=== PATIENT | male | born 1940 | race Caucasian/White ===

== ENCOUNTER → 2018-03-27 14:35 | Outpatient (CLI) | payer MEDICARE, OTHER, SELFPAY ==
[2018-03-27 16:02] LABS: Phosphorus 2.9 mg/dL (2.5-4.9)
[2018-04-01 09:35] LABS: KEPPRA (LEVETIRACETAM) 26.1 ug/mL (10.0-40.0)
== END ==
PROVIDERS: Family Provider Family Medicine; PCP Family Medicine; Visit Provider Nurse Practitioner Acute Care
DX: R56.9 Unspecified convulsions (principal)
CPT/HCPCS: 36415; 80177; 83735; 84100

== ENCOUNTER 2018-06-24 16:21 | Emergency (ER) | payer MEDICARE, OTHER, SELFPAY ==
[2018-06-24 16:22] VITALS: BP 99/78; PULSE 62; RESP 18; TEMP 36.8; O2SAT 92; BMI 23.9
--- NOTE | 2018-06-24 16:53 | CT_ITS ---
STUDY: CT BRAIN WITHOUT CONTRAST REASON FOR EXAM: Male, 77 years old. Fall off lawnmower. RADIATION DOSAGE (If Supplied By Facility): CTDIvol = ( 44.99 ) mGy, DLP = ( 779.24 ) mGycm TECHNIQUE: Transaxial CT imaging of the brain was performed without administration of intravenous contrast material. Individualized dose optimization techniques were used for this CT. COMPARISON: October 28, 2017 FINDINGS: Normal soft tissue structures. Normal calvarium. There is mild cerebral atrophy with widening of the extra-axial spaces and ventricular dilatation. Normal white matter tracts of the cerebral hemispheres. There is a low-attenuation focus again seen within the left basal ganglia consistent with a old lacunar infarct. Normal brainstem. Normal cerebellum. There is no intracranial hemorrhage. There are no findings of an acute ischemic infarction. There are grossly stable rounded opacities within the left maxillary sinus that likely reflect mucous retention cysts or polyps. There is opacification of the left mastoid air cells again visualized consistent with a history of mastoiditis. There is trace opacification of the right mastoid air cells. CT/Brain/Head without Contrast IMPRESSION: Chronic involutional changes of the brain. Old left basal ganglia lacunar infarct. Opacification of the mastoid air cells, left greater than right consistent with a history of mastoiditis. No acute intracranial process. Electronically Signed: Yasmeen Valle MD at 17:56 EDT Tel , Service support ,
[2018-06-24] MEDS: fentaNYL 100 MCG/2 ML Ampul 50 MCG IV (17:18)
--- NOTE | 2018-06-24 17:30 | RAD_ITS ---
STUDY: X-RAY - RIGHT HUMERUS REASON FOR EXAM: Male, 77 years old. Fall off lawnmower. TECHNIQUE: For view(s) of the humerus. COMPARISON: None. FINDINGS: There is a comminuted and impacted proximal humeral fracture. The fracture extends into the humeral head. No dislocation is seen. There is a radial head fracture visualized as well. The bones are diffusely demineralized. There is no demonstrated fracture or osseous destructive process. There is no demonstrated soft tissue abnormality. RAD/Humerus min 2 Views IMPRESSION: Comminuted proximal humeral fracture. Radial head fracture. Electronically Signed: Yasmeen Valle MD at 18:29 EDT Tel , Service support ,
[2018-06-24 18:28] VITALS: BP 129/78; PULSE 72; RESP 14; O2SAT 97
[2018-06-24] MEDS: HYDROmorphone 1 MG/ML Syringe IV (18:28)
--- NOTE | 2018-06-24 18:39 | ED.DCSUM_ITS ---
- ER Visit Summary Date of Service: 06/24/18 Chief Complaint: [Injury right shoulder] History of Present Illness: The patient is a 77 M [presents the emergency department with complaint of injury to the right shoulder that occurred when he fell off of his lawnmower today. Patient was on a riding lawnmower when he rolled off of it into some bushes injuring his right shoulder. Patient did not have loss of consciousness. Patient was unable to get up afterwards. Patient denies the mower landing on top of them. He denies any neck pain or headache. Patient denies chest pain or abdominal pain. Patient denies any hip pain.] Physical Examination: [HEENT-PERRLA, EOMI. Cranial nerves II through XII grossly intact. TMs clear. Mucous membranes moist. No adenopathy. No C- spine tenderness on palpation and he has normal active range of motion is painless. Cardiovascular-regular rate and rhythm without murmur or ectopy Lungs-clear to auscultation, chest wall stable without crepitus or subcu emphysema Abdomen-normoactive bowel sounds, soft, nontender, no rebound or rigidity, no peritoneal signs. Extremities-intact ?4, normal range of motion, normal pulses. Patient has tenderness over the right proximal humerus. He has limited range of motion of the glenohumeral joint secondary to pain. He is neurovascular intact distally. No pain at the radial head or elbow. No pain with pronation or supination of the forearm.] Test Results: [CT scan of the brain without contrast showed an left basal ganglia lacunar infarct otherwise nothing acute or traumatic. Patient had x- rays of the right humerus that showed a proximal humerus fracture and radial head fracture.] Emergency Department Course and Treatment: [Patient initially was given fentanyl 50 mcg IV and he did not have much pain relief with that therefore he was given a milligram of Dilaudid IV. Patient was placed in a sling.] Treatment Plan: [Patient to follow-up with orthopedics on-call Dr. Alfonso Mai within next 3-5 days] Disposition: [Discharged home in stable condition] Impression: [Fall Right proximal humerus fracture Right radial head fracture] This note was generated with [employer] software. It may contain incorrect words, spelling, and punctuation that were not noted in review of the chart prior to signing ED Disposition - Plan for ED Patient: Chief Complaint: Fall Referrals: Kaiden Durham III, MD [Primary Care Provider] -
--- NOTE | 2018-06-24 18:39 | ED.DEP ---
ED Disposition - Plan for ED Patient: Chief Complaint: Fall Instructions: ED Mechanical Fall, ED Fx Upper Ext Prescriptions: Hydrocodone/Acetaminophen [[place] 5-325 Tablet] 1 ea PO 4X/DAY PRN PRN 5 Days #20 tab PRN Reason: Pain Referrals: Kaiden Durham III, MD [Primary Care Provider] - Alfonso Mai DO [STAFF PHYSICIAN] - 3-5 Days
--- NOTE | 2018-06-24 18:42 | DCINST.ED_ITS ---
ED Disposition - Plan for ED Patient: Chief Complaint: Fall Instructions: ED Mechanical Fall, ED Fx Upper Ext Prescriptions: Hydrocodone/Acetaminophen [[place] 5-325 Tablet] 1 ea PO 4X/DAY PRN PRN 5 Days # 20 tab PRN Reason: Pain Referrals: Kaiden Durham III, MD [Primary Care Provider] - Alfonso Mai DO [STAFF PHYSICIAN] - 3-5 Days
== END 2018-06-24 19:17 | disposition home or self-care (01) ==
PROVIDERS: Emergency Provider Emergency Medicine; Family Provider Family Medicine; PCP Family Medicine
DX: S42.201A Unspecified fracture of upper end of right humerus, initial encounter for closed fracture (principal); S52.121A Displaced fracture of head of right radius, initial encounter for closed fracture; W28.XXXA Contact with powered lawn mower, initial encounter; Y93.89 Activity, other specified; Y92.9 Unspecified place or not applicable; I10 Essential (primary) hypertension; G40.909 Epilepsy, unspecified, not intractable, without status epilepticus; Z79.82 Long term (current) use of aspirin; Z87.891 Personal history of nicotine dependence
CPT/HCPCS: 70450; 73060; 93005; 96374; 96375; 99283

== ENCOUNTER → 2018-10-16 10:13 | Outpatient (CLI) | payer MEDICARE, OTHER, SELFPAY ==
[2018-10-16 13:18] LABS: PSA,Total- Diagnostic 0.65 ng/mL (0.0-4.0)
--- OUTSIDE RECORDS SUMMARY | 2018-12-11 12:09 | XMS RPT_ITS ---
:1940 Author Organization [facility] Care Team Providers Name Role Phone SUE THOMPSON (BEHAVIORAL HEALTH ASSOCIATE) Attending Unavailable SUE THOMPSON (BEHAVIORAL HEALTH ASSOCIATE) Referring Unavailable CEBUL III, KAIDEN Christensen Referring Unavailable SUE THOMPSON (BEHAVIORAL HEALTH ASSOCIATE) Referring Unavailable SUE THOMPSON (BEHAVIORAL HEALTH ASSOCIATE) Attending Unavailable SUE THOMPSON (BEHAVIORAL HEALTH ASSOCIATE) Referring Unavailable HENRIQUE REYES Attending Unavailable CEBUL III, KAIDEN A Referring Unavailable SONIYA MOON (PA) Attending Unavailable CEBUL III, KAIDEN A Referring Unavailable SUE THOMPSON (BEHAVIORAL HEALTH ASSOCIATE) Referring Unavailable SUE THOMPSON (BEHAVIORAL HEALTH ASSOCIATE) Referring Unavailable CEBUL III, KAIDEN A Attending Unavailable SUE THOMPSON (BEHAVIORAL HEALTH ASSOCIATE) Referring Unavailable Saba Thomason BEHAVIORAL HEALTH ASSOCIATE-C Attending Unavailable Cebul III, Kaiden Primary Care Unavailable Saba Thomason BEHAVIORAL HEALTH ASSOCIATE-C Referring Unavailable Cebul III, Kaiden Primary Care Unavailable Jessi Felix Attending Unavailable Ruperto Masters Attending Unavailable Ruperto Masters Referring Unavailable Cebul III, Kaiden Primary Care Unavailable PROBLEMS PROBLEMS DATE TYPE CONDITION / CODE ATTENDING STATUS SOURCE 10/16/2018 Unknown Z12.5 - Encounter Ruperto Masters Active [facility] for screening for [facility] malignant neoplasm [facility] / Repository Z12.5(ICD-10) 10/16/2018 Unknown Z85.46 - Personal Ruperto Masters Active [facility] history of Community malignant neoplasm [facility] / Repository Z85.46(ICD-10) 06/24/2018 Unknown S42.309A - Jessi Felix Active [facility] Unspecified Community fracture of shaft [facility] of humerus, Repository unspecified arm, initial encounter for closed fracture / S42.309A(ICD-10) 06/20/2018 Active Encounter for NA Active [facility] screening for [place] malignant neoplasm Repository of colon / Z12.11(ICD-10) 05/30/2018 Active Unknown / ERIC, Active [facility] UNK(Unknown) HENRIQUE T [place] Repository 05/02/2018 Active Essential NA Active [facility] (primary) [place] hypertension / Repository I10(ICD-10) 05/02/2018 Active Other forms of NA Active [facility] dyspnea / [place] R06.09(ICD-10) Repository 09/19/2017 Active Vitamin D NA Active [facility] deficiency, [place] unspecified / Repository E55.9(ICD-10) 05/02/2018 Active Other osteoporosis NA Active [facility] without current [place] pathological Repository fracture / M81.8(ICD-10) PROCEDURES PROCEDURES No Procedure Records FoundRESULTS RESULTS PSA,TOTAL- DIAGNOSTIC Collected: 10/16/2018 Status: F Source: [place] 10:23 AM [facility] TYPE CODE TESTS RESULT OUT OF RANGE REFERENCE UNITS LAB L501.9940 0.0-4.0 ng/mL PSA, Normal DIAGNOSTIC 0.65 Result Comment: This test was performed using the TPSA assay method for the [employer] chemistry system. Values obtained with different assay methods cannot be used interchangably. When changing PSA assays in the course of monitoring a patient, additional sequential testing should be carried out to confirm baseline values. Performed By: #### L501.9940 #### [facility] [address] [place] [address] [place], [address] 12 LEAD ELECTROCARDIOGRAM Observed: 06/30/2018 Status: F Source: [place] 3:04 PM [facility] Cardiovascular Services [address] [place] [address] 12 Lead EKG 06/24/18 1746 MR#: [id number] Acct: [id number] Name: RAMSES GILLILAND Rep #: [id number] : 1940 77 From: Brady Ferrer MD Attending Dr: Status: DEP ER Ordering Dr: Jessi Felix DO Date: 06/24/18 Location: ED Sex: M C Admitted: Test Reason : Blood Pressure : / mmHG Vent. Rate : 096 BPM Atrial Rate : 089 BPM P-R Int : 000 ms QRS Dur : 098 ms QT Int : 386 ms P-R-T Axes : 000 067 -05 degrees QTc Int : 487 ms Atrial fibrillation with occasional ventricular-paced complexes and with premature ventricular or aberrantly conducted complexes ST AND T wave abnormality, consider anterior ischemia Prolonged QT Abnormal ECG Confirmed by BRADY FERRER MD ([id number]), manager editorial KENDALL ISIDRO ([id number]) on 06/30/2018 3:04:29 PM Referred By: Confirmed By:BRADY FERRER MD 06/30/18 1504 Date Brady Ferrer MD CC: Kaiden Durham III, MD; Jessi Felix DO Signed PROGRESS Observed: 06/27/2018 Status: COMPLETED Source: [place] 3:56 PM [facility] REPOSITORY O ID: [id number] Author: Kaiden Durham III Service: (none) Author Type: Physician Type: Progress Notes Filed: 06/27/2018 6:21 PM Note Text: SUBJECTIVE: This is a 77 year old male that is here today for ER Follow Up. 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 Seen by Dr Alfonso Mai, ortho--tx with sling. No surgery. Reports and copy of the x-ray reviewed. 2. BP-- 3. seizure disorder. Recent visit with Dr Deleon. No recent seizure. 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) 01/31/2015 - Seizures (HCC) 2006 - Tobacco abuse 09/30/2014 - Vascular dementia 09/30/2014 - Vertebral compression fracture 11/04/2017 - Vitamin D deficiency 09/19/2017 Current Outpatient Prescriptions on File Prior to Visit: multivit-min/FA/lycopen/lutein (CENTRUM SILVER MEN ORAL) Take by mouth once daily. lactobacillus combination no.8 (ADULT PROBIOTIC ORAL) Take by mouth as directed. ASCORBIC ACID, VITAMIN C, ORAL Take by mouth as directed. Cholecalciferol, Vitamin D3, 2,000 unit cap Take 1 capsule by mouth once daily. amLODIPine (NORVASC) 5 mg tablet Take 1 tablet by mouth once daily. HYDROcodone-acetaminophen (NORCO) 5-325 mg per tablet Take 1 tablet by mouth every 6 hours as needed (severe pain). levETIRAcetam (KEPPRA) 750 mg tablet Take 750 mg by mouth twice daily. aspirin, enteric coated (ASPIRIN, ENTERIC COATED) 81 mg EC tablet Take 81 mg by mouth once daily. No current facility-administered medications on file prior to visit. FAMILY HISTORY Problem Relation Age of Onset - COPD Mother - COPD Father - Breast Cancer Sister - Cancer Brother Social History Substance Use Topics - Smoking status: Former Smoker Packs/day: 1.00 Years: 30.00 Types: Cigarettes - Smokeless tobacco: Never Used - Alcohol use No BP 125/85 Pulse 87 Resp 18 Ht 188 cm (6' 2) Wt 82.6 kg (182 lb) BMI 23.37 kg/m? . OBJECTIVE: APPEARANCE Well appearing, alert, in no acute distress, well-hydrated, well nourished. NECK Supple, no adenopathy; thyroid symmetric, normal size, no bruits HEART RRR with normal S1 and S2, no murmurs, no gallops, no JVD appreciated LUNG clear to auscultation EXTREMITIES right arm is in a sling with elbow held at 90?. There is mild tenderness in palpating the right lateral deltoid area. No significant swelling of the forearm or right hand Lab Results for LARGE RAMSES S ( ) as of 06/27/2018 16:05 Ref. Range 05/02/2018 15:13 Sodium Latest Ref Range: 136 - 144 mmol/L 145 (H) Potassium Latest Ref Range: 3.7 - 5.1 mmol/L 4.3 Chloride Latest Ref Range: 97 - 105 mmol/L 106 (H) CO2 Latest Ref Range: 22 - 30 mmol/L 27 BUN Latest Ref Range: 9 - 24 mg/dL 13 Creatinine Latest Ref Range: 0.73 - 1.22 mg/dL 0.78 Glucose Latest Ref Range: 74 - 99 mg/dL 90 Calcium Latest Ref Range: 8.5 - 10.2 mg/dL 9.4 Anion Gap Latest Ref Range: 9 - 18 mmol/L 12 eGFR- Unknown >60 eGFR-All Other Races Latest Units: . >60 Vitamin D 25 Hydroxy Latest Ref Range: 31.0 - 80.0 ng/mL 70.7 Hematocrit Latest Ref Range: 39.0 - 51.0 % 44.3 WBC Latest Ref Range: 3.70 - 11.00 k/uL 5.68 RBC Latest Ref Range: 4.20 - 6.00 m/uL 4.57 Hemoglobin Latest Ref Range: 13.0 - 17.0 g/dL 14.3 Platelet Count Latest Ref Range: 150 - 400 k/uL 223 MCV Latest Ref Range: 80.0 - 100.0 fL 96.9 MCH Latest Ref Range: 26.0 - 34.0 pG 31.3 MCHC Latest Ref Range: 30.5 - 36.0 g/dL 32.3 MPV Latest Ref Range: 9.0 - 12.7 fL 12.4 RDW-CV Latest Ref Range: 11.5 - 15.0 % 13.2 Neut% Latest Units: % 56.8 Abs Neut (ANC) Latest Ref Range: 1.45 - 7.50 k/uL 3.20 Lymph% Latest Units: % 26.2 Abs Lymph Latest Ref Range: 1.00 - 4.00 k/uL 1.49 Lander% Latest Units: % 13.9 Abs Lander Latest Ref Range: <0.87 k/uL 0.79 Eosin% Latest Units: % 2.6 Abs Eosin Latest Ref Range: <0.46 k/uL 0.15 Baso% Latest Units: % 0.5 Abs Baso Latest Ref Range: <0.11 k/uL 0.03 Nucleated Reds Latest Ref Range: 0 /100 WBC 0.0 Absolute nRBC Latest Ref Range: <0.01 k/uL <0.01 Diff Type Unknown Auto Diff ASSESSMENT: non displaced impacted subcapital fx R humerus, acute hypertension--at goal 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--stable former smoker PLAN: healthy diet and careful activity follow up with orthopedist and neurologist as appointed same medications return to office 1 yr and as needed SADIA Vaca MD, III MD CNOV Observed: 06/27/2018 Status: COMPLETED Source: [place] 3:00 PM [facility] REPOSITORY Office Visit (FAMPWS) RAMSES GILLILAND ([id number]) 1940 M Date Time Provider Department 06/27/18 3:00 PM KAIDEN DURHAM III During your visit today, we recorded the following information about you: Pulse Respiration Blood pressure Weight 87/minute 18/minute 125/85 82.6 kg Height 1.88 m Kaiden Durham III MD 06/27/2018 6:21 PM Signed SUBJECTIVE: This is a 77 year old male that is here today for ER Follow Up. 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 Seen by Dr Alfonso Mai, ortho--tx with sling. No surgery. Reports and copy of the x-ray reviewed. 2. BP-- 3. seizure disorder. Recent visit with Dr Deleon. No recent seizure. PAST MEDICAL HISTORY Diagnosis Date - Age-related osteoporosis with current pathological fracture 11/04/2017 Dx 09/2017 and started on fosamax - Cataracts, bilateral - Diarrhea following gastrointestinal surgery 09/30/2014 - Heart murmur - History of CVA (cerebrovascular accident) 09/30/2014 - Other osteoporosis without current pathological fracture 10/02/2017 Dx 09/2017 and started on fosamax - Prostate cancer (HCC) 2007 45 radiation treatments - Seizure disorder as sequela of cerebrovascular accident ([facility]) 01/31/2015 - Seizures ([facility]) 2007 - Tobacco abuse 09/30/2014 - Vascular dementia 09/30/2014 - Vertebral compression fracture 11/04/2017 - Vitamin D deficiency 09/19/2017 Current Outpatient Prescriptions on File Prior to Visit: multivit-min/FA/lycopen/lutein (CENTRUM SILVER MEN ORAL) Take by mouth once daily. lactobacillus combination no.8 (ADULT PROBIOTIC ORAL) Take by mouth as directed. ASCORBIC ACID, VITAMIN C, ORAL Take by mouth as directed. Cholecalciferol, Vitamin D3, 2,000 unit cap Take 1 capsule by mouth once daily. amLODIPine (NORVASC) 5 mg tablet Take 1 tablet by mouth once daily. HYDROcodone-acetaminophen (NORCO) 5-325 mg per tablet Take 1 tablet by mouth every 6 hours as needed (severe pain). levETIRAcetam (KEPPRA) 750 mg tablet Take 750 mg by mouth twice daily. aspirin, enteric coated (ASPIRIN, ENTERIC COATED) 81 mg EC tablet Take 81 mg by mouth once daily. No current facility-administered medications on file prior to visit. FAMILY HISTORY Problem Relation Age of Onset - COPD Mother - COPD Father - Breast Cancer Sister - Cancer Brother Social History Substance Use Topics - Smoking status: Former Smoker Packs/day: 1.00 Years: 30.00 Types: Cigarettes - Smokeless tobacco: Never Used - Alcohol use No BP 125/85 Pulse 87 Resp 18 Ht 188 cm (6' 2) Wt 82.6 kg (182 lb) BMI 23.37 kg/m? . OBJECTIVE: APPEARANCE Well appearing, alert, in no acute distress, well- hydrated, well nourished. NECK Supple, no adenopathy; thyroid symmetric, normal size, no bruits HEART RRR with normal S1 and S2, no murmurs, no gallops, no JVD appreciated LUNG clear to auscultation EXTREMITIES right arm is in a sling with elbow held at 90?. There is mild tenderness in palpating the right lateral deltoid area. No significant swelling of the forearm or right hand Lab Results for RAMSES GILLILAND ( ) as of 06/27/2018 16:05 Ref. Range 05/02/2018 15:13 Sodium Latest Ref Range: 136 - 144 mmol/L 145 (H) Potassium Latest Ref Range: 3.7 - 5.1 mmol/L 4.3 Chloride Latest Ref Range: 97 - 105 mmol/L 106 (H) CO2 Latest Ref Range: 22 - 30 mmol/L 27 BUN Latest Ref Range: 9 - 24 mg/dL 13 Creatinine Latest Ref Range: 0.73 - 1.22 mg/dL 0.78 Glucose Latest Ref Range: 74 - 99 mg/dL 90 Calcium Latest Ref Range: 8.5 - 10.2 mg/dL 9.4 Anion Gap Latest Ref Range: 9 - 18 mmol/L 12 eGFR- Unknown >60 eGFR-All Other Races Latest Units: . >60 Vitamin D 25 Hydroxy Latest Ref Range: 31.0 - 80.0 ng/mL 70.7 Hematocrit Latest Ref Range: 39.0 - 51.0 % 44.3 WBC Latest Ref Range: 3.70 - 11.00 k/uL 5.68 RBC Latest Ref Range: 4.20 - 6.00 m/uL 4.57 Hemoglobin Latest Ref Range: 13.0 - 17.0 g/dL 14.3 Platelet Count Latest Ref Range: 150 - 400 k/uL 223 MCV Latest Ref Range: 80.0 - 100.0 fL 96.9 MCH Latest Ref Range: 26.0 - 34.0 pG 31.3 MCHC Latest Ref Range: 30.5 - 36.0 g/dL 32.3 MPV Latest Ref Range: 9.0 - 12.7 fL 12.4 RDW-CV Latest Ref Range: 11.5 - 15.0 % 13.2 Neut% Latest Units: % 56.8 Abs Neut (ANC) Latest Ref Range: 1.45 - 7.50 k/uL 3.20 Lymph% Latest Units: % 26.2 Abs Lymph Latest Ref Range: 1.00 - 4.00 k/uL 1.49 Lander% Latest Units: % 13.9 Abs Lander Latest Ref Range: <0.87 k/uL 0.79 Eosin% Latest Units: % 2.6 Abs Eosin Latest Ref Range: <0.46 k/uL 0.15 Baso% Latest Units: % 0.5 Abs Baso Latest Ref Range: <0.11 k/uL 0.03 Nucleated Reds Latest Ref Range: 0 /100 WBC 0.0 Absolute nRBC Latest Ref Range: <0.01 k/uL <0.01 Diff Type Unknown Auto Diff ASSESSMENT: non displaced impacted subcapital fx R humerus, acute hypertension--at goal 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--stable former smoker PLAN: healthy diet and careful activity follow up with orthopedist and neurologist as appointed same medications return to office 1 yr and as needed SADIA Vaca MD, III MD Frank A Cebul, III MD 06/27/2018 4:06 PM Signed PLAN: healthy diet and careful activity follow up with orthopedist and neurologist as appointed same medications return to office 1 yr and as needed Kaiden Durham III MD Referring Provider: SUE THOMPSON (BEHAVIORAL HEALTH ASSOCIATE) [[id number]] Allergies As of Date: 06/27/2018 (No Known Allergies) Date Reviewed: 06/27/2018 Reviewed by: Beth ([facility]) KAREN Antonio - Fully Assessed Primary Visit Diagnosis: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) [I69.398, G40.909] Other Visit Diagnoses:Hypertension, essential [I10] Other closed fracture of shaft of right humerus, sequela [S42.391S] Order(s):amLODIPine (NORVASC) 5 mg tabletTake 1 tablet by mouth once daily.Disp: 90 tabletRfl: 3 Prescriptions as of 06/27/2018 Sig: AMLODIPINE 5 MG TABLET Take 1 tablet by mouth once d* CENTRUM SILVER MEN ORAL Take by mouth once daily. ADULT PROBIOTIC ORAL Take by mouth as directed. ASCORBIC ACID (VITAMIN C) ORAL Take by mouth as directed. CHOLECALCIFEROL (VITAMIN D3) * Take 1 capsule by mouth once * HYDROCODONE 5 MG-ACETAMINOPHE* Take 1 tablet by mouth every * LEVETIRACETAM 750 MG TABLET Take 750 mg by mouth twice da* ASPIRIN 81 MG TABLET,DELAYED * Take 81 mg by mouth once rohit* Problem List As Of Date 06/27/2018 Noted Resolved Rectal mass [K62.9] INVALID FOR*09/30/2014 History of duodenal ulcer [Z87.19] INVALID FOR* Prostate cancer (HCC) [C61] INVALID FOR* Tobacco abuse [Z72.0] INVALID FOR*09/18/2017 History of CVA (cerebrovascular accident) [Z86.*INVALID FOR* Memory loss [R41.3] INVALID FOR* Vascular dementia [F01.50] INVALID FOR* Diarrhea following gastrointestinal surgery [R1*INVALID FOR*11/04/2017 Seizure disorder as sequela of cerebrovascular *INVALID FOR* Vitamin D deficiency [E55.9] INVALID FOR* More... Vertebral compression fracture (HCC) [OUG9313] INVALID FOR* Age-related osteoporosis with current pathologi*INVALID FOR* More... Hypertension, essential [I10] INVALID FOR* Personal history of malignant neoplasm of prost*INVALID FOR* Closed fracture of shaft of humerus [S42.309A] INVALID FOR* Encounter for screening for malignant neoplasm *INVALID FOR* Other instructions from your clinician: PLAN: healthy diet and careful activity follow up with orthopedist and neurologist as appointed same medications return to office 1 yr and as needed Kaiden Durham III MD Prescriptions ordered this encounter Disp Refills Start End AMLODIPINE 5 MG TABLET 90 t* 3 06/27/2018 Route: ORAL Sig: Take 1 tablet by mouth once daily. Medications Discontinued During This Encounter amLODIPine (NORVASC) 5 mg tablet 30 t* 1 05/02/2018 06/27/2018 Route: ORAL Sig: Take 1 tablet by mouth once daily. Disc: Reason for discontinue is not on file. Encounter Status:Closed by KAIDEN DURHAM III, MD on 06/27/18 DISCHARGE INSTRUCTION Observed: 06/24/2018 Status: F Source: [place] 6:42 PM [facility] Medical Records Department [address] [place] [address] Discharge Instruction 06/24/18 1839 MR#: [id number] Acct: [id number] Name: RAMSES GILLILAND Rep #: [id number] : 1940 77 From: Jessi Felix DO PCP: Kaiden Durham III, MD Status: REG ER ED Disposition - Plan for ED Patient: Chief Complaint: Fall Instructions: ED Mechanical Fall, ED Fx Upper Ext Prescriptions: Hydrocodone/Acetaminophen [[place] 5-325 Tablet] 1 ea PO 4X/DAY PRN PRN 5 Days #20 tab PRN Reason: Pain Referrals: Kaiden Durham III, MD [Primary Care Provider] - Alfonso Mai DO [STAFF PHYSICIAN] - 3-5 Days What to do if you have Problems For any increased pain, shortness of breath, bleeding, nausea or vomiting, chest pain, or any unexpected problems, contact your Primary Care Provider. Call [facility] ([phone]) or report to the closest Emergency Room. Call 911 if necessary. 06/24/18 184 <Electronically signed by Jessi Felix DO> Date Jessi Felix DO Cosigner Signature (If Indicated): Date CC: Kaiden Durahm III, MD EMERGENCY DEPARTMENT Observed: 06/24/2018 Status: F Source: [place] SUMMARY 6:39 PM [facility] Medical Records Department [address] [place] [address] Emergency Department Summary 06/24/18 1837 MR#: [id number] Acct: [id number] Name: RAMSES GILLILAND Rep #: [id number] : 1940 77 From: Jessi Felix DO PCP: Kaiden Durham III, MD Status: REG ER - ER Visit Summary Date of Service: 06/24/18 Chief Complaint: [Injury right shoulder] History of Present Illness: The patient is a 77 M [presents the emergency department with complaint of injury to the right shoulder that occurred when he fell off of his lawnmower today. Patient was on a riding lawnmower when he rolled off of it into some bushes injuring his right shoulder. Patient did not have loss of consciousness. Patient was unable to get up afterwards. Patient denies the mower landing on top of them. He denies any neck pain or headache. Patient denies chest pain or abdominal pain. Patient denies any hip pain.] Physical Examination: [HEENT-PERRLA, EOMI. Cranial nerves II through XII grossly intact. TMs clear. Mucous membranes moist. No adenopathy. No C-spine tenderness on palpation and he has normal active range of motion is painless. Cardiovascular-regular rate and rhythm without murmur or ectopy Lungs-clear to auscultation, chest wall stable without crepitus or subcu emphysema Abdomen-normoactive bowel sounds, soft, nontender, no rebound or rigidity, no peritoneal signs. Extremities-intact 4, normal range of motion, normal pulses. Patient has tenderness over the right proximal humerus. He has limited range of motion of the glenohumeral joint secondary to pain. He is neurovascular intact distally. No pain at the radial head or elbow. No pain with pronation or supination of the forearm.] Test Results: [CT scan of the brain without contrast showed an left basal ganglia lacunar infarct otherwise nothing acute or traumatic. Patient had x-rays of the right humerus that showed a proximal humerus fracture and radial head fracture.] Emergency Department Course and Treatment: [Patient initially was given fentanyl 50 mcg IV and he did not have much pain relief with that therefore he was given a milligram of Dilaudid IV. Patient was placed in a sling.] Treatment Plan: [Patient to follow-up with orthopedics on- call Dr. Alfonso Mai within next 3-5 days] Disposition: [Discharged home in stable condition] Impression: [Fall Right proximal humerus fracture Right radial head fracture] This note was generated with GoGoPin dictation software. It may contain incorrect words, spelling, and punctuation that were not noted in review of the chart prior to signing ED Disposition - Plan for ED Patient: Chief Complaint: Fall Referrals: Kaiden Durham III, MD [Primary Care Provider] - What to do if you have Problems For any increased pain, shortness of breath, bleeding, nausea or vomiting, chest pain, or any unexpected problems, contact your Primary Care Provider. Call [facility] ([phone]) or report to the closest Emergency Room. Call 911 if necessary. 06/24/18 6377 <Electronically signed by Jessi Felix DO> Date Jessi Felix DO Cosigner Signature (If Indicated): Date CC: Kaiden Durham III, MD BRAIN/HEAD WITHOUT Observed: 06/24/2018 Status: F Source: [place] CONTRAST 4:54 PM [facility] Imaging Services [address] [place] [address] Brain/Head without Contrast MR#: [id number] Acct: [id number] Name: RAMSES GILLILAND Rep #: [id number] : 1940 M 77 From: Yasmeen Valle MD PCP: Kaiden Durham III, MD Status: REG ER Study: Brain/Head without Contrast Date of Exam: 06/24/18 Exam# [id number] Ordering Dr: Jessi Felix DO STUDY: CT BRAIN WITHOUT CONTRAST REASON FOR EXAM: Male, 77 years old. Fall off lawnmower. RADIATION DOSAGE (If Supplied By Facility): CTDIvol = ( 44.99 ) mGy, DLP = ( 779.24 ) mGycm TECHNIQUE: Transaxial CT imaging of the brain was performed without administration of intravenous contrast material. Individualized dose optimization techniques were used for this CT. COMPARISON: October 28, 2017 FINDINGS: Normal soft tissue structures. Normal calvarium. There is mild cerebral atrophy with widening of the extra- axial spaces and ventricular dilatation. Normal white matter tracts of the cerebral hemispheres. There is a low-attenuation focus again seen within the left basal ganglia consistent with a old lacunar infarct. Normal brainstem. Normal cerebellum. There is no intracranial hemorrhage. There are no findings of an acute ischemic infarction. There are grossly stable rounded opacities within the left maxillary sinus that likely reflect mucous retention cysts or polyps. There is opacification of the left mastoid air cells again visualized consistent with a history of mastoiditis. There is trace opacification of the right mastoid air cells. CT/Brain/Head without Contrast IMPRESSION: Chronic involutional changes of the brain. Old left basal ganglia lacunar infarct. Opacification of the mastoid air cells, left greater than right consistent with a history of mastoiditis. No acute intracranial process. Electronically Signed: Yasmeen Valle MD at 17:56 EDT Tel , Service support , CC: Kaiden Durham III, MD; Jessi Felix DO Immunologist: Signed HUMERUS MIN 2 VIEWS Observed: 06/24/2018 Status: F Source: [place] 4:54 PM [facility] Imaging Services [address] [place] [address] Humerus min 2 Views MR#: [id number] Acct: [id number] Name: RAMSES GILLILAND Rep #: [id number] : 1940 M 77 From: Yasmeen Valle MD PCP: Kaiden Durham III, MD Status: REG ER Study: Humerus min 2 Views Date of Exam: 06/24/18 Exam# [id number] Ordering Dr: Jessi Felix DO STUDY: X-RAY - RIGHT HUMERUS REASON FOR EXAM: Male, 77 years old. Fall off lawnmower. TECHNIQUE: For view(s) of the humerus. COMPARISON: None. FINDINGS: There is a comminuted and impacted proximal humeral fracture. The fracture extends into the humeral head. No dislocation is seen. There is a radial head fracture visualized as well. The bones are diffusely demineralized. There is no demonstrated fracture or osseous destructive process. There is no demonstrated soft tissue abnormality. RAD/Humerus min 2 Views IMPRESSION: Comminuted proximal humeral fracture. Radial head fracture. Electronically Signed: Yasmeen Valle MD at 18:29 EDT Tel , Service support , CC: Kaiden Durham III, MD; Jessi Felix DO Immunologist: Signed FECAL OCCULT BLD Collected: 06/20/2018 Status: F Source: [facility] 12:10 PM [facility] REPOSITORY TYPE CODE TESTS RESULT OUT OF REFERENCE UNITS RANGE LAB IFO Negative Immuno Negative FOB Result Comment: This test was developed and its performance characteristics determined by [facility] [place] ([facility] It has not been cleared or approved by the FDA. [facility] is regulated under CLIA as qualified to perform high-complexity testing. This test is used for clinical purposes. It should not be regarded as investigational or for research. Performed By: #### IFOBT #### [facility] [address] [place], [place] [address] PROGRESS Observed: 06/20/2018 Status: COMPLETED Source: [facility] 11:03 AM [facility] REPOSITORY HNO ID: [id number] Author: Mami Hines LPN Service: (none) Author Type: (none) Type: Progress Notes Filed: 06/20/2018 11:10 AM Note Text: Manual Readin/82 Pulse: 78 Reason for blood pressure check - Other elevated BP at home Patient is: Taking medication as prescribed Yes Took medication today Yes If no, date medication last taken N/A Experiencing side effects No BP was elevated at times in office and at home per Sue Thompson. Taking all medications as prescribed. Denies any chest pain, shortness of breath, dizziness, or headaches. No caffeine use. Past personal history of tobacco use; no current exposure. Alert and oriented. Pt has been identified by name and birthdate: Yes Allergies reviewed: Yes Latex allergy: no. Medication - prescribed and OTC reviewed and updated: Yes Do you need any prescription refills prior to your next visit: No Health Maintenance: Reviewed and not up to date and provider notified Patient advised to continue with current medications and would be contacted with any further instructions after review by Sue Thompson NP. Mami Hines LPN CNNURSE Observed: 06/20/2018 Status: COMPLETED Source: [facility] 11:00 AM [facility] REPOSITORY Nurse Visit (FAMPWS) RAMSES GILLILAND ([id number]) 1940 M Date Time Provider Department 06/20/18 11:00 AM [place] NURSE JANINA During your visit today, we recorded the following information about you: Pulse Blood pressure 78/minute 118/82 Mami Hines LPN 06/20/2018 11:10 AM Signed Manual Readin/82 Pulse: 78 Reason for blood pressure check - Other elevated BP at home Patient is: Taking medication as prescribed Yes Took medication today Yes If no, date medication last taken N/A Experiencing side effects No BP was elevated at times in office and at home per Sue Thompson. Taking all medications as prescribed. Denies any chest pain, shortness of breath, dizziness, or headaches. No caffeine use. Past personal history of tobacco use; no current exposure. Alert and oriented. Pt has been identified by name and birthdate: Yes Allergies reviewed: Yes Latex allergy: no. Medication - prescribed and OTC reviewed and updated: Yes Do you need any prescription refills prior to your next visit: No Health Maintenance: Reviewed and not up to date and provider notified Patient advised to continue with current medications and would be contacted with any further instructions after review by Sue Thompson NP. Mami Hines LPN Referring Provider: SUE THOMPSON (BEHAVIORAL HEALTH ASSOCIATE) [[id number]] Allergies As of Date: 06/20/2018 (No Known Allergies) Date Reviewed: 06/12/2018 Reviewed by: Soniya Leonard) Sarai - Fully Assessed Reason for Visit: Blood Pressure Check [195] Primary Visit Diagnosis:Hypertension, essential [I10] Prescriptions as of 06/20/2018 Sig: CENTRUM SILVER MEN ORAL Take by mouth once daily. ADULT PROBIOTIC ORAL Take by mouth as directed. ASCORBIC ACID (VITAMIN C) ORAL Take by mouth as directed. CHOLECALCIFEROL (VITAMIN D3) * Take 1 capsule by mouth once * AMLODIPINE 5 MG TABLET Take 1 tablet by mouth once d* HYDROCODONE 5 MG-ACETAMINOPHE* Take 1 tablet by mouth every * LEVETIRACETAM 750 MG TABLET Take 750 mg by mouth twice da* ASPIRIN 81 MG TABLET,DELAYED * Take 81 mg by mouth once rohit* Problem List As Of Date 06/20/2018 Noted Resolved Rectal mass [K62.9] INVALID FOR*09/30/2014 History of duodenal ulcer [Z87.19] INVALID FOR* Prostate cancer (HCC) [C61] INVALID FOR* Tobacco abuse [Z72.0] INVALID FOR*09/18/2017 History of CVA (cerebrovascular accident) [Z86.*INVALID FOR* Memory loss [R41.3] INVALID FOR* Vascular dementia [F01.50] INVALID FOR* Diarrhea following gastrointestinal surgery [R1*INVALID FOR*11/04/2017 Seizure disorder as sequela of cerebrovascular *INVALID FOR* Vitamin D deficiency [E55.9] INVALID FOR* More... Vertebral compression fracture (HCC) [MCH3566] INVALID FOR* Age-related osteoporosis with current pathologi*INVALID FOR* More... Hypertension, essential [I10] INVALID FOR* Encounter Status:Closed by MAMI HINES LPN on 06/20/18 PROGRESS Observed: 06/12/2018 Status: COMPLETED Source: [facility] 11:06 AM [facility] REPOSITORY O ID: [id number] Author: Soniya Moon (Pa) Service: (none) Author Type: Physician Blade Groover Type: Progress Notes Filed: 06/12/2018 11:08 AM Note Text: FOLLOW UP VISIT - SKIN LESION NAME: Ramses Oquendo [facility] NO.: [id number] DATE OF SERVICE: 06/12/2018 : 1940 REFERRING PHYSICIAN: Kaiden Durham III MD Ramses is a patient I am following for a skin lesion on his right arm. Dr. Reyes performed an excision of this skin lesion on 05/30/18. The patient notes no complaints since the procedure. The patient returns today for wound check and suture removal. The pathology returned as: FINAL DIAGNOSIS A. Skin, right upper arm, excision - Invasive well-differentiated squamous cell carcinoma, keratoacanthoma-type. - Margins negative for tumor. VITALS: There were no vitals taken for this visit. On examination, the skin incision is healing well with no signs of infection or inflammation. The sutures were removed and Steri- Strips were applied. Assessment IMPRESSION: Status post excision of invasive squamous cell carcinoma right arm, completely excised PLAN: If the patient notes any problems or signs of wound infections, the patient should contact me immediately. Diagnoses: (C44.622) Squamous cell carcinoma, arm, right (primary encounter diagnosis) Return to Clinic: The patient is instructed to follow- up with me as needed. DOREEN Santos Observed: 06/12/2018 Status: COMPLETED Source: [facility] 10:00 AM [facility] REPOSIT[facility] Office Visit (GENSWS) RAMSES GILLILAND ([id number]) 1940 M Date Time Provider Department 06/12/18 10:00 AM SONIYA MOON (PA) During your visit today, we recorded the following information about you: Soniya Moon PA-C 06/12/2018 11:08 AM Signed FOLLOW UP VISIT - SKIN LESION NAME: Ramses Gilliland [facility] NO.: [id number] DATE OF SERVICE: 06/12/2018 : 1940 REFERRING PHYSICIAN: Kaiden Durham III MD Ramses is a patient I am following for a skin lesion on his right arm. Dr. Reyes performed an excision of this skin lesion on 05/30/18. The patient notes no complaints since the procedure. The patient returns today for wound check and suture removal. The pathology returned as: FINAL DIAGNOSIS A. Skin, right upper arm, excision - Invasive well-differentiated squamous cell carcinoma, keratoacanthoma-type. - Margins negative for tumor. VITALS: There were no vitals taken for this visit. On examination, the skin incision is healing well with no signs of infection or inflammation. The sutures were removed and Steri-Strips were applied. Assessment IMPRESSION: Status post excision of invasive squamous cell carcinoma right arm, completely excised PLAN: If the patient notes any problems or signs of wound infections, the patient should contact me immediately. Diagnoses: (C44.622) Squamous cell carcinoma, arm, right (primary encounter diagnosis) Return to Clinic: The patient is instructed to follow- up with me as needed. Soniya Moon PA-C Referring Provider: KAIDEN DURHAM III [[id number]] Allergies As of Date: 06/12/2018 (No Known Allergies) Date Reviewed: 06/12/2018 Reviewed by: Soniya Moon (Pa) - Fully Assessed Reason for Visit: Post Op [174] Cmt: post op Rt arm skin excision Primary Visit Diagnosis:Squamous cell carcinoma, arm, right [C44.622] Prescriptions as of 06/12/2018 Sig: CENTRUM SILVER MEN ORAL Take by mouth once daily. ADULT PROBIOTIC ORAL Take by mouth as directed. ASCORBIC ACID (VITAMIN C) ORAL Take by mouth as directed. CHOLECALCIFEROL (VITAMIN D3) * Take 1 capsule by mouth once * AMLODIPINE 5 MG TABLET Take 1 tablet by mouth once d* HYDROCODONE 5 MG-ACETAMINOPHE* Take 1 tablet by mouth every * LEVETIRACETAM 750 MG TABLET Take 750 mg by mouth twice da* ASPIRIN 81 MG TABLET,DELAYED * Take 81 mg by mouth once rohit* Problem List As Of Date 06/12/2018 Noted Resolved Rectal mass [K62.9] INVALID FOR*09/30/2014 History of duodenal ulcer [Z87.19] INVALID FOR* Prostate cancer (HCC) [C61] INVALID FOR* Tobacco abuse [Z72.0] INVALID FOR*09/18/2017 History of CVA (cerebrovascular accident) [Z86.*INVALID FOR* Memory loss [R41.3] INVALID FOR* Vascular dementia [F01.50] INVALID FOR* Diarrhea following gastrointestinal surgery [R1*INVALID FOR*11/04/2017 Seizure disorder as sequela of cerebrovascular *INVALID FOR* Vitamin D deficiency [E55.9] INVALID FOR* More... Vertebral compression fracture (HCC) [BKU9023] INVALID FOR* Age-related osteoporosis with current pathologi*INVALID FOR* More... Hypertension, essential [I10] INVALID FOR* Follow-up and Disposition History Recorded Encounter Status:Closed by SONIYA MOON PA-C on 06/12/18 PROGRESS Observed: 05/31/2018 Status: COMPLETED Source: [facility] 8:36 AM [facility] REPOSITORY O ID: [id number] Author: Henrique Reyes Service: (none) Author Type: Physician Type: Progress Notes Filed: 06/03/2018 11:06 AM Note Text: HISTORY AND PHYSICAL Ramses Azra Gilliland 1940 REFERRING PHYSICIAN: Kaiden Durham III, MD CHIEF COMPLAINT: skin lesion HPI: The patient is a 77 year old male. He has a single skin lesion on his right upper lateral arm. He notes it has been there for 2 months. It is suspicious for a basal cell carcinoma. 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) 01/31/2015 - Seizures (HCC) 2006 - Tobacco abuse 09/30/2014 - Vascular dementia 09/30/2014 - Vertebral compression fracture 11/04/2017 - Vitamin D deficiency 09/19/2017 OPERATIONS: PAST SURGICAL HISTORY Procedure Laterality Date - APPENDECTOMY remote - CATARACT SURGERY, COMPLEX 2011, 2012 IOLs - CHOLECYSTECTOMY 2004 laparoscopic - CYSTOSCOPY 2008 - PAST SURGICAL HISTORY OF 2007 prostate cancer external radiation rx - PAST SURGICAL HISTORY OF surgery for PUD complications Billroth II CURRENT MEDICATIONS: Current Outpatient Prescriptions: multivit-min/FA/lycopen/lutein (CENTRUM SILVER MEN ORAL) Take by mouth once daily. Disp: Rfl: lactobacillus combination no.8 (ADULT PROBIOTIC ORAL) Take by mouth as directed. Disp: Rfl: ASCORBIC ACID, VITAMIN C, ORAL Take by mouth as directed. Disp: Rfl: Cholecalciferol, Vitamin D3, 2,000 unit cap Take 1 capsule by mouth once daily. Disp: Rfl: amLODIPine (NORVASC) 5 mg tablet Take 1 tablet by mouth once daily. Disp: 30 tablet Rfl: 1 HYDROcodone-acetaminophen (NORCO) 5-325 mg per tablet Take 1 tablet by mouth every 6 hours as needed (severe pain). Disp: 20 tablet Rfl: 0 levETIRAcetam (KEPPRA) 750 mg tablet Take 750 mg by mouth twice daily. Disp: Rfl: aspirin, enteric coated (ASPIRIN, ENTERIC COATED) 81 mg EC tablet Take 81 mg by mouth once daily. Disp: Rfl: No current facility-administered medications for this visit. ALLERGIES: Patient has no known allergies. PERSONAL HISTORY: Social History Marital status: Spouse name: Years of education: Number of children: Social History Main Topics Smoking status: Former Smoker Packs/day: 1.00 Years: 30.00 Types: Cigarettes Smokeless tobacco: Never Used Alcohol use: No Drug use: No FAMILY HISTORY: FAMILY HISTORY Problem Relation Age of Onset - COPD Mother - COPD Father - Breast Cancer Sister - Cancer Brother REVIEW OF SYMPTOMS: The review of systems data was entered by the nurse and reviewed by me There are no exam notes on file for this visit. PHYSICAL EXAMINATION: General: The patient is 77 year old male, well nourished, well hydrated in no acute distress. The patient is oriented to time, place, and person. VITALS: Blood pressure 122/70, pulse 80, weight 81.6 kg (180 lb). Body mass index is 23.1 kg/m?. Other: Location: right upper lateral arm - 1.8cm lesion raised with central ulceration, suspicious for a basal cell carcinoma LABORATORY VALUES: As Noted RADIOLOGIC STUDIES: As Noted PROCEDURE: EXCISION OF SKIN LESION The risks, benefits and anticipated outcomes of the procedure, the risks and benefits of the alternatives to the procedure, and the roles and tasks of the personnel to be involved, were discussed with the patient, and the patient consents to the procedure and agrees to proceed. I verify that I personally obtained the patient's consent. The patient`s skin was prepped and draped in the usual fashion. A combination of Lidocaine and Marcaine was injected into the skin. An elliptical incision was made around the lesion and was removed in its entirety. The specimen measured 4 by 2 cm. This was sent to pathology. The skin was then closed with interrupted 4-0 nylon sutures. The patient tolerated the procedure well. Assessment IMPRESSION: SKIN LESION - RIGHT ARM PLAN: Ramses is instructed to remove the dressing in two days. If the dressing becomes soaked or had significant drainage, the dressing should be changed. If there is minor bleeding from this skin edge, the patient should hold pressure on the incision. If there is continued bleeding, the patient should contact our office immediately. The patient may may wash the wound with gentle soap and water after two days. The wound should not be immersed in a pool, bathtub, or even hot tub. Diagnoses: (L98.9) Skin lesion (primary encounter diagnosis) Return to Clinic: The patient is instructed to follow-up with me in 13 days. Henrique Reyes MD PROGRESS Observed: 05/30/2018 Status: COMPLETED Source: [facility] 3:25 PM [facility] REPOSIT[facility] HNO ID: [id number] Author: Glenda Watts RN Service: (none) Author Type: (none) Type: Progress Notes Filed: 06/03/2018 11:06 AM Note Text: UNIVERSAL PROTOCOL / SAFETY CHECKLIST Procedure to be performed: excision of right upper arm lesion Sign in Communication: Completed Time Out: Team Confirms the Correct Patient, Correct Procedure, Correct Site and Site Marking, Correct Position (if applicable), Prep and Dry Time (if applicable). Time: 1524 Affirmation of Time Out: YES Sign Out Discussion: Completed Glenda Watts RN CNOV Observed: 05/30/2018 Status: COMPLETED Source: [facility] 3:10 PM [facility] REPOSITORY Office Visit (GENSWS) DARSHANARAMSES Oquendo ([id number]) 1940 M Date Time Provider Department 05/30/18 3:10 PM HENRIQUE REYES GENSWS During your visit today, we recorded the following information about you: Pulse Blood pressure Weight 80/minute 122/70 81.6 kg Glenda Watts RN 06/03/2018 11:06 AM Signed UNIVERSAL PROTOCOL / SAFETY CHECKLIST Procedure to be performed: excision of right upper arm lesion Sign in Communication: Completed Time Out: Team Confirms the Correct Patient, Correct Procedure, Correct Site and Site Marking, Correct Position (if applicable), Prep and Dry Time (if applicable). Time: 1524 Affirmation of Time Out: YES Sign Out Discussion: Completed Glenda Watts RN 05/30/2018 3:36 PM Signed The following instructions are important for you related to your office visit today with the [facility]. Instructions After SKIN EXCISION-SUTURES You can remove the dressing in two days. If the dressing becomes soaked or had significant drainage, the dressing should be changed. If there is minor bleeding from this skin edge, you should hold pressure on the incision until the bleeding stops. If there is continued bleeding, you should contact our office immediately. You do not need to leave a dressing on the wound after two days. If the wound shows signs of redness, inflammation, or purulent drainage, you should contact our office immediately. You should keep the wound dry for the first two days. After that time, you may wash the wound with gentle soap and water. The wound should not be immersed in a pool, bathtub, or even hot tub. We prefer to check the incision and remove the stitches in our office when ready. Please make an appointment to return to our office in 2 weeks. Please do not remove the stitches yourself without approval from our office. If you note any additional difficulties, questions, or concerns, you should contact our office immediately @ [phone] and ask to be transferred to the General Surgery department. Henrique Reyes MD 06/03/2018 11:06 AM Signed HISTORY AND PHYSICAL Ramses S Large 1940 REFERRING PHYSICIAN: Kaiden Durham III, MD CHIEF COMPLAINT: skin lesion HPI: The patient is a 77 year old male. He has a single skin lesion on his right upper lateral arm. He notes it has been there for 2 months. It is suspicious for a basal cell carcinoma. 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) 01/31/2015 - Seizures (HCC) 2006 - Tobacco abuse 09/30/2014 - Vascular dementia 09/30/2014 - Vertebral compression fracture 11/04/2017 - Vitamin D deficiency 09/19/2017 OPERATIONS: PAST SURGICAL HISTORY Procedure Laterality Date - APPENDECTOMY remote - CATARACT SURGERY, COMPLEX 2011, 2012 IOLs - CHOLECYSTECTOMY 2005 laparoscopic - CYSTOSCOPY 2008 - PAST SURGICAL HISTORY OF 2007 prostate cancer external radiation rx - PAST SURGICAL HISTORY OF surgery for PUD complications Billroth II CURRENT MEDICATIONS: Current Outpatient Prescriptions: multivit-min/FA/lycopen/lutein (CENTRUM SILVER MEN ORAL) Take by mouth once daily. Disp: Rfl: lactobacillus combination no.8 (ADULT PROBIOTIC ORAL) Take by mouth as directed. Disp: Rfl: ASCORBIC ACID, VITAMIN C, ORAL Take by mouth as directed. Disp: Rfl: Cholecalciferol, Vitamin D3, 2,000 unit cap Take 1 capsule by mouth once daily. Disp: Rfl: amLODIPine (NORVASC) 5 mg tablet Take 1 tablet by mouth once daily. Disp: 30 tablet Rfl: 1 HYDROcodone-acetaminophen (NORCO) 5-325 mg per tablet Take 1 tablet by mouth every 6 hours as needed (severe pain). Disp: 20 tablet Rfl: 0 levETIRAcetam (KEPPRA) 750 mg tablet Take 750 mg by mouth twice daily. Disp: Rfl: aspirin, enteric coated (ASPIRIN, ENTERIC COATED) 81 mg EC tablet Take 81 mg by mouth once daily. Disp: Rfl: No current facility-administered medications for this visit. ALLERGIES: Patient has no known allergies. PERSONAL HISTORY: Social History Marital status: Spouse name: Years of education: Number of children: Social History Main Topics Smoking status: Former Smoker Packs/day: 1.00 Years: 30.00 Types: Cigarettes Smokeless tobacco: Never Used Alcohol use: No Drug use: No FAMILY HISTORY: FAMILY HISTORY Problem Relation Age of Onset - COPD Mother - COPD Father - Breast Cancer Sister - Cancer Brother REVIEW OF SYMPTOMS: The review of systems data was entered by the nurse and reviewed by me There are no exam notes on file for this visit. PHYSICAL EXAMINATION: General: The patient is 77 year old male, well nourished, well hydrated in no acute distress. The patient is oriented to time, place, and person. VITALS: Blood pressure 122/70, pulse 80, weight 81.6 kg (180 lb). Body mass index is 23.1 kg/m?. Other: Location: right upper lateral arm - 1.8cm lesion raised with central ulceration, suspicious for a basal cell carcinoma LABORATORY VALUES: As Noted RADIOLOGIC STUDIES: As Noted PROCEDURE: EXCISION OF SKIN LESION The risks, benefits and anticipated outcomes of the procedure, the risks and benefits of the alternatives to the procedure, and the roles and tasks of the personnel to be involved, were discussed with the patient, and the patient consents to the procedure and agrees to proceed. I verify that I personally obtained the patient's consent. The patient`s skin was prepped and draped in the usual fashion. A combination of Lidocaine and Marcaine was injected into the skin. An elliptical incision was made around the lesion and was removed in its entirety. The specimen measured 4 by 2 cm. This was sent to pathology. The skin was then closed with interrupted 4-0 nylon sutures. The patient tolerated the procedure well. Assessment IMPRESSION: SKIN LESION - RIGHT ARM PLAN: Ramses is instructed to remove the dressing in two days. If the dressing becomes soaked or had significant drainage, the dressing should be changed. If there is minor bleeding from this skin edge, the patient should hold pressure on the incision. If there is continued bleeding, the patient should contact our office immediately. The patient may may wash the wound with gentle soap and water after two days. The wound should not be immersed in a pool, bathtub, or even hot tub. Diagnoses: (L98.9) Skin lesion (primary encounter diagnosis) Return to Clinic: The patient is instructed to follow-up with me in 13 days. Henrique Reyes MD Referring Provider: KAIDEN DURHAM III [[id number]] Allergies As of Date: 05/30/2018 (No Known Allergies) Date Reviewed: 05/30/2018 Reviewed by: Henrique Reyes - Fully Assessed Reason for Visit: Removal Of Minor Skin Lesion - 1 [300] Primary Visit Diagnosis:Skin lesion [L98.9] Order(s):SURGICAL PATHOLOGY [[id number]] Order #: [id number] Prescriptions as of 05/30/2018 Sig: CENTRUM SILVER MEN ORAL Take by mouth once daily. ADULT PROBIOTIC ORAL Take by mouth as directed. ASCORBIC ACID (VITAMIN C) ORAL Take by mouth as directed. CHOLECALCIFEROL (VITAMIN D3) * Take 1 capsule by mouth once * AMLODIPINE 5 MG TABLET Take 1 tablet by mouth once d* HYDROCODONE 5 MG-ACETAMINOPHE* Take 1 tablet by mouth every * LEVETIRACETAM 750 MG TABLET Take 750 mg by mouth twice da* ASPIRIN 81 MG TABLET,DELAYED * Take 81 mg by mouth once rohit* Problem List As Of Date 05/30/2018 Noted Resolved Rectal mass [K62.9] INVALID FOR*09/30/2014 History of duodenal ulcer [Z87.19] INVALID FOR* Prostate cancer (HCC) [C61] INVALID FOR* Tobacco abuse [Z72.0] INVALID FOR*09/18/2017 History of CVA (cerebrovascular accident) [Z86.*INVALID FOR* Memory loss [R41.3] INVALID FOR* Vascular dementia [F01.50] INVALID FOR* Diarrhea following gastrointestinal surgery [R1*INVALID FOR*11/04/2017 Seizure disorder as sequela of cerebrovascular *INVALID FOR* Vitamin D deficiency [E55.9] INVALID FOR* More... Vertebral compression fracture (HCC) [OGK5965] INVALID FOR* Age-related osteoporosis with current pathologi*INVALID FOR* More... Hypertension, essential [I10] INVALID FOR* Other instructions from your clinician: The following instructions are important for you related to your office visit today with the [facility]. Instructions After SKIN EXCISION-SUTURES You can remove the dressing in two days. If the dressing becomes soaked or had significant drainage, the dressing should be changed. If there is minor bleeding from this skin edge, you should hold pressure on the incision until the bleeding stops. If there is continued bleeding, you should contact our office immediately. You do not need to leave a dressing on the wound after two days. If the wound shows signs of redness, inflammation, or purulent drainage, you should contact our office immediately. You should keep the wound dry for the first two days. After that time, you may wash the wound with gentle soap and water. The wound should not be immersed in a pool, bathtub, or even hot tub. We prefer to check the incision and remove the stitches in our office when ready. Please make an appointment to return to our office in 2 weeks. Please do not remove the stitches yourself without approval from our office. If you note any additional difficulties, questions, or concerns, you should contact our office immediately @ [phone] and ask to be transferred to the General Surgery department. Encounter Status:Closed by HENRIQUE REYES MD on 06/03/18 SURGICAL PATHOLOGY Observed: 05/30/2018 Status: F Source: STOW 12:00 AM [facility] REPOSITORY Specimen originated from [facility] Specimen #: [id number] Submitting Physician: HENRIQUE REYES ([id number]) FINAL DIAGNOSIS A. Skin, right upper arm, excision - Invasive well-differentiated squamous cell carcinoma, keratoacanthoma-type. - Margins negative for tumor. SDB/MONIKA/robin 06/02/2018 Maynor Rousseau M.D. (Electronic Signature) SPECIMEN SUBMITTED A: SKIN, RIGHT UPPER ARM LESION, EXCISION CLINICAL DATA SKIN LESION RIGHT UPPER ARM SUTURE LAM THE SUPERIOR MARGIN GROSS DESCRIPTION A. Received in formalin is an elliptical segment of skin measuring 2.0 x 1.4 x 1.2 cm. A suture lam the superior margin, and is redesignated to the 12:00 margin. The skin surface demonstrates an irregular brown-pink slightly elevated area measuring 1.0 x 1.1 cm, and extends to the 12:00 margin. The 6:00 margin is inked orange, the 12:00 margin is inked blue, and the deep margin is inked black. The specimen is sectioned and totally submitted as follows: A1 3:00 tip, A2 9:00 tip, A3 body. Gross examination performed at [facility], [address] [place], [place] [id number] 05/31/2018 12:45:55 AM Date of Report: 06/02/2018 Date of Procedure: 05/30/2018 Date of Receipt: 05/30/2018 Submitted by: HENRIQUE REYES ([id number]) Location: [facility]OO Diagnostic interpretation performed at [facility], [address] [place] [address]. PROGRESS Observed: 05/23/2018 Status: COMPLETED Source: STOW 11:21 AM [facility] REPOSITORY HNO ID: [id number] Author: Sue Oquendo (James) Jay Service: (none) Author Type: Nurse Practitioner Type: Progress Notes Filed: 05/23/2018 1:16 PM Note Text: Patient presents with: Recheck: blood pressure Ramses Gilliland is a 77 year old male who presents in follow up of HTN and was last seen 2 weeks ago. Started on Amlodipine at that time. H/o Dementia, brought in by to recheck BP. HTN: Mr. Gilliland indicates that he is feeling well and denies any symptoms referable to elevated blood pressure. Specifically denies headache, chest pain, palpitations, dyspnea and peripheral edema. Patient denies any side effects of his medication(s) and is compliant with their regimen. He does check BP's away from this office with average BP's in the 140-160 SBP range. Ramses denies regular aerobic exercise. He watches his diet for sodium, low fat and low cholesterol some of the time. Last 3 Encounter BP Readings: Date: BP: 05/23/2018 152/98 05/02/2018 152/84 11/04/2017 209/126 Past Medical, Surgical, Family and Social Histories reviewed and updated today in the History tab of [facility]. Current Medications and allergies reviewed. 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) 01/31/2015 - Seizures (HCC) 2006 - Tobacco abuse 09/30/2014 - Vascular dementia 09/30/2014 - Vertebral compression fracture 11/04/2017 - Vitamin D deficiency 09/19/2017 PAST SURGICAL HISTORY Procedure Laterality Date - APPENDECTOMY remote - CATARACT SURGERY, COMPLEX 2011, 2012 IOLs - CHOLECYSTECTOMY 2005 laparoscopic - CYSTOSCOPY 2009 - PAST SURGICAL HISTORY OF 2007 prostate cancer external radiation rx - PAST SURGICAL HISTORY OF surgery for PUD complications Billroth II ACTIVE PROBLEM LIST History of Duodenal Ulcer Prostate cancer (HCC) History of Cva (Cerebrovascular Accident) Memory Loss Vascular Dementia Seizure Disorder As Sequela of Cerebrovascular Accident (Hcc) Vitamin D Deficiency Vertebral Compression Fracture Age-Related Osteoporosis With Current Pathological Fracture Hypertension, Essential PHYSICAL EXAM: BP 126/78 (BP Site: Left Arm, BP Position: Sitting, BP Cuff Size: Large Adult) Pulse 80 Temp 36.3 ?C (97.3 ?F) (Tympanic) Resp 18 Wt 82.6 kg (182 lb) SpO2 94% BMI 23.36 kg/m? BP w/Orthostatic Vitals Date and Time Orthostatic BP Orthostatic Pulse BP Pulse BP Position BP Site BP Cuff Size 05/23/18 1314 -- -- 126/78 -- Sitting Left Arm Large Adult 05/23/18 1313 -- -- 130/80 -- Sitting Right Arm Large Adult 05/23/18 1101 -- -- 152/98 80 Sitting Right Arm Regular Adult Peak Flow Date and Time PF Resp 05/23/18 1101 -- 18 General appearance: Alert, cooperative, pleasant, in no acute distress Head: Normocephalic, atraumatic Eyes: conjunctiva/corneas normal Oropharynx: moist without lesions Neck: supple, no adenopathy and thyroid normal size, non-tender, without nodularity Heart: regular rate and rhythm, without murmur Lungs: clear to auscultation, without rales or wheeze, good air exchange Ext: no edema in LE bilaterally SKin: right upper arm-8 mm nodular raised lesion with central ulceration concerning for BCC ASSESSMENT/PLAN: 1. Hypertension, essential - ICD9: 401.9, ICD10: I10 (primary diagnosis) - good control - improved - Continue current medication(s) - Encouraged dietary sodium restriction/DASH diet - Recommend home blood pressure monitoring, to bring results in on next visit - Follow up in 1 month for BP recheck. - Goal of BP <130/80 2. Encounter for screening fecal occult blood testing - ICD9: V76.51, ICD10: Z12.11 - FECAL OCCULT BLOOD TEST 3. Skin lesion - ICD9: 709.9, ICD10: L98.9 - Lesion concerning for BCC - CONSULT TO GENERAL SURGERY Sue Thompson, MSN RESERVATIONS CLERK.JOSE ANGEL CNOV Observed: 05/23/2018 Status: COMPLETED Source: STOW 11:00 AM [facility] REPOSITORY Office Visit (FAMPWS) RAMSES GILLILAND ([id number]) 1940 M Date Time Provider Department 05/23/18 11:00 AM SUE THOMPSON (BEHAVIORAL HEALTH ASSOCIATE) FAMPWS During your visit today, we recorded the following information about you: Temperature Pulse Respiration Blood pressure 97.3 degrees 80/minute 18/minute 126/78 Weight 82.6 kg CATRACHO Orta RESERVATIONS CLERK.JOSE ANGEL 05/23/2018 1:16 PM Signed Patient presents with: Recheck: blood pressure Ramses Gilliland is a 77 year old male who presents in follow up of HTN and was last seen 2 weeks ago. Started on Amlodipine at that time. H/o Dementia, brought in by to recheck BP. HTN: Mr. Gilliland indicates that he is feeling well and denies any symptoms referable to elevated blood pressure. Specifically denies headache, chest pain, palpitations, dyspnea and peripheral edema. Patient denies any side effects of his medication(s) and is compliant with their regimen. He does check BP's away from this office with average BP's in the 140-160 SBP range. Ramses denies regular aerobic exercise. He watches his diet for sodium, low fat and low cholesterol some of the time. Last 3 Encounter BP Readings: Date: BP: 05/23/2018 152/98 05/02/2018 152/84 11/04/2017 209/126 Past Medical, Surgical, Family and Social Histories reviewed and updated today in the History tab of [facility]. Current Medications and allergies reviewed. 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) 01/31/2015 - Seizures (HCC) 2006 - Tobacco abuse 09/30/2014 - Vascular dementia 09/30/2014 - Vertebral compression fracture 11/04/2017 - Vitamin D deficiency 09/19/2017 PAST SURGICAL HISTORY Procedure Laterality Date - APPENDECTOMY remote - CATARACT SURGERY, COMPLEX 2011, 2012 IOLs - CHOLECYSTECTOMY 2004 laparoscopic - CYSTOSCOPY 2008 - PAST SURGICAL HISTORY OF 2007 prostate cancer external radiation rx - PAST SURGICAL HISTORY OF surgery for PUD complications Billroth II ACTIVE PROBLEM LIST History of Duodenal Ulcer Prostate cancer (HCC) History of Cva (Cerebrovascular Accident) Memory Loss Vascular Dementia Seizure Disorder As Sequela of Cerebrovascular Accident (Hcc) Vitamin D Deficiency Vertebral Compression Fracture Age-Related Osteoporosis With Current Pathological Fracture Hypertension, Essential PHYSICAL EXAM: BP 126/78 (BP Site: Left Arm, BP Position: Sitting, BP Cuff Size: Large Adult) Pulse 80 Temp 36.3 ?C (97.3 ?F) (Tympanic) Resp 18 Wt 82.6 kg (182 lb) SpO2 94% BMI 23.36 kg/m? BP w/Orthostatic Vitals Date and Time Orthostatic BP Orthostatic Pulse BP Pulse BP Position BP Site BP Cuff Size 05/23/18 1314 -- -- 126/78 -- Sitting Left Arm Large Adult 05/23/18 1313 -- -- 130/80 -- Sitting Right Arm Large Adult 05/23/18 1101 -- -- 152/98 80 Sitting Right Arm Regular Adult Peak Flow Date and Time PF Resp 05/23/18 1101 -- 18 General appearance: Alert, cooperative, pleasant, in no acute distress Head: Normocephalic, atraumatic Eyes: conjunctiva/corneas normal Oropharynx: moist without lesions Neck: supple, no adenopathy and thyroid normal size, non-tender, without nodularity Heart: regular rate and rhythm, without murmur Lungs: clear to auscultation, without rales or wheeze, good air exchange Ext: no edema in LE bilaterally SKin: right upper arm-8 mm nodular raised lesion with central ulceration concerning for BCC ASSESSMENT/PLAN: 1. Hypertension, essential - ICD9: 401.9, ICD10: I10 (primary diagnosis) - good control - improved - Continue current medication(s) - Encouraged dietary sodium restriction/DASH diet - Recommend home blood pressure monitoring, to bring results in on next visit - Follow up in 1 month for BP recheck. - Goal of BP <130/80 2. Encounter for screening fecal occult blood testing - ICD9: V76.51, ICD10: Z12.11 - FECAL OCCULT BLOOD TEST 3. Skin lesion - ICD9: 709.9, ICD10: L98.9 - Lesion concerning for BCC - CONSULT TO GENERAL SURGERY Sue Thompson, MSN RESERVATIONS CLERK.ASTROBIOLOGIST Referring Provider: SUE THOMPSON (BEHAVIORAL HEALTH ASSOCIATE) [[id number]] Allergies As of Date: 05/23/2018 (No Known Allergies) Date Reviewed: 05/23/2018 Reviewed by: Fatmata Guerin LPN - Fully Assessed Reason for Visit: Recheck [92] Cmt: blood pressure Primary Visit Diagnosis:Hypertension, essential [I10] Other Visit Diagnoses:Encounter for screening fecal occult blood testing [Z12.11] Skin lesion [L98.9] Order(s):FECAL OCCULT BLOOD TEST [SQIFOBT] Order #: [id number] FUTURE CONSULT TO GENERAL SURGERY [9011] Order #: [id number]: 1 Prescriptions as of 05/23/2018 Sig: CENTRUM SILVER MEN ORAL Take by mouth once daily. ADULT PROBIOTIC ORAL Take by mouth as directed. ASCORBIC ACID (VITAMIN C) ORAL Take by mouth as directed. CHOLECALCIFEROL (VITAMIN D3) * Take 1 capsule by mouth once * AMLODIPINE 5 MG TABLET Take 1 tablet by mouth once d* HYDROCODONE 5 MG-ACETAMINOPHE* Take 1 tablet by mouth every * LEVETIRACETAM 750 MG TABLET Take 750 mg by mouth twice da* ASPIRIN 81 MG TABLET,DELAYED * Take 81 mg by mouth once rohit* Problem List As Of Date 05/23/2018 Noted Resolved Rectal mass [K62.9] INVALID FOR*09/30/2014 History of duodenal ulcer [Z87.19] INVALID FOR* Prostate cancer (HCC) [C61] INVALID FOR* Tobacco abuse [Z72.0] INVALID FOR*09/18/2017 History of CVA (cerebrovascular accident) [Z86.*INVALID FOR* Memory loss [R41.3] INVALID FOR* Vascular dementia [F01.50] INVALID FOR* Diarrhea following gastrointestinal surgery [R1*INVALID FOR*11/04/2017 Seizure disorder as sequela of cerebrovascular *INVALID FOR* Vitamin D deficiency [E55.9] INVALID FOR* More... Vertebral compression fracture (HCC) [OQM3506] INVALID FOR* Age-related osteoporosis with current pathologi*INVALID FOR* More... Hypertension, essential [I10] INVALID FOR* Follow-up and Disposition History Recorded Encounter Status:Closed by SUE THOMPSON ASTROBIOLOGIST on 05/23/18 CBC AND DIFFERENTIAL Collected: 05/02/2018 Status: F Source: STOW 3:13 PM [facility] REPOSITORY TYPE CODE TESTS RESULT OUT OF REFERENCE UNITS RANGE LAB WBC 3.70-11.00 k/uL WBC 5.68 LAB RBC 4.20-6.00 m/uL RBC 4.57 LAB HGB 13.0-17.0 g/dL Hemoglobin 14.3 LAB HCT 39.0-51.0 % Hematocrit 44.3 LAB MCV 80.0-100.0 fL MCV 96.9 LAB MCH 26.0-34.0 pG MCH 31.3 LAB MCHC 30.5-36.0 g/dL MCHC 32.3 LAB RDWCV 11.5-15.0 % RDW-CV 13.2 LAB PLTCT 150-400 k/uL Platelet Count 223 LAB MPV 9.0-12.7 fL MPV 12.4 LAB ANEUT % Neut% 56.8 LAB AANEUT 1.45-7.50 k/uL Abs Neut 3.20 LAB ALYMP % Lymph% 26.2 LAB AALYMP 1.00-4.00 k/uL Abs Lymph 1.49 LAB AMONO % Lander% 13.9 LAB AAMONO <0.87 k/uL Abs Lander 0.79 LAB AEOS % Eosin% 2.6 LAB AAEOS <0.46 k/uL Abs Eosin 0.15 LAB ABASO % Baso% 0.5 LAB AABASO <0.11 k/uL Abs Baso 0.03 LAB AUNRBC 0 /100 WBC NRBCs 0.0 LAB ABNRBC <0.01 k/uL Absolute nRBC <0.01 LAB DTYP DTYPE Auto Diff Performed By: #### CBCDIF, BMP, VITD #### [facility] [address] [place] [id number] BASIC METABOLIC PANL Collected: 05/02/2018 Status: F Source: STOW 3:13 PM [facility] REPOSITORY TYPE CODE TESTS RESULT OUT OF REFERENCE UNITS RANGE LAB GLU 74-99 mg/dL Glucose 90 Result Comment: The [place] Diabetes [employer] (ADA) provides guidance for cutoff values for fasting glucose and random glucose. The ADA defines fasting as no caloric intake for at least 8 hours. Fas ting plasma glucose results between 100 to 125 mg/dL indicate increased risk for diabetes (prediabetes). Fasting plasma glucose results greater than or equal to 126 mg/dL meet the criteria for diagnosis of diabetes. In the absence of unequivocal hyperglycemia, results should be confirmed by repeat testing. In a patient with classic symptoms of hyperglycemia or hyperglycemic crisis, random plasma glucose results greater than or equal to 200 mg/dL meet the criteria for diagnosis of diabetes. Reference: Standards of Medical Care in Diabetes 2016, [place] [employer] Association. Diabetes Care. 2016.39(Suppl 1). LAB BUN 9-24 mg/dL BUN 13 LAB CRET 0.73-1.22 mg/dL Creatinine 0.78 LAB NA 136-144 mmol/L Sodium High 145 LAB K 3.7-5.1 mmol/L Potassium 4.3 LAB CL 97-105 mmol/L Chloride High 106 LAB CO2 22-30 mmol/L CO2 27 LAB AGAP 9-18 mmol/L Anion Gap 12 LAB CA 8.5-10.2 mg/dL Calcium, Total 9.4 LAB GFRAA eGFR- Amer. >60 LAB GFRNAA . eGFR-All Other Races >60 Result Comment: eGFR (Estimated GFR) Units of measure: mL/min/1.73 meters squared eGFR is derived from the reexpressed MDRD Study equation using the following parameters: serum creatinine, age, gender and race. The creatinine assay has been calibrated to be traceable to IDMS. An eGFR <60 mL/min/1.73m2 for >3 months is consistent with chronic kidney disease. Refer to KDOQI guidelines for clinical interpretation. In patients with unstable renal function, e.g. those with acute kidney injury, the eGFR may not accurately reflect actual GFR. Performed By: #### CBCDIF, BMP, VITD #### [facility] [address] [place], [place] [address] VITAMIN D 25 HYDROXY Collected: 05/02/2018 Status: F Source: STOW 3:13 PM [facility] REPOSITORY TYPE CODE TESTS RESULT OUT OF REFERENCE UNITS RANGE LAB VITD 31.0-80.0 ng/mL Vitamin D 25 70.7 Hydroxy Result Comment: Classification of 25 [place] Vitamin D status: Insufficiency/Moderate Deficiency: < or = 30 ng/mL Sufficiency/Optimal Levels: 31 to 80 ng/mL Toxicity: > 100 ng/mL Test performed by chemiluminescent immunoassay. Performed By: #### CBCDIF, BMP, VITD #### [facility] [address] [place], [place] [address] ECG COMPLETE W Observed: 05/02/2018 Status: F Source: STOW INTERPRETATION 2:45 PM [facility] REPOSITORY NAME : RAMSES GILLILAND PID : [id number] : 1940 Gender : Male Race : ORD : [id number] Procedure Date : May 02 2018 14:45:04 Edit Date : May 07 2018 12:45:48 Diagnosis:SINUS RHYTHM WITH OCCASIONAL PREMATURE VENTRICULAR COMPLEXES OTHERWISE NORMAL ECG Confirmed by RUPERTO CHEATHAM D.O. ([id number]) on 05/07/2018 12:45:41 PM Ventricular Rate : 67 BPM Atrial Rate : 67 BPM P-R Interval : 180 ms QRS Duration : 98 ms Q-T Interval : 418 ms QTC Calculation(Bezet) : 441 ms P Corry : 78 degrees R Corry : 54 degrees T Corry : 72 degrees Test Reason : Location : 185 : [facility] Overread By : RUPERTO CHEATHAM D.O. Edited By : RUPERTO CHEATHAM D.O. Referred By : SUE THOMPSON Acquired by : GEETA GUERIN, PROGRESS Observed: 05/02/2018 Status: COMPLETED Source: STOW 2:08 PM [facility] REPOSITORY HNO ID: [id number] Author: Sue Oquendo (Entry Level Civil Engineer) Jay Service: (none) Author Type: Nurse Practitioner Type: Progress Notes Filed: 05/02/2018 5:33 PM Note Text: Patient presents with: Recheck: blood pressure Ramses Gilliland is a 77 year old male who presents in follow up of HTN and was last seen 6 months ago. BP was elevated at last OV. Previously on antihypertensive medication-thinks amlodipine. present at visit, does most of talking for patient due to Dementia. Never took high dose of Vit D, never started Fosamax for documented Osteoporosis. Taking 2000 IU Vit D instead. HTN: Mr. Gilliland indicates that he is feeling well and denies any symptoms referable to elevated blood pressure. Specifically denies headache, chest pain, palpitations, and peripheral edema. He does check BP's away from this office with average BP's in the 140's range. Ramses gets minimal exercise, still mows own lawn. He watches his diet for sodium, low fat and low cholesterol generally not very much. Last 3 Encounter BP Readings: Date: BP: 05/02/2018 140/82 11/04/2017 209/126 09/18/2017 130/80 * He does note JACKSON, shaving wears him out, showering wears him out, must rest in between activities. states he still mows the lawn with riding mower, when questioned further reports noted SOB when up walking around the house. Known COPD. Denies cough. * Seizure Disorder, on Keppra and follows with Neurology * Vascular Dementia-stable, Past Medical, Surgical, Family and Social Histories reviewed and updated today in the History tab of [email or web address]. Current Medications and allergies reviewed. 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) 01/31/2015 - Seizures (HCC) 2006 - Tobacco abuse 09/30/2014 - Vascular dementia 09/30/2014 - Vertebral compression fracture (HCC) 11/04/2017 - Vitamin D deficiency 09/19/2017 PAST SURGICAL HISTORY Procedure Laterality Date - APPENDECTOMY remote - CATARACT SURGERY, COMPLEX 2011, 2012 IOLs - CHOLECYSTECTOMY 2005 laparoscopic - CYSTOSCOPY 2008 - PAST SURGICAL HISTORY OF 2007 prostate cancer external radiation rx - PAST SURGICAL HISTORY OF surgery for PUD complications Billroth II ACTIVE PROBLEM LIST History of Duodenal Ulcer Prostate cancer (HCC) History of Cva (Cerebrovascular Accident) Memory Loss Vascular Dementia 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 Walking Pulse Ox=92-94%, Heart rate 71 at rest and 90's with ambulation General appearance: Alert, cooperative, pleasant, in no acute distress, unshaven Head: Normocephalic, atraumatic Eyes: conjunctiva/corneas normal, PERRL, EOMI Neck: supple, no adenopathy, thyroid normal size, non-tender, without nodularity and no JVD Heart: regular with occasional ectopy, no murmurs, rubs, clicks, or gallops Lungs: clear to auscultation, without rales or wheeze, diminished breath sounds bilateral basis, pulse ox 95% Abdomen:soft, nondistended, nontender, no hepatosplenomegaly or masses Ext: no edema in LE bilaterally, good distal pulses ASSESSMENT/PLAN: 1. Hypertension, essential - ICD9: 401.9, ICD10: I10 (primary diagnosis) - suboptimal control - Begin amlodipine (Norvasc) - Check BMP - Encouraged dietary sodium restriction/DASH diet - Recommend home blood pressure monitoring, to bring results in on next visit - Recheck in 3 weeks, sooner should new symptoms or problems arise. - Goal of BP <130/80 - AMLODIPINE 5 MG TABLET - ECG COMPLETE W INTERPRETATION - BASIC METABOLIC PNL 2. Vitamin D deficiency - ICD9: 268.9, ICD10: E55.9 - CHOLECALCIFEROL (VITAMIN D3) 2,000 UNIT CAPSULE 3. JACKSON (dyspnea on exertion) - ICD9: 786.09, ICD10: R06.09 - Reviewed with Dr. Durham, ordering echo, EKG, occasional PVC, otherwise NSR - ECG COMPLETE W INTERPRETATION - ECHO - BASIC METABOLIC PNL - CBC + DIFF 4. Vascular dementia without behavioral disturbance - ICD9: 290.40, ICD10: F01.50 - Stable 5. 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) - ICD9: 438.89, 345.90, ICD10: I69.398, G40.909 - Stable and follows with Neurology Sue Thompson, MSN RESERVATIONS CLERK.JOSE ANGEL ENRIQUEZ Observed: 05/02/2018 Status: COMPLETED Source: STOW 1:40 PM [facility] REPOSITORY Office Visit (FAMPWS) RAMSES GILLILAND ([id number]) 1940 M Date Time Provider Department 05/02/18 1:40 PM SUE THOMPSON (BEHAVIORAL HEALTH ASSOCIATE) FAMPWS During your visit today, we recorded the following information about you: Temperature Pulse Respiration Blood pressure 97.4 degrees 72/minute 16/minute 152/84 Weight 83 kg CATRACHO Orta RESERVATIONS CLERK.JOSE ANGEL 05/02/2018 5:33 PM Signed Patient presents with: Recheck: blood pressure Ramses Gilliland is a 77 year old male who presents in follow up of HTN and was last seen 6 months ago. BP was elevated at last OV. Previously on antihypertensive medication-thinks amlodipine. present at visit, does most of talking for patient due to Dementia. Never took high dose of Vit D, never started Fosamax for documented Osteoporosis. Taking 2000 IU Vit D instead. HTN: Mr. Gilliland indicates that he is feeling well and denies any symptoms referable to elevated blood pressure. Specifically denies headache, chest pain, palpitations, and peripheral edema. He does check BP's away from this office with average BP's in the 140's range. Ramses gets minimal exercise, still mows own lawn. He watches his diet for sodium, low fat and low cholesterol generally not very much. Last 3 Encounter BP Readings: Date: BP: 05/02/2018 140/82 11/04/2017 209/126 09/18/2017 130/80 * He does note JACKSON, shaving wears him out, showering wears him out, must rest in between activities. states he still mows the lawn with riding mower, when questioned further reports noted SOB when up walking around the house. Known COPD. Denies cough. * Seizure Disorder, on Keppra and follows with Neurology * Vascular Dementia-stable, Past Medical, Surgical, Family and Social Histories reviewed and updated today in the History tab of [facility]. Current Medications and allergies reviewed. PAST MEDICAL HISTORY Diagnosis Date - Age-related osteoporosis with current pathological fracture 11/04/2017 Dx 09/2017 and started on fosamax - Cataracts, bilateral - Diarrhea following gastrointestinal surgery 09/30/2014 - Heart murmur - History of CVA (cerebrovascular accident) 09/30/2014 - Other osteoporosis without current pathological fracture 10/02/2017 Dx 09/2017 and started on fosamax - Prostate cancer (HCC) 2008 44 radiation treatments - 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) 01/31/2015 - Seizures (HCC) 2006 - Tobacco abuse 09/30/2014 - Vascular dementia 09/30/2014 - Vertebral compression fracture (HCC) 11/04/2017 - Vitamin D deficiency 09/19/2017 PAST SURGICAL HISTORY Procedure Laterality Date - APPENDECTOMY remote - CATARACT SURGERY, COMPLEX 2011, 2012 IOLs - CHOLECYSTECTOMY 2004 laparoscopic - CYSTOSCOPY 2008 - PAST SURGICAL HISTORY OF 2007 prostate cancer external radiation rx - PAST SURGICAL HISTORY OF surgery for PUD complications Billroth II ACTIVE PROBLEM LIST History of Duodenal Ulcer Prostate cancer (HCC) History of Cva (Cerebrovascular Accident) Memory Loss Vascular Dementia 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 Walking Pulse Ox=92-94%, Heart rate 71 at rest and 90's with ambulation General appearance: Alert, cooperative, pleasant, in no acute distress, unshaven Head: Normocephalic, atraumatic Eyes: conjunctiva/corneas normal, PERRL, EOMI Neck: supple, no adenopathy, thyroid normal size, non-tender, without nodularity and no JVD Heart: regular with occasional ectopy, no murmurs, rubs, clicks, or gallops Lungs: clear to auscultation, without rales or wheeze, diminished breath sounds bilateral basis, pulse ox 95% Abdomen:soft, nondistended, nontender, no hepatosplenomegaly or masses Ext: no edema in LE bilaterally, good distal pulses ASSESSMENT/PLAN: 1. Hypertension, essential - ICD9: 401.9, ICD10: I10 (primary diagnosis) - suboptimal control - Begin amlodipine (Norvasc) - Check BMP - Encouraged dietary sodium restriction/DASH diet - Recommend home blood pressure monitoring, to bring results in on next visit - Recheck in 3 weeks, sooner should new symptoms or problems arise. - Goal of BP <130/80 - AMLODIPINE 5 MG TABLET - ECG COMPLETE W INTERPRETATION - BASIC METABOLIC PNL 2. Vitamin D deficiency - ICD9: 268.9, ICD10: E55.9 - CHOLECALCIFEROL (VITAMIN D3) 2,000 UNIT CAPSULE 3. JACKSON (dyspnea on exertion) - ICD9: 786.09, ICD10: R06.09 - Reviewed with Dr. Durham, ordering echo, EKG, occasional PVC, otherwise NSR - ECG COMPLETE W INTERPRETATION - ECHO - BASIC METABOLIC PNL - CBC + DIFF 4. Vascular dementia without behavioral disturbance - ICD9: 290.40, ICD10: F01.50 - Stable 5. 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) - ICD9: 438.89, 345.90, ICD10: I69.398, G40.909 - Stable and follows with Neurology Sue Thompson, MSN RESERVATIONS CLERK.ASTROBIOLOGIST Referring Provider: SELF [200] Allergies As of Date: 05/02/2018 (No Known Allergies) Date Reviewed: 05/02/2018 Reviewed by: Fatmata Guerin LPN - Fully Assessed Reason for Visit: Recheck [92] Cmt: blood pressure Primary Visit Diagnosis:Hypertension, essential [I10] Other Visit Diagnoses:Vitamin D deficiency [E55.9] JACKSON (dyspnea on exertion) [R06.09] Vascular dementia without behavioral disturbance [F01.50] 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 ADULT PROBIOTIC ORAL Take by mouth as directed. ASCORBIC ACID (VITAMIN C) ORAL Take by mouth as directed. LEVETIRACETAM 750 MG TABLET Take 750 mg by mouth twice da* ASPIRIN 81 MG TABLET,DELAYED * Take 81 mg by mouth once rohit* CHOLECALCIFEROL (VITAMIN D3) * Take 1 capsule by mouth once * AMLODIPINE 5 MG TABLET Take 1 tablet by mouth once d* HYDROCODONE 5 MG-ACETAMINOPHE* Take 1 tablet by mouth every * Medication notes this encounter ALENDRONATE 70 MG TABLET >> Fatmata Guerin LPN 05/02/2018 1:53 PM >> FATMATA GUERIN LPN SatMay 02, 2018 1:53 PM Not taking. Fatmata Guerin LPN >> CATRACHO Orta RESERVATIONS CLERK.ASTROBIOLOGIST 05/02/2018 2:06 PM Never started DOCUSATE SODIUM 100 MG CAPSULE >> Fatmata Guerin LPN 05/02/2018 1:52 PM >> FATMATA GUERIN LPN SatMay 02, 2018 1:52 PM Not taking. Fatmata Guerin LPN CHOLECALCIFEROL (VITAMIN D3) 50,000 UNIT CAPSULE >> Sue Thompson MSN RESERVATIONS CLERK.ASTROBIOLOGIST 05/02/2018 2:07 PM Never started taking, taking 2000 IU MECLIZINE 12.5 MG TABLET >> Fatmata Guerin LPN 05/02/2018 1:52 PM >> FATMATA GUERIN LPN SatMay 02, 2018 1:52 PM Not taking. Fatmata Guerin LPN Problem List As Of Date 05/02/2018 Noted Resolved Rectal mass [K62.9] INVALID FOR*09/30/2014 History of duodenal ulcer [Z87.19] INVALID FOR* Prostate cancer (HCC) [C61] INVALID FOR* Tobacco abuse [Z72.0] INVALID FOR*09/18/2017 History of CVA (cerebrovascular accident) [Z86.*INVALID FOR* Memory loss [R41.3] INVALID FOR* Vascular dementia [F01.50] INVALID FOR* Diarrhea following gastrointestinal surgery [R1*INVALID FOR*11/04/2017 Seizure disorder as sequela of cerebrovascular *INVALID FOR* Vitamin D deficiency [E55.9] INVALID FOR* More... Vertebral compression fracture (HCC) [M48.50XA] INVALID FOR* Age-related osteoporosis with current pathologi*INVALID FOR* More... Hypertension, essential [I10] INVALID FOR* Prescriptions ordered this encounter Disp Refills Start End CHOLECALCIFEROL (VITAMIN D3) 2,000 U* 05/02/2018 Class: Med Update Route: ORAL Sig: Take 1 capsule by mouth once daily. AMLODIPINE 5 MG TABLET 30 t* 1 05/02/2018 Route: ORAL Sig: Take 1 tablet by mouth once daily. Medications Discontinued During This Encounter meclizine (ANTIVERT) 12.5 mg tab 30 t* 2 07/09/2016 05/02/2018 Route: ORAL Sig: Take 1 tablet by mouth three times daily as needed (dizziness). Disc: Course of therapy completed docusate sodium (COLACE) 100 mg caps* 0 10/28/2017 05/02/2018 Class: Historical Med Route: ORAL Sig: Take 100 mg by mouth once daily. Disc: Course of therapy completed alendronate (FOSAMAX) 70 mg tablet 12 t* 3 12/31/2017 05/02/2018 Route: ORAL Sig: Take 1 tablet by mouth once each week. Take with a full glass of water, on an empty stomach; do NOT lie down for 30minutes. Disc: Discontinued by Patient cholecalciferol, Vitamin D3, (VITAMI* 4 ca* 5 10/02/2017 05/02/2018 Route: ORAL Sig: Take 1 capsule by mouth once each week. Disc: Discontinued by Patient Disposition: Return in about 3 weeks (around 05/23/2018). Follow-up and Disposition History Recorded Encounter Status:Closed by SUE THOMPSON ASTROBIOLOGIST on 05/02/18 PROGRESS Observed: 04/29/2018 Status: COMPLETED Source: [place] 3:41 PM [facility] REPOSITORY HNO ID: [id number] Author: Radha Werner) Rodriguez Service: (none) Author Type: Curing Press Operator Type: Progress Notes Filed: 04/29/2018 3:42 PM Note Text: The patient has been identified by name and date of : YES I have scheduled the patient for an appointment on 05/02/2018. The patient will report to the lab prior to the visit. I have pended the following lab orders: None PHMA Documentation 04/29/2018 Opts out of [facility] No Appointments Scheduled Scheduled CP Appt BP > 139/89 Other Appt Appt Date 05/02/2018 Radha Frias MA PROGRESS Observed: 04/29/2018 Status: COMPLETED Source: [place] 3:17 PM [facility] REPOSITORY HNO ID: [id number] Author: Radha Frias Service: (none) Author Type: Curing Press Operator Type: Progress Notes Filed: 04/29/2018 3:42 PM Note Text: I have attempted to contact this patient by phone to return their call, schedule an appointment, discuss lab results, etc. Left message to call back. PROGRESS Observed: 04/15/2018 Status: COMPLETED Source: [place] 1:08 PM [facility] REPOSITORY HNO ID: [id number] Author: Radha Frias Service: (none) Author Type: Curing Press Operator Type: Progress Notes Filed: 04/29/2018 3:42 PM Note Text: PHMA TEAMLET DOCUMENTATION Provider Action/FYI: Patient needs appointment, PSR Action/FYI: please schedule patient's appointment Teamlet has identified patient by name and date of . Team: *Dr. Erika Durham III, MD, SILVIA Price, Radha Frias MA, Neena Yates LPN, Lorraine Antonio CMA, Radhika Carroll PSR, ? Last Office Visit:11/04/2017 ? Next Office Visit: Visit date not found ? Last BP/Labs: Blood Pressure: Last 3 Encounter BP Readings: Date: BP: 11/04/2017 209/126 09/18/2017 130/80 03/21/2016 138/82 Lipids: Cholesterol, Total (mg/dL) Date Value 01/31/2015 210 09/30/2014 207 HDL Cholesterol (mg/dL) Date Value 01/31/2015 36 09/30/2014 42 LDL Cholesterol (mg/dL) Date Value 01/31/2015 135 09/30/2014 124 Triglyceride (mg/dL) Date Value 01/31/2015 193 09/30/2014 205 HGB A1C: No results found for: HBA1C TSH: No results found for: TSH) Care Gap: HTN - Last BP NOT under 140/90 Plan: ? Confirm PCP / Status ? Type of appointment needed: Follow-up ? Consultation Appointments: No patient outreach needed at this time ? Radha Frias MA CNPTOUTREACH Observed: 04/15/2018 Status: COMPLETED Source: [place] 12:00 AM [facility] REPOSITORY Patient Outreach (FAMPWS) RAMSES GILL[place]AND ([id number]) 1940 M Date Time Provider Department 04/15/18 RADHA FRIAS (KAREN) FAMPWS During your visit today, we recorded the following information about you: Radha Frias MA 04/29/2018 3:42 PM Signed PHMA TEAMLET DOCUMENTATION Provider Action/FYI: Patient needs appointment, PSR Action/FYI: please schedule patient's appointment Teamlet has identified patient by name and date of . Team: *Dr. Erika Durham III, MD, SILVIA Price, Radha Frias MA, Neena Yates LPN, Lorraine Antonio CMA, Radhika Carroll PSR, ? Last Office Visit:11/04/2017 ? Next Office Visit: Visit date not found ? Last BP/Labs: Blood Pressure: Last 3 Encounter BP Readings: Date: BP: 11/04/2017 209/126 09/18/2017 130/80 03/21/2016 138/82 Lipids: Cholesterol, Total (mg/dL) Date Value 01/31/2015 210 09/30/2014 207 HDL Cholesterol (mg/dL) Date Value 01/31/2015 36 09/30/2014 42 LDL Cholesterol (mg/dL) Date Value 01/31/2015 135 09/30/2014 124 Triglyceride (mg/dL) Date Value 01/31/2015 193 09/30/2014 205 HGB A1C: No results found for: HBA1C TSH: No results found for: TSH) Care Gap: HTN - Last BP NOT under 140/90 Plan: ? Confirm PCP / Status ? Type of appointment needed: Follow-up ? Consultation Appointments: No patient outreach needed at this time ? KAREN Bone MA 04/29/2018 3:42 PM Signed I have attempted to contact this patient by phone to return their call, schedule an appointment, discuss lab results, etc. Left message to call back. Radha Frias MA 04/29/2018 3:42 PM Signed The patient has been identified by name and date of : YES I have scheduled the patient for an appointment on 05/02/2018. The patient will report to the lab prior to the visit. I have pended the following lab orders: None PHMA Documentation 04/29/2018 Opts out of [facility] No Appointments Scheduled Scheduled CP Appt BP > 139/89 Other Appt Appt Date 05/02/2018 Radha Frias MA Allergies As of Date: 04/15/2018 (No Known Allergies) Date Reviewed: 11/04/2017 Reviewed by: Beth ([facility]) KAREN Antonio - Fully Assessed Reason for Visit: PHMA/Care Gap Outreach [[id number]] Prescriptions as of 04/15/2018 Sig: ALENDRONATE 70 MG TABLET Take 1 tablet by mouth once e* DOCUSATE SODIUM 100 MG CAPSULE Take 100 mg by mouth once luisa* HYDROCODONE 5 MG-ACETAMINOPHE* Take 1 tablet by mouth every * CHOLECALCIFEROL (VITAMIN D3) * Take 1 capsule by mouth once * MECLIZINE 12.5 MG TABLET Take 1 tablet by mouth three * LEVETIRACETAM 750 MG TABLET Take 750 mg by mouth twice da* ASPIRIN 81 MG TABLET,DELAYED * Take 81 mg by mouth once rohit* Problem List As Of Date 04/15/2018 Noted Resolved Rectal mass [K62.9] INVALID FOR*09/30/2014 History of duodenal ulcer [Z87.19] INVALID FOR* Prostate cancer (HCC) [C61] INVALID FOR* Tobacco abuse [Z72.0] INVALID FOR*09/18/2017 History of CVA (cerebrovascular accident) [Z86.*INVALID FOR* Memory loss [R41.3] INVALID FOR* Vascular dementia [F01.50] INVALID FOR* Diarrhea following gastrointestinal surgery [R1*INVALID FOR*11/04/2017 Seizure disorder as sequela of cerebrovascular *INVALID FOR* Vitamin D deficiency [E55.9] INVALID FOR* More... Vertebral compression fracture (HCC) [M48.50XA] INVALID FOR* Age-related osteoporosis with current pathologi*INVALID FOR* More... Encounter Status:Closed by RADHA FRIAS on 04/29/18 PHOSPHORUS Collected: 03/27/2018 Status: F Source: [place] 2:47 PM [facility] TYPE CODE TESTS RESULT OUT OF RANGE REFERENCE UNITS LAB L501.2300 2.5-4.9 mg/dL Normal PHOS 2.9 Performed By: #### L501.2300, L501.5200 #### [facility] [address] [place], [place], [id number] MAGNESIUM Collected: 03/27/2018 Status: F Source: [place] 2:47 PM [facility] TYPE CODE TESTS RESULT OUT OF RANGE REFERENCE UNITS LAB L501.5200 1.6-2.6 mg/dL Normal MG 2.0 Performed By: #### L501.2300, L501.5200 #### [facility] [address] [place], [place], [address] KEPPRA (LEVETIRACETAM) Collected: 03/27/2018 Status: F Source: [place] 2:47 PM [facility] TYPE CODE TESTS RESULT OUT OF RANGE REFERENCE UNITS LAB L3310.0000 10.0-40.0 ug/mL Normal KEPPRA 26.1 Result Comment: Performed at: [address] [id number] Graphics Edit Technician: Vu Davis MD, Phone: [phone] Performed By: #### L3310.0000 #### [facility] (refer to report for specific site) refer to report for address and phone number ALLERGIES ALLERGIES DATE TYPE / CODE NAME / CODE REACTION SEVERITY SOURCE 10/28/2017 Drug No Known Unknown [facility] Allergy/416 Allergies/Y48545 Hospital 217054(SNOM 0388(RXNORM) Repository ED CT) Drug NO KNOWN [facility] Class/75709 ALLERGIES Main [place] 1003(SNOMED Repository CT) ENCOUNTERS ENCOUNTERS ADMIT/DISCHARGE ACCOUNT ADMITTING ENCOUNTER LOCATION SOURCE NUMBER CLASS 10/16/2018 [id number] [facility] ing:LAB Repository 06/27/2018/06/30/20 [id number] Ambulatory [address] Repository 06/24/2018/06/24/20 [id number] Emergency [address] ing:ED Repository 06/20/2018/06/20/20 [id number] Ambulatory [address] [place] Repository 06/20/2018/06/20/20 [id number] Ambulatory [address] [place] Repository 06/12/2018/06/13/20 [id number] Ambulatory [address] [place] Repository 05/30/2018/06/03/20 [id number] Ambulatory [address] [place] Repository 05/23/2018/05/26/20 [id number] Ambulatory [address] [place] Repository 05/12/2018/05/12/20 [id number] Ambulatory [address] [place] Repository 05/02/2018/05/02/20 [id number] Ambulatory [address] [place] Repository 05/02/2018 [id number] Ambulatory [facility] [place] Repository 05/02/2018/05/05/20 [id number] Ambulatory [address] [place] Repository 03/27/2018 [id number] [facility] ing:LAB.FUTUR Repository E PAYERS PAYERS ENCOUNTER GUARANTOR PAYER SUBSCRIBER SOURCE 10/16/2018 RAMSES Oquendo Primary RAMSES S Matty [id number] Insurance:MEDICARE [id number] [id number]: Number: Repository [id number] (HP) Date:2018-10-16 10/16/2018 Secondary RAMSES S [place] Insurance:AULTCAREPol LARGEDOB: Community icy Number: [id number] Hospital [id number] Repository Date:[id number] [address] [address]RH: 10/16/2018 Tertiary NOT GIVENUNK Matty Insurance:SELF PAY [facility] Number: Effective Repository Date:2018-10-16 06/24/2018 Ramses S Primary Ramses S [place] [id number] Insurance:MEDICARE LargeDOB: [facility], PART A [facility] [id number] [facility]ajo Medical Center [address]Wgg: Number: Repository [id number] (HP) Date:2018-06-24 06/24/2018 Secondary Ramses S Mat[place] Insurance:AULTCAREPol LargeDOB: Community icy Number: [id number] Hospital [id number] Repository Date:[id number] [facility] [address] [place] [address]CE: 06/24/2018 Tertiary NOT GIVENUNK [place] Insurance:SELF PAY [facility] Number: Effective Repository Date:2018-06-24 03/27/2018 Ramses S Primary Ramses S [place] [id number] Insurance:MEDICARE LargeDOB: [facility], PART A [facility] [id number] [address]Pkt: Number: Repository [id number] (HP) Date:2018-03-24 03/27/2018 Secondary Ramses S [place] Insurance:AULTCAREPol LargeDOB: Community icy Number: [id number] Hospital [id number] Repository Date:1454-55-75HY [address] [address]FO: 03/27/2018 Tertiary NOT GIVENUNK Mat[place] Insurance:SELF PAY [facility] Number: Effective Repository Date:2018-03-24
== END ==
PROVIDERS: Family Provider Family Medicine; PCP Family Medicine; Referring Provider Radiology Radiation Oncology; Visit Provider Radiology Radiation Oncology
DX: Z12.5 Encounter for screening for malignant neoplasm of prostate (principal); Z85.46 Personal history of malignant neoplasm of prostate
CPT/HCPCS: 36415; 84153

== ENCOUNTER → 2019-05-08 11:20 | Outpatient (CLI) | payer MEDICARE, OTHER, SELFPAY ==
[2019-05-08 12:12] LABS: Hematocrit 45.8 % (40-54); Hemoglobin 15.6 g/dl (13.0-16.5); Mean Corp Hgb Conc 34.1 g/gl (32-36); Mean Corpuscular Hgb 31.3 pg (27.0-32.0); Mean Platelet Vol. 11.6 fl (6.2-12.0); Platelet Count 190 K/mm3 (150-450); RBC Distribution Width CV 12.8 % (11.6-14.6); RBC Distribution Width SD 42.6 fl (35.1-43.9); Red Blood Count 4.98 M/mm3 (4.6-6.2); Scan Indicated on CBC? Y/N NO; White Blood Count 5.4 K/mm3 (4.4-11.0)
[2019-05-08 12:49] LABS: Vitamin B12 467 pg/mL (211-911)
[2019-05-08 12:58] LABS: Anion Gap 5 (5-15); BUN 14 mg/dL (7-18); BUN/Creat Ratio 16.5 RATIO (10-20); Calcium,Total 9.1 mg/dL (8.5-10.1); Chloride 107 mmol/L (98-107); Creatinine, Serum 0.85 mg/dL (0.70-1.30); EST Glomerular Filtration Rate 93 mL/min (>60); Est Glom Filt Rate - Afr Amer 113 mL/min (>60); Glucose 99 mg/dL (74-106); Potassium 4.3 mmol/L (3.5-5.1); Sodium Level 142 mmol/L (136-145); Thyroid Stim Hormone (TSH) 4.99 uIU/mL (0.358-3.74)
[2019-05-11 14:09] LABS: ANTINUCLEAR ANTIBODIES DIRECT Positive (Negative); Anti-Centromere B Ab <0.2 AI (0.0-0.9); Anti-Chromatin 0.2 AI (0.0-0.9); Anti-Jo <0.2 AI (0.0-0.9); Anti-Scleroderma-70 AB <0.2 AI (0.0-0.9); RNP Ab <0.2 AI (0.0-0.9); SJOGREN'S Anti-SS-A test < 0.2 AI (0.0-0.9); SJOGREN'S Anti-SS-B test < 0.2 AI (0.0-0.9); Smith Ab <0.2 AI (0.0-0.9)
[2019-05-11 17:15] LABS: Anti-dsDNA Ab 12 IU/mL (0-9)
[2019-05-12 14:06] LABS: Cytoplasmic Ab (C-ANCA) <1:20 titer (Neg:<1:20); PROEL- Albumin 3.6 g/dL (2.9-4.4); PROEL- Alpha-1 Globulin 0.3 g/dL (0.0-0.4); PROEL- Alpha-2 Globulin 0.9 g/dL (0.4-1.0); PROEL- Beta Globulin 1.3 g/dL (0.7-1.3); PROEL- Globulin, Total 3.5 g/dL (2.2-3.9); PROEL- TOTAL PROTEIN 7.1 g/dL (6.0-8.5)
[2019-05-13 09:47] LABS: Arsenic 7245 5 ug/L (2-23); Perinuclear Ab (P-ANCA) <1:20 titer (Neg:<1:20)
== END ==
PROVIDERS: Family Provider Family Medicine; PCP Family Medicine; Referring Provider Clinical Nurse Specialist Acute Care; Visit Provider Clinical Nurse Specialist Acute Care
DX: G62.9 Polyneuropathy, unspecified (principal)
CPT/HCPCS: 36415; 80048; 82175; 82607; 82746; 83655; 83825; 84165; 84443; 85027; 86038; 86225; 86235; 86256

== ENCOUNTER → 2019-05-15 14:19 | Outpatient (CLI) | payer MEDICARE, OTHER, SELFPAY ==
[2019-05-15 15:28] LABS: Free T3 2.8 pg/mL (2.18-3.98); Rheumatoid Factor < 10.0 IU/mL (<15); T4 Free Direct 1.12 ng/dL (0.76-1.46); T4 Total, Thyroxin 9.8 ug/dL (4.5-12.1)
[2019-05-18 18:45] LABS: Dilute Prothrombin Time (dPT) 39.8 sec (0.0-55.0); PTT-LA 42.4 sec (0.0-51.9); Thrombin Time 17.2 sec (0.0-23.0); dPT Confirm Ratio 0.99 Ratio (0.00-1.40)
[2019-05-19 16:44] LABS: Anti-Cardiolipin Ab, IgG, Qn < 9 GPL U/mL (0-14); Anti-Cardiolipin Ab, IgM, Qn < 9 MPL U/mL (0-12); Complement C3 121 mg/dL (82-167); Interpretation Comment: (.)
== END ==
PROVIDERS: Family Provider Family Medicine; PCP Family Medicine; Referring Provider Clinical Nurse Specialist Acute Care; Visit Provider Clinical Nurse Specialist Acute Care
DX: G62.9 Polyneuropathy, unspecified (principal); R76.0 Raised antibody titer; R94.6 Abnormal results of thyroid function studies
CPT/HCPCS: 36415; 84436; 84439; 84481; 86147; 86160; 86431

== ENCOUNTER → 2019-10-14 11:00 | Outpatient (CLI) | payer MEDICARE, SELFPAY ==
[2019-10-14 12:39] LABS: PSA,Total- Diagnostic 0.83 ng/mL (0.0-4.0)
== END ==
PROVIDERS: Family Provider Family Medicine; PCP Family Medicine; Referring Provider Radiology Radiation Oncology; Visit Provider Radiology Radiation Oncology
DX: Z85.46 Personal history of malignant neoplasm of prostate (principal)
CPT/HCPCS: 36415; 84153

== ENCOUNTER → 2020-10-04 09:56 | Outpatient (CLI) | payer MEDICARE, SELFPAY ==
[2020-10-04 12:01] LABS: PSA,Total- Diagnostic 0.74 ng/mL (0.0-4.0)
== END ==
PROVIDERS: PCP Family Medicine; Referring Provider Radiology Radiation Oncology; Visit Provider Radiology Radiation Oncology
DX: Z85.46 Personal history of malignant neoplasm of prostate (principal)
CPT/HCPCS: 36415; 84153

== ENCOUNTER 2020-12-15 08:55 | Inpatient (IN) | payer MEDICARE, SELFPAY ==
[2020-12-15] VITALS (27 sets, daily range): BP systolic 94–142; BP diastolic 61–99; PULSE 72–142; RESP 13–25; TEMP 36.5–36.9; O2SAT 90–98; BMI 26.6; BMI 25.2
--- NOTE | 2020-12-15 09:13 | EKG12_ITS ---
Test Reason : Blood Pressure : / mmHG Vent. Rate : 134 BPM Atrial Rate : 156 BPM P-R Int : 000 ms QRS Dur : 086 ms QT Int : 322 ms P-R-T Axes : 000 059 -28 degrees QTc Int : 480 ms Atrial fibrillation with rapid ventricular response Abnormal QRS-T angle, consider primary T wave abnormality Abnormal ECG Confirmed by YOLI BAUER, LELA ([id number]), newspaper or periodical editor SONIYA BRARETT ([id number]) on 12/19/2020 10:45:19 AM Referred By: ELODIA Confirmed By:KIMMY KENT MD
--- NOTE | 2020-12-15 09:16 | ED.DCSUM_ITS ---
History of Present Illness Chief Complaint: Shortness of Breath Informant: Patient Narrative: 80-year-old male presenting with shortness of breath which has been going on for 2 weeks. He states is been progressively worse. He denies fever, chills, myalgias but does admit to a cough. He has no known exposures to Covid?19. He says he has distant history of ID but has no history of CHF. He is not having chest pain. He denies any lower extremity edema. He states he sleeps twice a day. He states he used to smoke quit about 40 years ago. Past Medical History - Allergies and Home Meds Allergies/Adverse Reactions: Allergies No Known Allergies Allergy (Verified 12/15/20 08:58) Prior records reviewed: Yes Past Medical History: - - ID, seizure disorder Surgical History: noncontributory Lives: Spouse/ Significant Other Smoking Status: Former smoker Alcohol: None Drugs: None Review of Systems General: Reports: Malaise. Denies: Chills, Fever Eyes: Denies: Visual changes - bilaterally, Diplopia ENT: Denies: Rhinorrhea, Sore throat Cardiovascular: Reports: Heart racing. Denies: Chest pain Respiratory: Reports: Dyspnea, Cough, Dyspnea on exertion. Denies: Sputum Gastrointestinal: Denies: Abdominal pain, Nausea, Vomiting Musculoskeletal: Denies: Myalgias, Arthralgias Skin: Denies: Rash, Abscess Neurological: Denies: Headache, Weakness, Parasthesia, Numbness Psych: Denies: Depression, Anxiety Physical Exam Vital Signs/Narrative: Vital Signs Temp Pulse Resp BP Pulse Ox 12/15/20 08:56 97.7 F L 142 H 20 H 132/92 H 94 Inital Vital Signs reviewed: Yes General: Well nourished, No Acute Distress Head: Normocephalic, Atraumatic Eyes: Perrl, EOMI. Negative for: Pale conjunctiva ENT: Moist mucous membranes, No rhinorrhea Cardiovascular: Irregular, Tachycardia Respiratory: CTA bilaterally, Chest nontender, - - Tachypneic with pulse ox of 89% on arrival. Negative for: Wheezing, Retractions Back: Nontender, Normal Inspection Extremities: Nontender, No edema Skin: Normal color, No rash. Negative for: Cyanosis, Diaphoresis Neurological: Alert, Oriented x3, Cranial nerves II-XII grossly intact Psychological: Normal affect, Normal Mood Diagnostic/Tx/Re-eval Clinical Impression(s) from Imaging Studies Chest X-Ray 12/15/20 10:00 IMPRESSION: 1. Suspicious right lower lobe pneumonia. 2. Interval development of old fracture deformity of the right humeral head and neck. Electronically Signed: Jack Whittington MD at 10:59 EST , Service support , Chest CTA 12/15/20 10:01 IMPRESSION: 1. No CTA evidence of pulmonary thromboemboli, thoracic aortic aneurysm or dissection. 2. Mild compressive atelectases of the posterior lung bases and minimal groundglass opacity in the right posterior lower lobe. 3. Moderately large right posterior pleural fluid and moderate left posterior pleural fluid. 4. 12 mm thick anterior pericardial fluid. 5. Multiple varying degrees of old compression fractures involving T1, T2, T3, T5, T6, T7, T10 and T11 vertebral bodies. Electronically Signed: Jack Whittington MD at 10:54 EST , Service support , Laboratory Data 12/15/20 12/15/20 12/15/20 09:04 09:04 09:04 WBC 6.6 RBC 4.61 Hgb 14.2 Hct 43.9 MCV 95.2 H MCH 30.8 MCHC 32.3 RDW Std Deviation 47.1 H RDW Coeff of Francis 13.5 Plt Count 271 MPV 11.8 Immature Gran % (Auto) 0.200 Neut % (Auto) 60.8 Lymph % (Auto) 23.4 [place] % (Auto) 11.6 H Eos % (Auto) 3.5 Baso % (Auto) 0.5 Absolute Neuts (auto) 4.0 Absolute Lymphs (auto) 1.54 Nucleated RBC % 0 PT 13.9 INR 1.1 APTT 34.5 Sodium 140 Potassium 3.4 L Chloride 107 Carbon Dioxide 26.0 Anion Gap 7 BUN 9 Creatinine 0.78 Estim Creat Clear Calc 65.74 Est GFR (MDRD) Af Amer 122 Est GFR (MDRD) Non-Af 101 BUN/Creatinine Ratio 11.5 Glucose 111 H Lactic Acid Calcium 8.5 Magnesium Total Bilirubin 0.60 AST 20 ALT 36 Alkaline Phosphatase 128 H Troponin I 0.025 B-Natriuretic Peptide Total Protein 7.2 Albumin 3.4 Globulin 3.8 Albumin/Globulin Ratio 0.9 TSH Urine Color Urine Clarity Urine pH Ur Specific [place] Urine Protein Urine Glucose (UA) Urine Ketones Urine Occult Blood Urine Nitrite Urine Bilirubin Urine Urobilinogen Ur Leukocyte Esterase Urine RBC Urine WBC Ur Squamous Epith Cells Urine Bacteria Urine Mucus COVID-19 (GERMAN) 12/15/20 12/15/20 12/15/20 09:04 09:04 09:04 WBC RBC Hgb Hct MCV MCH MCHC RDW Std Deviation RDW Coeff of Francis Plt Count MPV Immature Gran % (Auto) Neut % (Auto) Lymph % (Auto) [place] % (Auto) Eos % (Auto) Baso % (Auto) Absolute Neuts (auto) Absolute Lymphs (auto) Nucleated RBC % PT INR APTT Sodium Potassium Chloride Carbon Dioxide Anion Gap BUN Creatinine Estim Creat Clear Calc Est GFR (MDRD) Af Amer Est GFR (MDRD) Non-Af BUN/Creatinine Ratio Glucose Lactic Acid 2.3 H* Calcium Magnesium 1.9 Total Bilirubin AST ALT Alkaline Phosphatase Troponin I B-Natriuretic Peptide 131.2 H Total Protein Albumin Globulin Albumin/Globulin Ratio TSH Urine Color Urine Clarity Urine pH Ur Specific [place] Urine Protein Urine Glucose (UA) Urine Ketones Urine Occult Blood Urine Nitrite Urine Bilirubin Urine Urobilinogen Ur Leukocyte Esterase Urine RBC Urine WBC Ur Squamous Epith Cells Urine Bacteria Urine Mucus COVID-19 (GERMAN) 12/15/20 12/15/20 12/15/20 09:04 09:15 10:15 WBC RBC Hgb Hct MCV MCH MCHC RDW Std Deviation RDW Coeff of Francis Plt Count MPV Immature Gran % (Auto) Neut % (Auto) Lymph % (Auto) [place] % (Auto) Eos % (Auto) Baso % (Auto) Absolute Neuts (auto) Absolute Lymphs (auto) Nucleated RBC % PT INR APTT Sodium Potassium Chloride Carbon Dioxide Anion Gap BUN Creatinine Estim Creat Clear Calc Est GFR (MDRD) Af Amer Est GFR (MDRD) Non-Af BUN/Creatinine Ratio Glucose Lactic Acid Calcium Magnesium Total Bilirubin AST ALT Alkaline Phosphatase Troponin I B-Natriuretic Peptide Total Protein Albumin Globulin Albumin/Globulin Ratio TSH 4.55 H Urine Color Yellow Urine Clarity Clear Urine pH 5.0 Ur Specific [place] 1.025 Urine Protein 30 H Urine Glucose (UA) Normal Urine Ketones 50 H Urine Occult Blood Negative Urine Nitrite Negative Urine Bilirubin Negative Urine Urobilinogen 1 H Ur Leukocyte Esterase 25 H Urine RBC 0 SEEN Urine WBC 5-10 SEEN Ur Squamous Epith Cells 0-5 SEEN Urine Bacteria 0 SEEN Urine Mucus 2+ COVID-19 (GERMAN) Negative - Rhythm Strip Rhythm Strip: A-fib Rate: 134 - EKG Initial EKG Interpretation: Atrial Fibrillation - RVR at 134 bpm. - Medical Decision Making 80-year-old male presenting with shortness of breath for the last 2 weeks. He has not had any other viral symptoms that he knows of. Patient is found to be in atrial fibrillation on his initial EKG with RVR as interpreted by myself. Chest x-ray is interpreted by myself was concerning for possible right lower lobe infiltrate. Blood work showed no leukocytosis, normal renal function, lactic acid of 2.3 BNP slightly elevated at 131. Covid PCR swab was negative. Patient was given Cardizem 20 mg initially which did drop his blood pressure slightly. His heart rate is between 101 30. He was given a second dose after his blood pressure improved and his blood pressure did drop again. His heart rate was persistently 100 to 130 bpm. CTA of the chest shows minimal groundglass opacity in the right lower lobe as well as bilateral pleural effusions and a 12 millimeter thick anterior pericardial fluid. Patient was discussed with hospitalist for admission and we did discuss the patient's heart rate. Hospitalist will start digoxin on the floor. Patient medically stable on transfer. Impression: 1. New onset CHF 2. Dyspnea 3. New onset A. fib 4. 12 millimeter thick anterior pericardial fluid ED Disposition - Plan for ED Patient:
[2020-12-15 09:28] LABS: Absolute Lymphocyte Count 1.54 X10^3/uL (0.83-4.51); Basophil# 0.03 X10^3/uL; Basophil% 0.5 % (0-1); Eosinophil# 0.23 X10^3/uL; Eosinophils% 3.5 % (0-5); Hematocrit 43.9 % (40-54); Hemoglobin 14.2 g/dL (13.0-16.5); Lymphocyte # 1.54 X10^3/ul (4.0); Lymphocyte % 23.4 % (19-41); Mean Corp Hgb Conc 32.3 g/dL (32-36); Mean Corpuscular Hgb 30.8 pg (27.0-32.0); Mean Corpuscular Volume 95.2 fL (80-94); Mean Platelet Vol. 11.8 fl (6.2-12.0); Monocyte# 0.76 X10^3/uL; Monocyte% 11.6 % (0-10); NRBC Flagged by Analyzer 0 % (0-5); Neutrophil % 60.8 % (47-70); Platelet Count 271 K/mm3 (150-450); RBC Distribution Width CV 13.5 % (11.6-14.6); RBC Distribution Width SD 47.1 fl (35.1-43.9); Red Blood Count 4.61 M/mm3 (4.6-6.2); White Blood Count 6.6 K/mm3 (4.4-11.0)
[2020-12-15 09:30] LABS: International Normalized Ratio 1.1; Prothrombin Time (Protime)PT. 13.9 SECONDS (11.7-14.9)
[2020-12-15 09:31] LABS: Partial Thromboplast Time 34.5 Seconds (24.1-36.2)
[2020-12-15] MEDS: dilTIAZem 25 MG/5 ML Vial 20 MG IV BOLUS (09:31)
[2020-12-15 09:37] LABS: ALB/GLOB Ratio 0.9 RATIO (0.9-2.4); AST(SGOT) 20 U/L (15-37); Alanine Aminotransfer ALT/SGPT 36 U/L (16-61); Albumin, Serum 3.4 g/dL (3.2-5.0); Alkaline Phosphatase 128 U/L (45-117); Anion Gap 7 (5-15); BUN 9 mg/dL (7-18); BUN/Creat Ratio 11.5 RATIO (10-20); Calcium,Total 8.5 mg/dL (8.5-10.1); Chloride 107 mmol/L (98-107); Creatinine, Serum 0.78 mg/dL (0.70-1.30); EST Glomerular Filtration Rate 101 mL/min (>60); Est Glom Filt Rate - Afr Amer 122 mL/min (>60); Estimated Creatinine Clearance 65.74 ml/min; Globulin 3.8 g/dL (2.2-4.2); Glucose 111 mg/dL (74-106); Potassium 3.4 mmol/L (3.5-5.1); Protein, Total 7.2 g/dL (6.4-8.2); Sodium Level 140 mmol/L (136-145)
[2020-12-15 09:46] LABS: Lactic Acid 2.3 mmol/L (0.4-1.9)
--- NOTE | 2020-12-15 10:00 | RAD_ITS ---
STUDY: X-RAY CHEST REASON FOR EXAM: Male, 80 years old. Shortness of breath x2 weeks. Audible wheezing with exertion. TECHNIQUE: AP upright portable view. COMPARISON: 07/06/2016. FINDINGS: Ill-defined hazy infiltrate in the right lung base. Bibasilar subsegmental atelectases. There is no demonstrated pleural abnormality. Normal size heart. Normal mediastinum and ramon. Normal visualized pulmonary arteries. Normal visualized aortic arch and descending thoracic aorta. Normal visualized thoracic spine. Old fracture deformity of the right humeral head and neck. Normal clavicles, left shoulder and rib cage. There is no demonstrated abnormality of the visualized soft tissue structures of the upper abdomen. RAD/Chest 1 View (Portable) IMPRESSION: 1. Suspicious right lower lobe pneumonia. 2. Interval development of old fracture deformity of the right humeral head and neck. Electronically Signed: Jack Whittington MD at 10:59 EST , Service support ,
--- NOTE | 2020-12-15 10:01 | CT_ITS ---
STUDY: CTA CHEST REASON FOR EXAM: Male, 80 years old. SOB X 2 WKS RADIATION DOSAGE (If Supplied By Facility): CTDIvol = ( 16.49 ) mGy, DLP = ( 488.85 ) mGycm TECHNIQUE: The examination was performed with the intravenous administration of IV 100mL Isovue-370. Post-processing of the angiographic images was performed, with multiplanar reformation and 3D reconstruction. Individualized dose optimization techniques were used for this CT. COMPARISON: None. FINDINGS: Normal enhancement of the main pulmonary artery and right and left pulmonary arteries. Normal enhancement of the bilateral peripheral pulmonary arteries. There is no demonstrated pulmonary embolism. Normal thoracic aorta and visualized great vessels. There is no demonstrated aortic dissection. Normal cardiac size. 12 mm thick anterior pericardial fluid. Normal mediastinum. Normal hilar regions. Normal visualized trachea and bronchi. The lungs are well expanded. Mild compressive atelectases of the posterior lung bases. Minimal groundglass opacity in the right posterior lower lobe. Moderately large right posterior pleural fluid and moderate left posterior pleural fluid. Normal chest wall structures. Multiple varying degrees of compression fractures involving T1, T2, T3, T5, T6, T7, T10 and T11 vertebral bodies. They all appear old. Normal visualized upper abdomen. CT/CTA Chest W/WO Contrast IMPRESSION: 1. No CTA evidence of pulmonary thromboemboli, thoracic aortic aneurysm or dissection. 2. Mild compressive atelectases of the posterior lung bases and minimal groundglass opacity in the right posterior lower lobe. 3. Moderately large right posterior pleural fluid and moderate left posterior pleural fluid. 4. 12 mm thick anterior pericardial fluid. 5. Multiple varying degrees of old compression fractures involving T1, T2, T3, T5, T6, T7, T10 and T11 vertebral bodies. Electronically Signed: Jack Whittington MD at 10:54 EST , Service support ,
[2020-12-15 10:18] LABS: Bacteria 0 SEEN /hpf (None Seen); Red Blood Cells-Urine 0 SEEN /hpf (0-5)
[2020-12-15 10:19] LABS: Color, Urine Yellow (Yellow); Glucose, Dipstick Normal (Normal); Ketone-Dipstick 50 mg/dl (Negative); Leukocyte Esterase-Dipstick 25 /ul (Negative); Nitrite-Dipstick Negative (Negative); Occult Blood-Urine Negative /ul (Negative); Protein-Dipstick 30 mg/dl (Negative); Specific Gravity, Urine 1.025 (1.002-1.030); Urine Bilirubin Dipstick Negative (Negative); Urine Clarity Clear (Clear); Urine Urobilinogen 1 mg/dl (Normal)
[2020-12-15 10:29] LABS: Mucous, Urine 2+ /hpf (<or=2+); Squamous Epithelial Cells - UA 0-5 SEEN /hpf (0-5); White Blood Cells 5-10 SEEN /hpf (0-5)
[2020-12-15 10:33] LABS: Magnesium 1.9 mg/dL (1.6-2.6)
--- NOTE | 2020-12-15 11:58 | ECHOD_ITS ---
Reason For Study: CHF Procedure This was a 2D Doppler, Color Flow transthoracic echocardiogram. The study was technically difficult. Exam performed portable in patient room. Left Ventricle Normal LV size. Mild concentric left ventricular hypertrophy. Left ventricular systolic function is normal. The estimated ejection fraction is 60 %. Unable to assess diastolic dysfunction due to arrhythmia. No regional wall motion abnormalities noted. Right Ventricle Mildly dilated right ventricle. Normal systolic function. Atria The left atrium is moderately enlarged. Normal right atrium. Mitral Valve Mitral valve doming/Hockey Sticking. Bileaflet diffuse mitral valve thickening. Mild (1+) mitral valve insufficiency. Tricuspid Valve Normal tricuspid valve. Mild (1+) tricuspid valve insufficiency. Pulmonary artery systolic pressure is 40 mmHg. Aortic Valve Normal aortic valve. Trisinus/trileaflet aortic valve. Pulmonic Valve Normal pulmonic valve. Pericardium/Pleural Small pericardial effusion. MMode/2D Measurements & Calculations LVIDd: 3.5 cm IVSd: 1.3 cm Ao root diam: 3.7 cm LVIDs: 2.7 cm LVPWd: 1.3 cm RVDd: 3.6 cm FS: 23.1 % LAV(MOD-bp): 75.7 ml LA A4 area: 27.7 cm2 LA dimension(2D): 4.7 cm LAV(MOD-bp) Indexed: 35.8 ml/m2 LAV(MOD-sp2): 64.7 ml LAV(MOD-sp4): 88.2 ml RA A4 area: 20.1 cm2 Doppler Measurements & Calculations Ao V2 max: 77.4 cm/sec LV V1 max: 65.1 cm/sec TR max tracee: 302.6 cm/sec Ao max P.4 mmHg LV V1 max P.7 mmHg TR max P.6 mmHg Interpretation Summary Normal LV size. Left ventricular systolic function is normal. The estimated ejection fraction is 60 %. The left atrium is moderately enlarged. Mild concentric left ventricular hypertrophy. Unable to assess diastolic dysfunction due to arrhythmia. Pulmonary artery systolic pressure is 40 mmHg. Small pericardial effusion. Ordering Physician: Martinez Ames Referring Physician: KARTIK GARCIA Performed By: Gabriella Jones, BETTYE, RVT
--- NOTE | 2020-12-15 12:01 | PCM.HP.STD ---
Problem List (1) Afib Status: Acute (2) CHF (congestive heart failure) Status: Acute (3) Bilateral pleural effusion Status: Acute (4) Seizure disorder Status: Chronic (5) Essential (primary) hypertension Status: Chronic History of Present Illness Date of Admission: 12/15/20 Chief Complaint: Shortness of breath The patient is a 80 year old M with past medical history single for essential hypertension as well as seizure disorder who presented with shortness of breath. Patient states symptoms have been ongoing for the past 2 weeks. Shortness of breath has gotten progressively worse worsening with minimal activity. Patient finally called the EMS squad. Patient was found to be significantly hypoxic with oxygen saturation in the mid 70s. Was placed on supplemental oxygen and brought to the ED. In the ED patient was found to be in A. fib with RVR started on Cardizem drip. Chest x-ray obtained demonstrated bilateral pleural effusion admitted to monitored bed for further management Past Medical History Past Medical History (Chronic Problems): Chronic Problems Seizure disorder (Chronic) Essential (primary) hypertension (Chronic) Allergies No Known Allergies Allergy (Verified 12/15/20 08:58) Home Medications: Ambulatory Orders Medication Instructions Recorded Aspirin [Aspirin, Baby] 81 mg PO QHS 11/27/13 levETIRAcetam tablet [Keppra] 750 mg PO BID 11/27/13 Amlodipine [Norvasc] 5 mg PO DAILY 12/15/20 Ascorbic Acid [Vitamin C with Marlin 1,000 mg PO DAILY 12/15/20 Hips] Multivit-Min/FA/Lycopen/Lutein 1 ea PO DAILY 12/15/20 [Centrum Silver Tablet] Ropinirole HCl [Requip] 0.5 mg PO TID 12/15/20 Surgical History: noncontributory Lives: Spouse/ Significant Other Smoking Status: Former smoker Alcohol: None Drugs: None - *Family History Paternal History Items: Hypertension Review of Systems Constitutional: Reports: Malaise, Fatigue HEENT: Denies: Head Aches, Sinus Congestion, Sinus Drainage Cardiovascular: Denies: Chest Pain, Orthopnea, Palpitations, Paroxysmal Noc. Dyspnea Respiratory: Reports: Shortness of Breath. Denies: Cough, Shortness of breath at rest Gastrointestinal: Denies: Abdominal Pain, Hematemesis, Hematochezia, Nausea, Melena, Vomiting Genitourinary: Denies: Dysuria, Frequency, Hematuria, Urgency Musculoskeletal: Denies: Joint Pain, Joint Tenderness Skin: Denies: Rash Neurological: Denies: Focal weakness, Numbness, Tingling Psychiatric: Denies: Homicidal Ideations, Suicidal Ideations Hematologic/ Lymphatic: Denies: Easy Bruising, Easy Bleeding VTE Information - Inpt Only VTE Present on Admission: No VTE Mechan Device Prophylaxis: None VTE Pharm Prophylaxis ordered?: Yes Patient Problems: Active and Suspected Problems Afib (Acute) CHF (congestive heart failure) (Acute) Bilateral pleural effusion (Acute) Objective: GENERAL: cooperative HEENT: Atraumatic; EYES; Anicteric, Normal Conjunctiva NECK; supple, normal thyroid, RESPIRATORY: Diminished to auscultation CARDIOVASCULAR: irregular tachycardic GI: soft, normoactive bowel sounds, : No Renal angle tenderness; EXTREMITIES: No edema, no clubbing, MUSCULOSKELETAL: no muscle waisting NEURO: Awake; no lateralizing signs. SKIN: No Rash PSYCH; Flat affect - Physical Exam Vitals/I&O's: Vital Signs Temp Pulse Resp BP Pulse Ox 98.0 F 115 H 18 108/83 H 94 12/15/20 10:13 12/15/20 10:13 12/15/20 10:13 12/15/20 10:13 12/15/20 10:13 Oxygen Flow Rate (L/min) 2 Oxygen Delivery Method Room Air Weight: 89.1 kg Body Mass Index (BMI) 26.6 Intake and Output for Last 24 Hours 12/13/20 12/14/20 12/15/20 23:59 23:59 23:59 Intake Total 500 / 500 Balance 500 / 500 Laboratory Results 12/15/20 09:04: WBC 6.6, RBC 4.61, Hgb 14.2, Hct 43.9, MCV 95.2 H, MCH 30.8, MCHC 32.3, RDW Std Deviation 47.1 H, RDW Coeff of Francis 13.5, Plt Count 271, MPV 11.8, Immature Gran % (Auto) 0.200, Neut % (Auto) 60.8, Lymph % (Auto) 23.4, [place] % (Auto) 11.6 H, Eos % (Auto) 3.5, Baso % (Auto) 0.5, Absolute Neuts (auto) 4.0, Absolute Lymphs (auto) 1.54, Nucleated RBC % 0 12/15/20 09:04: PT 13.9, INR 1.1, APTT 34.5 12/15/20 09:04: Sodium 140, Potassium 3.4 L, Chloride 107, Carbon Dioxide 26.0, Anion Gap 7, BUN 9, Creatinine 0.78, Estim Creat Clear Calc 65.74, Est GFR (MDRD) Af Amer 122, Est GFR (MDRD) Non-Af 101, BUN/Creatinine Ratio 11.5, Glucose 111 H, Calcium 8.5, Total Bilirubin 0.60, AST 20, ALT 36, Alkaline Phosphatase 128 H, Troponin I 0.025, Total Protein 7.2, Albumin 3.4, Globulin 3.8, Albumin/Globulin Ratio 0.9 12/15/20 09:04: Lactic Acid 2.3 H* 12/15/20 09:04: Magnesium 1.9 12/15/20 09:04: B-Natriuretic Peptide Pending 12/15/20 09:15: COVID-19 ([place]) Negative 12/15/20 10:15: Urine Color Yellow, Urine Clarity Clear, Urine pH 5.0, Ur Specific [place] 1.025, Urine Protein 30 H, Urine Glucose (UA) Normal, Urine Ketones 50 H, Urine Occult Blood Negative, Urine Nitrite Negative, Urine Bilirubin Negative, Urine Urobilinogen 1 H, Ur Leukocyte Esterase 25 H, Urine RBC 0 SEEN, Urine WBC 5-10 SEEN, Ur Squamous Epith Cells 0-5 SEEN, Urine Bacteria 0 SEEN, Urine Mucus 2+ Assessment/Plan All Active Problems Afib (Acute) CHF (congestive heart failure) (Acute) Bilateral pleural effusion (Acute) Patient is a 80-year-old gentleman who presented with progressive shortness of breath found to be in A. fib with RVR. Checks x-ray demonstrated bilateral pleural effusion admitted to a monitored bed for further management 1. New onset A. fib with RVR ?Duration of patient's A. fib unclear. Patient has had variable rate in the ED started on Cardizem drip admitted to a monitored bed. As part of patient's evaluation ordered 2D echo TSH serial cardiac enzymes and consultation placed to cardiology 2. Acute congestive heart failure ?Suspected heart failure with preserved ejection from patient's underlying A. fib. Started on Lasix echo ordered for EF assessment 2. Bilateral pleural effusion ?Do suspect etiology to be CHF. Patient started on Lasix if patient does not respond to Lasix we will proceed to obtain diagnostic and therapeutic thoracocentesis 4. Hypertension - Blood pressure controlled, home medications continued with dose adjustment as needed 5. Seizure disorder ?Patient is on Keppra did continue 6. Severe sepsis ?Secondary to acute cystitis. Patient was not resuscitated with IV fluid in view of his presentation. Patient was in acute congestive heart failure. Started on Rocephin urine culture sent 7. DVT prophylaxis ?Lovenox Advance planning; did discuss with the patient regarding advanced directives as well as CODE STATUS. Did explain the various scenarios involved ( FULL CODE, DNR CCA, DNR CCA with no intubation, and DNR CC and what each meant) patient elected to main full code with CPR and intubation if warranted. Order was placed. Time spent on discussion 18 minutes. Clinical Impression(s) from Imaging Studies Chest X-Ray 12/15/20 10:00 IMPRESSION: 1. Suspicious right lower lobe pneumonia. 2. Interval development of old fracture deformity of the right humeral head and neck. Electronically Signed: Jack Whittington MD at 10:59 EST , Service support , Chest CTA 12/15/20 10:01 IMPRESSION: 1. No CTA evidence of pulmonary thromboemboli, thoracic aortic aneurysm or dissection. 2. Mild compressive atelectases of the posterior lung bases and minimal groundglass opacity in the right posterior lower lobe. 3. Moderately large right posterior pleural fluid and moderate left posterior pleural fluid. 4. 12 mm thick anterior pericardial fluid. 5. Multiple varying degrees of old compression fractures involving T1, T2, T3, T5, T6, T7, T10 and T11 vertebral bodies. Electronically Signed: Jack Whittington MD at 10:54 EST , Service support , Inpatient E&M: 02224 Init Hosp L3 Procedures: 68806 Advncd Care Plan 30 Min
[2020-12-15] MEDS: dilTIAZem 25 MG/5 ML Vial 10 MG IV BOLUS (12:04)
[2020-12-15 12:16] LABS: BNP,B-Type NATRIURETIC PEPTIDE 131.2 pg/mL (0-100)
[2020-12-15 12:57] LABS: Thyroid Stim Hormone (TSH) 4.55 uIU/mL (0.358-3.74)
[2020-12-15 13:18] LABS: Reflex Lactate? Y
[2020-12-15 14:00] LABS: Lactic Acid 1.4 mmol/L (0.4-1.9)
[2020-12-15] MEDS: 0.9% Saline Lock 10 ML Syringe IV ×2 (15:06→21:09)
[2020-12-15] MEDS: Furosemide 40 MG/4 ML Vial IV ×2 (15:13→21:09)
[2020-12-15] MEDS: Pramipexole Di-HCl 0.25 MG Tablet PO ×2 (15:14→21:18)
--- NOTE | 2020-12-15 17:36 | PCM.CONS.C ---
Reason for Consult Date of Consultation: 12/15/20 Reason for Consultation: Atrial fibrillation, CHF History of Present Illness: The patient is a 80 year old M [Coming to [facility] because of shortness of breath. He was found to be in A. fib with RVR. He has been started on Cardizem drip and IV Lasix. His shortness of breath is improved significantly. He is still on a Cardizem drip and his heart rate is still on the high side.Patient denies any orthopnea. He does have a cough. Review of systems: All systems reviewed. All else is negative except that in the HPI.] Past Medical History Allergies/Adverse Reactions: Allergies No Known Allergies Allergy (Verified 12/15/20 08:58) Home Medications: Ambulatory Orders Medication Instructions Recorded Aspirin [Aspirin, Baby] 81 mg PO QHS 11/27/13 Amlodipine [Norvasc] 5 mg PO DAILY 12/15/20 Ascorbic Acid [Vitamin C with Marlin 1,000 mg PO DAILY 12/15/20 Hips] Cholecalciferol (VIT D3) [Vitamin 1,000 unit PO DAILY 12/15/20 D] Levetiracetam [Keppra] 750 mg PO BID 12/15/20 Multivit-Min/FA/Lycopen/Lutein 1 ea PO DAILY 12/15/20 [Centrum Silver Tablet] Ropinirole HCl [Requip] 0.5 mg PO TID 12/15/20 Past Medical History (Chronic Problems): Chronic Problems Seizure disorder (Chronic) Essential (primary) hypertension (Chronic) Surgical History: noncontributory - *Family History Paternal History Items: Hypertension Lives: Spouse/ Significant Other Smoking Status: Former smoker Tobacco Use: Cigarettes Alcohol: None Drugs: None Objective: Vital Signs Temp Pulse Resp BP Pulse Ox 97.7 F L 118 H 19 H 110/86 H 95 12/15/20 16:35 12/15/20 17:01 12/15/20 17:01 12/15/20 17:01 12/15/20 17:01 Oxygen Flow Rate (L/min) 2 Oxygen Delivery Method Nasal Cannula Weight: 185 lb 13.595 oz Body Mass Index (BMI) 25.2 Intake and Output for Last 24 Hours 12/13/20 12/14/20 12/15/20 23:59 23:59 23:59 Intake Total 572.50 / 572.50 Output Total 450 / 450 Balance 122.50 / 122.50 General: Awake, Alert, Oriented x 3 HEENT: Atraumatic Oral: Moist Mucosa Neck: Supple Lungs: Clear to auscultation Cardiovascular: Irregular Rhythm Abdomen: Soft Extremities: No edema 12/15/20 09:04: WBC 6.6, RBC 4.61, Hgb 14.2, Hct 43.9, MCV 95.2 H, MCH 30.8, MCHC 32.3, Plt Count 271, MPV 11.8, Immature Gran % (Auto) 0.200, Neut % (Auto) 60.8, Lymph % (Auto) 23.4, [place] % (Auto) 11.6 H, Eos % (Auto) 3.5, Baso % (Auto) 0.5, Absolute Neuts (auto) 4.0, Nucleated RBC % 0 12/15/20 09:04: PT 13.9, INR 1.1, APTT 34.5 12/15/20 09:04: Sodium 140, Potassium 3.4 L, Chloride 107, Carbon Dioxide 26.0, Anion Gap 7, BUN 9, Creatinine 0.78, Est GFR (MDRD) Af Amer 122, Est GFR (MDRD) Non-Af 101, BUN/Creatinine Ratio 11.5, Glucose 111 H, Calcium 8.5, Total Bilirubin 0.60, Troponin I 0.025 12/15/20 09:04: Lactic Acid 2.3 H* 12/15/20 09:04: Magnesium 1.9 12/15/20 09:04: B-Natriuretic Peptide 131.2 H 12/15/20 10:15: Urine Color Yellow, Urine Clarity Clear, Urine pH 5.0, Ur Specific [place] 1.025, Urine Protein 30 H, Urine Glucose (UA) Normal, Urine Ketones 50 H, Urine Occult Blood Negative, Urine Nitrite Negative, Urine Bilirubin Negative, Urine Urobilinogen 1 H, Ur Leukocyte Esterase 25 H, Urine RBC 0 SEEN, Urine WBC 5-10 SEEN 12/15/20 13:30: Lactic Acid 1.4 12/15/20 14:52: Troponin I 0.022 Rhythm: EKG: ECHO: Stress Test: Cardiac Cath: PCI: CT Surgery: Holter monitor: EPS: PPM: CXR: Chest CT Scan: Assessment/Plan 1. Atrial fibrillation: I will add metoprolol. We will also try loading him with digoxin to see if this helps get his heart rate under control. Continue IV Cardizem at this time. I discussed anticoagulation with the patient. We will start him on Eliquis. 2. CHF: Patient responded well to Lasix. Tomorrow we should be able to switch him to 40 mg daily of Lasix p.o. His EF is preserved.
[2020-12-15] MEDS: Digoxin 250 MCG Tablet PO (18:35)
[2020-12-15] MEDS: Aspirin 81 MG TAB.CHEW PO (21:09)
[2020-12-15] MEDS: APIXABAN 5 MG TABLET PO (21:09)
[2020-12-15] MEDS: levETIRAcetam 750 MG Tablet PO (21:09)
[2020-12-15] MEDS: Metoprolol Tartrate 25 MG Tablet PO (21:10)
[2020-12-16] VITALS (50 sets, daily range): BP systolic 70–117; BP diastolic 46–98; PULSE 68–108; RESP 16–21; TEMP 36.2–36.8; O2SAT 90–97
[2020-12-16] MEDS: Amiodarone 360 MG in Dextrose 5% Viaflo Bag 192.8 ML 33.3 MG CONT INF (04:40)
[2020-12-16] MEDS: 0.9% Saline Lock 10 ML Syringe IV ×2 (04:47→05:38)
[2020-12-16] MEDS: Furosemide 40 MG/4 ML Vial IV (05:38)
[2020-12-16] MEDS: Pramipexole Di-HCl 0.25 MG Tablet PO ×3 (05:38→22:15)
[2020-12-16 06:19] LABS: Absolute Lymphocyte Count 0.95 X10^3/uL (0.83-4.51); Absolute Neutrophil Count 3.5 X10^3/uL (2.0-7.7); Basophil# 0.04 X10^3/uL; Basophil% 0.7 % (0-1); Eosinophil# 0.29 X10^3/uL; Eosinophils% 5.1 % (0-5); Hematocrit 40.3 % (40-54); Lymphocyte # 0.95 X10^3/ul (4.0); Lymphocyte % 16.8 % (19-41); Mean Corp Hgb Conc 32.3 g/dL (32-36); Mean Platelet Vol. 11.8 fl (6.2-12.0); Monocyte# 0.84 X10^3/uL; Monocyte% 14.8 % (0-10); NRBC Flagged by Analyzer 0 % (0-5); Neutrophil # 3.52 X10^3/uL (2.7-7.7); Neutrophil % 62.2 % (47-70); Platelet Count 235 K/mm3 (150-450); RBC Distribution Width CV 13.7 % (11.6-14.6); RBC Distribution Width SD 48.2 fl (35.1-43.9); White Blood Count 5.7 K/mm3 (4.4-11.0)
[2020-12-16 06:45] LABS: Anion Gap 5 (5-15); BUN 12 mg/dL (7-18); BUN/Creat Ratio 16.9 RATIO (10-20); Calcium,Total 8.4 mg/dL (8.5-10.1); Chloride 111 mmol/L (98-107); Creatinine, Serum 0.71 mg/dL (0.70-1.30); EST Glomerular Filtration Rate 113 mL/min (>60); Est Glom Filt Rate - Afr Amer 137 mL/min (>60); Estimated Creatinine Clearance 65.74 ml/min; Glucose 102 mg/dL (74-106); Magnesium 1.9 mg/dL (1.6-2.6); Phosphorus 3.1 mg/dL (2.5-4.9); Potassium 3.7 mmol/L (3.5-5.1); Sodium Level 140 mmol/L (136-145)
--- NOTE | 2020-12-16 08:34 | PN_ITS ---
Patient Problems: Active and Suspected Problems Afib (Acute) CHF (congestive heart failure) (Acute) Bilateral pleural effusion (Acute) Reason for Visit: Paroxysmal A. fib with RVR Acute cystitis Subjective: Patient is a 80-year-old gentleman who presented with progressive shortness of breath found to be in A. fib with RVR. Checks x-ray demonstrated bilateral pleural effusion admitted to a monitored bed for further management 12/16/2020; patient was admitted to monitored bed started on Cardizem drip heart rate still remain uncontrolled had to be started on amiodarone. Objective: GENERAL: cooperative HEENT: Atraumatic; EYES; Anicteric, Normal Conjunctiva NECK; supple, normal thyroid, RESPIRATORY: Diminished to auscultation CARDIOVASCULAR: irregular tachycardic GI: soft, normoactive bowel sounds, : No Renal angle tenderness; EXTREMITIES: No edema, no clubbing, MUSCULOSKELETAL: no muscle waisting NEURO: Awake; no lateralizing signs. SKIN: No Rash PSYCH; Flat affect Vitals/I&O's: Vital Signs Temp Pulse Resp BP Pulse Ox 97.5 F L 105 H 16 117/98 H 93 12/16/20 08:00 12/16/20 08:00 12/16/20 08:00 12/16/20 08:00 12/16/20 08:00 Oxygen Flow Rate (L/min) 4 Oxygen Delivery Method Nasal Cannula Weight: 84.3 kg Body Mass Index (BMI) 25.2 Intake and Output for Last 24 Hours 12/14/20 12/15/20 12/16/20 23:59 23:59 23:59 Intake Total 787.00 / 797.25 246.08 / 246.08 Output Total 1425 / 1425 600 / 600 Balance -638.00 / -627.75 -353.92 / -353.92 Laboratory Results 12/15/20 09:04: WBC 6.6, RBC 4.61, Hgb 14.2, Hct 43.9, MCV 95.2 H, MCH 30.8, MCHC 32.3, RDW Std Deviation 47.1 H, RDW Coeff of Francis 13.5, Plt Count 271, MPV 11.8, Immature Gran % (Auto) 0.200, Neut % (Auto) 60.8, Lymph % (Auto) 23.4, [place] % (Auto) 11.6 H, Eos % (Auto) 3.5, Baso % (Auto) 0.5, Absolute Neuts (auto) 4.0, Absolute Lymphs (auto) 1.54, Nucleated RBC % 0 12/15/20 09:04: PT 13.9, INR 1.1, APTT 34.5 12/15/20 09:04: Sodium 140, Potassium 3.4 L, Chloride 107, Carbon Dioxide 26.0, Anion Gap 7, BUN 9, Creatinine 0.78, Estim Creat Clear Calc 65.74, Est GFR (MDRD) Af Amer 122, Est GFR (MDRD) Non-Af 101, BUN/Creatinine Ratio 11.5, Glucose 111 H, Calcium 8.5, Total Bilirubin 0.60, AST 20, ALT 36, Alkaline Phosphatase 128 H, Troponin I 0.025, Total Protein 7.2, Albumin 3.4, Globulin 3.8, Albumin/Globulin Ratio 0.9 12/15/20 09:04: Lactic Acid 2.3 H* 12/15/20 09:04: Magnesium 1.9 12/15/20 09:04: B-Natriuretic Peptide 131.2 H 12/15/20 09:04: TSH 4.55 H 12/15/20 09:15: COVID-19 (GERMAN) Negative 12/15/20 10:15: Urine Color Yellow, Urine Clarity Clear, Urine pH 5.0, Ur Specific [place] 1.025, Urine Protein 30 H, Urine Glucose (UA) Normal, Urine Ketones 50 H, Urine Occult Blood Negative, Urine Nitrite Negative, Urine Bilirubin Negative, Urine Urobilinogen 1 H, Ur Leukocyte Esterase 25 H, Urine RBC 0 SEEN, Urine WBC 5-10 SEEN, Ur Squamous Epith Cells 0-5 SEEN, Urine Bacteria 0 SEEN, Urine Mucus 2+ 12/15/20 13:30: Lactic Acid 1.4 12/15/20 14:52: Troponin I 0.022 12/15/20 15:12: Troponin I 0.017 12/16/20 05:58: WBC 5.7, RBC 4.20 L, Hgb 13.0, Hct 40.3, MCV 96.0 H, MCH 31.0, MCHC 32.3, RDW Std Deviation 48.2 H, RDW Coeff of Francis 13.7, Plt Count 235, MPV 11.8, Immature Gran % (Auto) 0.400, Neut % (Auto) 62.2, Lymph % (Auto) 16.8 L, [place] % (Auto) 14.8 H, Eos % (Auto) 5.1 H, Baso % (Auto) 0.7, Absolute Neuts (auto) 3.5, Absolute Lymphs (auto) 0.95, Nucleated RBC % 0 12/16/20 05:58: Sodium 140, Potassium 3.7, Chloride 111 H, Carbon Dioxide 24.0, Anion Gap 5, BUN 12, Creatinine 0.71, Estim Creat Clear Calc 65.74, Est GFR (MDRD) Af Amer 137, Est GFR (MDRD) Non-Af 113, BUN/Creatinine Ratio 16.9, Glucose 102, Calcium 8.4 L, Phosphorus 3.1, Magnesium 1.9 Current Medications Acetaminophen (Acetaminophen 325 Mg Tablet) 650 mg PO Q6H PRN PRN PRN Reason: Pain Score 1-10/Temp > 100.7 F Al Hydroxide/Mg Hydroxide (Mag Hydrox/Al Hydrox/Simeth 30 Ml Udc) 30 ml PO Q6H PRN PRN PRN Reason: Gastric Burning Albuterol Sulfate (Albuterol 2.5 Mg/3 Ml Vial.Neb.) 2.5 mg INHALATION Q2H PRN PRN PRN Reason: SOB/Wheezing Amlodipine Besylate (Amlodipine 5 Mg Tablet) 5 mg PO DAILY [facility] Apixaban (Apixaban 5 Mg Tablet) 5 mg PO BID [facility] Last Admin: 12/15/20 21:09 Dose: 5 mg Documented by: Ascorbic Acid (Ascorbic Acid 500 Mg Tablet) 1,000 mg PO DAILY [facility] Aspirin (Aspirin 81 Mg Tab.Chew) 81 mg PO QHS [facility] Last Admin: 12/15/20 21:09 Dose: 81 mg Documented by: Cholecalciferol (Cholecalciferol (Vit D3) 1,000 Unit (25mcg)) 1,000 unit PO DAILY [facility] Furosemide (Furosemide 40 Mg/4 Ml Vial) 40 mg IV Q8 [facility] Last Admin: 12/16/20 05:38 Dose: 40 mg Documented by: Guaifenesin (Guaifenesin 10 Ml Udc (200mg/10ml)) 20 ml PO Q4H PRN PRN PRN Reason: COUGH Amiodarone HCl 360 mg/ (Dextrose) 200 mls @ 33.333 mls/hr CONT INF .Q6H [facility] Stop: 12/16/20 10:29 Last Infusion: 12/16/20 08:00 Dose: 1 mg/min, 33.3 mls/hr Documented by: Amiodarone HCl 360 mg/ (Dextrose) 200 mls @ 16.667 mls/hr CONT INF .Q12H [facility] Stop: 12/17/20 04:29 Levetiracetam (Levetiracetam 750 Mg Tablet) 750 mg PO BID [facility] Last Admin: 12/15/20 21:09 Dose: 750 mg Documented by: Magnesium Hydroxide (Magnesium Hydroxide 30 Ml Udc) 30 ml PO DAILY PRN PRN PRN Reason: Constipation Melatonin (Melatonin 3 Mg Tablet) 3 mg PO QHS PRN PRN PRN Reason: INSOMNIA Metoprolol Tartrate (Metoprolol Tartrate 25 Mg Tablet) 25 mg PO BID [facility] Last Admin: 12/15/20 21:10 Dose: 25 mg Documented by: Multivitamins/Minerals (Multivitamin (Healthy Eyes) Capsule) [facility] Nitroglycerin (Nitroglycerin (Inpatient Use) 0.4 Mg Tab.Subl) 0.4 mg SUBLINGUAL Q5M PRN PRN Reason: CARDIAC/CHEST PAIN Ondansetron HCl (Ondansetron 4 Mg/2 Ml Vial) 4 mg IV Q8H PRN PRN PRN Reason: NAUSEA/VOMITING Oxycodone HCl (Oxycodone 5 Mg Tablet) 5 mg PO Q4H PRN PRN PRN Reason: Pain Score 4-5 Oxycodone HCl (Oxycodone 5 Mg Tablet) 10 mg PO Q4H PRN PRN PRN Reason: Pain Score 6-10 Potassium Chloride (Potassium Chloride 20 Meq Tablet) 20 [facility] Last Admin: 12/15/20 17:09 Dose: Not Given Documented by: Pramipexole Dihydrochloride (Pramipexole Di-Hcl 0.25 Mg Tablet) 0.25 mg PO TID [facility] Last Admin: 12/16/20 05:38 Dose: 0.25 mg Documented by: Promethazine HCl (Promethazine 25 Mg/Ml Syringe) 25 mg IM Q6H PRN PRN PRN Reason: Breakthrough Nausea/Vomiting Sodium Chloride (0.9% Saline Lock 10 Ml Syringe) 10 - 40 ml IV UD PRN PRN Reason: SALINE FLUSH Last Admin: 12/16/20 05:38 Dose: 10 ml Documented by: STROKE Vital Signs/Narrative: Vital Signs Temp Pulse Resp BP Pulse Ox 12/16/20 08:00 97.5 F L 105 H 16 117/98 H 93 12/16/20 07:06 94 12/16/20 07:00 100 18 114/90 H 94 12/16/20 06:00 97.1 F L 91 18 116/86 H 96 12/16/20 05:45 92 111/85 H 12/16/20 05:30 93 98/73 12/16/20 05:15 88 106/65 12/16/20 05:00 92 18 112/77 95 12/16/20 04:45 89 95/69 12/16/20 04:40 108 H 103/83 H Medical Necessity - Tobacco Use Smoking Status: Former smoker Tobacco Use: Cigarettes Assessment/Plan All Active Problems Afib (Acute) CHF (congestive heart failure) (Acute) Bilateral pleural effusion (Acute) Patient is a 80-year-old gentleman who presented with progressive shortness of breath found to be in A. fib with RVR. Checks x-ray demonstrated bilateral pleural effusion admitted to a monitored bed for further management 1. New onset A. fib with RVR ?Duration of patient's A. fib unclear. Patient has had variable rate in the ED started on Cardizem drip admitted to a monitored bed. As part of patient's [place] luation ordered 2D echo TSH serial cardiac enzymes and consultation placed to cardiology -12/16/2020; patient was seen in consultation by Dr. Conway with cardiology. Added digoxin to help with heart rate control. Patient was also started on systemic anticoagulation with Eliquis. Patient seen this morning heart rate still remains not well controlled. Subsequently started on amiodarone. 2. Acute congestive heart failure ?Suspected heart failure with preserved ejection from patient's underlying A. fib. Started on Lasix echo ordered for EF assessment Left ventricular systolic function is normal. The estimated ejection fraction is 60 %. The left atrium is moderately enlarged. Mild concentric left ventricular hypertrophy. Unable to assess diastolic dysfunction due to arrhythmia. Pulmonary artery systolic pressure is 40 mmHg. Small pericardial effusion. 12/16/2020; patient remains on diuretics echo results as above 2. Bilateral pleural effusion ?Do suspect etiology to be CHF. Patient started on Lasix if patient does not respond to Lasix we will proceed to obtain diagnostic and therapeutic thoracocentesis 4. Hypertension - Blood pressure controlled, home medications continued with dose adjustment as needed 5. Seizure disorder ?Patient is on Keppra did continue 6. Severe sepsis ?Secondary to acute cystitis. Patient was not resuscitated with IV fluid in view of his presentation. Patient was in acute congestive heart failure. Started on Rocephin urine culture sent -12/16/2020; cultures pending 7. DVT prophylaxis ?Lovenox Inpatient E&M: 79435 Subs Hosp L3
[2020-12-16] MEDS: Multivitamin (Healthy Eyes) Capsule 1 CAP PO (10:37)
[2020-12-16] MEDS: Metoprolol Tartrate 25 MG Tablet PO ×2 (10:37→22:16)
[2020-12-16] MEDS: APIXABAN 5 MG TABLET PO ×2 (10:37→22:15)
[2020-12-16] MEDS: Ascorbic Acid 500 MG Tablet 1000 MG PO (10:37)
[2020-12-16] MEDS: Amiodarone 360 MG in Dextrose 5% Viaflo Bag 192.8 ML 16.7 MG CONT INF ×2 (11:03→22:24)
[2020-12-16] MEDS: levETIRAcetam 750 MG Tablet PO ×2 (12:08→22:14)
--- NOTE | 2020-12-16 13:36 | CASEMGMT ---
Addendum entered by Wilfredo Rogers 12/16/20 13:45: 1230: Pt's present in room. Reviewed Eliquis card with and instructed on use. She denies having any questions. Discussed CCN with and she declines at this time, stating, I don't do the home thing. has [facility] card and aware she can contact them in the future if she decides later she is interested. She voices appreciation. RN CM assessment documented below completed @ 1125. Original Note: RN CM DRY PRESS OPERATOR HELPER CM to room to meet with patient for initial transition planning/care coordination assessment. RN ELLIOT introduced self and role at [facility]. Pt voices understanding and consents to assessment at this time. Pt resting in bed in no distress at this time. Pt is A/O at this time and answers all questions appropriately. Care providers, pharmacy, and demographics verified/updated at this time. PCP: Dr Araceli Durham Preferred Pharmacy: [facility] Insurance: [facility] Prescription Benefit: Yes. Pt to discharge home on Eliquis. Pt provided w/Eliquis free 30-day trial offer and instructed on use of card. Living Will/HPOA: Pt has both LW and Healthcare POA, who is his daughter, Doris Mace as primary POA. Son-in-law, Mamadou, is 1st alternative. Copy of updated AD on pt's chart. LNOK: , Doris. Living Arrangements: Lives w/his in one-story home w/no steps to enter. Pt is independent w/ADL's. does most home mgmt tasks. Transportation: DME: has a walker that he uses a little bit. Does not have Home O2. Pt is currently on 4 L/M O2. Recommend Home O2 testing be completed prior to discharge. Pt provided w/list of local DME companies. He does not have preference of DME co if he qualifies for home O2 and is agreeable to [employer]. HHC/SNF: No history of either. Pt wishes to return home and states has no concerns with going home at time of discharge. Pt declines HHC or OP therapy. Also discussed CCN for new onset A-fib and new onset CHF. Pt provided w/CCN rac card. Pt asks for VERONICA ZARATE to discuss this with his . CM to follow for home oxygen needs and any further discharge planning/needs. Pt voices no further concerns/needs at this time. Advised pt to ask for CM if any further questions/concerns/needs arise. Voices understanding. PLAN: Home w/spousal support. Recommend home O2 testing be completed prior to discharge. Green sheet placed on pt's chart w/home O2 set-up instructions if pt qualifies for O2 Aye ALVARESN RN CM
--- NOTE | 2020-12-16 17:26 | PN.CARD_ITS ---
Subjectve: Patient has noticed improvement today compared to yesterday. He is no longer short of breath. Since patient's blood pressure was low he was switched from Cardizem to amiodarone IV. His heart rate is better controlled with this. Objective: Vital Signs Temp Pulse Resp BP Pulse Ox 98.0 F 91 20 H 99/84 H 97 12/16/20 10:00 12/16/20 15:00 12/16/20 14:00 12/16/20 14:00 12/16/20 14:00 Oxygen Flow Rate (L/min) 2 Oxygen Delivery Method Nasal Cannula Weight: 185 lb 13.595 oz Body Mass Index (BMI) 25.2 Intake and Output for Last 24 Hours 12/14/20 12/15/20 12/16/20 23:59 23:59 23:59 Intake Total 787.00 / 797.25 575.06 / 575.06 Output Total 1425 / 1425 600 / 600 Balance -638.00 / -627.75 -24.94 / -24.94 General: Awake, Alert, Oriented x 3 HEENT: Atraumatic Oral: Moist Mucosa Neck: Supple Lungs: Clear to auscultation Cardiovascular: Irregular Rhythm Abdomen: Soft Extremities: No edema Skin: No Rashes Psych/Mental Status: Appropriate 12/15/20 15:12: Troponin I 0.017 12/16/20 05:58: WBC 5.7, RBC 4.20 L, Hgb 13.0, Hct 40.3, MCV 96.0 H, MCH 31.0, MCHC 32.3, Plt Count 235, MPV 11.8, Immature Gran % (Auto) 0.400, Neut % (Auto) 62.2, Lymph % (Auto) 16.8 L, [place] % (Auto) 14.8 H, Eos % (Auto) 5.1 H, Baso % (Auto) 0.7, Absolute Neuts (auto) 3.5, Nucleated RBC % 0 12/16/20 05:58: Sodium 140, Potassium 3.7, Chloride 111 H, Carbon Dioxide 24.0, Anion Gap 5, BUN 12, Creatinine 0.71, Est GFR (MDRD) Af Amer 137, Est GFR (MDRD) Non-Af 113, BUN/Creatinine Ratio 16.9, Glucose 102, Calcium 8.4 L, Phosphorus 3.1, Magnesium 1.9 Rhythm: EKG: ECHO: Stress Test: Cardiac Cath: PCI: CT Surgery: Holter monitor: EPS: PPM: CXR: Chest CT Scan: Medical Necessity - Tobacco Use Smoking Status: Former smoker Tobacco Use: Cigarettes Assessment/Plan 1. Atrial fibrillation: Heart rate is better controlled with IV amiodarone and metoprolol. Continue current regimen for now. From tomorrow we can switch to amiodarone 200 mg p.o. twice daily. To his blood pressure being on the low side we will discontinue Norvasc. 2. CHF: Patient responded well to Lasix. We will change his Lasix to p.o.
[2020-12-16] MEDS: Aspirin 81 MG TAB.CHEW PO (22:15)
[2020-12-17] VITALS (13 sets, daily range): BP systolic 95–112; BP diastolic 61–97; PULSE 83–95; RESP 15–20; TEMP 36.3–36.5; O2SAT 92–96
[2020-12-17] MEDS: 0.9% Saline Lock 10 ML Syringe IV (04:31)
[2020-12-17] MEDS: Pramipexole Di-HCl 0.25 MG Tablet PO (04:32)
[2020-12-17] MEDS: Amiodarone 200 MG Tablet PO (04:32)
[2020-12-17 08:04] LABS: Absolute Lymphocyte Count 1.17 X10^3/uL (0.83-4.51); Absolute Neutrophil Count 3.7 X10^3/uL (2.0-7.7); Basophil# 0.03 X10^3/uL; Basophil% 0.5 % (0-1); Eosinophil# 0.35 X10^3/uL; Eosinophils% 5.8 % (0-5); Hematocrit 39.6 % (40-54); Hemoglobin 12.7 g/dL (13.0-16.5); Lymphocyte # 1.17 X10^3/ul (4.0); Lymphocyte % 19.3 % (19-41); Mean Corp Hgb Conc 32.1 g/dL (32-36); Mean Corpuscular Hgb 30.9 pg (27.0-32.0); Mean Corpuscular Volume 96.4 fL (80-94); Mean Platelet Vol. 11.9 fl (6.2-12.0); Monocyte# 0.79 X10^3/uL; Monocyte% 13.1 % (0-10); NRBC Flagged by Analyzer 0 % (0-5); Neutrophil # 3.69 X10^3/uL (2.7-7.7); Platelet Count 226 K/mm3 (150-450); RBC Distribution Width CV 13.4 % (11.6-14.6); RBC Distribution Width SD 47.6 fl (35.1-43.9); Red Blood Count 4.11 M/mm3 (4.6-6.2); White Blood Count 6.1 K/mm3 (4.4-11.0)
--- NOTE | 2020-12-17 08:05 | PN_ITS ---
Patient Problems: Active and Suspected Problems Afib (Acute) CHF (congestive heart failure) (Acute) Bilateral pleural effusion (Acute) Reason for Visit: Paroxysmal A. fib with RVR Acute cystitis Subjective: Patient is a 80-year-old gentleman who presented with progressive shortness of breath found to be in A. fib with RVR. Checks x-ray demonstrated bilateral pleural effusion admitted to a monitored bed for further management 12/16/2020; patient was admitted to monitored bed started on Cardizem drip heart rate still remain uncontrolled had to be started on amiodarone. 12/17/2020; patient breathing significantly improved. Heart rate relatively controlled. Plan is for patient to be discharged home on amiodarone, Lasix, Eliquis and metoprolol Objective: GENERAL: cooperative HEENT: Atraumatic; EYES; Anicteric, Normal Conjunctiva NECK; supple, normal thyroid, RESPIRATORY: Diminished to auscultation CARDIOVASCULAR: irregular tachycardic GI: soft, normoactive bowel sounds, : No Renal angle tenderness; EXTREMITIES: No edema, no clubbing, MUSCULOSKELETAL: no muscle waisting NEURO: Awake; no lateralizing signs. SKIN: No Rash PSYCH; Flat affect Vitals/I&O's: Vital Signs Temp Pulse Resp BP Pulse Ox 97.7 F L 86 16 110/97 H 95 12/17/20 04:00 12/17/20 07:00 12/17/20 04:00 12/17/20 04:00 12/17/20 07:37 Oxygen Flow Rate (L/min) 3 Oxygen Delivery Method Nasal Cannula Weight: 84.3 kg Body Mass Index (BMI) 25.2 Intake and Output for Last 24 Hours 12/15/20 12/16/20 12/17/20 23:59 23:59 23:59 Intake Total 787.00 / 797.25 1014.63 / 1031.33 94.36 / 94.36 Output Total 1425 / 1425 600 / 600 375 / 375 Balance -638.00 / -627.75 414.63 / 431.33 -280.64 / -280.64 Microbiology Past 72 Hours 12/15/20 09:04 Blood Culture (Wb) - Anticubital Right Blood Culture - Preliminary No growth in 48 hours. 12/15/20 09:25 Blood Culture (Wb) - Anticubital Left Blood Culture - Preliminary No growth in 48 hours. 12/15/20 10:15 Urine, Clean Catch Urine Culture - Final Mixed Gram Pos & Gram Neg Org Laboratory Results 12/17/20 07:05: WBC 6.1, RBC 4.11 L, Hgb 12.7 L, Hct 39.6 L, MCV 96.4 H, MCH 30.9, MCHC 32.1, RDW Std Deviation 47.6 H, RDW Coeff of Francis 13.4, Plt Count 226, MPV 11.9, Immature Gran % (Auto) 0.300, Neut % (Auto) 61.0, Lymph % (Auto) 19.3, Christian % (Auto) 13.1 H, Eos % (Auto) 5.8 H, Baso % (Auto) 0.5, Absolute Neuts (auto) 3.7, Absolute Lymphs (auto) 1.17, Nucleated RBC % 0 12/17/20 07:05: Sodium Pending, Potassium Pending, Chloride Pending, Carbon Dioxide Pending, Anion Gap Pending, BUN Pending, Creatinine Pending, Est GFR (MDRD) Af Amer Pending, Est GFR (MDRD) Non-Af Pending, BUN/Creatinine Ratio Pending, Glucose Pending, Calcium Pending Current Medications Acetaminophen (Acetaminophen 325 Mg Tablet) 650 mg PO Q6H PRN PRN PRN Reason: Pain Score 1-10/Temp > 100.7 F Al Hydroxide/Mg Hydroxide (Mag Hydrox/Al Hydrox/Simeth 30 Ml Udc) 30 ml PO Q6H PRN PRN PRN Reason: Gastric Burning Albuterol Sulfate (Albuterol 2.5 Mg/3 Ml Vial.Neb.) 2.5 mg INHALATION Q2H PRN PRN PRN Reason: SOB/Wheezing Amiodarone HCl (Amiodarone 200 Mg Tablet) 200 mg PO BID [facility] Last Admin: 12/17/20 04:32 Dose: 200 mg Documented by: Apixaban (Apixaban 5 Mg Tablet) 5 mg PO BID [facility] Last Admin: 12/16/20 22:15 Dose: 5 mg Documented by: Ascorbic Acid (Ascorbic Acid 500 Mg Tablet) 1,000 mg PO DAILY [facility] Last Admin: 12/16/20 10:37 Dose: 1,000 mg Documented by: Aspirin (Aspirin 81 Mg Tab.Chew) 81 mg PO QHS [facility] Last Admin: 12/16/20 22:15 Dose: 81 mg Documented by: Cholecalciferol (Cholecalciferol (Vit D3) 1,000 Unit (25mcg)) 1,000 unit PO DAILY [facility] Last Admin: 12/16/20 10:37 Dose: 1,000 unit Documented by: Furosemide (Furosemide 40 Mg Tablet) 40 mg PO DAILY [facility] Guaifenesin (Guaifenesin 10 Ml Udc (200mg/10ml)) 20 ml PO Q4H PRN PRN PRN Reason: COUGH Levetiracetam (Levetiracetam 750 Mg Tablet) 750 mg PO BID [facility] Last Admin: 12/16/20 22:14 Dose: 750 mg Documented by: Magnesium Hydroxide (Magnesium Hydroxide 30 Ml Udc) 30 ml PO DAILY PRN PRN PRN Reason: Constipation Melatonin (Melatonin 3 Mg Tablet) 3 mg PO QHS PRN PRN PRN Reason: INSOMNIA Metoprolol Tartrate (Metoprolol Tartrate 25 Mg Tablet) 25 mg PO BID [facility] Last Admin: 12/16/20 22:16 Dose: 25 mg Documented by: Multivitamins/Minerals (Multivitamin (Healthy Eyes) Capsule) [facility] Last Admin: 12/16/20 10:37 Dose: 1 capsule Documented by: Nitroglycerin (Nitroglycerin (Inpatient Use) 0.4 Mg Tab.Subl) 0.4 mg SUBLINGUAL Q5M PRN PRN Reason: CARDIAC/CHEST PAIN Ondansetron HCl (Ondansetron 4 Mg/2 Ml Vial) 4 mg IV Q8H PRN PRN PRN Reason: NAUSEA/VOMITING Oxycodone HCl (Oxycodone 5 Mg Tablet) 5 mg PO Q4H PRN PRN PRN Reason: Pain Score 4-5 Oxycodone HCl (Oxycodone 5 Mg Tablet) 10 mg PO Q4H PRN PRN PRN Reason: Pain Score 6-10 Potassium Chloride (Potassium Chloride 20 Meq Tablet) [facility] Last Admin: 12/16/20 19:14 Dose: 20 meq Documented by: Pramipexole Dihydrochloride (Pramipexole Di-Hcl 0.25 Mg Tablet) 0.25 mg PO TID [facility] Last Admin: 12/17/20 04:32 Dose: 0.25 mg Documented by: Promethazine HCl (Promethazine 25 Mg/Ml Syringe) 25 mg IM Q6H PRN PRN PRN Reason: Breakthrough Nausea/Vomiting Sodium Chloride (0.9% Saline Lock 10 Ml Syringe) 10 - 40 ml IV UD PRN PRN Reason: SALINE FLUSH Last Admin: 12/17/20 04:31 Dose: 10 ml Documented by: STROKE Vital Signs/Narrative: Vital Signs Pulse Pulse Ox 12/17/20 07:37 95 12/17/20 07:00 86 Medical Necessity - Tobacco Use Smoking Status: Former smoker Tobacco Use: Cigarettes Assessment/Plan All Active Problems Afib (Acute) CHF (congestive heart failure) (Acute) Bilateral pleural effusion (Acute) Patient is a 80-year-old gentleman who presented with progressive shortness of breath found to be in A. fib with RVR. Checks x-ray demonstrated bilateral pleural effusion admitted to a monitored bed for further management 1. New onset A. fib with RVR ?Duration of patient's A. fib unclear. Patient has had variable rate in the ED started on Cardizem drip admitted to a monitored bed. As part of patient's evaluation ordered 2D echo TSH serial cardiac enzymes and consultation placed to cardiology -12/16/2020; patient was seen in consultation by Dr. Conway with cardiology. Added digoxin to help with heart rate control. Patient was also started on systemic anticoagulation with Eliquis. Patient seen this morning heart rate still remains not well controlled. Subsequently started on amiodarone. -12/17/2020; patient breathing significantly improved. Heart rate relatively controlled. Plan is for patient to be discharged home on amiodarone, Lasix, Eliquis and metoprolol 2. Acute congestive heart failure ?Suspected heart failure with preserved ejection from patient's underlying A. fib. Started on Lasix echo ordered for EF assessment Left ventricular systolic function is normal. The estimated ejection fraction is 60 %. The left atrium is moderately enlarged. Mild concentric left ventricular hypertrophy. Unable to assess diastolic dysfunction due to arrhythmia. Pulmonary artery systolic pressure is 40 mmHg. Small pericardial effusion. 12/16/2020; patient remains on diuretics echo results as above 2. Bilateral pleural effusion ?Do suspect etiology to be CHF. Patient started on Lasix if patient does not respond to Lasix we will proceed to obtain diagnostic and therapeutic thoracocentesis 4. Hypertension - Blood pressure controlled, home medications continued with dose adjustment as needed 5. Seizure disorder ?Patient is on Keppra did continue 6. Severe sepsis ?Secondary to acute cystitis. Patient was not resuscitated with IV fluid in view of his presentation. Patient was in acute congestive heart failure. Started on Rocephin urine culture sent -12/16/2020; cultures pending 7. DVT prophylaxis ?Lovenox Inpatient E&M: 67853 Subs Hosp L2
[2020-12-17 08:32] LABS: Anion Gap 6 (5-15); BUN 15 mg/dL (7-18); BUN/Creat Ratio 21.4 RATIO (10-20); Calcium,Total 8.8 mg/dL (8.5-10.1); Chloride 108 mmol/L (98-107); EST Glomerular Filtration Rate 115 mL/min (>60); Est Glom Filt Rate - Afr Amer 139 mL/min (>60); Estimated Creatinine Clearance 65.74 ml/min; Glucose 107 mg/dL (74-106); Potassium 3.6 mmol/L (3.5-5.1); Sodium Level 141 mmol/L (136-145)
[2020-12-17] MEDS: APIXABAN 5 MG TABLET PO (09:07)
[2020-12-17] MEDS: Multivitamin (Healthy Eyes) Capsule 1 CAP PO ×2 (09:07)
[2020-12-17] MEDS: levETIRAcetam 750 MG Tablet PO (09:08)
[2020-12-17] MEDS: Furosemide 40 MG Tablet PO (09:08)
[2020-12-17] MEDS: Metoprolol Tartrate 25 MG Tablet PO (09:08)
[2020-12-17] MEDS: Ascorbic Acid 500 MG Tablet 1000 MG PO (09:09)
--- NOTE | 2020-12-17 09:25 | RAD_ITS ---
STUDY: X-RAY CHEST REASON FOR EXAM: Male, 80 years old. DYSPNEA, AFIB, CHF TECHNIQUE: Single AP portable view of the chest. COMPARISON: 12/07/2020 FINDINGS: Similar-appearing right lower lobe airspace disease with mild prominent interstitial markings. There is no demonstrated pleural abnormality. Normal size heart. Normal mediastinum and ramon. Normal visualized pulmonary arteries. There is atherosclerotic tortuosity of the aortic arch and descending thoracic aorta. Normal visualized thoracic spine. Normal visualized ribs, clavicles, and shoulders. There is no demonstrated abnormality of the visualized soft tissue structures of the upper abdomen. RAD/Chest 1 View (Portable) IMPRESSION: Findings consistent with continued right lower lobe airspace disease concerning for acute infiltrate in the appropriate clinical setting. Underlying cardiogenic cause and alveolar edema is also a consideration. Electronically Signed: Ramses Ewing DO at 9:56 EST , Service support ,
--- NOTE | 2020-12-17 10:32 | DCINST_ITS ---
- Discharge Diagnoses Current Active Problems: Current Active and Chronic Problems Afib (Acute) CHF (congestive heart failure) (Acute) Bilateral pleural effusion (Acute) Seizure disorder (Chronic) Essential (primary) hypertension (Chronic) You will use the following diet at home:: Cardiac, Fluid restricted (specify 20 00 mls, 1500 mls) - 1500 Your food should be the consistency of: Regular Discharge Activity: Return to Normal Activity Allergies/Adverse Reactions: Allergies No Known Allergies Allergy (Verified 12/15/20 08:58) Medications to take at Discharge Aspirin [Aspirin, Baby] 81 mg PO QHS 11/27/13 Ascorbic Acid [Vitamin C with Marlin Hips] 1,000 mg PO DAILY 12/15/20 Cholecalciferol (VIT D3) [Vitamin D3] 1,000 unit PO DAILY 12/15/20 Levetiracetam [Keppra] 750 mg PO BID 12/15/20 Multivit-Min/FA/Lycopen/Lutein [Centrum Silver Tablet] 1 ea PO DAILY 12/15/20 Ropinirole HCl [Requip] 0.5 mg PO TID 12/15/20 Amiodarone HCl [Cordarone] 200 mg PO BID #120 tab 12/17/20 Apixaban [Eliquis] 5 mg PO BID #120 tab 12/17/20 Furosemide [Lasix] 40 mg PO DAILY #60 tab 12/17/20 Metoprolol Tartrate [Lopressor (beta loli)] 25 mg PO BID #120 tab 12/17/20 Potassium Chloride [K-Dur] 20 meq PO BIDCM #60 tab 12/17/20 The following prescriptions were given: Amiodarone HCl [Cordarone] 200 mg PO BID #120 tab Transmission Status: [facility] to [id number] Apixaban [Eliquis] 5 mg PO BID #120 tab Transmission Status: [facility]ending to [id number] Potassium Chloride [K-Dur] 20 meq PO BIDCM #60 tab Transmission Status: Pending [id number] Furosemide [Lasix] 40 mg PO DAILY #60 tab Transmission Status: [id number] Metoprolol Tartrate [Lopressor (beta loli)] 25 mg PO BID #120 tab Transmission Status: P[id number] Primary Care Physician: Kaiden Durham III, MD [Primary Care Provider] - Please follow up with your Primary Care Physician in: in 1-2 weeks Test Results: Test results from this visit will be discussed in further detail at your follow- up appointment, if applicable. Please Follow Up With: Roopa Conway MD When: in 2-4 weeks Proposed Discharge Date: 12/17/20
--- NOTE | 2020-12-17 10:36 | DS.PCM_ITS ---
Discharge Date and Diagnosis - Problem List Patient Problems: Active and Suspected Problems Afib (Acute) CHF (congestive heart failure) (Acute) Bilateral pleural effusion (Acute) Date of Admission: 12/15/20 Date of Discharge: 12/17/20 - Primary Discharge Diagnosis Acute Problems: Active Problems Afib (Acute) CHF (congestive heart failure) (Acute) Bilateral pleural effusion (Acute) - Secondary Discharge Diagnosis Chronic Problems: Chronic Problems Seizure disorder (Chronic) Essential (primary) hypertension (Chronic) Hospital Course and Treatment Imaging Results: Clinical Impression(s) from Imaging Studies Chest X-Ray 12/15/20 10:00 IMPRESSION: 1. Suspicious right lower lobe pneumonia. 2. Interval development of old fracture deformity of the right humeral head and neck. Electronically Signed: Jack Whittington MD at 10:59 EST , Service support , Chest CTA 12/15/20 10:01 IMPRESSION: 1. No CTA evidence of pulmonary thromboemboli, thoracic aortic aneurysm or dissection. 2. Mild compressive atelectases of the posterior lung bases and minimal groundglass opacity in the right posterior lower lobe. 3. Moderately large right posterior pleural fluid and moderate left posterior pleural fluid. 4. 12 mm thick anterior pericardial fluid. 5. Multiple varying degrees of old compression fractures involving T1, T2, T3, T5, T6, T7, T10 and T11 vertebral bodies. Electronically Signed: Jack Whittington MD at 10:54 EST , Service support , Chest X-Ray 12/17/20 09:25 IMPRESSION: Findings consistent with continued right lower lobe airspace disease concerning for acute infiltrate in the appropriate clinical setting. Underlying cardiogenic cause and alveolar edema is also a consideration. Electronically Signed: Ramses Ewing DO at 9:56 EST , Service support , Summary of Care Provided: Patient is a 80-year-old gentleman who presented with progressive shortness of breath found to be in A. fib with RVR. Checks x-ray demonstrated bilateral pleural effusion admitted to a monitored bed for further management 1. New onset A. fib with RVR ?Duration of patient's A. fib unclear. Patient has had variable rate in the ED started on Cardizem drip admitted to a monitored bed. As part of patient's evaluation ordered 2D echo TSH serial cardiac enzymes and consultation placed to cardiology -12/16/2020; patient was seen in consultation by Dr. Conway with cardiology. Added digoxin to help with heart rate control. Patient was also started on systemic anticoagulation with Eliquis. Patient seen this morning heart rate still remains not well controlled. Subsequently started on amiodarone. -12/17/2020; patient breathing significantly improved. Heart rate relatively controlled. Plan is for patient to be discharged home on amiodarone, Lasix, Eliquis and metoprolol 2. Acute congestive heart failure ?Suspected heart failure with preserved ejection from patient's underlying A. fib. Started on Lasix echo ordered for EF assessment Left ventricular systolic function is normal. The estimated ejection fraction is 60 %. The left atrium is moderately enlarged. Mild concentric left ventricular hypertrophy. Unable to assess diastolic dysfunction due to arrhythmia. Pulmonary artery systolic pressure is 40 mmHg. Small pericardial effusion. 12/16/2020; patient remains on diuretics echo results as above 2. Bilateral pleural effusion ?Do suspect etiology to be CHF. Patient started on Lasix if patient does not respond to Lasix we will proceed to obtain diagnostic and therapeutic thoracocentesis 4. Hypertension - Blood pressure controlled, home medications continued with dose adjustment as needed 5. Seizure disorder ?Patient is on Keppra did continue 6. Severe sepsis ?Secondary to acute cystitis. Patient was not resuscitated with IV fluid in view of his presentation. Patient was in acute congestive heart failure. Started on Rocephin urine culture sent -12/16/2020; cultures pending 7. DVT prophylaxis ?Lovenox Patient Problems: Active and Suspected Problems Afib (Acute) CHF (congestive heart failure) (Acute) Bilateral pleural effusion (Acute) Objective: GENERAL: cooperative HEENT: Atraumatic; EYES; Anicteric, Normal Conjunctiva NECK; supple, normal thyroid, RESPIRATORY: Diminished to auscultation CARDIOVASCULAR: irregular tachycardic GI: soft, normoactive bowel sounds, : No Renal angle tenderness; EXTREMITIES: No edema, no clubbing, MUSCULOSKELETAL: no muscle waisting NEURO: Awake; no lateralizing signs. SKIN: No Rash PSYCH; Flat affect - Physical Exam Vitals/I&O's: Vital Signs Temp Pulse Resp BP Pulse Ox 97.4 F L 83 17 109/84 H 95 12/17/20 09:00 12/17/20 09:08 12/17/20 09:00 12/17/20 09:08 12/17/20 09:00 Oxygen Flow Rate (L/min) 3 Oxygen Delivery Method Nasal Cannula Weight: 84.3 kg Body Mass Index (BMI) 25.2 Intake and Output for Last 24 Hours 12/15/20 12/16/20 12/17/20 23:59 23:59 23:59 Intake Total 787.00 / 797.25 1014.63 / 1031.33 94.36 / 94.36 Output Total 1425 / 1425 600 / 600 375 / 375 Balance -638.00 / -627.75 414.63 / 431.33 -280.64 / -280.64 Microbiology Past 72 Hours 12/15/20 09:04 Blood Culture (Wb) - Anticubital Right Blood Culture - Preliminary No growth in 48 hours. 12/15/20 09:25 Blood Culture (Wb) - Anticubital Left Blood Culture - Preliminary No growth in 48 hours. 12/15/20 10:15 Urine, Clean Catch Urine Culture - Final Mixed Gram Pos & Gram Neg Org Laboratory Results 12/17/20 07:05: WBC 6.1, RBC 4.11 L, Hgb 12.7 L, Hct 39.6 L, MCV 96.4 H, MCH 30.9, MCHC 32.1, RDW Std Deviation 47.6 H, RDW Coeff of Francis 13.4, Plt Count 226, MPV 11.9, Immature Gran % (Auto) 0.300, Neut % (Auto) 61.0, Lymph % (Auto) 19.3, Carlton % (Auto) 13.1 H, Eos % (Auto) 5.8 H, Baso % (Auto) 0.5, Absolute Neuts (auto) 3.7, Absolute Lymphs (auto) 1.17, Nucleated RBC % 0 12/17/20 07:05: Sodium 141, Potassium 3.6, Chloride 108 H, Carbon Dioxide 27.0, Anion Gap 6, BUN 15, Creatinine 0.70, Estim Creat Clear Calc 65.74, Est GFR (MDRD) Af Amer 139, Est GFR (MDRD) Non-Af 115, BUN/Creatinine Ratio 21.4 H, Glucose 107 H, Calcium 8.8 Current Medications Acetaminophen (Acetaminophen 325 Mg Tablet) 650 mg PO Q6H PRN PRN PRN Reason: Pain Score 1-10/Temp > 100.7 F Al Hydroxide/Mg Hydroxide (Mag Hydrox/Al Hydrox/Simeth 30 Ml Udc) 30 ml PO Q6H PRN PRN PRN Reason: Gastric Burning Albuterol Sulfate (Albuterol 2.5 Mg/3 Ml Vial.Neb.) 2.5 mg INHALATION Q2H PRN PRN PRN Reason: SOB/Wheezing Amiodarone HCl (Amiodarone 200 Mg Tablet) 200 mg PO BID [facility] Last Admin: 12/17/20 04:32 Dose: 200 mg Documented by: Apixaban (Apixaban 5 Mg Tablet) 5 mg PO BID [facility] Last Admin: 12/17/20 09:07 Dose: 5 mg Documented by: Ascorbic Acid (Ascorbic Acid 500 Mg Tablet) 1,000 mg PO DAILY [facility] Last Admin: 12/17/20 09:09 Dose: 1,000 mg Documented by: Aspirin (Aspirin 81 Mg Tab.Chew) 81 mg PO QHS [facility] Last Admin: 12/16/20 22:15 Dose: 81 mg Documented by: Cholecalciferol (Cholecalciferol (Vit D3) 1,000 Unit (25mcg)) 1,000 unit PO DAILY [facility] Last Admin: 12/17/20 09:09 Dose: 1,000 unit Documented by: Furosemide (Furosemide 40 Mg Tablet) 40 mg PO DAILY [facility] Last Admin: 12/17/20 09:08 Dose: 40 mg Documented by: Guaifenesin (Guaifenesin 10 Ml Udc (200mg/10ml)) 20 ml PO Q4H PRN PRN PRN Reason: COUGH Levetiracetam (Levetiracetam 750 Mg Tablet) 750 mg PO BID [facility] Last Admin: 12/17/20 09:08 Dose: 750 mg Documented by: Magnesium Hydroxide (Magnesium Hydroxide 30 Ml Udc) 30 ml PO DAILY PRN PRN PRN Reason: Constipation Melatonin (Melatonin 3 Mg Tablet) 3 mg PO QHS PRN PRN PRN Reason: INSOMNIA Metoprolol Tartrate (Metoprolol Tartrate 25 Mg Tablet) 25 mg PO BID [facility] Last Admin: 12/17/20 09:08 Dose: 25 mg Documented by: Multivitamins/Minerals (Multivitamin (Healthy Eyes) Capsule) [facility] Last Admin: 12/17/20 09:07 Dose: 1 capsule Documented by: Nitroglycerin (Nitroglycerin (Inpatient Use) 0.4 Mg Tab.Subl) 0.4 mg SUBLINGUAL Q5M PRN PRN Reason: CARDIAC/CHEST PAIN Ondansetron HCl (Ondansetron 4 Mg/2 Ml Vial) 4 mg IV Q8H PRN PRN PRN Reason: NAUSEA/VOMITING Oxycodone HCl (Oxycodone 5 Mg Tablet) 5 mg PO Q4H PRN PRN PRN Reason: Pain Score 4-5 Oxycodone HCl (Oxycodone 5 Mg Tablet) 10 mg PO Q4H PRN PRN PRN Reason: Pain Score 6-10 Potassium Chloride (Potassium Chloride 20 Meq Tablet) [facility] Last Admin: 12/17/20 09:07 Dose: 20 meq Documented by: Pramipexole Dihydrochloride (Pramipexole Di-Hcl 0.25 Mg Tablet) 0.25 mg PO TID [facility] Last Admin: 12/17/20 04:32 Dose: 0.25 mg Documented by: Promethazine HCl (Promethazine 25 Mg/Ml Syringe) 25 mg IM Q6H PRN PRN PRN Reason: Breakthrough Nausea/Vomiting Sodium Chloride (0.9% Saline Lock 10 Ml Syringe) 10 - 40 ml IV UD PRN PRN Reason: SALINE FLUSH Last Admin: 12/17/20 04:31 Dose: 10 ml Documented by: Discharge Diet: 8 Cup Fluid Restriciton Discharge Activity: Return to Normal Activity Home Medications: Medications to take at Discharge Aspirin [Aspirin, Baby] 81 mg PO QHS 11/27/13 Ascorbic Acid [Vitamin C with Marlin Hips] 1,000 mg PO DAILY 12/15/20 Cholecalciferol (VIT D3) [Vitamin D3] 1,000 unit PO DAILY 12/15/20 Levetiracetam [Keppra] 750 mg PO BID 12/15/20 Multivit-Min/FA/Lycopen/Lutein [Centrum Silver Tablet] 1 ea PO DAILY 12/15/20 Ropinirole HCl [Requip] 0.5 mg PO TID 12/15/20 Amiodarone HCl [Cordarone] 200 mg PO BID #120 tab 12/17/20 Apixaban [Eliquis] 5 mg PO BID #120 tab 12/17/20 Furosemide [Lasix] 40 mg PO DAILY #60 tab 12/17/20 Metoprolol Tartrate [Lopressor (beta loli)] 25 mg PO BID #120 tab 12/17/20 Potassium Chloride [K-Dur] 20 meq PO BIDCM #60 tab 12/17/20 Following Prescriptions Were Given to Patient: Amiodarone HCl [Cordarone] 200 mg PO BID #120 tab Transmission Status: [id number] Apixaban [Eliquis] 5 mg PO BID #120 tab Transmission Status: [id number] Potassium Chloride [K-Dur] 20 meq PO BIDCM #60 tab Transmission Status: [id number] Furosemide [Lasix] 40 mg PO DAILY #60 tab Transmission Status: [id number] Metoprolol Tartrate [Lopressor (beta loli)] 25 mg PO BID #120 tab Transmission Status: [id number] Primary Care Physician: Kaiden Durham III, MD [Primary Care Provider] - Please follow up with your Primary Care Physician in: in 1-2 weeks Please Follow Up With: Roopa Conway MD When: in 2-4 weeks Disposition: Home Minutes spent on discharge:: 35 Patient Condition:: Stable Medical Necessity - Tobacco Use Smoking Status: Former smoker Tobacco Use: Cigarettes Meaningful Use Info Meaningful Use Diagnoses (Choose all that apply): CHF - CHF GISELLA/ARB ordered at discharge?: No Reason GISELLA/ARB not ordered?: Hypotension Documented LVEF (%): 60 Inpatient E&M: 34870 Disch Hosp
--- NOTE | 2020-12-19 15:20 | CASEMGMT ---
Addendum entered by Debbie Tucker 12/20/20 16:14: This RN CM received message that pt's had called back in to speak with this RN CM. Call back to at this time and she states pt is 'doing good' since discharge. states no questions regarding discharge instructions/medications at this time. states that pt has f/u with PCP and cardiology and plans to keep. states no suggestions for [facility] and states 'Everything was great!' voices no further questions/concerns/needs at this time. Helen MARTIN CM Original Note: RN CM Discharge F/U Phone Call LACE: 10 Strata: 3 Discharge date: 12/17/20 Call date: 12/19/20 Call time: 1520 Attempted to reach pt without success at this time, message left for pt to call this RN CM back if/when able. Helen MARTIN CM Admission dx: Afib, CHF
== END 2020-12-17 12:45 | disposition home or self-care (01) | DRG 689 ==
LOC: ED 11:09 → PCU 13:27
PROVIDERS: Admitting Provider Internal Medicine; Emergency Provider Student in an Organized Health Care Education/Training Program; PCP Family Medicine; Visit Provider Internal Medicine
DX: N30.00 Acute cystitis without hematuria (principal); I50.31 Acute diastolic (congestive) heart failure; G40.909 Epilepsy, unspecified, not intractable, without status epilepticus; I48.0 Paroxysmal atrial fibrillation; I25.2 Old myocardial infarction; R09.02 Hypoxemia; I11.0 Hypertensive heart disease with heart failure; Z87.891 Personal history of nicotine dependence
CPT/HCPCS: 36415; 71045; 71275; 80048; 80053; 81001; 83605; 83735; 83880; 84100; 84443; 84484; 85025; 85610; 85730; 87040; 87086; 87088; 87635; 93005; 93306; 99251; 99285; J7030; Q9967; A4216; G0463; J1940; U0002

== ENCOUNTER 2021-01-09 10:34 | Day surgery (SDC) | payer MEDICARE, SELFPAY ==
[2020-12-30 10:19] VITALS: BMI 22.4
[2021-01-05 11:31] LABS: Anion Gap 3 (5-15); BUN 12 mg/dL (7-18); BUN/Creat Ratio 12.6 RATIO (10-20); Calcium,Total 9.1 mg/dL (8.5-10.1); Chloride 107 mmol/L (98-107); Creatinine, Serum 0.95 mg/dL (0.70-1.30); EST Glomerular Filtration Rate 81 mL/min (>60); Est Glom Filt Rate - Afr Amer 98 mL/min (>60); Glucose 102 mg/dL (74-106); Potassium 4.1 mmol/L (3.5-5.1); Sodium Level 139 mmol/L (136-145)
[2021-01-06 10:12] VITALS: BMI 22.4
--- NOTE | 2021-01-09 08:59 | HP_ITS ---
HPI HPI History of Present Illness Details: 80-year-old man with no previous cardiac history other than hypertension who presented to the hospital at the end of November with shortness of breath. He was noted to be in atrial fibrillation with a rapid ventricular response rate and in congestive heart failure. His ejection fraction was noted to be 60% suggesting heart failure with preserved ejection fraction. He was treated with intravenous diltiazem and intravenous Lasix. He was also put on anticoagulation and subsequently discharged on amiodarone, beta-loli and anticoagulation. His shortness of breath has improved and he does not have any dizziness. He does not feel his palpitations. He still however gets short of breath with activity. His physical exam here today demonstrates clear lung lerma irregular rate and rhythm and no pedal edema. Intake Vital Signs 12/30/20 Height 6 ft 3 in 12/30/20 Weight: 179 lb 12/30/20 BMI 22.4 12/30/20 BP 87/64 L 12/30/20 Respiration 16 12/30/20 Pulse 74 12/30/20 Pulse Oximetry (%) 98 Intake Visit Reasons: 2 WK S/P [facility] Allergies No Known Allergies Allergy (Verified 12/15/20 08:58) Medications Aspirin [Aspirin, Baby] 81 mg PO QHS 11/27/13 [History Confirmed 12/30/20] Ascorbic Acid [Vitamin C with Marlin Hips] 1,000 mg PO DAILY 12/15/20 [History Confirmed 12/30/20] Cholecalciferol (VIT D3) [Vitamin D3] 1,000 unit PO DAILY 12/15/20 [History Confirmed 12/30/20] Levetiracetam [Keppra] 750 mg PO BID 12/15/20 [History Confirmed 12/30/20] Multivit-Min/FA/Lycopen/Lutein [Centrum Silver Tablet] 1 ea PO DAILY 12/15/20 [History Confirmed 12/15/20] Ropinirole HCl [Requip] 0.5 mg PO TID 12/15/20 [History Confirmed 12/30/20] Amiodarone HCl [Cordarone] 200 mg PO BID #120 tab 12/17/20 [Rx Confirmed 12/30/20] Apixaban [Eliquis] 5 mg PO BID #120 tab 12/17/20 [Rx Confirmed 12/30/20] Potassium Chloride Oral Tablet [K-Dur] 20 meq PO BIDCM #60 tab 12/17/20 [Rx Confirmed 12/30/20] furosemide 40 mg tablet 40 mg PO DAILY #60 tab 12/30/20 [Rx Confirmed 12/30/20] metoprolol tartrate 25 mg tablet 25 mg PO BID #120 tab 12/30/20 [Rx Confirmed 12/30/20] Ejection fraction %: 60 to 64 PFSH Medical History Acute diastolic (congestive) heart failure (Chronic) Atrial fibrillation with rapid ventricular response (Chronic 12/15/20) Bilateral pleural effusion (Acute) Essential (primary) hypertension (Chronic) Parkinson disease (Chronic) Seizure disorder (Chronic) Family History Other Hypertension Social History (Updated 12/30/20 @ 10:[address] Brady Ferrer MD) Smoking Status: Former smoker ROS Const Const: Negative for fatigue, weakness, headache(s), frequent falls, difficulty sleeping or excessive sweating Eyes Eyes: Negative for loss of peripheral vision, transient loss of vision, blurry vision, double vision or tunnel vision ENT ENT: Negative for headache(s), dizziness, Nosebleed/epistaxis or balance problems Cardio Chest Pain: No Palpitations: No Edema: None Muscle aches with walking: None Resp Respiratory: Positive for SOB with activity and crackles (right base crackles and diminished in left base); negative for SOB at rest, SOB orthopnea\SOB lying down, Cough or paroxysmal nocturnal dyspnea GI GI: Negative nausea, vomiting, heartburn or black,tarry stools : Negative for hematuria Musc Musc: Negative for muscle aches/ myalgia, muscle weakness, joint pain or balance problems Skin Skin: Negative non-healing lesions, rash or unusual bruising Neuro Neuro: Positive for lack of coordination; negative for dizziness, lightheadedness, near syncope, syncope, orthostatic symptoms, frequent falls, headache(s), weakness, blurry vision or double vision Dann Hematologic/Lymphatic: Negative for easy bleeding or easy bruising Endo Endo: Negative for fatigue, excessive sweating or increased thirst/drinking Psych Psych: Negative for anxiety or depression Allergy Allergy/Immunology: Negative for hives, Negative for rash Cardiology Exam Const Appearance: cooperative, healthy appearing, no acute distress, well developed and well groomed Nutritional Appearance: average body habitus and well nourished Orientation: alert, awake and oriented x3 Head Head: normal to inspection, normocephalic and atraumatic Ears: hearing grossly normal bilaterally and external ears normal Nose: external nose normal, nares normal, nasal mucous membranes and turbinates normal, septum normal, no nasal discharge Face and Sinus: face symmetric Mouth: oral mucosae normal, tongue normal, oropharynx normal and moist mucous membranes Teeth and gingiva: dentition normal Throat: posterior oropharynx normal, tonsils normal and uvula midline Eyes General: appearance normal, both eyes and all related structures Eyelids: eyelids normal Conjunctivae: conjunctivae normal Pupils: PERRL, normal by confrontation and accommodation normal EOM: EOM intact bilaterally Neck Neck: normal visual inspection, trachea midline and no JVD JVD: +5 Carotids: normal carotid upstroke and bounding pulses Chest Chest inspection: normal inspection of the chest, symmetric chest movement and normal respiratory effort Auscultation: Bilateral: Clear to Auscultation Cardio Palpation: normal PMI Rate: regular rate Rhythm: irregular rhythm Heart sounds: S1 normal, S2 normal and normal, physiologic split S2; negative rub, gallop or murmur GI GI: normal to inspection, soft, no hepatosplenomegaly and bowel sounds present Neuro General: alert, awake, oriented x3, gait normal, moves all extremities and no focal sensory deficit Skin Skin: no rashes or lesions noted Extremities Pulses: Normal: Right Femoral Pulse, Left Femoral Pulse, Right Dorsalis Pedis Pulse, Left Dorsalis Pedis Pulse, Right Posterior Tibial Pulse, Left Posterior Tibial Pulse, Right Radial Pulse, Left Radial Pulse Lower Extremity Edema: None: Bilateral Musculoskel Musculoskeletal: No joint tenderness Psych Psychological: normal affect Assessment & Plan 1. Atrial fibrillation with rapid ventricular response I48.91 Plan He does have persistent atrial fibrillation now with a controlled ventricular response rate. He however has some heart failure symptoms. I would recommend that we continue the Eliquis and the amiodarone and schedule him for a DC cardioversion in about 10 days. Further recommendations will be made based on the results of that test. Orders Orders: Cardioversion 10 Days Basic Metabolic Profile (BMP) 7 Days 2. Acute diastolic (congestive) heart failure I50.31 Plan He does have evidence of diastolic heart failure with an estimated ejection fraction of 60% and pulmonary artery systolic pressure of 40 mmHg. He will continue with the current dose of diuretic. He would also remain on the beta- loli. Thank you for allowing me to participate in the care of your patient. Please don't hesitate to call if any issues arise. Plan Detail Other Medications Refilled: metoprolol tartrate 25 mg PO BID 120 tabs 4RF furosemide 40 mg PO DAILY 60 tabs 4RF Follow Up 6 Months (jhr) Coding Level of Care Code Off vis,est,level 4 Diagnoses Atrial fibrillation with rapid ventricular response I48.91 Acute diastolic (congestive) heart failure I50.31 Coding Level of Care Code Off vis,est,level 4 Diagnoses Atrial fibrillation with rapid ventricular response I48.91 Acute diastolic (congestive) heart failure I50.31 Supplemental Info Supplemental Information Diagnostics Electrocardiogram 12/15/20 Echocardiogram 12/15/20 Chest X-Ray 12/17/20
--- NOTE | 2021-01-09 12:17 | CARDIOVERS ---
Cardioversion Cardioversion: DC cardioversion. 80-year-old man with a history of atrial fibrillation flutter on anticoagulation. Patient here for elective DC cardioversion. The patient was seen by Dr. Deluca of the critical care division. Patient has been compliant with his medications. Informed consent was obtained. Anterior-posterior pads were applied. 200 J of synchronized DC cardioversion energy were applied after the patient was administered 40 mg of intravenous propofol. Patient promptly reverted back to sinus rhythm. Patient tolerated the procedure well. Conclusion: Successful DC cardioversion from atrial fibrillation flutter to sinus rhythm. Continue current medications Follow-up per office protocol.
--- NOTE | 2021-01-09 13:11 | PCM.OP.PRO ---
Procedure Report Date of Procedure: 01/09/21 CONSCIOUS SEDATION REPORT DATE OF SERVICE: January 09, 2021 BRIEF HISTORY OF PRESENT ILLNESS: The patient is a 80-year-old male who presented to [facility] for an elective outpatient cardioversion due to underlying atrial fibrillation. The patient has never previously undergone a prior cardioversion. He denies any prior anesthetic complications. His last surface echocardiogram revealed an ejection fraction of approximately 60%. He is systemically anticoagulated on Eliquis. The patient is a former smoker, having quit completely 5 years ago. He has never been formally diagnosed with COPD. 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 PHYSICAL EXAMINATION: VITAL SIGNS: Reviewed and were acceptable. GENERAL: The patient is a male, in no apparent distress, speaking in full sentences. HEENT: Normocephalic, atraumatic. Mucous membranes are moist and pink. Good mouth opening noted. Trachea is midline. CHEST: S1, S2 irregularly irregular. No murmurs, rubs or gallops were noted. LUNGS: Clear to auscultation bilaterally without appreciable wheezes, rales or rhonchi. ABDOMEN: Soft, nontender, nondistended. Positive bowel sounds. EXTREMITIES: There is no clubbing, cyanosis or edema. ASA Class: II DESCRIPTION OF PROCEDURE: After confirmation of informed consent, the patient's anesthesia plan was reviewed in detail. Propofol was chosen. Risks and benefits were reviewed and the patient agreed to proceed. At 1204, the patient was given 40 mg of propofol. The patient achieved an appropriate level of sedation and was given a 200 joule synchronized cardioversion by Dr. Ferrer at the bedside. This was successful in achieving normal sinus rhythm. The patient was monitored until 1215, at which time he reached his baseline mental status and function. The patient tolerated the procedure well. COMPLICATIONS: None ESTIMATED BLOOD LOSS: None RECOMMENDATIONS: Okay to recover in usual fashion. [id number]: Other Procedure See Report - [id number]
== END 2021-01-09 13:10 | disposition home or self-care (01) ==
LOC: CLSP 10:35
PROVIDERS: PCP Family Medicine; Referring Provider Internal Medicine Cardiovascular Disease; Visit Provider Internal Medicine Cardiovascular Disease
DX: I48.19 Other persistent atrial fibrillation (principal); I11.0 Hypertensive heart disease with heart failure; G20 Parkinson's disease; G40.909 Epilepsy, unspecified, not intractable, without status epilepticus; I50.32 Chronic diastolic (congestive) heart failure; Z87.891 Personal history of nicotine dependence; Z79.899 Other long term (current) drug therapy; Z79.01 Long term (current) use of anticoagulants; Z79.82 Long term (current) use of aspirin; G47.33 Obstructive sleep apnea (adult) (pediatric)
CPT/HCPCS: 36415; 80048; 92960; 93005; J7040

== ENCOUNTER → 2021-07-06 13:36 | Outpatient (CLI) | payer MEDICARE, SELFPAY ==
[2021-07-06 14:09] LABS: Absolute Lymphocyte Count 1.82 X10^3/uL (0.83-4.51); Absolute Neutrophil Count 5.2 X10^3/uL (2.0-7.7); Basophil# 0.04 X10^3/uL; Basophil% 0.5 % (0-1); Eosinophil# 0.18 X10^3/uL; Eosinophils% 2.2 % (0-5); Hemoglobin 15.6 g/dL (13.0-16.5); Lymphocyte # 1.82 X10^3/ul (0.83-4.51); Lymphocyte % 21.8 % (19-41); Mean Corp Hgb Conc 33.2 g/dL (32-36); Mean Corpuscular Volume 96.3 fL (80-94); Mean Platelet Vol. 11.7 fl (6.2-12.0); Monocyte# 1.05 X10^3/uL; Monocyte% 12.6 % (0-10); NRBC Flagged by Analyzer 0 % (0-5); Neutrophil # 5.21 X10^3/uL (2.7-7.7); Neutrophil % 62.3 % (47-70); Platelet Count 252 K/mm3 (150-450); RBC Distribution Width CV 12.5 % (11.6-14.6); RBC Distribution Width SD 44.4 fl (35.1-43.9); Red Blood Count 4.88 M/mm3 (4.6-6.2); White Blood Count 8.4 K/mm3 (4.4-11.0)
[2021-07-06 14:48] LABS: Anion Gap 5 (5-15); BUN 13 mg/dL (7-18); BUN/Creat Ratio 14.8 RATIO (10-20); Calcium,Total 9.2 mg/dL (8.5-10.1); Chloride 107 mmol/L (98-107); Creatinine, Serum 0.88 mg/dL (0.70-1.30); EST Glomerular Filtration Rate 89 mL/min (>60); Est Glom Filt Rate - Afr Amer 107 mL/min (>60); Glucose 102 mg/dL (74-106); Potassium 3.9 mmol/L (3.5-5.1); Sodium Level 138 mmol/L (136-145); T4 Free Direct 1.27 ng/dL (0.76-1.46)
== END ==
PROVIDERS: Referring Provider Nurse Practitioner Family; Visit Provider Nurse Practitioner Family
DX: I10 Essential (primary) hypertension (principal); I48.19 Other persistent atrial fibrillation; Z79.899 Other long term (current) drug therapy
CPT/HCPCS: 36415; 80048; 84439; 84443; 85025

== ENCOUNTER → 2021-09-19 11:29 | Outpatient (CLI) | payer MEDICARE, SELFPAY ==
[2021-09-19 12:11] LABS: PSA,Total- Diagnostic 0.86 ng/mL (0.0-4.0)
== END ==
PROVIDERS: Referring Provider Radiology Radiation Oncology; Visit Provider Radiology Radiation Oncology
DX: Z85.46 Personal history of malignant neoplasm of prostate (principal)
CPT/HCPCS: 36415; 84153

== ENCOUNTER 2022-04-22 23:48 | Observation (INO) | payer MEDICARE, SELFPAY ==
[2022-04-22 23:49] VITALS: BP 180/89; PULSE 60; RESP 18; TEMP 36.4; O2SAT 95; BMI 28.2
[2022-04-23] VITALS (15 sets, daily range): BP systolic 95–183; BP diastolic 70–88; PULSE 54–66; RESP 16–18; TEMP 36.6–36.8; O2SAT 93–99; BMI 27.2
--- NOTE | 2022-04-23 00:20 | EDS_ITS ---
HPI History of Present Illness Chief Complaint: Overdose Informant: patient and family Onset/Context/Timing Onset: Today Context: Sudden Onset Timing: Continuous Worsened by: Nothing Relieved by: Nothing Narrative Narrative: Patient presents after taking an overdose of levothyroxine this morning. Patient states he took a whole bottle of levothyroxine 25 mcg tablets at approximately 7:30 AM today. normally puts his daily medications in a pill bottle without a label on it and he normally takes those every morning. Patient grabbed the wrong bottle this morning and took the rest of the bottle of his levothyroxine except for 4 tablets. Patient had his medication filled with 90 tablets on 03/20/2022. Therefore, patient took approximately 52 tablets today. Patient denies any suicidal homicidal ideations. Patient denies any symptoms. Patient denies any fevers or chills. [facility] Medical History (Updated 04/23/22 @ 02:[address] Alejandro Loredo DO) Acute diastolic (congestive) heart failure Atrial fibrillation with rapid ventricular response (12/15/20) Bilateral pleural effusion COPD (chronic obstructive pulmonary disease) Essential (primary) hypertension History of CVA (cerebrovascular accident) Parkinson disease Paroxysmal atrial fibrillation Seizure disorder Home Medications cholecalciferol (vitamin D3) 1,000 unit PO DAILY 12/15/20 [History Last Taken 12/15/20] levetiracetam 750 mg PO BID 12/15/20 [History Last Taken 01/09/21] decxrekt-bfx-HI-lycopen-lutein 1 ea PO DAILY 12/15/20 [History Last Taken 12/15/20] metoprolol tartrate 25 mg tablet 25 mg PO BID #60 tab 01/29/22 [Rx Last Taken Unknown] amiodarone 200 mg tablet 200 mg PO DAILY #90 tablet 02/12/22 [Rx Last Taken Unknown] levothyroxine 25 mcg tablet 25 mcg PO DAILY tab 03/01/22 [History Last Taken Unknown] ropinirole 1 mg tablet 1 mg PO TID tab 03/01/22 [History Last Taken Unknown] Allergy/AdvReac Type Severity Reaction Status Date / Time No Known Allergies Allergy Verified 07/06/21 12:57 Family History Other Hypertension Surgical History History of cardioversion (01/09/21) Social History Smoking Status: Former smoker ROS ROS ED Constitutional Constitutional ED: Denies chills or fever(s) Eyes Eyes: Denies blurry vision or change in vision ENT ENT ED: Denies rhinorrhea or sore throat Cardiovascular Cardiovascular: Denies chest pain or palpitations Respiratory/Chest Respiratory/Chest: Denies cough or dyspnea Gastrointestinal Gastrointestinal: Denies nausea or vomiting Genitourinary Genitourinary ED: Denies dysuria or hematuria Musculoskeletal Musculoskeletal: Denies back pain or neck pain Integumentary Reports rash; Denies abscess Neurologic Neurologic: Denies headache(s) or weakness Allergic/Immunologic Allergic/Immunologic ED: Denies mouth swelling or urticaria EXAM Physical Exam Const Vital Signs: 04/22/22 23:49 04/22/22 23:59 04/23/22 01:23 Temperature 97.5 F L Temperature Source Oral Pulse Rate 60 56 L Respiratory Rate 18 16 Respiratory Effort Normal Respiratory Pattern Normal Blood Pressure 180/89 H 95/73 Blood Pressure Mean 119 80 Pulse Ox 95 95 Oxygen Delivery Method Room Air Room Air Positive well nourished and well developed General Appearance ED: well developed and NAD HEENT Reports moist mucous membranes Neck supple and no JVD Resp normal respiratory effort and clear to auscultation bilaterally Cardio regular rate, regular rhythm and no murmurs GI normal to inspection, nondistended, normoactive bowel sounds and non-tender Palpation: soft Extremity normal to inspection General Extremety ED: Negative for edema or tenderness General Extremity: Negative for edema Neuro oriented x3, CN's II-XII intact bilaterally and no sensory deficits noted Sensorium / Orientation: alert Motor Exam: strength 5/5 throughout Psych mental status grossly normal Skin no rashes or lesions noted MDM MDM MDM Narrative Medical decision making narrative: EKG was obtained. On my interpretation, it showed a normal sinus rhythm with a rate of 58. [place] interval, QRS interval, and QTc intervals were all normal. [place] was normal. There are no acute ST or T wave changes. Portable chest x-ray was obtained. There is 1 view. On my interpretation, there is left basilar atelectasis. There is no acute cardiopulmonary process. Bony thorax is normal. There is no cardiomegaly. Radiologist also interpreted the x-ray and agrees. CBC was within normal limits. Comprehensive metabolic profile was obtained and was essentially within normal limits. High-sensitivity troponin was elevated at 198. TSH was normal at 3.51. Case was discussed with poison control. He recommended having the pa tient and family watch for any fever, agitation, tachycardia, or other signs of thyroid storm. He did not feel it was a toxic dose. Because of the elevated troponin, patient was given aspirin here. 2-hour repeat troponin was ordered. Case was discussed with the hospitalist. She will admit the patient to her service. Patient and family understood and were agreeable with the plan. All questions were answered. Lab Data Attestation: I reviewed the patient's lab results. Labs: Laboratory Results - last 24 hr 04/23/22 04/23/22 00:38 00:38 WBC 5.6 RBC 4.67 Hgb 14.5 Hct 44.8 MCV 95.9 H MCH 31.0 MCHC 32.4 RDW Std Deviation 44.3 H RDW Coeff of Francis 12.7 Plt Count 167 MPV 11.0 Immature Gran % (Auto) 0.400 Neut % (Auto) 64.1 Lymph % (Auto) 16.3 L [place] % (Auto) 15.7 H Eos % (Auto) 3.0 Baso % (Auto) 0.5 Absolute Neuts (auto) 3.6 Absolute Lymphs (auto) 0.91 Nucleated RBC % 0 Sodium 140 Potassium 3.7 Chloride 108 H Carbon Dioxide 28.0 Anion Gap 4 L BUN 12 Creatinine 0.93 Estim Creat Clear Calc 69.53 Est GFR (MDRD) Af Amer 100 Est GFR (MDRD) Non-Af 83 BUN/Creatinine Ratio 12.9 Glucose 145 H Calcium 8.7 Total Bilirubin 0.20 AST 25 ALT 41 Alkaline Phosphatase 91 Troponin I High Sens 198 H* Total Protein 6.9 Albumin 3.3 Globulin 3.6 Albumin/Globulin Ratio 0.9 TSH 3.51 Radiography Chest X-Ray - ED: 1 View, Read by ED Physician, Read by Radiologist and No Acute Disease Diagnostic Testing: Clinical Impression(s) from Imaging Studies Chest X-Ray 04/23/22 00:45 IMPRESSION: Interval resolution of right lower lobe airspace disease since 12/17/2020. Limited degree of inspiration with left basilar atelectasis. No pneumonia or pulmonary edema. Electronically Signed: Jose Elias Fischer MD at 1:40 EDT , Discharge Plan Dx/Rx/DC Orders Clinical Impression: Elevated troponin, Accidental overdose of levothyroxine Disposition Disposition: Acute Care Hospital [facility]
--- NOTE | 2022-04-23 00:25 | EKG12_ITS ---
Test Reason : OD Blood Pressure : / mmHG Vent. Rate : 058 BPM Atrial Rate : 058 BPM P-R Int : 208 ms QRS Dur : 090 ms QT Int : 472 ms P-R-T Axes : 075 072 075 degrees QTc Int : 463 ms Sinus bradycardia Otherwise normal ECG Confirmed by JOSE E BAUER, REILLY ([id number]), web content editor SONIYA BARRETT ([id number]) on 04/24/2022 1:28:27 PM Referred By: Fadumo Perez Confirmed By:REILLY DORANTES MD
--- NOTE | 2022-04-23 00:45 | RAD_ITS ---
STUDY: X-RAY CHEST REASON FOR EXAM: Male, 81 years old. Overdose TECHNIQUE: Single AP portable view of the chest. 12:44 AM COMPARISON: Previous chest radiograph of 12/17/2020. FINDINGS: Lesser degree of inspiration with crowding of the basilar bronchovascular markings. Minimal discoid atelectasis in the left lower lung. The previously noted right lower lobe airspace disease has resolved. There is no demonstrated pleural abnormality. Normal size heart. Normal mediastinum and ramon. Normal visualized pulmonary arteries. Stable moderate elongation and calcification of the aortic arch. No acute osseous abnormality. There is no demonstrated abnormality of the visualized soft tissue structures of the upper abdomen. Surgical clips in the upper abdomen. RAD/Chest 1 View (Portable) IMPRESSION: Interval resolution of right lower lobe airspace disease since 12/17/2020. Limited degree of inspiration with left basilar atelectasis. No pneumonia or pulmonary edema. Electronically Signed: Jose Elias Fischer MD at 1:40 EDT ,
[2022-04-23 00:49] LABS: Absolute Lymphocyte Count 0.91 X10^3/uL (0.83-4.51); Absolute Neutrophil Count 3.6 X10^3/uL (2.0-7.7); Basophil# 0.03 X10^3/uL; Basophil% 0.5 % (0-1); Eosinophil# 0.17 X10^3/uL; Hematocrit 44.8 % (40-54); Hemoglobin 14.5 g/dL (13.0-16.5); Lymphocyte # 0.91 X10^3/ul (0.83-4.51); Lymphocyte % 16.3 % (19-41); Mean Corp Hgb Conc 32.4 g/dL (32-36); Mean Corpuscular Volume 95.9 fL (80-94); Monocyte# 0.88 X10^3/uL; Monocyte% 15.7 % (0-10); NRBC Flagged by Analyzer 0 % (0-5); Neutrophil # 3.59 X10^3/uL (2.7-7.7); Neutrophil % 64.1 % (47-70); Platelet Count 167 K/mm3 (150-450); RBC Distribution Width CV 12.7 % (11.6-14.6); RBC Distribution Width SD 44.3 fl (35.1-43.9); Red Blood Count 4.67 M/mm3 (4.6-6.2); White Blood Count 5.6 K/mm3 (4.4-11.0)
[2022-04-23 01:15] LABS: ALB/GLOB Ratio 0.9 RATIO (0.9-2.4); AST(SGOT) 25 U/L (15-37); Alanine Aminotransfer ALT/SGPT 41 U/L (16-61); Albumin, Serum 3.3 g/dL (3.2-5.0); Alkaline Phosphatase 91 U/L (45-117); Anion Gap 4 (5-15); BUN 12 mg/dL (7-18); BUN/Creat Ratio 12.9 RATIO (10-20); Calcium,Total 8.7 mg/dL (8.5-10.1); Chloride 108 mmol/L (98-107); Creatinine, Serum 0.93 mg/dL (0.70-1.30); EST Glomerular Filtration Rate 83 mL/min (>60); Est Glom Filt Rate - Afr Amer 100 mL/min (>60); Estimated Creatinine Clearance 69.53 ml/min; Globulin 3.6 g/dL (2.2-4.2); Glucose 145 mg/dL (74-106); Potassium 3.7 mmol/L (3.5-5.1); Protein, Total 6.9 g/dL (6.4-8.2); Sodium Level 140 mmol/L (136-145); Thyroid Stim Hormone (TSH) 3.51 uIU/mL (0.358-3.74); Troponin-I HS 198 pg/mL (3.0-78.0)
[2022-04-23] MEDS: Aspirin 81 MG TAB.CHEW 324 MG PO (01:26)
--- NOTE | 2022-04-23 02:33 | HP.PCM.HOS_ITS ---
HPI - General General Date of Admission: 04/23/22 Date of Service: 04/23/22 Chief Complaint: Levothyroxine accidental OD HPI Narrative The patient is an 81 y/o M w/ PMHx: Hx of notable ex lap for potentially partial gastrectomy for gastric ulcer, esophageal diversion but unclear, Hx CVA, Diastolic CHF, PAF, COPD, HTN, HLD, Seizure disorder, Parkinson's disease, Hypothyroidism, Former tobacco use who presents to the [facility] ED on 04/23/22 with history of suspected overdose of levothyroxine earlier in the day in the morning with purportedly a whole bottle of levothyroxine with 25 mcg tablets taken at approximately 7:30 AM noting that the normally places his medications in a pill bottle without a label on it and he normally takes those however he actually grabbed the wrong bottle and took the rest of his levothyroxine except for 4 tablets left in the bottle was last filled 03/20/2022 therefore patient ingested approximately 52 tablets prompting family to bring the patient in for evaluation. Patient remains completely asymptomatic and denies any complaints. He actually reports feeling well and having a lot more energey than his normal baseline. He has remained his baseline self per his spouse. Work-up in the ED included T97.5, heart rate 60, BP initially 180/89 with most recent repeat 95/73, respiratory rate 16, 95% on room air, CBC with WC 5.6, hemoglobin 14.5, platelet 167 without marked shift, CMP with chloride 108, glucose 145 otherwise hepatic profile unremarkable, TSH 3.51, troponin 198, chest x-ray interval resolution right lower lobe airspace disease 12/17/2020, limited degree inspiration with left basilar atelectasis otherwise no acute cardiopulmonary findings, EKG SR without acute evidence of ischemia. In the ED patient administered ASA 324 mg po x 1. Per Poison control they were less concerned about significant overdose adverse effects given only 1.3 mg, noted usually more concerned if > 4 mg. [facility] Medical History (Updated 04/23/22 @ 02:[address] Alejandro Loredo, ) Acute diastolic (congestive) heart failure Atrial fibrillation with rapid ventricular response (12/15/20) Bilateral pleural effusion COPD (chronic obstructive pulmonary disease) Essential (primary) hypertension History of CVA (cerebrovascular accident) Parkinson disease Paroxysmal atrial fibrillation Seizure disorder Home Medications cholecalciferol (vitamin D3) 1,000 unit PO DAILY 12/15/20 [History Last Taken 12/15/20] levetiracetam 750 mg PO BID 12/15/20 [History Last Taken 01/09/21] wjveyefx-zdg-NS-lycopen-lutein 1 ea PO DAILY 12/15/20 [History Last Taken 12/15/20] metoprolol tartrate 25 mg tablet 25 mg PO BID #60 tab 01/29/22 [Rx Last Taken Unknown] amiodarone 200 mg tablet 200 mg PO DAILY #90 tablet 02/12/22 [Rx Last Taken Unknown] levothyroxine 25 mcg tablet 25 mcg PO DAILY tab 03/01/22 [History Last Taken Unknown] ropinirole 1 mg tablet 1 mg PO TID tab 03/01/22 [History Last Taken Unknown] Allergy/AdvReac Type Severity Reaction Status Date / Time No Known Allergies Allergy Verified 07/06/21 12:57 Family History (Updated 04/23/22 @ 02:[address] Fadumo Perez MD) Father Hypertension Mother Parkinsons disease Surgical History (Updated 04/23/22 @ 02:[address] Fadumo Perez MD) History of cardioversion (01/09/21) S/P appendectomy S/P cholecystectomy S/P exploratory laparotomy Social History (Updated 04/23/22 @ 02:[address] Fadumo Perez MD) household members: spouse Smoking Status: Former smoker how long ago did patient quit smoking: Quite remotely, but did smoke again x 1 month in 2020 but has since quit. alcohol intake: never substance use type: does not use ROS ROS Narrative Admission Review of Systems: CONSTITUTIONAL: No weight loss, fever, chills, weakness or fatigue. + Increased energy, hyperactivity. HEENT: Eyes: No visual loss, blurred vision, double vision or yellow sclerae. Ears, Nose, Throat: No hearing loss, sneezing, congestion, runny nose or sore throat. SKIN: No rash or itching, lesions, wounds. CARDIOVASCULAR: No chest pain, chest pressure or chest discomfort, palpitations, edema, orthopnea, syncopal events. RESPIRATORY: No shortness of breath, cough or sputum, wheezing, hemoptysis. GASTROINTESTINAL: No anorexia, nausea, vomiting or diarrhea, abdominal pain, melena, BRBPR. GENITOURINARY: No dysuria, frequency, urgency or retention. NEUROLOGICAL: + Parkinson's disease, seizure disorder, No headache, dizziness, syncope, paralysis, ataxia, numbness or tingling in the extremities, change in bowel or bladder control. MUSCULOSKELETAL: + muscle, back pain, joint pain or stiffness. HEMATOLOGIC: No anemia, bleeding or bruising. LYMPHATICS: No enlarged nodes. No history of splenectomy. PSYCHIATRIC: No history of depression or anxiety. ENDOCRINOLOGIC: No reports of sweating, cold or heat intolerance. No polyuria or polydipsia. ALLERGIES: No history of asthma, hives, eczema or rhinitis. Vital Signs Vital Signs Vital Signs: 04/22/22 23:49 04/22/22 23:59 04/23/22 01:23 Temperature 97.5 F L Temperature Source Oral Pulse Rate 60 56 L Respiratory Rate 18 16 Respiratory Effort Normal Respiratory Pattern Normal Blood Pressure 180/89 H 95/73 Blood Pressure Mean 119 80 Pulse Ox 95 95 Oxygen Delivery Method Room Air Room Air Weight Weight: 208 lb 5.389 oz Body Mass Index (BMI) 28.2 Physical Exam Narrative Physical Examination: General: Awake, alert, oriented x 3 and cooperative, seated upright in the ED bed in no apparent distress, notes feeling well, more energy than normal. Skin: Normal color, normal turgor, no icterus, no cyanosis. HEENT: AT/NC, EOMI, PERRLA, MMM, no carotid bruits or JVD noted. Lungs: CTA bilaterally, moderate effort, mild decrease BL bases, no rales, ronchi or wheezing. Heart: Currently mildly bradycardic with regular rhythm; no gallop, rub audible. Abdomen: Soft, NTTP, chronic mild distention, notable abdominal ex lap scar, mildly hyperactive BS, no HSM. Extremities: No cyanosis, clubbing, or edema. Neurological: Patient awake, alert, oriented as noted, cognitive function appears intact with underlying Parkinson's disease; pupils equally reactive to light and accommodation, cranial nerves II-XII grossly normal, moving all 4 extremities, no focal deficits, strength mildly decreased baseline, despite this reports having more energy and moving with ease currently. Psychiatric: Affect appears normal, interactive, no acute evidence of depressive or anxiety feelings. Results Lab / Micro Data Result Diagrams: 04/23/22 00:38 04/23/22 00:38 Labs: Laboratory Results - last 24 hr 04/23/22 00:38: WBC 5.6, RBC 4.67, Hgb 14.5, Hct 44.8, MCV 95.9 H, MCH 31.0, MCHC 32.4, RDW Std Deviation 44.3 H, RDW Coeff of Francis 12.7, Plt Count 167, MPV 11.0, Immature Gran % (Auto) 0.400, Neut % (Auto) 64.1, Lymph % (Auto) 16.3 L, [place] % (Auto) 15.7 H, Eos % (Auto) 3.0, Baso % (Auto) 0.5, Absolute Neuts (auto) 3.6, Absolute Lymphs (auto) 0.91, Nucleated RBC % 0 04/23/22 00:38: Sodium 140, Potassium 3.7, Chloride 108 H, Carbon Dioxide 28.0, Anion Gap 4 L, BUN 12, Creatinine 0.93, Estim Creat Clear Calc 69.53, Est GFR (MDRD) Af Amer 100, Est GFR (MDRD) Non-Af 83, BUN/Creatinine Ratio 12.9, Glucose 145 H, Calcium 8.7, Total Bilirubin 0.20, AST 25, ALT 41, Alkaline Phosphatase 91, Troponin I High Sens 198 H*, Total Protein 6.9, Albumin 3.3, Globulin 3.6, Albumin/Globulin Ratio 0.9, TSH 3.51 Radiology Impression Chest X-Ray 04/23/22 00:45 IMPRESSION: Interval resolution of right lower lobe airspace disease since 12/17/2020. Limited degree of inspiration with left basilar atelectasis. No pneumonia or pulmonary edema. Electronically Signed: Jose Elias Fischer MD at 1:40 EDT , Assessment & Plan Assessment/Plan (1) Accidental overdose of levothyroxine: (2) Elevated troponin: PLAN: The patient is an 81 y/o M w/ PMHx: Hx CVA, Diastolic CHF, PAF, COPD, HTN, HLD, Seizure disorder, Parkinson's disease, Hypothyroidism, Former to bacco use who presents to the [facility] ED on 04/23/22 with history of suspected overdose of levothyroxine earlier in the day in the morning with purportedly a whole bottle of levothyroxine with 25 mcg tablets taken at approximately 7:30 AM noting that the normally places his medications in a pill bottle without a label on it and he normally takes those however he actually grabbed the wrong bottle and took the rest of his levothyroxine except for 4 tablets left in the bottle was last filled 03/20/2022 therefore patient ingested approximately 52 tablets prompting family to bring the patient in for evaluation with patient since intake remaining asymptomatic. #1. Hypothyroidism with levothyroxine overdose: Accidental levothyroxine overdose although not signficant per Poison control (would be concerned if 4 mg or more, currently he is at 1.3 mg), patient with prolonged history of usage amiodarone of note, TSH normal, will to the PCU, maintain on telemetry monitoring to assure no cardiac arrhythmias, monitor for any onset cardiac overload, continue to cycle cardiac enzymes, treat elevated blood pressures, treat any onset GI symptoms and monitor for liver function rise as well as potentially labile behavioral activity, maintain on fall and aspiration precautions. PT/OT/case management consulted. #2. Elevated cardiac enzyme, suspect related to #1, in this setting likely NSTEMI type II demand: EKG in ED w/ SR without acute evidence of ischemia, CXR w/ no acute cardiopulmonary findings, improved from last taken. Trop elevated, 198. Will as noted above maintain on a monitored bed, continue serial cardiac enzymes and EKGs. Obtain magnesium level upon admission. Start Heparin drip and de-escalate pending enzyme trending. Continue medical management w/ asa, metoprolol with hold parameters, not on statin therapy likely secondary to age, FLP in AM. Pending enzyme trending if rises upward and telemetry monitoring low threshold to involve cardiology. ECHO requested. ASA, NG, morphine. #3. Hyperglycemia: Admission glucose 145, suspect likely secondary to #1 as patients can commonly have worsened glycemic control in the setting of overdose however be cautious will obtain A1c. Even if HgbA1c is not marked if consistent elevated BS noted my need to add AC/HS with ISS temporarily but will continue to monitor in the interim until trend clear. #4. PAF: s/p DCCV 01/09/2021, we will continue patient on telemetry as noted especially given potential cardiac arrhythmia lowered threshold secondary to #1, continue metoprolol as well as amiodarone cautiously in the setting, maintain on heparin drip. #5. Chronic diastolic CHF: We will very closely monitor and judiciously hydrate given #1 with potential propensity to become overloaded, continue aspirin, metoprolol, not on statin therapy nor GISELLA inhibitor/ARB. Baseline BNP requested. #6. Hypertension: Continue home regimen including metoprolol, PRN hydralazine. #7. Hyperlipidemia: On statin therapy, FLP in a.m. #8. Chronic COPD: Not on any routine inhalers, will defer any ATC DuoNeb therapies given propensity for potential A. fib RVR given #1, will have as needed albuterol if absolutely necessary, encourage head of bed and I-S. #9. Parkinson's disease: Complicates presentation, maintain on fall precautions, continue Requip home regimen, therapies and case management consulted as noted. #10. Seizure disorder: We will continue patient home Keppra regimen with level requested. #11. Hx Prior CVA: From review of records, prior MRI imaging had noted CVA specifically an acute infarct in the left peritrigonal white matter without mass-effect and small chronic appearing lacunar infarcts in the right caudate nucleus, right hypothalamic and bilateral cerebellar hemispheres and most recent head imaging 06/24/[address] brain with evidence of old left basal ganglia lacunar infarct. We will continue aspirin, hypertensive regimen cautiously, not on statin therapy possibly secondary to advanced age. #12. GERD with history of gastric ulcer requiring emergent surgery: Patient with significant abdominal scar with per description likely ex lap secondary to suspected severe gastric ulcer requiring partial gastrectomy and diversion of the esophagus but requested that bring in what ever paperwork she have so this may be accurately updated. #13. DVT prophylaxis: SCDs, maintain on heparin drip as noted. #14. CODE status: Patient LEVI is his daughter who is present and living will is currently in place. Discussed CODE status at length including difference between FULL code, DNR-CCA and DNR-CC status. Following discussions about the differences in these status, requested DNR-CCA, no intubation status. Advanced Care Planning Face to Face Time: 16 minutes. Charges/Coding Visit Charges Inpatient E&M: 02041 Init Hosp L3 Procedures Hospitalists Procedures: 71822 Advncd Care Plan 30 Min
[2022-04-23 02:49] LABS: Magnesium 1.8 mg/dL (1.6-2.6)
[2022-04-23 02:52] LABS: Troponin-I HS 193 pg/mL (3.0-78.0)
[2022-04-23 02:54] LABS: International Normalized Ratio 1.1; Prothrombin Time (Protime)PT. 14.1 SECONDS (11.7-14.9)
[2022-04-23 02:56] LABS: Partial Thromboplast Time 32.8 Seconds (24.1-36.2)
[2022-04-23 03:02] LABS: BNP,B-Type NATRIURETIC PEPTIDE 101.2 pg/mL (0-100)
--- NOTE | 2022-04-23 03:10 | ECHOD_ITS ---
Reason For Study: NSTEMI Procedure This was a 2D Doppler, Color Flow transthoracic echocardiogram. Exam performed portable in patient room. Left Ventricle Normal LV size. Left ventricular systolic function is normal. The estimated ejection fraction is 60 %. Stage 2 diastolic dysfunction. No regional wall motion abnormalities noted. Right Ventricle Normal RV size. Normal systolic function. Atria The left atrium is mildly enlarged. Normal right atrium. Mitral Valve Normal mitral valve. Mild (1+) eccentric mitral valve insufficiency. Tricuspid Valve Normal tricuspid valve. Mild (1+) tricuspid valve insufficiency. Pulmonary artery systolic pressure is 55 mmHg. Aortic Valve Normal aortic valve. Trisinus/trileaflet aortic valve. Pulmonic Valve Normal pulmonic valve. Great Vessels Normal aortic root. The pulmonary artery is normal size. Normal inferior vena cava. Pericardium/Pleural No pericardial effusion. MMode/2D Measurements & Calculations LVIDd: 4.6 cm IVSd: 1.1 cm LA dimension: 4.6 cm LVIDs: 2.9 cm LVPWd: 1.2 cm RVDd: 4.1 cm FS: 36.8 % LAV(MOD-bp): 91.1 ml LA A4 area: 23.7 cm2 RA A4 area: 17.0 cm2 LAV(MOD-bp) Indexed: 48.0 ml/m2 LAV(MOD-sp2): 93.1 ml LAV(MOD-sp4): 79.1 ml Time Measurements MV dec time: 0.34 sec Doppler Measurements & Calculations MV E max jose: 122.9 cm/sec Lat Peak E' Jose: 8.0 cm/sec Med Peak E' Jose: 5.0 cm/sec MV A max jose: 126.7 cm/sec E/E' lat: 15.4 E/E' med: 24.7 MV E/A: 0.97 MV V2 max: 141.6 cm/sec MV P1/2t max jose: 137.1 cm/sec Ao V2 max: 115.5 cm/sec MV max P.0 mmHg MV P1/2t: 96.1 msec Ao max P.3 mmHg MV V2 mean: 82.7 cm/sec MV dec slope: 417.7 cm/sec2 MV mean P.2 mmHg MVA(P1/2t): 2.3 cm2 MV V2 VTI: 47.4 cm LV V1 max: 107.3 cm/sec PA V2 max: 69.5 cm/sec TR max jose: 357.8 cm/sec LV V1 max P.6 mmHg TR max P.2 mmHg ECHO/Echo Complete Interpretation Summary Normal LV size. Left ventricular systolic function is normal. The estimated ejection fraction is 60 %. Pulmonary artery systolic pressure is 55 mmHg. Stage 2 diastolic dysfunction. The left atrium is mildly enlarged. Ordering Physician: Fadumo Perez Referring Physician: Vu Blackman Performed By: Tenzin Mathews RCS
[2022-04-23] MEDS: HEPARIN/D5w 25,000 UNITS 25,000 UNITS/250 ML IV.SOLN. 14 UNITS CONT INF (03:53)
[2022-04-23] MEDS: Heparin Injection (Vial) 5,000 UNIT/ML VIAL 7500 UNIT IV (03:59)
[2022-04-23] MEDS: Pramipexole Di-HCl 0.5 MG Tablet PO ×3 (05:59→22:39)
[2022-04-23 07:27] LABS: Hemoglobin A1c 5.6 % (3.8-5.6)
[2022-04-23 07:37] LABS: Troponin-I HS 183 pg/mL (3.0-78.0)
[2022-04-23 07:40] LABS: Cholesterol 173 mg/dL (200); High Density Lipoprotein 34 mg/dL; Triglycerides 100 mg/dL; Very Low Density Lipoprotein 20 mg/dL (5-40)
[2022-04-23] MEDS: levETIRAcetam 750 MG Tablet PO ×2 (09:11→22:38)
[2022-04-23] MEDS: Cholecalciferol (VIT D3) 25 MCG TABLET (1,000 UNITS) PO (09:11)
[2022-04-23] MEDS: Metoprolol Tartrate 25 MG Tablet PO ×2 (09:11→22:38)
[2022-04-23] MEDS: Multivitamins,Ther W-Minerals Tablet 1 TABLET PO (09:11)
[2022-04-23] MEDS: Amiodarone 200 MG Tablet PO (09:11)
[2022-04-23] MEDS: Aspirin 81 MG TAB.CHEW PO (09:12)
--- NOTE | 2022-04-23 09:43 | PN.HOSP_ITS ---
Subjective Subjective Feels good. No events overnight. Objective Data Objective Data Vital Signs: Vital Signs Temp Pulse Resp BP Pulse Ox 36.8 C 66 18 183/79 H 93 04/23/22 09:05 04/23/22 09:11 04/23/22 09:05 04/23/22 09:11 04/23/22 09:05 Oxygen Delivery Method Room Air Weight: 91.1 kg Body Mass Index (BMI) 27.2 Intake & Output: Intake and Output for Last 24 Hours 04/21/22 04/22/22 04/23/22 23:59 23:59 23:59 Output Total 300 / 300 Balance -300 / -300 Lab / Micro Data Result Diagrams: 04/23/22 10:18 04/23/22 10:18 Labs: Laboratory Results - last 24 hr 04/23/22 00:38: WBC 5.6, RBC 4.67, Hgb 14.5, Hct 44.8, MCV 95.9 H, MCH 31.0, MCHC 32.4, RDW Std Deviation 44.3 H, RDW Coeff of Francis 12.7, Plt Count 167, MPV 11.0, Immature Gran % (Auto) 0.400, Neut % (Auto) 64.1, Lymph % (Auto) 16.3 L, [place] % (Auto) 15.7 H, Eos % (Auto) 3.0, Baso % (Auto) 0.5, Absolute Neuts (auto) 3.6, Absolute Lymphs (auto) 0.91, Nucleated RBC % 0 04/23/22 00:38: Sodium 140, Potassium 3.7, Chloride 108 H, Carbon Dioxide 28.0, Anion Gap 4 L, BUN 12, Creatinine 0.93, Estim Creat Clear Calc 69.53, Est GFR (MDRD) Af Amer 100, Est GFR (MDRD) Non-Af 83, BUN/Creatinine Ratio 12.9, Glucose 145 H, Calcium 8.7, Total Bilirubin 0.20, AST 25, ALT 41, Alkaline Phosphatase 91, Troponin I High Sens 198 H*, Total Protein 6.9, Albumin 3.3, Globulin 3.6, Albumin/Globulin Ratio 0.9, TSH 3.51 04/23/22 00:38: Magnesium 1.8 04/23/22 00:38: B-Natriuretic Peptide 101.2 H 04/23/22 02:25: Troponin I High Sens 193 H* 04/23/22 02:30: PT 14.1, INR 1.1, APTT 32.8 04/23/22 06:50: Triglycerides 100, Cholesterol 173, LDL Cholesterol 119, VLDL Cholesterol 20, HDL Cholesterol 34 L 04/23/22 06:50: Hemoglobin A1c 5.6 04/23/22 06:50: Troponin I High Sens 183 H* Radiography Diagnostic Testing: Radiology Impression Chest X-Ray 04/23/22 00:45 IMPRESSION: Interval resolution of right lower lobe airspace disease since 12/17/2020. Limited degree of inspiration with left basilar atelectasis. No pneumonia or pulmonary edema. Electronically Signed: Jose Elias Fischer MD at 1:40 EDT , Physical Exam Const alert and no apparent distress Cardio regular rate, regular rhythm, S1 normal heart sound and S2 normal heart sound GI normal to inspection, nondistended, normoactive bowel sounds, soft to palpation, non-tender and non-distended Extremity normal to inspection Neuro Neuro Narrative: no tremulousness. Assessment & Plan Assessment/Plan (1) Accidental overdose of levothyroxine: (2) Elevated troponin: PLAN: The patient is an 81 y/o M w/ PMHx: Hx CVA, Diastolic CHF, PAF, COPD, HTN, HLD, Seizure disorder, Parkinson's disease, Hypothyroidism, Former tobacco use who presents to the [facility] ED on 04/23/22 with history of suspected overdose of levothyroxine earlier in the day in the morning with purportedly a whole bottle of levothyroxine with 25 mcg tablets taken at approximately 7:30 AM noting that the normally places his medications in a pill bottle without a label on it and he normally takes those however he actually grabbed the wrong bottle and took the rest of his levothyroxine except for 4 tablets left in the bottle was last filled 03/20/2022 therefore patient ingested approximately 52 tablets prompting family to bring the patient in for evaluation with patient since intake remaining asymptomatic. #1. Hypothyroidism with levothyroxine overdose: Accidental levothyroxine overdose although not signficant per Poison control (would be concerned if 4 mg or more, currently he is at 1.3 mg), patient with prolonged history of usage amiodarone of note, TSH normal, will to the PCU, maintain on telemetry monitoring to assure no cardiac arrhythmias, monitor for any onset cardiac overload, continue to cycle cardiac enzymes, treat elevated blood pressures, treat any onset GI symptoms and monitor for liver function rise as well as potentially labile behavioral activity, maintain on fall and aspiration precautions. PT/OT/case management consulted. #2. Elevated cardiac enzyme, suspect related to #1, in this setting likely N STEMI type II demand: EKG in ED w/ SR without acute evidence of ischemia, CXR w/ no acute cardiopulmonary findings, improved from last taken. Trop elevated, 198. Will as noted above maintain on a monitored bed, continue serial cardiac enzymes and EKGs. Obtain magnesium level upon admission. Start Heparin drip and de- escalate pending enzyme trending. Continue medical management w/ asa, metoprolol with hold parameters, not on statin therapy likely secondary to age, FLP in AM. Pending enzyme trending if rises upward and telemetry monitoring low threshold to involve cardiology. ECHO requested. ASA, NG, morphine. #3. Hyperglycemia: Admission glucose 145, suspect likely secondary to #1 as patients can commonly have worsened glycemic control in the setting of overdose however be cautious will obtain A1c. Even if HgbA1c is not marked if consistent elevated BS noted my need to add AC/HS with ISS temporarily but will continue to monitor in the interim until trend clear. #4. PAF: s/p DCCV 01/09/2021, we will continue patient on telemetry as noted especially given potential cardiac arrhythmia lowered threshold secondary to #1, continue metoprolol as well as amiodarone cautiously in the setting, maintain on heparin drip. #5. Chronic diastolic CHF: We will very closely monitor and judiciously hydrate given #1 with potential propensity to become overloaded, continue aspirin, metoprolol, not on statin therapy nor GISELLA inhibitor/ARB. Baseline BNP requested. #6. Hypertension: Continue home regimen including metoprolol, PRN hydralazine. #7. Hyperlipidemia: On statin therapy, FLP in a.m. #8. Chronic COPD: Not on any routine inhalers, will defer any ATC DuoNeb therapies given propensity for potential A. fib RVR given #1, will have as needed albuterol if absolutely necessary, encourage head of bed and I-S. #9. Parkinson's disease: Complicates presentation, maintain on fall prec autions, continue Requip home regimen, therapies and case management consulted as noted. #10. Seizure disorder: We will continue patient home Keppra regimen with level requested. #11. Hx Prior CVA: From review of records, prior MRI imaging had noted CVA specifically an acute infarct in the left peritrigonal white matter without mass-effect and small chronic appearing lacunar infarcts in the right caudate nucleus, right hypothalamic and bilateral cerebellar hemispheres and most recent head imaging 06/24/[address] brain with evidence of old left basal ganglia lacunar infarct. We will continue aspirin, hypertensive regimen cautiously, not on statin therapy possibly secondary to advanced age. #12. GERD with history of gastric ulcer requiring emergent surgery: Patient with significant abdominal scar with per description likely ex lap secondary to suspected severe gastric ulcer requiring partial gastrectomy and diversion of the esophagus but requested that bring in what ever paperwork she have so this may be accurately updated. #13. DVT prophylaxis: SCDs, maintain on heparin drip as noted. #14. CODE status: Patient HCPOA is his daughter who is present and living will is currently in place. Discussed CODE status at length including difference between FULL code, DNR-CCA and DNR-CC status. Following discussions about the differences in these status, requested DNR-CCA, no intubation status. Advanced Care Planning Face to Face Time: 16 minutes. Monitor another day. DW patient's . Charges/Coding Visit Charges Inpatient E&M: 73200 Subs Hosp L2
--- NOTE | 2022-04-23 10:00 | EKG12_ITS ---
Test Reason : AM EKG Blood Pressure : / mmHG Vent. Rate : 064 BPM Atrial Rate : 064 BPM P-R Int : 210 ms QRS Dur : 096 ms QT Int : 476 ms P-R-T Axes : 078 066 060 degrees QTc Int : 491 ms Sinus rhythm with 1st degree A-V block Prolonged QT Abnormal ECG When compared with ECG of 23-APR-2022 00:43, MANUAL COMPARISON REQUIRED, DATA IS UNCONFIRMED Confirmed by SELENA BAUER, SAW ([id number]), website/blog editor SONIYA BARRETT ([id number]) on 04/24/2022 1:11:34 PM Referred By: Fadumo Perez Confirmed By:SAW WALTERS MD
[2022-04-23 10:33] LABS: Absolute Lymphocyte Count 0.65 X10^3/uL (0.83-4.51); Absolute Neutrophil Count 2.9 X10^3/uL (2.0-7.7); Basophil# 0.03 X10^3/uL; Basophil% 0.7 % (0-1); Eosinophil# 0.12 X10^3/uL; Eosinophils% 2.7 % (0-5); Hematocrit 42.5 % (40-54); Hemoglobin 14.2 g/dL (13.0-16.5); Lymphocyte # 0.65 X10^3/ul (0.83-4.51); Lymphocyte % 14.7 % (19-41); Mean Corp Hgb Conc 33.4 g/dL (32-36); Mean Corpuscular Hgb 31.8 pg (27.0-32.0); Mean Corpuscular Volume 95.1 fL (80-94); Mean Platelet Vol. 11.6 fl (6.2-12.0); Monocyte% 15.9 % (0-10); NRBC Flagged by Analyzer 0 % (0-5); Neutrophil # 2.89 X10^3/uL (2.7-7.7); Neutrophil % 65.5 % (47-70); Platelet Count 161 K/mm3 (150-450); RBC Distribution Width CV 12.6 % (11.6-14.6); RBC Distribution Width SD 43.8 fl (35.1-43.9); Red Blood Count 4.47 M/mm3 (4.6-6.2); White Blood Count 4.4 K/mm3 (4.4-11.0)
--- NOTE | 2022-04-23 10:35 | CASEMGMT ---
VERONICA ZARATE EMOTIONAL SUPPORT TEACHER ELLIOT to room to meet with patient and for initial transition planning/care coordination assessment. VERONICA ZARATE introduced self and role at [facility].? Pt voices understanding and consents to assessment at this time.? Pt resting in bed in no distress at this time.? @ bedside. Pt is A/O at this time. Most information obtained from ,? Care providers, pharmacy, and demographics verified/updated at this time. PCP: Dr Blackman Specialists: Karmen James, DOG AND CAT FOOD COOK, @ [facility] Neurology, Matty Preferred Pharmacy: [facility] Insurance: [employer] [facility] Prescription Benefit:? Yes. voices concern re: being able to get refill on Levothyroxine d/t they had filled a 90-day supply on 03/20/22 they estimated pt took approx 52 tablets accidentally. CONSTRUCTION ELECTRICIAN ELLIOT, Johnson, made aware. VERONICA ZARATE discussed w/ importance of using a different pill container/bottle when setting up pt's medications than original pill container that comes from pharmacy. voices understanding. Living Will/HPOA:? Have both LW and HPOA, who is pt's dtr, Maye Rodri LNOK: , Doris Moncada. Living Arrangements: Lives w/ in one-story home w/one step to enter. Pt independent w/bathing. assists w/some dressing/donning socks. does med mgmt and home mgmt tasks. Transportation: DME: Has the following DME:? walker, rollator, grab bars, shower chair, comfort height commode, pulse ox. interested in information on medical alert button. Given at this time. states no need for further DME at this time.? HHC/SNF: No hx of either. declines wanting HHC or CCN. Pt and wish for pt to return home and state no concerns with going home at time of discharge.? ? CM to follow for any discharge planning/needs.? Pt and voice no further concerns/needs at this time.? Advised them to ask for CM if any further questions/concerns/needs arise.? They voice understanding. PLAN: ?Home w/spousal support and discharge plans in place. Aye ESCAMILLA RN, CM
[2022-04-23 11:07] LABS: Partial Thromboplast Time 122.6 Seconds (24.1-36.2)
[2022-04-23 11:14] LABS: ALB/GLOB Ratio 0.9 RATIO (0.9-2.4); AST(SGOT) 27 U/L (15-37); Alanine Aminotransfer ALT/SGPT 40 U/L (16-61); Albumin, Serum 3.1 g/dL (3.2-5.0); Alkaline Phosphatase 88 U/L (45-117); Anion Gap 5 (5-15); BUN 10 mg/dL (7-18); BUN/Creat Ratio 13.6 RATIO (10-20); Calcium,Total 8.5 mg/dL (8.5-10.1); Chloride 109 mmol/L (98-107); Creatinine, Serum 0.74 mg/dL (0.70-1.30); EST Glomerular Filtration Rate 109 mL/min (>60); Est Glom Filt Rate - Afr Amer 131 mL/min (>60); Estimated Creatinine Clearance 64.67 ml/min; Globulin 3.6 g/dL (2.2-4.2); Glucose 121 mg/dL (74-106); Potassium 3.6 mmol/L (3.5-5.1); Protein, Total 6.7 g/dL (6.4-8.2); Sodium Level 140 mmol/L (136-145)
--- NOTE | 2022-04-23 14:20 | CHAPLAIN ---
Type of Pastoral Visit _x__ Initial Visit ___ Follow-up Visit ___ On-call Visit ___ General Patient Visit ___ Spiritual Assessment ___ Family Conference ___ Bereavement ___ Rapid Response ___ Code Blue ___ Other (describe below) Pastoral Care Referral From _x__ Patient ___ Family ___ Nurse ___ Physician ___ Moisture Meter Operator ___ Band Splicer ___ Other (describe below) Sacrament/Intervention _x__ Active listening ___ Anointing ___ Muslim ___ Bereavement ___ Communion ___ Georgette exploration ___ ___ Life review _x__ Prayer ___ Reconciliation ___ Sacrament of Sick ___ Supportive presence ___ Wedding ___ Other (describe below) Pastoral Comments patient says he got mixed up about meds and took very many; spouse is with him and she explains more; pt has no other needs evident and is eating and handling things very well; pt welcomes prayer and presence
[2022-04-23] MEDS: Heparin Injection (Vial) 5,000 UNIT/ML VIAL IV (20:00)
[2022-04-23 20:12] LABS: Partial Thromboplast Time 53.9 Seconds (24.1-36.2)
[2022-04-23] MEDS: 0.9% Saline Lock 10 ML Syringe IV (22:27)
[2022-04-24] VITALS (8 sets, daily range): BP systolic 109–160; BP diastolic 61–80; PULSE 57–69; RESP 18; TEMP 36.3–36.8; O2SAT 92–98
[2022-04-24] MEDS: HEPARIN/D5w 25,000 UNITS 25,000 UNITS/250 ML IV.SOLN. 12 UNITS CONT INF (01:56)
[2022-04-24 02:29] LABS: Absolute Lymphocyte Count 0.98 X10^3/uL (0.83-4.51); Basophil# 0.02 X10^3/uL; Basophil% 0.4 % (0-1); Eosinophil# 0.15 X10^3/uL; Eosinophils% 2.9 % (0-5); Hemoglobin 13.4 g/dL (13.0-16.5); Lymphocyte # 0.98 X10^3/ul (0.83-4.51); Lymphocyte % 19.2 % (19-41); Mean Corp Hgb Conc 32.7 g/dL (32-36); Mean Corpuscular Hgb 31.1 pg (27.0-32.0); Mean Corpuscular Volume 95.1 fL (80-94); Mean Platelet Vol. 11.3 fl (6.2-12.0); Monocyte# 0.95 X10^3/uL; Monocyte% 18.6 % (0-10); NRBC Flagged by Analyzer 0 % (0-5); Neutrophil # 2.99 X10^3/uL (2.7-7.7); Neutrophil % 58.5 % (47-70); Platelet Count 167 K/mm3 (150-450); RBC Distribution Width CV 12.8 % (11.6-14.6); RBC Distribution Width SD 43.9 fl (35.1-43.9); Red Blood Count 4.31 M/mm3 (4.6-6.2); White Blood Count 5.1 K/mm3 (4.4-11.0)
[2022-04-24 02:39] LABS: Partial Thromboplast Time 75.6 Seconds (24.1-36.2)
[2022-04-24 02:50] LABS: Anion Gap 7 (5-15); BUN 13 mg/dL (7-18); BUN/Creat Ratio 16.9 RATIO (10-20); Calcium,Total 8.6 mg/dL (8.5-10.1); Chloride 109 mmol/L (98-107); Creatinine, Serum 0.77 mg/dL (0.70-1.30); EST Glomerular Filtration Rate 103 mL/min (>60); Est Glom Filt Rate - Afr Amer 125 mL/min (>60); Estimated Creatinine Clearance 64.67 ml/min; Glucose 109 mg/dL (74-106); Potassium 3.7 mmol/L (3.5-5.1); Sodium Level 141 mmol/L (136-145)
[2022-04-24] MEDS: Pramipexole Di-HCl 0.5 MG Tablet PO ×2 (05:47→13:31)
--- NOTE | 2022-04-24 08:03 | PN.HOSP_ITS ---
Subjective Subjective Feels good no events overnight. noted rash around right ankle prior to admission. Objective Data Objective Data Vital Signs: Vital Signs Temp Pulse Resp BP Pulse Ox 36.3 C L 69 18 118/75 92 04/24/22 03:27 04/24/22 07:00 04/24/22 03:27 04/24/22 03:27 04/24/22 03:27 Oxygen Delivery Method Room Air Weight: 92.3 kg Body Mass Index (BMI) 27.2 Intake & Output: Intake and Output for Last 24 Hours 04/22/22 04/23/22 04/24/22 23:59 23:59 23:59 Intake Total 178.85 / 178.85 119.95 / 119.95 Output Total 1300 / 1300 Balance -1121.15 / -1121.15 119.95 / 119.95 Lab / Micro Data Result Diagrams: 04/24/22 02:22 04/24/22 02:22 Labs: Laboratory Results - last 24 hr 04/23/22 10:18: WBC 4.4, RBC 4.47 L, Hgb 14.2, Hct 42.5, MCV 95.1 H, MCH 31.8, MCHC 33.4, RDW Std Deviation 43.8, RDW Coeff of Francis 12.6, Plt Count 161, MPV 11.6, Immature Gran % (Auto) 0.500, Neut % (Auto) 65.5, Lymph % (Auto) 14.7 L, Harding % (Auto) 15.9 H, Eos % (Auto) 2.7, Baso % (Auto) 0.7, Absolute Neuts (auto) 2.9, Absolute Lymphs (auto) 0.65 L, Nucleated RBC % 0 04/23/22 10:18: Sodium 140, Potassium 3.6, Chloride 109 H, Carbon Dioxide 26.0, Anion Gap 5, BUN 10, Creatinine 0.74, Estim Creat Clear Calc 64.67, Est GFR (MDRD) Af Amer 131, Est GFR (MDRD) Non-Af 109, BUN/Creatinine Ratio 13.6, Glucose 121 H, Calcium 8.5, Total Bilirubin 0.40, AST 27, ALT 40, Alkaline Phosphatase 88, Total Protein 6.7, Albumin 3.1 L, Globulin 3.6, Albumin/Globulin Ratio 0.9 04/23/22 10:18: APTT 122.6 H* 04/23/22 19:40: APTT 53.9 H 04/24/22 02:22: WBC 5.1, RBC 4.31 L, Hgb 13.4, Hct 41.0, MCV 95.1 H, MCH 31.1, MCHC 32.7, RDW Std Deviation 43.9, RDW Coeff of Francis 12.8, Plt Count 167, MPV 11.3, Immature Gran % (Auto) 0.400, Neut % (Auto) 58.5, Lymph % (Auto) 19.2, Harding % (Auto) 18.6 H, Eos % (Auto) 2.9, Baso % (Auto) 0.4, Absolute Neuts (auto) 3.0, Absolute Lymphs (auto) 0.98, Nucleated RBC % 0 04/24/22 02:22: Sodium 141, Potassium 3.7, Chloride 109 H, Carbon Dioxide 25.0, Anion Gap 7, BUN 13, Creatinine 0.77, Estim Creat Clear Calc 64.67, Est GFR (MDRD) Af Amer 125, Est GFR (MDRD) Non-Af 103, BUN/Creatinine Ratio 16.9, Glucose 109 H, Calcium 8.6 04/24/22 02:22: APTT 75.6 H Radiography Diagnostic Testing: Radiology Impression Echocardiogram 04/23/22 03:10 Interpretation Summary Normal LV size. Left ventricular systolic function is normal. The estimated ejection fraction is 60 %. Pulmonary artery systolic pressure is 55 mmHg. Stage 2 diastolic dysfunction. The left atrium is mildly enlarged. Ordering Physician: Fadumo Perez Referring Physician: Vu Blackman Performed By: Tenzin Mathews RCS Physical Exam Const alert and no apparent distress Constitutional Narrative: [place] Resp normal respiratory effort, no retractions, no use of accessory muscles and clear to auscultation bilaterally Cardio regular rate, regular rhythm, S1 normal heart sound and S2 normal heart sound GI normal to inspection, nondistended, normoactive bowel sounds, soft to palpation, non-tender and non-distended Skin Skin Narrative: right medial ankle erythema that blanches with pressure. Neuro Sensorium / Orientation: awake Assessment & Plan Assessment/Plan (1) Accidental overdose of levothyroxine: (2) Elevated troponin: PLAN: The patient is an 81 y/o M w/ PMHx: Hx CVA, Diastolic CHF, PAF, DESIGN TECHNICIAN D, HTN, HLD, Seizure disorder, Parkinson's disease, Hypothyroidism, Former tobacco use who presents to the [facility] ED on 04/23/22 with history of suspected overdose of levothyroxine earlier in the day in the morning with purportedly a whole bottle of levothyroxine with 25 mcg tablets taken at approximately 7:30 AM noting that the normally places his medications in a pill bottle without a label on it and he normally takes those however he actually grabbed the wrong bottle and took the rest of his levothyroxine except for 4 tablets left in the bottle was last filled 03/20/2022 therefore patient ingested approximately 52 tablets prompting family to bring the patient in for evaluation with patient since intake remaining asymptomatic. #1. Hypothyroidism with levothyroxine overdose: * Accidental levothyroxine overdose although not significant per Poison control (would be concerned if 4 mg or more, currently he is at 1.3 mg), patient with prolonged history of usage amiodarone of note, * hold synthroid until outpt follow up . #2. Elevated cardiac enzyme, suspect related to #1, in this setting likely NSTEMI type II demand: * EKG in ED w/ SR without acute evidence of ischemia, * echo showed an EF 60% with PASP 55mmHg, stage 2 DD, LE mildly enlarged * given that the troponins are trending down #3. Hyperglycemia: Admission glucose 145, suspect likely secondary to #1 as patients can commonly have worsened glycemic control in the setting of overdose however be cautious will obtain A1c. Even if HgbA1c is not marked if consistent elevated BS noted my need to add AC/HS with ISS temporarily but will continue to monitor in the interim until trend clear. #4. PAF: s/p DCCV 01/09/2021, we will continue patient on telemetry as noted especially given potential cardiac arrhythmia lowered threshold secondary to #1, continue metoprolol as well as amiodarone cautiously in the setting, maintain on heparin drip. #5. Chronic diastolic CHF: We will very closely monitor and judiciously hydrate given #1 with potential propensity to become overloaded, continue aspirin, metoprolol, not on statin therapy nor GISELLA inhibitor/ARB. Baseline BNP requested. #6. Hypertension: Continue home regimen including metoprolol, PRN hydralazine. #7. Hyperlipidemia: On statin therapy, FLP in a.m. #8. Chronic COPD: Not on any routine inhalers, will defer any ATC DuoNeb therapies given propensity for potential A. fib RVR given #1, will have as needed albuterol if absolutely necessary, encourage head of bed and I-S. #9. Parkinson's disease: Complicates presentation, maintain on fall precautions, continue Requip home regimen, therapies and case management consulted as noted. #10. Seizure disorder: We will continue patient home Keppra regimen with level requested. #11. Hx Prior CVA: From review of records, prior MRI imaging had noted CVA specifically an acute infarct in the left peritrigonal white matter without mass-effect and small chronic appearing lacunar infarcts in the right caudate nucleus, right hypothalamic and bilateral cerebellar hemispheres and most recent head imaging 06/24/[address] brain with evidence of old left basal ganglia lacunar infarct. We will continue aspirin, hypertensive regimen cautiously, not on statin therapy possibly secondary to advanced age. #12. GERD with history of gastric ulcer requiring emergent surgery: Patient with significant abdominal scar with per description likely ex lap secondary to suspected severe gastric ulcer requiring partial gastrectomy and diversion of the esophagus but requested that bring in what ever paperwork she have so this may be accurately updated. #13. DVT prophylaxis: SCDs, maintain on heparin drip as noted. #14. CODE status: Patient LEVI is his daughter who is present and living will is currently in place. Discussed CODE status at length including difference between FULL code, DNR-CCA and DNR-CC status. Following discussions about the differences in these status, requested DNR-CCA, no intubation status. Advanced Care Planning Face to Face Time: 16 minutes. Charges/Coding Visit Charges Inpatient E&M: 48528 Subs Hosp L2
[2022-04-24] MEDS: Cholecalciferol (VIT D3) 25 MCG TABLET (1,000 UNITS) PO (08:18)
[2022-04-24] MEDS: Metoprolol Tartrate 25 MG Tablet PO (08:18)
[2022-04-24] MEDS: Amiodarone 200 MG Tablet PO (08:18)
[2022-04-24] MEDS: levETIRAcetam 750 MG Tablet PO (08:18)
[2022-04-24] MEDS: Aspirin 81 MG TAB.CHEW PO (08:18)
[2022-04-24] MEDS: Multivitamins,Ther W-Minerals Tablet 1 TABLET PO (08:18)
[2022-04-24 08:32] LABS: Partial Thromboplast Time 62.9 Seconds (24.1-36.2)
--- NOTE | 2022-04-24 11:09 | CASEMGMT ---
Addendum entered by Debbie Tucker 04/24/22 13:53: Per therapy, pt would benefit from OP therapy and pt/ are agreeable. Script obtained for [employer] and faxed at this time. Original to pt/. Pt/ voice no further questions/concerns/needs. Helen MARTIN CM Original Note: Per Dr. Boss, pt will not be sent home with a script for levothyroxine and will need to f/u with PCP regarding when to re-start med. Pt/ updated, voice understanding. Pt/ decline any further needs with going home at discharge. states pt just got up to bathroom and she felt he was back to normal. Helen MARTIN CM
[2022-04-24] MEDS: 0.9% Saline Lock 10 ML Syringe IV (13:32)
--- NOTE | 2022-04-24 13:44 | PCM.DC ---
Discharge Instructions Diet Discharge Diet: No restrictions Activity Discharge Activity: Return to Normal Activity Follow Up Care Test Results: Test results from this visit will be discussed in further detail at your follow-up appointment, if applicable. Discharge Plan Admission Admit Date/Time: 04/23/22 02:26 Primary Reason for Your Visit: unintentional levothyroxine (Synthroid) over ingestion. Attending Provider: Alejandro Boss Primary Care Provider: Vu Blackman Consulting Providers: Fadumo Perez Discharge Orders/Prescriptions Prescriptions: Continued ropinirole 1 mg tablet 1 mg PO TID RF: 0 aehqjafs-zpi-LE-lycopen-lutein 1 EACH tablet 1 ea PO DAILY RF: 0 levetiracetam 750 MG tablet 750 mg PO BID RF: 0 metoprolol tartrate 25 mg tablet 25 mg PO BID Qty: 60 RF: 11 amiodarone 200 mg tablet 200 mg PO DAILY Qty: 90 RF: 3 Discontinued levothyroxine 25 mcg tablet 25 mcg PO DAILY RF: 0 No Action cholecalciferol (vitamin D3) 1,000 UNIT tablet 1,000 unit PO DAILY RF: 0 Referrals / Follow Up: Vu Blackman MD [Primary Care Provider] - 04/26/22 Disposition Disposition (needs filled in before D/C Order can be placed): Home, Self Care
--- NOTE | 2022-04-24 13:46 | PCM.DC.SUM ---
Providers Date of Admission: 04/23/22 Primary Care Physician: Dr. Vu Blackman MD Reason For Visit: LEVOTHYROXINE OD, ELEVATED TROP Diagnosis Discharge Diagnosis (1) Accidental overdose of levothyroxine: Status: Acute Code(s): T38.1X1A - Poisoning by thyroid hormones and substitutes, accidental (unintentional), initial encounter (2) Elevated troponin: Status: Acute Code(s): R77.8 - Other specified abnormalities of plasma proteins Medications at Discharge Home Medications cholecalciferol (vitamin D3) 1,000 unit PO DAILY 12/15/20 levetiracetam 750 mg PO BID 12/15/20 dkwfsqfe-cbp-NS-lycopen-lutein 1 ea PO DAILY 12/15/20 metoprolol tartrate 25 mg tablet 25 mg PO BID #60 tab 01/29/22 amiodarone 200 mg tablet 200 mg PO DAILY #90 tablet 02/12/22 ropinirole 1 mg tablet 1 mg PO TID tab 03/01/22 Hospital Course Operations None Procedures 2-D Echocardiogram Summary of Care Provided Minutes Spent on Discharge: 35 Hospital Course: This is an 81-year-old male who took an unintentional overdose of levothyroxine 25 mcg. Patient took approximately 52 tablets. Patient was [facility] the hospital and was asymptomatic. His hospitalization was uncomplicated. It was noted, however, the patient did have elevated troponins. This is likely a type II demand event possibly related with the the large ingestion of levothyroxine. 2D echocardiogram was performed and showed an EF of 60% with pulmonary artery systolic pressure 55 mmHg. Patient's course was uncomplicated and will be discharged home. Patient advised to hold off on his levothyroxine and have that followed up as outpatient with his primary care provider. Given the long half-life of levothyroxine, would not consider reinitiating until at least another week. Weight / BMI Weight Weight: 92.3 kg Body Mass Index (BMI) 27.2 ABG / Lab / Microbiology Data Result Diagrams: 04/24/22 02:22 04/24/22 02:22 Laboratory: Laboratory Results - last 24 hr 04/23/22 19:40: APTT 53.9 H 04/24/22 02:22: WBC 5.1, RBC 4.31 L, Hgb 13.4, Hct 41.0, MCV 95.1 H, MCH 31.1, MCHC 32.7, RDW Std Deviation 43.9, RDW Coeff of Francis 12.8, Plt Count 167, MPV 11.3, Immature Gran % (Auto) 0.400, Neut % (Auto) 58.5, Lymph % (Auto) 19.2, [place] % (Auto) 18.6 H, Eos % (Auto) 2.9, Baso % (Auto) 0.4, Absolute Neuts (auto) 3.0, Absolute Lymphs (auto) 0.98, Nucleated RBC % 0 04/24/22 02:22: Sodium 141, Potassium 3.7, Chloride 109 H, Carbon Dioxide 25.0, Anion Gap 7, BUN 13, Creatinine 0.77, Estim Creat Clear Calc 64.67, Est GFR (MDRD) Af Amer 125, Est GFR (MDRD) Non-Af 103, BUN/Creatinine Ratio 16.9, Glucose 109 H, Calcium 8.6 04/24/22 02:22: APTT 75.6 H 04/24/22 08:01: APTT 62.9 H Radiography Diagnostic Testing: Radiology Impression Echocardiogram 04/23/22 03:10 Interpretation Summary Normal LV size. Left ventricular systolic function is normal. The estimated ejection fraction is 60 %. Pulmonary artery systolic pressure is 55 mmHg. Stage 2 diastolic dysfunction. The left atrium is mildly enlarged. Ordering Physician: Fadumo Perez Referring Physician: Vu Blackman Performed By: Tenzin Mathews RCS D/C Instructions Discharge Diet: No restrictions Meaningful Use Info Meaningful Use Diagnoses (Choose all that apply): None applicable Discharge Plan Admission Admit Date/Time: 04/23/22 02:26 Primary Reason for Your Visit: unintentional levothyroxine (Synthroid) over ingestion. Attending Provider: Alejandro Boss Primary Care Provider: Vu Blackman Consulting Providers: Fadumo Perez Discharge Orders/Prescriptions Prescriptions: Continued ropinirole 1 mg tablet 1 mg PO TID RF: 0 awgpuwkn-iun-YI-lycopen-lutein 1 EACH tablet 1 ea PO DAILY RF: 0 levetiracetam 750 MG tablet 750 mg PO BID RF: 0 metoprolol tartrate 25 mg tablet 25 mg PO BID Qty: 60 RF: 11 amiodarone 200 mg tablet 200 mg PO DAILY Qty: 90 RF: 3 Discontinued levothyroxine 25 mcg tablet 25 mcg PO DAILY RF: 0 No Action cholecalciferol (vitamin D3) 1,000 UNIT tablet 1,000 unit PO DAILY RF: 0 Referrals / Follow Up: Vu Blackman MD [Primary Care Provider] - 04/26/22 Disposition Disposition (needs filled in before D/C Order can be placed): Home, Self Care Charges/Coding Visit Charges Inpatient E&M: 08895 Disch Hosp
--- NOTE | 2022-04-24 14:48 | PHA.DC.MR ---
Pharmacy Service has performed discharge medication reconciliation for this patient. The patient's discharge medication list was reviewed for discrepancies and discrepancies were resolved. Home Medications cholecalciferol (vitamin D3) 1,000 unit PO DAILY 12/15/20 levetiracetam 750 mg PO BID 12/15/20 lhtdecfg-gpp-LA-lycopen-lutein 1 ea PO DAILY 12/15/20 metoprolol tartrate 25 mg tablet 25 mg PO BID #60 tab 01/29/22 amiodarone 200 mg tablet 200 mg PO DAILY #90 tablet 02/12/22 ropinirole 1 mg tablet 1 mg PO TID tab 03/01/22
[2022-04-30 18:06] LABS: KEPPRA (LEVETIRACETAM) 3.3 ug/mL (10.0-40.0)
== END 2022-04-24 15:14 | disposition home or self-care (01) | DRG 917 ==
LOC: ED 04-23 02:29 → PCU 04-23 07:12
PROVIDERS: Admitting Provider Family Medicine; Emergency Provider Emergency Medicine; PCP Family Medicine; Referring Provider Family Medicine
DX: T38.1X1A Poisoning by thyroid hormones and substitutes, accidental (unintentional), initial encounter (principal); G20 Parkinson's disease; J44.9 Chronic obstructive pulmonary disease, unspecified; I50.32 Chronic diastolic (congestive) heart failure; I11.0 Hypertensive heart disease with heart failure; I48.0 Paroxysmal atrial fibrillation; G40.909 Epilepsy, unspecified, not intractable, without status epilepticus; I21.A1 Myocardial infarction type 2; E78.5 Hyperlipidemia, unspecified; E03.9 Hypothyroidism, unspecified; K21.9 Gastro-esophageal reflux disease without esophagitis; R73.9 Hyperglycemia, unspecified; Z87.11 Personal history of peptic ulcer disease; Z87.891 Personal history of nicotine dependence; Z79.890 Hormone replacement therapy; Z79.899 Other long term (current) drug therapy
CPT/HCPCS: 36415; 71045; 80048; 80053; 80061; 80177; 83036; 83735; 83880; 84443; 84484; 85025; 85610; 85730; 93005; 93306; 96365; 96366; 96376; 97161; 97166; 99218; 99251; 99285; Q9957; A4216; G0378; G0463

== ENCOUNTER 2022-07-13 14:00 | Outpatient (RCR) | payer MEDICARE, SELFPAY ==
--- NOTE | 2022-05-08 13:34 | HP.PTEVAL_ITS ---
Patient's Visit Information JOSSELIN GILLILAND is a 81 year old M referred to Physical Therapy by Dr. Alejandro Boss DO with a diagnosis of Parkinson's Disease. Date of Evaluation: 05/08/22 Physical Therapist: ZEINAB Ayon - Visit Plan Frequency: Reassess in June Plan: Pt will be seen again in Jun for a reassessment as he will be out of town until then. Issued a HEP to see if helps improve strength and function. Thoughts at this time would be 2X/ week for 4 weeks based on current deficits to work on general strength, balance, gait and dual tasking. HEP Sit to stand, seated opp arm and leg, Kitchen sink abd and ext, and standing heel and toe raises. - Subjective Pt has been falling and they put him on a medicine for his falling. The medicine has not helped and he still falls. His legs just give out and he can just fall either way. He will be walking and he will start running and then he would fall. He does not hurt himself when he falls. He is not dizzy. He is able to pull self up from the floor onto a chair. He has not steps at home exce pt slight step into the door and then back door 2 steps and cement with a railing. He can get in and out of the house ok. Every now and then he will just freeze. reports that he shuffles with gait. He has an upright walker that is new for him but it does not fit him and he is trying to work with it. He has no trouble getting in and out of a car. He has seizures. He has not had one for over a year now. He struggles to get up out of chairs and has to push self out of the chair. He has a shower chair and there are bars in the shower. He has a raised toliet seat. Pt's goal of PT: He wants to be able to walk better. - Objective Gait: walks with upright rolling walker outside of the walker with bent trunk. The upright walker is not tall enough for the pt but it was a fathers day present and they can not take it back. He is unsteady when walking outside of the walker. LE MMT: B hip flex 3-/5 (R 9.7 lbs and L 9.3 lbs) weak core as he needs to put his arms down to help with resistance of hip flexion MMT), B knee ext 4-/5, B knee flex 4-/5. Pt strains a lot to roll to his side but he is able to do it. Bridge: able to raise 1/4 of normal ROM. Pt is able to do heel and toe raises with UE support. Tinetti 16 - Balance/Special Test Scores Tinetti Balance Score: 8 Tinetti Gait Score: 8 Tinetti Balance & Gait Score: 16 Lower Extremity Functional Score: 25 - Goals Goal 1:: I HEP Goal Time Frame: 1 Week - Rehabilitation Potential Rehabilitation Potential: Good - Anticipated Interventions Patient/Client Instruction: Educate patient on: Condition, Plan of Care For the Purpose of:: To increase ROM, To improve nutrient delivery to tissue, To improve muscle performance and motor function, To improve ability to perform ADL's, To increase tolerance to activity/condition/position, To improve performance and independence with ADL's, To decrease level of supervision to perform tasks, To improve ability of physical actions for home/community/work/leisure, To improve gait and locomotor functions, To improve health of tissue, To increase flexibility/ROM, To improve endurance, To improve balance Therapeutic Exercise to Include: Strength training, Endurance training, Balance training, Coordination, Body mechanics, Postural training, Flexibilty training, Gait and locomotor training, Neuromotor development, Passive ROM, Active ROM, Dynamic Lumbar Stabilization For the Purpose of:: To improve nutrient delivery to tissue, To improve muscle performance and motor function, To improve ability to perform ADL's, To increase tolerance to activity/condition/position, To improve performance and independence with ADL's, To decrease level of supervision to perform tasks, To improve ability of physical actions for home/community/work/leisure, To improve gait and locomotor functions, To improve health of tissue, To decrease soft tissue restriction, To increase flexibility/ROM, To improve endurance, To improve balance, To improve safety with gait Functional Training to Include: Gait training For the Purpose of:: To improve gait and locomotor functions, To improve safety with gait Thank you for the opportunity to evaluate your patient. For Medicare and Medicare HMO plans, please review the plan of care and approve it. It will need to be FAXED BACK to us at [phone] for Medicare purposes. For Medicare only, by signing this I certify the plan of care. Please let me know if there are questions or concerns regarding this plan of care. Physician Signature: Date:
--- NOTE | 2022-05-08 14:47 | HP.OTEVAL ---
Patient's Visit Information JOSSELIN GILLILAND is a 81 year old M, referred to Occupational Therapy by Dr. Alejandro Boss DO, with a diagnosis of PD. Date of Evaluation: 05/08/22 Occupational Therapist: Sissy Smith, RAMONA/Yosi, CHT - Subjective This 81 year old male was seen for OT eval with dx with PD-. pt states he retired from [employer] for 30.5 years. pt states for over about a year he feels he has became weaker and unable to do much-. pt states he will be heading back to [place] in May he would take care of his yard. would like pt to get stronger as she has concerns with his walking and arm weakness - ADLs Comments: pt has shower chair. raised rollator. ww walkers. rollator. states pt is MARGO with ADLs. pt states he does not exercise - ROM ROM Comments: pt demo with BUE WFL - Strength Shoulder: right 4-/5 left 4-/5 Elbow: right 4-/5 left 4-/5 Safety Deposit Supervisor: right 70# left 70# Lateral Pinch: right 14# left 10# Tripod Pinch: right 14# left 16# Strength Comments: pt demo with generalized weakness of UE increasing need of assist from seated to/from standing -. pt demo unsteady gait pattern and required MODA with ambulation - Attention Attention: Fair - Transfers Transfers: pt demo with Min- mod A with tsf and ambulation with high rollator - Quick DASH-Disab of Arm,Shoulder& Hand Quick DASH Score: 43.1800 - Goals Goal:: pt will demo a increase in BUE indicated by performing functional tsf at a SBA level 4/5 trials Goal:: pt will demo good dyn. standing balance for 10 min using appropriate safety strategies 80% of the time as precursor for ADLS - Rehabilitation General Assessment: pt demo with generalized weakness increasing need of assistance with functional mobility. Pt demo need for skilled OT services to ed, pt on HEP as they are leaving for [place] for the month of May. Pt to return for re-check in Jun. and as needed initiate PRE or pt to cont with HEP. Rehabilitation Potential: Fair - Anticipated Interventions Strengthening, Caregiver Training, Home Program - Visit Plan TEXT: Thank you for the opportunity to evaluate your patient. For Medicare and Medicare HMO plans, please review the plan of care and approve it. It will need to be FAXED BACK to us at [phone] for Medicare purposes. Please let me know if there are questions or concerns regarding this plan of care. Physician Signature: Date:
--- NOTE | 2022-07-02 15:51 | HP.PTREVAL ---
Dr. Vu Blackman MD, It has been my pleasure to treat JOSSELIN GILLILAND over the last 2 visits for Parkinson's Disease. Please see the progress note below for an update on the physical therapy plan of care! Subjective: Pt fell 3X in [place]. He blanks out and just falls. The Dr has not said anything about it. He is on a regular wheeled walker no. He has no pain. He has no steps in [place]. He reports that his legs feel weak but when he gets down he can not get back up. He has to have rails to get up out of a chair. He has not done any home exercises since last time. Objective/Function: Gait: walks with a front wheeled walker with CGA with decrease coordination of B LE's. He catches his L toe at least twice in walking 50 feet with CGA. He seems to have B hyper-extension of B knees. Pt likes to walk outside of the walker when turning corners or when going to sit down. Pt is able to heel and toe raise in standing at his walker about 1/2 normal ROM. Sit to stand: able on first attempt with use of the arms of the chair. Pt is able to stand for 30 sec with feet together with EO and EC. R hip flex 10.3 and L 9#, R knee ext 12.2 and L knee ext 12.9#, R knee flex 10.6 and L knee flex 11.4#. Tinetti 16 Plan Plan: 2X/ week for 4 weeks based on current deficits to work on general strength, balance, gait and dual tasking with HEP. Balance/Gait/Functional tests - Balance/Special Test Scores Tinetti Balance Score: 8 Tinetti Gait Score: 8 Tinetti Balance & Gait Score: 16 Lower Extremity Functional Score: 25 Goals Goal 1:: I HEP Goal Time Frame: 1 Week Goal 2:: Be able to walk 150 feet with rolling walker with upright posture without catching his L foot or losing his balance. Goal Time Frame: 4-6 Weeks Goal 3:: Be able to increase strength of LE's (at time of re-eval: R hip flex 10.3 and L 9#, R knee ext 12.2 and L knee ext 12.9#, R knee flex 10.6 and L knee flex 11.4#). Goal Time Frame: 4-6 Weeks Goal 4:: Learn walker safety with going to sit down in a chair or turning corners Goal Time Frame: 4-6 Weeks Goal 5:: Improve Tinetti balance from 16 Goal Time Frame: 4-6 Weeks Anticipated Interventions Patient/Client Instruction: Educate patient on: Condition, Plan of Care For the Purpose of:: To increase ROM, To improve nutrient delivery to tissue, To improve muscle performance and motor function, To improve ability to perform ADL's, To increase tolerance to activity/condition/position, To improve performance and independence with ADL's, To decrease level of supervision to perform tasks, To improve ability of physical actions for home/community/work/leisure, To improve gait and locomotor functions, To improve health of tissue, To increase flexibility/ROM, To improve endurance, To improve balance Therapeutic Exercise to Include: Strength training, Endurance training, Balance training, Coordination, Body mechanics, Postural training, Flexibilty training, Gait and locomotor training, Neuromotor development, Passive ROM, Active ROM, Dynamic Lumbar Stabilization For the Purpose of:: To improve nutrient delivery to tissue, To improve muscle performance and motor function, To improve ability to perform ADL's, To increase tolerance to activity/condition/position, To improve performance and independence with ADL's, To decrease level of supervision to perform tasks, To improve ability of physical actions for home/community/work/leisure, To improve gait and locomotor functions, To improve health of tissue, To decrease soft tissue restriction, To increase flexibility/ROM, To improve endurance, To improve balance, To improve safety with gait Functional Training to Include: Gait training For the Purpose of:: To improve gait and locomotor functions, To improve safety with gait Please do not hesitate to contact me at [phone] by phone or if you have questions or concerns regarding this new plan of care! Sincerely, Karuna Foster, MPT
--- NOTE | 2022-07-18 10:21 | HP.PT.NRP ---
JOSSELIN GILLILAND was seen in my office for initial evaluation on 05/08/22. The following Plan of Care was established for this patient: Initial Frequency: Reassess in June Patient/Client Instruction: Educate patient on: Condition, Plan of Care For the Purpose of:: To increase ROM, To improve nutrient delivery to tissue, To improve muscle performance and motor function, To improve ability to perform ADL's, To increase tolerance to activity/condition/position, To improve performance and independence with ADL's, To decrease level of supervision to perform tasks, To improve ability of physical actions for home/community/work/leisure, To improve gait and locomotor functions, To improve health of tissue, To increase flexibility/ROM, To improve endurance, To improve balance Therapeutic Exercise to Include: Strength training, Endurance training, Balance training, Coordination, Body mechanics, Postural training, Flexibilty training, Gait and locomotor training, Neuromotor development, Passive ROM, Active ROM, Dynamic Lumbar Stabilization For the Purpose of:: To improve nutrient delivery to tissue, To improve muscle performance and motor function, To improve ability to perform ADL's, To increase tolerance to activity/condition/position, To improve performance and independence with ADL's, To decrease level of supervision to perform tasks, To improve ability of physical actions for home/community/work/leisure, To improve gait and locomotor functions, To improve health of tissue, To decrease soft tissue restriction, To increase flexibility/ROM, To improve endurance, To improve balance, To improve safety with gait Functional Training to Include: Gait training For the Purpose of:: To improve gait and locomotor functions, To improve safety with gait This patient was last seen in our office 07/13/22. Pertinent comments regarding their Physical therapy will appear below: DC PT. came in to let us know that they will not be coming back to therapy because it was too painful. At this point I will be discontinuing this patient from physical therapy. I would be happy to see this patient again in the future if found appropriate by the physician. Thank you! Karuna Foster, ZEINAB Balance/Gait/Functional tests - Balance/Special Test Scores Tinetti Balance Score: 8 Tinetti Gait Score: 8 Tinetti Balance & Gait Score: 16 Lower Extremity Functional Score: 25
== END 2022-07-13 19:00 | disposition home or self-care (01) ==
LOC: PT 14:00
PROVIDERS: PCP Family Medicine; Visit Provider Family Medicine
DX: G20 Parkinson's disease (principal)
CPT/HCPCS: 97110; 97161; 97166; 97530

== ENCOUNTER 2022-09-23 15:53 | Emergency (ER) | payer MEDICARE, SELFPAY ==
[2022-09-23 15:54] VITALS: BP 161/90; PULSE 79; RESP 18; TEMP 36.4; O2SAT 93; BMI 27.1
--- NOTE | 2022-09-23 16:42 | EKG12_ITS ---
Test Reason : sob Blood Pressure : / mmHG Vent. Rate : 076 BPM Atrial Rate : 076 BPM P-R Int : 184 ms QRS Dur : 092 ms QT Int : 438 ms P-R-T Axes : 070 056 065 degrees QTc Int : 492 ms Normal sinus rhythm Prolonged QT Abnormal ECG Confirmed by SELENA BAUER, SAW ([id number]), scientific editor SONIYA BARRETT ([id number]) on 09/26/2022 11:34:04 AM Referred By: John Confirmed By:SAW WALTERS MD
--- NOTE | 2022-09-23 16:44 | EDS_ITS ---
HPI History of Present Illness Chief Complaint: Weakness Detail of Chief Complaint: Weeks ago with generalized weakness with falls at home and wheezing. Neuro Informant: patient and family Onset/Context/Timing Onset: Weeks Context: Gradual Onset Timing: Intermittent Current Severity: Mild Maximum Severity: Mild Narrative Narrative: 82-year-old male history of hypothyroidism and Parkinson's disease. He presents because of change in mental status patient brought in by his daughter. He had 2 falls yesterday at home once in the kitchen and once in the living room. Right other than skin tears on his right arm denies any other complaints. She states he has been having some wheezing. Yesterday had some nausea and dry heaves. No fever. No dysuria. No melena. No recent hospitalizations. Prior similar symptoms: Yes Recent Illness/Hospitalization: No [facility] Medical History Acute diastolic (congestive) heart failure Atrial fibrillation with rapid ventricular response (12/15/20) Bilateral pleural effusion COPD (chronic obstructive pulmonary disease) Essential (primary) hypertension History of CVA (cerebrovascular accident) longterm current use of amiodarone Parkinson disease Paroxysmal atrial fibrillation Seizure disorder Weight gain no medical history Home Medications levetiracetam 750 mg tablet 750 mg PO BID seizures 12/15/20 [History Last Taken 01/09/21] metoprolol tartrate 25 mg tablet 25 mg PO BID #60 tabs 01/29/22 [Rx Last Taken Unknown] aspirin 81 mg tablet,delayed release (Adult Aspirin Regimen) 81 mg PO DAILY 05/18/22 [History Last Taken Unknown] carbidopa 25 mg-levodopa 100 mg tablet 0.5 tab PO TID 08/17/22 [History Last Taken Unknown] cholecalciferol (vitamin D3) 25 mcg (1,000 unit) tablet 2,000 unit PO DAILY supplement 08/17/22 [History Last Taken Unknown] levothyroxine 25 mcg tablet 25 mcg PO DAILY 08/17/22 [History Last Taken Unknown] vitamin E (dl, acetate) 180 mg (400 unit) capsule 180 mg PO DAILY 08/17/22 [History Last Taken Unknown] albuterol sulfate 90 mcg/actuation aerosol inhaler (Proventil HFA) 2 puff inhal ation Q6H PRN shortness of breath or wheezing #6.7 grams 09/23/22 [Rx Last Taken Unknown] Allergy/AdvReac Type Severity Reaction Status Date / Time No Known Allergies Allergy Verified 09/23/22 15:56 Family History Father Hypertension Mother Parkinsons disease Surgical History History of cardioversion (01/09/21) S/P appendectomy S/P cholecystectomy S/P exploratory laparotomy Social History household members: spouse Smoking Status: Former smoker how long ago did patient quit smoking: Quite remotely, but did smoke again x 1 month in 2020 but has since quit. alcohol intake: never substance use type: does not use ROS ROS ED ROS Narrative Wheezing. Review of Systems ROS Unobtainable: Denies due to encephalopathy Constitutional Constitutional ED: Denies chills or fever(s) Eyes Eyes: Denies blurry vision Cardiovascular Cardiovascular: Denies chest pain Respiratory/Chest Respiratory/Chest: Denies cough or dyspnea Gastrointestinal Gastrointestinal: Denies abdominal pain Genitourinary Genitourinary ED: Denies dysuria or hematuria Musculoskeletal Musculoskeletal: Denies arthralgias Integumentary Denies abscess Neurologic Neurologic: Denies headache(s) Psychiatric Psychiatric: Denies anxiety Endocrine Endocrinology: Denies cold intolerance Hematologic/Lymphatic Hematologic/Lymphatic: Reports none Allergic/Immunologic Allergic/Immunologic ED: Denies mouth swelling or tongue swelling EXAM Physical Exam Narrative Exam Narrative: 82-year-old male no acute distress. Vital signs stable afebrile. Daughter at bedside. Pulse ox 93% on room air no hypoxia. H EENT exam unremarkable atraumatic. Neck nontender no JVD. Lungs few scattered expiratory wheezes. No rales or rhonchi. Heart rate about 80. No murmur. Chest wall nontender. Ribs nontender. Abdomen soft nontender. Pelvic girdle intact. Moving all 4 extremities. Nontender with no deformity. Minor skin tears right elbow. No laceration to repair. Neurologically is awake and alert. Answering questions and following commands. Const Vital Signs: 09/23/22 15:54 09/23/22 16:56 09/23/22 17:00 Temperature 97.6 F L Temperature Source Temporal Pulse Rate 79 76 Respiratory Rate 18 22 H Respiratory Effort Short of Breath Respiratory Pattern Blood Pressure 161/90 H Blood Pressure Mean 113 Pulse Ox 93 95 Oxygen Delivery Method Room Air Room Air 09/23/22 17:11 09/23/22 18:00 09/23/22 19:13 Temperature Temperature Source Pulse Rate 86 91 78 Respiratory Rate 18 18 18 Respiratory Effort Respiratory Pattern Normal Blood Pressure 149/95 H Blood Pressure Mean 113 Pulse Ox 75 94 Oxygen Delivery Method Room Air Room Air 09/23/22 22:18 Temperature Temperature Source Pulse Rate 80 Respiratory Rate 18 Respiratory Effort Respiratory Pattern Blood Pressure 158/92 H Blood Pressure Mean 114 Pulse Ox 93 Oxygen Delivery Method Room Air Positive well nourished and well developed; Negative for obese, cachectic, contractures or unkempt General Appearance ED: well developed and NAD; Negative for unkempt, cachectic, contractures, cyanotic or diaphoretic Nutritional Appearance: Negative for cachectic or obese HEENT Reports moist mucous membranes; Denies dry mucous membranes Negative for trauma or tenderness Mouth ED: No dry mucous membranes Mouth: No dry mucous membranes Eyes PERRL and EOMs intact bilaterally General Eye ED: Negative for pale conjunctiva or scleral icterus Neck no lymphadenopathy, supple and no JVD General: Negative for tenderness Chest Wall inspection of chest normal and palpation of chest normal Chest: Negative for other Resp normal respiratory effort and No clear to auscultation bilaterally Resp Narrative: Few scattered expiratory wheezes. No rales or rhonchi. Equal symmetrical. No distress. Auscultation: wheezes Cardio regular rate, regular rhythm, S1 normal heart sound, S2 normal heart sound and no murmurs GI normal to inspection, nondistended, normoactive bowel sounds, non-tender, non- distended and no masses Inspection: Negative for abdominal distention Auscultation: normoactive bowel sounds Palpation: soft; Negative for tender or guarding Back/Spine no CVA tenderness General Back: Negative for CVA tenderness Cervical Spine: Negative for cervical spine tenderness Thoracic Spine / Upper Back: Negative for thoracic spinal tenderness or paraspinal muscle tenderness Lumbar Spine / Lower Back: Negative for lumbar spinal tenderness Extremity normal to inspection Extremity Narrative: Skin tears right elbow. General Extremety ED: Negative for edema or tenderness General Extremity: Negative for edema Neuro oriented x3 Sensorium / Orientation: alert; Negative for orientation impaired, lethargic or stuporous Motor Exam: strength 5/5 throughout Psych mental status grossly normal Appearance: Negative for unkempt Attitude: No agitated Mood & Affect: Negative for depressed, anxious or tearful Skin no rashes or lesions noted and no wounds Rashes: No rashes noted Trauma: abrasion Wounds: Negative for wounds noted MDM MDM MDM Narrative Medical decision making narrative: 82-year-old history of Parkinson's and hypothyroidism. With generalized weakness and falls. Exam benign other than few scattered wheezes. An abrasion on his right arm. Screening labs will be obtained. Repeat exams unchanged. Patient is doing well at 10:15 PM. They have been in the emergency department lengthy period of time due to overall volume high acuity. Discussed all test results with patient and his family. Nurses were able to ambulate the patient. Said he got up and did well out of bed. He could use the walker. Family was happy with his strength and his ability to use the walker and are comfortable with him being discharged home. Lab Data Attestation: I reviewed the patient's lab results. Lab results narrative: CBC unremarkable white count 7.2. H&H 14 and 43. Platelets 210. Electrolytes unremarkable gap is 6 normal BUN and creatinine. Glucose 100. Troponin was elevated at 152. Consistent with prior labs. Prior elevated troponins. Labs: Laboratory Results - last 24 hr 09/23/22 09/23/22 16:53 16:53 WBC 7.2 RBC 4.50 L Hgb 14.0 Hct 43.6 MCV 96.9 H MCH 31.1 MCHC 32.1 RDW Std Deviation 46.5 H RDW Coeff of Francis 13.2 Plt Count 210 MPV 12.0 Immature Gran % (Auto) 0.400 Neut % (Auto) 60.2 Lymph % (Auto) 16.5 L Prowers % (Auto) 19.2 H Eos % (Auto) 3.4 Baso % (Auto) 0.3 Absolute Neuts (auto) 4.3 Absolute Lymphs (auto) 1.18 Nucleated RBC % 0 Sodium 139 Potassium 3.8 Chloride 104 Carbon Dioxide 29.0 Anion Gap 6 BUN 13 Creatinine 0.86 Estim Creat Clear Calc 73.94 Est GFR (MDRD) Af Amer 110 Est GFR (MDRD) Non-Af 91 BUN/Creatinine Ratio 15.1 Glucose 100 Calcium 8.9 Troponin I High Sens 152 H* Radiography Chest X-Ray - ED: 1 View, Read by ED Physician, Heart, Lungs, Mediastinum, Bony Structures, No Acute Disease and Chronic Changes Diagnostic Testing: Clinical Impression(s) from Imaging Studies Chest X-Ray 09/23/22 17:20 IMPRESSION: Prominent interstitial markings with basilar atelectasis with superimposed peribronchial inflammation and superimposed basilar airspace disease/pneumonia not excluded, clinically correlate. Electronically Signed: Ramses Ewing, at 18:02 EST Reading Location ID and State: [facility] / [place] , Service support , Chest x-ray, portable, single view interpreted myself and radiologist as right lower lobe atelectasis. This has been seen on prior x-rays. He has had prior CAT scans of the chest showing effusion and atelectasis. Clinically I do not think this is a pneumonia. He has no white count. No fever. He is not hypoxic. Rhythm Strip Rhythm Strip: Sinus Rhythm Rate: 76 Ectopy: None EKG Initial EKG: Attestation: I personally reviewed and interpreted this EKG as follows: Interpretation: Sinus Rhythm and No Acute Injury Pattern Comments: Normal sinus rhythm with a rate of 76 with no acute signs of [place] or ischemia. Discharge Plan Triage Chief Complaint: Weakness ED Provider: Raúl Petty Dx/Rx/DC Orders Clinical Impression: Generalized weakness, Parkinson disease Instructions: ED Weakness (Uncertain Cause) Prescriptions: New albuterol sulfate [Proventil HFA] 90 mcg/actuation HFA aerosol inhaler 2 puff inhalation Q6H PRN (Reason: shortness of breath or wheezing) Qty: 6.7 1RF No Action aspirin [Adult Aspirin Regimen] 81 mg tablet,delayed release (DR/EC) 81 mg PO DAILY vitamin E (dl, acetate) 180 mg (400 unit) capsule 180 mg PO DAILY levothyroxine 25 mcg tablet 25 mcg PO DAILY Label Comments: TAKE 1 TABLET BY MOUTH ONCE DAILY. TAKE ON EMPTY STOMACH. FOR THYROID. carbidopa-levodopa 25-100 mg tablet 0.5 tab PO TID Label Comments: TAKE 0.5 TABLETS BY MOUTH THREE TIMES DAILY. TAKE THREE TIMES DAILY WITH MEALS. levetiracetam 750 MG tablet 750 mg PO BID cholecalciferol (vitamin D3) 25 mcg (1,000 unit) tablet 2,000 unit PO DAILY metoprolol tartrate 25 mg tablet 25 mg PO BID Qty: 60 11RF Primary Care Provider: Vu Blackman Referrals: Vu Blackman MD [Primary Care Provider] - 3-5 Days Activity Restrictions/Additional Instructions: Plenty of fluids and rest. Follow-up with your doctor. Return if worse. Disposition Disposition: Home, Self Care
[2022-09-23 16:56] VITALS: PULSE 76; RESP 22; O2SAT 95
[2022-09-23 16:59] LABS: Absolute Lymphocyte Count 1.18 X10^3/uL (0.83-4.51); Absolute Neutrophil Count 4.3 X10^3/uL (2.0-7.7); Basophil# 0.02 X10^3/uL; Basophil% 0.3 % (0-1); Eosinophil# 0.24 X10^3/uL; Eosinophils% 3.4 % (0-5); Hematocrit 43.6 % (40-54); Lymphocyte # 1.18 X10^3/ul (0.83-4.51); Lymphocyte % 16.5 % (19-41); Mean Corp Hgb Conc 32.1 g/dL (32-36); Mean Corpuscular Hgb 31.1 pg (27.0-32.0); Mean Corpuscular Volume 96.9 fL (80-94); Monocyte# 1.37 X10^3/uL; Monocyte% 19.2 % (0-10); NRBC Flagged by Analyzer 0 % (0-5); Neutrophil # 4.31 X10^3/uL (2.7-7.7); Neutrophil % 60.2 % (47-70); Platelet Count 210 K/mm3 (150-450); RBC Distribution Width CV 13.2 % (11.6-14.6); RBC Distribution Width SD 46.5 fl (35.1-43.9); White Blood Count 7.2 K/mm3 (4.4-11.0)
[2022-09-23] MEDS: Ipratropium/Albuterol Sulfate 3 ML AMPUL.NEB INHALATION (17:06)
[2022-09-23 17:11] VITALS: PULSE 86; RESP 18
--- NOTE | 2022-09-23 17:20 | RAD_ITS ---
STUDY: X-RAY CHEST REASON FOR EXAM: Male, 82 years old. wheezing TECHNIQUE: Single AP portable view of the chest. COMPARISON: 04/23/2022 FINDINGS: Prominent interstitial markings are seen bilaterally with basilar atelectasis. There is no demonstrated pleural abnormality. Normal size heart. Normal mediastinum and ramon. Normal visualized pulmonary arteries. Normal visualized aortic arch and descending thoracic aorta. Normal visualized thoracic spine. Normal visualized ribs, clavicles, and shoulders. There is no demonstrated abnormality of the visualized soft tissue structures of the upper abdomen. RAD/Chest 1 View (Portable) IMPRESSION: Prominent interstitial markings with basilar atelectasis with superimposed peribronchial inflammation and superimposed basilar airspace disease/pneumonia not excluded, clinically correlate. Electronically Signed: Ramses Ewing DO at 18:02 EST ,
[2022-09-23 17:22] LABS: Anion Gap 6 (5-15); BUN 13 mg/dL (7-18); BUN/Creat Ratio 15.1 RATIO (10-20); Calcium,Total 8.9 mg/dL (8.5-10.1); Chloride 104 mmol/L (98-107); Creatinine, Serum 0.86 mg/dL (0.70-1.30); EST Glomerular Filtration Rate 91 mL/min (>60); Est Glom Filt Rate - Afr Amer 110 mL/min (>60); Estimated Creatinine Clearance 73.94 ml/min; Glucose 100 mg/dL (74-106); Potassium 3.8 mmol/L (3.5-5.1); Sodium Level 139 mmol/L (136-145); Troponin-I HS 152 pg/mL (3.0-78.0)
[2022-09-23] MEDS: predniSONE 20 MG Tablet 60 MG PO (17:26)
[2022-09-23 18:00] VITALS: BP 149/95; PULSE 91; RESP 18; O2SAT 75
[2022-09-23 19:13] VITALS: PULSE 78; RESP 18; O2SAT 94
[2022-09-23 22:18] VITALS: BP 158/92; PULSE 80; RESP 18; O2SAT 93
== END 2022-09-23 22:41 | disposition home or self-care (01) ==
PROVIDERS: Emergency Provider Emergency Medicine; PCP Family Medicine; Visit Provider Emergency Medicine
DX: R53.1 Weakness (principal); G20 Parkinson's disease; J44.9 Chronic obstructive pulmonary disease, unspecified; I50.31 Acute diastolic (congestive) heart failure; I11.0 Hypertensive heart disease with heart failure; I48.0 Paroxysmal atrial fibrillation; Z87.891 Personal history of nicotine dependence; Z86.73 Personal history of transient ischemic attack (TIA), and cerebral infarction without residual deficits; Z79.82 Long term (current) use of aspirin; Z79.899 Other long term (current) drug therapy
CPT/HCPCS: 71045; 80048; 84484; 85025; 93005; 94640; 99285; A4216

== ENCOUNTER 2023-08-24 14:27 | Emergency (ER) | payer MEDICARE, SELFPAY ==
[2023-08-24 14:28] VITALS: BP 114/72; PULSE 94; RESP 18; TEMP 36.1; O2SAT 92
--- NOTE | 2023-08-24 14:38 | EKG12_ITS ---
Test Reason : Blood Pressure : / mmHG Vent. Rate : 119 BPM Atrial Rate : 000 BPM P-R Int : 000 ms QRS Dur : 088 ms QT Int : 310 ms P-R-T Axes : 000 053 032 degrees QTc Int : 436 ms Atrial fibrillation with rapid ventricular response Minimal voltage criteria for LVH, may be normal variant ( Antony product ) Abnormal ECG Confirmed by SELENA BAUER, SAW ([id number]), editor city GABINO MCKEON ([id number]) on 08/27/2023 11:40:13 AM Referred By: Confirmed By:SAW WALTERS MD
--- NOTE | 2023-08-24 14:39 | EDS_ITS ---
<Statement entered by Lion Horowitz MD - 08/24/23 20:42> I have personally performed a face to face assessment of the patient and have reviewed the KESHA Note. HPI History of Present Illness Chief Complaint: Cough Narrative Narrative: 83-year-old male with past medical history of Parkinson's disease, CHF was [facility] by [facility] for [facility]. He has had 3 weeks of sinus congestion, productive cough and shortness of breath. He was seen at the clinic 3 days ago and prescribed Zithromax and Tessalon Perles but he is not improving. He is using his home inhalers and still feels short of breath. No chest pain. states he mostly sleeps sitting upright in his recliner at baseline. He does not wear home oxygen. He used to be a smoker. [facility] Medical History Acute bronchitis, unspecified Acute diastolic (congestive) heart failure Atrial fibrillation with rapid ventricular response (12/15/20) Bilateral pleural effusion COPD (chronic obstructive pulmonary disease) Essential (primary) hypertension History of CVA (cerebrovascular accident) senior living current use of amiodarone Parkinson disease Paroxysmal atrial fibrillation Seizure disorder Weight gain Home Medications levetiracetam 750 mg tablet 750 mg PO BID seizures 12/15/20 [History Last Taken 01/09/21] aspirin 81 mg tablet,delayed release (Adult Aspirin Regimen) 81 mg PO DAILY 05/18/22 [History Last Taken Unknown] carbidopa 25 mg-levodopa 100 mg tablet 0.5 tab PO TID 08/17/22 [History Last Saurabh en Unknown] cholecalciferol (vitamin D3) 25 mcg (1,000 unit) tablet 2,000 unit PO DAILY supplement 08/17/22 [History Last Taken Unknown] levothyroxine 25 mcg tablet 25 mcg PO DAILY 08/17/22 [History Last Taken Unknown] vitamin E (dl, acetate) 180 mg (400 unit) capsule 180 mg PO DAILY 08/17/22 [History Last Taken Unknown] albuterol sulfate 90 mcg/actuation aerosol inhaler (Proventil HFA) 2 puff inh alation Q6H PRN shortness of breath or wheezing #6.7 grams 09/23/22 [Rx Last Taken Unknown] metoprolol tartrate 25 mg tablet 25 mg PO BID #60 tabs 01/21/23 [Rx Last Taken Unknown] azithromycin 250 mg tablet 250 mg PO QDAY #6 tabs 08/21/23 [Rx Last Taken Unknown] benzonatate 200 mg capsule 200 mg PO QHS PRN cough #10 caps 08/21/23 [Rx Last Taken Unknown] carbidopa ER 50 mg-levodopa 200 mg tablet,extended release 1 tab PO QHS 08/22/23 [History Last Taken Unknown] doxycycline hyclate 100 mg capsule 100 mg PO BID 7 days #14 caps 08/24/23 [Rx Last Taken Unknown] Allergy/AdvReac Type Severity Reaction Status Date / Time No Known Allergies Allergy Verified 08/24/23 14:29 Family History Father Hypertension Mother Parkinsons disease Surgical History History of cardioversion (01/09/21) S/P appendectomy S/P cholecystectomy S/P exploratory laparotomy Social History household members: spouse Smoking Status: Former smoker how long ago did patient quit smoking: Quite remotely, but did smoke again x 1 month in 2020 but has since quit. alcohol intake: never substance use type: does not use ROS ROS ED ROS Narrative Constitutional: Negative for fever, chills, malaise. CVS: Negative for palpitations, chest pain, syncope. Respiratory: Positive for shortness of breath, cough. GI: Negative for abdominal pain, nausea, vomiting, diarrhea. EXAM Physical Exam Narrative Exam Narrative: CONST: Patient sitting in no acute distress. EYES: Normal inspection. ENT: Normal inspection, moist mucous membranes. NECK: Normal inspection. RESP: No respiratory distress, bibasilar crackles. CVS: Regular rate and rhythm, no murmur, no gallop. SKIN: Color normal, no rash, warm, dry, intact. EXTREMITIES: Normal appearance, no pedal edema. NEURO: Oriented x4. PSYCH: Normal affect. Const Vital Signs: 08/24/23 14:28 08/24/23 16:17 Temperature 97 F L Temperature Source Temporal Pulse Rate 94 Respiratory Rate 18 Respiratory Effort Short of Breath Blood Pressure 114/72 Blood Pressure Mean 86 Pulse Ox 92 Oxygen Delivery Method Room Air MDM MDM MDM Narrative Medical decision making narrative: History was gathered from the patient and his spouse. He has had 3 weeks of sinus congestion, productive cough and shortness of breath. He appears well and nontoxic. Vital signs within normal limits. He has bibasilar crackles on exam with no evidence of lower extremity edema. He is speaking in full sentences in no distress. EKG shows A-fib RVR at 119 with no acute ischemic changes. A-fib is chronic and during my exam he is rate controlled around 90. CBC and BMP are unremarkable. BNP is 181. CXR shows small right pleural effusion and radiology noted left lung atelectasis but on my review this looks like it could be a developing infiltrate and with 3 weeks of cough I prescribed doxycycline. He has 1 more day of a Z-Hipolito left he can finish as well. He is not hypoxic and I feel he is reasonable for outpatient management of pneumonia. He has inhalers and was given return precautions and discharged in stable condition. Differential: Viral URI, pneumonia, CHF Lab Data Attestation: I reviewed the patient's lab results. Labs: Laboratory Results - last 24 hr 08/24/23 15:15 WBC 8.4 RBC 4.77 Hgb 14.8 Hct 46.1 MCV 96.6 H MCH 31.0 MCHC 32.1 RDW Std Deviation 46.6 H RDW Coeff of Francis 13.1 Plt Count 265 MPV 11.2 Immature Gran % (Auto) 0.400 Neut % (Auto) 69.5 Lymph % (Auto) 13.4 L Will % (Auto) 14.9 H Eos % (Auto) 1.4 Baso % (Auto) 0.4 Absolute Neuts (auto) 5.9 Absolute Lymphs (auto) 1.13 Nucleated RBC % 0 Sodium 138 Potassium 3.5 Chloride 104 Carbon Dioxide 28.0 Anion Gap 6 BUN 14 Creatinine 0.74 Est GFR (MDRD) Af Amer 130 Est GFR (MDRD) Non-Af 108 BUN/Creatinine Ratio 18.9 Glucose 99 Calcium 8.9 B-Natriuretic Peptide 181.6 H Radiography Diagnostic Testing: Clinical Impression(s) from Imaging Studies Chest X-Ray 08/24/23 14:48 IMPRESSION: 1. Atelectatic changes in the lung bases. 2. Small right pleural effusion. Electronically Signed: Jerome Khoury MD at 15:14 EDT , ED attending interpretation of 2-view chest x-ray shows small right pleural effusion, possible early left lower infiltrate. EKG Initial EKG: Attestation: I personally reviewed and interpreted this EKG as follows: Interpretation: Atrial Fibrillation Comments: A-fib RVR 119 bpm, no STEMI criteria Similar to EKG on 12/15/2020 Prior: Unchanged Discharge Plan Triage Chief Complaint: Cough ED Midlevel Provider: Montserrat Berkowitz ED Provider: Lion Horowitz Dx/Rx/DC Orders Clinical Impression: Pneumonia Instructions: ED Pneumonia (Adult) Prescriptions: New doxycycline hyclate 100 mg capsule 100 mg PO BID 7 Days Qty: 14 0RF No Action aspirin [Adult Aspirin Regimen] 81 mg tablet,delayed release (DR/EC) 81 mg PO DAILY vitamin E (dl, acetate) 180 mg (400 unit) capsule 180 mg PO DAILY levothyroxine 25 mcg tablet 25 mcg PO DAILY Patient Comments: TAKE 1 TABLET BY MOUTH ONCE DAILY. TAKE ON EMPTY STOMACH. FOR THYROID. carbidopa-levodopa 25-100 mg tablet 0.5 tab PO TID Patient Comments: TAKE 0.5 TABLETS BY MOUTH THREE TIMES DAILY. TAKE THREE TIMES DAILY WITH MEALS. carbidopa-levodopa 50-200 mg tablet extended release 1 tab PO QHS Patient Comments: TAKE 1 TABLET AT 9PM (BEDTIME) azithromycin 250 mg tablet 250 mg PO QDAY Qty: 6 0RF Rx Instructions: 2 tablets today, then 1 tablet daily on days 2 through 5 benzonatate 200 mg capsule 200 mg PO QHS PRN (Reason: cough) Qty: 10 0RF levetiracetam 750 MG tablet 750 mg PO BID cholecalciferol (vitamin D3) 25 mcg (1,000 unit) tablet 2,000 unit PO DAILY albuterol sulfate [Proventil HFA] 90 mcg/actuation HFA aerosol inhaler 2 puff inhalation Q6H PRN (Reason: shortness of breath or wheezing) Qty: 6.7 1RF metoprolol tartrate 25 mg tablet 25 mg PO BID Qty: 60 11RF Primary Care Provider: Vu Blackman Referrals: Vu Blackman MD [Primary Care Provider] - Activity Restrictions/Additional Instructions: Please take the new antibiotic doxycycline twice a day, use your inhaler as needed. and follow up with your primary care doctor next week Disposition Disposition: Home, Self Care
--- NOTE | 2023-08-24 14:48 | RAD_ITS ---
INDICATION: cough EXAMINATION/TECHNIQUE: X-RAY - XR Chest 2 Views COMPARISON: Prior study dated: 09/23/2022. FINDINGS: LINES/DEVICES: None. LUNGS: Atelectatic changes in both lower lungs. Small right pleural effusion. MEDIASTINUM AND CARDIOVASCULAR STRUCTURES: Normal cardiac silhouette. Atherosclerotic excretions of the aortic arch. BONES AND SOFT TISSUES: Stable soft tissues and osseous structures. RAD/Chest PA and Lateral IMPRESSION: 1. Atelectatic changes in the lung bases. 2. Small right pleural effusion. Electronically Signed: Jerome Khoury MD at 15:14 EDT ,
[2023-08-24 15:53] LABS: Absolute Lymphocyte Count 1.13 X10^3/uL (0.83-4.51); Absolute Neutrophil Count 5.9 X10^3/uL (2.0-7.7); Basophil# 0.03 X10^3/uL; Basophil% 0.4 % (0-1); Eosinophil# 0.12 X10^3/uL; Eosinophils% 1.4 % (0-5); Hematocrit 46.1 % (40-54); Hemoglobin 14.8 g/dL (13.0-16.5); Lymphocyte # 1.13 X10^3/ul (0.83-4.51); Lymphocyte % 13.4 % (19-41); Mean Corp Hgb Conc 32.1 g/dL (32-36); Mean Corpuscular Volume 96.6 fL (80-94); Mean Platelet Vol. 11.2 fl (6.2-12.0); Monocyte# 1.26 X10^3/uL; Monocyte% 14.9 % (0-10); NRBC Flagged by Analyzer 0 % (0-5); Neutrophil # 5.87 X10^3/uL (2.7-7.7); Neutrophil % 69.5 % (47-70); Platelet Count 265 K/mm3 (150-450); RBC Distribution Width CV 13.1 % (11.6-14.6); RBC Distribution Width SD 46.6 fl (35.1-43.9); Red Blood Count 4.77 M/mm3 (4.6-6.2); White Blood Count 8.4 K/mm3 (4.4-11.0)
[2023-08-24 16:04] LABS: Anion Gap 6 (5-15); BUN 14 mg/dL (7-18); BUN/Creat Ratio 18.9 RATIO (10-20); Calcium,Total 8.9 mg/dL (8.5-10.1); Chloride 104 mmol/L (98-107); Creatinine, Serum 0.74 mg/dL (0.70-1.30); EST Glomerular Filtration Rate 108 mL/min (>60); Est Glom Filt Rate - Afr Amer 130 mL/min (>60); Glucose 99 mg/dL (74-106); Potassium 3.5 mmol/L (3.5-5.1); Sodium Level 138 mmol/L (136-145)
[2023-08-24 16:06] VITALS: BMI 25.9
[2023-08-24 16:13] LABS: BNP,B-Type NATRIURETIC PEPTIDE 181.6 pg/mL (0-100)
[2023-08-24 16:16] VITALS: O2SAT 92
[2023-08-24 16:17] VITALS: O2SAT 94
[2023-08-24] MEDS: Doxycycline 100 MG CAPSULE PO (16:20)
== END 2023-08-24 16:37 | disposition home or self-care (01) ==
PROVIDERS: Physician Assistant; Emergency Provider Emergency Medicine; PCP Family Medicine; Visit Provider Emergency Medicine
DX: J18.9 Pneumonia, unspecified organism (principal); I50.9 Heart failure, unspecified; Z87.891 Personal history of nicotine dependence; Z86.73 Personal history of transient ischemic attack (TIA), and cerebral infarction without residual deficits
CPT/HCPCS: 71046; 80048; 83880; 85025; 93005; 99283; A4216

== ENCOUNTER 2023-08-30 10:50 | Observation (INO) | payer MEDICARE, SELFPAY ==
[2023-08-30] VITALS (7 sets, daily range): BP systolic 117–153; BP diastolic 80–102; PULSE 74–113; RESP 14–23; TEMP 36–36.5; O2SAT 91–98; BMI 23.6; BMI 23.3
--- NOTE | 2023-08-30 11:45 | EKG12_ITS ---
Test Reason : sob Blood Pressure : / mmHG Vent. Rate : 104 BPM Atrial Rate : 326 BPM P-R Int : 000 ms QRS Dur : 080 ms QT Int : 372 ms P-R-T Axes : 000 054 047 degrees QTc Int : 489 ms Atrial flutter with variable A-V block with premature ventricular or aberrantly conducted complexes Abnormal ECG Confirmed by SELENA BAUER, SAW ([id number]), science editor GABINO MCKEON ([id number]) on 09/03/2023 8:02:55 AM Referred By: Confirmed By:SAW WALTERS MD
[2023-08-30 11:57] LABS: Absolute Lymphocyte Count 1.06 X10^3/uL (0.83-4.51); Absolute Neutrophil Count 5.8 X10^3/uL (2.0-7.7); Basophil# 0.04 X10^3/uL; Basophil% 0.5 % (0-1); Eosinophil# 0.06 X10^3/uL; Eosinophils% 0.7 % (0-5); Hematocrit 45.2 % (40-54); Hemoglobin 14.6 g/dL (13.0-16.5); Lymphocyte # 1.06 X10^3/ul (0.83-4.51); Lymphocyte % 12.8 % (19-41); Mean Corp Hgb Conc 32.3 g/dL (32-36); Mean Corpuscular Hgb 31.3 pg (27.0-32.0); Mean Platelet Vol. 11.5 fl (6.2-12.0); Monocyte# 1.27 X10^3/uL; Monocyte% 15.3 % (0-10); NRBC Flagged by Analyzer 0 % (0-5); Neutrophil # 5.81 X10^3/uL (2.7-7.7); Neutrophil % 70.1 % (47-70); POSITIVE MORPHOLOGY YES; Platelet Count 271 K/mm3 (150-450); RBC Distribution Width CV 13.3 % (11.6-14.6); RBC Distribution Width SD 47.5 fl (35.1-43.9); Red Blood Count 4.66 M/mm3 (4.6-6.2); White Blood Count 8.3 K/mm3 (4.4-11.0)
[2023-08-30 11:59] LABS: Differential Indicated SCAN CRITERIA MET
--- NOTE | 2023-08-30 12:05 | RAD_ITS ---
HISTORY: chest pain. TECHNIQUE: XR Chest 1 View. COMPARISON: 08/24/2023. FINDINGS: CARDIOMEDIASTINAL BORDERS: Cardiac silhouette upper limits of normal in size. Mediastinal contour unchanged with calcification of the aortic knob. Surgical clips in the epigastric region. LUNGS: Increased bibasilar opacities. PLEURA: Mild pleural effusions again seen. OSSEOUS STRUCTURES: Degenerative change. RAD/Chest 1 View (Portable) IMPRESSION: Mild pleural effusions with increased bibasilar atelectasis or pneumonia. Electronically Signed: Silva Soler MD at 12:19 EDT ,
[2023-08-30 12:13] LABS: Anion Gap 3 (5-15); BUN 10 mg/dL (7-18); BUN/Creat Ratio 14.6 RATIO (10-20); Chloride 104 mmol/L (98-107); Creatinine, Serum 0.68 mg/dL (0.70-1.30); EST Glomerular Filtration Rate 118 mL/min (>60); Est Glom Filt Rate - Afr Amer 143 mL/min (>60); Estimated Creatinine Clearance 64.36 ml/min; Glucose 114 mg/dL (74-106); Potassium 4.1 mmol/L (3.5-5.1); Sodium Level 137 mmol/L (136-145); Troponin-I HS 106 pg/mL (3.0-78.0)
[2023-08-30 12:44] LABS: BNP,B-Type NATRIURETIC PEPTIDE 185.5 pg/mL (0-100)
--- NOTE | 2023-08-30 12:47 | EDS_ITS ---
HPI History of Present Illness Chief Complaint: Shortness of Breath Narrative Narrative: 83-year-old male presenting with shortness of breath. He states that he was seen about 6 days ago for similar. He was placed on antibiotics and told he had pneumonia. He has not had any fevers or chills at home since he has been home. He does have a cough which is only having production of clear sputum. No fevers or chills. He does describe sweats. He has dyspnea on exertion and orthopnea. No lower extremity edema. He denies any chest pain. He states at this point it is difficult for him to take a shower put on his close because he becomes so fatigued. He states that he did vomit about 4 days ago 2 times but has not any problems since. He is able to eat and drink. No constipation or diarrhea. No urinary complaints. [facility] Medical History Acute bronchitis, unspecified Acute diastolic (congestive) heart failure Atrial fibrillation with rapid ventricular response (12/15/20) Bilateral pleural effusion COPD (chronic obstructive pulmonary disease) Essential (primary) hypertension History of CVA (cerebrovascular accident) rat exterminator current use of amiodarone Parkinson disease Paroxysmal atrial fibrillation Seizure disorder Weight gain Home Medications levetiracetam 750 mg tablet 750 mg PO BID seizures 12/15/20 [History Last Taken 01/09/21] aspirin 81 mg tablet,delayed release (Adult Aspirin Regimen) 81 mg PO DAILY 05/18/22 [History Last Taken Unknown] carbidopa 25 mg-levodopa 100 mg tablet 0.5 tab PO TID 08/17/22 [History Last Taken Unknown] cholecalciferol (vitamin D3) 25 mcg (1,000 unit) tablet 2,000 unit PO DAILY supplement 08/17/22 [History Last Taken Unknown] levothyroxine 25 mcg tablet 25 mcg PO DAILY 08/17/22 [History Last Taken Unknown] vitamin E (dl, acetate) 180 mg (400 unit) capsule 180 mg PO DAILY 08/17/22 [History Last Taken Unknown] albuterol sulfate 90 mcg/actuation aerosol inhaler (Proventil HFA) 2 puff inhalation Q6H PRN shortness of breath or wheezing #6.7 grams 09/23/22 [Rx Last Taken Unknown] metoprolol tartrate 25 mg tablet 25 mg PO BID #60 tabs 01/21/23 [Rx Last Taken Unknown] azithromycin 250 mg tablet 250 mg PO QDAY #6 tabs 08/21/23 [Rx Last Taken Unknown] benzonatate 200 mg capsule 200 mg PO QHS PRN cough #10 caps 08/21/23 [Rx Last Taken Unknown] carbidopa ER 50 mg-levodopa 200 mg tablet,extended release 1 tab PO QHS 08/22/23 [History Last Taken Unknown] doxycycline hyclate 100 mg capsule 100 mg PO BID 7 days #14 caps 08/24/23 [Rx Last Taken Unknown] doxycycline monohydrate 100 mg capsule 100 mg PO Q12H 08/30/23 [History Last Taken Unknown] Allergy/AdvReac Type Severity Reaction Status Date / Time No Known Allergies Allergy Verified 08/30/23 10:53 Family History Father Hypertension Mother Parkinsons disease Surgical History History of cardioversion (01/09/21) S/P appendectomy S/P cholecystectomy S/P exploratory laparotomy Social History household members: spouse Smoking Status: Former smoker how long ago did patient quit smoking: Quite remotely, but did smoke again x 1 month in 2020 but has since quit. alcohol intake: never substance use type: does not use ROS ROS ED Constitutional Constitutional ED: Denies chills, fever(s) or sweats Eyes Eyes: Denies blurry vision or change in vision ENT ENT ED: Denies ear pain or sore throat Cardiovascular Cardiovascular: Reports orthopnea; Denies chest pain, palpitations or racing heartbeat Respiratory/Chest Respiratory/Chest: Reports cough, dyspnea, dyspnea on exertion and orthopnea; Denies sputum Gastrointestinal Gastrointestinal: Denies abdominal pain, constipation, diarrhea, nausea or v omiting Genitourinary Genitourinary ED: Denies dysuria, hematuria or urinary frequency Musculoskeletal Musculoskeletal: Denies arthralgias, myalgias or neck pain Integumentary Denies abscess, Abrasions or rash Neurologic Neurologic: Denies headache(s), paresthesias or weakness Psychiatric Psychiatric: Denies anxiety, depression, suicidal ideation or suicidal thoughts Endocrine Endocrinology: Denies polydipsia or polyuria EXAM Physical Exam Const Vital Signs: 08/30/23 10:51 08/30/23 11:51 08/30/23 11:51 Temperature 97.7 F L Temperature Source Temporal Pulse Rate 79 Respiratory Rate 14 Respiratory Effort Normal Respiratory Depth Normal Respiratory Pattern Normal Blood Pressure 125/83 H Blood Pressure Mean 97 Pulse Ox 91 Oxygen Delivery Method Room Air Room Air Room Air 08/30/23 13:00 Temperature Temperature Source Pulse Rate 113 H Respiratory Rate 18 Respiratory Effort Respiratory Depth Respiratory Pattern Blood Pressure 153/100 H Blood Pressure Mean 117 Pulse Ox 98 Oxygen Delivery Method Room Air Positive well nourished General Appearance ED: NAD; Negative for pallor HEENT Reports moist mucous membranes atraumatic Eyes PERRL Resp normal respiratory effort Auscultation: rales diffuse Cardio regular rate and regular rhythm GI non-tender Extremity General Extremety ED: Negative for edema or tenderness General Extremity: Negative for edema Neuro oriented x3 and CN's II-XII intact bilaterally Sensorium / Orientation: alert Psych mental status grossly normal Skin no wounds and skin turgor normal General Skin Exam: Negative for jaundice or pallor MDM MDM MDM Narrative Medical decision making narrative: 83-year-old male presenting with dyspnea. He is describing orthopnea and dyspnea on exertion. He does have a cough reactive-appearing sputum and has been on antibiotics but has finished these. It does not like he is on doxycycline. Differential includes pneumonia, CHF, acute coronary syndrome, viral etiology, dehydration, electrolyte normalities. CBC was obtained to assess white blood cell count, hemoglobin, platelets. BMP to assess renal function and electrolytes. High-sensitivity troponin and EKG to assess for ischemia/dysrhythmia. BNP to assess for CHF. Chest x-ray to rule out pneumonia versus CHF. CBC shows a white count of 8.3. Hemoglobin stable 14.6. Platelets are normal at 271. Renal function within normal limits. High-sensitivity troponin is 106. BNP 185.5 and has not much changed. Chest x-ray my interpretation bilateral pleural effusions. The radiologist services and agrees states this could be a light atelectasis or pneumonia. The patient ambulated. He does not feel as if he can go home because he is so short of breath. Patient desaturated to 88% while ambulating. Patient was given 40 mg of Lasix. I discussed with the hospitalist I think this is most likely CHF. It looks like he did a round of azithromycin prior to doing doxycycline and he still having shortness of breath. Impression: 1. Dyspnea 2. CHF exacerbation 3. Elevated troponin Lab Data Attestation: I reviewed the patient's lab results. Labs: Laboratory Results - last 24 hr 08/30/23 11:49 WBC 8.3 RBC 4.66 Hgb 14.6 Hct 45.2 MCV 97.0 H MCH 31.3 MCHC 32.3 RDW Std Deviation 47.5 H RDW Coeff of Francis 13.3 Plt Count 271 MPV 11.5 Immature Gran % (Auto) 0.600 Neut % (Auto) 70.1 H Lymph % (Auto) 12.8 L [place] % (Auto) 15.3 H Eos % (Auto) 0.7 Baso % (Auto) 0.5 Absolute Neuts (auto) 5.8 Absolute Lymphs (auto) 1.06 Nucleated RBC % 0 Sodium 137 Potassium 4.1 Chloride 104 Carbon Dioxide 30.0 Anion Gap 3 L BUN 10 Creatinine 0.68 L Estim Creat Clear Calc 64.36 Est GFR (MDRD) Af Amer 143 Est GFR (MDRD) Non-Af 118 BUN/Creatinine Ratio 14.6 Glucose 114 H Calcium 9.0 Troponin I High Sens 106 H B-Natriuretic Peptide 185.5 H Radiography Diagnostic Testing: Clinical Impression(s) from Imaging Studies Chest X-Ray 08/30/23 12:05 IMPRESSION: Mild pleural effusions with increased bibasilar atelectasis or pneumonia. Electronically Signed: Silva Soler MD at 12:19 EDT , Discharge Plan Disposition Disposition: Acute Care Hospital [facility] Discharge Date/Time: 08/30/23 13:55
[2023-08-30] MEDS: Furosemide 40 MG/4 ML Vial IV (13:48)
--- NOTE | 2023-08-30 14:14 | PCM.HP.STD ---
HPI - General General Date of Admission: 08/30/23 HPI Narrative JOSSELIN GILLILAND, is a 83 M who presents to the hospital with continued and worsening shortness of breath. He states that he started feeling short of breath over 2 weeks ago and [facility] where he was diagnosed with pneumonia and started on azithromycin. 3 days later came to the ER because he had continued shortness of breath and was transition to twice daily doxycycline on 08/24/2023. Since that time he has had continued and worsening shortness of breath with increasing orthopnea. He does have a history of diastolic CHF and pulmonary hypertension. He is not requiring any oxygen while at rest and does not feel significantly short of breath at rest. In the ER chest x-ray was obtained which showed some mild bilateral pleural effusions and possible atelectasis. He is afebrile without a white count. 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 Parkinson disease Paroxysmal atrial fibrillation Seizure disorder Weight gain Home Medications levetiracetam 750 mg tablet 750 mg PO BID seizures 12/15/20 [History Last Taken 01/09/21] aspirin 81 mg tablet,delayed release (Adult Aspirin Regimen) 81 mg PO DAILY 05/18/22 [History Last Taken Unknown] carbidopa 25 mg-levodopa 100 mg tablet 0.5 tab PO TID 08/17/22 [History Last Taken Unknown] cholecalciferol (vitamin D3) 25 mcg (1,000 unit) tablet 2,000 unit PO DAILY supplement 08/17/22 [History Last Taken Unknown] levothyroxine 25 mcg tablet 25 mcg PO DAILY 08/17/22 [History Last Taken Unknown] vitamin E (dl, acetate) 180 mg (400 unit) capsule 180 mg PO DAILY 08/17/22 [History Last Taken Unknown] albuterol sulfate 90 mcg/actuation aerosol inhaler (Proventil HFA) 2 puff inhalation Q6H PRN shortness of breath or wheezing #6.7 grams 09/23/22 [Rx Last Taken Unknown] metoprolol tartrate 25 mg tablet 25 mg PO BID #60 tabs 01/21/23 [Rx Last Taken Unknown] azithromycin 250 mg tablet 250 mg PO QDAY #6 tabs 08/21/23 [Rx Last Taken Unknown] benzonatate 200 mg capsule 200 mg PO QHS PRN cough #10 caps 08/21/23 [Rx Last Taken Unknown] carbidopa ER 50 mg-levodopa 200 mg tablet,extended release 1 tab PO QHS 08/22/23 [History Last Taken Unknown] doxycycline hyclate 100 mg capsule 100 mg PO BID 7 days #14 caps 08/24/23 [Rx Last Taken Unknown] doxycycline monohydrate 100 mg capsule 100 mg PO Q12H 08/30/23 [History Last Taken Unknown] Allergy/AdvReac Type Severity Reaction Status Date / Time No Known Allergies Allergy Verified 08/30/23 10:53 Family History Father Hypertension Mother Parkinsons disease Surgical History History of cardioversion (01/09/21) S/P appendectomy S/P cholecystectomy S/P exploratory laparotomy Social History household members: spouse Smoking Status: Former smoker how long ago did patient quit smoking: Quite remotely, but did smoke again x 1 month in 2020 but has since quit. alcohol intake: never substance use type: does not use ROS Constitutional Constitutional: Denies chills, fatigue, fever(s) or malaise Eyes Eyes: Denies blurry vision ENT HEENT: Denies headache(s) or nasal discharge Cardiovascular Cardiovascular: Reports orthopnea; Denies chest pain, dyspnea on exertion or syncope Respiratory/Chest Respiratory/Chest: Reports shortness of breath at rest and shortness of breath with exertion; Denies cough Gastrointestinal Gastrointestinal: Denies constipation, diarrhea, nausea or vomiting Genitourinary Genitourinary: Denies dysuria Neurologic Neurologic: Denies focal weakness, numbness or tremor(s) Psychiatric Psychiatric: Denies anxiety or depression Vital Signs Vital Signs Vital Signs: 08/30/23 10:51 08/30/23 11:51 08/30/23 11:51 Temperature 97.7 F L Temperature Source Temporal Pulse Rate 79 Respiratory Rate 14 Respiratory Effort Normal Respiratory Depth Normal Respiratory Pattern Normal Blood Pressure 125/83 H Blood Pressure Mean 97 Pulse Ox 91 Oxygen Delivery Method Room Air Room Air Room Air 08/30/23 13:00 08/30/23 13:53 Temperature Temperature Source Pulse Rate 113 H 113 H Respiratory Rate 18 23 H Respiratory Effort Respiratory Depth Respiratory Pattern Blood Pressure 153/100 H 126/80 H Blood Pressure Mean 117 95 Pulse Ox 98 94 Oxygen Delivery Method Room Air Room Air Weight Weight: 178 lb 9.191 oz Body Mass Index (BMI) 23.6 Physical Exam Narrative General: Alert, Oriented x3, Cooperative, No apparent distress HEENT: Atraumatic, PERRLA, EOMI, Normocephalic Oral: Moist Mucosa Neck: Supple, No JVD Lungs: Diminished, Normal air movement, No rhonchi, No wheeze, No rales Cardiovascular: Irregular rate, irregular rhythm, Normal S1, Normal S2, No murmurs Abdomen: Soft, Non Tender, Non-Distended, No Hepato-splenomegaly Extremities: No edema, Capillary Refill Less than 3 Seconds Skin: No rashes, No breakdown Musculoskeletal: No Tenderness to Palpation of Joints or Extremities Neurological: Cranial nerves II-XII grossly intact, Motor Exam 5/5 strength throughout, Sensory exam intact to light touch and pain Psych/Mental Status: Normal Affect, Appropriate Results Lab / Micro Data 08/30/23 11:49 08/30/23 11:49 Labs: Laboratory Results - last 24 hr 08/30/23 11:49: WBC 8.3, RBC 4.66, Hgb 14.6, Hct 45.2, MCV 97.0 H, MCH 31.3, MCHC 32.3, RDW Std Deviation 47.5 H, RDW Coeff of Francis 13.3, Plt Count 271, MPV 11.5, Immature Gran % (Auto) 0.600, Neut % (Auto) 70.1 H, Lymph % (Auto) 12.8 L, [place] % (Auto) 15.3 H, Eos % (Auto) 0.7, Baso % (Auto) 0.5, Absolute Neuts (auto) 5.8, Absolute Lymphs (auto) 1.06, Nucleated RBC % 0, Sodium 137, Potassium 4.1, Chloride 104, Carbon Dioxide 30.0, Anion Gap 3 L, BUN 10, Creatinine 0.68 L, Estim Creat Clear Calc 64.36, Est GFR (MDRD) Af Amer 143, Est GFR (MDRD) Non-Af 118, BUN/Creatinine Ratio 14.6, Glucose 114 H, Calcium 9.0, Troponin I High Sens 106 H, B-Natriuretic Peptide 185.5 H Radiology Impression Chest X-Ray 08/30/23 12:05 IMPRESSION: Mild pleural effusions with increased bibasilar atelectasis or pneumonia. Electronically Signed: Silva Soler MD at 12:19 EDT , Assessment & Plan Assessment/Plan (1) Shortness of breath: PLAN: Plan 1. Shortness of breath secondary to diastolic CHF exacerbation in setting of pulmonary hypertension ? Last echo was on 04/23/2022 with an EF of 60% and PA systolic pressure 55 mmHg and stage II diastolic dysfunction ? Continue with Lasix ? Will likely need to be discharged on diuretic ? We will repeat echo ? Not currently requiring any oxygen at rest but will likely need an amatory pulse ox prior to discharge 2. A-fib/HTN ? His heart rate while here has been less than 120 so we will hold off on any IV rate medications ? Continue with his home metoprolol ? Hopefully with diuretics his heart rate will improve ? He is not on anticoagulation other than aspirin this likely secondary to being a fall risk from his Parkinson's disease 3. Parkinson's disease/seizure disorder ? Stable ? Continue with his Sinemet ? Continue with Keppra 4. Hypothyroidism ? We will obtain a TSH as his last was a year ago ? Continue with his Synthroid DVT: Ambulation 75 minutes was spent on direct patient care, including documentation as well as chart review and collaboration with colleagues Charges/Coding Visit Charges Inpatient E&M: 07081 Init Hosp L3
--- NOTE | 2023-08-30 14:20 | ECHOD_ITS ---
Reason For Study: CHF Procedure This was a 2D Doppler, Color Flow transthoracic echocardiogram. Exam performed portable in patient room. Left Ventricle Normal LV size. Mild concentric left ventricular hypertrophy. Left ventricular systolic function is normal. The estimated ejection fraction is 60 %. No regional wall motion abnormalities noted. Right Ventricle Normal RV size. Normal systolic function. Atria The left atrium is moderately enlarged. The right atrium is mildly enlarged. Mitral Valve Bileaflet diffuse mitral valve thickening. Equivocal mitral valve prolapse, bileaflet. Moderate (2+) eccentric mitral valve insufficiency. Tricuspid Valve Normal tricuspid valve. Moderate (2+) tricuspid valve insufficiency. Pulmonary artery systolic pressure is 57 mmHg. Moderate pulmonary hypertension. Aortic Valve Trisinus/trileaflet aortic valve. Pulmonic Valve Normal pulmonic valve. Great Vessels Normal aortic root. The pulmonary artery is normal size. Normal inferior vena cava. Pericardium/Pleural No pericardial effusion. MMode/2D Measurements & Calculations LVIDd: 3.9 cm IVSd: 1.3 cm Ao root diam: 3.1 cm LVIDs: 2.6 cm LVPWd: 1.3 cm RVDd: 3.7 cm FS: 34.2 % LAV(MOD-bp): 71.4 ml LVAd ap4: 17.4 cm2 SV(MOD-sp4): 19.7 ml LAV(MOD-bp) Indexed: 35.0 ml/m2 LVLd ap4: 7.0 cm LAV(MOD-sp2): 52.6 ml EDV(MOD-sp4): 35.6 ml LAV(MOD-sp4): 81.5 ml EDV(sp4-el): 36.7 ml LVAs ap4: 10.9 cm2 LVLs ap4: 6.5 cm ESV(MOD-sp4): 15.9 ml ESV(sp4-el): 15.3 ml EF(MOD-sp4): 55.3 % EF(sp4-el): 58.3 % SV(sp4-el): 21.4 ml LA A4 area: 25.9 cm2 LA dimension(2D): 4.5 cm RA A4 area: 21.7 cm2 Doppler Measurements & Calculations MV E max jose: 157.0 cm/sec Lat Peak E' Jose: 8.7 cm/sec Med Peak E' Jose: 6.0 cm/sec E/E' lat: 18.0 E/E' med: 26.3 MV V2 max: 179.9 cm/sec Ao V2 max: 113.5 cm/sec LV V1 max: 80.0 cm/sec MV max P.0 mmHg Ao max P.3 mmHg LV V1 max P.6 mmHg MV V2 mean: 91.7 cm/sec Ao V2 mean: 85.1 cm/sec LV V1 mean P.5 mmHg MV mean P.3 mmHg Ao mean P.1 mmHg LV V1 mean: 60.1 cm/sec MV V2 VTI: 38.4 cm Ao V2 VTI: 19.3 cm LV V1 VTI: 12.7 cm AV (velocity ratio): 0.66 PA V2 max: 49.9 cm/sec TR max jose: 357.6 cm/sec TR max P.2 mmHg ECHO/Echo Complete Interpretation Summary Normal LV size. Left ventricular systolic function is normal. The estimated ejection fraction is 60 %. Mild concentric left ventricular hypertrophy. The left atrium is moderately enlarged. Pulmonary artery systolic pressure is 57 mmHg. Moderate pulmonary hypertension. Ordering Physician: Yonatan Morrissey Referring Physician: Vu Blackman Performed By: Sandi Munson, RDCS, RVT
[2023-08-30 15:16] LABS: Thyroid Stim Hormone (TSH) 3.27 uIU/mL (0.358-3.74); Troponin-I HS 105 pg/mL (3.0-78.0)
[2023-08-30] MEDS: Carbidopa/Levodopa 25/100 Tablet PO (16:13)
[2023-08-30 18:34] LABS: Troponin-I HS 108 pg/mL (3.0-78.0)
[2023-08-30] MEDS: CARBIDOPA/LEVODOPA CR 50/200 Tablet PO (21:58)
[2023-08-30] MEDS: Metoprolol Tartrate 25 MG Tablet PO (21:59)
[2023-08-30] MEDS: levETIRAcetam 750 MG Tablet PO (21:59)
[2023-08-31] VITALS (16 sets, daily range): BP systolic 97–152; BP diastolic 77–120; PULSE 62–111; RESP 18–20; TEMP 36.4–36.7; O2SAT 90–99; BMI 22.8
[2023-08-31] MEDS: Levothyroxine 25 MCG TABLET PO (05:27)
[2023-08-31 07:58] LABS: Absolute Lymphocyte Count 1.03 X10^3/uL (0.83-4.51); Absolute Neutrophil Count 4.5 X10^3/uL (2.0-7.7); Basophil# 0.03 X10^3/uL; Basophil% 0.4 % (0-1); Eosinophils% 1.5 % (0-5); Hematocrit 45.8 % (40-54); Hemoglobin 14.5 g/dL (13.0-16.5); Lymphocyte # 1.03 X10^3/ul (0.83-4.51); Mean Corp Hgb Conc 31.7 g/dL (32-36); Mean Corpuscular Hgb 30.8 pg (27.0-32.0); Mean Corpuscular Volume 97.2 fL (80-94); Mean Platelet Vol. 11.8 fl (6.2-12.0); Monocyte# 1.18 X10^3/uL; Monocyte% 17.2 % (0-10); NRBC Flagged by Analyzer 0 % (0-5); Neutrophil # 4.49 X10^3/uL (2.7-7.7); Neutrophil % 65.6 % (47-70); Platelet Count 238 K/mm3 (150-450); RBC Distribution Width CV 13.4 % (11.6-14.6); RBC Distribution Width SD 47.7 fl (35.1-43.9); Red Blood Count 4.71 M/mm3 (4.6-6.2); White Blood Count 6.9 K/mm3 (4.4-11.0)
[2023-08-31 08:14] LABS: Anion Gap 5 (5-15); BUN 14 mg/dL (7-18); BUN/Creat Ratio 21.3 RATIO (10-20); Chloride 107 mmol/L (98-107); Creatinine, Serum 0.66 mg/dL (0.70-1.30); EST Glomerular Filtration Rate 123 mL/min (>60); Est Glom Filt Rate - Afr Amer 149 mL/min (>60); Estimated Creatinine Clearance 63.48 ml/min; Glucose 113 mg/dL (74-106); Potassium 3.6 mmol/L (3.5-5.1); Sodium Level 139 mmol/L (136-145)
[2023-08-31] MEDS: Furosemide 40 MG/4 ML Vial IV ×3 (08:21→18:10)
[2023-08-31] MEDS: Carbidopa/Levodopa 25/100 Tablet PO ×3 (08:21→15:55)
[2023-08-31] MEDS: Aspirin E.C. 81 MG Tablet PO (08:22)
[2023-08-31] MEDS: 0.9% Saline Lock 10 ML Syringe IV ×4 (08:24→18:10)
[2023-08-31] MEDS: levETIRAcetam 750 MG Tablet PO ×2 (08:32→21:15)
[2023-08-31] MEDS: Metoprolol Tartrate 25 MG Tablet PO ×2 (08:32→11:22)
--- NOTE | 2023-08-31 09:16 | CASEMGMT ---
Social Work SW performed chart review; LW on file as of 2013 and updated HCPOA on file as of 2020. Patient's HCPOA is patient's daughter, Doris Mace and alternate is patient's son in law Rashaad Mace. Lisbeth Mariscal PANELBOARD ASSEMBLER, DIANE
--- NOTE | 2023-08-31 09:57 | CT_ITS ---
STUDY: CTA CHEST REASON FOR EXAM: Male, 83 years old. SOB RADIATION DOSAGE (If Supplied By Facility): CTDIvol = ( 13.48 ) mGy, DLP = ( 468.28 ) mGycm TECHNIQUE: The examination was performed with the intravenous administration of IV 100mL Isovue-370. Post-processing of the angiographic images was performed, with multiplanar reformation and 3D reconstruction. Individualized dose optimization techniques were used for this CT. COMPARISON: CTA December 15, 2020. FINDINGS: Normal enhancement of the main pulmonary artery and right and left pulmonary arteries. Normal enhancement of the bilateral peripheral pulmonary arteries. There is no demonstrated pulmonary embolism. CAD raises question of pulmonary embolus but this appears to correspond to beam hardening artifact between the superior vena cava and the right main pulmonary artery. Normal thoracic aorta and visualized great vessels. There is no demonstrated aortic dissection. Moderate pericardial effusion versus pericardial thickening. Normal mediastinum. Normal hilar regions. Normal visualized trachea and bronchi. The lungs are well expanded. Large bilateral pleural effusions. Moderate bibasilar infiltrates and/or atelectasis. There is moderate centrilobular emphysema of the upper lobes. Normal chest wall structures. Normal osseous structures. Normal visualized upper abdomen. The pleural effusions are stable as compared to the prior study. CT/CTA Chest W/WO Contrast IMPRESSION: No demonstrated pulmonary embolism or arterial dissection. Large bilateral pleural effusions with moderate bibasilar atelectasis or infiltrate. Moderate pericardial effusion versus pericardial thickening. Electronically Signed: Humberto Hampton MD at 12:17 EDT ,
--- NOTE | 2023-08-31 12:04 | PN.HOSP_ITS ---
Reason for Visit Reason for Visit: Shortness of Breath Subjective Subjective Mr. Moncada is an 83-year-old male who presented to the emergency department at [facility] on 08/30/2023 with worsening shortness of breath. He has had progressively worsening shortness of breath over the 2 weeks and went to [facility] where he was diagnosed with pneumonia and started on azithromycin. He came to the emergency department 3 days later because he had continued shortness of breath and was transition to twice daily doxycycline on 08/24/2023. His symptoms have persisted and actually worsened. He has increasing shortness of breath with increasing orthopnea. He does have a history of diastolic heart failure and pulmonary hypertension on previous echocardiogram. He never required any oxygen and was on room air while at rest and did not complain of significant shortness of breath while at rest. His indicates he had increased coughing. He has had no fevers or chills, no leukocytosis and no elevated differential. My suspicion is extremely low for pneumonia. His does indicated he intermittently coughs after eating and has done so for a long time. He does have a potential diagnosis of Parkinson's and work-up is in progress. He does not appear to have any significant respiratory distress at the time of my evaluation and he is currently on room air. Objective Data Objective Data Vital Signs: Vital Signs Temp Pulse Resp BP Pulse Ox O2 Del Method 98.0 F 73 18 144/120 H 97 Room Air 08/31/23 08:30 08/31/23 11:22 08/31/23 08:30 08/31/23 11:22 08/31/23 08:30 08/31/23 08:30 Oxygen Delivery Method Room Air Weight: 78.8 kg Body Mass Index (BMI) 22.8 Intake & Output: Intake and Output for Last 24 Hours 08/29/23 08/30/23 08/31/23 23:59 23:59 23:59 Intake Total 240 / 340 340 / 340 Output Total 1200 / 1500 600 / 600 Balance -960 / -1160 -260 / -260 Lab / Micro Data 08/31/23 07:27 08/31/23 07:27 Labs: Laboratory Results - last 24 hr 08/30/23 11:49: Sodium 137, Potassium 4.1, Chloride 104, Carbon Dioxide 30.0, Anion Gap 3 L, BUN 10, Creatinine 0.68 L, Estim Creat Clear Calc 64.36, Est GFR (MDRD) Af Amer 143, Est GFR (MDRD) Non-Af 118, BUN/Creatinine Ratio 14.6, Glucose 114 H, Calcium 9.0, Troponin I High Sens 106 H, B-Natriuretic Peptide 185.5 H 08/30/23 14:45: Troponin I High Sens 105 H, TSH 3.27 08/30/23 17:19: Troponin I High Sens 108 H 08/31/23 07:27: WBC 6.9, RBC 4.71, Hgb 14.5, Hct 45.8, MCV 97.2 H, MCH 30.8, MCHC 31.7 L, RDW Std Deviation 47.7 H, RDW Coeff of Francis 13.4, Plt Count 238, MPV 11.8, Immature Gran % (Auto) 0.300, Neut % (Auto) 65.6, Lymph % (Auto) 15.0 L, [place] % (Auto) 17.2 H, Eos % (Auto) 1.5, Baso % (Auto) 0.4, Absolute Neuts (auto) 4.5, Absolute Lymphs (auto) 1.03, Nucleated RBC % 0, Sodium 139, Potassium 3.6, Chloride 107, Carbon Dioxide 27.0, Anion Gap 5, BUN 14, Creatinine 0.66 L, Estim Creat Clear Calc 63.48, Est GFR (MDRD) Af Amer 149, Est GFR (MDRD) Non-Af 123, BUN/Creatinine Ratio 21.3 H, Glucose 113 H, Calcium 9.0 Micro: Microbiology 08/31/23 11:00 Nasal Secretion SARS-CoV-2 Antigen (Rapid) - Final Radiography Diagnostic Testing: Radiology Impression Chest X-Ray 08/30/23 12:05 IMPRESSION: Mild pleural effusions with increased bibasilar atelectasis or pneumonia. Electronically Signed: Silva Soler MD at 12:19 EDT , Echocardiogram 08/30/23 14:20 Interpretation Summary Normal LV size. Left ventricular systolic function is normal. The estimated ejection fraction is 60 %. Mild concentric left ventricular hypertrophy. The left atrium is moderately enlarged. Pulmonary artery systolic pressure is 57 mmHg. Moderate pulmonary hypertension. Ordering Physician: Yonatan Morrissey Referring Physician: Vu Blackman Performed By: Sandi Munson, RDCS, RVT Physical Exam Const alert, oriented x3, no apparent distress, average body habitus and well nourished Constitutional Narrative: Elderly, white male, sitting up in bed, appears comfortable, currently on room air, at bedside HEENT head/scalp atraumatic and moist oral mucous membranes HEENT Narrative: Dentition is poor, Mallampati is 2, no thrush Head and Scalp: normocephalic Eyes PERRL, EOMs intact bilaterally and conjunctivae normal Eyes Narrative: No scleral icterus Neck no lymphadenopathy and supple Neck Narrative: Trachea midline, no thyroid enlargement Resp normal respiratory effort, no retractions and no use of accessory muscles Resp Narrative: Crackles at the right base, diffusely diminished otherwise but no other adventitious sounds identified Auscultation: crackles; Negative for rhonchi or wheezes Cardio S1 normal heart sound, S2 normal heart sound, no rub, no gallops and no clicks Cardio Narrative: Mild tachycardia with irregularly irregular rhythm, 1 out of 6 systolic murmur GI normal to inspection, nondistended, normoactive bowel sounds, soft to palpation and non-tender Extremity no clubbing, cyanosis or edema Extremity Narrative: Pedal pulses are 2+ Skin no rashes or lesions noted, no wounds, skin turgor normal, no jaundice, no petechiae and no mottling Neuro oriented x3, CN's II-XII intact bilaterally, moves all extremities and no focal motor deficits Speech: speech normal Psych affect normal Psych Narrative: Pleasant, interacts normally Assessment & Plan Assessment/Plan (1) Paroxysmal atrial fibrillation with rapid ventricular response: (2) Shortness of breath: (3) Pleural effusion: (4) Elevated troponin I level: PLAN: Plan Shortness of breath/cough--> suspect multifactorial -EKG was overall unremarkable other than for small right pleural effusion however CTA of the chest shows definitive bilateral effusions with the right side being greater as well as evidence of COPD in the lung parenchyma that is visible -Final report is pending -Effusions appear stable when compared to previous CTA from 2020 -We will make diuresis more aggressive at 40 mg IV twice daily -Patient also in A-fib with RVR will increase metoprolol to better control heart rate -Speech therapy to evaluate to rule out any aspiration his does report some coughing with eating -Check COVID and respiratory viral panel -We will check ambulatory oxygen as patient is currently on room air -Add scheduled DuoNebs and continue as needed albuterol -Will definitely need pulmonary follow-up as an outpatient Acute on chronic heart failure with preserved ejection fraction -Restrict sodium intake -Restrict fluid intake -Accurate I's and O's -Daily weights -We will schedule Lasix -Echocardiogram shows EF of 60% with normal wall motion however he has concentric LVH and diastolic dysfunction as well as pulmonary artery systolic pressure 57 mmHg indicating moderate pulmonary hypertension Bilateral pleural effusion -Right greater than left -We will make diuresis more aggressive -We will follow chest x-ray again in the morning -May require thoracentesis however would follow after aggressive diuresis as I do not anticipate this is going to be parapneumonic or empyema Pulmonary artery hypertension -Suspect related to pulmonary disease -Diuresis as noted above -Needs pulmonary medicine follow-up Paroxysmal atrial fibrillation with RVR -Patient with history of A-fib and has had previous DCCV -Increase metoprolol from 25 mg p.o. twice daily to 50 mg p.o. twice daily -Patient is not anticoagulated due to history of falls and fall risk with Parkinson's disease -Continue to monitor on telemetry Mild troponin elevation -Troponins are elevated and stable but much improved compared to previous -No chest pain -No EKG changes -Likely related to A-fib with RVR and heart failure -This was discussed with cardiology prior to admission and they felt likely related to his elevated heart rate and heart failure as well COPD -Patient needs spacer as reports he does not correctly use his inhaler at home -We will use nebulizers here -Add scheduled DuoNebs -Needs outpatient PFTs and pulmonary medicine follow-up Parkinson's disease -Continue carbidopa levodopa -Continue outpatient work-up -Family indicates MRI is pending History of seizures -Continue home Keppra Hypothyroidism -Continue home levothyroxine DVT prophylaxis -Subcu enoxaparin 40 daily CODE STATUS Full code Charges/Coding Visit Charges Inpatient E&M: 03622 Subs Hosp L3
--- NOTE | 2023-08-31 16:02 | CASEMGMT ---
VERONICA CM in to discuss ABRAHAM form with patient. RN CM explained ABRAHAM form, patient voiced understanding. Pt signed form and filed in chart. Pt provided with a copy of signed ABRAHAM form. Patient had no further questions or concerns at this time.
[2023-08-31] MEDS: Ipratropium/Albuterol Sulfate 3 ML AMPUL.NEB INHALATION (19:27)
[2023-08-31] MEDS: Metoprolol Tartrate 50 MG Tablet PO (21:15)
[2023-08-31] MEDS: CARBIDOPA/LEVODOPA CR 50/200 Tablet PO (21:15)
--- NOTE | 2023-08-31 21:22 | NURSING ---
pt placed on 2L of oxygen overnight d/t occasional 88-89% saturation on RA while sleeping. Pt now w/ 95% saturation on 2L of oxygen. no further concerns at this time.
[2023-09-01] VITALS (8 sets, daily range): BP systolic 97–131; BP diastolic 48–68; PULSE 79–104; RESP 18; TEMP 36.5–36.7; O2SAT 90–95; BMI 22.8
--- NOTE | 2023-09-01 05:45 | RAD_ITS ---
INDICATION: Effusion EXAMINATION/TECHNIQUE: X-RAY - XR Chest 1 View COMPARISON: August 30, 2023. FINDINGS: LINES/DEVICES: None. LUNGS: Left basilar patchy airspace opacification with scattered linear atelectasis. Improved aeration in the right lower lung with decreased atelectasis. Trace left effusion. No pneumothorax. No consolidation, edema or effusion. No pneumothorax. MEDIASTINUM AND CARDIOVASCULAR STRUCTURES: Cardiac silhouette not enlarged. Mild aortic atherosclerosis. BONES AND SOFT TISSUES: Unremarkable. RAD/Chest 1 View (Portable) IMPRESSION: Improved aeration in the lung bases with mild residual atelectasis or airspace disease in the lateral left lower lung. Electronically Signed: Tristan Smith MD at 6:49 EDT ,
[2023-09-01] MEDS: Levothyroxine 25 MCG TABLET PO (05:56)
[2023-09-01] MEDS: Carbidopa/Levodopa 25/100 Tablet PO ×2 (06:31→11:41)
[2023-09-01 07:13] LABS: ALB/GLOB Ratio 0.8 RATIO (0.9-2.4); AST(SGOT) 16 U/L (15-37); Alanine Aminotransfer ALT/SGPT 15 U/L (16-61); Albumin, Serum 2.9 g/dL (3.2-5.0); Alkaline Phosphatase 97 U/L (45-117); Anion Gap 8 (5-15); BUN 19 mg/dL (7-18); BUN/Creat Ratio 27.7 RATIO (10-20); Calcium,Total 8.8 mg/dL (8.5-10.1); Chloride 103 mmol/L (98-107); Creatinine, Serum 0.69 mg/dL (0.70-1.30); EST Glomerular Filtration Rate 117 mL/min (>60); Est Glom Filt Rate - Afr Amer 142 mL/min (>60); Estimated Creatinine Clearance 63.24 ml/min; Globulin 3.8 g/dL (2.2-4.2); Glucose 111 mg/dL (74-106); Phosphorus 3.7 mg/dL (2.5-4.9); Potassium 3.3 mmol/L (3.5-5.1); Protein, Total 6.7 g/dL (6.4-8.2); Sodium Level 139 mmol/L (136-145); Thyroid Stim Hormone (TSH) 3.78 uIU/mL (0.358-3.74)
[2023-09-01] MEDS: Ipratropium/Albuterol Sulfate 3 ML AMPUL.NEB INHALATION ×2 (07:24→13:35)
[2023-09-01 08:41] LABS: T4 Free Direct 1.46 ng/dL (0.76-1.46)
[2023-09-01] MEDS: Potassium Chloride Oral Tablet 20 MEQ 60 MEQ PO (09:07)
[2023-09-01] MEDS: levETIRAcetam 750 MG Tablet PO (09:08)
[2023-09-01] MEDS: Aspirin E.C. 81 MG Tablet PO (09:08)
[2023-09-01] MEDS: 0.9% Saline Lock 10 ML Syringe IV (09:08)
[2023-09-01] MEDS: Furosemide 40 MG/4 ML Vial IV (09:08)
[2023-09-01] MEDS: Metoprolol Tartrate 50 MG Tablet PO (10:08)
--- NOTE | 2023-09-01 10:54 | DS.PCM_ITS ---
Providers Date of Admission: 08/30/23 Date of Discharge: 09/01/23 Primary Care Physician: Dr. Vu Blackman MD Reason For Visit: CHF Diagnosis Discharge Diagnosis (1) Paroxysmal atrial fibrillation with rapid ventricular response: Status: Acute Code(s): I48.0 - Paroxysmal atrial fibrillation (2) Shortness of breath: Status: Acute Code(s): R06.02 - Shortness of breath (3) Pleural effusion: Status: Acute Code(s): J90 - Pleural effusion, not elsewhere classified (4) Elevated troponin I level: Status: Acute Code(s): R79.89 - Other specified abnormal findings of blood chemistry Plan Shortness of breath/cough--> suspect multifactorial -EKG was overall unremarkable other than for small right pleural effusion however CTA of the chest shows definitive bilateral effusions with the right side being greater as well as evidence of COPD in the lung parenchyma that is visible -Final report is pending -Effusions appear stable when compared to previous CTA from 2020 -We will make diuresis more aggressive at 40 mg IV twice daily -Patient also in A-fib with RVR will increase metoprolol to better control heart rate -Speech therapy to evaluate to rule out any aspiration his does report some coughing with eating -Check COVID and respiratory viral panel -We will check ambulatory oxygen as patient is currently on room air -Add scheduled DuoNebs and continue as needed albuterol -Will definitely need pulmonary follow-up as an outpatient Acute on chronic heart failure with preserved ejection fraction -Restrict sodium intake -Restrict fluid intake -Accurate I's and O's -Daily weights -We will schedule Lasix -Echocardiogram shows EF of 60% with normal wall motion however he has concentric LVH and diastolic dysfunction as well as pulmonary artery systolic pressure 57 mmHg indicating moderate pulmonary hypertension Bilateral pleural effusion -Right greater than left -We will make diuresis more aggressive -We will follow chest x-ray again in the morning -May require thoracentesis however would follow after aggressive diuresis as I do not anticipate this is going to be parapneumonic or empyema Pulmonary artery hypertension -Suspect related to pulmonary disease -Diuresis as noted above -Needs pulmonary medicine follow-up Paroxysmal atrial fibrillation with RVR -Patient with history of A-fib and has had previous DCCV -Increase metoprolol from 25 mg p.o. twice daily to 50 mg p.o. twice daily -Patient is not anticoagulated due to history of falls and fall risk with Parkinson's disease -Continue to monitor on telemetry Mild troponin elevation -Troponins are elevated and stable but much improved compared to previous -No chest pain -No EKG changes -Likely related to A-fib with RVR and heart failure -This was discussed with cardiology prior to admission and they felt likely related to his elevated heart rate and heart failure as well COPD -Patient needs spacer as reports he does not correctly use his inhaler at home -We will use nebulizers here -Add scheduled DuoNebs -Needs outpatient PFTs and pulmonary medicine follow-up Parkinson's disease -Continue carbidopa levodopa -Continue outpatient work-up -Family indicates MRI is pending History of seizures -Continue home Keppra Hypothyroidism -Continue home levothyroxine DVT prophylaxis -Subcu enoxaparin 40 daily CODE STATUS Full code Medications at Discharge Home Medications levetiracetam 750 mg tablet 750 mg PO BID seizures 12/15/20 aspirin 81 mg tablet,delayed release (Adult Aspirin Regimen) 81 mg PO DAILY heart health 05/18/22 carbidopa 25 mg-levodopa 100 mg tablet 0.5 tab PO TID parkinsons 08/17/22 cholecalciferol (vitamin D3) 25 mcg (1,000 unit) tablet 2,000 unit PO DAILY supplement 08/17/22 levothyroxine 25 mcg tablet 25 mcg PO DAILY thyroid 08/17/22 vitamin E (dl, acetate) 180 mg (400 unit) capsule 180 mg PO DAILY vitamin 08/17/22 albuterol sulfate 90 mcg/actuation aerosol inhaler (Proventil HFA) 2 puff inhalation Q6H PRN shortness of breath or wheezing #6.7 grams 09/23/22 benzonatate 200 mg capsule 200 mg PO QHS PRN cough #10 caps 08/21/23 carbidopa ER 50 mg-levodopa 200 mg tablet,extended release 1 tab PO QHS parkinsons 08/22/23 furosemide 40 mg tablet (Lasix) 40 mg PO DAILY #30 tabs 09/01/23 metoprolol tartrate 50 mg tablet 50 mg PO BID #60 tabs 09/01/23 potassium chloride 20 mEq tablet,extended release 20 meq PO DAILY #30 tabs 09/01/23 Hospital Course Operations None Procedures 2-D Echocardiogram, EKG and - (Chest x-ray/CTA of the chest) Summary of Care Provided Minutes Spent on Discharge: 38 Hospital Course: Mr. Moncada is an 83-year-old white male who presented to emergency department at [facility] on 08/30/2023 with worsening shortness of breath. Patient reported on presentation that he started having worsening shortness of breath about 2 weeks ago and also developed a cough. [facility] where he was diagnosed with a pneumonia and started on azithromycin. 3 days later on 08/24/2023 he came to the emergency department because his shortness of breath persisted and he was transitioned to doxycycline. Since that time he had ongoing shortness of breath that was worse with exertion and worsening orthopnea. He had a known history of diastolic heart failure and pulmonary hypertension as well as a history of atrial fibrillation that was paroxysmal in nature. He was on a beta-loli 25 mg a day and has required cardioversion previously but is not anticoagulated due to fall risk. Upon presentation he was not requiring any oxygen while at rest and did not feel significantly short of breath at rest however with exertion he had worsening dyspnea. In the emergency department he had a chest x-ray that showed bilateral effusions and possible atelectasis. He was afebrile without an elevated white count. Troponin was mildly elevated but stable throughout his hospital course and he has had much higher troponins previously for which work-up was unremarkable. He follows with Dr. Ferrer from cardiology at baseline. His indicated he had increased coughing even being on the antibiotics. He does have a history of tobacco abuse and has never been worked up for COPD and only takes an albuterol inhaler at home at baseline. BNP was also elevated on admission so he was admitted to the telemetry floor where his heart rates were noted to be elevated and he was in A- fib. Heart rates were noted to be no higher than 120 but fairly consistently between 100-120. For this, I increased his beta-loli from 25 to 50 mg p.o. daily which did help his heart rate dropped into the 80s. We also placed him on IV diuretics. Echocardiogram demonstrated a normal EF at 60% with no wall motion abnormalities however he did have LVH that was mild and concentric as well as a moderately enlarged left atrium and pulmonary systolic pressure of 57 mmHg. I obtained a CTA of his chest that demonstrated no pulmonary embolus or arterial dissection however he had large bilateral pleural effusions and moderate bibasilar atelectasis due to compression as well as a moderate pericardial effusion versus pericardial thickening. He also had significant emphysematous changes in bilateral lung lerma that were more significant at the apex. There was no pericardial effusion noted on his echo. I did compare this CT from a previous CT in 2020 and he was noted to have fairly sizable pleural effusions at that time as well. He has never had a thoracentesis and is not on diuretics at baseline. I made his diuretics more aggressive and repeated his chest x-ray in the a.m. of 09/01/2023. His bibasilar effusion looked improved and he was subjectively feeling better. He reported his cough had improved as well. We did an ambulatory pulse ox prior to discharge and he was stable on room air with oxygen saturations at 93% at rest on room air and 90% with exert ion. The patient was also able to exert himself most more extensively than the day prior. I have asked him to get a follow-up basic metabolic profile as we will continue Lasix 40 mg daily and I have placed him on potassium 20 mg daily. He is to call his primary care physician to have this ordered for the next 5 to 7 days. I have also asked him to follow-up with pulmonary medicine as he will need PFTs when she is clinically more stabilized and they will need to reevaluate him with a repeat chest x-ray versus CT scan to see if we actually need to do a thoracentesis or if he is improving with adequate diuresis. I have asked him to to follow-up with Dr. Ferrer from cardiology to reassess his heart rate with his atrial fibrillation. Patient was able to be discharged in stable condition on 09/01/2023. Prescriptions for the Lasix, increased beta-loli dose, and potassium were sent to his local pharmacy. Discharge diagnoses: Shortness of breath Cough Acute on chronic heart failure with preserved ejection fraction-improved Bilateral pleural effusions-improved Pulmonary artery hypertension PAF with RVR-heart rates better Mild troponin elevation-suspect stress-induced ischemia and type II NSTEMI COPD Parkinson's disease History of seizures Hypothyroidism Physical Exam Narrative Patient indicating he feels much better today. Shortness of breath is improved drastically and he was able to lie flat last night to sleep. Cough is improved. Const alert, oriented x3, no apparent distress, average body habitus and well nourished Constitutional Narrative: Elderly, white male, sitting up in bed, appears comfortable, currently on room air, at bedside General Appearance: cooperative, comfortable, well kempt and well developed Orientation / Consciousness: awake, oriented to person, oriented to place and oriented to time Exam Limitations: no limitations HEENT normocephalic, head/scalp atraumatic and moist oral mucous membranes HEENT Narrative: Dentition is fair, Mallampati is 2, patient has mild to moderate hearing loss Eyes PERRL, EOMs intact bilaterally and conjunctivae normal Eyes Narrative: No scleral icterus Neck no lymphadenopathy and supple Neck Narrative: Trachea midline, no thyroid enlargement Resp normal respiratory effort, no retractions and no use of accessory muscles Resp Narrative: Crackles at right base have resolved, diffusely diminished Auscultation: crackles; Negative for rhonchi or wheezes Cardio regular rate, S1 normal heart sound, S2 normal heart sound, no rub, no gallops and no clicks; Negative for regular rhythm or no murmurs Cardio Narrative: Irregular irregular rhythm with regular rate, systolic murmur 1 out of 6 GI normal to inspection, nondistended, normoactive bowel sounds, soft to palpation and non-tender Extremity no clubbing, cyanosis or edema Extremity Narrative: Pedal pulses are 2+ Skin no rashes or lesions noted, no wounds, skin turgor normal, no jaundice, no petechiae and no mottling Neuro oriented x3, CN's II-XII intact bilaterally, moves all extremities and no focal motor deficits Speech: speech normal Psych affect normal Psych Narrative: Pleasant, interacts normally Weight / BMI Weight Weight: 78.5 kg Body Mass Index (BMI) 22.8 ABG / Lab / Microbiology Data 08/31/23 07:27 09/01/23 05:10 Laboratory: Laboratory Results - last 24 hr 09/01/23 05:10: Sodium 139, Potassium 3.3 L, Chloride 103, Carbon Dioxide 28.0, Anion Gap 8, BUN 19 H, Creatinine 0.69 L, Estim Creat Clear Calc 63.24, Est GFR (MDRD) Af Amer 142, Est GFR (MDRD) Non-Af 117, BUN/Creatinine Ratio 27.7 H, Glucose 111 H, Calcium 8.8, Phosphorus 3.7, Magnesium 2.0, Total Bilirubin 0.40, AST 16, ALT 15 L, Alkaline Phosphatase 97, Total Protein 6.7, Albumin 2.9 L, Globulin 3.8, Albumin/Globulin Ratio 0.8 L, TSH 3.78 H, Free T4 1.46 Microbiology: Microbiology 08/31/23 11:13 Mucosa - Nasopharyngeal Respiratory Panel (PCR) - Final 08/31/23 11:00 Nasal Secretion SARS-CoV-2 Antigen (Rapid) - Final Radiography Diagnostic Testing: Radiology Impression Chest CTA 08/31/23 09:57 IMPRESSION: No demonstrated pulmonary embolism or arterial dissection. Large bilateral pleural effusions with moderate bibasilar atelectasis or infiltrate. Moderate pericardial effusion versus pericardial thickening. Electronically Signed: Humberto Hampton MD at 12:17 EDT , Chest X-Ray 09/01/23 05:45 IMPRESSION: Improved aeration in the lung bases with mild residual atelectasis or airspace disease in the lateral left lower lung. Electronically Signed: Tristan Smith MD at 6:49 EDT , D/C Instructions Discharge Diet: Low fat / Low cholesterol and 2000 mg Sodium Diet Discharge Activity: Return to Normal Activity Meaningful Use Info Meaningful Use Diagnoses (Choose all that apply): CHF CHF GISELLA/ARB ordered at discharge?: No Reason GISELLA/ARB not ordered?: Not indicated Documented LVEF (%): 60 Discharge Plan Admission Admit Date/Time: 08/30/23 14:11 Primary Reason for Your Visit: Shortness of breath Attending Provider: Lata Sagastume Primary Care Provider: Vu Blackman Consulting Providers: Yonatan Morrissey Instructions Additional Instructions / Restrictions: 1. Take Lasix at noon every day 2. Please call your primary care doctor and ask them to order a basic metabolic profile to be done within the next 5 to 7 days to recheck your kidney function and potassium levels since we started a water pill 3. Please call cardiology and pulmonology on Saturday as noted below to set up appointments to be seen for hospital follow-up Discharge Orders/Prescriptions Prescriptions: New metoprolol tartrate 50 mg Tablet 50 mg PO BID Qty: 60 1RF furosemide [Lasix] 40 mg tablet 40 mg PO DAILY Qty: 30 1RF potassium chloride 20 mEq tablet extended release 20 meq PO DAILY Qty: 30 1RF Continued aspirin [Adult Aspirin Regimen] 81 mg tablet,delayed release (DR/EC) 81 mg PO DAILY vitamin E (dl, acetate) 180 mg (400 unit) capsule 180 mg PO DAILY levothyroxine 25 mcg tablet 25 mcg PO DAILY Patient Comments: TAKE 1 TABLET BY MOUTH ONCE DAILY. TAKE ON EMPTY STOMACH. FOR THYROID. carbidopa-levodopa 25-100 mg tablet 0.5 tab PO TID Patient Comments: TAKE 0.5 TABLETS BY MOUTH THREE TIMES DAILY. TAKE THREE TIMES DAILY WITH MEALS. carbidopa-levodopa 50-200 mg tablet extended release 1 tab PO QHS Patient Comments: TAKE 1 TABLET AT 9PM (BEDTIME) benzonatate 200 mg capsule 200 mg PO QHS PRN (Reason: cough) Qty: 10 0RF levetiracetam 750 MG tablet 750 mg PO BID cholecalciferol (vitamin D3) 25 mcg (1,000 unit) tablet 2,000 unit PO DAILY albuterol sulfate [Proventil HFA] 90 mcg/actuation HFA aerosol inhaler 2 puff inhalation Q6H PRN (Reason: shortness of breath or wheezing) Qty: 6.7 1RF Discontinued azithromycin 250 mg tablet 250 mg PO QDAY Qty: 6 0RF Rx Instructions: 2 tablets today, then 1 tablet daily on days 2 through 5 doxycycline hyclate 100 mg capsule 100 mg PO BID 7 Days Qty: 14 0RF doxycycline monohydrate 100 mg capsule 100 mg PO Q12H Patient Comments: TAKE 1 CAPSULE BY MOUTH TWICE A DAY metoprolol tartrate 25 mg tablet 25 mg PO BID Qty: 60 11RF Referrals / Follow Up: Kulwinder Luis MD [Med Staff - Active Staff] - Within 2 Weeks Brady Ferrer MD [Med Staff - Active Staff] - Within 1 Month Vu Blackman MD [Primary Care Provider] - In 1 Week Disposition Disposition (needs filled in before D/C Order can be placed): Home, Self Care Charges/Coding Visit Charges Inpatient E&M: 56432 Disch Hosp >30min
== END 2023-09-01 13:46 | disposition home or self-care (01) ==
LOC: ED 13:24 → PCU 14:19
PROVIDERS: Admitting Provider Family Medicine; Emergency Provider Student in an Organized Health Care Education/Training Program; PCP Family Medicine; Visit Provider Internal Medicine
DX: I11.0 Hypertensive heart disease with heart failure (principal); J44.9 Chronic obstructive pulmonary disease, unspecified; I50.33 Acute on chronic diastolic (congestive) heart failure; I48.0 Paroxysmal atrial fibrillation; G40.909 Epilepsy, unspecified, not intractable, without status epilepticus; R77.8 Other specified abnormalities of plasma proteins; Z79.82 Long term (current) use of aspirin; G20.A1 Parkinson's disease without dyskinesia, without mention of fluctuations; E03.9 Hypothyroidism, unspecified; Z87.891 Personal history of nicotine dependence; Z79.899 Other long term (current) drug therapy; Z79.890 Hormone replacement therapy; J90 Pleural effusion, not elsewhere classified
CPT/HCPCS: 36415; 71045; 71275; 80048; 80053; 83735; 83880; 84100; 84439; 84443; 84484; 85025; 87633; 87811; 92610; 93005; 93306; 94640; 94664; 96374; 96376; 97110; 97116; 97162; 97165; 99221; 99285; Q9967; A4216; G0378; J1940

== ENCOUNTER 2025-08-19 11:19 | Inpatient (IN) | payer MEDICARE, SELFPAY ==
[2025-08-19] VITALS (26 sets, daily range): BP systolic 76–146; BP diastolic 56–115; PULSE 69–134; RESP 12–23; TEMP 36.3–36.7; O2SAT 84–97; BMI 19.1; BMI 18.2
--- NOTE | 2025-08-19 11:40 | RAD_ITS ---
PROCEDURE: CHEST PA AND LATERAL 08/19/2025 REASON FOR EXAM: COUGH TECHNIQUE: Procedure Code: RADCXR Modality: DX Procedure: CHEST PA AND LATERAL COMPARISON: August 31, 2023 FINDINGS: Hardware: EKG leads are seen. Postsurgical changes in the epigastric region. Heart: Enlarged. Mediastinum: Aortic atherosclerosis. Lungs: Emphysema is present. Mild scarring inferior lingula and both lower lobes. Small volume pleural fluid. Bones: Degenerative changes are identified within the thoracic spine. RAD/Chest PA and Lateral IMPRESSION: 1. Emphysema 2. Scant pleural fluid. Mild scarring. No consolidation. Reading Location: [id number]
--- NOTE | 2025-08-19 11:40 | EKG12_ITS ---
Test Reason : TACHY Blood Pressure : */* mmHG Vent. Rate : 122 BPM Atrial Rate : 388 BPM P-R Int : * ms QRS Dur : 82 ms QT Int : 292 ms P-R-T Axes : * 81 32 degrees QTcB Int : 416 ms Atrial flutter with variable A-V block Abnormal ECG Confirmed by YOLI BAUER, LELA ([id number]), editor map SONIYA BARRETT ([id number]) on 08/23/2025 6:00:53 AM Referred By: EFRAIN/JULIAN Confirmed By: LELA KENT MD
--- NOTE | 2025-08-19 11:46 | ED.VIS.DYS ---
HPI History of Present Illness Chief Complaint: Palpitations Informant: patient and spouse/S.O. Limited: dementia Narrative Narrative: Patient is 85-year-old male with history of Parkinson disease, proximal atrial fibrillation (been on metoprolol but not on anticoagulation due to increased risk of falls), hypothyroidism, hypertension and pleural effusion presenting with worsening cough and shortness of breath. He actually had an appointment to see his primary care doctor, Dr. Blackman today and there he was noted to be in A-fib with RVR and sent to the emergency room. Patient states he has been having a cough that seems to worsen the evening and is keeping him up at night for the past 1 to 2 weeks.'s been productive of white sputum. No fevers but is having sweats in the evening. He has been very fatigued. He denies any lightheadedness, chest pain, nausea or vomiting. Not reporting change in his bowel movements. Has had similar symptoms in the past and had fluid around his heart/lungs. Chart review shows that patient was admitted 08/30/2023 through 09/01/2023 for A-fib with RVR, pleural effusion and elevated troponin. He was diuresed with Lasix, his metoprolol was increased and also thought to have some underlying COPD. EF was 60% at that time with normal wall motion however he did have concentric LVH and diastolic dysfunction and elevated pulmonary artery systolic pressure indicating pulmonary hypertension. Cardiology note from 05/04/2025 with Riley dumont reviewed. He was seen for hospital follow-up and thought to had too much of his thyroid medication which was causing elevated troponins. Per this note he has longstanding persistent atrial fibrillation however anticoagulation declines and risk of falls outweigh benefits. [facility] Medical History Elevated troponin I level Paroxysmal atrial fibrillation with rapid ventricular response Acute bronchitis, unspecified History of CVA (cerebrovascular accident) Weight gain Paroxysmal atrial fibrillation intermediate current use of amiodarone Parkinson disease COPD (chronic obstructive pulmonary disease) Acute diastolic (congestive) heart failure Atrial fibrillation with rapid ventricular response (12/15/20) Essential (primary) hypertension Seizure disorder Bilateral pleural effusion Home Medications ?Medication ?Instructions ?Recorded ?Last Taken ?Type levetiracetam 750 mg tablet 750 mg PO BID seizures 12/15/20 01/09/21 History levothyroxine 25 mcg tablet 25 mcg PO DAILY thyroid 08/17/22 Unknown History vitamin E (dl, acetate) 180 mg 180 mg PO DAILY vitamin 08/17/22 Unknown History (400 unit) capsule albuterol sulfate 90 mcg/actuation 2 puff inhalation Q6H PRN 09/23/22 Unknown Rx aerosol inhaler (Proventil HFA) shortness of breath or wheezing #6.7 grams folic acid 1 mg tablet 1 mg PO QDAY 02/17/24 Unknown History cholecalciferol (vitamin D3) 10 10 mcg PO QDAY 05/04/25 Unknown History mcg (400 unit) chewable tablet xqknnxct-jkpchuly-fxuav acid 400 tab PO 05/04/25 08/19/25 History mcg-vit K 20 mcg-lycop 300 mcg tablet (One-A-Day Men's Multivitamin) potassium chloride 20 mEq 20 meq PO DAILY #90 tabs 05/04/25 Unknown Rx tablet,extended release Allergy/AdvReac Type Severity Reaction Status Date / Time No Known Allergies Allergy Verified 08/19/25 11:23 Family History Father Hypertension Mother Parkinsons disease Surgical History S/P exploratory laparotomy S/P cholecystectomy S/P appendectomy History of cardioversion (01/09/21) Social History household members: spouse Smoking Status: Former smoker how long ago did patient quit smoking: Quite remotely, but did smoke again x 1 month in 2020 but has since quit. alcohol intake: never substance use type: does not use ROS ROS ED Constitutional Constitutional ED: Reports sweats; Denies chills Cardiovascular Cardiovascular: Denies chest pain or palpitations Respiratory/Chest Respiratory/Chest: Reports cough, dyspnea and dyspnea on exertion Gastrointestinal Gastrointestinal: Denies abdominal pain, diarrhea, melena, nausea or vomiting Genitourinary Genitourinary ED: Denies dysuria Musculoskeletal Musculoskeletal: Denies arthralgias or myalgias Integumentary Denies rash Neurologic Neurologic: Reports weakness Hematologic/Lymphatic Hematologic/Lymphatic: Denies easy bleeding or easy bruising EXAM Physical Exam Const Vital Signs: 08/19/25 11:21 08/19/25 11:23 08/19/25 11:35 Temperature 97.8 F 97.4 F L Temperature Source Oral Oral Pulse Rate 118 H 134 H Respiratory Rate 20 H 20 H Respiratory Effort Normal Blood Pressure 146/101 H 137/100 H Blood Pressure Mean 116 112 Pulse Ox 97 96 Oxygen Delivery Method Room Air Room Air 08/19/25 11:40 08/19/25 12:23 08/19/25 13:00 Temperature 98.1 F 97.9 F Temperature Source Oral Oral Pulse Rate 132 H 87 Respiratory Rate 20 H 20 H Respiratory Effort Blood Pressure 124/92 H 124/84 H Blood Pressure Mean 102 97 Pulse Ox 97 96 96 Oxygen Delivery Method Room Air Room Air Room Air 08/19/25 14:00 08/19/25 14:37 Temperature 97.8 F Temperature Source Pulse Rate 112 H 100 Respiratory Rate 12 22 H Respiratory Effort Blood Pressure 142/101 H 133/101 H Blood Pressure Mean 114 111 Pulse Ox 95 95 Oxygen Delivery Method Room Air Positive well nourished and well developed General Appearance ED: well developed and NAD; Negative for pallor HEENT Reports dry mucous membranes HEENT Narrative: Normal oropharynx, uvula is midline. Cerumen bilateral ear canals but does not completely occluded tympanic membrane. Visualize tympanic membranes are normal. Mouth ED: Yes dry mucous membranes Mouth: dry mucous membranes Eyes PERRL Neck supple and no JVD Resp Resp Narrative: Mildly tachypneic. No conversational dyspnea present. Slightly diminished breath sounds at the right base with crackles present Cardio no murmurs Rate: tachycardic Rhythm: abnormal rhythm irregularly irregular GI non-tender and non-distended Extremity normal to inspection General Extremety ED: Negative for edema General Extremity: Negative for edema Neuro Sensorium / Orientation: alert and oriented to person Motor Exam: general weakness Psych mental status grossly normal Skin no wounds General Skin Exam: Negative for jaundice or pallor MDM MDM MDM Narrative Medical decision making narrative: Patient is evaluated for worsening cough and shortness of breath. He is in atrial fibrillation/flutter with RVR. Hemodynamically stable at this time. Differential includes is not limited to arrhythmia, acute heart failure, pleural effusion, pericardial effusion, electrolyte derangement, thyroid abnormality and pneumonia. Patient's give metoprolol for rate control. He currently appears euvolemic without JVD or pedal edema. Patient has some slight improvement of heart rate but no significant rate control with IV metoprolol (a total of 15 mg given 5 mg aliquots). Given bolus of diltiazem with further rate control and started on diltiazem drip. Workup however is largely normal the emergency room with normal CBC, BMP, lactate, high-sensitivity troponins, TSH and BNP. Patient is given dose of IV Lasix in the ER as I suspect he does have a component of fluid overload likely triggering his A-fib RVR today. Case discussed with hospitalist for admission, Dr. Patterson. is agreeable with this plan of care. Patient remains hemodynamically stable at this time. Lab Data Attestation: I reviewed the patient's lab results. Labs: Laboratory Results - last 24 hr 08/19/25 08/19/25 08/19/25 11:36 11:55 13:46 WBC 9.2 RBC 4.50 L Hgb 14.4 Hct 42.7 MCV 94.9 H MCH 32.0 MCHC 33.7 RDW Std Deviation 46.3 H RDW Coeff of Francis 13.2 Plt Count 294 MPV 10.4 Immature Gran % (Auto) 0.300 Neut % (Auto) 67.1 Lymph % (Auto) 12.3 L [place] % (Auto) 15.0 H Eos % (Auto) 5.0 Baso % (Auto) 0.3 Absolute Neuts (auto) 6.2 Absolute Lymphs (auto) 1.13 Nucleated RBC % 0 Sodium 137 Potassium 3.8 Chloride 103 Carbon Dioxide 22.6 Anion Gap 11 BUN 8 Creatinine 0.54 L Estim Creat Clear Calc 64.07 Est GFR (MDRD) Non-Af 98 BUN/Creatinine Ratio 14.7 Glucose 103 H Lactic Acid 1.4 Calcium 9.0 Troponin T High Sens 15 Troponin T Hi Sens 2 Hr 17 NT pro BNP II 1142 TSH 3.680 Radiography Chest X-Ray - ED: 2 View, Read by ED Physician, Read by Radiologist, Chronic Changes and Right Effusion Diagnostic Testing: Clinical Impression(s) from Imaging Studies Chest X-Ray 08/19/25 11:40 IMPRESSION: 1. Emphysema 2. Scant pleural fluid. Mild scarring. No consolidation. Reading Location: [id number] Rhythm Strip Rhythm Strip: A-fib Rate: 122 Ectopy: None EKG Initial EKG: Attestation: I personally reviewed and interpreted this EKG as follows: Interpretation: Atrial Flutter Comments: Atrial flutter with variable AV block at a rate of 122 bpm Normal axis Normal ST segment Compared to prior EKG 05/04/2025, he now is in RVR but no other significant changes Prior EKG tracings: available for review Prior: Changed Management Discussion w/another healthcare provider: Hospitalist Critical Care Time Critical Care Time: Yes Critical care time (excluding procedures): 30-74 minutes (31), Discussing w/Patient &/or Family/[employer], Arranging Admission or Transfer, Performing Direct Patient Care at Bedside and - (Multiple doses of IV medications for rate control for atrial fibrillation) Discharge Plan Dx/Rx/DC Orders Clinical Impression: Atrial fibrillation with RVR, Cough Disposition Disposition: Acute Care [facility]
[2025-08-19 11:57] LABS: Hematocrit 42.7 % (40-54); Hemoglobin 14.4 g/dL (13.0-16.5); Immature Granulocytes Count 0.030 X10^3/uL (0.0-0.0); Mean Corp Hgb Conc 33.7 g/dL (32-36); Mean Corpuscular Volume 94.9 fL (80-94); Mean Platelet Vol. 10.4 fl (6.2-12.0); NRBC Flagged by Analyzer 0 % (0-5); Platelet Count 294 K/mm3 (150-450); RBC Distribution Width CV 13.2 % (11.6-14.6); RBC Distribution Width SD 46.3 fl (35.1-43.9); Red Blood Count 4.50 M/mm3 (4.6-6.2); White Blood Count 9.2 K/mm3 (4.4-11.0)
[2025-08-19 12:41] LABS: Anion Gap 11 (5-15); BUN 8 mg/dL (4-19); BUN/Creat Ratio 14.7 RATIO (10-20); Calcium,Total 9.0 mg/dL (7.6-11.0); Carbon Dioxide 22.6 mmol/L (21.0-32.0); Chloride 103 mmol/L (98-108); Estimated Creatinine Clearance 64.07 ml/min (50-250); Glucose 103 mg/dL (70-99); Potassium 3.8 mmol/L (3.3-5.1)
[2025-08-19 12:56] LABS: Pro- Brain NATRIURETIC PEPTIDE 1142 pg/mL (<=1800); Troponin T High Sensitivity 15 ng/L (<=22)
[2025-08-19 14:10] LABS: Troponin T High Sens 2 HR 17 ng/L (<=22)
[2025-08-19] MEDS: Furosemide 20 MG/2 ML VIAL IV (14:36)
--- NOTE | 2025-08-19 14:47 | PCM.HP.STD ---
[facility] - General General Date of Admission: 08/19/25 Date of Service: 08/19/25 Chief Complaint: Worsening cough with shortness of breath and fatigue HPI Narrative JOSSELIN GILLILAND, is a 85 M who presented to [facility] ED on 08/19/2025 with worsening cough with shortness of breath and fatigue. Patient lives at home with his . Medical history significant for Parkinson's disease with mild cognitive impairment, paroxysmal A-fib not on anticoagulation due to increased risk of falls, chronic HFpEF, seizure disorder, hypothyroidism and COPD/emphysema. Patient reports worsening cough with clear sputum production, intermittent shortness of breath and fatigue over the past 1 to 2 weeks. Notes that the cough has been keeping him and his up at night. Notes that he had similar symptoms in the past and was hospitalized here for A-fib with RVR with volume overload. On chart review, patient is hospitalized here in August 2023 with a similar presentation. He was found to be in A-fib with RVR with HFpEF exacerbation and bilateral pleural effusions, and this improved with rate control and diuresis. On arrival to the ED today he was noted to be in A-fib with RVR with rate to the 130s. He otherwise was normotensive, afebrile and oxygen saturation was stable in the mid to high 90s on room air at rest. Chest x-ray showed scant pleural fluid but otherwise no vascular congestion or other concerning findings noted. BNP normal and troponins negative x 3. CBC and BMP were benign. He was given an IV Cardizem bolus with initial rate improvement to the 90s to 100s but rate then worsened again to the 120s to 130s. He was given doses of IV Lopressor without much improvement. He was then started on a Cardizem drip and hospitalist was contacted for admission. I saw the patient at bedside in the ED, no other family was present. Patient was mildly fatigued appearing but otherwise sitting back comfortably in bed and in no acute distress. He was answering questions appropriately for me. He denied any chest pain or palpitations. Noted good urine output after being given a dose of IV Lasix in the ED. Denied any other acute concerns currently. Will be admitted for further management. [facility] Medical History Elevated troponin I level Paroxysmal atrial fibrillation with rapid ventricular response Acute bronchitis, unspecified History of CVA (cerebrovascular accident) Weight gain Paroxysmal atrial fibrillation intermediate teacher current use of amiodarone Parkinson disease COPD (chronic obstructive pulmonary disease) Acute diastolic (congestive) heart failure Atrial fibrillation with rapid ventricular response (12/15/20) Essential (primary) hypertension Seizure disorder Bilateral pleural effusion Home Medications ?Medication ?Instructions ?Recorded ?Last Taken ?Type levetiracetam 750 mg tablet 750 mg PO BID seizures 12/15/20 01/09/21 History levothyroxine 25 mcg tablet 25 mcg PO DAILY thyroid 08/17/22 Unknown History vitamin E (dl, acetate) 180 mg 180 mg PO DAILY vitamin 08/17/22 Unknown History (400 unit) capsule albuterol sulfate 90 mcg/actuation 2 puff inhalation Q6H PRN 09/23/22 Unknown Rx aerosol inhaler (Proventil HFA) shortness of breath or wheezing #6.7 grams folic acid 1 mg tablet 1 mg PO QDAY 02/17/24 Unknown History cholecalciferol (vitamin D3) 10 10 mcg PO QDAY 05/04/25 Unknown History mcg (400 unit) chewable tablet dvqqpedh-ibpwctga-kvivj acid 400 4 tab PO DAILY Supplement 05/04/25 08/19/25 History mcg-vit K 20 mcg-lycop 300 mcg tablet (One-A-Day Men's Multivitamin) potassium chloride 20 mEq 20 meq PO DAILY #90 tabs 05/04/25 Unknown Rx tablet,extended release Allergy/AdvReac Type Severity Reaction Status Date / Time No Known Allergies Allergy Verified 08/19/25 16:36 Family History Father Hypertension Mother Parkinsons disease Surgical History S/P exploratory laparotomy S/P cholecystectomy S/P appendectomy History of cardioversion (01/09/21) Social History household members: spouse Smoking Status: Former smoker how long ago did patient quit smoking: Quite remotely, but did smoke again x 1 month in 2020 but has since quit. alcohol intake: never substance use type: does not use ROS Constitutional Constitutional: Reports fatigue; Denies chills, fever(s) or weakness Cardiovascular Cardiovascular: Denies chest pain, dyspnea on exertion, edema, lightheadedness, palpitations or rapid heart rate Respiratory/Chest Respiratory/Chest: Reports cough, productive cough and shortness of breath with exertion; Denies shortness of breath at rest or wheezing Gastrointestinal Gastrointestinal: Denies abdominal pain Musculoskeletal Musculoskeletal: Denies arthralgias or myalgias Neurologic Neurologic: Denies dizziness, focal weakness or headache(s) Vital Signs Vital Signs Vital Signs: 08/19/25 11:21 08/19/25 11:23 08/19/25 11:35 Temperature 97.8 F 97.4 F L Temperature Source Oral Oral Pulse Rate 118 H 134 H Respiratory Rate 20 H 20 H Respiratory Effort Normal Blood Pressure 146/101 H 137/100 H Blood Pressure Mean 116 112 Pulse Ox 97 96 Oxygen Delivery Method Room Air Room Air 08/19/25 11:40 08/19/25 12:23 08/19/25 13:00 Temperature 98.1 F 97.9 F Temperature Source Oral Oral Pulse Rate 132 H 87 Respiratory Rate 20 H 20 H Respiratory Effort Blood Pressure 124/92 H 124/84 H Blood Pressure Mean 102 97 Pulse Ox 97 96 96 Oxygen Delivery Method Room Air Room Air Room Air 08/19/25 14:00 08/19/25 14:37 Temperature 97.8 F Temperature Source Pulse Rate 112 H 100 Respiratory Rate 12 22 H Respiratory Effort Blood Pressure 142/101 H 133/101 H Blood Pressure Mean 114 111 Pulse Ox 95 95 Oxygen Delivery Method Room Air Weight Weight: 65.9 kg Body Mass Index (BMI) 19.1 Physical Exam Const alert, oriented x3 and no apparent distress Constitutional Narrative: Elderly male, thin and somewhat chronically ill-appearing, mildly fatigued appearing, otherwise sitting back comfortably in bed, alert and oriented x 3, answering questions appropriately, in no acute distress. General Appearance: cooperative and comfortable HEENT normocephalic, head/scalp atraumatic, hearing grossly normal bilaterally, nasal mucous membranes and turbinates normal and moist oral mucous membranes Eyes PERRL, EOMs intact bilaterally and conjunctivae normal Neck full ROM Chest inspection of chest normal Resp normal respiratory effort, normal air movement, no use of accessory muscles and clear to auscultation bilaterally Cardio no murmurs and peripheral pulses 2+ throughout Cardio Narrative: A-fib with RVR. GI normal to inspection, nondistended, normoactive bowel sounds, soft to palpation, non-tender and non-distended Back/Spine normal ROM Extremity normal to inspection, full ROM and no pedal edema Skin no rashes or lesions noted Psych mental status grossly normal Results Lab / Micro Data 08/19/25 11:36 08/19/25 11:36 Labs: Laboratory Results - last 24 hr 08/19/25 11:36: WBC 9.2, RBC 4.50 L, Hgb 14.4, Hct 42.7, MCV 94.9 H, MCH 32.0, MCHC 33.7, RDW Std Deviation 46.3 H, RDW Coeff of Francis 13.2, Plt Count 294, MPV 10.4, Immature Gran % (Auto) 0.300, Neut % (Auto) 67.1, Lymph % (Auto) 12.3 L, [place] % (Auto) 15.0 H, Eos % (Auto) 5.0, Baso % (Auto) 0.3, Absolute Neuts (auto) 6.2, Absolute Lymphs (auto) 1.13, Nucleated RBC % 0, Sodium 137, Potassium 3.8, Chloride 103, Carbon Dioxide 22.6, Anion Gap 11, BUN 8, Creatinine 0.54 L, Estim Creat Clear Calc 64.07, Est GFR (MDRD) Non-Af 98, BUN/Creatinine Ratio 14.7, Glucose 103 H, Calcium 9.0, Troponin T High Sens 15, NT pro BNP II 1142, TSH 3.680 08/19/25 11:55: Lactic Acid 1.4 08/19/25 13:46: Troponin T Hi Sens 2 Hr 17 Rhythm Strip Rhythm Strip: A-fib Rate: 122 Ectopy: None Imaging Radiology Impression Chest X-Ray 08/19/25 11:40 IMPRESSION: 1. Emphysema 2. Scant pleural fluid. Mild scarring. No consolidation. Reading Location: [id number] Assessment & Plan Assessment/Plan (1) Atrial fibrillation with RVR: PLAN: Plan Patient is an 85-year-old male who presented to [facility] ED on 08/19/2025 with worsening cough with shortness of breath and fatigue. 1. Paroxysmal A-fib with RVR, history of chronic HFpEF ? Admit under inpatient status to PCU. Known history of paroxysmal A-fib, follows with outpatient cardiology. Not on anticoagulation due to fall risk. Has been on Lopressor in the past for rate control but most recently has not required any rate control. Presented with A-fib RVR to the 130s. May be secondary to viral URI given symptoms as below. Given Cardizem bolus and doses of IV Lopressor in the ED with only mild improvement in rate so was started on Cardizem drip. Continue Cardizem drip with goal rate less than 110. Will initiate p.o. Lopressor 25 mg twice daily as well. Had similar presentation in August 2023 and had volume overload requiring diuresis. Echo at that time showed EF 60%, mild concentric LV hypertrophy, moderate enlarged LA, no other concerning findings. Patient with no volume overload noted on this admission, chest x-ray clear with no hypoxia, and BNP normal so low concern for heart failure exacerbation. 2. Productive cough with mild shortness of breath and fatigue ? May be secondary to viral URI versus very mild pulmonary vascular congestion secondary to A-fib with RVR as above. Respiratory PCR panel ordered. Chest x-ray unremarkable and patient stable on room air at rest. Symptomatic management. 3. Parkinson's disease with chronic debility and mild cognitive impairment ? Patient lives at home with . Alert and oriented x 3 in the ED and answering questions appropriately. Should be fine to return home on discharge, will hold off on case management and therapy consults at this time. 4. COPD/emphysema ? Not on home oxygen. Only on albuterol inhaler as needed at home. During prior hospitalization in September 09 recommendation was given to have outpatient PFTs and pulmonary medicine follow-up done but does not appear patient has done these things. Stable on room air on admit, not in acute exacerbation. Continue home albuterol inhaler as needed. 5. Seizure disorder ? Continue home levetiracetam. DVT prophylaxis: Lovenox CODE STATUS: DNR CCA, DNI Expected disposition: Home, TBD Total clinical time spent by myself addressing the patient's medical issues, reviewing all the data, and collaborating with patient's care team: 83 minutes. Charges/Coding Visit Charges Inpatient E&M: 80914 Init Hosp L3
[2025-08-19] MEDS: Diltiazem 125 MG in Dextrose 5%-Water (100mL Bag) 100 ML IV (14:48)
[2025-08-19 15:55] LABS: Magnesium 1.9 mg/dL (1.5-2.2)
[2025-08-19 16:17] LABS: Troponin T High Sens 4 HR 15 ng/L (<=22)
[2025-08-20] VITALS (24 sets, daily range): BP systolic 94–129; BP diastolic 54–100; PULSE 60–112; RESP 14–22; TEMP 36.5–36.6; O2SAT 91–100
--- OUTSIDE RECORDS SUMMARY | 2025-08-20 00:38 | XMS RPT_ITS | CCD ---
Author Organization [facility] Care Team Providers Care Bricklayer Helper Name Role Phone Vu Pulido MD Primary Care Provider Dr. Kaiden Durham III Referring Provider Dr. Brady Ferrer Attending Provider Care Physician, No Primary Primary Care Provider Unavailable Vu Pulido MD Primary Care Provider Vu Pulido MD Primary Care Provider STEFFEN DE LA GARZA MD Referring Unavailable STEFFEN DE LA GARZA MD Attending Unavailable PHYSICIAN, NONE Primary Care Unavailable LEIGH ESPINOZA Admitting Unavailable Dr. Vu Pulido Primary Care Provider Dr. Vu Pulido Referring Provider Roof TABLET REPAIR, TABLET REPAIRFlorenceC Riley Henriquez Attending Provider Vu Pulido MD Primary Care Provider Dr. Vu Pulido Primary Care Provider Dr. Vu Pulido Referring Provider RAYMOND Santamaria Attending Provider Dr. Brady Ferrer Attending Provider RAYMOND Raza Attending Provider Dr. Jozef Grant Emergency Provider Dr. Yonatan Morrissey Admit Provider Dr. Yonatan Morrissey Attending Provider Dr. Yonatan Morrissey Other Provider Dr. Lata Sagastume Attending Provider [phone] Lata Sagastume Other Provider Vu Pulido MD Primary Care Provider Muagen [employer]ER [employer].Olinda WALTER Unavailable Madelaine ELECTRONICS ASSEMBLER AND TESTER.JOSE ANGEL, Darcie Christensen Unavailable [phone] Dr. Vu Pulido MD Primary Care Provider Dr. Vu Pulido MD Referring Provider Arpit NEVAREZ-CRiley Attending Provider Vu Pulido Unavailable Ashok, Vu Primary Care Unavailable Riley Munson NP Attending Unavailable ASHOK, VU Grande Referring Unavailable ASHOK, VU Grande Primary Care Unavailable VU PULIDO Primary Care Unavailable SILVA REYES Attending Unavailable VU PULIDO Primary Care Unavailable VU PULIDO Referring Unavailable ASHOK, VU Grande Primary Care Unavailable DARCIE MCCANN Attending Unavailable ASHOK, VU Grande Primary Care Unavailable VU PULIDO Attending Unavailable ASHOK, VU Grande Primary Care Unavailable VU PULIDO Referring Unavailable VU PULIDO Primary Care Unavailable VU PULIDO Attending Unavailable Medications Current Medications Medication Drug Class(es) Dates Sig (Normalized) Sig (Original) [id number] 200 actuat albuterol 0.09 mg/actuat metered dose inhaler (20 sources) beta2-Adrenergic Agonist Start: 09-24-2022 End: 08-05-2023 take 2 puff(s) by inhalation every six hours as needed albuterol HFA (PROVENTIL HFA, VENTOLIN HFA) 90 mcg/actuation inhaler Indications: Chronic obstructive pulmonary disease, unspecified COPD type (HCC) Inhale 2 Puffs as instructed every 6 hours as needed. 1 Each 3 08/05/2023 Active Start: 09-23-2022 Albuterol Sulf ate (Proventil Hfa) 90 mcg/actuation HFA aerosol inhaler Active 2 NMA INHALATION EVERY 6 HOURS as needed for shortness of breath or wheezing 6.7 September 23, 2022 12:00am Start: 09-23-2022 take 1 puff(s) by in halation every six hours Albuterol Sulfate (Proventil Hfa) 90 mcg/actuation HFA aerosol inhaler Active 2 PUFF INHALATION EVERY 6 HOURS 6.7 September 23, 2022 12:00am Comment on above: Inhale 2 Puffs as in structed every 6 hours as needed. aspirin 81 mg delayed release oral tablet (20 sources) Platelet Aggregation Inhibitor, Nonsteroidal Anti-inflammatory Drug Start: 05-18-2022 take 1 tablet by mouth once daily Aspirin (Adult Aspirin Regimen) 81 mg tablet,delayed release (DR/EC) Active 81 mg PO DAILY May 18, 2022 12:00am Start: 11-27-2013 End: 03-01-2022 take 1 tablet by mouth at bedtime Aspirin 81 MG tablet,chewable Discontinued 81 mg PO AT BEDTIME November 27, 2013 1:00am March 01, 2022 4:14pm Comment on above: Take 81 mg by mouth once daily. cephalexin 500 mg oral capsule (2 sources) Cephalosporin Antibacterial Start: End: take 1 capsule by mouth three times daily cephALEXin (KEFLEX) 500 mg capsule Indications: Rash and other nonspecific skin eruption Take 1 capsule by mouth three times daily for 5 days. 15 capsule 0 04/26/2022 05/01/2022 Active Comment on above: Take 1 capsule by [facility] three times daily for 5 days. cholecalciferol 0.01 mg chewable tablet (20 sources) Vitamin D Start: take 1 tablet by mouth once daily Cholecalciferol (Vitamin D3) 10 mcg (400 unit) tablet,chewable Active 10 ug PO daily May 04, 2025 12:00am Start: 08-17-2022 End: 02-17-2024 take 1 tablet by mouth once daily Cholecalciferol (Vitamin D3) 25 mcg (1,000 unit) tablet Discontinued 2000 U PO DAILY August 17, 2022 2:53pm February 17, 2024 1:03pm Start: 12-15-2020 End: 08-17-2022 take 1 tablet by mouth once daily Cholecalciferol (Vitamin D3) 1,000 UNIT tablet Discontinued 1000 U PO DAILY December 15, 2020 1:00am August 17, 2022 2:55pm take 3 capsules by [facility] once daily cholecalciferol (VITAMIN D3) 1,000 unit tab tablet Take 3 capsules by mouth once daily. Active take 2 capsules by m outh once daily cholecalciferol (VITAMIN D3) 1,000 unit tab tablet Take 2 capsules by mouth once daily. 0 Active Cholecalciferol, Vitamin D3, 50 mcg (2,000 unit) cap Take by mouth. 0 Active Comment on above: Take by mouth. Take 2 capsules by m outh once daily. Take 3 capsules by m outh once daily. doxycycline hyclate 100 mg oral tablet (7 sources) Tetracycline-class Drug Start: 01-01-2025 End: 01-11-2025 take 1 tablet by mouth twice daily doxycycline (VIBRA-TABS) 100 mg tablet Indications: Simple chronic bronchitis (HCC) Take 1 tablet by mouth two times a day for 10 days. 20 tablet 01/01/2025 01/11/2025 Active Start: 08-30-2023 End: 09-01-2023 take 1 capsule by mouth every twelve hours Doxycycline Monohydrate 100 mg capsule Discontinued 100 mg PO Q12H August 30, 2023 12:00am September 01, 2023 10:55am Start: 08-24-2023 End: 09-01-2023 take 1 capsule by mouth twice daily Doxycycline Hyclate 100 mg capsule Discontinued 100 mg PO TWICE A DAY 14 August 24, 2023 12:00am September 01, 2023 10:55am Start: 11-05-2022 End: 02-20-2023 take 1 capsule by mouth twice daily Doxycycline Monohydrate 100 mg capsule Discontinued 100 mg PO TWICE A DAY November 05, 2022 1:00am February 20, 2023 2:15pm folic acid 1 mg oral tablet (20 sources) Start: 10-09-2023 End: 07-12-2025 take 1 tablet by mouth once daily folic acid 1 mg tablet Indications: Folate deficiency Take 1 tablet by mouth once daily. 90 tablet 3 07/12/2025 Active Comment on above: Take 1 tablet by neri th once daily. furosemide 40 mg oral tablet (20 sources) Loop Diuretic Start: 02-17-2024 take 1 tablet by mouth once daily Furosemide (Lasix) 40 mg tablet Active 40 mg PO DAILY 90 February 17, 2024 1:22pm Start: 09-03-2023 End: 01-01-2025 take 1 tablet by mouth twice daily Furosemide (Lasix) 40 mg tablet Discontinued 40 mg PO TWICE A DAY 180 September 30, 2023 3:19pm February 17, 2024 1:23pm Start: 09-01-2023 End: 09-30-2023 take 1 tablet by mouth once daily Furosemide (Lasix) 40 mg tablet Discontinued 40 mg PO DAILY 180 September 30, 2023 3:18pm September 30, 2023 3:19pm Start: 12-17-2020 End: 05-17-2022 take 1 tablet by mouth once daily Furosemide 40 mg tablet Discontinued 40 mg PO DAILY 60 January 16, 2021 11:21am January 22, 2022 10:09am Comment on above: Take 1 tablet by neri th once daily. Take 1 tablet by neri th two times a day. 40 mg once daily. 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 180 tablet 3 04/26/2025 Active Comment on above: Take 1 tablet by neri twice daily. Take 1 tablet by neri th two times a day. levothyroxine sodium 0.025 mg oral tablet (20 sources) l-Thyroxine Start: End: take 1 tablet by mouth once daily for thyroid dysfunction levothyroxine (SYNTHROID) 25 mcg tablet Indications: Hypothyroidism, acquired Take 1 tablet by mouth once daily. Take on empty stomach. For thyroid. 90 tablet 3 01/01/2025 Active Comment on above: Take 1 tablet by neri th once daily. Take on empty stomach. For thyroid. memantine hydrochloride 5 mg oral tablet (7 sources) M-pmrzrr-N-aspart ate Receptor Antagonist Start: End: take 1 tablet by mouth once daily memantine (NAMENDA) 5 mg tablet Take 1 tablet by mouth once daily. 30 tablet 2 04/26/2022 07/25/2022 Active Comment on above: Take 1 tablet by neri th once daily. Nifuqttl-Cep-Yl-Lycop en-Lutein (3 sources) Start: Dmvsgocx-Lha-Yy-Lycope n-Lutein Active 1 EACH PO DAILY December 15, 2020 11:21am Start: 12-15-2020 End: 08-17-2022 Cpcgpbpm-Hvp-Wi-Lycopen-Lute in Discontinued 1 EACH PO DAILY December 15, 2020 1:00am August 17, 2022 2:55pm Start: 12-15-2020 End: 08-17-2022 Rvpitgik-Age-Kd-Lycopen-Lute in Discontinued 1 EACH PO DAILY December 15, 2020 12:00am August 17, 2022 1:55pm Kceecgjp-Kxs-Fzwqu-Vit K-Lycop (One-A-Day Men's Multivitamin) 400-20-300 mcg tablet (1 source) Start: 05-04-2025 Ytoudynq-Hoe-Uzaix-Vit K-Lycop (One-A-Day Men's Multivitamin) 400-20-300 mcg tablet Active {tbl} PO May 04, 2025 12:00am MULTIVITAMIN ORAL (6 sources) MULTIVITAMIN ORA L Take by mouth. Active potassium chloride 20 meq extended release oral tablet (20 sources) Start: 02-17-2024 End: 05-04-2025 take 1 tablet by mouth once daily Potassium Chloride 20 mEq tablet extended release Discontinued 20 meq PO DAILY May 04, 2025 2:03pm May 04, 2025 2:49pm Has been out for a few days Start: 09-03-2023 End: 07-12-2025 take 1 tablet by mouth twice daily potassium chloride 20 mEq TbER Indications: Congestive heart failure, unspecified HF chronicity, unspecified heart failure type (HCC) Take 1 tablet by mouth two times a day. 180 tablet 3 07/12/2025 Active Start: 09-01-2023 End: 09-30-2023 take 1 tablet by mouth once daily Potassium Chloride 20 mEq tablet extended release Discontinued 20 meq PO DAILY September 01, 2023 12:00am September 30, 2023 3:19pm Start: 12-17-2020 End: 05-17-2022 take 1 tablet by mouth twice daily Potassium Chloride 20 mEq tablet,ER particles/crystals Discontinued 20 meq PO TWICE A DAY January 16, 2021 11:20am January 22, 2022 10:09am Comment on above: Take 1 tablet by neri twice daily with meals. Take 1 tablet by [facility] two times a day. 20 mEq once daily. triamcinolone acetonide 1 mg/ml topical cream (2 sources) Corticosteroid Start: 04-26-20 End: 05-03-20 triamcinolone acetonide (KENALOG) 0.1 % cream Indications: Rash and other nonspecific skin eruption Apply 1 application to affected area twice daily for 7 days. Apply to affected area. Location: leg rash 30 g 0 04/26/2022 05/03/2022 Active Comment on above: Apply 1 application to affected area twice daily for 7 days. Apply to affected area. Location: leg rash vitamin e 180 mg oral capsule (20 sources) Start: 08-17-20 take 1 capsule by mouth once daily Vitamin E (Dl, Acetate) 180 mg (400 unit) capsule Active 180 mg PO DAILY August 17, 2022 12:00am take 1 capsule by [facility] once daily Vitamin E, dl, acetate, (VITAMIN E) 400 unit capsule Take 400 Units by mouth once daily. Active End: 07-15-2023 Vitamin E, dl, acetate, 1,00 0 unit capsule Take 400 Units by mouth once daily. 0 07/15/2023 Discontinued take 1 capsule by [facility] once daily Vitamin E, dl, acetate, 1,000 unit capsule Take 1,000 Units by mouth once daily. 0 Active Comment on above: Take 1,000 Units by mouth once daily. Take 400 Units by [facility] once daily. Completed/Discontinued Medications Medication Drug Class(es) Dates Sig (Normalized) Sig (Original) amiodarone hydrochloride 200 mg oral tablet (20 sources) Antiarrhythmic Start: 12-17-2020 End: 08-17-2022 take 1 tablet by mouth once daily Amiodarone 200 mg tablet Discontinued 200 mg PO DAILY February 12, 2022 1:00pm August 17, 2022 2:55pm Start: 12-17-2020 End: 02-13-2021 take 1 tablet by mouth twice daily Amiodarone 200 MG tablet Discontinued 200 mg PO TWICE A DAY December 17, 2020 1:00am February 13, 2021 4:56pm Comment on above: 1 tablet twice daily . 1 tablet once daily. amLODIPine 5 mg oral tablet (4 sources) Dihydropyridine Calcium Channel Loli Start: 12-15-19 End: 12-17-19 take 1 tablet by mouth once daily Amlodipine 5 MG tablet Discontinued 5 mg PO DAILY December 15, 2020 1:00am December 17, 2020 11:28am apixaban 5 mg oral tablet (13 sources) Factor Xa Inhibitor Start: 12-17-19 End: 05-17-20 take 1 tablet by mouth twice daily Apixaban 5 mg tablet Discontinued 5 mg PO TWICE A DAY February 09, 2021 4:38pm February 27, 2022 12:59pm Comment on above: Take 1 tablet by neri th twice daily. azithromycin 250 mg oral tablet (2 sources) Macrolide Antimicrobial Start: 08-21-20 End: 09-01-20 Azithromycin 250 mg tablet Discontinued 250 mg PO daily August 21, 2023 12:00am September 01, 2023 10:55am 2 tablets today, then 1 tablet daily on days 2 through 5 benzonatate 200 mg oral capsule (2 sources) Non-narcotic Antitussive Start: 08-21-20 End: 09-30-20 take 1 capsule by mouth at bedtime as needed for cough Benzonatate 200 mg capsule Discontinued 200 mg PO AT BEDTIME as needed for cough August 21, 2023 12:00am September 30, 2023 2:41pm carbidopa 25 mg / levodopa 100 mg oral tablet (20 sources) Aromatic Amino Acid Decarboxylation Inhibitor, Aromatic Amino Acid Start: 08-22-20 End: 02-17-20 Carbidopa-Levodopa 50-200 mg tablet extended release Discontinued 1 {tbl} PO AT BEDTIME August 22, 2023 12:00am February 17, 2024 1:02pm Start: 08-22-2023 take 1 tablet by neri th at bedtime Carbidopa-Levodopa Active 1 TABLET PO AT BEDTIME August 22, 2023 12:00am Start: 07-15-2023 End: 01-27-2024 carbidopa-levodopa (SINEMET) 25-100 mg per tablet Indications: Parkinson's disease (HCC) Take 1 tablet at 8AM, 1 tablet at Noon, and 1 tablet at 4PM. 90 tablet 2 07/15/2023 10/08/2023 Discontinued Start: 07-15-2023 End: 01-27-2024 carbidopa-levodopa CR (MALCOLM ET CR) 50-200 mg per tablet Indications: Parkinson's disease (HCC) TAKE 1 TABLET AT 9PM (BEDTIME) 90 tablet 1 09/02/2023 01/27/2024 Discontinued Start: 08-17-2022 take 0.5 tablet by m out three times daily Carbidopa-Levodopa Active 0.5 TABLET PO THREE TIMES A DAY August 17, 2022 12:00am Start: 08-09-2022 End: 02-17-2024 Carbidopa-Levodopa 25-100 mg tablet Discontinued 1 {tbl} PO THREE TIMES A DAY October 01, 2023 4:40pm February 17, 2024 1:02pm Comment on above: Take 0.5 tablets by mouth three times daily. Take three times daily with meals. Take 1 tablet by neri three times daily. Take three times daily with meals. Take 1 tablet at 8AM , 1 tablet at Noon, and 1 tablet at 4PM. Take 1 tablet at 9PM (bedtime) Take 1.5 tablet at 8 AM, 1.5 tablet at Noon, and 1.5 tablet at 4PM. metoprolol tartrate 50 mg oral tablet (20 sources) beta-Adrenergic Loli Start: 09-01-2023 End: 07-12-2025 take 1 tablet by mouth twice daily Metoprolol Tartrate 50 mg tablet Discontinued 50 mg PO TWICE A DAY 180 January 20, 2024 11:31am May 04, 2025 2:02pm Start: 12-17-2020 End: 09-02-2023 take 1 tablet by mouth twice daily Metoprolol Tartrate 25 mg tablet Discontinued 25 mg PO TWICE A DAY 60 January 21, 2023 5:20pm September 01, 2023 10:55am Comment on above: Take 25 mg by mouth twice daily. Take 50 mg by mouth two times a day. Gtjpbair-Eky-Br-Lycope n-Lutein 1 EACH tablet (1 source) Start: 12-15-2020 End: 08-17-2022 Fqebtkjc-Lym-Ha-Lycopen-Drew tein 1 EACH tablet Discontinued 1 NMA PO DAILY December 15, 2020 1:00am August 17, 2022 2:55pm multivit-min/FA/lycope n/lutein (CENTRUM SILVER MEN ORAL) (20 sources) End: 01-27-2024 multivit-min/FA/lycopen/drew tein (CENTRUM SILVER MEN ORAL) Take by mouth once daily. 01/27/2024 Discontinued (Discontinued by Patient) End: 01-27-2024 multivit-min/FA/lycopen/lute in (CENTRUM SILVER MEN ORAL) Take by mouth once daily. 0 01/27/2024 Discontinued (Discontinued by Patient) multivit-min/FA/ lycopen/lutein (CENTRUM SILVER MEN ORAL) Take by mouth once daily. 0 Active Comment on above: Take by mouth once d aily. rOPINIRole 1 mg oral tablet (20 sources) Nonergot Dopamine Agonist Start: 01-25-2022 End: 07-15-2023 take 1 tablet by mouth three times daily rOPINIRole (REQUIP) 1 mg tablet Indications: Parkinson's disease (HCC) TAKE 1 TABLET BY MOUTH THREE TIMES A DAY 270 tablet 2 07/27/2022 07/15/2023 Discontinued Start: 12-15-2020 End: 03-01-2022 take 1 tablet by mouth three times daily Ropinirole Hcl (Requip) 0.5 MG tablet Discontinued 0.5 mg PO THREE TIMES A DAY December 15, 2020 1:00am March 01, 2022 4:11pm Comment on above: Take 1 tablet by neri th three times daily. TAKE 1 TABLET BY NERI TH THREE TIMES A DAY vitamin b6 100 mg oral tablet (1 source) Start: 09-30-2023 End: 02-17-2024 take 1 tablet by mouth once daily Pyridoxine (Vitamin B6) 100 mg tablet Discontinued 100 mg PO DAILY September 30, 2023 1:00am February 17, 2024 1:03pm Problems Active Problems Problem Classification Problem Date Documented Date Episodic/Chronic Acute cerebrovascular disease (3 sources) Cerebral infarction; Translations: [Cerebral infarction, unspecified] 07-15-2023 Chronic Cardiac dysrhythmias (20 sources) Persistent atrial fibrillation; Translations: [Other persistent atrial fibrillation] Onset: 01-05-2021 01-05-2021 Chronic Comment on above: DCCV on 01/09/2021; Chronic obstructive pulmonary disease and bronchiectasis (20 sources) Chronic obstructive lung disease; Translations: [Chronic obstructive pulmonary disease, unspecified] Onset: 10-05-2022 Chronic Congestive heart failure; nonhypertensive (20 sources) Acute diastolic heart failure; Translations: [Acute diastolic (congestive) heart failure] Onset: 08-05-2023 08-05-2023 Chronic Delirium, dementia, and amnestic and other cognitive disorders (20 sources) Vascular dementia ; Translations: [Vascular dementia without behavioral disturbance] Onset: 09-30-2014 09-30-2014 Chronic Diabetes mellitus without complication (1 source) Hyperglycemia; Translations: [Hyperglycemia, unspecified] 01-28-2024 Episodic Diseases of white blood cells (2 sources) Leukocytosis; Translations: [Elevated white blood cell count, unspecified] Onset: 08-13-2024 07-30-2024 Chronic Epilepsy; convulsions (2 sources) Epilepsy, unspecified, not intractable, without status epilepticus; 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)] Onset: 01-31-2015 Chronic Essential hypertension (20 sources) Essential hypertension; Translations: [Essential (primary) hypertension] Onset: 05-02-2018 05-02-2018 Chronic Late effects of cerebrovascular disease (20 sources) Seizure disorder as sequela of stroke; Translations: [Other sequelae of cerebral infarction] Onset: 01-31-2015 01-31-2015 Chronic Malaise and fatigue (3 sources) Asthenia; Translations: [Weakness] 10-01-2022 Episodic Nutritional deficiencies (20 sources) Vitamin D deficiency; Translations: [Vitamin D deficiency, unspecified] Onset: 09-19-2017 09-19-2017 Chronic Other aftercare (1 source) Drug therapy finding; Translations: [Other mcc (current) drug therapy] Episodic Other circulatory disease (2 sources) Low blood pressure; Translations: [Hypotension, unspecified] 01-27-2024 Episodic Other connective tissue disease (1 source) Swelling of lower limb; Translations: [Other specified soft tissue disorders] Episodic Other connective tissue disease (3 sources) Paraparesis; Translations: [Other symptoms and signs involving the musculoskeletal system] Episodic Other connective tissue disease (1 source) Recurrent falls ; Translations: [Repeated falls] 07-29-2024 Episodic Other connective tissue disease (1 source) Other symptoms and signs involving the musculoskeletal system; Translations: [Other musculoskeletal symptoms referable to limbs] 08-09-2022 Episodic Other ear and sense organ disorders (1 source) Impacted cerumen of bilateral ears; Translations: [Impacted cerumen, bilateral] Episodic Other fractures (4 sources) Compression fracture of lumbar spine; Translations: [Wedge compression fracture of unspecified lumbar vertebra, subsequent encounter for fracture with routine healing] Episodic Other hematologic conditions (1 source) Other specified abnormalities of plasma proteins; Translations: [Other abnormal blood chemistry] Episodic Other hereditary and degenerative nervous system conditions (2 sources) Impaired cognition; Translations: [Mild cognitive impairment, so stated] Chronic Other liver diseases (20 sources) Steatosis of liver; Translations: [Fatty (change of) liver, not elsewhere classified] Onset: 08-05-2023 08-05-2023 Chronic Other liver diseases (1 source) Fatty (change of) liver, not elsewhere classified; Translations: [Fatty liver] Onset: 08-05-2023 Chronic Other liver diseases (1 source) Alkaline phosphatase raised; Translations: [Abnormal levels of other serum enzymes] Episodic Other lower respiratory disease (5 sources) Dyspnea; Translations: [Shortness of breath] Episodic Other lower respiratory disease (2 sources) Shortness of breath; Translations: [Shortness of breath] 08-24-2023 Episodic Other nervous system disorders (1 source) Neuropathy; Translations: [Polyneuropathy, unspecified] 10-08-2023 Chronic Other nervous system disorders (4 sources) Impairment of balance; Translations: [Other abnormalities of gait and mobility] Episodic Other nutritional; endocrine; and metabolic disorders (1 source) Weight loss; Translations: [Abnormal weight loss] 07-29-2024 Episodic Other screening for suspected conditions (not mental disorders or infectious disease) (2 sources) Plain X-ray result abnormal; Translations: [Abnormal findings on diagnostic imaging of other specified body structures] Chronic Other screening for suspected conditions (not mental disorders or infectious disease) (20 sources) Patient encounter status; Translations: [Encounter for screening for malignant neoplasm of prostate] Onset: 10-17-2017 06-27-2018 Episodic Other skin disorders (2 sources) Eruption; Translations: [Rash and other nonspecific skin eruption] Episodic Other skin disorders (3 sources) Disorder of skin; Translations: [Disorder of the skin and subcutaneous tissue, unspecified] 08-17-2022 Episodic Other skin disorders (1 source) Disorder of the skin and subcutaneous tissue, unspecified; 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] Episodic Other upper respiratory infections (1 source) Acute upper respiratory infection; Translations: [Acute upper respiratory infection, unspecified] 07-29-2024 Episodic Parkinson`s disease (20 sources) Parkinson's disease; Translations: [Parkinson's disease] Onset: 10-27-2020 10-27-2020 Chronic Parkinson`s disease (1 source) Parkinson`s disease; Translations: [Parkinson's disease, unspecified whether dyskinesia present, unspecified whether manifestations fluctuate (HCC)] Onset: 10-27-2020 Pneumonia (except that caused by tuberculosis or sexually transmitted disease) (2 sources) Pneumonia; Translations: [Pneumonia, unspecified organism] 09-01-2023 Episodic Poisoning by other medications and drugs (6 sources) Accidental thyroxin overdose; Translations: [Poisoning by thyroid hormones and substitutes, accidental (unintentional), initial encounter] Episodic Skin and subcutaneous tissue infections (1 source) Cellulitis of skin; Translations: [Cellulitis, unspecified] Episodic Superficial injury; contusion (1 source) Contusion of left ankle; Translations: [Contusion of left ankle, initial encounter] Episodic Thyroid disorders (20 sources) Acquired hypothyroidism; Translations: [Hypothyroidism, unspecified] Onset: 12-01-2021 12-01-2021 Chronic Unclassified (1 source) Other persistent atrial fibrillation; Translations: [Persistent atrial fibrillation (HCC)] Onset: 01-05-2021 Past or Other Problems Problem Classification Problem Date Documented Da te Episodic/Chronic Acute bronchitis (16 sources) Acute bronchitis; Translations: [Acute bronchitis, unspecified] Onset: 2 Resolved: 3 11-05-2022 Episodic Anal and rectal conditions (16 sources) Rectal mass; Translations: [Other specified diseases of anus and rectum] Onset: 3 Resolved: 4 09-30-2014 Episodic Cancer of prostate (20 sources) Malignant tumor of prostate; Translations: [Malignant neoplasm of prostate] Onset: 4 Resolved: 2 09-30-2014 Chronic Cancer of prostate (20 sources) History of malignant neoplasm of prostate; Translations: [Personal history of malignant neoplasm of prostate] Onset: 7 06-27-2018 Episodic Fracture of upper limb (20 sources) Closed fracture of shaft of humerus; Translations: [Unspecified fracture of shaft of humerus, unspecified arm, initial encounter for closed fracture] Onset: 8 Resolved: 3 06-27-2018 Episodic Immunizations and screening for infectious disease (1 source) Encounter for immunization; Translations: [Encounter for immunization] Onset: 5 Episodic Nutritional deficiencies (6 sources) Folic acid deficiency; Translations: [Deficiency of other specified B group vitamins] Onset: 5 10-09-2023 Episodic Other aftercare (20 sources) Long-term current use of anticoagulant; 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] Onset: 1 Resolved: 3 01-05-2021 Episodic Other circulatory disease (20 sources) History of cerebrovascular accident; Translations: [Personal history of transient ischemic attack (TIA), and cerebral infarction without residual deficits] Onset: 4 09-30-2014 Episodic Other circulatory disease (20 sources) Syncope due to orthostatic hypotension; Translations: [Orthostatic hypotension] Onset: 3 08-05-2023 Episodic Other circulatory disease (1 source) Personal history of transient ischemic attack (TIA), and cerebral infarction without residual deficits; Translations: [History of CVA (cerebrovascular accident)] Onset: 4 Episodic Other circulatory disease (1 source) Hypotension, unspecified; Translations: [Hypotension, unspecified hypotension type] Onset: 4 Episodic Other connective tissue disease (1 source) Repeated falls; Translations: [Frequent falls] Onset: 4 Episodic Other fractures (20 sources) Compression fracture of vertebral column; Translations: [Collapsed vertebra, not elsewhere classified, site unspecified, initial encounter for fracture] Onset: 7 11-04-2017 Episodic Other fractures (1 source) Wedge compression fracture of unspecified lumbar vertebra, subsequent encounter for fracture with routine healing; Translations: [Compression fracture of lumbar vertebra with routine healing, unspecified lumbar vertebral level, subsequent encounter] Onset: 7 Episodic Other gastrointestinal disorders (20 sources) H/O: duodenal ulcer; Translations: [Personal history of other diseases of the digestive system] Onset: 3 02-04-2013 Episodic Other gastrointestinal disorders (16 sources) Diarrhea after gastrointestinal tract surgery; Translations: [Diarrhea, unspecified] Onset: 4 Resolved: 7 11-04-2017 Episodic Other hematologic conditions (20 sources) Raised cardiac enzyme or marker; Translations: [Other specified abnormalities of plasma proteins] Onset: 2 Episodic Other nutritional; endocrine; and metabolic disorders (20 sources) Weight gain; Translations: [Abnormal weight gain] Onset: 3 Resolved: 4 08-05-2023 Episodic Other nutritional; endocrine; and metabolic disorders (9 sources) Weight increased; Translations: [Abnormal weight gain] Onset: 3 Resolved: 4 07-29-2024 Episodic Other nutritional; endocrine; and metabolic disorders (1 source) Abnormal weight loss; Translations: [Weight loss] Onset: 4 Episodic Pathological fracture (20 sources) Pathological fracture due to osteoporosis; Translations: [Age-related osteoporosis with current pathological fracture, unspecified site, initial encounter for fracture] Onset: 7 11-04-2017 Episodic Pleurisy; pneumothorax; pulmonary collapse (19 sources) Pleural effusion; Translations: [Pleural effusion, not elsewhere classified] Onset: 3 Resolved: 3 08-31-2023 Episodic Residual codes; unclassified (20 sources) Amnesia; Translations: [Other amnesia] Onset: 4 Resolved: 2 09-30-2014 Episodic Residual codes; unclassified (16 sources) Tobacco user; Translations: [Tobacco use] Onset: 4 Resolved: 7 09-18-2017 Episodic Results Test Name Value Interpretation Reference Range Facility 25([facility]3 [facility] 25-hydroxyvitamin D3 [Mass/Vol] 31.3 ng/mL Normal 31.0-80.0 [facility] Comment on above: Order Comment: Speci men Type: BLOOD SPECIMENOrdering Facility: [facility] Address: [address], [place] [address] Result Comment: Clas sification of 25 OH Vitamin D status: Deficiency/Insufficiency: < or = 30 ng/ml. Sufficiency/Optimal Levels: 31-80 ng/mL Toxicity: > 100 ng/mL. Test performed by chemiluminescent immunoassay. Performed By: #### 1 989-3 ####[facility] [id number] [place] [address] [place] CBC W Auto Differential pane l (Bld)on 07-12-2025 Basophils (Bld) [#/Vol] 10*3/uL Normal <0.11 [facility] Comment on above: Order Comment: Speci men Type: BLOOD SPECIMENOrdering Facility: [facility] Address: [address] [place] [address] Performed By: #### 5 7021-8 ####[facility] [id number] [place] [address] [place] Basophils/100 WBC (Bld) 0.3 % Normal [facility] Comment on above: Order Comment: Speci men Type: BLOOD SPECIMENOrdering Facility: [facility] Address: [address] [place] [address] Performed By: #### 5 7021-8 ####[facility] [id number] [address] [place] Differential cell count method Nom (Bld) Auto Normal [facility] Comment on above: Order Comment: Speci men Type: BLOOD SPECIMENOrdering Facility: [facility] Address: [address] [place] [address] Performed By: #### 5 7021-8 ####[facility] [id number] [place] [address] [place] Eosinophils (Bld) [#/Vol] 0.10 10*3/uL Normal <0.46 [facility] Comment on above: Order Comment: Speci men Type: BLOOD SPECIMENOrdering Facility: [facility] Address: [address] [place], [place] [address] Performed By: #### 5 7021-8 ####[facility] [id number] [place] [address] [place] Eosinophils/100 WBC (Bld) 1.6 % Normal [facility] Comment on above: Order Comment: Speci men Type: BLOOD SPECIMENOrdering Facility: [facility] Address: [address] [place] [address] Performed By: #### 5 7021-8 ####[facility] [id number] [address], [place] [address] [place] Erythrocyte distribution width (RBC) [Ratio] 13.3 % Normal 11.5-15.0 [facility] Comment on above: Order Comment: Speci men Type: BLOOD SPECIMENOrdering Facility: [facility] Address: [address] [place] [address] Performed By: #### 5 7021-8 ####[facility] [id number] [place] [address] [place] Hematocrit (Bld) [Volume fraction] 45.8 % Normal 39.0-51.0 [facility] Comment on above: Order Comment: Speci men Type: BLOOD SPECIMENOrdering Facility: [facility] Address: [address] [place] [address] Performed By: #### 5 7021-8 ####[facility] [id number] [place] [id number] [place] Hemoglobin (Bld) [Mass/Vol] 15.2 g/dL Normal 13.0-17.0 [facility] Comment on above: Order Comment: Speci men Type: BLOOD SPECIMENOrdering Facility: [facility] Address: [address] [place] [address] Performed By: #### 5 7021-8 ####[facility] [id number] [address] [id number] [address] [place] Immature granulocytes (Bld) [#/Vol] 10*3/uL Normal <0.10 [facility] Comment on above: Order Comment: Speci men Type: BLOOD SPECIMENOrdering Facility: [facility] Address: [address] [place] [address] Performed By: #### 5 7021-8 ####[facility] [id number] [place] [address] [place] Immature granulocytes/100 WBC (Bld) 0.2 % Normal [facility] Comment on above: Order Comment: Speci men Type: BLOOD SPECIMENOrdering Facility: [facility] Address: [address] [place] [address] Performed By: #### 5 7021-8 ####[facility] [id number] [place] [address] [place] Lymphocytes (Bld) [#/Vol] 1.65 10*3/uL Normal 1.00-4.00 [facility] Comment on above: Order Comment: Speci men Type: BLOOD SPECIMENOrdering Facility: [facility] Address: [address] [place] [address] Performed By: #### 5 7021-8 ####[facility] [id number] [place] [address] [place] Lymphocytes/100 WBC (Bld) 25.9 % Normal [facility] Comment on above: Order Comment: Speci men Type: BLOOD SPECIMENOrdering Facility: [facility] Address: [address] [place] [address] Performed By: #### 5 7021-8 ####[facility] [id number] [place] [address] [place] MCH (RBC) [Entitic mass] 32.3 pg Normal 26.0-34.0 [facility] Comment on above: Order Comment: Speci men Type: BLOOD SPECIMENOrdering Facility: [facility] Address: [address] [place] [address] Performed By: #### 5 7021-8 ####[facility] [id number] [address], [place] [address] [place] MCHC (RBC) [Mass/Vol] 33.2 g/dL Normal 30.5-36.0 [facility] Comment on above: Order Comment: Speci men Type: BLOOD SPECIMENOrdering Facility: [facility] Address: [address] [place] [address] Performed By: #### 5 7021-8 ####[facility] [id number] [address], [place] [address] [place] MCV (RBC) [Entitic vol] 97.2 fL Normal 80.0-100.0 [facility] Comment on above: Order Comment: Speci men Type: BLOOD SPECIMENOrdering Facility: [facility] Address: [address] [place] [address] Performed By: #### 5 7021-8 ####[facility] [id number] [address], [place] [address] [place] Monocytes (Bld) [#/Vol] 1.08 10*3/uL High <0.87 [facility] Comment on above: Order Comment: Speci men Type: BLOOD SPECIMENOrdering Facility: [facility] Address: [address] [place] [address] Performed By: #### 5 7021-8 ####[facility] [id number] [address], [id number] [place] Monocytes/100 WBC (Bld) 17.0 % Normal [facility] Comment on above: Order Comment: Speci men Type: BLOOD SPECIMENOrdering Facility: [facility] Address: [address] [place] [address] Performed By: #### 5 7021-8 ####[facility] [id number] [address] [place] [address] [place] Neutrophils (Bld) [#/Vol] 3.50 10*3/uL Normal 1.45-7.50 [facility] Comment on above: Order Comment: Speci men Type: BLOOD SPECIMENOrdering Facility: [facility] Address: [address] [place] [address] Performed By: #### 5 7021-8 ####[facility] [id number] [place] [address] [place] Neutrophils/100 WBC (Bld) 55.0 % Normal [facility] Comment on above: Order Comment: Speci men Type: BLOOD SPECIMENOrdering Facility: [facility] Address: [address] [place] [address] Performed By: #### 5 7021-8 ####[facility] [id number] [place] [address] [place] Nucleated RBC (Bld) [#/Vol] 10*3/uL Normal <0.01 [facility] Comment on above: Order Comment: Speci men Type: BLOOD SPECIMENOrdering Facility: [facility] Address: [address] [place] [address] Performed By: #### 5 7021-8 ####[facility] [id number] [place] [address] [place] Nucleated RBC/100 WBC (Bld) [Ratio] 0.0 /100 WBC Normal [facility] Comment on above: Order Comment: Speci men Type: BLOOD SPECIMENOrdering Facility: [facility] Address: [address] [place] [address] Performed By: #### 5 7021-8 ####[facility] [id number] [place] [address] [place] Platelet mean volume (Bld) [Entitic vol] 11.6 fL Normal 9.0-12.7 [facility] Comment on above: Order Comment: Speci men Type: BLOOD SPECIMENOrdering Facility: [facility] Address: [address] [place] [address] Performed By: #### 5 7021-8 ####[facility] [id number] [place] [address] [place] Platelets (Bld) [#/Vol] 251 10*3/uL Normal 150-400 [facility] Comment on above: Order Comment: Speci men Type: BLOOD SPECIMENOrdering Facility: [facility] Address: [address] [place] [address] Performed By: #### 5 7021-8 ####[facility] [id number] [place] [address] [place] RBC (Bld) [#/Vol] 4.71 10*6/uL Normal 4.20-6.00 [facility] Comment on above: Order Comment: Speci men Type: BLOOD SPECIMENOrdering Facility: [facility] Address: [address] [place] [address] Performed By: #### 5 7021-8 ####[facility] [id number] [place] [address] [place] WBC (Bld) [#/Vol] 6.36 10*3/uL Normal 3.70-11.00 [facility] Comment on above: Order Comment: Speci men Type: BLOOD SPECIMENOrdering Facility: [facility] Address: [address] [place] [address] Performed By: #### 5 7021-8 ####[facility] [id number] [place] [id number] [facility] CNOVon 07-12-2025 CNOV Office Visit (FAMPWS ) -- RAMSES GILLILAND ([id number]) 1940 M Date Time Provider Department 07/12/25 1:40 PM VU PULIDO FAMPWS During your visit today, we recorded the following information about you: Pulse Blood pressure Weight 87/minute 102/62 65.8 kg Vu Pulido MD 07/12/2025 2:02 PM Addendum - Refills for potassium and folic acid have been sent to your pharmacy; all other current medications (including aspirin and Keppra) have been refilled. - Before you leave today, get blood drawn for: - Complete blood count (CBC) and comprehensive metabolic panel (CMP) - Lipid panel - Thyroid studies (TSH and T4) - Keppra level - Prostate-specific antigen (PSA) - Vitamin D and folic acid levels - Continue using your walker; if you experience any new falls, increased stiffness or tremor, contact the office. - Weigh yourself periodically at home; if you notice unexplained weight loss, please let us know. - Return for follow-up in about six months to review your lab results and ongoing care. Vu Pulido MD 07/12/2025 2:37 PM Signed Ramses Gilliland is an 84-year-old male with a history of atrial fibrillation, Parkinson's disease, and seizures, presenting for a follow-up visit. HPI Atrial Fibrillation: - Recent cardiology visit with Dr. Munson; no atrial fibrillation noted. - No chest pain, dyspnea, or dizziness. - Blood pressure reportedly well-controlled. - Continues to take aspirin daily. - Not on anticoagulants due to fall risk. Parkinson's Disease: - No worsening tremor or seizures. - No stiffness or rigidity. - Continues to use a walker; recently had a walker stolen in [place]. - No recent falls, though Ramses had difficulty getting into a chair in [place]. - No edema in lower extremities. - Appetite is good; no significant weight loss. - No issues with bowel or urinary function. - No cough or wheezing. - No changes in mood or memory. - No recent neurology visits; previously on Sinemet. - Denies wanting to see Dr. Garcia again. Seizures: - Continues to take Keppra. - No recent seizures reported. Lifestyle: - Recently returned from a month-long stay in [place]. - Sold [place] property; will not be returning. - Has a medical living will; Ramses's daughter is the designated decision-maker. MEDICATIONS: Current Outpatient Medications Medication Sig levETIRAcetam (KEPPRA) 750 mg tablet Take 1 tablet by mouth two times a day. MULTIVITAMIN ORAL Take by mouth. levothyroxine (SYNTHROID) 25 mcg tablet Take 1 tablet by mouth once daily. Take on empty stomach. For thyroid. Vitamin E, dl, acetate, (VITAMIN E) 400 unit capsule Take 400 Units by mouth once daily. aspirin, enteric coated (ASPIRIN, ENTERIC COATED) 81 mg EC tablet Take 81 mg by mouth once daily. cholecalciferol (VITAMIN D3) 1,000 unit tab tablet Take 3 capsules by mouth once daily. potassium chloride 20 mEq TbER Take 1 tablet by mouth two times a day. folic acid 1 mg tablet Take 1 tablet by mouth once daily. albuterol HFA (PROVENTIL HFA, VENTOLIN HFA) 90 mcg/actuation inhaler Inhale 2 Puffs as instructed every 6 hours as needed. No current facility-administered medications for this visit. 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) 01/31/2015 Seizures ([facility]) 2006 Tobacco abuse 09/30/2014 Vascular dementia (HCC) 09/30/2014 Vertebral compression fracture ([facility]) 11/04/2017 Vitamin D deficiency 09/19/2017 PAST SURGICAL HISTORY Procedure Laterality Date APPENDECTOMY remote CATARACT SURGERY, COMPLEX 2011, 2012 IOLs CHOLECYSTECTOMY 2005 laparoscopic CYSTOSCOPY 2008 PAST SURGICAL HISTORY OF 2007 prostate cancer external radiation rx PAST SURGICAL HISTORY OF surgery for PUD complications Billroth II FAMILY HISTORY Problem Relation Age of Onset COPD Mother COPD Father Breast Cancer Sister Cancer Brother SOCIAL HISTORY[1] Reviewed current medications, allergies, past medical history, surgical history, family history and social history today. REVIEW OF SYSTEMS Cardiovascular: (-) chest pain, (-) peripheral edema Respiratory: (-) dyspnea, (-) cough, (-) wheeze Gastrointestinal: (-) melena Genitourinary: (+) nocturia Musculoskeletal: (+) recent fall, (-) back pain Neurological: (+) tremor, (-) dizziness, (-) syncope, (-) seizures (more content not included)... Normal [facility] Comprehensive metabolic 2000 panelon 07-12-2025 Albumin [Mass/Vol] 4.1 g/dL Normal 3.9-4.9 [facility] Comment on above: Order Comment: Speci men Type: BLOOD SPECIMENOrdering Facility: [facility] Address: [address] [place] [address] Performed By: #### 2 432-8, 2284-06 ####[facility] [id number] [place] [address] [place] ALP [Catalytic activity/Vol] 109 U/L Normal 38-113 [facility] Comment on above: Order Comment: Speci men Type: BLOOD SPECIMENOrdering Facility: [facility] Address: [address] [place] [address] Performed By: #### 2 4323-8, 2284-06 ####[facility] [id number] [address] [place] ALT [Catalytic activity/Vol] 9 U/L Low 10-54 [facility] Comment on above: Order Comment: Speci men Type: BLOOD SPECIMENOrdering Facility: [facility] Address: [address] [place] [address] Performed By: #### 2 4323-8, 8 ####[facility] [id number] [place] [address] [place] Anion gap [Moles/Vol] 11 mmol/L Normal 8-15 [facility] Comment on above: Order Comment: Speci men Type: BLOOD SPECIMENOrdering Facility: [facility] Address: [address] [place] [address] Performed By: #### 2 432-8, 8 ####[facility] [id number] [place] [id number] [place] AST [Catalytic activity/Vol] 12 U/L Low 14-40 [facility] Comment on above: Order Comment: Speci men Type: BLOOD SPECIMENOrdering Facility: [facility] Address: [address] [place] [address] Performed By: #### 2 432-8, 2284-06 ####[facility] [id number] [place] [id number] [place] Bilirubin [Mass/Vol] 0.5 mg/dL Normal 0.2-1.3 [facility] Comment on above: Order Comment: Speci men Type: BLOOD SPECIMENOrdering Facility: [facility] Address: [address] [place] [address] Performed By: #### 2 8, 2284-06 ####[facility] [id number] [place] [address] [place] Calcium [Mass/Vol] 9.3 mg/dL Normal 8.5-10.2 [facility] Comment on above: Order Comment: Speci men Type: BLOOD SPECIMENOrdering Facility: [facility] Address: [address] [place] [address] Performed By: #### 2 4322-8, 2284-06 ####[facility] [id number] [place] [id number] [place] Chloride [Moles/Vol] 105 mmol/L Normal 98-107 [facility] Comment on above: Order Comment: Speci men Type: BLOOD SPECIMENOrdering Facility: [facility] Address: [address] [place] [address] Performed By: #### 2 432-8, 8 ####[facility] [id number] [place] [id number] [place] CO2 [Moles/Vol] 25 mmol/L Normal 22-30 [facility] Comment on above: Order Comment: Speci men Type: BLOOD SPECIMENOrdering Facility: [facility] Address: [address] [place] [address] Performed By: #### 2 4323-8, 8 ####[facility] [id number] [place] [id number] [place] Creatinine [Mass/Vol] 0.72 mg/dL Low 0.73-1.22 [facility] Comment on above: Order Comment: Speci men Type: BLOOD SPECIMENOrdering Facility: [facility] Address: [address] [place] [address] Performed By: #### 2 4323-8, 2284-06 ####[facility] [id number] [place] [address] [place] eGFRcr SerPlBld CKD-EPI 2020 91 mL/min/1.73m??? Normal >=60 [facility] Comment on above: Order Comment: Speci men Type: BLOOD SPECIMENOrdering Facility: [facility] Address: [address] [place] [address] Result Comment: Nia mated Glomerular Filtration Rate (eGFR) is calculated using the 2020 CKD-EPI creatinine equation. This equation utilizes serum creatinine, sex, and age as parameters. The creatinine assay has traceable calibration to isotope dilution-mass spectrometry. Refer to KDIGO guidelines for clinical interpretation. In patients with unstable renal function, e.g. those with acute kidney injury, the eGFR may not accurately reflect actual GFR. Performed By: #### 2 4323-8, 8 ####[facility] [id number] [place] [id number] [place] Glucose [Mass/Vol] 97 mg/dL Normal 74-99 [facility] Comment on above: Order Comment: Speci men Type: BLOOD SPECIMENOrdering Facility: [facility] Address: [address] [place], [place] [address] Result Comment: The [place] Diabetes [employer] (ADA) provides guidance for cutoff values for fasting glucose and random glucose. The ADA defines fasting as no caloric intake for at least 8 hours. Fasting plasma glucose results between 100 to 125 [...] Standards of Medical Care in Diabetes 2016, [place] [employer]. Diabetes Care. 2016.39(Suppl 1). Performed By: #### 2 432-8, 2284-06 ####[facility] [id number] [place] [address] [place] Potassium [Moles/Vol] 4.9 mmol/L Normal 3.7-5.1 [facility] Comment on above: Order Comment: Speci men Type: BLOOD SPECIMENOrdering Facility: [facility] Address: [address] [place] [address] Performed By: #### 2 4322-8, 2284-06 ####[facility] [id number] [place] [address] [place] Protein [Mass/Vol] 6.7 g/dL Normal 6.3-8.0 [facility] Comment on above: Order Comment: Speci men Type: BLOOD SPECIMENOrdering Facility: [facility] Address: [address] [place] [address] Performed By: #### 2 432-8, 2284-06 ####[facility] [id number] [place] [address] [place] Sodium [Moles/Vol] 141 mmol/L Normal 136-144 [facility] Comment on above: Order Comment: Speci men Type: BLOOD SPECIMENOrdering Facility: [facility] Address: [address] [place] [address] Performed By: #### 2 4323-8, 8 ####[facility] [id number] [place] [address] [place] Urea nitrogen [Mass/Vol] 9 mg/dL Normal 9-24 [facility] Comment on above: Order Comment: Speci men Type: BLOOD SPECIMENOrdering Facility: [facility] Address: [address] [place] [address] Performed By: #### 2 4323-8, 8 ####[facility] [id number] [place] [address] [place] Folate SerPl-mCncon 07-12-20 25 Folate [Mass/Vol] ng/mL Normal >4.7 [facility] Comment on above: Order Comment: Speci men Type: BLOOD SPECIMENOrdering Facility: [facility] Address: [address] [place] [address] Result Comment: A re sult of > 20 ng/mL is not necessarily indicative of a pathologic or treatable condition: it reflects a limitation of the test methodology. Assay reference range: 4.8 to 24.2 ng/mL. Suitable for detection of folate deficiency. Reference: Folate III (Folate III) [package insert V 1.0 [place]an]. [facility], [place], [place]: September 2015. Performed By: #### 2 4323-8, 8 ####[facility] [id number] [place] [address] [place] Lipid 1996 panelon 5 Cholesterol [Mass/Vol] 150 mg/dL Normal <200 [facility] Comment on above: Order Comment: Speci men Type: BLOOD SPECIMENOrdering Facility: [facility] Address: [address] [place] [address] Result Comment: <200 mg/dL, Desirable 200-239 mg/dL, Borderline high >239 mg/dL, High Performed By: #### T 4FTI, 42536-7, 3016-3 ####[facility] [id number] [address] [place] Cholesterol in HDL [Mass/Vol] 38 mg/dL Low >39 [facility] Comment on above: Order Comment: Jeimyi men Type: BLOOD SPECIMENOrdering Facility: [facility] Address: [address] [place] [address] Result Comment: 40-5 9 mg/dL, Acceptable >59 mg/dL, High: Negative risk factor for coronary heart disease <40 mg/dL, Low: Positive risk factor for coronary heart disease Performed By: #### T 4FTI, 78462-4, 3015-3 ####[facility] [id number] [address] Cholesterol in LDL [Mass/Vol] 95 mg/dL Normal <100 [facility] Comment on above: Order Comment: Jeimymandy covarrubias Type: BLOOD SPECIMENOrdering Facility: [facility] Address: [address] [place] [address] Result Comment: <100 mg/dL, Optimal 100-129 mg/dL, Near optimal/above optimal 130-159 mg/dL, Borderline high 160-189 mg/dL, High >189 mg/dL, Very high Secondary prevention optimal LDL Cholesterol levels are recommended to be <70 mg/dL LDL cholesterol is calculated using the Fine-NIH equation. Performed By: #### T 4FTI, 58507-4, 3015-3 ####[facility] [id number] [address] [facility] Cholesterol in LDL/Cholesterol in HDL [Mass ratio] 2.50 {ratio} Normal <2.54 [facility] Comment on above: Order Comment: Connor men Type: BLOOD SPECIMENOrdering Facility: [facility] Address: [address] [place] [address] Result Comment: Refalon adamsonce: 1. National Cholesterol Education Program ATP III Guideline At-A-Glance Quick Desk Reference: National Heart, Lung, and Blood [place]. National Institutes of Health. 2001: NIH Publication No. 01-3305. 2. An International Atherosclerosis Society position paper: global recommendations for the management of dyslipidemia: executive summary, Atherosclerosis. 2014: 232(2):410-413. Performed By: #### Sally CHAMBERLAIN, 47133-4, 3015-3 ####[facility] [id number] [facility] [id number] [address] [place] Cholesterol in VLDL [Mass/Vol] 15 mg/dL Normal <30 [facility] Comment on above: Order Comment: Speci men Type: BLOOD SPECIMENOrdering Facility: [facility] Address: [address] [place] [address] Performed By: #### Sally CHAMBERLAIN, 68949-1, 3016-01 ####[facility] [id number] [address] [place] [address] [place] Cholesterol non HDL [Mass/Vol] 112 mg/dL Normal <130 [facility] Comment on above: Order Comment: Speci men Type: BLOOD SPECIMENOrdering Facility: [facility] Address: [address] [place] [address] Result Comment: <130 mg/dL, Optimal 130-159 mg/dL, Near optimal/above optimal 160-189 mg/dL, Borderline high 190-219 mg/dL, High >219 mg/dL, Very high Secondary prevention optimal non HDL Cholesterol levels are recommended to be <100 mg/dL Performed By: #### Sally 4FCONCETTA, 42377-5, 3015- ####[facility] [id number] [facility] [address] [place] [address] [place] Cholesterol.total/Ch olesterol in HDL [Mass ratio] 3.95 {ratio} Normal <5.10 [facility] Comment on above: Order Comment: Connor men Type: BLOOD SPECIMENOrdering Facility: [facility] Address: [address] [place] [id number] Performed By: #### T 4FCONCETTA, 08455-3, 3015-3 ####[facility] [id number] [facility] [place] [id number] [place] FASTING TIME 15 hrs Normal [facility] Comment on above: Order Comment: Speci men Type: BLOOD SPECIMENOrdering Facility: [facility] Address: [address] [place] [address] Performed By: #### T 4FCONCETTA, 87988-9, 6-3 ####[facility] [id number] [place] [address] [place] Triglyceride [Mass/Vol] 91 mg/dL Normal <150 [facility] Comment on above: Order Comment: Speci men Type: BLOOD SPECIMENOrdering Facility: [facility] Address: [address] [place] [address] Result Comment: <150 mg/dL, Normal 150-199 mg/dL, Borderline high 200-499 mg/dL, High >499 mg/dL, Very high Performed By: #### T 4FCONCETTA, 52388-7, 3 ####[facility] [id number] [place] [address] [place] PSA/PROSTATE SPECIFIC ANTIGE N SCREENINGon 07-12-2025 Prostate specific Ag [Mass/Vol] 0.64 ng/mL Normal <2.60 [facility] Comment on above: Order Comment: Speci men Type: BLOOD SPECIMENOrdering Facility: [facility] Address: [address] [place] [address] Result Comment: Tota l PSA test methodology used is the Electrochemiluminescence Immunoassay by [facility]. Total PSA values by differing methodologies cannot be interchanged. Performed By: #### P SAS1 ####[facility] [id number] [place] [id number] [place] T4/FTI/T4Uon 07-12-2025 FTI 6.9 ug/dL Normal 5.3-10.8 [facility] Comment on above: Order Comment: Speci men Type: BLOOD SPECIMENOrdering Facility: [facility] Address: [address] [place] [address] Performed By: #### T 4FTI, 38793-6, 6-3 ####[facility] [id number] [place] [id number] [place] T4 [Mass/Vol] 6.6 ug/dL Normal 5.5-10.2 [facility] Comment on above: Order Comment: Speci men Type: BLOOD SPECIMENOrdering Facility: [facility] Address: [address] [place] [address] Performed By: #### Sally CHAMBERLAIN, 86800-1, 3016-3 ####[facility] [id number] [place] [id number] [place] T4 uptake [Mass/Vol] 0.96 Normal 0.91-1.19 [facility] Comment on above: Order Comment: Speci men Type: BLOOD SPECIMENOrdering Facility: [facility] Address: [address] [place] [address] Performed By: #### Sally CHAMBERLAIN, 59176-5, 6-3 ####[facility] [id number] [place] [id number] [place] TSH SerPl-aCncon 07-12-2025 TSH Qn 3.500 m[IU]/L Normal 0.270-4.200 [facility] Comment on above: Order Comment: Speci men Type: BLOOD SPECIMENOrdering Facility: [facility] Address: [address] [place] [address] Performed By: #### Sally CHAMBERLAIN, 83738-0, 63 ####[facility] [id number] [place] [id number] [place] levETIRAcetam SerPl-mCncon 0 07-12-2025 levETIRAcetam [Mass/Vol] 23.7 ug/mL Normal 12.0-46.0 [facility] Comment on above: Order Comment: Speci men Type: BLOOD SPECIMENOrdering Facility: [facility] Address: [address] [place] [address] Result Comment: This test is not suitable for patients receiving treatment with the drug brivaracetam (Briviact). The drug causes an interference that may lead to falsely elevated levetiracetam results. Reference ranges and high/low indicator flags are provided as general guidelines only. The treating physician must determine appropriate target levels/dosing based on the specific clinical situation. This test was developed, and its performance characteristics determined by the [facility] Department of Pathology and Laboratory Medicine. It has not been cleared or approved by the FDA. The [facility] Department of Pathology and Laboratory Medicine is regulated under CLIA as qualified to perform high-complexity testing. This test is used for clinical purposes. It should not be regarded as investigational or for research. Performed By: #### 3 0471-7 ####[facility] [id number] [address] [address] [place] Cardiology Visit Reporton Cardiology Visit Report [facility] [place] [address] [address] [facility]. [address] [place] [address] OFFICE VISIT Date of Service: 05/04/25 MR#: [id number] Acct: [id number] Name: RAMSES GILLILAND Rep #: [id number] : 1940 Provider: GLENN rice Age/Sex: 84/M Location[place] [facility] Status: Signed HPI HPI History of Present Illness Details: Ramses Gilliland is an 84-year-old gentleman who presents today for a follow-up. He was in the hospital for an elevated troponin it was felt to be related to his overdose of thyroid medication that he had taken. These trended 198/193/183. It was felt to be demand mismatch. He does have a history of hypertension, congestive heart failure, and atrial fibrillation with RVR. He was evaluated [facility] August 2023 for shortness of breath that was thought to be multifactorial. During this visit, he was noted to have atrial fibrillation. His metoprolol was increased to 50 mg twice a day. He was noted not to be on anticoagulation due to history of falls and fall risk given history of Parkinson's disease. He denies chest, arm, jaw, or neck discomfort. He denies palpitations. He denies bilateral lower extremity edema. He denies claudication. He denies shortness of breath with activity, shortness of breath at rest, orthopnea, or PND. He denies chronic cough. He denies significant, sudden weight gain. He denies lightheadedness, dizziness, near-syncope, or syncope. He denies blood in urine, blood in stool, or epistaxis. He denies fever with chills. He denies myalgia. He denies fatigue. He acknowledges frequent falls and general muscle weakness. He also acknowledges balance issues. His exercise level has remained stable, but he is minimally active. 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 Accompanied by: Is patient in pain?: No Allergies No Known Allergies Allergy (Verified 05/04/25 14:01) Medications ???Medication ???Instructions ???Recorded ???Confirmed ???Type levetiracetam 750 mg tablet 750 mg PO BID seizures 12/15/20 History aspirin 81 mg tablet,delayed 81 mg PO DAILY heart health 05/04/25 History release (Adult Aspirin Regimen) levothyroxine 25 mcg tablet 25 mcg PO DAILY thyroid 08/17/22 0 05/04/25 History vitamin E (dl, acetate) 180 mg 180 mg PO DAILY vitamin 08/17/22 0 05/04/25 History (400 unit) capsule albuterol sulfate 90 mcg/actuation 2 puff inhalation Q6H PRN 05/04/25 Rx aerosol inhaler (Proventil HFA) shortness of breath or wheezing #6.7 grams folic acid 1 mg tablet 1 mg PO QDAY 02/17/24 05/04/25 His tory furosemide 40 mg tablet (Lasix) 40 mg PO DAILY #90 tabs 02/17/24 0 05/04/25 Rx cholecalciferol (vitamin D3) 10 10 mcg PO QDAY 05/04/25 05/04/25 H istory mcg (400 unit) chewable tablet unxtiulc-ckuamcgy-cdkkj acid 400 tab PO 05/04/25 05/04/25 History mcg-vit K 20 mcg-lycop 300 mcg tablet (One-A-Day Men's Multivitamin) potassium chloride 20 mEq 20 meq PO DAILY #90 tabs 05/04/25 05/04/25 Rx tablet,extended release Ejection fraction %: 60 Have you fallen in the past year?: Yes (Knees give out) Nurse's Note: Ran out of metoprolol a couple months ago. Has been out of potassium for a few days. [facility] Medical History Elevated troponin I level Paroxysmal atrial fibrillation with rapid ventricular response Acute bronchitis, unspecified History of CVA (cerebrovascular accident) Weight gain Paroxysmal atrial fibrillation jail current use of amiodarone Parkinson disease COPD (chronic obstructive pulmonary disease) Acute diastolic (congestive) heart failure Atrial fibrillation with rapid ventricular response (12/15/20) Essential (primary) hypertension Seizure disorder Bilateral pleural effusion Surgical History S/P exploratory laparotomy S/P cholecystectomy S/P appendectomy History of cardioversion (01/09/21) Family History Father Hypertension Mother Parkinsons disease Social History household members: spouse Smoking Status: Former smoker how long ago did patient quit smoking: Quite remotely, but did smoke again x 1 month in 2020 but has since quit. alcohol intake: never substance use type: does not use ROS Const Const: Positive for other (Feeling good); Negative for fatigue or weakness Eyes Eyes: Negative for change in vision ENT ENT: Negative for dizzi (more content not included)... Normal [facility] LAR[facility],RAMSES S ([id number]) 1940 M Date Time Provider Department 01/01/25 4:20 PM DARCIE MCCANN During your visit today, we recorded the following information about you: Temperature Pulse Blood pressure Weight 97.8 degrees 76/minute 110/66 68.5 kg Darcie Mccann APRN.[employer] PRODUCTION MACHINE OPERATOR 01/01/2025 5:16 PM Signed This is a 84 year old male who presents today with: Patient presents with: Follow Up: 5 month exam HISTORY OF PRESENT ILLNESS: Ramses Gilliland is a 84 year old male. Patient presents with: Follow Up: 5 month exam Cough for about 3 weeks. Non-productive Has gone through 3 bottles of cough syrup No fever or chills No headache No PND No nasal congestion No sore throat PAST MEDICAL HISTORY: 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) 01/31/2015 Seizures (HCC) 2006 Tobacco abuse 09/30/2014 Vascular dementia (HCC) 09/30/2014 Vertebral compression fracture (HCC) 11/04/2017 Vitamin D deficiency 09/19/2017 PAST SURGICAL HISTORY Procedure Laterality Date APPENDECTOMY remote CATARACT SURGERY, COMPLEX 2011, 2012 IOLs CHOLECYSTECTOMY 2004 laparoscopic CYSTOSCOPY 2008 PAST SURGICAL HISTORY OF 2007 prostate cancer external radiation rx PAST SURGICAL HISTORY OF surgery for PUD complications Billroth II ALLERGIES Patient has no known allergies. MEDICATIONS Current Outpatient Medications Medication Sig MULTIVITAMIN ORAL Take by mouth. albuterol HFA (PROVENTIL HFA, VENTOLIN HFA) 90 mcg/actuation inhaler Inhale 2 Puffs as instructed every 6 hours as needed. aspirin, enteric coated (ASPIRIN, ENTERIC COATED) 81 mg EC tablet Take 81 mg by mouth once daily. folic acid 1 mg tablet Take 1 tablet by mouth once daily. levothyroxine (SYNTHROID) 25 mcg tablet Take 1 tablet by mouth once daily. Take on empty stomach. For thyroid. levETIRAcetam (KEPPRA) 750 mg tablet Take 1 tablet by mouth two times a day. Vitamin E, dl, acetate, (VITAMIN E) 400 unit capsule Take 400 Units by mouth once daily. furosemide (LASIX) 40 mg tablet Take 1 tablet by mouth two times a day. (Patient not taking: Reported on 01/01/2025) potassium chloride 20 mEq TbER Take 1 tablet by mouth two times a day. metoprolol tartrate, short acting, (LOPRESSOR) 50 mg tablet Take 50 mg by mouth two times a day. cholecalciferol (VITAMIN D3) 1,000 unit tab tablet Take 3 capsules by mouth once daily. No current facility-administered medications for this visit. FAMILY HISTORY Problem Relation Age of Onset COPD Mother COPD Father Breast Cancer Sister Cancer Brother Social History Tobacco Use Smoking status: Former Current packs/day: 1.00 Average packs/day: 1 pack/day for 30.0 years (30.0 ttl pk-yrs) Types: Cigarettes Smokeless tobacco: Never Substance Use Topics Alcohol use: No Drug use: No REVIEW OF SYSTEMS GENERAL: Some weight loss since having gall bladder out- gets diarrhea, no malaise, no fevers/chills HEENT: Negative for frequent or significant headaches, No changes in hearing or vision. NECK: Negative for lumps, goiter, pain and significant neck swelling RESPIRATORY: + non-productive cough, no hemoptysis, no wheezing, no dyspnea or shortness of breath CARDIOVASCULAR: Negative for chest pain, leg swelling, orthopnea, or palpitations GI: No nausea, vomiting, some diarrhea/ no constipation. No hematochezia/melena. No heartburn or reflux symptoms. : No history of dysuria, frequency or incontinence MUSCULOSKELETAL: Negative for joint pain or swelling. SKIN: Negative for lesions, rash, and itching ENDOCRINE: Negative for cold or heat intolerance, polyuria, polydipsia and goiter NEURO: No history of headaches, syncope, paralysis, seizures or tremors- no seizures since on keppra MOOD: Negative for depression, anxiety, or suicidal ideation. EXAM: BP 145/97 Pulse 76 Temp 36.6 ?C (97.8 ?F) (Right Tympanic) Wt 68.5 kg (151 lb) SpO2 97% BMI 19.39 kg/m? PHYSICAL EXAM: Physical Exam Vitals reviewed. Constitutional: Appearance: Normal appearance. HENT: Head: Normocephalic. Right Ear: Ear canal and external ear normal. There is no impacted cerumen. Left Ear: Ear canal and external ear normal. There is no impacted cerumen. Ears: Comments: Can't see TM except small sliver d/t cerumen- not impacted Nose: No congestion. Cardiovas (more content not included)... Normal [facility] 08-14-2024 [facility] Telephone ([facility]) -- RAMSES GILLILAND ([id number]) 1940 M Date Time Provider Department 08/14/24 VU PULIDO [facility] During your visit today, we recorded the following information about you: Vu Pulido MD 08/14/2024 8:36 AM Signed White count is better. Rachelle Herman MA 08/14/2024 9:17 AM Signed Message left for return call. KAREN Harrington Rilee, MA 08/17/2024 10:37 AM Signed Called and spoke with pt's , Doris (who's able to receive medication information). Notified her of results below, she verbalized understanding. Liliana Kaminski MA Allergies As of Date: 08/14/2024 (No Known Allergies) Date Reviewed: 07/29/2024 Reviewed by: Silva Reyes PA-C - Fully Assessed Reason for Visit: Results [95] Cmt: Cbc Prescriptions as of 08/17/2024 - levothyroxine (SYNTHROID) 25 mcg tablet Take 1 tablet by mouth once daily. Take on empty stomach. For thyroid. - levETIRAcetam (KEPPRA) 750 mg tablet Take 1 tablet by mouth two times a day. - Vitamin E, dl, acetate, (VITAMIN E) 400 unit capsule Take 400 Units by mouth once daily. - folic acid 1 mg tablet Take 1 tablet by mouth once daily. - furosemide (LASIX) 40 mg tablet Take 1 tablet by mouth two times a day. - potassium chloride 20 mEq TbER Take 1 tablet by mouth two times a day. - metoprolol tartrate, short acting, (LOPRESSOR) 50 mg tablet Take 50 mg by mouth two times a day. - albuterol HFA (PROVENTIL HFA, VENTOLIN HFA) 90 mcg/actuation inhaler Inhale 2 Puffs as instructed every 6 hours as needed. - aspirin, enteric coated (ASPIRIN, ENTERIC COATED) 81 mg EC tablet Take 81 mg by mouth once daily. - cholecalciferol (VITAMIN D3) 1,000 unit tab tablet Take 3 capsules by mouth once daily. Problem List As Of Date 08/14/2024 Noted Resolved Rectal mass [K62.89] 02/04/2013 09/30/2014 History of duodenal ulcer [Z87.19] 02/04/2013 Prostate cancer (HCC) [C61] 09/30/2014 05/15/2022 Tobacco abuse [Z72.0] 09/30/2014 09/18/2017 History of CVA (cerebrovascular accident) [Z86.*09/30/2014 Memory loss [R41.3] 09/30/2014 05/17/2022 Vascular dementia [F01.50] 09/30/2014 Diarrhea following gastrointestinal surgery [R1*09/30/2014 11/04/2017 Seizure disorder as sequela of cerebrovascular *01/31/2015 Vitamin D deficiency [E55.9] 09/19/2017 Vertebral compression fracture (HCC) [M48.50XA] 11/04/2017 Age-related osteoporosis with current pathologi*11/04/2017 Hypertension, essential [I10] 05/02/2018 Personal history of malignant neoplasm of prost*10/17/2017 Closed fracture of shaft of humerus [S42.309A] 06/24/2018 08/05/2023 Encounter for screening for malignant neoplasm *10/17/2017 Parkinson's disease (HCC) [G20.A1] 10/27/2020 Persistent atrial fibrillation (HCC) [I48.19] 01/05/2021 Chronic anticoagulation [Z79.01] 01/05/2021 02/06/2023 Hypothyroidism, acquired [E03.9] 12/01/2021 Chronic obstructive pulmonary disease (HCC) [J4*10/05/2022 Acute bronchitis [J20.9] 11/05/2022 08/05/2023 Diagnosed: 08/05/2023 Acute diastolic heart failure (HCC) [I50.31] 08/05/2023 Diagnosed: 08/05/2023 Bilateral pleural effusion [J90] 08/05/2023 08/05/2023 Diagnosed: 08/05/2023 Congestive heart failure (HCC) [I50.9] 08/05/2023 Diagnosed: 08/05/2023 High level of cardiac marker [R74.8] 04/24/2022 Diagnosed: 08/05/2023 Syncope due to orthostatic hypotension [I95.1] 08/05/2023 Diagnosed: 08/05/2023 Weight gain [R63.5] 08/05/2023 07/29/2024 Diagnosed: 08/05/2023 Fatty liver [K76.0] 08/05/2023 Encounter Status:Closed by LILIANA KAMINSKI on 08/17/24 Normal [facility] CBC W Auto Differential pane l (Bld)on 08-13-2024 Basophils (Bld) [#/Vol] 0.03 10*3/uL Normal <0.11 [facility] Comment on above: Order Comment: Speci men Type: BLOOD SPECIMENOrdering Facility: [facility] Address: [address] [place] [address] Performed By: #### 5 7021-8 ####[facility] [id number] [place] [address] [place] Basophils/100 WBC (Bld) 0.4 % Normal [facility] Comment on above: Order Comment: Speci men Type: BLOOD SPECIMENOrdering Facility: [facility] Address: [address] [place] [address] Performed By: #### 5 7021-8 ####[facility] [id number] [place] [address] [place] Differential cell count method Nom (Bld) Auto Normal [facility] Comment on above: Order Comment: Speci men Type: BLOOD SPECIMENOrdering Facility: [facility] Address: [address] [place] [address] Performed By: #### 5 7021-8 ####[facility] [id number] [place] [address] [place] Eosinophils (Bld) [#/Vol] 0.12 10*3/uL Normal <0.46 [facility] Comment on above: Order Comment: Speci men Type: BLOOD SPECIMENOrdering Facility: [facility] Address: [address] [place] [address] Performed By: #### 5 7021-8 ####[facility] [id number] [place] [address] [place] Eosinophils/100 WBC (Bld) 1.6 % Normal [facility] Comment on above: Order Comment: Speci men Type: BLOOD SPECIMENOrdering Facility: [facility] Address: [address] [place] [address] Performed By: #### 5 7021-8 ####[facility] LABCLIA [id number] [place] [address] [place] Erythrocyte distribution width (RBC) [Ratio] 13.1 % Normal 11.5-15.0 [facility] Comment on above: Order Comment: Speci men Type: BLOOD SPECIMENOrdering Facility: [facility] Address: [address] [place] [address] Performed By: #### 5 7021-8 ####[facility]CL[facility] [id number] [place] [address] [place] Hematocrit (Bld) [Volume fraction] 46.6 % Normal 39.0-51.0 [facility] Comment on above: Order Comment: Speci men Type: BLOOD SPECIMENOrdering Facility: [facility] Address: [address] [place] [address] Performed By: #### 5 7021-8 ####[facility]CL[facility] [id number] [place] [address] [place] Hemoglobin (Bld) [Mass/Vol] 15.2 g/dL Normal 13.0-17.0 [facility] Comment on above: Order Comment: Speci men Type: BLOOD SPECIMENOrdering Facility: [facility] Address: [address] [place] [address] Performed By: #### 5 7021-8 ####[facility] LABCL[facility] [id number] [place] [address] [place] Immature granulocytes (Bld) [#/Vol] 0.04 10*3/uL Normal <0.10 [facility] Comment on above: Order Comment: Speci men Type: BLOOD SPECIMENOrdering Facility: [facility] Address: [address] [place] [address] Performed By: #### 5 7021-8 ####[facility]CL[facility] [id number] [place] [address] [place] Immature granulocytes/100 WBC (Bld) 0.5 % Normal [facility] Comment on above: Order Comment: Speci men Type: BLOOD SPECIMENOrdering Facility: [facility] Address: [address] [place] [address] Performed By: #### 5 7021-8 ####[facility]CL[facility] [id number] [place] [address] [place] Lymphocytes (Bld) [#/Vol] 2.01 10*3/uL Normal 1.00-4.00 [facility] Comment on above: Order Comment: Speci men Type: BLOOD SPECIMENOrdering Facility: [facility] Address: [address] [place] [address] Performed By: #### 5 7021-8 ####[facility]CL[facility] [id number] [place] [address] [place] Lymphocytes/100 WBC (Bld) 26.1 % Normal [facility] Comment on above: Order Comment: Speci men Type: BLOOD SPECIMENOrdering Facility: [facility] Address: [address] [place] [address] Performed By: #### 5 7021-8 ####[facility] LABIA [id number] [place] [address] [place] MCH (RBC) [Entitic mass] 31.7 pg Normal 26.0-34.0 [facility] Comment on above: Order Comment: Speci men Type: BLOOD SPECIMENOrdering Facility: [facility] Address: [address] [place] [address] Performed By: #### 5 7021-8 ####[facility] LABIA [id number] [place] [address] [place] MCHC (RBC) [Mass/Vol] 32.6 g/dL Normal 30.5-36.0 [facility] Comment on above: Order Comment: Speci men Type: BLOOD SPECIMENOrdering Facility: [facility] Address: [address] [place] [address] Performed By: #### 5 7021-8 ####[facility] LABIA [id number] [place] [address] [place] MCV (RBC) [Entitic vol] 97.3 fL Normal 80.0-100.0 [facility] Comment on above: Order Comment: Speci men Type: BLOOD SPECIMENOrdering Facility: [facility] Address: [address] [place] [address] Performed By: #### 5 7021-8 ####[facility] LABIA [id number] [place] [address] [place] Monocytes (Bld) [#/Vol] 0.96 10*3/uL High <0.87 [facility] Comment on above: Order Comment: Speci men Type: BLOOD SPECIMENOrdering Facility: [facility] Address: [address] [place] [address] Performed By: #### 5 7021-8 ####[facility]CL[facility] [id number] [place] [address] [place] Monocytes/100 WBC (Bld) 12.5 % Normal [facility] Comment on above: Order Comment: Speci men Type: BLOOD SPECIMENOrdering Facility: [facility] Address: [address] [place] [address] Performed By: #### 5 7021-8 ####[facility]CL[facility] [id number] [place] [address] [place] Neutrophils (Bld) [#/Vol] 4.53 10*3/uL Normal 1.45-7.50 [facility] Comment on above: Order Comment: Speci men Type: BLOOD SPECIMENOrdering Facility: [facility] Address: [address] [place] [address] Performed By: #### 5 7021-8 ####[facility]CL[facility] [id number] [place] [address] [place] Neutrophils/100 WBC (Bld) 58.9 % Normal [facility] Comment on above: Order Comment: Speci men Type: BLOOD SPECIMENOrdering Facility: [facility] Address: [address] [place] [address] Performed By: #### 5 7021-8 ####[facility] LABCL[facility] [id number] [place] [address] [place] Nucleated RBC (Bld) [#/Vol] 10*3/uL Normal <0.01 [facility] Comment on above: Order Comment: Speci men Type: BLOOD SPECIMENOrdering Facility: [facility] Address: [address] [place] [address] Performed By: #### 5 7021-8 ####[facility] LABCLIA [id number] [place] [id number] [place] Nucleated RBC/100 WBC (Bld) [Ratio] 0.0 /100 WBC Normal [facility] Comment on above: Order Comment: Speci men Type: BLOOD SPECIMENOrdering Facility: [facility] Address: [address] [place] [address] Performed By: #### 5 7021-8 ####[facility] LABIA [id number] [place] [address] [place] Platelet mean volume (Bld) [Entitic vol] 11.9 fL Normal 9.0-12.7 [facility] Comment on above: Order Comment: Speci men Type: BLOOD SPECIMENOrdering Facility: [facility] Address: [address] [place] [address] Performed By: #### 5 7021-8 ####[facility] LABIA [id number] [place] [address] [place] Platelets (Bld) [#/Vol] 306 10*3/uL Normal 150-400 [facility] Comment on above: Order Comment: Speci men Type: BLOOD SPECIMENOrdering Facility: [facility] Address: [address] [place] [address] Performed By: #### 5 7021-8 ####[facility] LABIA [id number] [place] [address] [place] RBC (Bld) [#/Vol] 4.79 10*6/uL Normal 4.20-6.00 [facility] Comment on above: Order Comment: Speci men Type: BLOOD SPECIMENOrdering Facility: [facility] Address: [address] [place] [address] Performed By: #### 5 7021-8 ####[facility] LABIA [id number] [place] [address] [place] WBC (Bld) [#/Vol] 7.69 10*3/uL Normal 3.70-11.00 [facility] Comment on above: Order Comment: Speci men Type: BLOOD SPECIMENOrdering Facility: [facility] Address: [address] [place] [address] Performed By: #### 5 7021-8 ####[facility] VITALY [id number] [id number] [id number] [facility] Edmund 07-30-2024 CNPN Telephone (FAMWS) -- DARSHANARAMSES Oquendo ([id number]) 1940 M Date Time Provider Department 07/30/24 VU PULIDO [facility] During your visit today, we recorded the following information about you: Vu Pulido MD 07/30/2024 7:57 AM Signed Let them know his covid, flu and rsv swab was negative. Montserrat Connor MA 07/30/2024 8:40 AM Signed notified of results Allergies As of Date: 07/30/2024 (No Known Allergies) Date Reviewed: 07/29/2024 Reviewed by: Silva Reyes PA-C - Fully Assessed Reason for Visit: Results [95] Prescriptions as of 07/30/2024 - levothyroxine (SYNTHROID) 25 mcg tablet Take 1 tablet by mouth once daily. Take on empty stomach. For thyroid. - levETIRAcetam (KEPPRA) 750 mg tablet Take 1 tablet by mouth two times a day. - Vitamin E, dl, acetate, (VITAMIN E) 400 unit capsule Take 400 Units by mouth once daily. - folic acid 1 mg tablet Take 1 tablet by mouth once daily. - furosemide (LASIX) 40 mg tablet Take 1 tablet by mouth two times a day. - potassium chloride 20 mEq TbER Take 1 tablet by mouth two times a day. - metoprolol tartrate, short acting, (LOPRESSOR) 50 mg tablet Take 50 mg by mouth two times a day. - albuterol HFA (PROVENTIL HFA, VENTOLIN HFA) 90 mcg/actuation inhaler Inhale 2 Puffs as instructed every 6 hours as needed. - aspirin, enteric coated (ASPIRIN, ENTERIC COATED) 81 mg EC tablet Take 81 mg by mouth once daily. - cholecalciferol (VITAMIN D3) 1,000 unit tab tablet Take 3 capsules by mouth once daily. Problem List As Of Date 07/30/2024 Noted Resolved Rectal mass [K62.89] 02/04/2013 09/30/2014 History of duodenal ulcer [Z87.19] 02/04/2013 Prostate cancer (HCC) [C61] 09/30/2014 05/15/2022 Tobacco abuse [Z72.0] 09/30/2014 09/18/2017 History of CVA (cerebrovascular accident) [Z86.*09/30/2014 Memory loss [R41.3] 09/30/2014 05/17/2022 Vascular dementia [F01.50] 09/30/2014 Diarrhea following gastrointestinal surgery [R1*09/30/2014 11/04/2017 Seizure disorder as sequela of cerebrovascular *01/31/2015 Vitamin D deficiency [E55.9] 09/19/2017 Vertebral compression fracture (HCC) [M48.50XA] 11/04/2017 Age-related osteoporosis with current pathologi*11/04/2017 Hypertension, essential [I10] 05/02/2018 Personal history of malignant neoplasm of prost*10/17/2017 Closed fracture of shaft of humerus [S42.309A] 06/24/2018 08/05/2023 Encounter for screening for malignant neoplasm *10/17/2017 Parkinson's disease (HCC) [G20.A1] 10/27/2020 Persistent atrial fibrillation (HCC) [I48.19] 01/05/2021 Chronic anticoagulation [Z79.01] 01/05/2021 02/06/2023 Hypothyroidism, acquired [E03.9] 12/01/2021 Chronic obstructive pulmonary disease (HCC) [J4*10/05/2022 Acute bronchitis [J20.9] 11/05/2022 08/05/2023 Diagnosed: 08/05/2023 Acute diastolic heart failure (HCC) [I50.31] 08/05/2023 Diagnosed: 08/05/2023 Bilateral pleural effusion [J90] 08/05/2023 08/05/2023 Diagnosed: 08/05/2023 Congestive heart failure (HCC) [I50.9] 08/05/2023 Diagnosed: 08/05/2023 High level of cardiac marker [R74.8] 04/24/2022 Diagnosed: 08/05/2023 Syncope due to orthostatic hypotension [I95.1] 08/05/2023 Diagnosed: 08/05/2023 Weight gain [R63.5] 08/05/2023 07/29/2024 Diagnosed: 08/05/2023 Fatty liver [K76.0] 08/05/2023 Encounter Status:Closed by MONTSERRAT CONNOR on 07/30/24 Normal [facility] Telephone (FAMPWS) -- RAMSES GILLILAND ([id number]) 1940 M Date Time Provider Department 07/30[facility] During your visit today, we recorded the following information about you: Vu Pulido MD 07/30/2024 9:05 AM Signed His labs are stable, except for his white count is up. Could likely be related to his cold. Recheck cbc in two weeks. Liliana Kaminski MA 07/30/2024 9:48 AM Signed Call to pt, spoke with , Doris who is okay to receive medical information. Notified her of results and recommendations below from Provider. She verbalized understanding. Liliana Kaminski MA Allergies As of Date: 07/30/2024 (No Known Allergies) Date Reviewed: 07/29/2024 Reviewed by: Silva Reyes PA-C - Fully Assessed Reason for Visit: Results [95] Primary Visit Diagnosis:Leukocytosis, unspecified type [D72.829] Order(s):COMPLETE BLOOD COUNT AND DIFFERENTIAL [SQCBCDIF] Order #: [id number] FUTURE Prescriptions as of 07/30/2024 - levothyroxine (SYNTHROID) 25 mcg tablet Take 1 tablet by mouth once daily. Take on empty stomach. For thyroid. - levETIRAcetam (KEPPRA) 750 mg tablet Take 1 tablet by mouth two times a day. - Vitamin E, dl, acetate, (VITAMIN E) 400 unit capsule Take 400 Units by mouth once daily. - folic acid 1 mg tablet Take 1 tablet by mouth once daily. - furosemide (LASIX) 40 mg tablet Take 1 tablet by mouth two times a day. - potassium chloride 20 mEq TbER Take 1 tablet by mouth two times a day. - metoprolol tartrate, short acting, (LOPRESSOR) 50 mg tablet Take 50 mg by mouth two times a day. - albuterol HFA (PROVENTIL HFA, VENTOLIN HFA) 90 mcg/actuation inhaler Inhale 2 Puffs as instructed every 6 hours as needed. - aspirin, enteric coated (ASPIRIN, ENTERIC COATED) 81 mg EC tablet Take 81 mg by mouth once daily. - cholecalciferol (VITAMIN D3) 1,000 unit tab tablet Take 3 capsules by mouth once daily. Problem List As Of Date 07/30/2024 Noted Resolved Rectal mass [K62.89] 02/04/2013 09/30/2014 History of duodenal ulcer [Z87.19] 02/04/2013 Prostate cancer (HCC) [C61] 09/30/2014 05/15/2022 Tobacco abuse [Z72.0] 09/30/2014 09/18/2017 History of CVA (cerebrovascular accident) [Z86.*09/30/2014 Memory loss [R41.3] 09/30/2014 05/17/2022 Vascular dementia [F01.50] 09/30/2014 Diarrhea following gastrointestinal surgery [R1*09/30/2014 11/04/2017 Seizure disorder as sequela of cerebrovascular *01/31/2015 Vitamin D deficiency [E55.9] 09/19/2017 Vertebral compression fracture (HCC) [M48.50XA] 11/04/2017 Age-related osteoporosis with current pathologi*11/04/2017 Hypertension, essential [I10] 05/02/2018 Personal history of malignant neoplasm of prost*10/17/2017 Closed fracture of shaft of humerus [S42.309A] 06/24/2018 08/05/2023 Encounter for screening for malignant neoplasm *10/17/2017 Parkinson's disease (HCC) [G20.A1] 10/27/2020 Persistent atrial fibrillation (HCC) [I48.19] 01/05/2021 Chronic anticoagulation [Z79.01] 01/05/2021 02/06/2023 Hypothyroidism, acquired [E03.9] 12/01/2021 Chronic obstructive pulmonary disease (HCC) [J4*10/05/2022 Acute bronchitis [J20.9] 11/05/2022 08/05/2023 Diagnosed: 08/05/2023 Acute diastolic heart failure (HCC) [I50.31] 08/05/2023 Diagnosed: 08/05/2023 Bilateral pleural effusion [J90] 08/05/2023 08/05/2023 Diagnosed: 08/05/2023 Congestive heart failure (HCC) [I50.9] 08/05/2023 Diagnosed: 08/05/2023 High level of cardiac marker [R74.8] 04/24/2022 Diagnosed: 08/05/2023 Syncope due to orthostatic hypotension [I95.1] 08/05/2023 Diagnosed: 08/05/2023 Weight gain [R63.5] 08/05/2023 07/29/2024 Diagnosed: 08/05/2023 Fatty liver [K76.0] 08/05/2023 Encounter Status:Closed by LILIANA KAMINSKI on 07/30/[facility] RAMSES GILLILAND ([id number]) 1940 M Date Time Provider Department 07/30/24 USMAN SANCHEZ During your visit today, we recorded the following information about you: Usman Sanchez MSW 07/30/2024 2:12 PM Signed Rishi left message for patient/spouse to call Rishi back to discuss home care resource needs. Usman Sanchez MSW 08/05/2024 9:26 AM Signed Sw left 2nd message to have call returned to discuss home care resource needs. Allergies As of Date: 07/30/2024 (No Known Allergies) Date Reviewed: 07/29/2024 Reviewed by: Sliva Reyes PA-C - Fully Assessed Prescriptions as of 08/10/2024 - levothyroxine (SYNTHROID) 25 mcg tablet Take 1 tablet by mouth once daily. Take on empty stomach. For thyroid. - levETIRAcetam (KEPPRA) 750 mg tablet Take 1 tablet by mouth two times a day. - Vitamin E, dl, acetate, (VITAMIN E) 400 unit capsule Take 400 Units by mouth once daily. - folic acid 1 mg tablet Take 1 tablet by mouth once daily. - furosemide (LASIX) 40 mg tablet Take 1 tablet by mouth two times a day. - potassium chloride 20 mEq TbER Take 1 tablet by mouth two times a day. - metoprolol tartrate, short acting, (LOPRESSOR) 50 mg tablet Take 50 mg by mouth two times a day. - albuterol HFA (PROVENTIL HFA, VENTOLIN HFA) 90 mcg/actuation inhaler Inhale 2 Puffs as instructed every 6 hours as needed. - aspirin, enteric coated (ASPIRIN, ENTERIC COATED) 81 mg EC tablet Take 81 mg by mouth once daily. - cholecalciferol (VITAMIN D3) 1,000 unit tab tablet Take 3 capsules by mouth once daily. Problem List As Of Date 07/30/2024 Noted Resolved Rectal mass [K62.89] 02/04/2013 09/30/2014 History of duodenal ulcer [Z87.19] 02/04/2013 Prostate cancer (HCC) [C61] 09/30/2014 05/15/2022 Tobacco abuse [Z72.0] 09/30/2014 09/18/2017 History of CVA (cerebrovascular accident) [Z86.*09/30/2014 Memory loss [R41.3] 09/30/2014 05/17/2022 Vascular dementia [F01.50] 09/30/2014 Diarrhea following gastrointestinal surgery [R1*09/30/2014 11/04/2017 Seizure disorder as sequela of cerebrovascular *01/31/2015 Vitamin D deficiency [E55.9] 09/19/2017 Vertebral compression fracture (HCC) [M48.50XA] 11/04/2017 Age-related osteoporosis with current pathologi*11/04/2017 Hypertension, essential [I10] 05/02/2018 Personal history of malignant neoplasm of prost*10/17/2017 Closed fracture of shaft of humerus [S42.309A] 06/24/2018 08/05/2023 Encounter for screening for malignant neoplasm *10/17/2017 Parkinson's disease (HCC) [G20.A1] 10/27/2020 Persistent atrial fibrillation (HCC) [I48.19] 01/05/2021 Chronic anticoagulation [Z79.01] 01/05/2021 02/06/2023 Hypothyroidism, acquired [E03.9] 12/01/2021 Chronic obstructive pulmonary disease (HCC) [J4*10/05/2022 Acute bronchitis [J20.9] 11/05/2022 08/05/2023 Diagnosed: 08/05/2023 Acute diastolic heart failure (HCC) [I50.31] 08/05/2023 Diagnosed: 08/05/2023 Bilateral pleural effusion [J90] 08/05/2023 08/05/2023 Diagnosed: 08/05/2023 Congestive heart failure (HCC) [I50.9] 08/05/2023 Diagnosed: 08/05/2023 High level of cardiac marker [R74.8] 04/24/2022 Diagnosed: 08/05/2023 Syncope due to orthostatic hypotension [I95.1] 08/05/2023 Diagnosed: 08/05/2023 Weight gain [R63.5] 08/05/2023 07/29/2024 Diagnosed: 08/05/2023 Fatty liver [K76.0] 08/05/2023 Encounter Status:Closed by USMAN SANCHEZ on 08/10/24 Normal [facility] CBC W Auto Differential pane l (Bld)on 07-29-2024 Basophils (Bld) [#/Vol] 0.03 10*3/uL [facility] Basophils/100 WBC (Bld) 0.2 % [facility] Differential cell count method Nom (Bld) Auto [facility] Eosinophils (Bld) [#/Vol] 0.09 10*3/uL [facility] Eosinophils/100 WBC (Bld) 0.7 % [facility] Erythrocyte distribution width (RBC) [Ratio] 13.7 % 11.5 - 15.0 % [facility] Hematocrit (Bld) [Volume fraction] 47.9 % 39.0 - 51.0 % [facility] Hemoglobin (Bld) [Mass/Vol] 14.8 g/dL 13.0 - 17.0 g/dL [facility] Immature granulocytes (Bld) [#/Vol] 0.05 10*3/uL [facility] Immature granulocytes/100 WBC (Bld) 0.4 % [facility] Interpretation and review of laboratory results Abnormal [facility] Lymphocytes (Bld) [#/Vol] 1.39 10*3/uL [facility] Lymphocytes/100 WBC (Bld) 10.4 % [facility] MCH (RBC) [Entitic mass] 31.3 pg 26.0 - 34.0 pg [facility] MCHC (RBC) [Mass/Vol] 30.9 g/dL 30.5 - 36.0 g/dL [facility] MCV (RBC) [Entitic vol] 101.3 fL High 80.0 - 100.0 fL [facility] Monocytes (Bld) [#/Vol] 1.38 10*3/uL High [facility] Monocytes/100 WBC (Bld) 10.4 % [facility] Neutrophils (Bld) [#/Vol] 10.38 10*3/uL High [facility] Neutrophils/100 WBC (Bld) 77.9 % [facility] Nucleated RBC (Bld) [#/Vol] [facility] Nucleated RBC/100 WBC (Bld) [Ratio] 0.0 % /100 WBC [facility] Platelet mean volume (Bld) [Entitic vol] 11.4 fL 9.0 - 12.7 fL [facility] Platelets (Bld) [#/Vol] 306 10*3/uL [facility] RBC (Bld) [#/Vol] 4.73 10*6/uL 4.20 - 6.0 0 m/uL [facility] WBC (Bld) [#/Vol] 13.32 10*3/uL [facility] Basophils (Bld) [#/Vol] 0.03 10*3/uL Normal <0.11 [facility] Comment on above: Order Comment: Speci men Type: BLOOD SPECIMENOrdering Facility: [facility] Address: [address] [place] [address] Performed By: #### 5 7021-8 ####[facility] LABCLIA [id number] [place] [address] [place] Basophils/100 WBC (Bld) 0.2 % Normal [facility] Comment on above: Order Comment: Speci men Type: BLOOD SPECIMENOrdering Facility: [facility] Address: [address] [place] [address] Performed By: #### 5 7021-8 ####[facility] LABCLIA [id number] [place] [address] [place] Differential cell count method Nom (Bld) Auto Normal [facility] Comment on above: Order Comment: Speci men Type: BLOOD SPECIMENOrdering Facility: [facility] Address: [address] [place] [address] Performed By: #### 5 7021-8 ####[facility] LABCL[facility] [id number] [place] [address] [place] Eosinophils (Bld) [#/Vol] 0.09 10*3/uL Normal <0.46 [facility] Comment on above: Order Comment: Speci men Type: BLOOD SPECIMENOrdering Facility: [facility] Address: [address] [place] [address] Performed By: #### 5 7021-8 ####[facility]CL[facility] [id number] [place] [address] [place] Eosinophils/100 WBC (Bld) 0.7 % Normal [facility] Comment on above: Order Comment: Speci men Type: BLOOD SPECIMENOrdering Facility: [facility] Address: [address] [place] [address] Performed By: #### 5 7021-8 ####[facility] LABCLIA [id number] [place] [address] [place] Erythrocyte distribution width (RBC) [Ratio] 13.7 % Normal 11.5-15.0 [facility] Comment on above: Order Comment: Speci men Type: BLOOD SPECIMENOrdering Facility: [facility] Address: [address] [place] [address] Performed By: #### 5 7021-8 ####[facility] LABCL[facility] [id number] [place] [address] [place] Hematocrit (Bld) [Volume fraction] 47.9 % Normal 39.0-51.0 [facility] Comment on above: Order Comment: Speci men Type: BLOOD SPECIMENOrdering Facility: [facility] Address: [address] [place] [address] Performed By: #### 5 7021-8 ####[facility] LABIA [id number] [place] [address] [place] Hemoglobin (Bld) [Mass/Vol] 14.8 g/dL Normal 13.0-17.0 [facility] Comment on above: Order Comment: Speci men Type: BLOOD SPECIMENOrdering Facility: [facility] Address: [address] [place] [address] Performed By: #### 5 7021-8 ####[facility]IA [id number] [place] [address] [place] Immature granulocytes (Bld) [#/Vol] 0.05 10*3/uL Normal <0.10 [facility] Comment on above: Order Comment: Speci men Type: BLOOD SPECIMENOrdering Facility: [facility] Address: [address] [place] [address] Performed By: #### 5 7021-8 ####[facility]CL[facility] [id number] [place] [address] [place] Immature granulocytes/100 WBC (Bld) 0.4 % Normal [facility] Comment on above: Order Comment: Speci men Type: BLOOD SPECIMENOrdering Facility: [facility] Address: [address] [place] [address] Performed By: #### 5 7021-8 ####[facility] LABCL[facility] [id number] [place] [address] [place] Lymphocytes (Bld) [#/Vol] 1.39 10*3/uL Normal 1.00-4.00 [facility] Comment on above: Order Comment: Speci men Type: BLOOD SPECIMENOrdering Facility: [facility] Address: [address] [place] [address] Performed By: #### 5 7021-8 ####[facility]CL[facility] [id number] [place] [address] [place] Lymphocytes/100 WBC (Bld) 10.4 % Normal [facility] Comment on above: Order Comment: Speci men Type: BLOOD SPECIMENOrdering Facility: [facility] Address: [address] [place] [address] Performed By: #### 5 7021-8 ####[facility]CL[facility] [id number] [place] [address] [place] MCH (RBC) [Entitic mass] 31.3 pg Normal 26.0-34.0 [facility] Comment on above: Order Comment: Speci men Type: BLOOD SPECIMENOrdering Facility: [facility] Address: [address] [place] [address] Performed By: #### 5 7021-8 ####[facility] [id number] [place] [address] [place] MCHC (RBC) [Mass/Vol] 30.9 g/dL Normal 30.5-36.0 [facility] Comment on above: Order Comment: Speci men Type: BLOOD SPECIMENOrdering Facility: [facility] Address: [address] [place] [address] Performed By: #### 5 7021-8 ####[facility] [id number] [place] [address] [place] MCV (RBC) [Entitic vol] 101.3 fL High 80.0-100.0 [facility] Comment on above: Order Comment: Speci men Type: BLOOD SPECIMENOrdering Facility: [facility] Address: [address] [place] [address] Performed By: #### 5 7021-8 ####[facility] [id number] [place] [address] [place] Monocytes (Bld) [#/Vol] 1.38 10*3/uL High <0.87 [facility] Comment on above: Order Comment: Speci men Type: BLOOD SPECIMENOrdering Facility: [facility] Address: [address] [place] [address] Performed By: #### 5 7021-8 ####[facility] [id number] [place] [address] [place] Monocytes/100 WBC (Bld) 10.4 % Normal [facility] Comment on above: Order Comment: Speci men Type: BLOOD SPECIMENOrdering Facility: [facility] Address: [address] [place] [address] Performed By: #### 5 7021-8 ####[facility] [id number] [place] [address] [place] Neutrophils (Bld) [#/Vol] 10.38 10*3/uL High 1.45-7.50 [facility] Comment on above: Order Comment: Speci men Type: BLOOD SPECIMENOrdering Facility: [facility] Address: [address] [place] [address] Performed By: #### 5 7021-8 ####[facility] [id number] [place] [address] [place] Neutrophils/100 WBC (Bld) 77.9 % Normal [facility] Comment on above: Order Comment: Speci men Type: BLOOD SPECIMENOrdering Facility: [facility] Address: [address] [place] [address] Performed By: #### 5 7021-8 ####[facility] [id number] [place] [address] [place] Nucleated RBC (Bld) [#/Vol] 10*3/uL Normal <0.01 [facility] Comment on above: Order Comment: Speci men Type: BLOOD SPECIMENOrdering Facility: [facility] Address: [address] [place] [address] Performed By: #### 5 7021-8 ####[facility] [id number] [place] [address] [place] Nucleated RBC/100 WBC (Bld) [Ratio] 0.0 /100 WBC Normal [facility] Comment on above: Order Comment: Speci men Type: BLOOD SPECIMENOrdering Facility: [facility] Address: [address] [place] [address] Performed By: #### 5 7021-8 ####[facility] [id number] [place] [address] [place] Platelet mean volume (Bld) [Entitic vol] 11.4 fL Normal 9.0-12.7 [facility] Comment on above: Order Comment: Speci men Type: BLOOD SPECIMENOrdering Facility: [facility] Address: [address] [place] [address] Performed By: #### 5 7021-8 ####[facility] [id number] [place] [address] [place] Platelets (Bld) [#/Vol] 306 10*3/uL Normal 150-400 [facility] Comment on above: Order Comment: Speci men Type: BLOOD SPECIMENOrdering Facility: [facility] Address: [address] [place] [address] Performed By: #### 5 7021-8 ####[facility] [id number] [place] [address] [place] RBC (Bld) [#/Vol] 4.73 10*6/uL Normal 4.20-6.00 [facility] Comment on above: Order Comment: Speci men Type: BLOOD SPECIMENOrdering Facility: [facility] Address: [address] [place] [address] Performed By: #### 5 7021-8 ####[facility] [id number] [place] [address] [place] WBC (Bld) [#/Vol] 13.32 10*3/uL High 3.70-11.00 [facility] Comment on above: Order Comment: Speci men Type: BLOOD SPECIMENOrdering Facility: [facility] Address: [address] [place] [address] Performed By: #### 5 7021-8 ####[facility] [id number] [place] [address] [place] CNOVon 07-29-2024 CNOV Office Visit (NEMOWS ) -- RAMSES GILLILAND ([id number]) 1940 M Date Time Provider Department 07/29/24 12:30 PM SILVA REYES During your visit today, we recorded the following information about you: Pulse Respiration Blood pressure Weight 78/minute 18/minute 106/64 68 kg Silva Reyes PA-C 07/29/2024 1:21 PM Signed ESTABLISHED PATIENT VISIT Last visit: 01/27/[address] Garcia ASSESSMENT/PLAN: 1. Vascular dementia without behavioral disturbance, psychotic disturbance, mood disturbance, or anxiety, unspecified dementia severity (HCC) - ICD9: 290.40, ICD10: F01.50 (primary diagnosis) Patient with impaired cognition as above (consistent with prior MOCA). Not driving and per family independent at home. However, suspect minimize cognitive deficits based on exam and interview today. D/w them the possibility of starting medication such as Namenda but they decline any additional meds. 2. History of CVA (cerebrovascular accident) - ICD9: V12.54, ICD10: Z86.73 No new recs. Continue ASA daily. Chol monitoring through PCP and statin as needed. BP goal <140/90. Glucose goal <140. 3. Parkinson's disease, unspecified whether dyskinesia present, unspecified whether manifestations fluctuate (HCC) - ICD9: 332.0, ICD10: G20.A1 Patient still with symptoms concerning for PD. Unfortunately due to compliance issues with Sinemet, I have never had the opportunity to evaluate the patient on Sinemet to see if symptoms improved. They are not wanting to restart. Thus, at this point would also d/c Sinemet CR at bedtime. Encouraged exercise and discussed fall precautions. They are not interested in PT. 4. 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 Continue Keppra 750mg BID. 6. Hypotension, unspecified hypotension type - ICD9: 458.9, ICD10: I95.9 Low BP in office. Question if due to Output > Input with pt on diuretic (Lasix 80mg daily) and minimal fluid intake per history provided. Pt to see Dr. Pulido this afternoon. Encouraged pt to keep that appointment for possible adjustments in diuretic. Vu Garcia MD CHIEF COMPLAINT: follow up HISTORY OF PRESENT ILLNESS: Ramses Gilliland is a 84 year old male, There were no vitals taken for this visit. with a PMH significant for PD, HTN, A fib, CHF, COPD, fatty liver, CVA, syncope. Last seen by Dr. Garcia on 01/27/24 for vascular dementia, CVA and PD. [place] stable at 11/09. Not driving. Declining meds for memory, no new symptoms of CVA. Patient not compliant with sinemet, deferring restarting this. Not interested in PT. On keppra 750mg bid for seizure prevention that occurred after stroke. Did have low BP, encouraged hydration and discussing lasix with PCP. Patient presents with his for follow-up appointment. Patient is acutely ill today, has a URI and is currently having a pending COVID test. Was exposed to COVID with multiple family members. Patient and primary concern today is frequent falls. Notes last appointment he has had couple falls a month. Primarily located in the bathroom as he cannot take his walker into the bathroom. Notes that his knees buckle and he falls to the ground. No significant injuries with any of these falls. Patient does not exercise and is not active throughout the day, primarily watches TV on the couch. Does not drink much water, but denies any lightheadedness. Denies any bradykinesia. notes that memory has been stable, no worsening. Drinks about 16 ounces of fluid a day. Denies any seizure activity, compliant with Keppra. No hallucinations, no constipation, sleep is stable, sleeps through the night. Appetite has been stable, no new concerns today other than noted above. REVIEW OF SYSTEMS GENERAL:No weight loss, malaise or fevers. HEENT:Negative for frequent or significant headaches, No changes in hearing or vision, no nose bleeds or other nasal problems NECK:Negative for lumps, goiter, pain and significant neck swelling RESPIRATORY: Negative for cough, wheezing or shortness of breath. CARDIOVASCULAR: Negative for chest pain, leg swelling or palpitations. GASTROINTESTINAL: Negative for abdominal discomfort, blood in stools or black stools or change in bowel habits GENITOURINARY: No history of dysuria, frequency or incontinence MUSCULOSKELETAL: Negative for joint pain or swelling, back pain or muscle pain. NEUROLOGIC:Negative for focal numbness or weakness, headaches and dizziness or syncope, vision changes, speech/languag changes - EXCEPT that as per HPI above. SKIN:Negative for lesions, rash, and itching. PSYCHIATRIC: Negative for sleep disturbance, mood disorder and recent psychosocial stressors. HEMATOLOGIC/LYMPHATIC/IMMU NOLOGIC:Negative (more content not included)... [facility] RAMSES GILLILAND ([id number]) 1940 M Date Time Provider Department 07/29/24 11:00 AM VU PULIDO During your visit today, we recorded the following information about you: Temperature Pulse Blood pressure Weight 98 degrees 78/minute 106/64 68 kg Height 1.88 m Vu Pulido MD 07/29/2024 11:26 AM Signed Patient presents with: 6 Month Exam HPI: Patient presents today for office visit for follow up. Has had a cough and runny nose X 3 days. Cough is non-productive. No wheezing. Denies any new or worsening shortness of breath. Mentions a scratchy throat and some sneezing. No fever, body aches or BUSTAMANTE. Was around family whom tested positive for Covid. His sister in law was diagnosed in the last week. Mentions had constant hiccups for 2 days straight a few days ago. Denies chest pain. No new or worsening shortness of breath. Rarely has to use rescue inhaler. Follows with Neurology, Dr. Garcia. Hx of seizures, Stroke, Parkinson's and Dementia. Appointment with Neuro this afternoon. Memory is about the same. Has fallen several times. Does use his walker. States appetite is about the same. Refers to hardly ever feeling hungry but eating ok when food is front of him. Drinking ok. states he doesn't drink a lot of water. Drinks pop. Left eye oh a lot. Sees his eye doctor regularly. Still sees [facility]. Weight is down a little bit. Discussed monitoring weight at home. No bowel changes No new moles. No abd pain. No unusual headache. No chronic cough. Note was copied and pasted, without alteration from:last ov reports that she has noticed a cough in the evening. Denies any swelling says he never has any swelling. She also thinks that he has hiccups after he eats and at night. Did have a fall a few weeks ago. No injury. None since. Using a walker. Weight is is stable. No swelling. No shortness of breath. No chest pain. No worsening neuro issues. No seizures No worsening tremor. Appetite is good. Bmp and bnp has been stable. Tsh was good recently. No issues with urine or bowels. MEDICATIONS: Current Outpatient Medications Medication Sig Vitamin E, dl, acetate, (VITAMIN E) 400 unit capsule Take 400 Units by mouth once daily. levETIRAcetam (KEPPRA) 750 mg tablet Take 1 tablet by mouth two times a day. levothyroxine (SYNTHROID) 25 mcg tablet Take 1 tablet by mouth once daily. Take on empty stomach. For thyroid. folic acid 1 mg tablet Take 1 tablet by mouth once daily. furosemide (LASIX) 40 mg tablet Take 1 tablet by mouth two times a day. potassium chloride 20 mEq TbER Take 1 tablet by mouth two times a day. metoprolol tartrate, short acting, (LOPRESSOR) 50 mg tablet Take 50 mg by mouth two times a day. albuterol HFA (PROVENTIL HFA, VENTOLIN HFA) 90 mcg/actuation inhaler Inhale 2 Puffs as instructed every 6 hours as needed. aspirin, enteric coated (ASPIRIN, ENTERIC COATED) 81 mg EC tablet Take 81 mg by mouth once daily. cholecalciferol (VITAMIN D3) 1,000 unit tab tablet Take 3 capsules by mouth once daily. No current facility-administered medications for this visit. 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) 2007: Seizures (HCC) 09/30/2014: Tobacco abuse 09/30/2014: Vascular dementia (HCC) 11/04/2017: Vertebral compression fracture (HCC) 09/19/2017: Vitamin D deficiency PAST SURGICAL HISTORY remote : APPENDECTOMY 2011, 2012: CATARACT SURGERY, COMPLEX Comment: IOLs 2005: CHOLECYSTECTOMY Comment: laparoscopic 2009: CYSTOSCOPY 2008: PAST SURGICAL HISTORY OF Comment: prostate cancer external radiation rx 1980s : PAST SURGICAL HISTORY OF Comment: surgery for PUD complications Billroth II FAMILY HISTORY Problem Relation Age of Onset COPD Mother COPD Father Breast Cancer Sister Cancer Brother Social History Tobacco Use Smoking status: Former Current packs/day: 1.00 Average packs/day: 1 pack/day for 30.0 years (30.0 ttl pk-yrs) Types: Cigarettes Smokeless tobacco: Never Substance Use Topics Alcohol use: No Drug use: No Reviewed current medications, allergies, past medical history, surgical history, family history and social history today. REVIEW OF SYSTEMS All other reviewed and (more content not included)... Normal [facility] COVID AND INFLUENZA A/B AND RSV PCR, ROUTINEon 07-29-2024 SARS-CoV-2 (COVID-19) RNA GERMAN+probe Ql (Unsp spec) SARS-COV-2 (AGENT OF COVID-19) RNA: Not detected INFLUENZA A RNA: Not detected INFLUENZA B RNA: Not detected RESPIRATORY SYNCYTIAL VIRUS (RSV) RNA: Not detected Normal [facility] Comment on above: Performed By: #### C VFLRS ####[facility] [id number] [place] [address] [place] COVID & INFLUENZA A/B & RSV PCR, ROUTINEon 07-29-2024 FLUAV RNA GERMAN+probe Ql (Unsp spec) Not detected Not Detected [facility] FLUBV RNA GERMAN+probe Ql (Unsp spec) Not detected Not Detected [facility] Interpretation and review of laboratory results Normal [facility] RSV A RNA GERMAN+probe Ql (Unsp spec) Not detected Not Detected [facility] SARS-CoV-2 (COVID-19) RNA GERMAN+probe Ql (Unsp spec) Not detected See comment [facility] Reference Range (the expected result in uninfected individuals): Not detected [facility] Comprehensive metabolic 2000 panelon 07-29-2024 Albumin [Mass/Vol] 4.0 g/dL Normal 3.9-4.9 [facility] Comment on above: Order Comment: Speci men Type: BLOOD SPECIMENOrdering Facility: [facility] Address: [address] [place] [address] Performed By: #### 2 4331-1, 3016-3, 28082-7 ####[facility] [id number] [address] [address] [place] ALP [Catalytic activity/Vol] 108 U/L Normal 38-113 [facility] Comment on above: Order Comment: Speci men Type: BLOOD SPECIMENOrdering Facility: [facility] Address: [address] [place] [address] Performed By: #### 2 4331-1, 3015-3, 56297-5 ####[facility] [id number] [place] [address] [place] ALT [Catalytic activity/Vol] 13 U/L Normal 10-54 [facility] Comment on above: Order Comment: Speci men Type: BLOOD SPECIMENOrdering Facility: [facility] Address: [address] [place] [address] Performed By: #### 2 4331-1, 3015-3, ####[facility] [id number] [place] [address] [place] Anion gap [Moles/Vol] 12 mmol/L Normal 8-15 [facility] Comment on above: Order Comment: Speci men Type: BLOOD SPECIMENOrdering Facility: [facility] Address: [address] [place], [place] [address] Performed By: #### 2 4331-1, 3015-3, ####[facility] [id number] [address] [address] [place] AST [Catalytic activity/Vol] 17 U/L Normal 14-40 [facility] Comment on above: Order Comment: Speci men Type: BLOOD SPECIMENOrdering Facility: [facility] Address: [address] [place], [place] [address] Performed By: #### 2 4331-1, 3015-3, 39696-8 ####[facility] [id number] [address] [address] [place] Bilirubin [Mass/Vol] 0.5 mg/dL Normal 0.2-1.3 [facility] Comment on above: Order Comment: Speci men Type: BLOOD SPECIMENOrdering Facility: [facility] Address: [address] [place], [place] [address] Performed By: #### 2 4331-1, 3015-3, ####[facility] [id number] [address] [address] [place] Calcium [Mass/Vol] 9.7 mg/dL Normal 8.5-10.2 [facility] Comment on above: Order Comment: Speci men Type: BLOOD SPECIMENOrdering Facility: [facility] Address: [address] [place] [address] Performed By: #### 2 4331-1, 3, ####[facility] [id number] [place] [id number] [place] Chloride [Moles/Vol] 103 mmol/L Normal 98-107 [facility] Comment on above: Order Comment: Speci men Type: BLOOD SPECIMENOrdering Facility: [facility] Address: [address] [place], [place] [address] Performed By: #### 2 4331-1, 3, ####[facility] [id number] [address] [address] [place] CO2 [Moles/Vol] 26 mmol/L Normal 22-30 [facility] Comment on above: Order Comment: Speci men Type: BLOOD SPECIMENOrdering Facility: [facility] Address: [address] [place], [place] [address] Performed By: #### 2 4331-1, 3015-3, 89194-8 ####[facility] [id number] [place] [address] [place] Creatinine [Mass/Vol] 0.77 mg/dL Normal 0.73-1.22 [facility] Comment on above: Order Comment: Connor covarrubias Type: BLOOD SPECIMENOrdering Facility: [facility] Address: [address] [place] [address] Performed By: #### 2 4331-1, 3016-3, 96307-6 ####[facility] [id number] [address] [facility] Creatinine and Glomerular filtration rate.predicted panel (S/P/Bld) 89 mL/min/1.73m??? Normal >=60 [facility] Comment on above: Order Comment: Connor covarrubias Type: BLOOD SPECIMENOrdering Facility: [facility] Address: [address] [place] [address] Result Comment: Nia mated Glomerular Filtration Rate (eGFR) is calculated using the 2020 CKD-EPI creatinine equation. This equation utilizes serum creatinine, sex, and age as parameters. The creatinine assay has traceable calibration to isotope dilution-mass spectrometry. Refer to KDIGO guidelines for clinical interpretation. In patients with unstable renal function, e.g. those with acute kidney injury, the eGFR may not accurately reflect actual GFR. Performed By: #### 2 4331-1, 6-3, 49538-9 ####[facility] [id number] [place] [address] [place] Glucose [Mass/Vol] 104 mg/dL High 74-99 [facility] Comment on above: Order Comment: Connor covarrubias Type: BLOOD SPECIMENOrdering Facility: [facility] Address: [address] [place] [address] Result Comment: The [place] Diabetes Association (ADA) provides guidance for cutoff values for fasting glucose and random glucose. The ADA defines fasting as no caloric intake for at least 8 hours. Fasting plasma glucose results between 100 to 125 [...] Standards of Medical Care in Diabetes 2016, [place] [employer]. Diabetes Care. 2016.39(Suppl 1). Performed By: #### 2 4331-1, 3015-3, ####[facility] [id number] [place] [address] [place] Potassium [Moles/Vol] 4.7 mmol/L Normal 3.7-5.1 [facility] Comment on above: Order Comment: Speci men Type: BLOOD SPECIMENOrdering Facility: [facility] Address: [address] [place] [address] Performed By: #### 2 4331-1, 3, ####[facility] [id number] [place] [address] [place] Protein [Mass/Vol] 7.1 g/dL Normal 6.3-8.0 [facility] Comment on above: Order Comment: Speci men Type: BLOOD SPECIMENOrdering Facility: [facility] Address: [address] [place] [address] Performed By: #### 2 4331-1, 3, ####[facility] [id number] [place] [address] [place] Sodium [Moles/Vol] 141 mmol/L Normal 136-144 [facility] Comment on above: Order Comment: Speci men Type: BLOOD SPECIMENOrdering Facility: [facility] Address: [address] [place] [address] Performed By: #### 2 4331-1, 3, ####[facility] [id number] [address] [address] [place] Urea nitrogen [Mass/Vol] 12 mg/dL Normal 9-24 [facility] Comment on above: Order Comment: Speci men Type: BLOOD SPECIMENOrdering Facility: [facility] Address: [address] [place] [address] Performed By: #### 2 4331-1, 3015-3, ####[facility] [id number] [place] [address] [place] Lipid 1996 panelon 4 Cholesterol [Mass/Vol] 169 mg/dL Normal <200 [facility] Comment on above: Order Comment: Speci men Type: BLOOD SPECIMENOrdering Facility: [facility] Address: [address] [place] [address] Result Comment: <200 mg/dL, Desirable 200-239 mg/dL, Borderline high >239 mg/dL, High Performed By: #### 2 4331-1, 3, ####[facility] [id number] [place] [address] [place] Cholesterol in HDL [Mass/Vol] 39 mg/dL Low >39 [facility] Comment on above: Order Comment: Speci men Type: BLOOD SPECIMENOrdering Facility: [facility] Address: [address] [place] [address] Result Comment: 40-5 9 mg/dL, Acceptable >59 mg/dL, High: Negative risk factor for coronary heart disease <40 mg/dL, Low: Positive risk factor for coronary heart disease Performed By: #### 2 4331-1, 3015-3, ####[facility] [id number] [place] [address] [place] Cholesterol in LDL [Mass/Vol] 108 mg/dL High <100 [facility] Comment on above: Order Comment: Speci men Type: BLOOD SPECIMENOrdering Facility: [facility] Address: [address] [place] [address] Result Comment: <100 mg/dL, Optimal 100-129 mg/dL, Near optimal/above optimal 130-159 mg/dL, Borderline high 160-189 mg/dL, High >189 mg/dL, Very high Secondary prevention optimal LDL Cholesterol levels are recommended to be < 70 mg/dL Performed By: #### 2 4331-1, 3015-3, ####[facility] [id number] [address] [address] [place] Cholesterol in LDL/Cholesterol in HDL [Mass ratio] 2.77 {ratio} High <2.54 [facility] Comment on above: Order Comment: Speci men Type: BLOOD SPECIMENOrdering Facility: [facility] Address: [address] [place] [address] Result Comment: Earnest rivas: 1. National Cholesterol Education Program ATP III Guideline At-A-Glance Quick Desk Reference: National Heart, Lung, and Blood [place]. National Institutes of Health. 2001: NIH Publication No. 01-3305. 2. An International Atherosclerosis Society position paper: global recommendations for the management of dyslipidemia: executive summary, Atherosclerosis. 2014: 232(2):410-413. Performed By: #### 2 4331-1, 3015-3, ####[facility]CL[facility] [id number] [place] [id number] [place] Cholesterol in VLDL [Mass/Vol] 22 mg/dL Normal <30 [facility] Comment on above: Order Comment: Speci men Type: BLOOD SPECIMENOrdering Facility: [facility] Address: [address] [place] [address] Performed By: #### 2 4331-1, 3015-3, ####[facility] LABIA [id number] [address] [address] [place] Cholesterol non HDL [Mass/Vol] 130 mg/dL High <130 [facility] Comment on above: Order Comment: Speci men Type: BLOOD SPECIMENOrdering Facility: [facility] Address: [address] [place] [address] Result Comment: <130 mg/dL, Optimal 130-159 mg/dL, Near optimal/above optimal 160-189 mg/dL, Borderline high 190-219 mg/dL, High >219 mg/dL, Very high Secondary prevention optimal non HDL Cholesterol levels are recommended to be <100 mg/dL Performed By: #### 2 4331-1, 3016-01, ####[facility] [id number] [facility] [address] [address] [place] Cholesterol.total/Ch olesterol in HDL [Mass ratio] 4.33 {ratio} Normal <5.10 [facility] Comment on above: Order Comment: Speci men Type: BLOOD SPECIMENOrdering Facility: [facility] Address: [address] [place] [address] Performed By: #### 2 4331-1, 3016-01, ####[facility] [id number] [place] [address] [place] FASTING TIME 15 hrs Normal [facility] Comment on above: Order Comment: Speci men Type: BLOOD SPECIMENOrdering Facility: [facility] Address: [address] [place] [address] Performed By: #### 2 4331-1, 3016-01, ####[facility]CLIA [id number] [place] [address] [place] Triglyceride [Mass/Vol] 109 mg/dL Normal <150 [facility] Comment on above: Order Comment: Speci men Type: BLOOD SPECIMENOrdering Facility: [facility] Address: [address] [place] [address] Result Comment: <150 mg/dL, Normal 150-199 mg/dL, Borderline high 200-499 mg/dL, High >499 mg/dL, Very high Performed By: #### 2 4331-1, 3016-01, ####[facility] [id number] [address] [address] [place] TSH SerPl-aCncon 07-29-2024 TSH Qn 3.140 m[IU]/L Normal 0.270-4.200 [facility] Comment on above: Order Comment: Speci men Type: BLOOD SPECIMENOrdering Facility: [facility] Address: [address] [place] [address] Performed By: #### 2 4331-1, 3016-3, 97378-0 ####[facility] [id number] [address] [place] levETIRAcetam SerPl-mCncon 0 07-29-2024 levETIRAcetam [Mass/Vol] 35.6 ug/mL Normal 12.0-46.0 [facility] Comment on above: Order Comment: Speci men Type: BLOOD SPECIMENOrdering Facility: [facility] Address: [address] [place] [address] Result Comment: This test is not suitable for patients receiving treatment with the drug brivaracetam (Briviact). The drug causes an interference that may lead to falsely elevated levetiracetam results. Reference ranges and high/low indicator flags are provided as general guidelines only. The treating physician must determine appropriate target levels/dosing based on the specific clinical situation. This test was developed and its performance characteristics determined by [facility] [place] ([facility]). It has not been cleared or approved by the FDA. [facility] is regulated under CLIA as qualified to perform high-complexity testing. This test is used for clinical purposes. It should not be regarded as investigational or for research. Performed By: #### 3 0471-7 ####[facility] [id number] [place] [address] [place] Reagin and Treponema pallidu m IgG and IgM [Interp]on 10-08-2023 T. pallidum IgG+IgM IA Ql (S) Non-Reactive Nonreactive [facility] SYPHILIS TOTAL W/REFLEXon Reagin and Treponema pallidum IgG and IgM [Interp] Cannot exclude recent Treponemal infection if specimen collected within 7-10 days after appearance of suspect lesions or 2-3 weeks after an exposure. Clinical correlation is required. [facility] MRI BRAIN WO IVCONon 023 [facility] XR Chest PA and Lateralon IMPRESSION: No acute radiographic abnormality. Quarter Supervisor: WAYLON Transcribe Date/Time: Sep 10 2023 3:53P Dictated by : SHIRLEY MCCORMICK MD This examination was interpreted and the report reviewed and electronically signed by: SHIRELY MCCORMICK MD on Sep 10 2023 3:54PM [facility] DIVISION OF RADIOLOGY * * *Final Report* * * DATE OF EXAM: Sep 09 2023 2:53PM WOX 5291 - XR CHEST 2V FRONTAL/LAT / PROCEDURE REASON: multiple diagnoses * * * * Physician Interpretation * * * * EXAMINATION: CHEST RADIOGRAPH (2 VIEW FRONTAL & LATERAL) CLINICAL HISTORY: Pleural effusion Acute diastolic heart failure (HCC) MQ: XC2_6 EXAM DATE/TIME: 09/09/2023 2:53 PM COMPARISON: 05/17/2022 RESULT: Lines, tubes, and devices: None. Lungs and pleura: No consolidation. No lung mass. No pleural effusion. No pneumothorax. Minimal stable atelectasis or fibrosis at both lung bases Cardiomediastinal silhouette: Normal cardiomediastinal silhouette. Bones and soft tissues: Mild wedging of several mid thoracic vertebrae. Stable. Osteopenia. DIVISION OF RADIOLOGY Provider, [facility] - 09/10/2023 * * *Final Report* * * DATE OF EXAM: Sep 09 2023 2:53PM WOX 5291 - XR CHEST 2V FRONTAL/LAT / PROCEDURE REASON: multiple diagnoses * * * * Physician Interpretation * * * * EXAMINATION: CHEST RADIOGRAPH (2 VIEW FRONTAL & LATERAL) CLINICAL HISTORY: Pleural effusion Acute diastolic heart failure (HCC) MQ: XC2_6 EXAM DATE/TIME: 09/09/2023 2:53 PM COMPARISON: 05/17/2022 RESULT: Lines, tubes, and devices: None. Lungs and pleura: No consolidation. No lung mass. No pleural effusion. No pneumothorax. Minimal stable atelectasis or fibrosis at both lung bases Cardiomediastinal silhouette: Normal cardiomediastinal silhouette. Bones and soft tissues: Mild wedging of several mid thoracic vertebrae. Stable. Osteopenia. IMPRESSION IMPRESSION: No acute radiographic abnormality. Quarter Supervisor: PSCB Transcribe Date/Time: Sep 10 2023 3:53P Dictated by : SHIRLEY MCCORMICK MD This examination was interpreted and the report reviewed and electronically signed by: SHIRLEY MCCORMICK MD on Sep 10 2023 3:54PM EST [facility] XR Chest PA and LateralOrder ed By: [facility] Provider on 09-10-2023 [facility] XR Chest PA and Lateralon Radiology Study observation (narrative) [facility] Basophil percentageOrdered B y: Lata Mitesh on 09-01-2023 Basophil percentage 3.7 mg/dL 2.5-4.9 [facility] Bilirubin [Mass/Vol] 0.40 mg/dL 0.20-1.00 [facility] Comment on above: For patients on eltr ombopag therapy, use of Dimension Miller TBIL is not recommended. Chloride [Moles/Vol] 103 mmol/L 98-107 [facility] Glucose [Mass/Vol] 111 mg/dL 74-106 [facility] Comment on above: Fasting Glucose resu lt from 100 to 125 mg/dL suggests IMPAIRED HOMEOSTASIS per A.D.A. criteria. Potassium [Moles/Vol] 3.3 mmol/L 3.5-5.1 [facility] Protein [Mass/Vol] 6.7 g/dL 6.4-8.2 [facility] Sodium [Moles/Vol] 139 mmol/L 136-145 [facility] Laboratory - Chemistry and C hemistry - challengeOrdered By: Lata Sagastume on 09-01-2023 ALP [Catalytic activity/Vol] 97 U/L 45-117 [facility] ALT [Catalytic activity/Vol] 15 U/L 16-61 [facility] CO2 [Moles/Vol] 28.0 mmol/L 21.0-32.0 [facility] Free T4 [Mass/Vol] 1.46 ng/dL 0.76-1.46 [facility] Globulin (S) [Mass/Vol] 3.8 g/dL 2.2-4.2 [facility] Magnesium [Mass/Vol] 2.0 mg/dL 1.6-2.6 [facility] Urea nitrogen/Creatinine [Mass ratio] 27.7 mg/mg - [facility] No Panel InformationOrdered By: Lata Sagastume on 09-01-2023 Estimated Creatinine Clearance Calc 63.24 ml/min [facility] Estimated GFR (MDRD) Amer 142 mL/min >60 [facility] Comment on above: GFR Calc Estimated GFR (MDRD) Non-Af Amer 117 mL/min >60 [facility] Comment on above: Non- GFR Calc Thyroid Stimulating Hormone (TSH) 3.78 uIU/mL 0.358-3.74 [facility] Serum or plasma albumin ladan urement (mass/volume)Ordered By: Lata Sagastume on 09-01-2023 Albumin [Mass/Vol] 2.9 g/dL 3.2-5.0 [facility] Serum or plasma albumin/glob ulin mass ratioOrdered By: Lata Sagastume on 09-01-2023 Albumin/Globulin [Mass ratio] 0.8 {ratio} 0.9-2.4 [facility] Serum or plasma calcium ladan urement (mass/volume)Ordered By: Lata Sagastume on 09-01-2023 Calcium [Mass/Vol] 8.8 mg/dL 8.5-10.1 [facility] Serum or plasma creatinine m easurement (mass/volume)Ordered By: Lata Sagastume on 09-01-2023 Creatinine [Mass/Vol] 0.69 mg/dL 0.70-1.30 [facility] Comment on above: The validity of the calculated GFR & GFRAA in patients over 70 years has not been determined. Clinical correlation is essential. Serum or plasma urea nitroge n measurement (mass/volume)Ordered By: Lata Sagastume on 09-01-2023 Urea nitrogen [Mass/Vol] 19 mg/dL 7-18 [facility] Thin prep Papanicolaou smear with manual screeningOrdered By: Lata Sagastume on 09-01-2023 Thin prep Papanicolaou smear with manual screening 16 U/L 15-37 [facility] Thin prep Papanicolaou smear with manual screening 8 5-15 [facility] Absolute lymphocyte countOrd ered By: Yonatan Morrissey on 08-31-2023 Lymphocytes Auto (Unsp spec) [#/Vol] 1.03 10*3/uL 0.83-4.51 [facility] Basophil percentageOrdered B y: Yonatan Morrissey on 08-31-2023 Basophils/100 WBC (Bld) 0.4 % 0-1 [facility] Eosinophils/100 WBC (Bld) 1.5 % 0-5 [facility] Neutrophils (Bld) [#/Vol] 4.5 10*3/uL 2.0-7.7 [facility] Neutrophils/100 WBC (Bld) 65.6 % 47-70 [facility] WBC (Bld) [#/Vol] 6.9 10*3/uL 4.4-11.0 [facility] Blood erythrocytes count (nu mber/volume)Ordered By: Yonatan Morrissey on 08-31-2023 RBC (Bld) [#/Vol] 4.71 10*6/uL 4.6-6.2 [facility] Blood hemoglobin measurement (mass/volume)Ordered By: Yonatan Morrissey on 08-31-2023 Hemoglobin (Bld) [Mass/Vol] 14.5 g/dL 13.0-16.5 [facility] Blood lymphocytes/100 leukoc ytesOrdered By: Yonatan Morrissey on 08-31-2023 Lymphocytes/100 WBC (Bld) 15.0 % 19-41 [facility] Blood monocytes/100 leukocyt esOrdered By: Yonatan Morrissey on 08-31-2023 Monocytes/100 WBC (Bld) 17.2 % 0-10 [facility] Blood platelet mean volumeOr dered By: Yonatan Morrissey on 08-31-2023 Platelet mean volume (Bld) [Entitic vol] 11.8 fL 6.2-12.0 [facility] Determination of erythrocyte mean corpuscular volume (MCV)Ordered By: Yonatan Morrissey on 08-31-2023 MCV (RBC) [Entitic vol] 97.2 fL 80-94 [facility] Hematocrit Auto (Bld) [Volum e fraction]Ordered By: Yonatan Morrissey on 08-31-2023 Hematocrit (Bld) [Volume fraction] 45.8 % 40-54 [facility] Laboratory - Hematology and Cell countsOrdered By: Yonatan Morrissey on 08-31-2023 Erythrocyte distribution width (RBC) [Entitic vol] 47.7 fL 35.1-43.9 [facility] Erythrocyte distribution width (RBC) [Ratio] 13.4 % 11.6-14.6 [facility] Immature granulocytes/100 WBC (Bld) 0.300 % 0.0-0.9 [facility] Comment on above: IG% - Immature Granu locytes (promyelocytes, myelocytes and metamyelocytes) > 1% indicates that a LEFT SHIFT is Present. MCH (RBC) [Entitic mass] 30.8 pg 27.0-32.0 [facility] Nucleated RBC/100 WBC (Bld) [Ratio] 0 % 0-5 [facility] MCHC Auto (RBC) [Mass/Vol]Or dered By: Yonatan Morrissey on 08-31-2023 MCHC (RBC) [Mass/Vol] 31.7 g/dL 32-36 [facility] Platelets bldOrdered By: Mich Morrissey on 08-31-2023 Platelets (Bld) [#/Vol] 238 10*3/uL 150-450 [facility] Respiratory pathogens detect ion panel by molecular detection methodOrdered By: Lata Sagastume on 08-31-2023 Respiratory pathogens DNA and RNA panel GERMAN+probe (Resp) [facility] Laboratory - Chemistry and C hemistry - challengeOrdered By: Jozef Grant on 08-30-2023 Natriuretic peptide B (Bld) [Mass/Vol] 185.5 pg/mL 0-100 [facility] No Panel InformationOrdered By: Yonatan Morrissey on 08-30-2023 Troponin I High Sensitivity 108 pg/mL 3.0-78.0 [facility] Comment on above: Please Note: New Jodie t Units and Gender Specific Reference Ranges. For more information see Policy Stat Procedure Miller High Sensitivity Troponin (TNIH) and attachments. Absolute lymphocyte countOrd ered By: Montserrat Berkowitz on 08-24-2023 Lymphocytes Auto (Unsp spec) [#/Vol] 1.13 10*3/uL 0.83-4.51 [facility] Basophil percentageOrdered B y: Montserrat Berkowitz on 08-24-2023 Basophils/100 WBC (Bld) 0.4 % 0-1 [facility] Chloride [Moles/Vol] 104 mmol/L 98-107 [facility] Eosinophils/100 WBC (Bld) 1.4 % 0-5 [facility] Glucose [Mass/Vol] 99 mg/dL 74-106 [facility] Neutrophils (Bld) [#/Vol] 5.9 10*3/uL 2.0-7.7 [facility] Neutrophils/100 WBC (Bld) 69.5 % 47-70 [facility] Potassium [Moles/Vol] 3.5 mmol/L 3.5-5.1 [facility] Sodium [Moles/Vol] 138 mmol/L 136-145 [facility] WBC (Bld) [#/Vol] 8.4 10*3/uL 4.4-11.0 [facility] Blood erythrocytes count (nu mber/volume)Ordered By: Montserrat Berkowitz on 08-24-2023 RBC (Bld) [#/Vol] 4.77 10*6/uL 4.6-6.2 [facility] Blood hemoglobin measurement (mass/volume)Ordered By: Montserrat Berkowitz on 08-24-2023 Hemoglobin (Bld) [Mass/Vol] 14.8 g/dL 13.0-16.5 [facility] Blood lymphocytes/100 leukoc ytesOrdered By: Montserrat Berkowitz on 08-24-2023 Lymphocytes/100 WBC (Bld) 13.4 % 19-41 [facility] Blood monocytes/100 leukocyt esOrdered By: Montserrat Berkowitz on 08-24-2023 Monocytes/100 WBC (Bld) 14.9 % 0-10 [facility] Blood platelet mean volumeOr dered By: Montserrat Berkowitz on 08-24-2023 Platelet mean volume (Bld) [Entitic vol] 11.2 fL 6.2-12.0 [facility] Determination of erythrocyte mean corpuscular volume (MCV)Ordered By: Montserrat Berkowitz on 08-24-2023 MCV (RBC) [Entitic vol] 96.6 fL 80-94 [facility] Hematocrit Auto (Bld) [Volum e fraction]Ordered By: Montserrat Berkowitz on 08-24-2023 Hematocrit (Bld) [Volume fraction] 46.1 % 40-54 [facility] Laboratory - Chemistry and C hemistry - challengeOrdered By: Montserrat Berkowitz on 08-24-2023 CO2 [Moles/Vol] 28.0 mmol/L 21.0-32.0 [facility] Natriuretic peptide B (Bld) [Mass/Vol] 181.6 pg/mL 0-100 [facility] Urea nitrogen/Creatinine [Mass ratio] 18.9 mg/mg 10-20 [facility] Laboratory - Hematology and Cell countsOrdered By: Montserrat Berkowitz on 08-24-2023 Erythrocyte distribution width (RBC) [Entitic vol] 46.6 fL 35.1-43.9 [facility] Erythrocyte distribution width (RBC) [Ratio] 13.1 % 11.6-14.6 [facility] Immature granulocytes/100 WBC (Bld) 0.400 % 0.0-0.9 [facility] Comment on above: IG% - Immature Granu locytes (promyelocytes, myelocytes and metamyelocytes) > 1% indicates that a LEFT SHIFT is Present. MCH (RBC) [Entitic mass] 31.0 pg 27.0-32.0 [facility] Nucleated RBC/100 WBC (Bld) [Ratio] 0 % 0-5 [facility] MCHC Auto (RBC) [Mass/Vol]Or dered By: Montserrat Berkowitz on 08-24-2023 MCHC (RBC) [Mass/Vol] 32.1 g/dL 32-36 [facility] No Panel InformationOrdered By: Montserrat Berkowitz on 08-24-2023 Estimated GFR (MDRD) Amer 130 mL/min >60 [facility] Comment on above: GFR Calc Estimated GFR (MDRD) Non-Af Amer 108 mL/min >60 [facility] Comment on above: Non- GFR Calc Platelets bldOrdered By: Arlin Berkowitz on 08-24-2023 Platelets (Bld) [#/Vol] 265 10*3/uL 150-450 [facility] Serum or plasma calcium ladan urement (mass/volume)Ordered By: Montserrat Berkowitz on 08-24-2023 Calcium [Mass/Vol] 8.9 mg/dL 8.5-10.1 [facility] Serum or plasma creatinine m easurement (mass/volume)Ordered By: Montserrat Berkowitz on 08-24-2023 Creatinine [Mass/Vol] 0.74 mg/dL 0.70-1.30 [facility] Comment on above: The validity of the calculated GFR & GFRAA in patients over 70 years has not been determined. Clinical correlation is essential. Serum or plasma urea nitroge n measurement (mass/volume)Ordered By: Montserrat Berkowitz on 08-24-2023 Urea nitrogen [Mass/Vol] 14 mg/dL - [facility] Thin prep Papanicolaou smear with manual screeningOrdered By: Montserrat Berkowitz on 08-24-2023 Thin prep Papanicolaou smear with manual screening 6 04-01 [facility] CBC W Auto Differential pane l (Bld)on 08-06-2023 Basophils (Bld) [#/Vol] 0.03 10*3/uL <0.11 k/uL [facility] Basophils/100 WBC (Bld) 0.4 % [facility] Differential cell count method Nom (Bld) Auto [facility] Eosinophils (Bld) [#/Vol] 0.09 10*3/uL <0.46 k/uL [facility] Eosinophils/100 WBC (Bld) 1.2 % [facility] Erythrocyte distribution width (RBC) [Ratio] 13.1 % 11.5 - 15.0 % [facility] Hematocrit (Bld) [Volume fraction] 48.8 % 39.0 - 51.0 % [facility] Hemoglobin (Bld) [Mass/Vol] 15.8 g/dL 13.0 - 17.0 g/dL [facility] Immature granulocytes (Bld) [#/Vol] 0.03 10*3/uL <0.10 k/uL [facility] Immature granulocytes/100 WBC (Bld) 0.4 % [facility] Lymphocytes (Bld) [#/Vol] 1.32 10*3/uL 1.00 - 4.00 k/uL [facility] Lymphocytes/100 WBC (Bld) 17.5 % [facility] MCH (RBC) [Entitic mass] 31.8 pg 26.0 - 34.0 pg [facility] MCHC (RBC) [Mass/Vol] 32.4 g/dL 30.5 - 36.0 g/dL [facility] MCV (RBC) [Entitic vol] 98.2 fL 80.0 - 100.0 fL [facility] Monocytes (Bld) [#/Vol] 1.14 10*3/uL High <0.87 k/uL [facility] Monocytes/100 WBC (Bld) 15.1 % [facility] Neutrophils (Bld) [#/Vol] 4.92 10*3/uL 1.45 - 7.50 k/uL [facility] Neutrophils/100 WBC (Bld) 65.4 % [facility] Nucleated RBC (Bld) [#/Vol] <0.01 k/uL [facility] Nucleated RBC/100 WBC (Bld) [Ratio] 0.0 /100 WBC [facility] Platelet mean volume (Bld) [Entitic vol] 11.8 fL 9.0 - 12.7 fL [facility] Platelets (Bld) [#/Vol] 271 10*3/uL 150 - 400 k/uL [facility] RBC (Bld) [#/Vol] 4.97 10*6/uL 4.20 - 6.0 0 m/uL [facility] WBC (Bld) [#/Vol] 7.53 10*3/uL 3.70 - 11. 00 k/uL [facility] Absolute lymphocyte counton 09-23-2022 Lymphocytes Auto (Unsp spec) [#/Vol] 1.18 10*3/uL 0.83-4.51 [facility] Work Phone: Basophil percentageon 2021 Basophils/100 WBC (Bld) 0.3 % 0-1 [facility] Work Phone: Chloride [Moles/Vol] 104 mmol/L 98-107 [facility] Work Phone: Eosinophils/100 WBC (Bld) 3.4 % 0-5 [facility] Work Phone: Glucose [Mass/Vol] 100 mg/dL 74-106 [facility] Work Phone: Comment on above: Fasting Glucose resu lt from 100 to 125 mg/dL suggests IMPAIRED HOMEOSTASIS per A.D.A. criteria. Neutrophils (Bld) [#/Vol] 4.3 10*3/uL 2.0-7.7 [facility] Work Phone: Neutrophils/100 WBC (Bld) 60.2 % 47-70 [facility] Work Phone: Potassium [Moles/Vol] 3.8 mmol/L 3.5-5.1 [facility] Work Phone: Sodium [Moles/Vol] 139 mmol/L 136-145 [facility] Work Phone: WBC (Bld) [#/Vol] 7.2 10*3/uL 4.4-11.0 [facility] Work Phone: Blood erythrocytes count (nu mber/volume)on 09-23-2022 RBC (Bld) [#/Vol] 4.50 10*6/uL 4.6-6.2 [facility] Work Phone: Blood hemoglobin measurement (mass/volume)on 09-23-2022 Hemoglobin (Bld) [Mass/Vol] 14.0 g/dL 13.0-16.5 [facility] Work Phone: Blood lymphocytes/100 leukoc yteson 09-23-2022 Lymphocytes/100 WBC (Bld) 16.5 % 19-41 [facility] Work Phone: Blood monocytes/100 leukocyt eson 09-23-2022 Monocytes/100 WBC (Bld) 19.2 % 0-10 [facility] Work Phone: Blood platelet mean volumeon 09-23-2022 Platelet mean volume (Bld) [Entitic vol] 12.0 fL 6.2-12.0 [facility] Work Phone: Determination of erythrocyte mean corpuscular volume (MCV)on 09-23-2022 MCV (RBC) [Entitic vol] 96.9 fL 80-94 [facility] Work Phone: Hematocrit Auto (Bld) [Volum e fraction]on 09-23-2022 Hematocrit (Bld) [Volume fraction] 43.6 % 40-54 [facility] Work Phone: Laboratory - Chemistry and C hemistry - challengeon 09-23-2022 CO2 [Moles/Vol] 29.0 mmol/L 21.0-32.0 [facility] Work Phone: Urea nitrogen/Creatinine [Mass ratio] 15.1 mg/mg 10-20 [facility] Work Phone: Laboratory - Hematology and Cell countson 09-23-2022 Erythrocyte distribution width (RBC) [Entitic vol] 46.5 fL 35.1-43.9 [facility] Work Phone: Erythrocyte distribution width (RBC) [Ratio] 13.2 % 11.6-14.6 [facility] Work Phone: Immature granulocytes/100 WBC (Bld) 0.400 % 0.0-0.9 [facility] Work Phone: Comment on above: IG% - Immature Granu locytes (promyelocytes, myelocytes and metamyelocytes) > 1% indicates that a LEFT SHIFT is Present. MCH (RBC) [Entitic mass] 31.1 pg 27.0-32.0 [facility] Work Phone: Nucleated RBC/100 WBC (Bld) [Ratio] 0 % 0-5 [facility] Work Phone: MCHC Auto (RBC) [Mass/Vol]on 09-23-2022 MCHC (RBC) [Mass/Vol] 32.1 g/dL 32-36 [facility] Work Phone: No Panel Informationon 09-23 Estimated Creatinine Clearance Calc 73.94 ml/min [facility] Work Phone: Estimated GFR (MDRD) Amer 110 mL/min >60 [facility] Work Phone: Comment on above: GFR Calc Estimated GFR (MDRD) Non-Af Amer 91 mL/min >60 [facility] Work Phone: Comment on above: Non- GFR Calc Troponin I High Sensitivity 152 pg/mL 3.0-78.0 [facility] Work Phone: Comment on above: Critical Result(s) C alled at: 17:28:11 09/23/2022 by: N[facility]. Results read back by same. Please Note: New Test Units and Gender Specific Reference Ranges. For more information see Policy Stat Procedure Miller High Sensitivity Troponin (TNIH) and attachments. Platelets bldon 09-23-2022 Platelets (Bld) [#/Vol] 210 10*3/uL 150-450 [facility] Work Phone: Serum or plasma calcium ladan urement (mass/volume)on 09-23-2022 Calcium [Mass/Vol] 8.9 mg/dL 8.5-10.1 [facility] Work Phone: Serum or plasma creatinine m easurement (mass/volume)on 09-23-2022 Creatinine [Mass/Vol] 0.86 mg/dL 0.70-1.30 [facility] Work Phone: Comment on above: The validity of the calculated GFR & GFRAA in patients over 70 years has not been determined. Clinical correlation is essential. Serum or plasma urea nitroge n measurement (mass/volume)on 09-23-2022 Urea nitrogen [Mass/Vol] 13 mg/dL 7-18 [facility] Work Phone: Thin prep Papanicolaou smear with manual screeningon 09-23-2022 Thin prep Papanicolaou smear with manual screening 6 5-15 [facility] Work Phone: XR Lumbar spine 3 Viewson IMPRESSION: Findings as described above. Quarter Supervisor: WAYLON Transcribe Date/Time: Aug 10 2022 5:24P Dictated by : HE MCNULTY MD This examination was interpreted and the report reviewed and electronically signed by: HE MCNULTY MD on Aug 10 2022 5:25PM [facility] DIVISION OF RADIOLOGY * * *Final Report* * * DATE OF EXAM: Aug 09 2022 5:42PM WOX 5228 - XR LUMBAR 3V AP/LAT/L5-S1 / PROCEDURE REASON: multiple diagnoses * * * * Physician Interpretation * * * * EXAM TITLE: XR LUMBAR 3V AP/LAT/L5-S1 EXAM DATE/TIME: 08/09/2022 5:42 PM COMPARISON: None. CLINICAL INDICATION/HISTORY: Leg weakness. TECHNIQUE: AP, lateral and cone down lateral views of the lumbar spine are presented. FINDINGS: There are five uxx-nvw-ktrfsbr lumbar vertebrae. Mild left-sided stricture seen on AP view. L2 and L3 vertebral body compression deformities/age indeterminate fractures visualized, involving the superior endplates. No subluxation The disc spaces are well preserved. There is significant osteophyte formation. The bones are severely osteopenic. Kissing spine seen on lateral view. DIVISION OF RADIOLOGY Provider, Veronica Sous[facility] - 08/10/2022 * * *Final Report* * * DATE OF EXAM: Aug 09 2022 5:42PM WOX 5228 - XR LUMBAR 3V AP/LAT/L5-S1 / PROCEDURE REASON: multiple diagnoses * * * * Physician Interpretation * * * * EXAM TITLE: XR LUMBAR 3V AP/LAT/L5-S1 EXAM DATE/TIME: 08/09/2022 5:42 PM COMPARISON: None. CLINICAL INDICATION/HISTORY: Leg weakness. TECHNIQUE: AP, lateral and cone down lateral views of the lumbar spine are presented. FINDINGS: There are five dqk-iyy-wxxnmjr lumbar vertebrae. Mild left-sided stricture seen on AP view. L2 and L3 vertebral body compression deformities/age indeterminate fractures visualized, involving the superior endplates. No subluxation The disc spaces are well preserved. There is significant osteophyte formation. The bones are severely osteopenic. Kissing spine seen on lateral view. IMPRESSION IMPRESSION: Findings as described above. Quarter Supervisor: PSCB Transcribe Date/Time: Aug 10 2022 5:24P Dictated by : HE MCNULTY MD This examination was interpreted and the report reviewed and electronically signed by: HE MCNULTY MD on Aug 10 2022 5:25PM [facility] XR Lumbar spine 3 ViewsOrder ed By: Ccf Provider on 08-10-2022 [facility] XR Lumbar spine 3 Viewson Radiology Study observation (narrative) [facility] XR CHEST 2V FRONTAL/LATon [facility] XR Chest PA and Lateralon IMPRESSION: Minimal atelectasis or fibrosis at both lung bases Quarter Supervisor: WAYLON Transcribe Date/Time: May 17 2022 3:52P Dictated by : SHIRLEY MCCORMICK MD This examination was interpreted and the report reviewed and electronically signed by: SHIRLEY MCCORMICK MD on May 17 2022 3:53PM EST ZZZ_DO_NOT_ USE_DIVISIO N OF RADIOLOGY * * *Final Report* * * DATE OF EXAM: May 17 2022 3:18PM WOX 5291 - XR CHEST 2V FRONTAL/LAT / PROCEDURE REASON: Abnormal x-ray * * * * Physician Interpretation * * * * EXAMINATION: CHEST RADIOGRAPH (2 VIEW FRONTAL & LATERAL) CLINICAL HISTORY: Abnormal x-ray MQ: XC2_6 EXAM DATE/TIME: 05/17/2022 3:18 PM COMPARISON: No relevant prior studies available. RESULT: Lines, tubes, and devices: None. Lungs and pleura: No consolidation. No lung mass. No pleural effusion. No pneumothorax. Minimal atelectasis or fibrosis at both lung bases Cardiomediastinal silhouette: Normal cardiomediastinal silhouette. Bones and soft tissues: Unremarkable. ZZZ_DO_NOT_ USE_DIVISIO N OF RADIOLOGY Provider, [facility] - 05/17/2022 * * *Final Report* * * DATE OF EXAM: May 17 2022 3:18PM WOX 5291 - XR CHEST 2V FRONTAL/LAT / PROCEDURE REASON: Abnormal x-ray * * * * Physician Interpretation * * * * EXAMINATION: CHEST RADIOGRAPH (2 VIEW FRONTAL & LATERAL) CLINICAL HISTORY: Abnormal x-ray MQ: XC2_6 EXAM DATE/TIME: 05/17/2022 3:18 PM COMPARISON: No relevant prior studies available. RESULT: Lines, tubes, and devices: None. Lungs and pleura: No consolidation. No lung mass. No pleural effusion. No pneumothorax. Minimal atelectasis or fibrosis at both lung bases Cardiomediastinal silhouette: Normal cardiomediastinal silhouette. Bones and soft tissues: Unremarkable. IMPRESSION IMPRESSION: Minimal atelectasis or fibrosis at both lung bases Quarter Supervisor: WAYLON Transcribe Date/Time: May 17 2022 3:52P Dictated by : SHIRLEY MCCORMICK MD This examination was interpreted and the report reviewed and electronically signed by: SHIRLEY MCCORMICK MD on May 17 2022 3:53PM EST [facility] Radiology Study observation (narrative) [facility] XR Chest PA and LateralOrder ed By: Ccf Provider on 05-17-2022 [facility] MYCOon 05-06-2022 Mycoplasma IgG Positive Normal [facility] ([place]) Comment on above: Result Comment: INTE RPRETATION OF MYCOPLASMA BY EIA (Effective 11/23/04): Negative No detectable antibodies to M. pneumoniae. Indicates absence of current or previous infection. Positive Reactive for antibodies to M. pneumoniae. Indicates a past or recent infection. Equivocal Equivocal for antibodies to M. pneumoniae. Repeat testing by an alternate method suggested. Performed By: #### T SH, CK, ESR #### [address] [address] .Auto Diffon 04-30-2022 Basophil, Absolute 0.0 10 3/mcL Normal 0.0-0.2 [facility] ([place]) Basophils/100 WBC (Bld) 0.6 % Normal 0.0-2.5 [facility] ([place]) Eosinophil, Absolute 0.1 10 3/mcL Normal 0.0-0.4 [facility] ([place]) Eosinophils/100 WBC (Bld) 2.8 % Normal 0.0-7.0 [facility]) Lymphocyte, Absolute 0.9 10 3/mcL Normal 0.8-3.9 [facility] ([place]) Lymphocytes/100 WBC (Bld) 17.5 % Normal 10.0-50.0 [facility] ([place] Monocyte, Absolute 0.9 10 3/mcL Normal 0.2-1.0 [facility] [place] Monocytes/100 WBC (Bld) 16.9 % High 1.7-13.0 [facility] ([place] Neutrophils/100 WBC (Bld) 62.2 % Normal 37.0-80.0 [facility]) .GFRon 04-30-2022 GFR 79 ml/min/1.73sqm Normal [facility] ([place]) Comment on above: Result Comment: GFR Population mean for , Non- Americans Ages 20-29 = 116 mL/min/1.73 sq.m. Ages 30-39 = 107 mL/min/1.73 sq.m. Ages 40-49 = 99 mL/min/1.73 sq.m. Ages 50-59 = 93 mL/min/1.73 sq.m. Ages 60-69 = 85 mL/min/1.73 sq.m. Ages 70+ = 75 mL/min/1.73 sq.m. Chronic Kidney Disease: Less than 60 mL/min/1.73 square meters End Stage Renal Disease: Less than 15 mL/min/1.73 square meters Performed By: #### T SH, CK, ESR #### [address] [address] GFR Non- 65 ml/min/1.73sqm Normal [facility] ([place]) Comment on above: Result Comment: GFR Population mean for , Non- Americans Ages 20-29 = 116 mL/min/1.73 sq.m. Ages 30-39 = 107 mL/min/1.73 sq.m. Ages 40-49 = 99 mL/min/1.73 sq.m. Ages 50-59 = 93 mL/min/1.73 sq.m. Ages 60-69 = 85 mL/min/1.73 sq.m. Ages 70+ = 75 mL/min/1.73 sq.m. Chronic Kidney Disease: Less than 60 mL/min/1.73 square meters End Stage Renal Disease: Less than 15 mL/min/1.73 square meters Performed By: #### T SH, CK, ESR #### [address] [address] .MDWon 04-30-2022 Monocyte Distribution Width Not performed Normal 0.00-20.00 [facility] ([place]) Comment on above: Result Comment: MDW testing performed only on adult ER patients between the ages of 18-89 years. .NEUABSon 04-30-2022 Neutrophil, Absolute 3.3 10 3/mcL Normal 2.9-6.2 [facility]) CBCon 04-30-2022 Erythrocyte distribution width (RBC) [Ratio] 13.9 % Normal 11.5-14.5 [facility]) Hematocrit (Bld) [Volume fraction] 38.1 % Low 42.0-52.0 [facility]) Hgb 12.8 G/dL Low 14.0-18.0 [facility]) MCH (RBC) [Entitic mass] 31.2 pg Normal 27.0-31.2 [facility]) MCHC 33.7 G/dL Normal 31.8-35.4 [facility]) MCV (RBC) [Entitic vol] 92.6 fL Normal 80.0-94.0 [facility]) Platelet 199 10 3/mcL Normal 130-400 [facility]) Platelet mean volume (Bld) [Entitic vol] 9.3 fL Normal 7.4-10.4 [facility]) RBC 4.12 10 6/mcL Normal 4.04-6.13 [facility]) WBC 5.3 10 3/mcL Normal 4.6-10.8 [facility]) CMPon 04-30-2022 Albumin Level 2.7 G/dL Low 3.4-4.8 [facility]) Comment on above: Performed By: #### T AARON CK, ESR #### [address] [address] Albumin/Globulin [Mass ratio] 0.9 {ratio} Low 1.1-2.5 [facility]) Comment on above: Performed By: #### T AARON CK, ESR #### [address] [address] ALP [Catalytic activity/Vol] 77 U/L Normal 40-135 [facility]) Comment on above: Performed By: #### T AARON CK, ESR #### [address] [address] ALT [Catalytic activity/Vol] 29 U/L Normal 16-63 [facility] ([place]) Comment on above: Performed By: #### T HALLEY WALKER, ESR #### [address] [address] AST [Catalytic activity/Vol] 19 U/L Normal 10-40 [facility] ([place]) Comment on above: Performed By: #### T AARON CK, ESR #### [address] [address] Bili Total 0.3 mg/dL Normal 0.2-1.0 [facility] ([place]) Comment on above: Result Comment: Use of this assay is not recommended for patients undergoing treatment with eltrombopag due to the potential for falsely elevated results. Performed By: #### T HALLEY WALKER, ESR #### [address] [address] BUN/Creatinine Ratio 7 ratio Normal 7-27 [facility] ([place]) Comment on above: Performed By: #### T HALLEY WALKER, ESR #### [address] [address] Calcium [Mass/Vol] 8.7 mg/dL Normal 8.4-10.2 [facility] ([place]) Comment on above: Performed By: #### T HALLEY WALKER, ESR #### [address] [address] Chloride [Moles/Vol] 107 mmol/L Normal 98-107 [facility] ([place]) Comment on above: Performed By: #### T AARON CK, ESR #### [address] [address] CO2 [Moles/Vol] 30 mmol/L Normal 23-31 [facility] ([place]) Comment on above: Performed By: #### T AARON CK, ESR #### [address] [address] Creatinine [Mass/Vol] 1.09 mg/dL Normal 0.70-1.30 [facility] ([place]) Comment on above: Performed By: #### T AARON CK, ESR #### [address] [address] Electrolyte Balance 4.0 mEq/L Normal 4.0-15.0 [facility] ([place]) Comment on above: Performed By: #### T HALLEY WALKER, ESR #### [address] [address] Globulin 3.0 G/dL Normal [facility] ([place] Comment on above: Performed By: #### HALLEY PEREZ, ESR #### [address] [address] Glucose [Mass/Vol] 112 mg/dL High 83-110 [facility] ([place] Comment on above: Performed By: #### HALLEY PEREZ, ESR #### [address] [address] Potassium [Moles/Vol] 4.1 mmol/L Normal 3.5-5.1 [facility] ([place] Comment on above: Performed By: #### HALLEY PEREZ, ESR #### [address] [address] Sodium [Moles/Vol] 141 mmol/L Normal 136-145 [facility] ([place] Comment on above: Performed By: #### HALLEY PEREZ, ESR #### [address] [address] Total Protein 5.7 G/dL Low 6.4-8.2 [facility] ([place] Comment on above: Performed By: #### HALLEY PEREZ, ESR #### [address] [address] Urea nitrogen [Mass/Vol] 8 mg/dL Normal 7-18 [facility] ([place] Comment on above: Performed By: #### HALLEY PEREZ, ESR #### [place] [address] [address] MGon 04-30-2022 Magnesium [Mass/Vol] 2.2 mg/dL Normal 1.8-2.4 [facility] ([place]) Comment on above: Performed By: #### HALLEY PEREZ, ESR #### [address] [address] MYCOon 04-30-2022 Mycoplasma IgM Negative Normal [facility] ([place]) Comment on above: Result Comment: INTE RPRETATION OF MYCOPLASMA BY EIA (Effective 11/23/04): Negative No detectable antibodies to M. pneumoniae. Indicates absence of current or previous infection. Positive Reactive for antibodies to M. pneumoniae. Indicates a past or recent infection. Equivocal Equivocal for antibodies to M. pneumoniae. Repeat testing by an alternate method suggested. Performed By: #### HALLEY PEREZ, ESR #### [address] [address] TROPHSon 04-30-2022 Troponin I High Sensitivity 75.1 ng/L Normal 0.0-76.2 [facility] ([place]) Comment on above: Performed By: #### HALLEY PEREZ, ESR #### [address] [address] .Auto Diffon 04-29-2022 Basophil, Absolute 0.1 10 3/mcL Normal 0.0-0.2 [facility] ([place]) Comment on above: Performed By: #### HALLEY PEREZ, ESR #### [address] [address] Basophils/100 WBC (Bld) 1.2 % Normal 0.0-2.5 [facility] ([place] Comment on above: Performed By: #### HALLEY PEREZ, ESR #### [address] [address] Eosinophil, Absolute 0.1 10 3/mcL Normal 0.0-0.4 [facility] ([place]) Comment on above: Performed By: #### HALLEY PEREZ, ESR #### [address] [address] Eosinophils/100 WBC (Bld) 1.9 % Normal 0.0-7.0 [facility] ([place] Comment on above: Performed By: #### HALLEY PEREZ, ESR #### [address] [address] Lymphocyte, Absolute 0.5 10 3/mcL Low 0.8-3.9 [facility] ([place]) Comment on above: Performed By: #### T AARON CK, ESR #### [address] [address] Lymphocytes/100 WBC (Bld) 8.6 % Low 10.0-50.0 [facility] ([place]) Comment on above: Performed By: #### T AARON CK, ESR #### [address] [address] Monocyte, Absolute 0.9 10 3/mcL Normal 0.2-1.0 [facility] ([place]) Comment on above: Performed By: #### T AARON CK, ESR #### [address] [address] Monocytes/100 WBC (Bld) 13.5 % High 1.7-13.0 [facility] ([place]) Comment on above: Performed By: #### Sally WALKER CK, ESR #### [address] [address] Neutrophils/100 WBC (Bld) 74.8 % Normal 37.0-80.0 [facility] ([place] Comment on above: Performed By: #### HALLEY PEREZ, ESR #### [address] [address] .GFRon 04-29-2022 GFR 105 ml/min/1.73sqm Normal [facility] ([place] Comment on above: Result Comment: GFR Population mean for , Non- Americans Ages 20-29 = 116 mL/min/1.73 sq.m. Ages 30-39 = 107 mL/min/1.73 sq.m. Ages 40-49 = 99 mL/min/1.73 sq.m. Ages 50-59 = 93 mL/min/1.73 sq.m. Ages 60-69 = 85 mL/min/1.73 sq.m. Ages 70+ = 75 mL/min/1.73 sq.m. Chronic Kidney Disease: Less than 60 mL/min/1.73 square meters End Stage Renal Disease: Less than 15 mL/min/1.73 square meters Performed By: #### T AARON CK, ESR #### [address] [address] GFR Non- 87 ml/min/1.73sqm Normal [facility] ([place]) Comment on above: Result Comment: GFR Population mean for , Non- Americans Ages 20-29 = 116 mL/min/1.73 sq.m. Ages 30-39 = 107 mL/min/1.73 sq.m. Ages 40-49 = 99 mL/min/1.73 sq.m. Ages 50-59 = 93 mL/min/1.73 sq.m. Ages 60-69 = 85 mL/min/1.73 sq.m. Ages 70+ = 75 mL/min/1.73 sq.m. Chronic Kidney Disease: Less than 60 mL/min/1.73 square meters End Stage Renal Disease: Less than 15 mL/min/1.73 square meters Performed By: #### T AARON CK, ESR #### [address] [address] .MDWon 04-29-2022 Monocyte Distribution Width Not performed Normal 0.00-20.00 [facility] ([place]) Comment on above: Result Comment: MDW testing performed only on adult ER patients between the ages of 18-89 years. Performed By: #### T AARON CK, ESR #### [address] [address] .NEUABSon 04-29-2022 Neutrophil, Absolute 4.7 10 3/mcL Normal 2.9-6.2 [facility] ([place]) Comment on above: Performed By: #### T AARON, CK, ESR #### [address] [address] .Urinalysis Microscopic (AO) on 04-29-2022 UA Amorphus Trace Normal [facility] ([place]) Comment on above: Performed By: #### T AARON, CK, ESR #### [address] [address] UA Mucous 2+ /hpf Normal [facility] ([place] Comment on above: Performed By: #### T HALLEY WALKER, ESR #### [address] [address] UA RBC None Seen Normal None Seen [facility] ([place] Comment on above: Performed By: #### T HALLEY WALKER, ESR #### [address] [address] UA Squam Epithelial None Seen Normal None Seen [facility] ([place] Comment on above: Performed By: #### T HALLEY WALKER, ESR #### [place] [id number] UA WBC 0-5 Abnormal None Seen [facility] ([place] Comment on above: Performed By: #### T HALLEY WALKER, ESR #### [place] [id number] CBCon 04-29-2022 Erythrocyte distribution width (RBC) [Ratio] 14.0 % Normal 11.5-14.5 [facility] ([place] Comment on above: Performed By: #### T HALLEY WALKER, ESR #### [place] [id number] Hematocrit (Bld) [Volume fraction] 39.8 % Low 42.0-52.0 [facility] ([place] Comment on above: Performed By: #### T HALLEY WALKER, ESR #### [place] [phone] Hgb 13.2 G/dL Low 14.0-18.0 [facility] ([place] Comment on above: Performed By: #### T HALLEY WALKER, ESR #### [address] [address] MCH (RBC) [Entitic mass] 30.9 pg Normal 27.0-31.2 [facility] ([place] Comment on above: Performed By: #### T HALLEY WALKER, ESR #### [place] [phone] MCHC 33.3 G/dL Normal 31.8-35.4 [facility] ([place] Comment on above: Performed By: #### T SH, CK, ESR #### [address] [address] MCV (RBC) [Entitic vol] 92.7 fL Normal 80.0-94.0 [facility] ([place] Comment on above: Performed By: #### T AARON CK, ESR #### [address] [address] Platelet 178 10 3/mcL Normal 130-400 [facility] ([place] Comment on above: Performed By: #### T AARON, CK, ESR #### [address] [address] Platelet mean volume (Bld) [Entitic vol] 9.2 fL Normal 7.4-10.4 [facility] ([place] Comment on above: Performed By: #### T AARON CK, ESR #### [address] [address] RBC 4.29 10 6/mcL Normal 4.04-6.13 [facility] ([place] Comment on above: Performed By: #### T AARON CK, ESR #### [address] [address] WBC 6.3 10 3/mcL Normal 4.6-10.8 [facility] ([place] Comment on above: Performed By: #### T AARON CK, ESR #### [address] [address] CKon 04-29-2022 CK [Catalytic activity/Vol] 20 U/L Low 39-308 [facility] ([place]) Comment on above: Performed By: #### T AARON CK, ESR #### [address] [address] CMPon 04-29-2022 Albumin Level 2.9 G/dL Low 3.4-4.8 [facility] ([place] Comment on above: Performed By: #### T AARON, CK, ESR #### [address] [address] Albumin/Globulin [Mass ratio] 0.9 {ratio} Low 1.1-2.5 [facility] ([place] Comment on above: Performed By: #### T AARON CK, ESR #### [address] [address] ALP [Catalytic activity/Vol] 81 U/L Normal 40-135 [facility] ([place]) Comment on above: Performed By: #### T AARON CK, ESR #### [address] [address] ALT [Catalytic activity/Vol] 29 U/L Normal 16-63 [facility] ([place]) Comment on above: Performed By: #### T HALLEY WALKER, ESR #### [address] [address] AST [Catalytic activity/Vol] 18 U/L Normal 10-40 [facility] ([place]) Comment on above: Performed By: #### T HALLEY WALKER, ESR #### [address] [address] Bili Total 0.4 mg/dL Normal 0.2-1.0 [facility] ([place]) Comment on above: Result Comment: Use of this assay is not recommended for patients undergoing treatment with eltrombopag due to the potential for falsely elevated results. Performed By: #### T HALLEY WALKER, ESR #### [address] [address] BUN/Creatinine Ratio 14 ratio Normal 7-27 [facility] ([place]) Comment on above: Performed By: #### T AARON CK, ESR #### [address] [address] Calcium [Mass/Vol] 8.7 mg/dL Normal 8.4-10.2 [facility] ([place]) Comment on above: Performed By: #### T AARON CK, ESR #### [address] [address] Chloride [Moles/Vol] 105 mmol/L Normal 98-107 [facility] ([place]) Comment on above: Performed By: #### T AARON CK, ESR #### [address] [place] [address] CO2 [Moles/Vol] 27 mmol/L Normal 23-31 [facility] ([place]) Comment on above: Performed By: #### T HALLEY WALKER, ESR #### [address] [address] Creatinine [Mass/Vol] 0.85 mg/dL Normal 0.70-1.30 [facility] ([place]) Comment on above: Performed By: #### T HALLEY WALKER, ESR #### [address] [address] Electrolyte Balance 10.0 mEq/L Normal 4.0-15.0 [facility] ([place]) Comment on above: Performed By: #### HALLEY PEREZ, ESR #### [address] [address] Globulin 3.2 G/dL Normal [facility] ([place]) Comment on above: Performed By: #### T HALLEY WALKER, ESR #### [address] [address] Glucose [Mass/Vol] 111 mg/dL High 83-110 [facility] ([place] Comment on above: Performed By: #### T HALLEY WALKER, ESR #### [address] [address] Potassium [Moles/Vol] 3.6 mmol/L Normal 3.5-5.1 [facility] ([place]) Comment on above: Performed By: #### T HALLEY WALKER, ESR #### [address] [address] Sodium [Moles/Vol] 142 mmol/L Normal 136-145 [facility] ([place] Comment on above: Performed By: #### T HALLEY WALKER, ESR #### [address] [address] Total Protein 6.1 G/dL Low 6.4-8.2 [facility] ([place]) Comment on above: Performed By: #### HALLEY PEREZ, ESR #### [address] [address] Urea nitrogen [Mass/Vol] 12 mg/dL Normal 7-18 [facility] ([place] Comment on above: Performed By: #### T AARON CK, ESR #### [place] [address] [address] ESRon 04-29-2022 Erythrocyte Sed Rate 54 mm/hr High 0-20 [facility] ([place]) Comment on above: Performed By: #### T AARON CK, ESR #### [address] [address] FT3on 04-29-2022 Free T3 [Mass/Vol] 1.86 pg/mL Low 2.30-4.00 [facility] ([place]) Comment on above: Performed By: #### F T3 #### [address] [address] FT4on 04-29-2022 Free T4 [Mass/Vol] 1.67 ng/dL High 0.76-1.46 [facility] ([place]) Comment on above: Performed By: #### F T4 #### [address] [address] MGon 04-29-2022 Magnesium [Mass/Vol] 2.0 mg/dL Normal 1.8-2.4 [facility] ([place]) Comment on above: Performed By: #### T AARON CK, ESR #### [address] [address] TROPHSon 04-29-2022 Troponin I High Sensitivity 76.3 ng/L High 0.0-76.2 [facility] ([place]) Comment on above: Performed By: #### T AARON CK, ESR #### [address] [address] TSHon 04-29-2022 TSH Qn 1.20 m[IU]/L Normal 0.36-3.74 [facility] ([place]) Comment on above: Performed By: #### T AARON, CK, ESR #### [place] [address] [address] UAon 04-29-2022 Color (U) Cristina Normal [facility] ([place] Comment on above: Performed By: #### T HALLEY WALKER, ESR #### [place] [address] [address] Glucose (U) [Mass/Vol] Negative Normal Negative [facility] ([place] Comment on above: Performed By: #### T AARON CK, ESR #### [place] [address] [address] Ketones Ql (U) Negative Normal Negative [facility] ([place]) Comment on above: Performed By: #### T HALLEY WALKER, ESR #### [place] [address] [address] UA Appear Slightly Cloudy Abnormal Clear [facility] ([place] Comment on above: Performed By: #### T AARON CK, ESR #### [place] [address] [address] UA Blood Negative Normal Negative [facility] ([place] Comment on above: Performed By: #### T AARON CK, ESR #### [place] [address] [address] UA Leuk Est Negative Normal Negative [facility] ([place] Comment on above: Performed By: #### T HALLEY WALKER, ESR #### [place] [address] [address] UA Nitrite Negative Normal Negative [facility] ([place] Comment on above: Performed By: #### T AARON CK, ESR #### [place] [address] [address] UA pH 6.0 Normal 5.0 - 8.0 [facility] ([place] Comment on above: Performed By: #### T AARON CK, ESR #### [place] [address] [address] UA Protein Trace Normal Negative [facility] ([place] Comment on above: Performed By: #### T AARON CK, ESR #### [place] [address] [address] UA Spec Grav >=1.030 Abnormal 1.015-1.025 [facility] ([place] Comment on above: Performed By: #### T SH, CK, ESR #### [facility] [address] [place], [place] [address] UA Specimen Type Void Normal [facility] ([place] Comment on above: Performed By: #### T SH, CK, ESR #### [facility] [address] [place], [place] [address] UA Urobilinogen 0.2 E.U./dL Normal 0.2-1.0 [facility] ([place]) Comment on above: Performed By: #### T SH, CK, ESR #### [place] [address] [place], [place] [address] Urobilinogen (U) [Mass/Vol] Negative Normal Negative [facility] ([place] Comment on above: Performed By: #### T SH, CK, ESR #### [address] [address] XR CHEST 2 VIEWSon 2 XR CHEST 2 VIEWS ORIGINAL EXAMINATION: TWO XRAY VIEWS OF THE CHEST 04/29/2022 10:24 am COMPARISON: Chest radiograph 04/28/2022 HISTORY: ORDERING SYSTEM PROVIDED HISTORY: Reason for Exam: left sided opacities Left-sided opacity seen on recent chest x-ray from last night FINDINGS: Cardiomediastinal contours are stable. Calcified atherosclerosis of the thoracic aorta is noted. Left lower lobe hazy and streaky opacities are similar to the prior exam. No focal consolidation. No visible pneumothorax or pleural effusion. Age indeterminate compression deformities of midthoracic vertebral levels are noted. IMPRESSION: Left lower lobe hazy and streaky opacities similar to the prior exam. Atelectasis versus developing pneumonia are considerations. Chest radiograph follow-up in 6-8 weeks is recommended to ensure clearing. Age indeterminate midthoracic compression deformities. Interpreted by: Jessica Luu Preliminary Report By: Jessica Luu Electronically signed By Jessica Luu Dictated Date: 04/29/2022 10:45:21 AM Prelim Date: 04/29/2022 10:52:51 AM Sign Date: 04/29/2022 10:52:51 AM Ordering Provider: LEIGH Hutchins [facility] ([place]) .Auto Diffon 04-28-2022 Basophil, Absolute 0.0 10 3/mcL Normal 0.0-0.2 [facility] ([place]) Comment on above: Performed By: #### T AARON CK, ESR #### [address] [address] Basophils/100 WBC (Bld) 0.3 % Normal 0.0-2.5 [facility] ([place]) Comment on above: Performed By: #### T AARON CK, ESR #### [address] [address] Eosinophil, Absolute 0.1 10 3/mcL Normal 0.0-0.4 [facility] ([place]) Comment on above: Performed By: #### T HALLEY WALKER, ESR #### [address] [address] Eosinophils/100 WBC (Bld) 1.2 % Normal 0.0-7.0 [facility] ([place] Comment on above: Performed By: #### T AARON CK, ESR #### [address] [address] Lymphocyte, Absolute 0.8 10 3/mcL Normal 0.8-3.9 [facility] ([place]) Comment on above: Performed By: #### T AARON CK, ESR #### [address] [address] Lymphocytes/100 WBC (Bld) 10.4 % Normal 10.0-50.0 [facility] ([place] Comment on above: Performed By: #### T AARON CK, ESR #### [address] [address] Monocyte, Absolute 1.1 10 3/mcL High 0.2-1.0 [facility] ([place]) Comment on above: Performed By: #### T AARON CK, ESR #### [address] [address] Monocytes/100 WBC (Bld) 15.0 % High 1.7-13.0 [facility] ([place]) Comment on above: Performed By: #### T AARON, CK, ESR #### [address] [address] Neutrophils/100 WBC (Bld) 73.1 % Normal 37.0-80.0 [facility] ([place]) Comment on above: Performed By: #### T AARON, CK, ESR #### [address] [place], [place] [address] .GFRon 04-28-2022 GFR Non- 67 ml/min/1.73sqm Normal [facility] ([place]) Comment on above: Result Comment: GFR Population mean for , Non- Americans Ages 20-29 = 116 mL/min/1.73 sq.m. Ages 30-39 = 107 mL/min/1.73 sq.m. Ages 40-49 = 99 mL/min/1.73 sq.m. Ages 50-59 = 93 mL/min/1.73 sq.m. Ages 60-69 = 85 mL/min/1.73 sq.m. Ages 70+ = 75 mL/min/1.73 sq.m. Chronic Kidney Disease: Less than 60 mL/min/1.73 square meters End Stage Renal Disease: Less than 15 mL/min/1.73 square meters Performed By: #### T AARON, CK, ESR #### [address] [address] GFR 81 ml/min/1.73sqm Normal [facility] ([place]) Comment on above: Result Comment: GFR Population mean for , Non- Americans Ages 20-29 = 116 mL/min/1.73 sq.m. Ages 30-39 = 107 mL/min/1.73 sq.m. Ages 40-49 = 99 mL/min/1.73 sq.m. Ages 50-59 = 93 mL/min/1.73 sq.m. Ages 60-69 = 85 mL/min/1.73 sq.m. Ages 70+ = 75 mL/min/1.73 sq.m. Chronic Kidney Disease: Less than 60 mL/min/1.73 square meters End Stage Renal Disease: Less than 15 mL/min/1.73 square meters Performed By: #### T HALLEY WALKER, ESR #### [address] [address] .MDWon 04-28-2022 Monocyte Distribution Width 19.08 Normal 0.00-20.00 [facility] ([place]) Comment on above: Result Comment: For ED adult patients suspected of sepsis, MDW<=20.0 does not rule out sepsis or risk of sepsis Performed By: #### T HALLEY WALKER, ESR #### [address] [address] .NEUABSon 04-28-2022 Neutrophil, Absolute 5.5 10 3/mcL Normal 2.9-6.2 [facility] ([place]) Comment on above: Performed By: #### T HALLEY WALKER, ESR #### [address] [address] BMPon 04-28-2022 BUN/Creatinine Ratio 12 ratio Normal 7-27 [facility] ([place]) Comment on above: Performed By: #### T HALLEY WALKER, ESR #### [address] [address] Calcium [Mass/Vol] 8.5 mg/dL Normal 8.4-10.2 [facility] ([place]) Comment on above: Performed By: #### HALLEY PEREZ, ESR #### [address] [address] Chloride [Moles/Vol] 105 mmol/L Normal 98-107 [facility] ([place]) Comment on above: Performed By: #### T HALLEY WALKER, ESR #### [address] [address] CO2 [Moles/Vol] 27 mmol/L Normal 23-31 [facility] ([place]) Comment on above: Performed By: #### T HALLEY WALKER, ESR #### [address] [address] Creatinine [Mass/Vol] 1.06 mg/dL Normal 0.70-1.30 [facility] ([place]) Comment on above: Performed By: #### T HALLEY WALKER, ESR #### [address] [address] Electrolyte Balance 10.0 mEq/L Normal 4.0-15.0 [facility] ([place]) Comment on above: Performed By: #### T HALLEY WALKER, ESR #### [address] [address] Glucose [Mass/Vol] 95 mg/dL Normal 83-110 [facility] ([place]) Comment on above: Performed By: #### T HALLEY WALKER, ESR #### [address] [address] Potassium [Moles/Vol] 3.9 mmol/L Normal 3.5-5.1 [facility] ([place]) Comment on above: Performed By: #### T HALLEY WALKER, ESR #### [address] [address] Sodium [Moles/Vol] 142 mmol/L Normal 136-145 [facility] ([place]) Comment on above: Performed By: #### T HALLEY WALKER, ESR #### [address] [address] Urea nitrogen [Mass/Vol] 13 mg/dL Normal 7-18 [facility] ([place]) Comment on above: Performed By: #### T HALLEY WALKER, ESR #### [address] [address] CBCon 04-28-2022 Erythrocyte distribution width (RBC) [Ratio] 14.1 % Normal 11.5-14.5 [facility] ([place]) Comment on above: Performed By: #### T HALLEY WALKER, ESR #### [address] [address] Hematocrit (Bld) [Volume fraction] 42.6 % Normal 42.0-52.0 [facility] ([place] Comment on above: Performed By: #### T HALLEY WALKER, ESR #### [address] [address] Hgb 14.3 G/dL Normal 14.0-18.0 [facility] ([place] Comment on above: Performed By: #### T AARON CK, ESR #### [address] [address] MCH (RBC) [Entitic mass] 31.3 pg High 27.0-31.2 [facility] ([place]) Comment on above: Performed By: #### T AARON CK, ESR #### [address] [address] MCHC 33.6 G/dL Normal 31.8-35.4 [facility] ([place]) Comment on above: Performed By: #### T AARON CK, ESR #### [address] [address] MCV (RBC) [Entitic vol] 93.2 fL Normal 80.0-94.0 [facility] ([place]) Comment on above: Performed By: #### T AARON CK, ESR #### [address] [address] Platelet 218 10 3/mcL Normal 130-400 [facility] ([place]) Comment on above: Performed By: #### T HALLEY WALKER, ESR #### [address] [address] Platelet mean volume (Bld) [Entitic vol] 9.4 fL Normal 7.4-10.4 [facility] ([place]) Comment on above: Performed By: #### T AARON CK, ESR #### [address] [address] RBC 4.57 10 6/mcL Normal 4.04-6.13 [facility] ([place]) Comment on above: Performed By: #### T AARON CK, ESR #### [address] [address] WBC 7.5 10 3/mcL Normal 4.6-10.8 [facility] ([place]) Comment on above: Performed By: #### T AARON CK, ESR #### [address] [address] LACon 04-28-2022 Lactic Acid Lvl 1.3 mmol/L Normal 0.4-2.0 [facility] ([place]) Comment on above: Performed By: #### T SH, CK, ESR #### [address] [address] PBNPon 04-28-2022 Natriuretic peptide B (Bld) [Mass/Vol] 260 pg/mL Normal 0-450 [facility] ([place]) Comment on above: Result Comment: NT-p roBNP results of less than 300 pg/mL effectively rules out acute congestive heart failure with 99% negative predictive value. Performed By: #### T SH, CK, ESR #### [address] [address] TROPHSon 04-28-2022 Troponin I High Sensitivity 87.8 ng/L High 0.0-76.2 [facility] ([place]) Comment on above: Performed By: #### T SH, CK, ESR #### [address] [address] XR CHEST 1 VIEWon 04-28-2022 XR CHEST 1 VIEW ORIGINAL EXAMINATION: ONE XRAY VIEW OF THE CHEST04/28/2022 6:20 pm COMPARISON: None HISTORY: ORDERING SYSTEM PROVIDED HISTORY: Reason for Exam: chest pain FINDINGS: The cardiomediastinal silhouette is within normal limits. There is hazy and streaky appearance of the left lung base. No pneumothorax or significant pleural fluid.. No acute osseous abnormalities identified. The thoracic aorta is atherosclerotic. IMPRESSION: Hazy and streaky opacities of the left lung base may be on the basis of developing pneumonia versus atelectasis. Recommend chest radiograph follow-up in 6-8 weeks to ensure clearing. I have personally reviewed the images of this examination and agree with the resident's findings and interpretation. Interpreted by: Tor Luu Preliminary Report By: Rashaad Weiss Electronically signed By Tor Luu Dictated Date: 04/28/2022 7:32:22 PM Prelim Date: 04/28/2022 7:36:58 PM Sign Date: 04/28/2022 8:02:26 PM Ordering Provider: BINDU Hutchins [facility] ([place]) Absolute lymphocyte counton 04-23-2022 Lymphocytes Auto (Unsp spec) [#/Vol] 0.91 10*3/uL 0.83-4.51 [facility] Work Phone: Basophil percentageon 2021 Basophils/100 WBC (Bld) 0.5 % 0-1 [facility] Work Phone: [phone] Bilirubin [Mass/Vol] 0.20 mg/dL 0.20-1.00 [facility] Work Phone: [phone] Comment on above: For patients on eltr ombopag therapy, use of Dimension Miller TBIL is not recommended. Chloride [Moles/Vol] 108 mmol/L 98-107 [facility] Work Phone: Eosinophils/100 WBC (Bld) 3.0 % 0-5 [facility] Work Phone: Glucose [Mass/Vol] 145 mg/dL 74-106 [facility] Work Phone: Comment on above: Fasting Glucose resu lt greater than or equal to 126 mg/dL suggests DIABETES MELLITUS per A.D.A. criteria. Neutrophils (Bld) [#/Vol] 3.6 10*3/uL 2.0-7.7 [facility] Work Phone: Neutrophils/100 WBC (Bld) 64.1 % 47-70 [facility] Work Phone: Potassium [Moles/Vol] 3.7 mmol/L 3.5-5.1 [facility] Work Phone: Protein [Mass/Vol] 6.9 g/dL 6.4-8.2 [facility] Work Phone: Sodium [Moles/Vol] 140 mmol/L 136-145 [facility] Work Phone: WBC (Bld) [#/Vol] 5.6 10*3/uL 4.4-11.0 [facility] Work Phone: Blood erythrocytes count (nu mber/volume)on 04-23-2022 RBC (Bld) [#/Vol] 4.67 10*6/uL 4.6-6.2 [facility] Work Phone: Blood hemoglobin measurement (mass/volume)on 04-23-2022 Hemoglobin (Bld) [Mass/Vol] 14.5 g/dL 13.0-16.5 [facility] Work Phone: Blood lymphocytes/100 leukoc yteson 04-23-2022 Lymphocytes/100 WBC (Bld) 16.3 % 19-41 [facility] Work Phone: Blood monocytes/100 leukocyt eson 04-23-2022 Monocytes/100 WBC (Bld) 15.7 % 0-10 [facility] Work Phone: Blood platelet mean volumeon 04-23-2022 Platelet mean volume (Bld) [Entitic vol] 11.0 fL 6.2-12.0 [facility] Work Phone: Determination of erythrocyte mean corpuscular volume (MCV)on 04-23-2022 MCV (RBC) [Entitic vol] 95.9 fL 80-94 [facility] Work Phone: Hematocrit Auto (Bld) [Volum e fraction]on 04-23-2022 Hematocrit (Bld) [Volume fraction] 44.8 % 40-54 [facility] Work Phone: Laboratory - Chemistry and C hemistry - challengeon 04-23-2022 ALP [Catalytic activity/Vol] 91 U/L 45-117 [facility] Work Phone: ALT [Catalytic activity/Vol] 41 U/L 16-61 [facility] Work Phone: [phone] CO2 [Moles/Vol] 28.0 mmol/L 21.0-32.0 [facility] Work Phone: Globulin (S) [Mass/Vol] 3.6 g/dL 2.2-4.2 [facility] Work Phone: [phone] Magnesium [Mass/Vol] 1.8 mg/dL 1.6-2.6 [facility] Work Phone: Urea nitrogen/Creatinine [Mass ratio] 12.9 mg/mg 10-20 [facility] Work Phone: Laboratory - Hematology and Cell countson 04-23-2022 Erythrocyte distribution width (RBC) [Entitic vol] 44.3 fL 35.1-43.9 [facility] Work Phone: Erythrocyte distribution width (RBC) [Ratio] 12.7 % 11.6-14.6 [facility] Work Phone: Immature granulocytes/100 WBC (Bld) 0.400 % 0.0-0.9 [facility] Work Phone: Comment on above: IG% - Immature Granu locytes (promyelocytes, myelocytes and metamyelocytes) > 1% indicates that a LEFT SHIFT is Present. MCH (RBC) [Entitic mass] 31.0 pg 27.0-32.0 [facility] Work Phone: Nucleated RBC/100 WBC (Bld) [Ratio] 0 % 0-5 [facility] Work Phone: MCHC Auto (RBC) [Mass/Vol]on 04-23-2022 MCHC (RBC) [Mass/Vol] 32.4 g/dL 32-36 [facility] Work Phone: No Panel Informationon 04-23 Troponin I High Sensitivity 193 pg/mL 3.0-78.0 [facility] Work Phone: Comment on above: Critical Result(s) C alled at: 02:56:49 04/23/2022 by: Remington Cortes TO Tarsha YOUNG RN (ED) Results read back by same. Please Note: New Test Units and Gender Specific Reference Ranges. For more information see Policy Stat Procedure Miller High Sensitivity Troponin (TNIH) and attachments. Estimated Creatinine Clearance Calc 69.53 ml/min [facility] Work Phone: Estimated GFR (MDRD) Amer 100 mL/min >60 [facility] Work Phone: Comment on above: GFR Calc Estimated GFR (MDRD) Non-Af Amer 83 mL/min >60 [facility] Work Phone: Comment on above: Non- GFR Calc Thyroid Stimulating Hormone (TSH) 3.51 uIU/mL 0.358-3.74 [facility] Work Phone: Platelets bldon 04-23-2022 Platelets (Bld) [#/Vol] 167 10*3/uL 150-450 [facility] Work Phone: Serum or plasma albumin ladan urement (mass/volume)on 04-23-2022 Albumin [Mass/Vol] 3.3 g/dL 3.2-5.0 [facility] Work Phone: Serum or plasma albumin/glob ulin mass ratioon 04-23-2022 Albumin/Globulin [Mass ratio] 0.9 {ratio} 0.9-2.4 [facility] Work Phone: Serum or plasma calcium ladan urement (mass/volume)on 04-23-2022 Calcium [Mass/Vol] 8.7 mg/dL 8.5-10.1 [facility] Work Phone: Serum or plasma creatinine m easurement (mass/volume)on 04-23-2022 Creatinine [Mass/Vol] 0.93 mg/dL 0.70-1.30 [facility] Work Phone: Comment on above: The validity of the calculated GFR & GFRAA in patients over 70 years has not been determined. Clinical correlation is essential. Serum or plasma urea nitroge n measurement (mass/volume)on 04-23-2022 Urea nitrogen [Mass/Vol] 12 mg/dL 7-18 [facility] Work Phone: Thin prep Papanicolaou smear with manual screeningon 04-23-2022 Thin prep Papanicolaou smear with manual screening 25 U/L 15-37 [facility] Work Phone: Thin prep Papanicolaou smear with manual screening 4 5-15 [facility] Work Phone: Vital Signs Date Time Vital Sign Value Performing Clinician Facility 07-12-2025 13:17-0400 Body mass index (BMI) [Ratio] 18.62 kg/m2 Vu Pulido MD Work Phone: [facility] 07-12-2025 13:17-0400 Body weight 65.77 kg Vu Pulido MD Work Phone: [facility] 07-12-2025 13:17-0400 Diastolic blood pressure 62 mm[Hg] Vu Pulido MD Work Phone: [facility] 07-12-2025 13:17-0400 Heart rate 87 /min Vu Pulido MD Work Phone: [facility] 07-12-2025 13:17-0400 SaO2% (BldA) [Mass fraction] 99 % Vu Pulido MD Work Phone: [facility] 07-12-2025 13:17-0400 Systolic blood pressure 102 mm[Hg] Vu Pulido MD Work Phone: [facility] 05-04-2025 13:38-0400 Body height 185.[address] Vu Pulido MD Work Phone: [facility] 05-04-2025 13:38-0400 Body mass index (BMI) [Ratio] 19.5 kg/m2 Dr. Vu Pulido MD Work Phone: 4(794)366-682920 [place] [address] 05-04-2025 13:38-0400 Body weight 67.[address] Vu Pulido MD Work Phone: 0(606)803-591720 [place] [address] 05-04-2025 13:38-0400 Diastolic blood pressure 63 mm[Hg] Dr. Vu Puldio MD Work Phone: 5(946)979-843820 [place] [address] 05-04-2025 13:38-0400 Heart rate 97 /min Dr. Vu Pulido MD Work Phone: 1(359)870-137292 [place] [address] 05-04-2025 13:38-0400 Respiratory rate 16 /min Dr. Vu Pulido MD Work Phone: 1(113)073-184520 [place] [address] 05-04-2025 13:38-0400 Systolic blood pressure 106 mm[Hg] Dr. Vu Pulido MD Work Phone: 8(749)998-264108 [address] 01-01-2025 17:14-0500 Diastolic blood pressure 66 mm[Hg] Darcie Suppan 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 Phone: [facility] 01-01-2025 17:14-0500 Systolic blood pressure 110 mm[Hg] Darcie Suppan 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 Phone: [facility] 01-01-2025 16:41-0500 Body mass index (BMI) [Ratio] 19.39 kg/m2 Darcie Suppan 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 Phone: [facility] 01-01-2025 16:41-0500 Body temperature 97.81 [degF] Darcie Suppan 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 Phone: [facility] 01-01-2025 16:41-0500 Body weight 68.49 kg Darcie Suppan 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 Phone: [facility] 01-01-2025 16:41-0500 Heart rate 76 /min Darcie Suppan 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 Phone: [facility] 01-01-2025 16:41-0500 SaO2% (BldA) [Mass fraction] 97 % Darcie Suppan 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 Phone: [facility] 07-29-2024 11:58-0400 Body mass index (BMI) [Ratio] 19.26 kg/m2 Silva Palacioser PA-C Work Phone: [facility] 07-29-2024 11:58-0400 Body weight 68.04 kg Silva Palacioser PA-C Work Phone: [facility] 07-29-2024 11:58-0400 Diastolic blood pressure 64 mm[Hg] Silva Palacioser PA-C Work Phone: [facility] 07-29-2024 11:58-0400 Heart rate 78 /min Silva Palacioser PA-C Work Phone: [facility] 07-29-2024 11:58-0400 Respiratory rate 18 /min Silva Palacioser PA-C Work Phone: [facility] 07-29-2024 11:58-0400 SaO2% (BldA) [Mass fraction] 99 % Silva Palaciossarah PA-C Work Phone: [facility] 07-29-2024 11:58-0400 Systolic blood pressure 106 mm[Hg] Silva Reyes PA-C Work Phone: [facility] 07-29-2024 10:38-0400 Body height 188 cm Vu Pulido MD Work Phone: [facility] 07-29-2024 10:38-0400 Body mass index (BMI) [Ratio] 19.26 kg/m2 Vu Pulido MD Work Phone: [facility] 07-29-2024 10:38-0400 Body temperature 98.01 [degF] Vu Pulido MD Work Phone: [facility] 07-29-2024 10:38-0400 Body weight 68.04 kg Vu Pulido MD Work Phone: [facility] 07-29-2024 10:38-0400 Diastolic blood pressure 64 mm[Hg] Vu Pulido MD Work Phone: [facility] 07-29-2024 10:38-0400 Heart rate 78 /min Vu Pulido MD Work Phone: [facility] 07-29-2024 10:38-0400 SaO2% (BldA) [Mass fraction] 99 % Vu Pulido MD Work Phone: [facility] 07-29-2024 10:38-0400 Systolic blood pressure 106 mm[Hg] Vu Pulido MD Work Phone: [facility] 01-27-2024 13:21-0400 Diastolic blood pressure 64 mm[Hg] Vu Pulido MD Work Phone: [facility] 01-27-2024 13:21-0400 Systolic blood pressure 110 mm[Hg] Vu Pulido MD Work Phone: [facility] 01-27-2024 13:03-0400 Body weight 72.58 kg Vu Pulido MD Work Phone: [facility] 01-27-2024 13:03-0400 Heart rate 64 /min Vu Pulido MD Work Phone: [facility] 01-27-2024 10:51-0400 Body weight 72.67 kg Vu Garcia Jr., MD Work Phone: [facility] 01-27-2024 10:51-0400 Diastolic blood pressure 60 mm[Hg] Vu Garcia Jr., MD Work Phone: [facility] 01-27-2024 10:51-0400 Heart rate 96 /min Vu Garcia Jr., MD Work Phone: [facility] 01-27-2024 10:51-0400 Respiratory rate 16 /min Vu Garcia Jr., MD Work Phone: [facility] 01-27-2024 10:51-0400 SaO2% (BldA) [Mass fraction] 98 % Vu Garcia Jr., MD Work Phone: [facility] 01-27-2024 10:51-0400 Systolic blood pressure 98 mm[Hg] Vu Garcia Jr., MD Work Phone: [facility] 10-09-2023 13:43-0500 Body height 188 cm Vu Pulido MD Work Phone: [facility] 10-09-2023 13:43-0500 Body weight 75.57 kg Vu Pulido MD Work Phone: [facility] 10-09-2023 13:43-0500 Diastolic blood pressure 65 mm[Hg] Vu Pulido MD Work Phone: [facility] 10-09-2023 13:43-0500 Heart rate 64 /min Vu Pulido MD Work Phone: [facility] 10-09-2023 13:43-0500 Systolic blood pressure 102 mm[Hg] Vu Pulido MD Work Phone: [facility] 10-08-2023 12:45-0500 Body weight 75.21 kg Silva Palacioser PA-C Work Phone: [facility] 10-08-2023 12:45-0500 Diastolic blood pressure 71 mm[Hg] Silva Palacioser PA-C Work Phone: [facility] 10-08-2023 12:45-0500 Heart rate 61 /min Silva Palacioser PA-C Work Phone: [facility] 10-08-2023 12:45-0500 Respiratory rate 16 /min Silva Palacioser PA-C Work Phone: [facility] 10-08-2023 12:45-0500 SaO2% (BldA) [Mass fraction] 98 % Silva Palacioser PA-C Work Phone: [facility] 10-08-2023 12:45-0500 Systolic blood pressure 105 mm[Hg] Silva Palacioser PA-C Work Phone: [facility] 09-09-2023 13:56-0400 Body height 188 cm Vu Pulido MD Work Phone: [facility] 09-09-2023 13:56-0400 Body weight 76.02 kg Vu Pulido MD Work Phone: [facility] 09-09-2023 13:56-0400 Diastolic blood pressure 86 mm[Hg] Vu Pulido MD Work Phone: [facility] 09-09-2023 13:56-0400 Heart rate 65 /min Vu Pulido MD Work Phone: [facility] 09-09-2023 13:56-0400 SaO2% (BldA) [Mass fraction] 98 % Vu Pulido MD Work Phone: [facility] 09-09-2023 13:56-0400 Systolic blood pressure 118 mm[Hg] Vu Pulido MD Work Phone: [facility] 09-01-2023 13:35-0400 Heart rate 82 /min Dr. Vu Pulido Work Phone: [facility] 09-01-2023 13:35-0400 Respiratory rate 18 /min Dr. Vu Pulido Work Phone: 7(767)891-519020 [place] [address] 09-01-2023 11:02-0400 Body temperature 97.8 [degF] Dr. Vu Pulido Work Phone: 7(783)742-042320 [place] [address] 09-01-2023 11:02-0400 Diastolic blood pressure 62 mm[Hg] Dr. Vu Pulido Work Phone: 3(350)039-585220 [place] [address] 09-01-2023 11:02-0400 SaO2% (BldA) [Mass fraction] 95 % Dr. Vu Pulido Work Phone: 3(776)367-639320 [place] [address] 09-01-2023 11:02-0400 Systolic blood pressure 100 mm[Hg] Dr. Vu Pulido Work Phone: 1(355)273-038220 [place] [address] 09-01-2023 10:34-0400 Inhaled oxygen flow rate 0 L/min Dr. Vu Pulido Work Phone: 3(490)872-521120 [place] [address] 09-01-2023 05:21-0400 Body mass index (BMI) [Ratio] 22.8 kg/m2 Dr. Vu Pulido Work Phone: 6(928)856-204120 [place] [address] 09-01-2023 05:21-0400 Body weight 78.[address] Vu Pulido Work Phone: 7(548)603-447920 [place] [address] 08-30-2023 14:16-0400 Body height 185.[address] Vu Pulido Work Phone: 3(166)095-692920 [place] [address] 08-24-2023 16:06-0400 Body mass index (BMI) [Ratio] 25.9 kg/m2 Dr. Vu Pulido Work Phone: 7(875)819-587020 [place] [address] 08-24-2023 16:06-0400 Body weight [address] Vu Pulido Work Phone: 4(248)120-365720 [place] [address] 08-24-2023 14:28-0400 Body temperature 97 [degF] Dr. Vu Pulido Work Phone: 0(207)879-364220 [place] [address] 08-24-2023 14:28-0400 Diastolic blood pressure 72 mm[Hg] Dr. Vu Pulido Work Phone: 7(301)429-275920 [place] [address] 08-24-2023 14:28-0400 Heart rate 94 /min Dr. Vu Pulido Work Phone: 5(766)718-075520 [place] [address] 08-24-2023 14:28-0400 Respiratory rate 18 /min Dr. Vu Pulido Work Phone: 3(180)251-225120 [place] [address] 08-24-2023 14:28-0400 SaO2% (BldA) [Mass fraction] 92 % Dr. Vu Pulido Work Phone: 2(032)658-319420 [place] [address] 08-24-2023 14:28-0400 Systolic blood pressure 114 mm[Hg] Dr. Vu Pulido Work Phone: 4(812)949-896120 [place] [address] 08-24-2023 13:06-0400 Body mass index (BMI) [Ratio] 22.5 kg/m2 Dr. Vu Pulido Work Phone: 6(989)[phone] [place] [address] 08-24-2023 13:06-0400 Body temperature 98.4 [degF] Dr. Vu Pulido Work Phone: 1(399)421-104220 [place] [address] 08-24-2023 13:06-0400 Body weight 81.[address] Vu Pulido Work Phone: 7(603)359-545720 [place] [address] 08-24-2023 13:06-0400 Diastolic blood pressure 80 mm[Hg] Dr. Vu Pulido Work Phone: 1(253)273-209420 [place] [address] 08-24-2023 13:06-0400 Heart rate 71 /min Dr. Vu Pulido Work Phone: 7(664)399-909120 [place] [address] 08-24-2023 13:06-0400 Respiratory rate 10 /min Dr. Vu Pulido Work Phone: 2(092)943-420820 [place] [address] 08-24-2023 13:06-0400 SaO2% (BldA) [Mass fraction] 90 % Dr. Vu Pulido Work Phone: 9(599)918-716920 [place] [address] 08-24-2023 13:06-0400 Systolic blood pressure 136 mm[Hg] Dr. Vu Pulido Work Phone: 5(482)900-051620 [place] [address] 08-22-2023 13:39-0400 Body mass index (BMI) [Ratio] 22.4 kg/m2 Dr. Vu Pulido Work Phone: 5(902)940-731820 [place] [address] 08-22-2023 13:39-0400 Body weight 81.[address] uV Pulido Work Phone: 1(051)499-854920 [place] [address] 08-22-2023 13:39-0400 Diastolic blood pressure 94 mm[Hg] Dr. Vu Pulido Work Phone: 0(281)306-448020 [place] [address] 08-22-2023 13:39-0400 Heart rate 85 /min Dr. Vu Pulido Work Phone: 7(025)665-549720 [place] [address] 08-22-2023 13:39-0400 Respiratory rate 20 /min Dr. Vu Pulido Work Phone: 3(514)954-424420 [place] [address] 08-22-2023 13:39-0400 Systolic blood pressure 134 mm[Hg] Dr. Vu Pulido Work Phone: 1(175)838-722520 [place] [address] 08-21-2023 10:14-0400 Body mass index (BMI) [Ratio] 23 kg/m2 Dr. Vu Pulido Work Phone: 0(271)274-768820 [place] [address] 08-21-2023 10:14-0400 Body temperature 98.7 [degF] Dr. Vu Pulido Work Phone: 5(299)965-303020 [place] [address] 08-21-2023 10:14-0400 Body weight 83.[address] Vu Pulido Work Phone: 7(144)015-857820 [place] [address] 08-21-2023 10:14-0400 Diastolic blood pressure 101 mm[Hg] Dr. Vu Pulido Work Phone: 4(212)233-456720 [place] [address] 08-21-2023 10:14-0400 Heart rate 82 /min Dr. Vu Pulido Work Phone: 1(163)138-228220 [place] [address] 08-21-2023 10:14-0400 Respiratory rate 16 /min Dr. Vu Pulido Work Phone: 8(148)905-261520 [place] [address] 08-21-2023 10:14-0400 SaO2% (BldA) [Mass fraction] 83 % Dr. Vu Pulido Work Phone: [facility] 08-21-2023 10:14-0400 Systolic blood pressure 135 mm[Hg] Dr. Vu Pulido Work Phone: [facility] 08-05-2023 15:02-0400 Heart rate 72 /min Vu Pulido MD Work Phone: [facility] 08-05-2023 14:35-0400 Body height 188 cm Vu Pulido MD Work Phone: [facility] 08-05-2023 14:35-0400 Body weight 83.46 kg Vu Pulido MD Work Phone: [facility] 08-05-2023 14:35-0400 Diastolic blood pressure 82 mm[Hg] Vu Pulido MD Work Phone: [facility] 08-05-2023 14:35-0400 SaO2% (BldA) [Mass fraction] 96 % Vu Pulido MD Work Phone: [facility] 08-05-2023 14:35-0400 Systolic blood pressure 130 mm[Hg] Vu Pulido MD Work Phone: [facility] 07-15-2023 14:16-0400 Body weight 85.19 kg Vu Garcia Jr., MD Work Phone: [facility] 07-15-2023 14:16-0400 Diastolic blood pressure 78 mm[Hg] Vu Garcia Jr., MD Work Phone: [facility] 07-15-2023 14:16-0400 Heart rate 86 /min Vu Garcia Jr., MD Work Phone: [facility] 07-15-2023 14:16-0400 Respiratory rate 16 /min Vu Garcia Jr., MD Work Phone: [facility] 07-15-2023 14:16-0400 SaO2% (BldA) [Mass fraction] 98 % Vu Garcia Jr., MD Work Phone: [facility] 07-15-2023 14:16-0400 Systolic blood pressure 126 mm[Hg] Vu Garcia Jr., MD Work Phone: [facility] 05-16-2023 13:39-0400 Body temperature 98.8 [degF] Karmen Dahlhausen 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 Phone: [facility] 05-16-2023 13:39-0400 Body weight 85.64 kg Karmen Dahlhausen 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 Phone: [facility] 05-16-2023 13:39-0400 Diastolic blood pressure 88 mm[Hg] Karmen Dahlhausen 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 Phone: [facility] 05-16-2023 13:39-0400 Heart rate 70 /min Karmen Dahlhausen 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 Phone: [facility] 05-16-2023 13:39-0400 Respiratory rate 16 /min Karmen Dahlhausen 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 Phone: [facility] 05-16-2023 13:39-0400 SaO2% (BldA) [Mass fraction] 97 % Karmen Dahlhausen 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 Phone: [facility] 05-16-2023 13:39-0400 Systolic blood pressure 153 mm[Hg] Karmen Dahlhausen 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 Phone: [facility] 02-07-2023 10:48-0400 Body temperature 97.39 [degF] Karmen Dahlhausen 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 Phone: [facility] 02-07-2023 10:48-0400 Body weight 84.46 kg Karmen Dahlhausen 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 Phone: [facility] 02-07-2023 10:48-0400 Diastolic blood pressure 82 mm[Hg] Karmen Dahlhausen 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 Phone: [facility] 02-07-2023 10:48-0400 Heart rate 70 /min Karmen Dahlhausen 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 Phone: [facility] 02-07-2023 10:48-0400 Respiratory rate 16 /min Karmen Dahlhausen 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 Phone: [facility] 02-07-2023 10:48-0400 SaO2% (BldA) [Mass fraction] 95 % Karmen Dahlhausen 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 Phone: [facility] 02-07-2023 10:48-0400 Systolic blood pressure 140 mm[Hg] Karmen Dahlhausen 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 Phone: [facility] 10-05-2022 14:03-0500 Body weight 86.64 kg Vu Pulido MD Work Phone: [facility] 10-05-2022 14:03-0500 Diastolic blood pressure 70 mm[Hg] Vu Pulido MD Work Phone: [facility] 10-05-2022 14:03-0500 Heart rate 63 /min Vu Pulido MD Work Phone: [facility] 10-05-2022 14:03-0500 SaO2% (BldA) [Mass fraction] 99 % Vu Pulido MD Work Phone: [facility] 10-05-2022 14:03-0500 Systolic blood pressure 122 mm[Hg] Vu Pulido MD Work Phone: [facility] 09-23-2022 22:18-0500 Diastolic blood pressure 92 mm[Hg] Dr. Vu Pulido Work Phone: [facility] Work Phone: 09-23-2022 22:18-0500 Heart rate 80 /min Dr. Vu Pulido Work Phone: [facility] Work Phone: 09-23-2022 22:18-0500 Respiratory rate 18 /min Dr. Vu Pulido Work Phone: [facility] Work Phone: 09-23-2022 22:18-0500 SaO2% (BldA) [Mass fraction] 93 % Dr. Vu Pulido Work Phone: [facility] Work Phone: 09-23-2022 22:18-0500 Systolic blood pressure 158 mm[Hg] Dr. Vu Pulido Work Phone: [facility] Work Phone: 09-23-2022 15:54-0500 Body height 182.[address] Vu Pulido Work Phone: [facility] Work Phone: 09-23-2022 15:54-0500 Body mass index (BMI) [Ratio] 27.1 kg/m2 Dr. Vu Pulido Work Phone: [facility] Work Phone: 09-23-2022 15:54-0500 Body temperature 97.6 [degF] Dr. Vu Pulido Work Phone: [facility] Work Phone: 09-23-2022 15:54-0500 Body weight 90.[address] Vu Pulido Work Phone: [facility] Work Phone: 08-17-2022 14:44-0400 Body mass index (BMI) [Ratio] 26.4 kg/m2 Dr. Vu Pulido Work Phone: [facility] Work Phone: 08-17-2022 14:44-0400 Body weight 88.[address] Vu Pulido Work Phone: [facility] Work Phone: 08-17-2022 14:44-0400 Diastolic blood pressure 81 mm[Hg] Dr. Vu Pulido Work Phone: [facility] Work Phone: 08-17-2022 14:44-0400 Heart rate 59 /min Dr. Vu Pulido Work Phone: [facility] Work Phone: 08-17-2022 14:44-0400 Respiratory rate 16 /min Dr. Vu Pulido Work Phone: [facility] Work Phone: 08-17-2022 14:44-0400 Systolic blood pressure 150 mm[Hg] Dr. Vu Pulido Work Phone: [facility] Work Phone: 08-09-2022 16:10-0400 Body weight 87.54 kg Vu Pulido MD Work Phone: [facility] 08-09-2022 16:10-0400 Diastolic blood pressure 68 mm[Hg] Vu Pulido MD Work Phone: [facility] 08-09-2022 16:10-0400 Heart rate 76 /min Vu Pulido MD Work Phone: [facility] 08-09-2022 16:10-0400 Systolic blood pressure 128 mm[Hg] Vu Pulido MD Work Phone: [facility] 08-09-2022 14:12-0400 Body temperature 97.81 [degF] Karmen Dahlhausen 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 Phone: [facility] 08-09-2022 14:12-0400 Body weight 88 kg Karmen Dahlhausen 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 Phone: [facility] 08-09-2022 14:12-0400 Diastolic blood pressure 68 mm[Hg] Karmen Dahlhausen 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 Phone: [facility] 08-09-2022 14:12-0400 Heart rate 76 /min Karmen Dahlhausen 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 Phone: [facility] 08-09-2022 14:12-0400 Respiratory rate 18 /min Karmen Dahlhausen 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 Phone: [facility] 08-09-2022 14:12-0400 SaO2% (BldA) [Mass fraction] 98 % Karmen James 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 Phone: [facility] 08-09-2022 14:12-0400 Systolic blood pressure 128 mm[Hg] Karmen James 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 Phone: [facility] 05-17-2022 13:48-0400 Body weight 90.27 kg Vu Pulido MD Work Phone: [facility] 05-17-2022 13:48-0400 Diastolic blood pressure 62 mm[Hg] Vu Pulido MD Work Phone: [facility] 05-17-2022 13:48-0400 Heart rate 56 /min Vu Pulido MD Work Phone: [facility] 05-17-2022 13:48-0400 Systolic blood pressure 110 mm[Hg] Vu Pulido MD Work Phone: [facility] 04-26-2022 15:54-0400 Body temperature 97.81 [degF] Zhao Pandey MD Work Phone: [facility] 04-26-2022 15:54-0400 Body weight 93.08 kg Zhao Pandey MD Work Phone: [facility] 04-26-2022 15:54-0400 Diastolic blood pressure 78 mm[Hg] Zhao Pandey MD Work Phone: [facility] 04-26-2022 15:54-0400 Heart rate 62 /min Zhao Pandey MD Work Phone: [facility] 04-26-2022 15:54-0400 Respiratory rate 18 /min Zhao Pandey MD Work Phone: [facility] 04-26-2022 15:54-0400 SaO2% (BldA) [Mass fraction] 98 % Zhao Pandey MD Work Phone: [facility] 04-26-2022 15:54-0400 Systolic blood pressure 112 mm[Hg] Zhao Pandey MD Work Phone: [facility] 04-26-2022 14:32-0400 Body temperature 97.5 [degF] Karmen Dahlhausen 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 Phone: [facility] 04-26-2022 14:32-0400 Diastolic blood pressure 70 mm[Hg] Karmen Dahlhausen 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 Phone: [facility] 04-26-2022 14:32-0400 Heart rate 62 /min Karmen Dahlhausen 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 Phone: [facility] 04-26-2022 14:32-0400 Respiratory rate 18 /min Karmen Dahlhausen 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 Phone: [facility] 04-26-2022 14:32-0400 SaO2% (BldA) [Mass fraction] 95 % Karmen Dahlhausen 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 Phone: [facility] 04-26-2022 14:32-0400 Systolic blood pressure 102 mm[Hg] Karmen Dahlhausen 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 Phone: [facility] 04-23-2022 02:34-0400 Body temperature 97.9 [degF] Dr. Kaiden Durham III Work Phone: [facility] Work Phone: 04-23-2022 02:34-0400 Diastolic blood pressure 88 mm[Hg] Dr. Kaiden Durham III Work Phone: [facility] Work Phone: 04-23-2022 02:34-0400 Heart rate 56 /min Dr. Kaiden Durham III Work Phone: [facility] Work Phone: 04-23-2022 02:34-0400 Respiratory rate 16 /min Dr. Kaiden Durham III Work Phone: [facility] Work Phone: 04-23-2022 02:34-0400 SaO2% (BldA) [Mass fraction] 96 % Dr. Kaiden Durham III Work Phone: [facility] Work Phone: 04-23-2022 02:34-0400 Systolic blood pressure 159 mm[Hg] Dr. Kaiden Durham III Work Phone: [facility] Work Phone: 04-22-2022 23:49-0400 Body height 182.[address] Kaiden Durham III Work Phone: [facility] Work Phone: 04-22-2022 23:49-0400 Body mass index (BMI) [Ratio] 28.2 kg/m2 Dr. Kaiden Durham III Work Phone: [facility] Work Phone: 04-22-2022 23:49-0400 Body weight 94.[address] Kaiden Durham III Work Phone: [facility] Work Phone: 03-01-2022 16:17-0400 Diastolic blood pressure 78 mm[Hg] Dr. Kaiden Durham III Work Phone: [facility] Work Phone: 03-01-2022 16:17-0400 Heart rate 68 /min Dr. aKiden Durham III Work Phone: [facility] Work Phone: 03-01-2022 16:17-0400 Systolic blood pressure 124 mm[Hg] Dr. Kaiden Durham III Work Phone: [facility] Work Phone: 03-01-2022 16:06-0400 Body mass index (BMI) [Ratio] 25.4 kg/m2 Dr. Kaiden Durham III Work Phone: [facility] Work Phone: 03-01-2022 16:06-0400 Body weight 92.[address] Kaiden Durham III Work Phone: [facility] Work Phone: 03-01-2022 16:06-0400 Respiratory rate 16 /min Dr. Kaiden Durham III Work Phone: [facility] Work Phone: 03-01-2022 16:06-0400 SaO2% (BldA) [Mass fraction] 94 % Dr. Kaiden Durham III Work Phone: [facility] Work Phone: Encounters Encounter Date Encounter Type Care Provider Facility Start: 07-15-2025 End: 07-15-2025 ambulatory Jerrod Day MA [facility] [place] Start: 07-15-2025 End: 07-15-2025 Patient encounter procedure Jerrod Day MA [facility] Comment on above: Population Health Na vigation Outreach ([employer] sprint list) Start: 07-13-2025 End: 07-13-2025 Follow-up encounter Vu Pulido MD Work Phone: [facility] Start: 07-12-2025 End: 07-12-2025 ambulatory VU PULIDO Facility:[facility] Start: 07-12-2025 End: 07-12-2025 Patient encounter procedure Vu Pulido MD Work Phone: [facility] Comment on above: Congestive heart donna lure, unspecified HF chronicity, unspecified heart failure type (HCC) (Primary Dx); Folate deficiency; Parkinson's disease, unspecified whether dyskinesia present, unspecified whether manifestations fluctuate (HCC); 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); Persistent atrial fibrillation (HCC); Hypertension, essential; Acute diastolic heart failure (HCC); Chronic obstructive pulmonary disease, unspecified COPD type (HCC); Fatty liver; Hypothyroidism, acquired; Compression fracture of lumbar vertebra with routine healing, unspecified lumbar vertebral level, subsequent encounter; History of CVA (cerebrovascular accident); Vitamin D deficiency; Screening for prostate cancer; Vascular dementia without behavioral disturbance, psychotic disturbance, mood disturbance, or anxiety, unspecified dementia severity (HCC); Personal history of malignant neoplasm of prostate Start: 07-12-2025 End: 07-12-2025 ambulatory VU ASHOK Facility:[facility] Start: 05-12-2025 End: 05-12-2025 Refill Vu Pulido MD Work Phone: [facility] Comment on above: Erroneous encounter- disregard Start: 05-04-2025 End: 05-04-2025 Patient encounter procedure Riley Florence [facility] Work Phone: Start: 05-04-2025 End: 05-04-[address] 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) (Primary Dx); Hypothyroidism, acquired; Folate deficiency; Encounter for immunization; Persistent atrial fibrillation (HCC); Simple chronic bronchitis (HCC); Acute diastolic heart failure (HCC); Hypertension, essential Start: 01-01-2025 End: 01-01-2025 ambulatory [facility] Facility:[facility] Start: 09-23-2024 End: 09-23-2024 Refill Olinda Chester APRN.CHOCOLATE PRODUCTION MACHINE OPERATOR Work Phone: [facility] Comment on above: Refill Request Start: 08-14-2024 End: 08-17-2024 Telephone encounter Vu Pulido MD Work Phone: [facility] Comment on above: Results (Cbc/) Start: 08-13-2024 End: 08-13-2024 ambulatory VU Grande ASHOK Facility:[facility] Start: 07-30-2024 End: 08-10-2024 Telephone encounter Vu Pulido MD Work Phone: [facility] Comment on above: Results Start: 07-29-2024 End: 07-29-2024 ambulatory VU PULIDO Facility:[facility] Start: 07-29-2024 End: 07-29-2024 Patient encounter procedure Vu Pulido MD Work Phone: [facility] Comment on above: URI, acute (Primary Dx); Hypothyroidism, acquired; Parkinson's disease, unspecified whether dyskinesia present, unspecified whether manifestations fluctuate (HCC); 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); Persistent atrial fibrillation (HCC); Acute diastolic heart failure (HCC); Congestive heart failure, unspecified HF chronicity, unspecified heart failure type (HCC); Hypertension, essential; Fatty liver; Compression fracture of lumbar vertebra with routine healing, unspecified lumbar vertebral level, subsequent encounter; Vascular dementia without behavioral disturbance, psychotic disturbance, mood disturbance, or anxiety, unspecified dementia severity (HCC); History of CVA (cerebrovascular accident); Vitamin D deficiency; Weight loss Parkinson's disease, unspecified whether dyskinesia present, unspecified whether manifestations fluctuate (HCC) (Primary Dx); Vascular dementia without behavioral disturbance, psychotic disturbance, mood disturbance, or anxiety, unspecified dementia severity (HCC); History of CVA (cerebrovascular accident); 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); Hypotension, unspecified hypotension type; Frequent falls Start: 02-01-2024 Telephone encounter Vu Pulido MD Work Phone: [facility] Comment on above: Results Start: 01-28-2024 Telephone encounter Vu Pulido MD Work Phone: [facility] Comment on above: Results Start: 01-27-2024 End: 01-27-2024 Patient encounter procedure Vu Garcia MD Work Phone: Neurology Comment on above: Vascular dementia wi thout behavioral disturbance, psychotic disturbance, mood disturbance, or anxiety, unspecified dementia severity (HCC) (Primary Dx); History of CVA (cerebrovascular accident); Parkinson's disease, unspecified whether dyskinesia present, unspecified whether manifestations fluctuate (HCC); 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); 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); Hypotension, unspecified hypotension type 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) (Primary Dx); Parkinson's disease, unspecified whether dyskinesia present, unspecified whether manifestations fluctuate (HCC); Persistent atrial fibrillation (HCC); Hypertension, essential; Congestive heart failure, unspecified HF chronicity, unspecified heart failure type (HCC); Acute diastolic heart failure (HCC); Hypothyroidism, acquired; Vascular dementia without behavioral disturbance, psychotic disturbance, mood disturbance, or anxiety, unspecified dementia severity (HCC); Compression fracture of lumbar vertebra with routine healing, unspecified lumbar vertebral level, subsequent encounter; Folate deficiency Start: 01-14-2024 ambulatory Radha baldwin RN Work Phone: [employer] Program Coordinator Management Start: 10-09-2023 End: 10-09-2023 Patient encounter procedure Vu Pulido MD Work Phone: [facility] Comment on above: Acute diastolic hear t failure (HCC) (Primary Dx); Parkinson's disease, unspecified whether dyskinesia present, unspecified whether manifestations fluctuate; Congestive heart failure, unspecified HF chronicity, unspecified heart failure type (HCC); Hypertension, essential; Hypothyroidism, acquired; Vascular dementia without behavioral disturbance, psychotic disturbance, mood disturbance, or anxiety, unspecified dementia severity (HCC); Persistent atrial fibrillation (HCC); Folate deficiency Start: 10-08-2023 End: 10-08-2023 Patient encounter procedure Silva Reyes PA-C Work Phone: Neurology Comment on above: Parkinson's disease (Primary Dx); 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); History of stroke; Cerebral infarction, unspecified mechanism (HCC); Vascular dementia without behavioral disturbance, psychotic disturbance, mood disturbance, or anxiety, unspecified dementia severity (HCC); 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); Mild cognitive impairment; Vascular dementia without behavioral disturbance (HCC); Neuropathy; Parkinson's disease, unspecified whether dyskinesia present, unspecified whether manifestations fluctuate Start: 09-16-2023 End: 09-16-2023 Subsequent hospital visit by physician Mri [facility] (I-Stat/1.5t) Work Phone: Radiology Comment on above: Cerebral infarction, unspecified mechanism (HCC) [I63.9] Start: 09-13-2023 Refill Vu Pulido MD Work Phone: [facility] Comment on above: Refill Request Start: 09-10-2023 Telephone encounter Vu Pulido MD Work Phone: [facility] Comment on above: Results Start: 09-09-2023 End: 09-09-2023 Subsequent hospital visit by physician Xr [facility] Work Phone: Radiology Comment on above: Pleural effusion [J9 0] Start: 09-09-2023 End: 09-09-2023 Patient encounter procedure Vu Pulido MD Work Phone: [facility] Comment on above: Congestive heart donna lure, unspecified HF chronicity, unspecified heart failure type (HCC) (Primary Dx); Pleural effusion; Hypertension, essential; Acute diastolic heart failure (HCC); Hypothyroidism, acquired; Vascular dementia without behavioral disturbance, psychotic disturbance, mood disturbance, or anxiety, unspecified dementia severity (HCC) Start: 09-03-2023 Telephone encounter Vu Pulido MD Work Phone: [facility] Comment on above: Results Start: 09-01-2023 Refill Vu loo MD Work Phone: Neurology Comment on above: Med Change Request Start: 09-01-2023 Non-patient / Non-visit Dr. Katrin Pulido Work Phone: [facility] Work Phone: Start: 08-31-2023 Non-patient / Non-visit Dr. Katrin Pulido Work Phone: [facility] Work Phone: Start: 08-30-2023 Non-patient / Non-visit Dr. Katrin Pulido Work Phone: [facility] Start: 08-30-2023 Non-patient / Non-visit Dr. Katrin Pulido Work Phone: [facility] Work Phone: Start: 08-30-2023 End: 09-01-2023 Evaluation and management of inpatient Dr. Vu Pulido Work Phone: [facility] Work Phone: Start: 08-30-2023 End: 09-01-[address] Vu Pulido Work Phone: [facility] Work Phone: Start: 08-24-2023 End: 08-24-2023 Emergency department patient visit Dr. Vu Puildo Work Phone: [facility] Work Phone: Start: 08-24-2023 End: 08-24-[address] Vu Pulido Work Phone: [facility] Work Phone: Start: 08-22-2023 End: 08-22-[address] Vu Pulido Work Phone: [facility] Work Phone: Start: 08-21-2023 End: 08-21-[address] Vu Pulido Work Phone: [facility] Work Phone: Start: 08-06-2023 Refill Vu loo MD Work Phone: Neurology Comment on above: Refill Request Start: 08-06-2023 Telephone encounter Vu Pulido MD Work Phone: Family [facility] Comment on above: Results Start: 08-05-2023 End: 08-05-2023 Patient encounter procedure Vu Pulido MD Work Phone: [facility] Comment on above: Vascular dementia wi thout behavioral disturbance, psychotic disturbance, mood disturbance, or anxiety, unspecified dementia severity (HCC) (Primary Dx); 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); Vitamin D deficiency; Hypertension, essential; Persistent atrial fibrillation (HCC); Hypothyroidism, acquired; Chronic obstructive pulmonary disease, unspecified COPD type (HCC); Fatty liver Start: 07-15-2023 End: 07-15-2023 Patient encounter procedure Vu Garcia MD Work Phone: Neurology Comment on above: Parkinson's disease (HCC) (Primary Dx); 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); History of stroke; Cerebral infarction, unspecified mechanism (HCC); Vascular dementia without behavioral disturbance, psychotic disturbance, mood disturbance, or anxiety, unspecified dementia severity (HCC) Start: 05-16-2023 End: 05-16-2023 Patient encounter procedure Karmen James APRN.CHOCOLATE PRODUCTION MACHINE OPERATOR Work Phone: Neurology Comment on above: Parkinson's disease (HCC) (Primary Dx); Balance problem; Leg weakness, bilateral; Vascular dementia without behavioral disturbance, psychotic disturbance, mood disturbance, or anxiety, unspecified dementia severity (HCC); 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); History of stroke Start: 02-07-2023 Telephone encounter Vu Pulido MD Work Phone: [facility] Comment on above: Results Start: 02-07-2023 End: 02-07-2023 Patient encounter procedure Karmen James APRN.CHOCOLATE PRODUCTION MACHINE OPERATOR Work Phone: Neurology Comment on above: Parkinson's disease (HCC) (Primary Dx); Balance problem; Leg weakness, bilateral; Vascular dementia without behavioral disturbance, psychotic disturbance, mood disturbance, or anxiety, unspecified dementia severity (HCC); 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 Comment on above: Refill Request Start: 11-20-2022 Refill Vu Pulido MD Work Phone: [facility] Comment on above: Refill Request Handicap Placard Start: 11-18-2022 Refill Karmen tenorio 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 Phone: Neurology Comment on above: Refill Request Start: 10-05-2022 End: 10-05-2022 Patient encounter procedure Vu Pulido MD Work Phone: [facility] Comment on above: SOB (shortness of br eath) (Primary Dx); Chronic obstructive pulmonary disease, unspecified COPD type (HCC) Start: 09-23-2022 End: 09-23-2022 Emergency department patient visit Dr. Vu Pulido Work Phone: [facility] Start: 09-04-2022 Telephone encounter Karmen Griffin APRN.CHOCOLATE PRODUCTION MACHINE OPERATOR Work Phone: Neurology Comment on above: Results Start: 08-17-2022 End: 08-17-[address] Vu Pulido Work Phone: [facility] Start: 08-13-2022 Telephone encounter Vu Pulido MD Work Phone: [facility] Comment on above: Results Start: 08-09-2022 End: 08-09-2022 Subsequent hospital visit by physician Xr [facility] Work Phone: Radiology Comment on above: Balance problem [R26 .89] Start: 08-09-2022 End: 08-09-2022 Patient encounter procedure Vu Pulido MD Work Phone: [facility] Comment on above: Hypothyroidism, acqu ired (Primary Dx); Hypertension, essential; Persistent atrial fibrillation (HCC); History of duodenal ulcer; Vascular dementia without behavioral disturbance (HCC); Bilateral impacted cerumen Parkinson's disease (HCC) (Primary Dx); Balance problem; Leg weakness, bilateral; 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 Vu Pulido Work Phone: [facility] Start: 05-22-2022 Telephone encounter Vu Pulido MD Work Phone: [facility] Comment on above: Results Start: 05-18-2022 Telephone encounter Vu Pulido MD Work Phone: [facility] Comment on above: Fax Request Start: 05-17-2022 End: 05-17-2022 Subsequent hospital visit by physician Valente [facility] Work Phone: Radiology Comment on above: Abnormal x-ray [R93. 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); Parkinson's disease (HCC); Persistent atrial fibrillation (HCC); Hypertension, essential; Hypothyroidism, acquired; Compression fracture of lumbar vertebra with routine healing, unspecified lumbar vertebral level, subsequent encounter; History of CVA (cerebrovascular accident); Vitamin D deficiency; Elevated troponin; Abnormal x-ray; Cellulitis of skin Start: 04-28-2022 End: 04-30-2022 ambulatory STEFFEN DE LA GARZA MD Facility:[facility] Start: 04-28-2022 Refill Karmen tenorio APRN.CHOCOLATE PRODUCTION MACHINE OPERATOR Work Phone: Neurology Comment on above: Refill Request Start: 04-26-2022 End: 04-26-2022 Patient encounter procedure Zhao Pandey MD Work Phone: [facility] Comment on above: Rash and other nonsp ecific skin eruption (Primary Dx); Contusion of left ankle, initial encounter; Leg swelling Start: 04-26-2022 End: 04-26-2022 Patient encounter procedure Karmen James APRN.CHOCOLATE PRODUCTION MACHINE OPERATOR Work Phone: Neurology Comment on above: Parkinson's disease (HCC) (Primary Dx); 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 Kaiden Durham III [facility] Start: 03-01-2022 End: 03-01-[address] Kaiden Durham III Work Phone: [facility] Start: 02-20-2022 Refill Karmen tenorio 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 Phone: Neurology Comment on above: Refill Request Procedures Date Procedure Procedure Detail Performing Clinician Start: 07-29-2024 COVID & INFLUENZA A/ B & RSV PCR, ROUTINE Vu Pulido MD Work Phone: Start: 09-16-2023 Mri brain brain stem w/o contrast material Vu Garcia MD Work Phone: Start: 09-09-2023 Radiologic exam ches t 2 views Vu Pulido MD Work Phone: Start: 09-01-2023 Plain chest X-ray Dr. Barry Pulido Work Phone: Start: 08-31-[address] Vu Pulido Work Phone: Start: 08-31-2023 CT angiography of ch est with contrast Dr. Vu Pulido Work Phone: Start: 08-30-2023 Plain chest X-ray Dr. Barry Pulido Work Phone: Start: 08-24-2023 Plain chest X-ray Dr. Barry Pulido Work Phone: Start: 09-23-2022 Plain chest X-ray Dr. Barry Pulido Work Phone: Start: 08-09-2022 Radex spine lumbosac ral 2/3 views Karmen James 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 Phone: Start: 05-17-2022 Radiologic exam ches t 2 views Vu Pulido MD Work Phone: Start: 04-23-2022 Plain chest X-ray Dr. Araceli Durham III Work Phone: Plan of Treatment Date Care Activity Detail Author Start: 05-18-2032 Urine microalbumin profile [facility] Start: 07-12-2028 Diabetes Screening Diabetes Screenin g [facility] Start: 07-29-2027 Diabetes Screening Diabetes Screenin g [facility] Start: 01-30-2027 Diabetes Screening Diabetes Screenin g [facility] Start: 01-26-2027 Diabetes Screening Diabetes Screenin g [facility] Start: 09-09-2026 Diabetes Screening Diabetes Screenin g [facility] Start: 09-02-2026 Diabetes Screening Diabetes Screenin g [facility] Start: 02-06-2026 DIABETES SCREEN DIABETES SCREEN [facility] Start: 02-06-2026 Diabetes Screening Diabetes Screenin g [facility] Start: 01-12-2026 End: 01-12-2026 Patient encounter procedure 01/12/2026 1:00 PM EST Office Visit [facility] [address] [place] [id number] Vu Pulido MD [address] [place] [id number] [facility] Comment on above: Wellness Start: 01-01-2026 RSV Vaccine (1 - 1-d ose 75+ series) RSV Vaccine (1 - 1-dose 75+ series) [facility] Comment on above: Postponed from 07/23 (Declined at this time) Start: 01-01-2026 Shingrix Vaccine (1 of 2) Adrian grix Vaccine (1 of 2) [facility] Comment on above: Postponed from 07/23 (Declined at this time) Start: 07-29-2025 Covid-19 Vaccine () Covid-19 Vaccine () [facility] Comment on above: Postponed from 07/19 (Declined at this time) Start: 07-29-2025 Covid-19 Vaccine () Covid-19 Vaccine () [facility] Comment on above: Postponed from 07/19 (Declined at this time) Start: 07-19-2025 Influenza vaccination [facility] Start: 07-12-2025 End: 10-11-2025 25-hydroxyvitamin D3 [Mass/volume] in Serum or Plasma [facility] Comment on above: Expected: 07/12/2025 , Expires: 10/11/2025 Start: 07-12-2025 End: 10-11-2025 CBC W Auto Differential panel - Blood [facility] Work Phone: Comment on above: Expected: 07/12/2025 , Expires: 10/11/2025 Start: 07-12-2025 End: 10-11-2025 Comprehensive metabolic 2000 panel - Serum or Plasma [facility] Comment on above: Expected: 07/12/2025 , Expires: 10/11/2025 Start: 07-12-2025 End: 10-11-2025 Folate [Mass/volume] in Serum or Plasma [facility] Comment on above: Expected: 07/12/2025 , Expires: 10/11/2025 Start: 07-12-2025 End: 10-11-2025 levETIRAcetam [Mass/volume] in Serum or Plasma [facility] Comment on above: Expected: 07/12/2025 , Expires: 10/11/2025 Start: 07-12-2025 End: 10-11-2025 Lipid 1996 panel - Serum or Plasma [facility] Comment on above: Expected: 07/12/2025 , Expires: 10/11/2025 Start: 07-12-2025 End: 10-11-2025 PSA/PROSTATE SPECIFIC ANTIGEN SCREENING [facility] Comment on above: Expected: 07/12/2025 , Expires: 10/11/2025 Start: 07-12-2025 End: 10-11-2025 T4/FTI/T4U [facility] Comment on above: Expected: 07/12/2025 , Expires: 10/11/2025 Start: 07-12-2025 End: 10-11-2025 Thyrotropin [Units/volume] in Serum or Plasma [facility] Comment on above: Expected: 07/12/2025 , Expires: 10/11/2025 Start: 07-12-2025 End: 07-12-2025 Patient encounter procedure 07/12/2025 1:40 PM EDT Office Visit [place] [id number] Vu Pulido MD [address] [address] 6 month follow up Family [facility] [place] Comment on above: 6 month follow up Start: 05-17-2025 DIABETES SCREEN DIABETES SCREEN [facility] Start: 05-17-2025 Influenza vaccination Influenza Vacc ine (#1) [facility] Comment on above: Postponed from 07/19 (Declined at this time) Start: 05-04-2025 Evaluation of diagno stic study results [facility] Start: 01-31-2025 Urine microalbumin profile DTAP,TDAP,TD (2 - Td or Tdap) [facility] Start: 01-26-2025 End: 01-26-2025 Patient encounter procedure 01/26/2025 2:40 PM EDT Office Visit Family [facility] [place] [address] [place] [place], [place] [id number] Vu Pulido MD [address] [place], [place] [id number] 6 month follow up Family [facility] [place] Comment on above: 6 month follow up Start: 01-01-2025 End: 01-01-2025 Patient encounter procedure 01/01/2025 4:00 PM EST Office Visit Family [facility] [place] [address] [place] [address] Vu Pulido MD [address] [place], [place] [id number] 5 MONTH FOLLOW UP [facility] [place] Comment on above: 5 MONTH FOLLOW UP Start: 11-21-2024 DIABETES SCREEN DIABETES SCREEN [facility] Start: 11-18-2024 Advance Directive Discussion Advance Directive Discussion [facility] Start: 11-18-2024 Medicare Advantage A nnual Wellness Visit Medicare Advantage Annual Wellness Visit [facility] Start: 10-09-2024 RSV Vaccine (1 - 1-d ose 60+ series) RSV Vaccine (1 - 1-dose 60+ series) [facility] Comment on above: Postponed from 07/23 (Declined at this time) Start: 10-09-2024 RSV Vaccine (1 - 1-d ose 75+ series) RSV Vaccine (1 - 1-dose 75+ series) [facility] Comment on above: Postponed from 07/23 (Declined at this time) Start: 08-13-2024 End: 11-12-2024 CBC W Auto Differential panel - Blood COMPLETE BLOOD COUNT AND DIFFERENTIAL Lab Routine Leukocytosis, unspecified type Expected: 08/13/2024, Expires: 11/12/2024 [facility] Work Phone: Comment on above: Expected: 08/13/2024 , Expires: 11/12/2024 Start: 08-05-2024 Covid-19 Vaccine (#1) Covid-19 Vacci ne (#1) [facility] Comment on above: Postponed from 01/20 (Declined at this time) Start: 08-05-2024 Covid-19 Vaccine (2022- season) Covid-19 Vaccine ( season) [facility] Comment on above: Postponed from 07/19 (Declined at this time) Start: 08-05-2024 Shingrix Vaccine (1 of 2) Adrian grix Vaccine (1 of 2) [facility] Comment on above: Postponed from 07/23 (Declined at this time) Start: 08-05-2024 Spirometry Spirometry [facility] Comment on above: Postponed from 07/23 (Declined at this time) Start: 07-29-2024 End: 10-28-2024 Comprehensive metabolic 2000 panel - Serum or Plasma [facility] Comment on above: Expected: 07/29/2024 , Expires: 10/28/2024 Start: 07-29-2024 End: 10-28-2024 levETIRAcetam [Mass/volume] in Serum or Plasma [facility] Comment on above: Expected: 07/29/2024 , Expires: 10/28/2024 Start: 07-29-2024 End: 10-28-2024 Lipid 1996 panel - Serum or Plasma [facility] Comment on above: Expected: 07/29/2024 , Expires: 10/28/2024 Start: 07-29-2024 End: 10-28-2024 Thyrotropin [Units/volume] in Serum or Plasma [facility] Work Phone: Comment on above: Expected: 07/29/2024 , Expires: 10/28/2024 Start: 05-17-2024 Influenza vaccination Influenza Vacc ine (#1) [facility] Comment on above: Postponed from 07/19 (Declined at this time) Start: 01-28-2024 End: 04-28-2024 Hemoglobin A1c in Blood HGB A1C Lab Routine Hyperglycemia Expected: 01/28/2024, Expires: 04/28/2024 [facility] Work Phone: Comment on above: Expected: 01/28/2024 , Expires: 04/28/2024 Start: 01-27-2024 End: 04-27-2024 Basic metabolic 2000 panel - Serum or Plasma [facility] Work Phone: Comment on above: Expected: 01/27/2024 , Expires: 04/27/2024 Start: 01-27-2024 End: 04-27-2024 Folate [Mass/volume] in Serum or Plasma [facility] Work Phone: Comment on above: Expected: 01/27/2024 , Expires: 04/27/2024 Start: 01-27-2024 End: 04-27-2024 Magnesium [Mass/volume] in Serum or Plasma [facility] Work Phone: Comment on above: Expected: 01/27/2024 , Expires: 04/27/2024 Start: 11-18-2023 Advance Directive Discussion Advance Directive Discussion [facility] Start: 10-21-2023 End: 01-20-2024 Thyrotropin [Units/volume] in Serum or Plasma TSH BLD Lab Routine Hypothyroidism, acquired Expected: 10/21/2023, Expires: 01/20/2024 [facility] Work Phone: Comment on above: Expected: 10/21/2023 , Expires: 01/20/2024 Start: 10-09-2023 End: 01-08-2024 Folate [Mass/volume] in Serum or Plasma FOLATE SERUM Lab Routine Folate deficiency Expected: 10/09/2023, Expires: 01/08/2024 [facility] Work Phone: Comment on above: Expected: 10/09/2023 , Expires: 01/08/2024 Start: 10-08-2023 End: 01-07-2024 Cobalamin (Vitamin B12) [Mass/volume] in Serum or Plasma [facility] Work Phone: Comment on above: Expected: 10/08/2023 , Expires: 01/07/2024 Start: 10-08-2023 End: 01-07-2024 Folate [Mass/volume] in Serum or Plasma [facility] Work Phone: Comment on above: Expected: 10/08/2023 , Expires: 01/07/2024 Start: 10-08-2023 End: 01-07-2024 Methylmalonate [Moles/volume] in Serum or Plasma [facility] Work Phone: Comment on above: Expected: 10/08/2023 , Expires: 01/07/2024 Start: 09-09-2023 End: 12-09-2023 Basic metabolic 2000 panel - Serum or Plasma [facility] Work Phone: Comment on above: Expected: 09/09/2023 , Expires: 12/09/2023 Start: 09-09-2023 End: 12-09-2023 CBC W Auto Differential panel - Blood [facility] Work Phone: Comment on above: Expected: 09/09/2023 , Expires: 12/09/2023 Start: 09-09-2023 End: 12-09-2023 Natriuretic peptide.B prohormone N-Terminal [Mass/volume] in Serum or Plasma [facility] Work Phone: Comment on above: Expected: 09/09/2023 , Expires: 12/09/2023 Start: 09-01-2023 Patient discharge [facility] Start: 08-31-2023 Oxygen therapy [facility] Start: 08-31-2023 Speech therapy assessment [facility] Start: 08-31-2023 Inhalation therapy procedure [facility] Start: 08-30-2023 Referral to occupati onal therapist [facility] Start: 08-30-2023 Referral to service [facility] Start: 08-30-2023 Ambulation without limitation [facility] Start: 08-30-2023 Assessment of risk o f venous thromboembolism [facility] Start: 08-30-2023 Insertion of cathete r into peripheral vein [facility] Start: 08-30-2023 Measuring intake and output [facility] Start: 08-30-2023 Providing care accor ding to standard [facility] Start: 08-30-2023 [facility] Start: 08-30-2023 Following clinical pathway protocol [facility] Start: 08-30-2023 Admission procedure [facility] Start: 08-24-2023 [facility] Start: 08-05-2023 End: 10-05-2023 25-hydroxyvitamin D3 [Mass/volume] in Serum or Plasma [facility] Work Phone: Comment on above: Expected: 08/05/2023 , Expires: 10/05/2023 Start: 08-05-2023 End: 10-05-2023 Hepatic function 2000 panel - Serum or Plasma [facility] Work Phone: Comment on above: Expected: 08/05/2023 , Expires: 10/05/2023 Start: 08-05-2023 End: 10-05-2023 levETIRAcetam [Mass/volume] in Serum or Plasma [facility] Work Phone: Comment on above: Expected: 08/05/2023 , Expires: 10/05/2023 Start: 07-19-2023 Influenza vaccination [facility] Start: 05-17-2023 ANNUAL PCP TEAM TRAVELING AUDITOR MICH DISEASE VISIT ANNUAL PCP TEAM CHRONIC DISEASE VISIT [facility] Start: 05-17-2023 BP CONTROLLED (<130/80) BP CONTROLLE D (<130/80) [facility] Start: 05-17-2023 Influenza vaccination INFLUENZA (#1) [facility] Comment on above: Postponed from 07/19 (Declined at this time) Start: 04-26-2023 BP CONTROLLED (<130/80) BP CONTROLLE D (<130/80) [facility] Start: 02-07-2023 End: 04-09-2023 ALK PHOS ISOENZYM BL ALK PHOS ISOENZYM BL Lab Routine Elevated alkaline phosphatase level Expected: 02/07/2023, Expires: 04/09/2023 [facility] Work Phone: Comment on above: Expected: 02/07/2023 , Expires: 04/09/2023 Start: 01-25-2023 BP CONTROLLED (<130/80) BP CONTROLLE D (<130/80) [facility] Start: 11-18-2022 ADVANCE DIRECTIVE DISCUSSION ADVANCE DIRECTIVE DISCUSSION [facility] Start: 11-16-2022 ANNUAL PCP TEAM TRAVELING AUDITOR MICH DISEASE VISIT ANNUAL PCP TEAM CHRONIC DISEASE VISIT [facility] Start: 08-17-2022 Patient referral [facility] Work Phone: Start: 08-09-2022 End: 10-09-2022 levETIRAcetam [Mass/volume] in Serum or Plasma LEVETIRACETAM Lab Routine 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) Expected: 08/09/2022, Expires: 10/09/2022 [facility] Work Phone: Comment on above: Expected: 08/09/2022 , Expires: 10/09/2022 Start: 08-09-2022 End: 10-09-2022 Thyrotropin [Units/volume] in Serum or Plasma TSH BLD Lab Routine Hypothyroidism, acquired Expected: 08/09/2022, Expires: 10/09/2022 [facility] Work Phone: Comment on above: Expected: 08/09/2022 , Expires: 10/09/2022 Start: 07-19-2022 Influenza vaccination [facility] Start: 07-03-2022 End: 09-02-2022 Thyrotropin [Units/volume] in Serum or Plasma TSH BLD Lab Routine Hypothyroidism, acquired Expected: 07/03/2022, Expires: 09/02/2022 [facility] Work Phone: Comment on above: Expected: 07/03/2022 , Expires: 09/02/2022 Start: 06-28-2022 End: 08-28-2022 Thyrotropin [Units/volume] in Serum or Plasma TSH BLD Lab Routine Hypothyroidism, acquired Elevated troponin Expected: 06/28/2022, Expires: 08/28/2022 [facility] Work Phone: Comment on above: Expected: 06/28/2022 , Expires: 08/28/2022 Start: 05-17-2022 End: 07-17-2022 Basic metabolic 2000 panel - Serum or Plasma BASIC METABOLIC PNL Lab Routine Persistent atrial fibrillation (HCC) Expected: 05/17/2022, Expires: 07/17/2022 [facility] Work Phone: Comment on above: Expected: 05/17/2022 , Expires: 07/17/2022 Start: 05-17-2022 End: 07-17-2022 CBC W Auto Differential panel - Blood [facility] Work Phone: Comment on above: Expected: 05/17/2022 , Expires: 07/17/2022 Start: 05-17-2022 End: 07-17-2022 Comprehensive metabolic 2000 panel - Serum or Plasma [facility] Work Phone: Comment on above: Expected: 05/17/2022 , Expires: 07/17/2022 Start: 05-17-2022 End: 07-17-2022 T4/FTI/T4U [facility] Work Phone: Comment on above: Expected: 05/17/2022 , Expires: 07/17/2022 Start: 11-18-2021 ADVANCE DIRECTIVE DISCUSSION ADVANCE DIRECTIVE DISCUSSION [facility] Start: 2001 RSV Vaccine (1 - 1-d ose 60+ series) RSV Vaccine (1 - 1-dose 60+ series) [facility] Start: 1991 SHINGRIX VACCINE (1 of 2) ADRIAN GRIX VACCINE (1 of 2) [facility] Start: 1960 SHINGRIX VACCINE (1 of 2) ADRIAN GRIX VACCINE (1 of 2) [facility] Start: 1959 SPIROMETRY SPIROMETRY [facility] Start: 1946 COVID-19 VACCINE (#1) COVID-19 VACCI NE (#1) [facility] Start: 1946 COVID-19 VACCINE (1) COVID-19 VACCIN E (1) [facility] Start: 01-20-1942 COVID-19 VACCINE (#1) COVID-19 VACCI NE (#1) [facility] Bilirubin measuremen t, urine [facility] [facility] Work Phone: Hemoglobin [Presence ] in Urine [facility] Work Phone: levETIRAcetam [Mass/volume] in Serum or Plasma LEVETIRACETAM Lab Routine 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) 08/10/2022 12:46 PM EDT [facility] Work Phone: Measurement of keton es in urine using dipstick [facility] Work Phone: Microscopic urinalysis [facility] Work Phone: End: 08-13-2024 Mri brain brain stem w/o contrast material MRI BRAIN WO IVCON Radiology Routine Cerebral infarction, unspecified mechanism (HCC) 1 Occurrences starting 07/15/2023 until 08/13/2024 [facility] Work Phone: Comment on above: 1 Occurrences starti ng 07/15/2023 until 08/13/2024 Patient Education [facility] Work Phone: Patient referral [facility] Work Phone: pH of Urine [facility] Work Phone: End: 09-08-2023 Radex spine lumbosacral 2/3 views XR LUMBAR GENERAL 3V AP/LAT/L5-S1 Radiology Routine Balance problem Leg weakness, bilateral 1 Occurrences starting 08/09/2022 until 09/08/2023 [facility] Work Phone: Comment on above: 1 Occurrences starti ng 08/09/2022 until 09/08/2023 Radex spine lumbosac ral 2/3 views XR LUMBAR GENERAL 3V AP/LAT/L5-S1 Radiology Routine Balance problem Leg weakness, bilateral 08/09/2022 5:42 PM EDT [facility] Work Phone: End: 10-08-2024 Radiologic exam chest 2 views [facility] Work Phone: Comment on above: 1 Occurrences starti ng 09/09/2023 until 10/08/2024 Radiologic exam ches t 2 views XR CHEST 2V FRONTAL/LAT Radiology Routine Pleural effusion Acute diastolic heart failure (HCC) 09/09/2023 2:53 PM EDT [facility] Work Phone: Removal impacted cer umen instrumentation unilat REMOVAL OF IMPACTED CERUMEN - INSTRUMENTATION Procedures Routine Bilateral impacted cerumen Ordered: 08/09/2022 [facility] Work Phone: Comment on above: Ordered: 08/09/[address] [facility] Work Phone: Thyrotropin [Units/volume] in Serum or Plasma TSH BLD Lab Routine Hypothyroidism, acquired Elevated troponin 05/17/2022 2:39 PM EDT [facility] Work Phone: Urinalysis, blood, qualitative [facility] Work Phone: Urine dipstick for glucose [facility] Work Phone: Urine dipstick for leukocyte esterase [facility] Work Phone: Urine dipstick for nitrite [facility] Work Phone: Urine dipstick for protein [facility] Work Phone: Urine examination [facility] Work Phone: Urine microscopy: epithelial cells [facility] Work Phone: Urine Microscopy: wh ite cells [facility] Work Phone: Urobilinogen [Presen ce] in Urine [facility] Work Phone: [facility] Immunizations Immunization Date Immunization Notes Care Provider Bozena moe 05-18-2022 tetanus toxoid, redu coleen diphtheria toxoid, and acellular pertussis vaccine, adsorbed Vu Pulido MD Work Phone: [facility] Work Phone: 11-04-2017 pneumococcal polysaccharide vaccine, 23 valent Karmen Dahlhausen 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 Phone: [facility] 09-18-2017 influenza virus vacc ine, unspecified formulation Vu Pulido MD Work Phone: [facility] 01-31-2015 pneumococcal conjuga te vaccine, 13 valent Karmen Dahlhausen 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 Phone: [facility] 01-31-2015 tetanus toxoid, redu coleen diphtheria toxoid, and acellular pertussis vaccine, adsorbed Karmen Dahlhausen 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 Phone: [facility] Payers Date Payer Category Payer Self-pay [id number] 2021 Medicare AETNA MEDICARE A ETNA MEDICARE PPO [id number] 2021-Present [phone] [address] [place] [address] PPO [id number] 2021 Medicare AETNA MEDICARE A ETNA MEDICARE PPO [id number] 2021-Present [phone] [address] [place] [address] PPO [id number] 2021 Medicare (Managed Care) [place] [id number] 2021 Private Health Insurance 101 [id number] 2010 Unknown [id number] 2006 Medicare [id number] 1940 Unknown [id number] Unknown [id number] Social History Date Type Detail Facility Start: 09-18-2017 End: 07-29-2024 Tobacco smoking status VAIS Ex-smoker [facility] History of tobacco use Cigarette Smoker [facility] Start: 09-18-2017 End: 05-16-2023 Cigarettes smoked current (pack per day) - Reported 1 [facility] Start: 09-18-2017 End: 07-29-2024 Tobacco use and exposure Smokeless tobacco non-user [facility] Start: 01-25-2022 End: 07-12-2025 Alcohol intake Current non-drinker of alcohol (finding) [facility] Start: 1940 Sex Assigned At Not on file [facility] Start: 01-15-2022 End: 10-05-2022 Exposure to SARS-CoV-2 (event) Not sure [facility] Start: 04-22-2022 End: 08-30-2023 Tobacco smoking status VAIS Unknown if ever smoked [facility] Start: 12-15-2020 None [facility] Start: 12-15-2020 Spouse/ Signif icant Other [facility] Start: 12-15-2020 Cigarettes [facility] Start: 1940 Sex Assigned At Male [facility] History of tobacco use Current smoker [facility] Start: 05-16-2023 End: 07-15-2023 Tobacco use panel [facility] Start: 10-19-2012 Adult Depression Screening Assessment 0 [facility] Goals Date Patient Goal Desired Activity /State Functional Status Date Assessment Result Facility 09-01-2023 Functional status Ambulates [facility] Work Phone: 01-31-2015 Are you deaf, or do you have serious difficulty hearing No 01/31/2015 10:12 AM Darcie Mathur LPN No [facility] 01-31-2015 Are you blind, or do you have serious difficulty seeing, even when wearing glasses No 01/31/2015 10:12 AM Darcie Mathur LPN No [facility] 01-31-2015 Do you have serious difficulty walking or climbing stairs No 01/31/2015 10:12 AM Darcie Mathur LPN No [facility] 01-31-2015 Do you have difficul ty dressing or bathing No 01/31/2015 10:12 AM Darcie Mathur LPN No [facility] 01-31-2015 Because of a physica l, mental, or emotional condition, do you have difficulty doing errands alone such as visiting a physician's office or shopping No 01/31/2015 10:12 AM Darcie Mathur LPN No [facility] Mental Status Date Assessment Result Facility 09-01-2023 Cognitive function Voice/Name [facility] Work Phone: 09-23-2022 Cognitive function Level Of Cons ciousness Awake;Alert;Appropriate;Fol lows Commands [facility] Work Phone: 04-22-2022 Cognitive function Level Of Cons ciousness Awake;Alert;Appropriate;Fol lows Commands [facility] Work Phone: 01-31-2015 Because of a physica l, mental, or emotional condition, do you have serious difficulty concentrating, remembering, or making decisions No 01/31/2015 10:12 AM EDT Darcie Jules LPN No [facility] Clinical Notes 09-30-2014 to 07-15-2025 Jerrod Day MA - 07/15/2025 11:37 AM EDTTelephone Encounter - Luma Alvarenga LPN - 07/13/2025 4:26 PM EDTTelephone Encounter - Luma Alvarenga LPN - 07/13/2025 4:26 PM EDTPatient Instructions Note Date & Type Note Facility 07-15-2025 Note HNO ID: [id number] Author: JERROD DAY MA Service: ? Author Type: Floor Surfacer Type: Progress Notes Filed: 07/15/2025 11:39 Note Text: POPULATION HEALTH NAVIGATION OUTREACH Action/2025 quarterly follow ups Lvm/updated notes Reason for Outreach Care Gap/HCC or Scheduling Wellness Visits Care Gaps due: Follow-up Appointment Patient Contacted: Unable or unnecessary to reach patient: Left message HCC related Updated appointment notes Navigation Signature: Jerrdo Day MA July 15, 2025 11:37 AM [facility] 07-15-2025 History of Presen t illness Narrative POPULATION HEALTH NAVIGATION OUTREACH Action/2025 quarterly follow ups Lvm/updated notes Reason for Outreach Care Gap/HCC or Scheduling Wellness Visits Care Gaps due: Follow-up Appointment Patient Contacted: Unable or unnecessary to reach patient: Left message HCC related Updated appointment notes Navigation Signature: Jerrod Day MA July 15, 2025 11:37 AM documented in this encounter [facility] 07-15-2025 Note Patient Outreach (PHILIP TNAV) RAMSES [id number]) 1940 M Date Time Provider Department 07/15/25 JERROD DAY NETMARGARETV During your visit today, we recorded the following information about you: Jerrod Day MA 07/15/2025 11:39 AM Signed POPULATION HEALTH NAVIGATION OUTREACH Action/2025 quarterly follow ups Lvm/updated notes Reason for Outreach Care Gap/HCC or Scheduling Wellness Visits Care Gaps due: Follow-up Appointment Patient Contacted: Unable or unnecessary to reach patient: Left message HCC related Updated appointment notes Navigation Signature: Jerrod Day MA July 15, 2025 11:37 AM Allergies As of Date: 07/15/2025 (No Known Allergies) Date Reviewed: 01/01/2025 Reviewed by: Montserrat Connor MA - Fully Assessed Reason for Visit: Population Health Navigation Outreach [3910] Cmt: [employer] hcc sprint list Prescriptions as of 07/15/2025 - potassium chloride 20 mEq TbER Take 1 tablet by mouth two times a day. - folic acid 1 mg tablet Take 1 tablet by mouth once daily. - levETIRAcetam (KEPPRA) 750 mg tablet Take 1 tablet by mouth two times a day. - MULTIVITAMIN ORAL Take by mouth. - levothyroxine (SYNTHROID) 25 mcg tablet Take 1 tablet by mouth once daily. Take on empty stomach. For thyroid. - Vitamin E, dl, acetate, (VITAMIN E) 400 unit capsule Take 400 Units by mouth once daily. - albuterol HFA (PROVENTIL HFA, VENTOLIN HFA) 90 mcg/actuation inhaler Inhale 2 Puffs as instructed every 6 hours as needed. - aspirin, enteric coated (ASPIRIN, ENTERIC COATED) 81 mg EC tablet Take 81 mg by mouth once daily. - cholecalciferol (VITAMIN D3) 1,000 unit tab tablet Take 3 capsules by mouth once daily. Problem List As Of Date 07/15/2025 Noted Resolved Rectal mass [K62.89] 02/04/2013 09/30/2014 History of duodenal ulcer [Z87.19] 02/04/2013 Prostate cancer (HCC) [C61] 09/30/2014 05/15/2022 Tobacco abuse [Z72.0] 09/30/2014 09/18/2017 History of CVA (cerebrovascular accident) [Z86.*09/30/2014 Memory loss [R41.3] 09/30/2014 05/17/2022 Vascular dementia [F01.50] 09/30/2014 Diarrhea following gastrointestinal surgery [R1*09/30/2014 11/04/2017 Seizure disorder as sequela of cerebrovascular *01/31/2015 Vitamin D deficiency [E55.9] 09/19/2017 Vertebral compression fracture (HCC) [M48.50XA] 11/04/2017 Age-related osteoporosis with current pathologi*11/04/2017 Hypertension, essential [I10] 05/02/2018 Personal history of malignant neoplasm of prost*10/17/2017 Closed fracture of shaft of humerus [S42.309A] 06/24/2018 08/05/2023 Encounter for screening for malignant neoplasm *10/17/2017 Parkinson's disease (HCC) [G20.A1] 10/27/2020 Persistent atrial fibrillation (HCC) [I48.19] 01/05/2021 Chronic anticoagulation [Z79.01] 01/05/2021 02/06/2023 Hypothyroidism, acquired [E03.9] 12/01/2021 Chronic obstructive pulmonary disease (HCC) [J4*10/05/2022 Acute bronchitis [J20.9] 11/05/2022 08/05/2023 Diagnosed: 08/05/2023 Acute diastolic heart failure (HCC) [I50.31] 08/05/2023 Diagnosed: 08/05/2023 Bilateral pleural effusion [J90] 08/05/2023 08/05/2023 Diagnosed: 08/05/2023 Congestive heart failure (HCC) [I50.9] 08/05/2023 Diagnosed: 08/05/2023 High level of cardiac marker [R74.8] 04/24/2022 Diagnosed: 08/05/2023 Syncope due to orthostatic hypotension [I95.1] 08/05/2023 Diagnosed: 08/05/2023 Weight gain [R63.5] 08/05/2023 07/29/2024 Diagnosed: 08/05/2023 Fatty liver [K76.0] 08/05/2023 Encounter Status:Closed by JERROD DAY on 07/15/25 [facility] 07-13-2025 Telephone encounter Note Notified patient . Will mail a copy of labs to her as requested. [facility] 07-13-2025 Miscellaneous Notes Notified patient . Will mail a copy of labs to her as requested. documented in this encounter [facility] 07-12-2025 Note HNO ID: [id number] Author: VU PULIDO MD Service: ? Author Type: Physician Type: Progress Notes Filed: 07/12/2025 14:37 Note Text: Ramses Gilliland is an 84-year-old male with a history of atrial fibrillation, Parkinson's disease, and seizures, presenting for a follow-up visit. HPI Atrial Fibrillation: - Recent cardiology visit with Dr. Munson; no atrial fibrillation noted. - No chest pain, dyspnea, or dizziness. - Blood pressure reportedly well-controlled. - Continues to take aspirin daily. - Not on anticoagulants due to fall risk. Parkinson's Disease: - No worsening tremor or seizures. - No stiffness or rigidity. - Continues to use a walker; recently had a walker stolen in [place]. - No recent falls, though Ramses had difficulty getting into a chair in [place]. - No edema in lower extremities. - Appetite is good; no significant weight loss. - No issues with bowel or urinary function. - No cough or wheezing. - No changes in mood or memory. - No recent neurology visits; previously on Sinemet. - Denies wanting to see Dr. Garcia again. Seizures: - Continues to take Keppra. - No recent seizures reported. Lifestyle: - Recently returned from a month-long stay in [place]. - Sold [place] property; will not be returning. - Has a medical living will; Ramses's daughter is the designated decision-maker. MEDICATIONS: Current Outpatient Medications Medication Sig levETIRAcetam (KEPPRA) 750 mg tablet Take 1 tablet by mouth two times a day. MULTIVITAMIN ORAL Take by mouth. levothyroxine (SYNTHROID) 25 mcg tablet Take 1 tablet by mouth once daily. Take on empty stomach. For thyroid. Vitamin E, dl, acetate, (VITAMIN E) 400 unit capsule Take 400 Units by mouth once daily. aspirin, enteric coated (ASPIRIN, ENTERIC COATED) 81 mg EC tablet Take 81 mg by mouth once daily. cholecalciferol (VITAMIN D3) 1,000 unit tab tablet Take 3 capsules by mouth once daily. potassium chloride 20 mEq TbER Take 1 tablet by mouth two times a day. folic acid 1 mg tablet Take 1 tablet by mouth once daily. albuterol HFA (PROVENTIL HFA, VENTOLIN HFA) 90 mcg/actuation inhaler Inhale 2 Puffs as instructed every 6 hours as needed. No current facility-administered medications for this visit. 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) 01/31/2015 Seizures ([facility]) 2006 Tobacco abuse 09/30/2014 Vascular dementia (HCC) 09/30/2014 Vertebral compression fracture (HCC) 11/04/2017 Vitamin D deficiency 09/19/2017 PAST SURGICAL HISTORY Procedure Laterality Date APPENDECTOMY remote CATARACT SURGERY, COMPLEX 2011, 2012 IOLs CHOLECYSTECTOMY 2004 laparoscopic CYSTOSCOPY 2008 PAST SURGICAL HISTORY OF 2007 prostate cancer external radiation rx PAST SURGICAL HISTORY OF surgery for PUD complications Billroth II FAMILY HISTORY Problem Relation Age of Onset COPD Mother COPD Father Breast Cancer Sister Cancer Brother SOCIAL HISTORY[1] Reviewed current medications, allergies, past medical history, surgical history, family history and social history today. REVIEW OF SYSTEMS Cardiovascular: (-) chest pain, (-) peripheral edema Respiratory: (-) dyspnea, (-) cough, (-) wheeze Gastrointestinal: (-) melena Genitourinary: (+) nocturia Musculoskeletal: (+) recent fall, (-) back pain Neurological: (+) tremor, (-) dizziness, (-) syncope, (-) seizures HEALTH MAINTENANCE: Reviewed health maintenance issues today and recommended the following in detail. Advance Directive Discussion due on 11/18/2024 Medicare Advantage Annual Wellness Visit Never done LAB REVIEWED: VITALS: BP 102/62 Pulse 87 Wt 65.8 kg (145 lb) SpO2 99% BMI 18.62 kg/m? Last 4 Encounter Wt Readings: Date: Wt: 07/12/2025 65.8 kg (145 lb) 01/01/2025 68.5 kg (151 lb) 07/29/2024 68 kg (150 lb) 07/29/2024 68 kg (150 lb) PHYSICAL EXAMINATION: GENERAL: NAD, alert and oriented. SKIN: Unremarkable, no rash or skin lesions. NECK: Supple, no lymphadenopathy, normal thyroid, no carotid bruits. LUNGS: Clear to auscultation bilaterally, no wheezes/rhonchi/rales. HEART: Irregularly irregular rhythm, no murmurs. No ectopy. EXTREMITIES: Normal, no deformities, no skin discoloration, no edema. NEURO: Awake, alert and oriented x3, cranial nerves II-XII grossly intact, normal gait, no involuntary motions. Mild resting tremor noted, no cogwheel rigidity. ASSESSMEN (more content not included)... [facility] 07-12-2025 History of Presen t illness Narrative Ramses Gilliland is an 84-year-old male with a history of atrial fibrillation, Parkinson's disease, and seizures, presenting for a follow-up visit. HPI Atrial Fibrillation: - Recent cardiology visit with Dr. Munson; no atrial fibrillation noted. - No chest pain, dyspnea, or dizziness. - Blood pressure reportedly well-controlled. - Continues to take aspirin daily. - Not on anticoagulants due to fall risk. Parkinson's Disease: - No worsening tremor or seizures. - No stiffness or rigidity. - Continues to use a walker; recently had a walker stolen in [place]. - No recent falls, though Ramses had difficulty getting into a chair in [place]. - No edema in lower extremities. - Appetite is good; no significant weight loss. - No issues with bowel or urinary function. - No cough or wheezing. - No changes in mood or memory. - No recent neurology visits; previously on Sinemet. - Denies wanting to see Dr. Garcia again. Seizures: - Continues to take Keppra. - No recent seizures reported. Lifestyle: - Recently returned from a month-long stay in [place]. - Sold [place] property; will not be returning. - Has a medical living will; Ramses's daughter is the designated decision-maker. MEDICATIONS: Current Outpatient Medications Medication Sig levETIRAcetam (KEPPRA) 750 mg tablet Take 1 tablet by mouth two times a day. MULTIVITAMIN ORAL Take by mouth. levothyroxine (SYNTHROID) 25 mcg tablet Take 1 tablet by mouth once daily. Take on empty stomach. For thyroid. Vitamin E, dl, acetate, (VITAMIN E) 400 unit capsule Take 400 Units by mouth once daily. aspirin, enteric coated (ASPIRIN, ENTERIC COATED) 81 mg EC tablet Take 81 mg by mouth once daily. cholecalciferol (VITAMIN D3) 1,000 unit tab tablet Take 3 capsules by mouth once daily. potassium chloride 20 mEq TbER Take 1 tablet by mouth two times a day. folic acid 1 mg tablet Take 1 tablet by mouth once daily. albuterol HFA (PROVENTIL HFA, VENTOLIN HFA) 90 mcg/actuation inhaler Inhale 2 Puffs as instructed every 6 hours as needed. No current facility-administered medications for this visit. 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) 01/31/2015 Seizures (HCC) 2006 Tobacco abuse 09/30/2014 Vascular dementia (HCC) 09/30/2014 Vertebral compression fracture (HCC) 11/04/2017 Vitamin D deficiency 09/19/2017 PAST SURGICAL HISTORY Procedure Laterality Date APPENDECTOMY remote CATARACT SURGERY, COMPLEX 2011, 2012 IOLs CHOLECYSTECTOMY 2005 laparoscopic CYSTOSCOPY 2008 PAST SURGICAL HISTORY OF 2007 prostate cancer external radiation rx PAST SURGICAL HISTORY OF 1980s surgery for PUD complications Billroth II FAMILY HISTORY Problem Relation Age of Onset COPD Mother COPD Father Breast Cancer Sister Cancer Brother SOCIAL HISTORY[1] Reviewed current medications, allergies, past medical history, surgical history, family history and social history today. REVIEW OF SYSTEMS Cardiovascular: (-) chest pain, (-) peripheral edema Respiratory: (-) dyspnea, (-) cough, (-) wheeze Gastrointestinal: (-) melena Genitourinary: (+) nocturia Musculoskeletal: (+) recent fall, (-) back pain Neurological: (+) tremor, (-) dizziness, (-) syncope, (-) seizures HEALTH MAINTENANCE: Reviewed health maintenance issues today and recommended the following in detail. Advance Directive Discussion due on 11/18/2024 Medicare Advantage Annual Wellness Visit Never done LAB REVIEWED: VITALS: BP 102/62 Pulse 87 Wt 65.8 kg (145 lb) SpO2 99% BMI 18.62 kg/m Last 4 Encounter Wt Readings: Date: Wt: 07/12/2025 65.8 kg (145 lb) 01/01/2025 68.5 kg (151 lb) 07/29/2024 68 kg (150 lb) 07/29/2024 68 kg (150 lb) PHYSICAL EXAMINATION: GENERAL: NAD, alert and oriented. SKIN: Unremarkable, no rash or skin lesions. NECK: Supple, no lymphadenopathy, normal thyroid, no carotid bruits. LUNGS: Clear to auscultation bilaterally, no wheezes/rhonchi/rales. HEART: Irregularly irregular rhythm, no murmurs. No ectopy. EXTREMITIES: Normal, no deformities, no skin discoloration, no edema. NEURO: Awake, alert and oriented x3, cranial nerves II-XII grossly intact, normal gait, no involuntary motions. Mild resting tremor noted, no cogwheel rigidity. ASSESSMENT AND PLAN 1. Congestive heart failure, unspecified HF chronicity, unspecified heart failure type (HCC) (I50.9) 2. Acute diastolic heart failure (HCC) (I50.31) - No chest pain, dyspnea, or lower extremity edema reported; oxygen saturation 99% on exam. - Reviewed recent cardiology notes from Dr. Riley Munson; no evidence of atrial fibrillation at last visit. - Continue current management. 3. Folate deficiency (E53.8) - Refill folic acid prescription. - Order folic acid level. 4. Parkinson's disease, unspecified whether dyskinesia present, unspecified whether manifestations fluctuate ([facility]) (G20.A1) - No worsening tremor, seizures, dizziness, or rigidity on exam. - Continue current management; instructed patient to report any new stiffness or worsening tremor. 5. Seizure disorder as sequela of cerebrovascular accident ([facility]) (I69.398) - Continue Keppra as prescribed. - Order Keppra level. 6. Persistent atrial fibrillation (HCC) (I48.19) - Reviewed recent cardiology notes from Dr. Riley Munson; no evidence of atrial fibrillation at last visit. - Continue to hold anticoagulation due to fall risk associated with Parkinson's disease. 7. Hypertension, essential (I10) - Blood pressure well controlled. - Continue current management. 8. Chronic obstructive pulmonary disease, unspecified COPD type (HCC) (J44.9) - No cough or wheezing reported. - Continue current management. 9. Fatty liver (K76.0) 10. Hypothyroidism, acquired (E03.9) - Order TSH and T4. 11. Compression fracture of lumbar vertebra with routine healing, unspecified lumbar vertebral level, subsequent encounter (S32.000D) - No current back pain reported. 12. History of CVA (cerebrovascular accident) (Z86.73) 13. Vitamin D deficiency (E55.9) - Order vitamin D level. 14. Screening for prostate cancer (Z12.5) - Discussed limitations and risks of PSA screening in elderly males, including high false positive rate and limited impact on mortality. - Order PSA. 15. Vascular dementia without behavioral disturbance, psychotic disturbance, mood disturbance, or anxiety, unspecified dementia severity (HCC) (F01.50) - Memory unchanged; patient and family coping well at home. - Medical living will in place; daughter is medical decision maker. 16. Personal history of malignant neoplasm of prostate (Z85.46) (See patient after visit summary for additional instructions to patient) Vu Pulido MD Recording using [employer] software for draft documentation of the visit was discussed with the patient/authorized applications sales representative; all questions welcomed and answered. Patient/authorized applications sales representative agreed to proceed [1] Social History Tobacco Use Smoking status: Former Current packs/day: 1.00 Average packs/day: 1 pack/day for 30.0 years (30.0 ttl pk-yrs) Types: Cigarettes Smokeless tobacco: Never Substance Use Topics Alcohol use: No Drug use: No documented in this encounter [facility] 07-12-2025 Instructions Vu Pulido MD - 07/12/2025 2:02 PM EDT - Refills for potassium and folic acid have been sent to your pharmacy; all other current medications (including aspirin and Keppra) have been refilled. - Before you leave today, get blood drawn for: - Complete blood count (CBC) and comprehensive metabolic panel (CMP) - Lipid panel - Thyroid studies (TSH and T4) - Keppra level - Prostate-specific antigen (PSA) - Vitamin D and folic acid levels - Continue using your walker; if you experience any new falls, increased stiffness or tremor, contact the office. - Weigh yourself periodically at home; if you notice unexplained weight loss, please let us know. - Return for follow-up in about six months to review your lab results and ongoing care. documented in this encounter [facility] 04-26-2025 Telephone encounter Note Prescription Refill Information The patient has been identified by name and date of : Yes Caregiver verified no other encounters exist for this prescription request: Yes Caregiver confirmed with patient/requestor that no other refills are due, in the near future, with this provider at this time: Yes The last office visit in the department: 01/01/25 Does the patient have a future office visit with this provider/department: Yes Requested Prescriptions Pending Prescriptions Disp Refills levETIRAcetam (KEPPRA) 750 mg tablet 180 tablet 3 Sig: Take 1 tablet by mouth two times a day. Sonam Thornton April 26, 2025 3:16 PM [facility] 04-26-2025 Miscellaneous Notes Prescription Refill Information The patient has been identified by name and date of : Yes Caregiver verified no other encounters exist for this prescription request: Yes Caregiver confirmed with patient/requestor that no other refills are due, in the near future, with this provider at this time: Yes The last office visit in the department: 01/01/25 Does the patient have a future office visit with this provider/department: Yes Requested Prescriptions Pending Prescriptions Disp Refills levETIRAcetam (KEPPRA) 750 mg tablet 180 tablet 3 Sig: Take 1 tablet by mouth two times a day. Sonam Thornton April 26, 2025 3:16 PM documented in this encounter [facility] 01-01-2025 Instructions Darcie Mccann APRN.CNP - 01/01/2025 5:16 PM EST 1) Doxycycline 100 mg 2 x day for 10 days- let me know if cough isn't getting better in 10 days 2) Follow up in 6 months documented in this encounter [facility] 01-01-2025 Note HNO ID: [id number] Author: DARCIE MCCANN APRN.CNP Service: ? Author Type: Nurse Practitioner Type: Progress Notes Filed: 01/01/2025 17:16 Note Text: This is a 84 year old male who presents today with: Patient presents with: Follow Up: 5 month exam HISTORY OF PRESENT ILLNESS: Ramses Gilliland is a 84 year old male. Patient presents with: Follow Up: 5 month exam Cough for about 3 weeks. Non-productive Has gone through 3 bottles of cough syrup No fever or chills No headache No PND No nasal congestion No sore throat PAST MEDICAL HISTORY: 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 10/02/2017 Dx 09/2017 and started on fosamax Prostate cancer (HCC) 2007 44 radiation treatments-moderately differentiated adenocarcinoma 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 MEDICATIONS Current Outpatient Medications Medication Sig MULTIVITAMIN ORAL Take by mouth. albuterol HFA (PROVENTIL HFA, VENTOLIN HFA) 90 mcg/actuation inhaler Inhale 2 Puffs as instructed every 6 hours as needed. aspirin, enteric coated (ASPIRIN, ENTERIC COATED) 81 mg EC tablet Take 81 mg by mouth once daily. folic acid 1 mg tablet Take 1 tablet by mouth once daily. levothyroxine (SYNTHROID) 25 mcg tablet Take 1 tablet by mouth once daily. Take on empty stomach. For thyroid. levETIRAcetam (KEPPRA) 750 mg tablet Take 1 tablet by mouth two times a day. Vitamin E, dl, acetate, (VITAMIN E) 400 unit capsule Take 400 Units by mouth once daily. furosemide (LASIX) 40 mg tablet Take 1 tablet by mouth two times a day. (Patient not taking: Reported on 01/01/2025) potassium chloride 20 mEq TbER Take 1 tablet by mouth two times a day. metoprolol tartrate, short acting, (LOPRESSOR) 50 mg tablet Take 50 mg by mouth two times a day. cholecalciferol (VITAMIN D3) 1,000 unit tab tablet Take 3 capsules by mouth once daily. No current facility-administered medications for this visit. FAMILY HISTORY Problem Relation Age of Onset COPD Mother COPD Father Breast Cancer Sister Cancer Brother Social History Tobacco Use Smoking status: Former Current packs/day: 1.00 Average packs/day: 1 pack/day for 30.0 years (30.0 ttl pk-yrs) Types: Cigarettes Smokeless tobacco: Never Substance Use Topics Alcohol use: No Drug use: No REVIEW OF SYSTEMS GENERAL: Some weight loss since having gall bladder out- gets diarrhea, no malaise, no fevers/chills HEENT: Negative for frequent or significant headaches, No changes in hearing or vision. NECK: Negative for lumps, goiter, pain and significant neck swelling RESPIRATORY: + non-productive cough, no hemoptysis, no wheezing, no dyspnea or shortness of breath CARDIOVASCULAR: Negative for chest pain, leg swelling, orthopnea, or palpitations GI: No nausea, vomiting, some diarrhea/ no constipation. No hematochezia/melena. No heartburn or reflux symptoms. : No history of dysuria, frequency or incontinence MUSCULOSKELETAL: Negative for joint pain or swelling. SKIN: Negative for lesions, rash, and itching ENDOCRINE: Negative for cold or heat intolerance, polyuria, polydipsia and goiter NEURO: No history of headaches, syncope, paralysis, seizures or tremors- no seizures since on keppra MOOD: Negative for depression, anxiety, or suicidal ideation. EXAM: BP 145/97 Pulse 76 Temp 36.6 ?C (97.8 ?F) (Right Tympanic) Wt 68.5 kg (151 lb) SpO2 97% BMI 19.39 kg/m? PHYSICAL EXAM: Physical Exam Vitals reviewed. Constitutional: Appearance: Normal appearance. HENT: Head: Normocephalic. Right Ear: Ear canal and external ear normal. There is no impacted cerumen. Left Ear: Ear canal and external ear normal. There is no impacted cerumen. Ears: Comments: Can't see TM except small sliver d/t cerumen- not impacted Nose: No congestion. Cardiovascular: Rate and Rhythm: Normal rate. Rhythm irregular. Comments: Suspect Afib- note from [place] [facility] said no DOAC d/t fall risk Pulmonary: Effort: Pulmonary effort is normal. Breath sounds: Rhonchi present. Comments: Scattered rhonchi- mild, upper lef (more content not included)... [facility] 01-01-2025 History of Presen t illness Narrative This is a 84 year old male who presents today with: Patient presents with: Follow Up: 5 month exam HISTORY OF PRESENT ILLNESS: Ramses Gilliland is a 84 year old male. Patient presents with: Follow Up: 5 month exam Cough for about 3 weeks. Non-productive Has gone through 3 bottles of cough syrup No fever or chills No headache No PND No nasal congestion No sore throat PAST MEDICAL HISTORY: 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 10/02/2017 Dx 09/2017 and started on fosamax Prostate cancer (HCC) 2007 44 radiation treatments-moderately differentiated adenocarcinoma 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 MEDICATIONS Current Outpatient Medications Medication Sig MULTIVITAMIN ORAL Take by mouth. albuterol HFA (PROVENTIL HFA, VENTOLIN HFA) 90 mcg/actuation inhaler Inhale 2 Puffs as instructed every 6 hours as needed. aspirin, enteric coated (ASPIRIN, ENTERIC COATED) 81 mg EC tablet Take 81 mg by mouth once daily. folic acid 1 mg tablet Take 1 tablet by mouth once daily. levothyroxine (SYNTHROID) 25 mcg tablet Take 1 tablet by mouth once daily. Take on empty stomach. For thyroid. levETIRAcetam (KEPPRA) 750 mg tablet Take 1 tablet by mouth two times a day. Vitamin E, dl, acetate, (VITAMIN E) 400 unit capsule Take 400 Units by mouth once daily. furosemide (LASIX) 40 mg tablet Take 1 tablet by mouth two times a day. (Patient not taking: Reported on 01/01/2025) potassium chloride 20 mEq TbER Take 1 tablet by mouth two times a day. metoprolol tartrate, short acting, (LOPRESSOR) 50 mg tablet Take 50 mg by mouth two times a day. cholecalciferol (VITAMIN D3) 1,000 unit tab tablet Take 3 capsules by mouth once daily. No current facility-administered medications for this visit. FAMILY HISTORY Problem Relation Age of Onset COPD Mother COPD Father Breast Cancer Sister Cancer Brother Social History Tobacco Use Smoking status: Former Current packs/day: 1.00 Average packs/day: 1 pack/day for 30.0 years (30.0 ttl pk-yrs) Types: Cigarettes Smokeless tobacco: Never Substance Use Topics Alcohol use: No Drug use: No REVIEW OF SYSTEMS GENERAL: Some weight loss since having gall bladder out- gets diarrhea, no malaise, no fevers/chills HEENT: Negative for frequent or significant headaches, No changes in hearing or vision. NECK: Negative for lumps, goiter, pain and significant neck swelling RESPIRATORY: + non-productive cough, no hemoptysis, no wheezing, no dyspnea or shortness of breath CARDIOVASCULAR: Negative for chest pain, leg swelling, orthopnea, or palpitations GI: No nausea, vomiting, some diarrhea/ no constipation. No hematochezia/melena. No heartburn or reflux symptoms. : No history of dysuria, frequency or incontinence MUSCULOSKELETAL: Negative for joint pain or swelling. SKIN: Negative for lesions, rash, and itching ENDOCRINE: Negative for cold or heat intolerance, polyuria, polydipsia and goiter NEURO: No history of headaches, syncope, paralysis, seizures or tremors- no seizures since on keppra MOOD: Negative for depression, anxiety, or suicidal ideation. EXAM: BP 145/97 Pulse 76 Temp 36.6 C (97.8 F) (Right Tympanic) Wt 68.5 kg (151 lb) SpO2 97% BMI 19.39 kg/m PHYSICAL EXAM: Physical Exam Vitals reviewed. Constitutional: Appearance: Normal appearance. HENT: Head: Normocephalic. Right Ear: Ear canal and external ear normal. There is no impacted cerumen. Left Ear: Ear canal and external ear normal. There is no impacted cerumen. Ears: Comments: Can't see TM except small sliver d/t cerumen- not impacted Nose: No congestion. Cardiovascular: Rate and Rhythm: Normal rate. Rhythm irregular. Comments: Suspect Afib- note from [place] [facility]ology said no DOAC d/t fall risk Pulmonary: Effort: Pulmonary effort is normal. Breath sounds: Rhonchi present. Comments: Scattered rhonchi- mild, upper left lobe very diminished Abdominal: General: Bowel sounds are normal. Palpations: Abdomen is soft. Musculoskeletal: General: Normal range of motion. Right lower leg: No edema. Left lower leg: No edema. Comments: Walks w/ a walker Skin: General: Skin is warm and dry. Neurological: Mental Status: He is alert and oriented to person, place, and time. Psychiatric: Mood and Affect: Mood normal. Behavior: Behavior normal. LABS: ASSESSMENT/PLAN: 1. 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) - ICD9: 438.89, 345.90, ICD10: I69.398, G40.909 (primary diagnosis) Stable on Keppra 2. Hypothyroidism, acquired - ICD9: 244.9, ICD10: E03.9 - Instructed patient on importance of taking on an empty stomach either first thing in the morning or at bedtime. - LEVOTHYROXINE 25 MCG TABLET current dose 3. Folate deficiency - ICD9: 266.2, ICD10: E53.8 On replacement - FOLIC ACID 1 MG TABLET 4. Encounter for immunization - ICD9: V03.89, ICD10: Z23 declined 5. Persistent atrial fibrillation (HCC) - ICD9: 427.31, ICD10: I48.19 Irreg rhythm - No anticoagulation d/t fall risk 6. Simple chronic bronchitis (HCC) - ICD9: 491.0, ICD10: J41.0 Treat with doxycycline for 10 days - DOXYCYCLINE HYCLATE 100 MG TABLET 7. Acute diastolic heart failure (HCC) - ICD9: 428.31, ICD10: I50.31 - Euvolemic - Continue current medications 8. Hypertension, essential - ICD9: 401.9, ICD10: I10 - Controlled, recheck 110/66 - Recommend home blood pressure monitoring, to bring results to next visit - Encouraged sodium restriction, DASH or Mediterranean diet - Recommend regular aerobic exercise Discussed treatment plan and patient voices understanding. Patient's questions answered appropriately. Medications and potential side effects were discussed and patient voices understanding. Return to the office as scheduled or as needed for worsening/no improvement. Darcie Mccann APRN.CNP documented in this encounter [facility] 09-23-2024 Telephone encounter Note Prescription Refill Information The patient has been identified by name and date of : Yes Caregiver verified no other encounters exist for this prescription request: Yes Caregiver confirmed with patient/requestor that no other refills are due, in the near future, with this provider at this time: Yes The last office visit in the department: 07/29/24 Does the patient have a future office visit with this provider/department: Yes Requested Prescriptions Pending Prescriptions Disp Refills folic acid 1 mg tablet 90 tablet 1 Sig: Take 1 tablet by mouth once daily. Luma Alvarenga LPN September 23, 2024 3:15 PM [facility] 09-23-2024 Miscellaneous Notes Prescription Refill Information The patient has been identified by name and date of : Yes Caregiver verified no other encounters exist for this prescription request: Yes Caregiver confirmed with patient/requestor that no other refills are due, in the near future, with this provider at this time: Yes The last office visit in the department: 07/29/24 Does the patient have a future office visit with this provider/department: Yes Requested Prescriptions Pending Prescriptions Disp Refills folic acid 1 mg tablet 90 tablet 1 Sig: Take 1 tablet by mouth once daily. Luma Alvarenga LPN September 23, 2024 3:15 PM documented in this encounter [facility] 08-17-2024 Telephone encounter Note Called and spoke with pt's , Doris (who's able to receive medication information). Notified her of results below, she verbalized understanding. Liliana Kaminski MA [facility] 08-17-2024 Miscellaneous Notes Called and spoke with pt's , Doris (who's able to receive medication information). Notified her of results below, she verbalized understanding. Liliana Kaminski MA Message left for return call. Rachelle Herman MA White count is better. documented in this encounter [facility] 08-14-2024 Telephone encounter Note Message left for return call. Rachelle Herman MA [facility] 08-14-2024 Telephone encounter Note White count is better. [facility] 08-05-2024 Telephone encounter Note Sw left 2nd message to have call returned to discuss home care resource needs. [facility] 08-05-2024 Miscellaneous Notes Sw left 2nd message to have call returned to discuss home care resource needs. Sw left message for patient/spouse to call Sw back to discuss home care resource needs. documented in this encounter [facility] 07-30-2024 Telephone encounter Note Sw left message for patient/spouse to call Sw back to discuss home care resource needs. [facility] 07-30-2024 Telephone encounter Note Call to pt, spoke with , Doris who is okay to receive medical information. Notified her of results and recommendations below from Provider. She verbalized understanding. Liliana Kaminski MA [facility] 07-30-2024 Miscellaneous Notes Call to pt, spoke with , Doris who is okay to receive medical information. Notified her of results and recommendations below from Provider. She verbalized understanding. Liliana Kaminski MA His labs are stable, except for his white count is up. Could likely be related to his cold. Recheck cbc in two weeks. documented in this encounter [facility] 07-30-2024 Telephone encounter Note His labs are stable, except for his white count is up. Could likely be related to his cold. Recheck cbc in two weeks. [facility] 07-30-2024 Telephone encounter Note notified of results [facility] 07-30-2024 Miscellaneous Notes notified of results Let them know his covid, flu and rsv swab was negative. documented in this encounter [facility] 07-30-2024 Telephone encounter Note Let them know his covid, flu and rsv swab was negative. [facility] 07-29-2024 Silva Collins PA-C - 07/29/2024 12:58 PM EDT Social work consult Increase water intake to at least 60 ounces of water or Gatorade a day Increase physical movement and exercise as tolerated Follow up in 4-[address] Garcia documented in this encounter [facility] 07-29-2024 Note HNO ID: [id number] Author: SILVA REYES PA-C Service: ? Author Type: Physician Fisheries Biologist Type: Progress Notes Filed: 07/29/2024 13:21 Note Text: ESTABLISHED PATIENT VISIT Last visit: 01/27/[address] Garcia ASSESSMENT/PLAN: 1. Vascular dementia without behavioral disturbance, psychotic disturbance, mood disturbance, or anxiety, unspecified dementia severity (HCC) - ICD9: 290.40, ICD10: F01.50 (primary diagnosis) Patient with impaired cognition as above (consistent with prior MOCA). Not driving and per family independent at home. However, suspect minimize cognitive deficits based on exam and interview today. D/w them the possibility of starting medication such as Namenda but they decline any additional meds. 2. History of CVA (cerebrovascular accident) - ICD9: V12.54, ICD10: Z86.73 No new recs. Continue ASA daily. Chol monitoring through PCP and statin as needed. BP goal <140/90. Glucose goal <140. 3. Parkinson's disease, unspecified whether dyskinesia present, unspecified whether manifestations fluctuate (HCC) - ICD9: 332.0, ICD10: G20.A1 Patient still with symptoms concerning for PD. Unfortunately due to compliance issues with Sinemet, I have never had the opportunity to evaluate the patient on Sinemet to see if symptoms improved. They are not wanting to restart. Thus, at this point would also d/c Sinemet CR at bedtime. Encouraged exercise and discussed fall precautions. They are not interested in PT. 4. 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 Continue Keppra 750mg BID. 6. Hypotension, unspecified hypotension type - ICD9: 458.9, ICD10: I95.9 Low BP in office. Question if due to Output > Input with pt on diuretic (Lasix 80mg daily) and minimal fluid intake per history provided. Pt to see Dr. Pulido this afternoon. Encouraged pt to keep that appointment for possible adjustments in diuretic. Vu Garcia MD CHIEF COMPLAINT: follow up HISTORY OF PRESENT ILLNESS: Ramses Gilliland is a 84 year old male, There were no vitals taken for this visit. with a PMH significant for PD, HTN, A fib, CHF, COPD, fatty liver, CVA, syncope. Last seen by Dr. Garcia on 01/27/24 for vascular dementia, CVA and PD. [place] stable at 11/09. Not driving. Declining meds for memory, no new symptoms of CVA. Patient not compliant with sinemet, deferring restarting this. Not interested in PT. On keppra 750mg bid for seizure prevention that occurred after stroke. Did have low BP, encouraged hydration and discussing lasix with PCP. Patient presents with his for follow-up appointment. Patient is acutely ill today, has a URI and is currently having a pending COVID test. Was exposed to COVID with multiple family members. Patient and primary concern today is frequent falls. Notes last appointment he has had couple falls a month. Primarily located in the bathroom as he cannot take his walker into the bathroom. Notes that his knees buckle and he falls to the ground. No significant injuries with any of these falls. Patient does not exercise and is not active throughout the day, primarily watches TV on the couch. Does not drink much water, but denies any lightheadedness. Denies any bradykinesia. notes that memory has been stable, no worsening. Drinks about 16 ounces of fluid a day. Denies any seizure activity, compliant with Keppra. No hallucinations, no constipation, sleep is stable, sleeps through the night. Appetite has been stable, no new concerns today other than noted above. REVIEW OF SYSTEMS GENERAL:No weight loss, malaise or fevers. HEENT:Negative for frequent or significant headaches, No changes in hearing or vision, no nose bleeds or other nasal problems NECK:Negative for lumps, goiter, pain and significant neck swelling RESPIRATORY: Negative for cough, wheezing or shortness of breath. CARDIOVASCULAR: Negative for chest pain, leg swelling or palpitations. GASTROINTESTINAL: Negative for abdominal discomfort, blood in stools or black stools or change in bowel habits GENITOURINARY: No history of dysuria, frequency or incontinence MUSCULOSKELETAL: Negative for joint pain or swelling, back pain or muscle pain. NEUROLOGIC:Negative for focal numbness or weakness, headaches and dizziness or syncope, vision changes, speech/languag changes - EXCEPT that as per HPI above. SKIN:Negative for lesions, rash, and itching. PSYCHIATRIC: Negative for sleep disturbance, mood disorder and recent psychosocial stressors. HEMATOLOGIC/LYMPHATIC/IMMUNOLOGI C:Negative for prolonged bleeding, bruising easily or swollen nodes. ENDOCRINE: Negative for cold or heat intolerance, polyuria, polydipsia and goiter. The remainder of the ROS was reviewed and is negative. LAB/IMAGING: Those performed since patient's last visit h (more content not included)... [facility] 07-29-2024 History of Presen t illness Narrative ESTABLISHED PATIENT VISIT Last visit: 01/27/[address] Garcia ASSESSMENT/PLAN: 1. Vascular dementia without behavioral disturbance, psychotic disturbance, mood disturbance, or anxiety, unspecified dementia severity (HCC) - ICD9: 290.40, ICD10: F01.50 (primary diagnosis) Patient with impaired cognition as above (consistent with prior MOCA). Not driving and per family independent at home. However, suspect minimize cognitive deficits based on exam and interview today. D/w them the possibility of starting medication such as Namenda but they decline any additional meds. 2. History of CVA (cerebrovascular accident) - ICD9: V12.54, ICD10: Z86.73 No new recs. Continue ASA daily. Chol monitoring through PCP and statin as needed. BP goal <140/90. Glucose goal <140. 3. Parkinson's disease, unspecified whether dyskinesia present, unspecified whether manifestations fluctuate (HCC) - ICD9: 332.0, ICD10: G20.A1 Patient still with symptoms concerning for PD. Unfortunately due to compliance issues with Sinemet, I have never had the opportunity to evaluate the patient on Sinemet to see if symptoms improved. They are not wanting to restart. Thus, at this point would also d/c Sinemet CR at bedtime. Encouraged exercise and discussed fall precautions. They are not interested in PT. 4. 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 Continue Keppra 750mg BID. 6. Hypotension, unspecified hypotension type - ICD9: 458.9, ICD10: I95.9 Low BP in office. Question if due to Output > Input with pt on diuretic (Lasix 80mg daily) and minimal fluid intake per history provided. Pt to see Dr. Pulido this afternoon. Encouraged pt to keep that appointment for possible adjustments in diuretic. Vu Garcia MD CHIEF COMPLAINT: follow up HISTORY OF PRESENT ILLNESS: Ramses Gilliland is a 84 year old male, There were no vitals taken for this visit. with a PMH significant for PD, HTN, A fib, CHF, COPD, fatty liver, CVA, syncope. Last seen by Dr. Garcia on 01/27/24 for vascular dementia, CVA and PD. [place] stable at 11/09. Not driving. Declining meds for memory, no new symptoms of CVA. Patient not compliant with sinemet, deferring restarting this. Not interested in PT. On keppra 750mg bid for seizure prevention that occurred after stroke. Did have low BP, encouraged hydration and discussing lasix with PCP. Patient presents with his for follow-up appointment. Patient is acutely ill today, has a URI and is currently having a pending COVID test. Was exposed to COVID with multiple family members. Patient and primary concern today is frequent falls. Notes last appointment he has had couple falls a month. Primarily located in the bathroom as he cannot take his walker into the bathroom. Notes that his knees buckle and he falls to the ground. No significant injuries with any of these falls. Patient does not exercise and is not active throughout the day, primarily watches TV on the couch. Does not drink much water, but denies any lightheadedness. Denies any bradykinesia. notes that memory has been stable, no worsening. Drinks about 16 ounces of fluid a day. Denies any seizure activity, compliant with Keppra. No hallucinations, no constipation, sleep is stable, sleeps through the night. Appetite has been stable, no new concerns today other than noted above. REVIEW OF SYSTEMS GENERAL:No weight loss, malaise or fevers. HEENT:Negative for frequent or significant headaches, No changes in hearing or vision, no nose bleeds or other nasal problems NECK:Negative for lumps, goiter, pain and significant neck swelling RESPIRATORY: Negative for cough, wheezing or shortness of breath. CARDIOVASCULAR: Negative for chest pain, leg swelling or palpitations. GASTROINTESTINAL: Negative for abdominal discomfort, blood in stools or black stools or change in bowel habits GENITOURINARY: No history of dysuria, frequency or incontinence MUSCULOSKELETAL: Negative for joint pain or swelling, back pain or muscle pain. NEUROLOGIC:Negative for focal numbness or weakness, headaches and dizziness or syncope, vision changes, speech/languag changes - EXCEPT that as per HPI above. SKIN:Negative for lesions, rash, and itching. PSYCHIATRIC: Negative for sleep disturbance, mood disorder and recent psychosocial stressors. HEMATOLOGIC/LYMPHATIC/IMMUNOLOGI C:Negative for prolonged bleeding, bruising easily or swollen nodes. ENDOCRINE: Negative for cold or heat intolerance, polyuria, polydipsia and goiter. The remainder of the ROS was reviewed and is negative. LAB/IMAGING: Those performed since patient's last visit have been reviewed. None since previous MEDICATIONS: levothyroxine (SYNTHROID) 25 mcg tablet Take 1 tablet by mouth once daily. Take on empty stomach. For thyroid. levETIRAcetam (KEPPRA) 750 mg tablet Take 1 tablet by mouth two times a day. Vitamin E, dl, acetate, (VITAMIN E) 400 unit capsule Take 400 Units by mouth once daily. folic acid 1 mg tablet Take 1 tablet by mouth once daily. furosemide (LASIX) 40 mg tablet Take 1 tablet by mouth two times a day. potassium chloride 20 mEq TbER Take 1 tablet by mouth two times a day. metoprolol tartrate, short acting, (LOPRESSOR) 50 mg tablet Take 50 mg by mouth two times a day. albuterol HFA (PROVENTIL HFA, VENTOLIN HFA) 90 mcg/actuation inhaler Inhale 2 Puffs as instructed every 6 hours as needed. aspirin, enteric coated (ASPIRIN, ENTERIC COATED) 81 mg EC tablet Take 81 mg by mouth once daily. cholecalciferol (VITAMIN D3) 1,000 unit tab tablet Take 3 capsules by mouth once daily. HISTORIES PAST MEDICAL HISTORY 11/04/2017: Age-related osteoporosis with current pathological fracture Comment: Dx 09/2017 and started on fosamax No date: Cataracts, bilateral 09/30/2014: Diarrhea following gastrointestinal surgery No date: Heart murmur 09/30/2014: History of CVA (cerebrovascular accident) 10/02/2017: Other osteoporosis without current pathological fracture Comment: Dx 09/2017 and started on fosamax 2007: Prostate cancer (HCC) Comment: 44 radiation treatments-moderately differentiated adenocarcinoma 01/31/2015: Seizure disorder as sequela of cerebrovascular accident ([facility]) 2007: Seizures ([facility]) 09/30/2014: Tobacco abuse 09/30/2014: Vascular dementia ([facility]) 11/04/2017: Vertebral compression fracture ([facility]) 09/19/2017: Vitamin D deficiency FAMILY HISTORY Problem Relation Age of Onset COPD Mother COPD Father Breast Cancer Sister Cancer Brother SOCIAL HISTORY Social History Tobacco Use Smoking status: Former Current packs/day: 1.00 Average packs/day: 1 pack/day for 30.0 years (30.0 ttl pk-yrs) Types: Cigarettes Smokeless tobacco: Never Substance Use Topics Alcohol use: No Drug use: No PHYSICAL EXAMINATION BP 106/64 Pulse 78 Resp 18 Wt 68 kg (150 lb) SpO2 99% BMI 19.26 kg/m Modified MoCA: 08/08 Namin/3 Attention: 2/5 Language: 0/2 Delayed recall: 2/5 Orientation: 01/21 GENERAL EXAM: General appearance: NAD, pleasant. HEENT: NC/AT, nasal congestion absent, no oral lesions, membranes moist. NECK: No masses, supple. Lungs: Coughing frequently throughout exam, hoarse voice Extr: Moves all extremities without difficulty Skin: Cool to touch. No rash. NEUROLOGICAL EXAM: General: Awake, alert, oriented x3 (person,place,time), speech fluent, no dysarthria; comprehension, naming, repetition intact. Modified MoCA above CN: PERRL, EOMI and without nystagmus, VFF to confrontation, facial sensation and strength are normal and symmetric, hearing is intact to finger rub bilaterally, palate and tongue movements are intact and symmetric. SCM and trapezius strength normal. Motor: Strength is 5/5 throughout, slight increased tone of the right upper extremity. No resting tremor Reflexes: 2/4 and symmetric, plantar stimulation is flexor. Coordination: FNF intact. No tremors. Sensation: Absent sensation to vibration in the great toe, diminished at the knee. Gait: Difficulty rising out of chair without upper extremities. Ambulating with a walker, shuffling gait Assessment and Plan: ASSESSMENT/PLAN: 1. Parkinson's disease, unspecified whether dyskinesia present, unspecified whether manifestations fluctuate (HCC) - ICD9: 332.0, ICD10: G20.A1 (primary diagnosis) Patient deferring any medication, physical therapy or occupational therapy for this. Patient having frequent falls, once a month on average. Falls are primarily in the bathroom but patient and family denying any significant injury. Patient states he is not able to bring his walker into the bathroom causing her to fall, attributes this to knees buckling. Patient does not exercise and is not very ambulatory throughout the day likely contributing to decompensation. Patient also with Parkinson's disease likely contribute to his falls as well as this is untreated at this time as patient did not tolerate medications. Patient without any significant lightheadedness, but encouraged increased fluid intake as he is only taking about 16 ounces a day. Discussed at length with patient and family the importance of physical exercise and both fall prevention, treating Parkinson's disease and preventing decompensation. Patient and agree and understand, but continued to defer physical therapy. Will place consult for social sciences professor to see what resources are available including a home inspection to prevent falls. 2. Vascular dementia without behavioral disturbance, psychotic disturbance, mood disturbance, or anxiety, unspecified dementia severity (HCC) - ICD9: 290.40, ICD10: F01.50 MoCA was 08/08 today, decreased from previous but patient has an acute viral illness consistent with COVID likely impacting a score. Encouraged brain and physical exercise as patient is deferring any medications. 3. History of CVA (cerebrovascular accident) - ICD9: V12.54, ICD10: Z86.73 No new symptoms that would warrant additional workup at this time. Patient compliant with aspirin therapy at this time. Following with primary care for stroke risk factor management. Repeat lab work was pending today as he saw primary care prior to this appointment. 4. 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 Tolerating as well as any side effects, no seizure activity since previous appointment. 5. Hypotension, unspecified hypotension type - ICD9: 458.9, ICD10: I95.9 Denies any lightheadedness, but encouraged to increase fluid intake as he is on taking about 16 ounces of fluid a day. 6. Frequent falls - ICD9: V15.88, ICD10: R29.6 Expressed my concern with patient's frequent falls as this may result in fatal injury. Patient and family understand. Encouraged increased physical activity throughout the day to increase strength. Will have social work evaluation as well for patient's safety at home. Patient agreeable to treatment plan of care at this time, all questions were answered. Patient to follow-up in 4 to [address] Garcia. Silva Reyes PA-C I spent a total of 40 minutes on the date of the service which included preparing to see the patient, [id number] patient care, completing clinical documentation, obtaining and/or reviewing separately obtained history, performing a medically appropriate examination, counseling and educating the patient/family/caregiver, and ordering medications, tests, or procedures. This document has been created with the use of voice recognition technology. It may contain inaccuracies: (e.g. misspellings, inaccurate syntax or word sense) that have escaped review. documented in this encounter [facility] 07-29-2024 Note HNO ID: [id number] Author: VU PULIDO MD Service: ? Author Type: Physician Type: Progress Notes Filed: 07/29/2024 11:26 Note Text: Patient presents with: 6 Month Exam HPI: Patient presents today for office visit for follow up. Has had a cough and runny nose X 3 days. Cough is non-productive. No wheezing. Denies any new or worsening shortness of breath. Mentions a scratchy throat and some sneezing. No fever, body aches or BUSTAMANTE. Was around family whom tested positive for Covid. His sister in law was diagnosed in the last week. Mentions had constant hiccups for 2 days straight a few days ago. Denies chest pain. No new or worsening shortness of breath. Rarely has to use rescue inhaler. Follows with Neurology, Dr. Garcia. Hx of seizures, Stroke, Parkinson's and Dementia. Appointment with Neuro this afternoon. Memory is about the same. Has fallen several times. Does use his walker. States appetite is about the same. Refers to hardly ever feeling hungry but eating ok when food is front of him. Drinking ok. states he doesn't drink a lot of water. Drinks pop. Left eye oh a lot. Sees his eye doctor regularly. Still sees [facility]. Weight is down a little bit. Discussed monitoring weight at home. No bowel changes No new moles. No abd pain. No unusual headache. No chronic cough. Note was copied and pasted, without alteration from:last ov reports that she has noticed a cough in the evening. Denies any swelling says he never has any swelling. She also thinks that he has hiccups after he eats and at night. Did have a fall a few weeks ago. No injury. None since. Using a walker. Weight is is stable. No swelling. No shortness of breath. No chest pain. No worsening neuro issues. No seizures No worsening tremor. Appetite is good. Bmp and bnp has been stable. Tsh was good recently. No issues with urine or bowels. MEDICATIONS: Current Outpatient Medications Medication Sig Vitamin E, dl, acetate, (VITAMIN E) 400 unit capsule Take 400 Units by mouth once daily. levETIRAcetam (KEPPRA) 750 mg tablet Take 1 tablet by mouth two times a day. levothyroxine (SYNTHROID) 25 mcg tablet Take 1 tablet by mouth once daily. Take on empty stomach. For thyroid. folic acid 1 mg tablet Take 1 tablet by mouth once daily. furosemide (LASIX) 40 mg tablet Take 1 tablet by mouth two times a day. potassium chloride 20 mEq TbER Take 1 tablet by mouth two times a day. metoprolol tartrate, short acting, (LOPRESSOR) 50 mg tablet Take 50 mg by mouth two times a day. albuterol HFA (PROVENTIL HFA, VENTOLIN HFA) 90 mcg/actuation inhaler Inhale 2 Puffs as instructed every 6 hours as needed. aspirin, enteric coated (ASPIRIN, ENTERIC COATED) 81 mg EC tablet Take 81 mg by mouth once daily. cholecalciferol (VITAMIN D3) 1,000 unit tab tablet Take 3 capsules by mouth once daily. No current facility-administered medications for this visit. ALLERGIES: ALLERGIES No Known Allergies PAST MEDICAL HISTORY 11/04/2017: Age-related osteoporosis with current pathological fracture Comment: Dx 09/2017 and started on fosamax No date: Cataracts, bilateral 09/30/2014: Diarrhea following gastrointestinal surgery No date: Heart murmur 09/30/2014: History of CVA (cerebrovascular accident) 10/02/2017: Other osteoporosis without current pathological fracture Comment: Dx 09/2017 and started on fosamax 2008: Prostate cancer (HCC) Comment: 44 radiation treatments-moderately differentiated adenocarcinoma 01/31/2015: 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) 2007: Seizures (HCC) 09/30/2014: Tobacco abuse 09/30/2014: Vascular dementia (HCC) 11/04/2017: Vertebral compression fracture ([facility]) 09/19/2017: Vitamin D deficiency PAST SURGICAL HISTORY remote : APPENDECTOMY 2011, 2012: CATARACT SURGERY, COMPLEX Comment: IOLs 2004: CHOLECYSTECTOMY Comment: laparoscopic 2008: CYSTOSCOPY 2007: PAST SURGICAL HISTORY OF Comment: prostate cancer external radiation rx 1980s : PAST SURGICAL HISTORY OF Comment: surgery for PUD complications Billroth II FAMILY HISTORY Problem Relation Age of Onset COPD Mother COPD Father Breast Cancer Sister Cancer Brother Social History Tobacco Use Smoking status: Former Current packs/day: 1.00 Average packs/day: 1 pack/day for 30.0 years (30.0 ttl pk-yrs) Types: Cigarettes Smokeless tobacco: Never Substance Use Topics Alcohol use: No Drug use: No Reviewed current medications, allergies, past medical history, surgical history, family history and social history today. REVIEW OF SYSTEMS All other reviewed and negative other than HPI. HEALTH MAINTENANCE: Reviewed health maintenance issues today and recommended the following in detail. Advance Directive Discussion due on 11/18/2023 Covid-19 Vaccine( season) Never done Influenza Vaccine(1) due on 07/19/2024 VITALS: BP 106/ (more content not included)... [facility] 07-29-2024 History of Presen t illness Narrative Patient presents with: 6 Month Exam HPI: Patient presents today for office visit for follow up. Has had a cough and runny nose X 3 days. Cough is non-productive. No wheezing. Denies any new or worsening shortness of breath. Mentions a scratchy throat and some sneezing. No fever, body aches or BUSTAMANTE. Was around family whom tested positive for Covid. His sister in law was diagnosed in the last week. Mentions had constant hiccups for 2 days straight a few days ago. Denies chest pain. No new or worsening shortness of breath. Rarely has to use rescue inhaler. Follows with Neurology, Dr. Garcia. Hx of seizures, Stroke, Parkinson's and Dementia. Appointment with Neuro this afternoon. Memory is about the same. Has fallen several times. Does use his walker. States appetite is about the same. Refers to hardly ever feeling hungry but eating ok when food is front of him. Drinking ok. states he doesn't drink a lot of water. Drinks pop. Left eye oh a lot. Sees his eye doctor regularly. Still sees [facility]. Weight is down a little bit. Discussed monitoring weight at home. No bowel changes No new moles. No abd pain. No unusual headache. No chronic cough. Note was copied and pasted, without alteration from:last ov reports that she has noticed a cough in the evening. Denies any swelling says he never has any swelling. She also thinks that he has hiccups after he eats and at night. Did have a fall a few weeks ago. No injury. None since. Using a walker. Weight is is stable. No swelling. No shortness of breath. No chest pain. No worsening neuro issues. No seizures No worsening tremor. Appetite is good. Bmp and bnp has been stable. Tsh was good recently. No issues with urine or bowels. MEDICATIONS: Current Outpatient Medications Medication Sig Vitamin E, dl, acetate, (VITAMIN E) 400 unit capsule Take 400 Units by mouth once daily. levETIRAcetam (KEPPRA) 750 mg tablet Take 1 tablet by mouth two times a day. levothyroxine (SYNTHROID) 25 mcg tablet Take 1 tablet by mouth once daily. Take on empty stomach. For thyroid. folic acid 1 mg tablet Take 1 tablet by mouth once daily. furosemide (LASIX) 40 mg tablet Take 1 tablet by mouth two times a day. potassium chloride 20 mEq TbER Take 1 tablet by mouth two times a day. metoprolol tartrate, short acting, (LOPRESSOR) 50 mg tablet Take 50 mg by mouth two times a day. albuterol HFA (PROVENTIL HFA, VENTOLIN HFA) 90 mcg/actuation inhaler Inhale 2 Puffs as instructed every 6 hours as needed. aspirin, enteric coated (ASPIRIN, ENTERIC COATED) 81 mg EC tablet Take 81 mg by mouth once daily. cholecalciferol (VITAMIN D3) 1,000 unit tab tablet Take 3 capsules by mouth once daily. No current facility-administered medications for this visit. ALLERGIES: ALLERGIES No Known Allergies PAST MEDICAL HISTORY 11/04/2017: Age-related osteoporosis with current pathological fracture Comment: Dx 09/2017 and started on fosamax No date: Cataracts, bilateral 09/30/2014: Diarrhea following gastrointestinal surgery No date: Heart murmur 09/30/2014: History of CVA (cerebrovascular accident) 10/02/2017: Other osteoporosis without current pathological fracture Comment: Dx 09/2017 and started on fosamax 2008: Prostate cancer ([facility]) Comment: 44 radiation treatments-moderately differentiated adenocarcinoma 01/31/2015: Seizure disorder as sequela of cerebrovascular accident ([facility]) 2007: Seizures ([facility]) 09/30/2014: Tobacco abuse 09/30/2014: Vascular dementia ([facility]) 11/04/2017: Vertebral compression fracture ([facility]) 09/19/2017: Vitamin D deficiency PAST SURGICAL HISTORY remote : APPENDECTOMY 2011, 2012: CATARACT SURGERY, COMPLEX Comment: IOLs 2005: CHOLECYSTECTOMY Comment: laparoscopic 2009: CYSTOSCOPY 2008: PAST SURGICAL HISTORY OF Comment: prostate cancer external radiation rx 1980s : PAST SURGICAL HISTORY OF Comment: surgery for PUD complications Billroth II FAMILY HISTORY Problem Relation Age of Onset COPD Mother COPD Father Breast Cancer Sister Cancer Brother Social History Tobacco Use Smoking status: Former Current packs/day: 1.00 Average packs/day: 1 pack/day for 30.0 years (30.0 ttl pk-yrs) Types: Cigarettes Smokeless tobacco: Never Substance Use Topics Alcohol use: No Drug use: No Reviewed current medications, allergies, past medical history, surgical history, family history and social history today. REVIEW OF SYSTEMS All other reviewed and negative other than HPI. HEALTH MAINTENANCE: Reviewed health maintenance issues today and recommended the following in detail. Advance Directive Discussion due on 11/18/2023 Covid-19 Vaccine( season) Never done Influenza Vaccine(1) due on 07/19/2024 VITALS: BP 106/64 Pulse 78 Temp 36.7 C (98 F) Ht 188 cm (6' 2) Wt 68 kg (150 lb) SpO2 99% BMI 19.26 kg/m Last 4 Encounter Wt Readings: Date: Wt: 01/27/2024 72.6 kg (160 lb) 01/27/2024 72.7 kg (160 lb 3.2 oz) 10/09/2023 75.6 kg (166 lb 9.6 oz) 10/08/2023 75.2 kg (165 lb 12.8 oz) PHYSICAL EXAMINATION: General appearance: Well appearing, alert, in no acute distress, well-hydrated, well nourished. Skin: Skin color, texture, turgor normal, no suspicious rashes or lesions Head: Normocephalic, no masses, lesions, tenderness or abnormalities Eyes: Anicteric sclera. Pupils are equally round and reactive to light. Extraocular movements are intact. Ears: External ears normal, canals clear Nose/Sinuses: Nares normal, septum midline, mucosa normal, no drainage or sinus tenderness Oropharynx: Lips, mucosa, and tongue normal, teeth and gums normal, oropharynx normal Neck: Supple, no adenopathy; Lungs: Lungs clear to auscultation. No wheezing, rhonchi, rales Heart: RRR without murmur, gallop, or rubs. No ectopy Abdomen: Normal abdominal exam, Abdomen soft, non-tender. Bowel sounds normal. No masses, organomegaly Extremities: No deformities, edema, skin discoloration, clubbing or cyanosis. Good capillary refill. ASSESSMENT/PLAN: 1. URI, acute - ICD9: 465.9, ICD10: J06.9 (primary diagnosis) - given exposure to covid, check swab. - Red flags for re-assessment reviewed with patient in detail. - symptom relief. - COVID & INFLUENZA A/B & RSV PCR, ROUTINE 2. Hypothyroidism, acquired - ICD9: 244.9, ICD10: E03.9 Continue current medications. Notify us if any difficulties are noted. - LEVOTHYROXINE 25 MCG TABLET - THYROID STIMULATING HORMONE - LIPID PANEL BASIC 3. Parkinson's disease, unspecified whether dyskinesia present, unspecified whether manifestations fluctuate (HCC) - ICD9: 332.0, ICD10: G20.A1 - per neuro 4. 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) - ICD9: 438.89, 345.90, ICD10: I69.398, G40.909 - refill meds. - LEVETIRACETAM 5. Persistent atrial fibrillation (HCC) - ICD9: 427.31, ICD10: I48.19 - per cardiology 6. Acute diastolic heart failure (HCC) - ICD9: 428.31, ICD10: I50.31 - no signs of decompensation today 7. Congestive heart failure, unspecified HF chronicity, unspecified heart failure type (HCC) - ICD9: 428.0, ICD10: I50.9 - stable 8. Hypertension, essential - ICD9: 401.9, ICD10: I10 - Controlled - Continue current medications 9. Fatty liver - ICD9: 571.8, ICD10: K76.0 - follow labs. 10. Compression fracture of lumbar vertebra with routine healing, unspecified lumbar vertebral level, subsequent encounter - ICD9: V54.17, ICD10: S32.000D - stable. Doing well. 11. Vascular dementia without behavioral disturbance, psychotic disturbance, mood disturbance, or anxiety, unspecified dementia severity (HCC) - ICD9: 290.40, ICD10: F01.50 - no change 12. History of CVA (cerebrovascular accident) - ICD9: V12.54, ICD10: Z86.73 - stable 13. Vitamin D deficiency - ICD9: 268.9, ICD10: E55.9 -stable 14. Weight loss - ICD9: 783.21, ICD10: R63.4 - monitor weight at home. If continues, let me know. Check labs. - THYROID STIMULATING HORMONE - COMPLETE BLOOD COUNT AND DIFFERENTIAL - COMPREHENSIVE METABOLIC PANEL Vu Pulido MD documented in this encounter [facility] 02-01-2024 Miscellaneous Notes Patient called. Spouse answered. Notified of results. Spouse verbalizes understanding and will notify patient. Crystal Max RN Let them know labs are ok. documented in this encounter [facility] 01-28-2024 Miscellaneous Notes Patient's notified of results and provider's instructions. Patient's verbalizes understanding. Sonam Hernadez RN Left message to return call. Patient will need to come in to have the HgA1C drawn since it can not be added to the labs. Labs ok except sugar was up. Add a1c documented in this encounter [facility] 01-27-2024 Miscellaneous Notes Addended by: VU PULIDO on: 01/27/2024 01:34 PM Modules accepted: Orders documented in this encounter [facility] 01-27-2024 History of Presen t illness Narrative Patient presents with: Follow Up HPI: Patient presents today for office visit for follow up. reports that she has noticed a cough in the evening. Denies any swelling says he never has any swelling. She also thinks that he has hiccups after he eats and at night. Did have a fall a few weeks ago. No injury. None since. Using a walker. Weight is is stable. No swelling. No shortness of breath. No chest pain. No worsening neuro issues. No seizures No worsening tremor. Appetite is good. Bmp and bnp has been stable. Tsh was good recently. No issues with urine or bowels. See previous ov: No weight increase. Stable. Continues on Furosemide and potassium. Denies chest pain No new or worsening shortness of breath Saw cardiology Riley Munson with [facility] on 09/30/23. Repeat chest xray was better. Shows some scarring in the bases. Canceled appt with Pulmonary Saw Neuro yesterday. They are continuing to adjsut his sinemet. Reviewed his recent labs. Will start him on folic acid. See previous ov: Weight has come down. We had increased his lasix and potassium. Denies chest pain and shortness of breath Was able to review old records. Can't get into pulmonary at [facility] until October. Has an appt to see cardiology. Still mild cough. No wheeze. Denies shortness of breath. No fever or chills. Feels much better. No edema. Appetite is good. They are wondering if they still need the appt for pulmonary. If so, would like to change. I suspect CHF is the culprit of his issues so we can recheck his chest xray first. MEDICATIONS: Current Outpatient Medications Medication Sig levETIRAcetam (KEPPRA) 750 mg tablet Take 1 tablet by mouth two times a day. Vitamin E, dl, acetate, (VITAMIN E) 400 unit capsule Take 400 Units by mouth once daily. folic acid 1 mg tablet Take 1 tablet by mouth once daily. furosemide (LASIX) 40 mg tablet Take 1 tablet by mouth two times a day. potassium chloride 20 mEq TbER Take 1 tablet by mouth two times a day. metoprolol tartrate, short acting, (LOPRESSOR) 50 mg tablet Take 50 mg by mouth two times a day. levothyroxine (SYNTHROID) 25 mcg tablet Take 1 tablet by mouth once daily. Take on empty stomach. For thyroid. albuterol HFA (PROVENTIL HFA, VENTOLIN HFA) 90 mcg/actuation inhaler Inhale 2 Puffs as instructed every 6 hours as needed. aspirin, enteric coated (ASPIRIN, ENTERIC COATED) 81 mg EC tablet Take 81 mg by mouth once daily. cholecalciferol (VITAMIN D3) 1,000 unit tab tablet Take 3 capsules by mouth once daily. No current facility-administered medications for this visit. ALLERGIES: ALLERGIES No Known Allergies 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 10/02/2017 Dx 09/2017 and started on fosamax Prostate cancer (HCC) 2008 44 radiation treatments-moderately differentiated adenocarcinoma Seizure disorder as sequela of cerebrovascular accident ([facility]) 01/31/2015 Seizures ([facility]) 2007 Tobacco abuse 09/30/2014 Vascular dementia (HCC) 09/30/2014 Vertebral compression fracture ([facility]) 11/04/2017 Vitamin D deficiency 09/19/2017 PAST SURGICAL HISTORY Procedure Laterality Date APPENDECTOMY remote CATARACT SURGERY, COMPLEX 2011, 2012 IOLs CHOLECYSTECTOMY 2004 laparoscopic CYSTOSCOPY 2008 PAST SURGICAL HISTORY OF 2007 prostate cancer external radiation rx PAST SURGICAL HISTORY OF surgery for PUD complications Billroth II FAMILY HISTORY Problem Relation Age of Onset COPD Mother COPD Father Breast Cancer Sister Cancer Brother Social History Tobacco Use Smoking status: Former Packs/day: 1.00 Years: 30.00 Additional pack years: 0.00 Total pack years: 30.00 Types: Cigarettes Smokeless tobacco: Never Substance Use Topics Alcohol use: No Drug use: No Reviewed current medications, allergies, past medical history, surgical history, family history and social history today. REVIEW OF SYSTEMS All other reviewed and negative other than HPI. HEALTH MAINTENANCE: Reviewed health maintenance issues today and recommended the following in detail. Advance Directive Discussion due on 11/18/2023 VITALS: BP 110/64 Pulse 64 Wt 72.6 kg (160 lb) BMI 20.54 kg/m Last 4 Encounter Wt Readings: Date: Wt: 01/27/2024 72.7 kg (160 lb 3.2 oz) 10/09/2023 75.6 kg (166 lb 9.6 oz) 10/08/2023 75.2 kg (165 lb 12.8 oz) 09/09/2023 76 kg (167 lb 9.6 oz) PHYSICAL EXAMINATION: General appearance: Well appearing, alert, in no acute distress, well-hydrated, well nourished. and mentally at baseline. Skin: Skin color, texture, turgor normal, no suspicious rashes or lesions Lungs: Lungs clear to auscultation. No wheezing, rhonchi, rales Heart:irreg. without murmur, gallop, or rubs. No ectopy Abdomen: Normal abdominal exam, Abdomen soft, non-tender. Bowel sounds normal. No masses, organomegaly Extremities: No deformities, edema, skin discoloration, clubbing or cyanosis. Good capillary refill. Musculoskeletal: No joint swelling, deformity, or tenderness ASSESSMENT/PLAN: 1. 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) - ICD9: 438.89, 345.90, ICD10: I69.398, G40.909 (primary diagnosis) - stable. 2. Parkinson's disease, unspecified whether dyskinesia present, unspecified whether manifestations fluctuate (HCC) - ICD9: 332.0, ICD10: G20.A1 - per neurology. Doing well. 3. Persistent atrial fibrillation (HCC) - ICD9: 427.31, ICD10: I48.19 - no changes. Continue to see cardiologyl 4. Hypertension, essential - ICD9: 401.9, ICD10: I10 - Controlled - Continue current medications 5. Congestive heart failure, unspecified HF chronicity, unspecified heart failure type (HCC) - ICD9: 428.0, ICD10: I50.9 - no signs of fluid overload. 6. Acute diastolic heart failure (HCC) - ICD9: 428.31, ICD10: I50.31 - BASIC METABOLIC PNL - MAGNESIUM BLD 7. Hypothyroidism, acquired - ICD9: 244.9, ICD10: E03.9 - stable. 8. Vascular dementia without behavioral disturbance, psychotic disturbance, mood disturbance, or anxiety, unspecified dementia severity (HCC) - ICD9: 290.40, ICD10: F01.50 - stable. 9. Compression fracture of lumbar vertebra with routine healing, unspecified lumbar vertebral level, subsequent encounter - ICD9: V54.17, ICD10: S32.000D No changes. 10. Folate deficiency - ICD9: 266.2, ICD10: E53.8 - recheck labs. - FOLATE SERUM Vu Pulido MD documented in this encounter [facility] 01-27-2024 History of Presen t illness Narrative ESTABLISHED PATIENT VISIT CHIEF COMPLAINT: Follow Up HISTORY OF PRESENT ILLNESS: Ramses Gilliland is a 83 year old male, BMI 20.57 kg/m2 with a PMH significant for and per last office visit with Lis Reyes PA-C on 10/08/23: 1. 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 Patient states at 1 point he stopped taking his Keppra and he had another seizure but unsure of when this occurred. Patient's states that he has had seizure since 2006. We will continue Keppra. 2. Parkinson's disease - ICD9: 332.0, ICD10: G20.A1 No side effects with Sinemet 25 mg/100 milligrams 3 times daily as well as Sinemet 50/200 milligrams CR. Notes that it did improve his gait, however no changes were observed today as patient has been off his medication for 5 days as he had confusions with what medications were going to be changed after his recent discharge from the hospital. Patient is eager to increase his medication as previously discussed. We will continue with CR Sinemet 50/200 milligrams at night and increase Sinemet 25/100 mg 3 times daily to 1.5 tablets 3 times a day. Discussed common side effects and patient is amenable. Patient was noted to have slightly low blood pressure at 105/71 today. Notes that he did have blood pressure medication changes after his recent discharge. Discussed that this may cause worsening lightheadedness and encouraged patient to check blood pressures daily after increasing this medication. Patient and agree and understand. No new symptoms with this or concerns. Discussed other conservative therapies that may be beneficial including exercise. Patient did try 1 round of physical [place] but states it was painful so he did not return. Educated patient and family on the importance of physical activity specifically core strengthening and preventing falls. Patient agrees and understands. Patient already has walker at home, discussed U step walker and they believe they have 1. Also encourage patient to drink water, does not do much water throughout the day and discussed that this may improve cognition, Parkinson symptoms, lightheadedness. 3. History of stroke - ICD9: V12.54, ICD10: Z86.73 4. Cerebral infarction, unspecified mechanism (HCC) - ICD9: 434.91, ICD10: I63.9 5. Vascular dementia without behavioral disturbance, psychotic disturbance, mood disturbance, or anxiety, unspecified dementia severity (HCC) - ICD9: 290.40, ICD10: F01.50 MRI of the brain did show evidence of multiple lacunar infarcts, patient with history of CVA in the past per patient report. Patient is compliant with aspirin and encouraged to keep taking his medication. Discussed risk factors that may increase risk for stroke including blood pressure, cholesterol, diabetes, smoking and physical inactivity, discussed these will be managed through primary care and patient and family agree and understand. 6. 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 Mild cognitive impairment - ICD9: 331.83, ICD10: G31.84 8. Vascular dementia without behavioral disturbance (HCC) - ICD9: 290.40, ICD10: F01.50 Patient's [place] was 12/30 today, stable from previous however took about 30 minutes to complete. MRI of the brain does show moderate to severe volume loss, slightly worse on the left. Possible degenerative process contribute to patient's symptoms as well as possible vascular component. Patient is not driving. Patient is able to take care of himself, bathe and feed himself. Lives with at home. They stopped the Sinemet as they ran out and also felt it was not making any difference. States he is also coughing at night and they feel it is always due to medications. Pt feels no changes since last visit. Was in hospital for fluid on the lungs. Pt states cognition unchanged. Never on a medication for cognition. No new seizures. He is not endorsing any new focal neurologic deficits. Handwriting is small per family. No falls since last seen. Independent at home. Sleep is good except if he takes a nap during the day might have some difficulties getting to bed. Minimal water intake. MODIFIED MOCA: Number repeat: 2/2 Sentence repeat: 2/2 Serial 7s: 11/20 Abstract: 11/19 Orientation: January, Saturday, VERONICA Starr... 02/21 Namin Delayed recall: 05 Clock drawin/3 (incorrect hands) REVIEW OF SYSTEMS GENERAL:No weight loss, malaise or fevers. HEENT:Negative for frequent or significant headaches, No changes in hearing or vision, no nose bleeds or other nasal problems RESPIRATORY: Positive for cough but denies shortness of breath. CARDIOVASCULAR: Negative for chest pain, katy palpitations. GASTROINTESTINAL: Negative for abdominal discomfort, blood in stools or black stools or change in bowel habits GENITOURINARY: No history of dysuria, frequency or incontinence NEUROLOGIC:See HPI. SKIN:Negative for lesions, rash, and itching. HEMATOLOGIC/LYMPHATIC/IMMUNOLOGI C:Negative for prolonged bleeding, bruising easily or swollen nodes. ENDOCRINE: Negative for cold or heat intolerance, polyuria, polydipsia and goiter. The remainder of the ROS was reviewed and is negative. LAB/IMAGING: Those performed since patient's last visit have been reviewed. WBC (k/uL) Date Value 09/09/2023 6.76 RBC (m/uL) Date Value 09/09/2023 4.90 Hemoglobin (g/dL) Date Value 09/09/2023 15.7 Hematocrit (%) Date Value 09/09/2023 48.2 MCV (fL) Date Value 09/09/2023 98.4 MCH (pg) Date Value 09/09/2023 32.0 MCHC (g/dL) Date Value 09/09/2023 32.6 RDW-CV (%) Date Value 09/09/2023 13.3 Platelet Count (k/uL) Date Value 09/09/2023 314 MPV (fL) Date Value 09/09/2023 12.2 Glucose (mg/dL) Date Value 09/09/2023 87 BUN (mg/dL) Date Value 09/09/2023 13 Creatinine (mg/dL) Date Value 09/09/2023 0.67 (L) Sodium (mmol/L) Date Value 09/09/2023 140 Potassium (mmol/L) Date Value 09/09/2023 4.2 Chloride (mmol/L) Date Value 09/09/2023 102 CO2 (mmol/L) Date Value 09/09/2023 22 Protein, Total (g/dL) Date Value 08/05/2023 7.1 Albumin (g/dL) Date Value 08/05/2023 4.1 Calcium, Total (mg/dL) Date Value 09/09/2023 9.5 Alkaline Phosphatase (U/L) Date Value 08/05/2023 113 Bilirubin, Total (mg/dL) Date Value 08/05/2023 0.7 AST (U/L) Date Value 08/05/2023 19 ALT (U/L) Date Value 08/05/2023 7 (L) MEDICATIONS: levETIRAcetam (KEPPRA) 750 mg tablet Take 1 tablet by mouth two times a day. furosemide (LASIX) 40 mg tablet Take 1 tablet by mouth two times a day. potassium chloride 20 mEq TbER Take 1 tablet by mouth two times a day. carbidopa-levodopa CR (SINEMET CR) 50-200 mg per tablet TAKE 1 TABLET AT 9PM (BEDTIME) metoprolol tartrate, short acting, (LOPRESSOR) 50 mg tablet Take 50 mg by mouth two times a day. levothyroxine (SYNTHROID) 25 mcg tablet Take 1 tablet by mouth once daily. Take on empty stomach. For thyroid. albuterol HFA (PROVENTIL HFA, VENTOLIN HFA) 90 mcg/actuation inhaler Inhale 2 Puffs as instructed every 6 hours as needed. aspirin, enteric coated (ASPIRIN, ENTERIC COATED) 81 mg EC tablet Take 81 mg by mouth once daily. cholecalciferol (VITAMIN D3) 1,000 unit tab tablet Take 2 capsules by mouth once daily. folic acid 1 mg tablet Take 1 tablet by mouth once daily. (Patient not taking: Reported on 01/27/2024) carbidopa-levodopa (SINEMET) 25-100 mg per tablet Take 1.5 tablet at 8AM, 1.5 tablet at Noon, and 1.5 tablet at 4PM. (Patient not taking: Reported on 01/27/2024) multivit-min/FA/lycopen/lutein (CENTRUM SILVER MEN ORAL) Take by mouth once daily. (Patient not taking: Reported on 01/27/2024) 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) 01/31/2015 Seizures (HCC) 2006 Tobacco abuse 09/30/2014 Vascular dementia (HCC) 09/30/2014 Vertebral compression fracture (HCC) 11/04/2017 Vitamin D deficiency 09/19/2017 FAMILY HISTORY Problem Relation Age of Onset COPD Mother COPD Father Breast Cancer Sister Cancer Brother SOCIAL HISTORY Social History Tobacco Use Smoking status: Former Packs/day: 1.00 Years: 30.00 Additional pack years: 0.00 Total pack years: 30.00 Types: Cigarettes Smokeless tobacco: Never Substance Use Topics Alcohol use: No Drug use: No PHYSICAL EXAMINATION BP 98/60 Pulse 96 Resp 16 Wt 72.7 kg (160 lb 3.2 oz) SpO2 98% BMI 20.57 kg/m GENERAL EXAM: General appearance: NAD, pleasant. HEENT: NC/AT, nasal congestion absent, no oral lesions, membranes moist. NECK: ROM nml. Lungs: CTA bilaterally. CV: RRR nl S1, S2. Extr: No cyanosis, clubbing or edema. Extremity pulses palpable and normal. Skin: Cool to touch. NEUROLOGICAL EXAM: General: Awake, alert, fluent, no dysarthria; MOCA as above. CN: PERRL, EOMI and without nystagmus, VFF to confrontation, facial sensation and strength are normal and symmetric, hearing is intact to finger rub bilaterally, palate and tongue movements are intact and symmetric. SCM and trapezius strength normal. Motor: Normal bulk and strength (4+/5) bilaterally (throughout extremities x4). increased tone in RUE. Coordination: FNF with mild dysmetria in RUE, SHANNEN impaired R>L with bradykin, HTS intact. No tremors. Sensation: Light touch, vibration, temperature intact throughout. No evidence of neglect. Gait: Difficulties rising out of chair without upper exts. Unsteady gait with retropulsion. Shuffling gait. Assessment and Plan: ASSESSMENT/PLAN: 1. Vascular dementia without behavioral disturbance, psychotic disturbance, mood disturbance, or anxiety, unspecified dementia severity (HCC) - ICD9: 290.40, ICD10: F01.50 (primary diagnosis) Patient with impaired cognition as above (consistent with prior MOCA). Not driving and per family independent at home. However, suspect minimize cognitive deficits based on exam and interview today. D/w them the possibility of starting medication such as Namenda but they decline any additional meds. 2. History of CVA (cerebrovascular accident) - ICD9: V12.54, ICD10: Z86.73 No new recs. Continue ASA daily. Chol monitoring through PCP and statin as needed. BP goal <140/90. Glucose goal <140. 3. Parkinson's disease, unspecified whether dyskinesia present, unspecified whether manifestations fluctuate (HCC) - ICD9: 332.0, ICD10: G20.A1 Patient still with symptoms concerning for PD. Unfortunately due to compliance issues with Sinemet, I have never had the opportunity to evaluate the patient on Sinemet to see if symptoms improved. They are not wanting to restart. Thus, at this point would also d/c Sinemet CR at bedtime. Encouraged exercise and discussed fall precautions. They are not interested in PT. 4. 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 Continue Keppra 750mg BID. 6. Hypotension, unspecified hypotension type - ICD9: 458.9, ICD10: I95.9 Low BP in office. Question if due to Output > Input with pt on diuretic (Lasix 80mg daily) and minimal fluid intake per history provided. Pt to see Dr. Pulido this afternoon. Encouraged pt to keep that appointment for possible adjustments in diuretic. Vu Garcia MD I spent a total of 42 minutes on the date of the service which included preparing to see the patient, [id number] patient care, completing clinical documentation, obtaining and/or reviewing separately obtained history, performing a medically appropriate examination, counseling and educating the patient/family/caregiver, ordering medications, tests, or procedures, and communicating results to the patient/family/caregiver. documented in this encounter [facility] 01-14-2024 History of Presen t illness Narrative [facility] NURSE - CHART REVIEW Provider [facility] Action Chart review 08/24/23 [facility] ED for shortness of breath. Seen 6 days prior and Zithromax and Tessalon Perles ordered and told of pneumonia dx. Doxycycline frequency changed to 2x/day. DC home. 08/30-09/01/23 [facility] ED to [facility] for continued and worsening SOB and JACKSON. H/O CHF and pulmonary HTN. No supp oxygen required, Pt reports cough with clear sputum, JACKSON and SOB. CXR: Mild pleural effusions with increased bibasilar atelectasis or pneumonia. Doxycycline reordered for 100mg po every 12 hours. EKG: noted to have atrial fibrillation. His metoprolol was increased to 50 mg twice a day. Patient desaturated to 88% while ambulating. Patient was given 40 mg of IV Lasix. DC home with PCP and PULM f/u. Pt identified by name and . Reason for Review: Payor request Patient Attributed To: KYREE Payer: ELIZABETH Chart Review For: Utilization: ED Admission Total Patient High CostTotal Patient High Cost {HIGH COST:156071) Quality measure review Payor request for assistance Action Taken: No action needed Radha Bynum RN January 14, 2024 3:26 PM documented in this encounter [facility] 10-09-2023 History of Presen t illness Narrative Patient presents with: Follow Up HPI: Patient presents today for office visit for follow up. No weight increase. Stable. Continues on Furosemide and potassium. Denies chest pain No new or worsening shortness of breath Saw cardiology Riley Munson with [facility] on 09/30/23. Repeat chest xray was better. Shows some scarring in the bases. Canceled appt with Pulmonary Saw Neuro yesterday. They are continuing to adjsut his sinemet. Reviewed his recent labs. Will start him on folic acid. See previous ov: Weight has come down. We had increased his lasix and potassium. Denies chest pain and shortness of breath Was able to review old records. Can't get into pulmonary at [facility] until October. Has an appt to see cardiology. Still mild cough. No wheeze. Denies shortness of breath. No fever or chills. Feels much better. No edema. Appetite is good. They are wondering if they still need the appt for pulmonary. If so, would like to change. I suspect CHF is the culprit of his issues so we can recheck his chest xray first. Component Latest Ref Rng & Units 10/08/2023 Syphilis Screen Result Nonreactive Nonreactive Syphilis Interpretation Cannot exclude recent Treponemal infection if specimen collected within 7-10 days after appearance of suspect lesions or 2-3 weeks after an exposure. Clinical correlation is required. TSH 0.270 - 4.200 mIU/L 2.960 Vitamin B12 232 - 1,245 pg/mL 430 Folate >4.7 ng/mL 4.1 (L) Component Latest Ref Rng & Units 09/02/2023 09/09/2023 WBC 3.70 - 11.00 k/uL 6.76 RBC 4.20 - 6.00 m/uL 4.90 Hemoglobin 13.0 - 17.0 g/dL 15.7 Hematocrit 39.0 - 51.0 % 48.2 MCV 80.0 - 100.0 fL 98.4 MCH 26.0 - 34.0 pg 32.0 MCHC 30.5 - 36.0 g/dL 32.6 RDW-CV 11.5 - 15.0 % 13.3 Platelet Count 150 - 400 k/uL 314 MPV 9.0 - 12.7 fL 12.2 Neut% % 58.8 Abs Neut (ANC) 1.45 - 7.50 k/uL 3.97 Lymph% % 24.1 Abs Lymph 1.00 - 4.00 k/uL 1.63 Keith% % 15.1 Abs Keith <0.87 k/uL 1.02 (H) Eosin% % 1.3 Abs Eosin <0.46 k/uL 0.09 Baso% % 0.4 Abs Baso <0.11 k/uL 0.03 Immature Gran % % 0.3 IMMATURE GRANS (ABS) <0.10 k/uL <0.03 NRBC /100 WBC 0.0 Absolute nRBC <0.01 k/uL <0.01 DTYPE Auto Glucose 74 - 99 mg/dL 96 87 BUN 9 - 24 mg/dL 18 13 Creatinine 0.73 - 1.22 mg/dL 0.64 (L) 0.67 (L) Sodium 136 - 144 mmol/L 138 140 Potassium 3.7 - 5.1 mmol/L 4.8 4.2 Chloride 97 - 105 mmol/L 100 102 CO2 22 - 30 mmol/L 27 22 Anion Gap 9 - 18 mmol/L 11 16 Calcium 8.5 - 10.2 mg/dL 9.8 9.5 eGFR >=60 mL/min/1.73m 95 93 NT Pro BNP <450 pg/mL 956 (H) 707 (H) MEDICATIONS: Current Outpatient Medications Medication Sig carbidopa-levodopa (SINEMET) 25-100 mg per tablet Take 1.5 tablet at 8AM, 1.5 tablet at Noon, and 1.5 tablet at 4PM. furosemide (LASIX) 40 mg tablet Take 1 tablet by mouth two times a day. potassium chloride 20 mEq TbER Take 1 tablet by mouth two times a day. carbidopa-levodopa CR (SINEMET CR) 50-200 mg per tablet TAKE 1 TABLET AT 9PM (BEDTIME) metoprolol tartrate, short acting, (LOPRESSOR) 50 mg tablet Take 50 mg by mouth two times a day. levothyroxine (SYNTHROID) 25 mcg tablet Take 1 tablet by mouth once daily. Take on empty stomach. For thyroid. albuterol HFA (PROVENTIL HFA, VENTOLIN HFA) 90 mcg/actuation inhaler Inhale 2 Puffs as instructed every 6 hours as needed. levETIRAcetam (KEPPRA) 750 mg tablet Take 1 tablet by mouth twice daily. aspirin, enteric coated (ASPIRIN, ENTERIC COATED) 81 mg EC tablet Take 81 mg by mouth once daily. cholecalciferol (VITAMIN D3) 1,000 unit tab tablet Take 2 capsules by mouth once daily. multivit-min/FA/lycopen/lutein (CENTRUM SILVER MEN ORAL) Take by mouth once daily. No current facility-administered medications for this visit. ALLERGIES: ALLERGIES No Known Allergies 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 10/02/2017 Dx 09/2017 and started on fosamax Prostate cancer (HCC) 2007 44 radiation treatments-moderately differentiated adenocarcinoma 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) 01/31/2015 Seizures (HCC) 2006 Tobacco abuse 09/30/2014 Vascular dementia (HCC) 09/30/2014 Vertebral compression fracture (HCC) 11/04/2017 Vitamin D deficiency 09/19/2017 PAST SURGICAL HISTORY Procedure Laterality Date APPENDECTOMY remote CATARACT SURGERY, COMPLEX 2011, 2012 IOLs CHOLECYSTECTOMY 2005 laparoscopic CYSTOSCOPY 2008 PAST SURGICAL HISTORY OF 2007 prostate cancer external radiation rx PAST SURGICAL HISTORY OF surgery for PUD complications [place] II FAMILY HISTORY Problem Relation Age of Onset COPD Mother COPD Father Breast Cancer Sister Cancer Brother Social History Tobacco Use Smoking status: Former Packs/day: 1.00 Years: 30.00 Additional pack years: 0.00 Total pack years: 30.00 Types: Cigarettes Smokeless tobacco: Never Substance Use Topics Alcohol use: No Drug use: No Reviewed current medications, allergies, past medical history, surgical history, family history and social history today. REVIEW OF SYSTEMS All other reviewed and negative other than HPI. HEALTH MAINTENANCE: Reviewed health maintenance issues today and recommended the following in detail. RSV Vaccine(1 - 1-dose 60+ series) Never done Advance Directive Discussionhas liv, his daughter. VITALS: BP 102/65 Pulse 64 Ht 188 cm (6' 2) Wt 75.6 kg (166 lb 9.6 oz) BMI 21.39 kg/m Last 4 Encounter Wt Readings: Date: Wt: 10/08/2023 75.2 kg (165 lb 12.8 oz) 09/09/2023 76 kg (167 lb 9.6 oz) 09/02/2023 79.4 kg (175 lb) 08/05/2023 83.5 kg (184 lb) PHYSICAL EXAMINATION: General appearance: Well appearing, alert, in no acute distress, well-hydrated, well nourished. Skin: Skin color, texture, turgor normal, no suspicious rashes or lesions Head: Normocephalic, no masses, lesions, tenderness or abnormalities Lungs: Lungs clear to auscultation. No wheezing, rhonchi, rales Heart: slightly irregular. Rate stable. Abdomen: Normal abdominal exam, Abdomen soft, non-tender. Bowel sounds normal. No masses, organomegaly Extremities: No deformities, edema, skin discoloration, clubbing or cyanosis. Good capillary refill. ASSESSMENT/PLAN: 1. Acute diastolic heart failure (HCC) - ICD9: 428.31, ICD10: I50.31 (primary diagnosis) - stable. No signs of fluid overload 2. Parkinson's disease, unspecified whether dyskinesia present, unspecified whether manifestations fluctuate - ICD9: 332.0, ICD10: G20.A1 - per neuro 3. Congestive heart failure, unspecified HF chronicity, unspecified heart failure type (HCC) - ICD9: 428.0, ICD10: I50.9 - doing well. 4. Hypertension, essential - ICD9: 401.9, ICD10: I10 - Controlled - Continue current medications 5. Hypothyroidism, acquired - ICD9: 244.9, ICD10: E03.9 Stable. 6. Vascular dementia without behavioral disturbance, psychotic disturbance, mood disturbance, or anxiety, unspecified dementia severity (HCC) - ICD9: 290.40, ICD10: F01.50 - continue asa a day. 7. Paroxysmal atrial fibrillation (HCC) - ICD9: 427.31, ICD10: I48.0 -not an 8. Persistent atrial fibrillation (HCC) - ICD9: 427.31, ICD10: I48.19 - not an anticoagulation due to fall risk , continue meds and asa. 9. Folate deficiency - ICD9: 266.2, ICD10: E53.8 - add folate and check labs in one month. - FOLATE SERUM - FOLIC ACID 1 MG TABLET Vu Pulido MD documented in this encounter [facility] 10-08-2023 Instructions Silva Reyes PA-C - 10/08/2023 1:14 PM EST Increase sinemet 25/100mg to 1.5 tablets three times a day at 8am, noon and 4PM. Then take Sinemet 50/200mg CR at bedtime. Take blood pressure daily and if you get lightheaded. This medication can cause lightheadedness, low blood pressure, hallucinations, and impulsivity Increase water to 60 ounces a day Laboratory studies Exercise regularly, increase brain exercises with puzzles, reading and socialization Continue Keppra Follow up in 3-4 months Continue aspirin therapy for stroke prevention, further recommendations noted below. General guidelines for stroke risk factor management, if present Hypertension Target blood pressure <140/90, <130/80 for high risk; normal is 120/80 Hyperlipidemia Target total cholesterol < 200 Target LDL <100, < 70 for high risk Target HDL >45 for men, >55 for women Target triglycerides <150 Diabetes Target HgbA1c <7% Smoking Target is smoking cessation Physical inactivity Target is exercise at least 3 times per week Target waist circumference, in inches is <35 for women and <40 for men documented in this encounter [facility] 10-08-2023 History of Presen t illness Narrative ESTABLISHED PATIENT VISIT Last visit: 07/15/[address] Garcia ASSESSMENT/PLAN: 1. Parkinson's disease (HCC) - ICD9: 332.0, ICD10: G20 (primary diagnosis) Patient with multiple endorsed signs and symptoms as well as exam findings suggestive of Parkinsonism vs possible Park + syndrome such as PSP given lack of tremor and noted impaired vertical eye movements today on exam. Dx d/w pt and his in detail and explained that this would be a clinical dx. I do believe that this is more than a conditioning issue. I also suspect that Requip 1mg TID is inadequate in treating symptoms and increasing dose would in turn increase risk of side effects. Thus, I am again asking patient be placed on trial of Sinemet 25/100mg TID at 8AM, Noon and 4PM followed by Sinemet CR dose of 50/200 at bedtime (~9PM). SE and ADRs reviewed with pt and his today. I would encourage that he continue with PT. Again, it appears pt was supposed to follow up with movement disorders center and if still questionning diagnosis explained another referral can be made. Also, at time of next visit, if tolerating Sinemet, not that a higher dose may still be necessary. Finally, I explained ddx which would also include Parkinson's due to vascular insults or NPH (denies incontinence). With no recent imaging in our records except a report from a CT scan 7 years ago at OSH showing per report chronic lisa lacunar infarcts, recommend new MRI brain be completed with which they agree. 2. 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 Both pt and limited historians. Unclear seizure history, as to workup and how dx confirmed. On Keppra for years. Thus, will continue for now. 3. History of stroke - ICD9: V12.54, ICD10: Z86.73 Again, as with above, limited records. No changes to therapy at this time. MRI brain above. 4. Vascular dementia without behavioral disturbance, psychotic disturbance, mood disturbance, or anxiety, unspecified dementia severity (HCC) - ICD9: 290.40, ICD10: F01.50 Unfortunately given other dx, was not available to evaluate at this visit. Will need full MOCA in future. No changes in meds given we are changing PD meds today. Vu Garcia MD CHIEF COMPLAINT: follow up HISTORY OF PRESENT ILLNESS: Ramses Gilliland is a 83 year old male, BMI 21.29 kg/m2 with a PMH significant for PD, HTN, A fib, CHF, COPD, fatty liver, CVA, syncope. Saw Dr. Garcia on 07/15/23 for concerns of parkinons and dementia. Hx of seizures and CVA. Multiple falls. Concerned for deconditioning as well. Stop ropinirole and start a trial of sinemet and sinemet CR, encouraged PT. MRI of the brain ordered. Continued keppra. Obtain MoCA at next appointment. MRI showed small infarcts and lacunar infarcts, moderate to severe volume loss. Patient presents with for follow-up appointment. Patient notes that has been doing well since last appointment, notes that his gait has improved since being on the Sinemet. However, there was confusion about his medications and he is been off of his Sinemet 25/100 mg 3 times daily for the last 5 days. No lightheadedness, side effects with the medication including hallucinations or impulsivity. Tolerated the medication well. Was recently admitted but this was for CHF exacerbation. Patient denies any falls since last appointment, uses a walker at home. Asked what type of walker and states he has 3 different types, unsure if one of them is used to. No new concerns today. MRI of the brain did show multiple lacunar infarcts, nothing acute, patient compliant with his aspirin. Notes that he is sleeping well without any issue. Is not very active and does not do any brain exercises throughout the day. Was instructed to try physical therapy, tried 1 session and states that it was painful so he is not returned. REVIEW OF SYSTEMS GENERAL:No weight loss, malaise or fevers. HEENT:Negative for frequent or significant headaches, No changes in hearing or vision, no nose bleeds or other nasal problems NECK:Negative for lumps, goiter, pain and significant neck swelling RESPIRATORY: Negative for cough, wheezing or shortness of breath. CARDIOVASCULAR: Negative for chest pain, leg swelling or palpitations. GASTROINTESTINAL: Negative for abdominal discomfort, blood in stools or black stools or change in bowel habits GENITOURINARY: No history of dysuria, frequency or incontinence MUSCULOSKELETAL: Negative for joint pain or swelling, back pain or muscle pain. NEUROLOGIC:Negative for focal numbness or weakness, headaches and dizziness or syncope, vision changes, speech/languag changes - EXCEPT that as per HPI above. SKIN:Negative for lesions, rash, and itching. PSYCHIATRIC: Negative for sleep disturbance, mood disorder and recent psychosocial stressors. HEMATOLOGIC/LYMPHATIC/IMMUNOLOGI C:Negative for prolonged bleeding, bruising easily or swollen nodes. ENDOCRINE: Negative for cold or heat intolerance, polyuria, polydipsia and goiter. The remainder of the ROS was reviewed and is negative. LAB/IMAGING: Those performed since patient's last visit have been reviewed. MRI brain 09/16/23 IMPRESSION: Multiple remote infarcts and moderate parenchymal volume loss for age. No evidence of an acute intracranial process or intracranial mass. MEDICATIONS: furosemide (LASIX) 40 mg tablet Take 1 tablet by mouth two times a day. potassium chloride 20 mEq TbER Take 1 tablet by mouth two times a day. metoprolol tartrate, short acting, (LOPRESSOR) 50 mg tablet Take 50 mg by mouth two times a day. levothyroxine (SYNTHROID) 25 mcg tablet Take 1 tablet by mouth once daily. Take on empty stomach. For thyroid. albuterol HFA (PROVENTIL HFA, VENTOLIN HFA) 90 mcg/actuation inhaler Inhale 2 Puffs as instructed every 6 hours as needed. levETIRAcetam (KEPPRA) 750 mg tablet Take 1 tablet by mouth twice daily. aspirin, enteric coated (ASPIRIN, ENTERIC COATED) 81 mg EC tablet Take 81 mg by mouth once daily. cholecalciferol (VITAMIN D3) 1,000 unit tab tablet Take 2 capsules by mouth once daily. multivit-min/FA/lycopen/lutein (CENTRUM SILVER MEN ORAL) Take by mouth once daily. carbidopa-levodopa CR (SINEMET CR) 50-200 mg per tablet TAKE 1 TABLET AT 9PM (BEDTIME) carbidopa-levodopa (SINEMET) 25-100 mg per tablet Take 1 tablet at 8AM, 1 tablet at Noon, and 1 tablet at 4PM. 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) 01/31/2015 Seizures ([facility]) 2006 Tobacco abuse 09/30/2014 Vascular dementia ([facility]) 09/30/2014 Vertebral compression fracture ([facility]) 11/04/2017 Vitamin D deficiency 09/19/2017 FAMILY HISTORY Problem Relation Age of Onset COPD Mother COPD Father Breast Cancer Sister Cancer Brother SOCIAL HISTORY Social History Tobacco Use Smoking status: Former Packs/day: 1.00 Years: 30.00 Additional pack years: 0.00 Total pack years: 30.00 Types: Cigarettes Smokeless tobacco: Never Substance Use Topics Alcohol use: No Drug use: No PHYSICAL EXAMINATION BP 105/71 Pulse 61 Resp 16 Wt 75.2 kg (165 lb 12.8 oz) SpO2 98% BMI 21.29 kg/m MoCA: 11/16 Visuospatial: 2/5 (took 10 minutes to complete) Namin/3 Attention: 4/6 Language: 0/3 Abstraction: 0/2 Delayed recall: 0/5 Orientation: 4/6 Patient laughing throughout GENERAL EXAM: General appearance: NAD, pleasant. HEENT: NC/AT, nasal congestion absent, no oral lesions, membranes moist. NECK: No masses, supple. Lungs: Breathing comfortably Extr: Moves all extremities without difficulty Skin: Cool to touch. No rash. NEUROLOGICAL EXAM: General: Awake, alert, oriented x3 (person,place,time), speech fluent, no dysarthria; comprehension, naming, repetition intact. See MoCA above CN: PERRL, EOMI and without nystagmus, VFF to confrontation, facial sensation and strength are normal and symmetric, hearing is intact to conversation, palate and tongue movements are intact and symmetric. SCM and trapezius strength normal. Motor: Normal tone, bulk and strength (5/5) bilaterally (throughout extremities x4). Reflexes: 2/4 and symmetric, plantar stimulation is flexor. Coordination: FNF intact. No tremors. Sensation: Absent vibration to the great toe bilaterally, decreased temperature to the feet and legs. Gait: Shuffling gait, stooped posture. Had difficulty turning, almost fell with this as his leg seem to get stuck Assessment and Plan: ASSESSMENT/PLAN: 1. 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 Patient states at 1 point he stopped taking his Keppra and he had another seizure but unsure of when this occurred. Patient's states that he has had seizure since 2006. We will continue Keppra. 2. Parkinson's disease - ICD9: 332.0, ICD10: G20.A1 No side effects with Sinemet 25 mg/100 milligrams 3 times daily as well as Sinemet 50/200 milligrams CR. Notes that it did improve his gait, however no changes were observed today as patient has been off his medication for 5 days as he had confusions with what medications were going to be changed after his recent discharge from the hospital. Patient is eager to increase his medication as previously discussed. We will continue with CR Sinemet 50/200 milligrams at night and increase Sinemet 25/100 mg 3 times daily to 1.5 tablets 3 times a day. Discussed common side effects and patient is amenable. Patient was noted to have slightly low blood pressure at 105/71 today. Notes that he did have blood pressure medication changes after his recent discharge. Discussed that this may cause worsening lightheadedness and encouraged patient to check blood pressures daily after increasing this medication. Patient and agree and understand. No new symptoms with this or concerns. Discussed other conservative therapies that may be beneficial including exercise. Patient did try 1 round of physical [place] but states it was painful so he did not return. Educated patient and family on the importance of physical activity specifically core strengthening and preventing falls. Patient agrees and understands. Patient already has walker at home, discussed U step walker and they believe they have 1. Also encourage patient to drink water, does not do much water throughout the day and discussed that this may improve cognition, Parkinson symptoms, lightheadedness. 3. History of stroke - ICD9: V12.54, ICD10: Z86.73 4. Cerebral infarction, unspecified mechanism (HCC) - ICD9: 434.91, ICD10: I63.9 5. Vascular dementia without behavioral disturbance, psychotic disturbance, mood disturbance, or anxiety, unspecified dementia severity (HCC) - ICD9: 290.40, ICD10: F01.50 MRI of the brain did show evidence of multiple lacunar infarcts, patient with history of CVA in the past per patient report. Patient is compliant with aspirin and encouraged to keep taking his medication. Discussed risk factors that may increase risk for stroke including blood pressure, cholesterol, diabetes, smoking and physical inactivity, discussed these will be managed through primary care and patient and family agree and understand. 6. 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 Mild cognitive impairment - ICD9: 331.83, ICD10: G31.84 8. Vascular dementia without behavioral disturbance (HCC) - ICD9: 290.40, ICD10: F01.50 Patient's [place] was 12/30 today, stable from previous however took about 30 minutes to complete. MRI of the brain does show moderate to severe volume loss, slightly worse on the left. Possible degenerative process contribute to patient's symptoms as well as possible vascular component. Patient is not driving. Patient is able to take care of himself, bathe and feed himself. Lives with at home. Patient and agreeable to treatment plan of care at this time, questions were answered. Patient follow-up with Dr. Garcia in 3 to 4 months. Silva Reyes PA-C I spent a total of 55 minutes on the date of the service which included preparing to see the patient, [id number] patient care, completing clinical documentation, obtaining and/or reviewing separately obtained history, performing a medically appropriate examination, counseling and educating the patient/family/caregiver, and ordering medications, tests, or procedures. This document has been created with the use of voice recognition technology. It may contain inaccuracies: (e.g. misspellings, inaccurate syntax or word sense) that have escaped review. There is no data to display for this encounter documented in this encounter [facility] 09-16-2023 History of Presen t illness Narrative Radiology Service Progress Note PATIENT NAME: Ramses Gilliland DATE OF SERVICE: September 16, 2023 TIME: 10:20 AM PATIENT IDENTITY VERIFICATION COMPLETED USING TWO (2) IDENTIFIERS: Name and Date of confirmed by patient verbally. FALL SCREENING: Has the patient had 2 falls in the last year or 1 fall with injury or currently using an Ambulatory Assistive Device (Walker, Cane, Wheelchair, Crutches, etc.)? Yes, Patient High Risk for Falls What interventions were put in place to prevent falls during this visit? Instructed Patient to Call for Help if Needed, Offered Assistance with Transfers/Clothing, Instructed Patient to Remain Seated (Not on Exam Table) Until Exam, and Increased Observations by Caregivers PATIENT GENDER DATA: Male PATIENT RELEVANT IMPLANT DATA REVIEWED: Yes RADIOLOGY DEPARTMENT: MR; Exam(s) Completed: Head: Routine Brain PERIPHERAL IV DATA: Not applicable SIGNED BY: RT Alex(R) September 16, 2023 10:20 AM documented in this encounter [facility] 09-13-2023 Miscellaneous Notes Patient has been identified by name and date of : Yes Last office visit in this department: 09/09/2023 RX INSTRUCTIONS: Patient aware RX will be sent to pharmacy. No need to notify patient. Patient phones requesting refills as follows: Requested Prescriptions Pending Prescriptions Disp Refills furosemide (LASIX) 40 mg tablet Sig: Take 1 tablet by mouth two times a day. Please review and advise. June López documented in this encounter [facility] 10-25-2023 Miscellaneous Notes Patients stopped in the office and message relayed. She verbalized understanding. Rachelle Herman Left message to return call to office. Matthew Chaparro LPN Let them know chest xray is better and shows some scarring in the bases. . Labs are improving. Continue current meds. We can hold on pulmonary but follow up with cardiology and keep next follow up documented in this encounter [facility] 09-09-2023 History of Presen t illness Narrative Radiology Service Progress Note PATIENT NAME: Ramses Gilliland DATE OF SERVICE: September 09, 2023 TIME: 2:43 PM PATIENT IDENTITY VERIFICATION COMPLETED USING TWO (2) IDENTIFIERS: Name and Date of confirmed by patient verbally. FALL SCREENING: Has the patient had 2 falls in the last year or 1 fall with injury or currently using an Ambulatory Assistive Device (Walker, Cane, Wheelchair, Crutches, etc.)? Yes, Patient High Risk for Falls What interventions were put in place to prevent falls during this visit? Instructed Patient to Call for Help if Needed, Offered Assistance with Transfers/Clothing, and Increased Observations by Caregivers PATIENT GENDER DATA: Male PATIENT RELEVANT IMPLANT DATA REVIEWED: Yes RADIOLOGY DEPARTMENT: General X-ray: Exam(s) Completed: Chest X-Ray PERIPHERAL IV DATA: Not applicable SIGNED BY: RT Tamica(R) September 09, 2023 2:43 PM documented in this encounter [facility] 09-09-2023 History of Presen t illness Narrative Patient presents with: Hospital F/U HPI: Patient presents today for office visit for 1 week follow up from hospital follow up OV on 09/02/23. Weight has come down. We had increased his lasix and potassium. Denies chest pain and shortness of breath Was able to review old records. Can't get into pulmonary at [facility] until October. Has an appt to see cardiology. Still mild cough. No wheeze. Denies shortness of breath. No fever or chills. Feels much better. No edema. Appetite is good. They are wondering if they still need the appt for pulmonary. If so, would like to change. I suspect CHF is the culprit of his issues so we can recheck his chest xray first. See previous OV: Patient presents today for office visit for hospital follow up. Presented late to today's appt. Just discharged yesterday so still compiling info. Has only had limited access to records and will need to review. Apparently was seen several times at ER or urgent care for cough per . Was thought to be related to his a fib and had a higher rate and chf? Was referred to cardiology and pulmonary but has not yet called for appts. He has lost weight since diureses in the hospital. Seen in [facility] on 08/30/23 Discharged 09/01/23 Dx with A-fib and pleural effusion. Metoprolol increased from 25 mg BID to 50 mg BID. Not anticoagulated due to Hx of falls with parkinson's. Abx stopped. CXR neg for pneumonia. Needs kidney function and potassium rechecked Still coughing with chest congestion Denies chest pain Pos for SOB but at level of discharge. Component Latest Ref Rng & Units 09/02/2023 Glucose 74 - 99 mg/dL 96 BUN 9 - 24 mg/dL 18 Creatinine 0.73 - 1.22 mg/dL 0.64 (L) Sodium 136 - 144 mmol/L 138 Potassium 3.7 - 5.1 mmol/L 4.8 Chloride 97 - 105 mmol/L 100 CO2 22 - 30 mmol/L 27 Anion Gap 9 - 18 mmol/L 11 Calcium 8.5 - 10.2 mg/dL 9.8 eGFR >=60 mL/min/1.73m 95 NT Pro BNP <450 pg/mL 956 (H) MEDICATIONS: Current Outpatient Medications Medication Sig furosemide (LASIX) 40 mg tablet Take 1 tablet by mouth two times a day. potassium chloride 20 mEq TbER Take 1 tablet by mouth two times a day. carbidopa-levodopa CR (SINEMET CR) 50-200 mg per tablet TAKE 1 TABLET AT 9PM (BEDTIME) metoprolol tartrate, short acting, (LOPRESSOR) 50 mg tablet Take 50 mg by mouth two times a day. levothyroxine (SYNTHROID) 25 mcg tablet Take 1 tablet by mouth once daily. Take on empty stomach. For thyroid. albuterol HFA (PROVENTIL HFA, VENTOLIN HFA) 90 mcg/actuation inhaler Inhale 2 Puffs as instructed every 6 hours as needed. carbidopa-levodopa (SINEMET) 25-100 mg per tablet Take 1 tablet at 8AM, 1 tablet at Noon, and 1 tablet at 4PM. levETIRAcetam (KEPPRA) 750 mg tablet Take 1 tablet by mouth twice daily. aspirin, enteric coated (ASPIRIN, ENTERIC COATED) 81 mg EC tablet Take 81 mg by mouth once daily. cholecalciferol (VITAMIN D3) 1,000 unit tab tablet Take 2 capsules by mouth once daily. multivit-min/FA/lycopen/lutein (CENTRUM SILVER MEN ORAL) Take by mouth once daily. No current facility-administered medications for this visit. 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) 01/31/2015 Seizures (HCC) 2007 Tobacco abuse 09/30/2014 Vascular dementia (HCC) 09/30/2014 Vertebral compression fracture (HCC) 11/04/2017 Vitamin D deficiency 09/19/2017 PAST SURGICAL HISTORY Procedure Laterality Date APPENDECTOMY remote CATARACT SURGERY, COMPLEX 2011, 2012 IOLs CHOLECYSTECTOMY 2005 laparoscopic CYSTOSCOPY 2009 PAST SURGICAL HISTORY OF 2008 prostate cancer external radiation rx PAST SURGICAL HISTORY OF 1980s surgery for PUD complications [place]th II FAMILY HISTORY Problem Relation Age of Onset COPD Mother COPD Father Breast Cancer Sister Cancer Brother Social History Tobacco Use Smoking status: Former Packs/day: 1.00 Years: 30.00 Additional pack years: 0.00 Total pack years: 30.00 Types: Cigarettes Smokeless tobacco: Never Substance Use Topics Alcohol use: No Drug use: No Reviewed current medications, allergies, past medical history, surgical history, family history and social history today. REVIEW OF SYSTEMS All other reviewed and negative other than HPI. HEALTH MAINTENANCE: Reviewed health maintenance issues today and recommended the following in detail. RSV Vaccine(1 - 1-dose 60+ series) Never done Advance Directive Discussion Never done VITALS: BP 118/86 Pulse 65 Ht 188 cm (6' 2) Wt 76 kg (167 lb 9.6 oz) SpO2 98% BMI 21.52 kg/m Last 4 Encounter Wt Readings: Date: Wt: 09/02/2023 79.4 kg (175 lb) 08/05/2023 83.5 kg (184 lb) 07/15/2023 85.2 kg (187 lb 12.8 oz) 05/16/2023 85.6 kg (188 lb 12.8 oz) PHYSICAL EXAMINATION: General appearance: Well appearing, alert, in no acute distress, well-hydrated, well nourished. and looks much more comfortable this week. No cough. Breathing well. Skin: Skin color, texture, turgor normal, no suspicious rashes or lesions Back: Normal exam Lungs: lungs reveal decreased breath sounds in left, normal breath sounds on the right. Heart: RRR without murmur, gallop, or rubs. No ectopy Abdomen: Normal abdominal exam, Abdomen soft, non-tender. Bowel sounds normal. No masses, organomegaly Extremities: No deformities, edema, skin discoloration, clubbing or cyanosis. Good capillary refill. Musculoskeletal: No joint swelling, deformity, or tenderness ASSESSMENT/PLAN: 1. Congestive heart failure, unspecified HF chronicity, unspecified heart failure type (HCC) - ICD9: 428.0, ICD10: I50.9 (primary diagnosis) - Red flags for re-assessment reviewed with patient in detail. - clinically is improving. See cardiology. Continue lasix and potassium. Daily weights. - XR CHEST 2V FRONTAL/LAT - NT PRO BNP 2. Pleural effusion - ICD9: 511.9, ICD10: J90 - if still shows significant effusion, will need to see pulmonary. Continue to see cardiology. - XR CHEST 2V FRONTAL/LAT - NT PRO BNP - XR CHEST 2V FRONTAL/LAT 3. Hypertension, essential - ICD9: 401.9, ICD10: I10 - Controlled - Continue current medications - BASIC METABOLIC PNL - CBC + DIFF 4. Acute diastolic heart failure (HCC) - ICD9: 428.31, ICD10: I50.31 - as above. - XR CHEST 2V FRONTAL/LAT 5. Hypothyroidism, acquired - ICD9: 244.9, ICD10: E03.9 - TSH BLD 6. Vascular dementia without behavioral disturbance, psychotic disturbance, mood disturbance, or anxiety, unspecified dementia severity (HCC) - ICD9: 290.40, ICD10: F01.50 - continue to follow. Vu Pulido MD documented in this encounter [facility] 09-03-2023 Miscellaneous Notes Patient's notified of results and provider's instructions. Patient's verbalizes understanding. states that she thinks she will have enough medication. will give staff a call back if she does not. Sonam Hernadez RN Left message for pt to contact office. Taya Guerin LPN His heart failure test is up but kidney functions are ok. We currently have him taking 40 mg of lasix once a day and k once a day. Increase both to bid for the next week. Keep follow up next week. Do they have enough meds to last until seen? Call if any worsening shortness of breath or swelling. documented in this encounter [facility] 09-02-2023 Miscellaneous Notes Pt would like a 90 day supply sent. Deloris Mc LPN documented in this encounter [facility] 09-01-2023 Discharge summary Note Date/Time September 01, 2023 10:55am [facility] Medical Records Department [address] [place] [address] Discharge Summary 09/01/23 1054 MR#: [id number] Acct: [id number] Name: RAMSES GILLILAND Rep #:[id number] : 1940 83 From: Lata Sagastume DO PCP: Dr. Vu Pulido MD Status:ADM I NO Location: [place] [address] Providers Date of Admission: 08/30/23 Date of Discharge: 09/01/23 Primary Care Physician: Dr. Vu Pulido MD Reason For Visit: CHF Diagnosis Discharge Diagnosis (1) Paroxysmal atrial fibrillation with rapid ventricular response: Status: Acute Code(s): I48.0 - Paroxysmal atrial fibrillation (2) Shortness of breath: Status: Acute Code(s): R06.02 - Shortness of breath (3) Pleural effusion: Status: Acute Code(s): J90 - Pleural effusion, not elsewhere classified (4) Elevated troponin I level: Status: Acute Code(s): R79.89 - Other specified abnormal findings of blood chemistry Plan Shortness of breath/cough--> suspect multifactorial -EKG was overall unremarkable other than for small right pleural effusion however CTA of the chest shows definitive bilateral effusions with the right side being greater as well as evidence of COPD in the lung parenchyma that is visible -Final report is pending -Effusions appear stable when compared to previous CTA from 2020 -We will make diuresis more aggressive at 40 mg IV twice daily -Patient also in A-fib with RVR will increase metoprolol to better control heartrate -Speech therapy to evaluate to rule out any aspiration his does report somecoughing with eating -Check COVID and respiratory viral panel -We will check ambulatory oxygen as patient is currently on room air -Add scheduled DuoNebs and continue as needed albuterol -Will definitely need pulmonary follow-up as an outpatient Acute on chronic heart failure with preserved ejection fraction -Restrict sodium intake -Restrict fluid intake -Accurate I's and O's -Daily weights -We will schedule Lasix -Echocardiogram shows EF of 60% with normal wall motion however he has concentric LVH and diastolic dysfunction as well as pulmonary artery systolic pressure 57 mmHg indicating moderate pulmonary hypertension Bilateral pleural effusion -Right greater than left -We will make diuresis more aggressive -We will follow chest x-ray again in the morning -May require thoracentesis however would follow after aggressive diuresis as I do not anticipate this is going to be parapneumonic or empyema Pulmonary artery hypertension -Suspect related to pulmonary disease -Diuresis as noted above -Needs pulmonary medicine follow-up Paroxysmal atrial fibrillation with RVR -Patient with history of A-fib and has had previous DCCV -Increase metoprolol from 25 mg p.o. twice daily to 50 mg p.o. twice daily -Patient is not anticoagulated due to history of falls and fall risk with Parkinson's disease -Continue to monitor on telemetry Mild troponin elevation -Troponins are elevated and stable but much improved compared to previous -No chest pain -No EKG changes -Likely related to A-fib with RVR and heart failure -This was discussed with cardiology prior to admission and they felt likely related to his elevated heart rate and heart failure as well COPD -Patient needs spacer as reports he does not correctly use his inhaler at home -We will use nebulizers here -Add scheduled DuoNebs -Needs outpatient PFTs and pulmonary medicine follow-up Parkinson's disease -Continue carbidopa levodopa -Continue outpatient work-up -Family indicates MRI is pending History of seizures -Continue home Keppra Hypothyroidism -Continue home levothyroxine DVT prophylaxis -Subcu enoxaparin 40 daily CODE STATUS Full code Medications at Discharge Home Medications levetiracetam 750 mg tablet 750 mg PO BID seizures 12/15/20 aspirin 81 mg tablet,delayed release (Adult Aspirin Regimen) 81 mg PO DAILY heart health 05/18/22 carbidopa 25 mg-levodopa 100 mg tablet 0.5 tab PO TID parkinsons 08/17/22 cholecalciferol (vitamin D3) 25 mcg (1,000 unit) tablet 2,000 unit PO DAILY supplement 08/17/22 levothyroxine 25 mcg tablet 25 mcg PO DAILY thyroid 08/17/22 vitamin E (dl, acetate) 180 mg (400 unit) capsule 180 mg PO DAILY vitamin 08/17/22 albuterol sulfate 90 mcg/actuation aerosol inhaler (Proventil HFA) 2 puff inhalation Q6H PRN shortness of breath or wheezing #6.7 grams 09/23/22 benzonatate 200 mg capsule 200 mg PO QHS PRN cough #10 caps 08/21/23 carbidopa ER 50 mg-levodopa 200 mg tablet,extended release 1 tab PO QHS parkinsons 08/22/23 furosemide 40 mg tablet (Lasix) 40 mg PO DAILY #30 tabs 09/01/23 metoprolol tartrate 50 mg tablet 50 mg PO BID #60 tabs 09/01/23 potassium chloride 20 mEq tablet,extended release 20 meq PO DAILY #30 tabs 09/01/23 Hospital Course Operations None Procedures 2-D Echocardiogram, EKG and - (Chest x-ray/CTA of the chest) Summary of Care Provided Minutes Spent on Discharge: 38 Hospital Course: Mr. Gilliland is an 83-year-old white male who presented to emergency department at [facility] on 08/30/2023 with worsening shortness of breath. Patient reported on presentation that he started having worsening shortness of breath about 2 weeks ago and also developed a cough. [facility] where he was diagnosed with a pneumonia and started on azithromycin. 3 days later on 08/24/2023 he came to the emergency department because his shortness of breath persisted and he was transitioned to doxycycline. Since that time he hadongoing shortness of breath that was worse with exertion and worsening orthopnea. He had a known history of diastolic heart failure and pulmonary hypertension as well as a history of atrial fibrillation that was paroxysmal in nature. He was on a beta-loli 25 mg a day and has required cardioversion previously but is not anticoagulated due to fall risk. Upon presentation he wasnot requiring any oxygen while at rest and did not feel significantly short of breath at rest however with exertion he had worsening dyspnea. In the emergencydepartment he had a chest x-ray that showed bilateral effusions and possible atelectasis. He was afebrile without an elevated white count. Troponin was mildly elevated but stable throughout his hospital course and he has had much higher troponins previously for which work-up was unremarkable. He follows withDr. Ferrer from cardiology at baseline. His indicated he had increased coughing even being on the antibiotics. He does have a history of tobacco abuseand has never been worked up for COPD and only takes an albuterol inhaler at home at baseline. BNP was also elevated on admission so he was admitted to the telemetry floor where his heart rates were noted to be elevated and he was in A-fib. Heart rates were noted to be no higher than 120 but fairly consistently between 100-120. For this, I increased his beta-loli from 25 to 50 mg p.o. daily which did help his heart rate dropped into the 80s. We also placed him onIV diuretics. Echocardiogram demonstrated a normal EF at 60% with no wall motion abnormalities however he did have LVH that was mild and concentric as well as a moderately enlarged left atrium and pulmonary systolic pressure of 57 mmHg. I obtained a CTA of his chest that demonstrated no pulmonary embolus or arterial dissection however he had large bilateral pleural effusions and moderate bibasilar atelectasis due to compression as well as a moderate pericardial effusion versus pericardial thickening. He also had significant emphysematous changes in bilateral lung lerma that were more significant at theapex. There was no pericardial effusion noted on his echo. I did compare this CT from a previous CT in 2020 and he was noted to have fairly sizable pleural effusions at that time as well. He has never had a thoracentesis and is not on diuretics at baseline. I made his diuretics more aggressive and repeated his chest x-ray in the a.m. of 09/01/2023. His bibasilar effusion looked improved and he was subjectively feeling better. He reported his cough had improved as well. We did an ambulatory pulse ox prior to discharge and he was stable on room air with oxygen saturations at 93% at rest on room air and 90% with exertion. The patient was also able to exert himself most more extensively thanthe day prior. I have asked him to get a follow-up basic metabolic profile as we will continue Lasix 40 mg daily and I have placed him on potassium 20 mg daily. He is to call his primary care physician to have this ordered for the next 5 to 7 days. I have also asked him to follow-up with pulmonary medicine as he will need PFTs when she is clinically more stabilized and they will need to reevaluate him with a repeat chest x-ray versus CT scan to see if we actually need to do a thoracentesis or if he is improving with adequate diuresis. I haveasked him to to follow-up with Dr. Ferrer from cardiology to reassess his heart rate with his atrial fibrillation. Patient was able to be discharged in stable condition on 09/01/2023. Prescriptions for the Lasix, increased beta-loli dose, and potassium were sent to his local pharmacy. Discharge diagnoses: Shortness of breath Cough Acute on chronic heart failure with preserved ejection fraction-improved Bilateral pleural effusions-improved Pulmonary artery hypertension PAF with RVR-heart rates better Mild troponin elevation-suspect stress-induced ischemia and type II NSTEMI COPD Parkinson's disease History of seizures Hypothyroidism Physical Exam Narrative Patient indicating he feels much better today. Shortness of breath is improved drastically and he was able to lie flat last night to sleep. Cough is improved. Const alert, oriented x3, no apparent distress, average body habitus and well nourished Constitutional Narrative: Elderly, white male, sitting up in bed, appears comfortable, currently on room air, at bedside General Appearance: cooperative, comfortable, well kempt and well developed Orientation / Consciousness: awake, oriented to person, oriented to place and oriented to time Exam Limitations: no limitations HEENT normocephalic, head/scalp atraumatic and moist oral mucous membranes HEENT Narrative: Dentition is fair, Mallampati is 2, patient has mild to moderate hearing loss Eyes PERRL, EOMs intact bilaterally and conjunctivae normal Eyes Narrative: No scleral icterus Neck no lymphadenopathy and supple Neck Narrative: Trachea midline, no thyroid enlargement Resp normal respiratory effort, no retractions and no use of accessory muscles Resp Narrative: Crackles at right base have resolved, diffusely diminished Auscultation: crackles; Negative for rhonchi or wheezes Cardio regular rate, S1 normal heart sound, S2 normal heart sound, no rub, no gallops and no clicks; Negative for regular rhythm or no murmurs Cardio Narrative: Irregular irregular rhythm with regular rate, systolic murmur 1 out of 6 GI normal to inspection, nondistended, normoactive bowel sounds, soft to palpation and non-tender Extremity no clubbing, cyanosis or edema Extremity Narrative: Pedal pulses are 2+ Skin no rashes or lesions noted, no wounds, skin turgor normal, no jaundice, no petechiae and no mottling Neuro oriented x3, CN's II-XII intact bilaterally, moves all extremities and no focal motor deficits Speech: speech normal Psych affect normal Psych Narrative: Pleasant, interacts normally Weight / BMI Weight Weight: 78.5 kg Body Mass Index (BMI) 22.8 ABG / Lab / Microbiology Data 08/31/23 07:27 09/01/23 05:10 Laboratory: Laboratory Results - last 24 hr 09/01/23 05:10: Sodium 139, Potassium 3.3 L, Chloride 103, Carbon Dioxide 28.0, Anion Gap 8, BUN 19 H, Creatinine 0.69 L, Estim Creat Clear Calc 63.24, Est GFR (MDRD) Af Amer 142, Est GFR (MDRD) Non-Af 117, BUN/Creatinine Ratio 27.7 H, Glucose 111 H, Calcium 8.8, Phosphorus 3.7, Magnesium 2.0, Total Bilirubin 0.40,AST 16, ALT 15 L, Alkaline Phosphatase 97, Total Protein 6.7, Albumin 2.9 L, Globulin 3.8, Albumin/Globulin Ratio 0.8 L, TSH 3.78 H, Free T4 1.46 Microbiology: Microbiology 08/31/23 11:13 Mucosa - Nasopharyngeal Respiratory Panel (PCR) - Final 08/31/23 11:00 Nasal Secretion SARS-CoV-2 Antigen (Rapid) - Final Radiography Diagnostic Testing: Radiology Impression Chest CTA 08/31/23 09:57 IMPRESSION: No demonstrated pulmonary embolism or arterial dissection. Large bilateral pleural effusions with moderate bibasilar atelectasis or infiltrate. Moderate pericardial effusion versus pericardial thickening. Electronically Signed: Humberto Hampton MD at 12:17 EDT , Chest X-Ray 09/01/23 05:45 IMPRESSION: Improved aeration in the lung bases with mild residual atelectasis or airspace disease in the lateral left lower lung. Electronically Signed: Jerrod Smith MD at 6:49 EDT , D/C Instructions Discharge Diet: Low fat / Low cholesterol and 2000 mg Sodium Diet Discharge Activity: Return to Normal Activity Meaningful Use Info Meaningful Use Diagnoses (Choose all that apply): CHF CHF GISELLA/ARB ordered at discharge?: No Reason GISELLA/ARB not ordered?: Not indicated Documented LVEF (%): 60 Discharge Plan Admission Admit Date/Time: 08/30/23 14:11 Primary Reason for Your Visit: Shortness of breath Attending Provider: Lata Sagastume Primary Care Provider: Vu Pulido Consulting Providers: Yonatan Morrissey Instructions Additional Instructions / Restrictions: 1. Take Lasix at noon every day 2. Please call your primary care doctor and ask them to order a basic metabolicprofile to be done within the next 5 to 7 days to recheck your kidney function and potassium levels since we started a water pill 3. Please call cardiology and pulmonology on Saturday as noted below to set up appointments to be seen for hospital follow-up Discharge Orders/Prescriptions Prescriptions: New metoprolol tartrate 50 mg Tablet 50 mg PO BID Qty: 60 1RF furosemide [Lasix] 40 mg tablet 40 mg PO DAILY Qty: 30 1RF potassium chloride 20 mEq tablet extended release 20 meq PO DAILY Qty: 30 1RF Continued aspirin [Adult Aspirin Regimen] 81 mg tablet,delayed release (DR/EC) 81 mg PO DAILY vitamin E (dl, acetate) 180 mg (400 unit) capsule 180 mg PO DAILY levothyroxine 25 mcg tablet 25 mcg PO DAILY Patient Comments: TAKE 1 TABLET BY MOUTH ONCE DAILY. TAKE ON EMPTY STOMACH. FOR THYROID. carbidopa-levodopa 25-100 mg tablet 0.5 tab PO TID Patient Comments: TAKE 0.5 TABLETS BY MOUTH THREE TIMES DAILY. TAKE THREE TIMES DAILY WITH MEALS. carbidopa-levodopa 50-200 mg tablet extended release 1 tab PO QHS Patient Comments: TAKE 1 TABLET AT 9PM (BEDTIME) benzonatate 200 mg capsule 200 mg PO QHS PRN (Reason: cough) Qty: 10 0RF levetiracetam 750 MG tablet 750 mg PO BID cholecalciferol (vitamin D3) 25 mcg (1,000 unit) tablet 2,000 unit PO DAILY albuterol sulfate [Proventil HFA] 90 mcg/actuation HFA aerosol inhaler 2 puff inhalation Q6H PRN (Reason: shortness of breath or wheezing) Qty: 6.7 1RF Discontinued azithromycin 250 mg tablet 250 mg PO QDAY Qty: 6 0RF Rx Instructions: 2 tablets today, then 1 tablet daily on days 2 through 5 doxycycline hyclate 100 mg capsule 100 mg PO BID 7 Days Qty: 14 0RF doxycycline monohydrate 100 mg capsule 100 mg PO Q12H Patient Comments: TAKE 1 CAPSULE BY MOUTH TWICE A DAY metoprolol tartrate 25 mg tablet 25 mg PO BID Qty: 60 11RF Referrals / Follow Up: Kulwinder Luis MD [Med Staff - Active Staff] - Within 2 Weeks Brady Ferrer MD [Med Staff - Active Staff] - Within 1 Month Vu Pulido MD [Primary Care Provider] - In 1 Week Disposition Disposition (needs filled in before D/C Order can be placed): Home, Self Care Charges/Coding Visit Charges Inpatient E&M: 10222 Disch Hosp >30min 09/01/23 1113 <Electronically signed by Lata Sagastume DO> Cosigner Signature (if applicable): CC: Dr. Kulwinder Luis MD; Dr. Brady Ferrer MD; Dr. Lata Sagastume DO; Dr. Taisha MD~ Signed [facility] Work Phone: [phone]) 751-205010-14-2023 Progress note Author Lata Sagastume [facility] August 31, 2023 12:23pm Note Date/Time August 31, 2023 1 2:23pm [facility] Medical Records Department [address] [place] [id number] Progress Note - Hospitalist 08/31/23 1204 MR#: [id number] Acct: [id number] Name: RAMSES GILLILAND Rep #:[id number] : 1940 83 From: Lata Sagastume DO PCP: Dr. Vu Pulido MD Status:ADM I NO Location: [place] [address] 1 Reason for Visit Reason for Visit: Shortness of Breath Subjective Subjective Mr. Gilliland is an 83-year-old male who presented to the emergency department at [facility] on 08/30/2023 with worsening shortness of breath. Hehas had progressively worsening shortness of breath [facility] and started on azithromycin. He came to the emergency department 3 days later because he had continued shortness of breath and was transition to twice daily doxycycline on 08/24/2023. His symptoms have persisted and actually worsened. He has increasing shortness of breath with increasing orthopnea. He does have a history of diastolic heart failure and pulmonary hypertension on previous echocardiogram. He never required any oxygen and was on room air while at rest and did not complain of significant shortness of breath while at rest. His wifeindicates he had increased coughing. He has had no fevers or chills, no leukocytosis and no elevated differential. My suspicion is extremely low for pneumonia. His does indicated he intermittently coughs after eating and has done so for a long time. He does have a potential diagnosis of Parkinson's and work- up is in progress. He does not appear to have any significant respiratory distress at the time of my evaluation and he is currently on room air. Objective Data Objective Data Vital Signs: Vital Signs Temp Pulse Resp BP Pulse Ox O2 Del Method 98.0 F 73 18 144/120 H 97 Room Air 08/31/23 08:30 08/31/23 11:22 08/31/23 08:30 08/31/23 11:22 08/31/23 08:30 08/31/23 08:30 Oxygen Delivery Method Room Air Weight: 78.8 kg Body Mass Index (BMI) 22.8 Intake & Output: Intake and Output for Last 24 Hours 08/29/23 08/30/23 08/31/23 23:59 23:59 23:59 Intake Total 240 / 340 340 / 340 Output Total 1200 / 1500 600 / 600 Balance -960 / -1160 -260 / -260 Lab / Micro Data 08/31/23 07:27 08/31/23 07:27 Labs: Laboratory Results - last 24 hr 08/30/23 11:49: Sodium 137, Potassium 4.1, Chloride 104, Carbon Dioxide 30.0, Anion Gap 3 L, BUN 10, Creatinine 0.68 L, Estim Creat Clear Calc 64.36, Est GFR (MDRD) Af Amer 143, Est GFR (MDRD) Non-Af 118, BUN/Creatinine Ratio 14.6, Glucose 114 H, Calcium 9.0, Troponin I High Sens 106 H, B-Natriuretic Peptide 185.5 H 08/30/23 14:45: Troponin I High Sens 105 H, TSH 3.27 08/30/23 17:19: Troponin I High Sens 108 H 08/31/23 07:27: WBC 6.9, RBC 4.71, Hgb 14.5, Hct 45.8, MCV 97.2 H, MCH 30.8, MCHC 31.7 L, RDW Std Deviation 47.7 H, RDW Coeff of Francis 13.4, Plt Count 238, MPV11.8, Immature Gran % (Auto) 0.300, Neut % (Auto) 65.6, Lymph % (Auto) 15.0 L, Keith % (Auto) 17.2 H, Eos % (Auto) 1.5, Baso % (Auto) 0.4, Absolute Neuts (auto)4.5, Absolute Lymphs (auto) 1.03, Nucleated RBC % 0, Sodium 139, Potassium 3.6, Chloride 107, Carbon Dioxide 27.0, Anion Gap 5, BUN 14, Creatinine 0.66 L, EstimCreat Clear Calc 63.48, Est GFR (MDRD) Af Amer 149, Est GFR (MDRD) Non-Af 123, BUN/Creatinine Ratio 21.3 H, Glucose 113 H, Calcium 9.0 Micro: Microbiology 08/31/23 11:00 Nasal Secretion SARS-CoV-2 Antigen (Rapid) - Final Radiography Diagnostic Testing: Radiology Impression Chest X-Ray 08/30/23 12:05 IMPRESSION: Mild pleural effusions with increased bibasilar atelectasis or pneumonia. Electronically Signed: Silva Soler MD at 12:19 EDT Reading Location ID and State: [facility] / [place] Tel , Service support , Echocardiogram 08/30/23 14:20 Interpretation Summary Normal LV size. Left ventricular systolic function is normal. The estimated ejection fraction is 60 %. Mild concentric left ventricular hypertrophy. The left atrium is moderately enlarged. Pulmonary artery systolic pressure is 57 mmHg. Moderate pulmonary hypertension. Ordering Physician: Yonatan Morrissey Referring Physician: Vu Pulido Performed By: Sandi Munson, RDCS, RVT Physical Exam Const alert, oriented x3, no apparent distress, average body habitus and well nourished Constitutional Narrative: Elderly, white male, sitting up in bed, appears comfortable, currently on room air, at bedside HEENT head/scalp atraumatic and moist oral mucous membranes HEENT Narrative: Dentition is poor, Mallampati is 2, no thrush Head and Scalp: normocephalic Eyes PERRL, EOMs intact bilaterally and conjunctivae normal Eyes Narrative: No scleral icterus Neck no lymphadenopathy and supple Neck Narrative: Trachea midline, no thyroid enlargement Resp normal respiratory effort, no retractions and no use of accessory muscles Resp Narrative: Crackles at the right base, diffusely diminished otherwise but no other adventitious sounds identified Auscultation: crackles; Negative for rhonchi or wheezes Cardio S1 normal heart sound, S2 normal heart sound, no rub, no gallops and no clicks Cardio Narrative: Mild tachycardia with irregularly irregular rhythm, 1 out of 6 systolic murmur GI normal to inspection, nondistended, normoactive bowel sounds, soft to palpation and non-tender Extremity no clubbing, cyanosis or edema Extremity Narrative: Pedal pulses are 2+ Skin no rashes or lesions noted, no wounds, skin turgor normal, no jaundice, no petechiae and no mottling Neuro oriented x3, CN's II-XII intact bilaterally, moves all extremities and no focal motor deficits Speech: speech normal Psych affect normal Psych Narrative: Pleasant, interacts normally Assessment & Plan Assessment/Plan (1) Paroxysmal atrial fibrillation with rapid ventricular response: (2) Shortness of breath: (3) Pleural effusion: (4) Elevated troponin I level: PLAN: Plan Shortness of breath/cough--> suspect multifactorial -EKG was overall unremarkable other than for small right pleural effusion however CTA of the chest shows definitive bilateral effusions with the right side being greater as well as evidence of COPD in the lung parenchyma that is visible -Final report is pending -Effusions appear stable when compared to previous CTA from 2020 -We will make diuresis more aggressive at 40 mg IV twice daily -Patient also in A-fib with RVR will increase metoprolol to better control heartrate -Speech therapy to evaluate to rule out any aspiration his does report somecoughing with eating -Check COVID and respiratory viral panel -We will check ambulatory oxygen as patient is currently on room air -Add scheduled DuoNebs and continue as needed albuterol -Will definitely need pulmonary follow-up as an outpatient Acute on chronic heart failure with preserved ejection fraction -Restrict sodium intake -Restrict fluid intake -Accurate I's and O's -Daily weights -We will schedule Lasix -Echocardiogram shows EF of 60% with normal wall motion however he has concentric LVH and diastolic dysfunction as well as pulmonary artery systolic pressure 57 mmHg indicating moderate pulmonary hypertension Bilateral pleural effusion -Right greater than left -We will make diuresis more aggressive -We will follow chest x-ray again in the morning -May require thoracentesis however would follow after aggressive diuresis as I do not anticipate this is going to be parapneumonic or empyema Pulmonary artery hypertension -Suspect related to pulmonary disease -Diuresis as noted above -Needs pulmonary medicine follow-up Paroxysmal atrial fibrillation with RVR -Patient with history of A-fib and has had previous DCCV -Increase metoprolol from 25 mg p.o. twice daily to 50 mg p.o. twice daily -Patient is not anticoagulated due to history of falls and fall risk with Parkinson's disease -Continue to monitor on telemetry Mild troponin elevation -Troponins are elevated and stable but much improved compared to previous -No chest pain -No EKG changes -Likely related to A-fib with RVR and heart failure -This was discussed with cardiology prior to admission and they felt likely related to his elevated heart rate and heart failure as well COPD -Patient needs spacer as reports he does not correctly use his inhaler at home -We will use nebulizers here -Add scheduled DuoNebs -Needs outpatient PFTs and pulmonary medicine follow-up Parkinson's disease -Continue carbidopa levodopa -Continue outpatient work-up -Family indicates MRI is pending History of seizures -Continue home Keppra Hypothyroidism -Continue home levothyroxine DVT prophylaxis -Subcu enoxaparin 40 daily CODE STATUS Full code Charges/Coding Visit Charges Inpatient E&M: 44913 [facility] L3 08/31/23 1223 <Electronically signed by Lata Sagastume DO> Cosigner Signature (if applicable): CC: ~ Signed [facility] Work Phone: 1([phone]) 208-323410-13-2023 History and physical note Author Yonatan Morrissey [facility] August 30, 2023 4:53pm Note Date/Time August 30, 2023 2 :21pm [facility] Medical Records Department [address] [place] [address] H&P Exam - Hospitalist 08/30/23 1414 MR#: [id number] Acct: [id number] Name: RAMSES GILLILAND Rep #:[id number] : 1940 83 From: Yonatan walker MD PCP: Dr. Vu Pulido MD Status:ADM I NO Location: [place] [address] HPI - General General Date of Admission: 08/30/23 HPI Narrative RAMSES GILLILAND, is a 83 M who presents to the hospital with continued and worsening shortness of breath. He states that he started feeling short of breath over 2 weeks ago and [facility] where he was diagnosed with pneumonia and started on azithromycin. 3 days later came to the ER because he had continued shortness of breath and was transition to twice daily doxycycline on 08/24/2023. Since that time he has had continued and worsening shortness of breath with increasing orthopnea. He does have a history of diastolic CHF and pulmonary hypertension. He is not requiring any oxygen while at rest and does not feel significantly short of breath at rest. In the ER chest x-ray was obtained which showed some mild bilateral pleural effusions and possible atelectasis. He is afebrile without a white count. 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 Parkinson disease Paroxysmal atrial fibrillation Seizure disorder Weight gain Home Medications levetiracetam 750 mg tablet 750 mg PO BID seizures 12/15/20 [History Last Taken 01/09/21] aspirin 81 mg tablet,delayed release (Adult Aspirin Regimen) 81 mg PO DAILY 05/18/22 [History Last Taken Unknown] carbidopa 25 mg-levodopa 100 mg tablet 0.5 tab PO TID 08/17/22 [History Last Taken Unknown] cholecalciferol (vitamin D3) 25 mcg (1,000 unit) tablet 2,000 unit PO DAILY supplement 08/17/22 [History Last Taken Unknown] levothyroxine 25 mcg tablet 25 mcg PO DAILY 08/17/22 [History Last Taken Unknown] vitamin E (dl, acetate) 180 mg (400 unit) capsule 180 mg PO DAILY 08/17/22 [History Last Taken Unknown] albuterol sulfate 90 mcg/actuation aerosol inhaler (Proventil HFA) 2 puff inhalation Q6H PRN shortness of breath or wheezing #6.7 grams 09/23/22 [Rx Last Taken Unknown] metoprolol tartrate 25 mg tablet 25 mg PO BID #60 tabs 01/21/23 [Rx Last Taken Unknown] azithromycin 250 mg tablet 250 mg PO QDAY #6 tabs 08/21/23 [Rx Last Taken Unknown] benzonatate 200 mg capsule 200 mg PO QHS PRN cough #10 caps 08/21/23 [Rx Last Taken Unknown] carbidopa ER 50 mg-levodopa 200 mg tablet,extended release 1 tab PO QHS 08/22/23[History Last Taken Unknown] doxycycline hyclate 100 mg capsule 100 mg PO BID 7 days #14 caps 08/24/23 [Rx Last Taken Unknown] doxycycline monohydrate 100 mg capsule 100 mg PO Q12H 08/30/23 [History Last Taken Unknown] Allergy/AdvReac Type Severity Reaction Status Date / Time No Known Allergies Allergy Verified 08/30/23 10:53 Family History Father Hypertension Mother Parkinsons disease Surgical History History of cardioversion (01/09/21) S/P appendectomy S/P cholecystectomy S/P exploratory laparotomy Social History household members: spouse Smoking Status: Former smoker how long ago did patient quit smoking: Quite remotely, but did smoke again x 1 month in 2020 but has since quit. alcohol intake: never substance use type: does not use ROS Constitutional Constitutional: Denies chills, fatigue, fever(s) or malaise Eyes Eyes: Denies blurry vision ENT HEENT: Denies headache(s) or nasal discharge Cardiovascular Cardiovascular: Reports orthopnea; Denies chest pain, dyspnea on exertion or syncope Respiratory/Chest Respiratory/Chest: Reports shortness of breath at rest and shortness of breath with exertion; Denies cough Gastrointestinal Gastrointestinal: Denies constipation, diarrhea, nausea or vomiting Genitourinary Genitourinary: Denies dysuria Neurologic Neurologic: Denies focal weakness, numbness or tremor(s) Psychiatric Psychiatric: Denies anxiety or depression Vital Signs Vital Signs Vital Signs: 08/30/23 10:51 08/30/23 11:51 08/30/23 11:51 Temperature 97.7 F L Temperature Source Temporal Pulse Rate 79 Respiratory Rate 14 Respiratory Effort Normal Respiratory Depth Normal Respiratory Pattern Normal Blood Pressure 125/83 H Blood Pressure Mean 97 Pulse Ox 91 Oxygen Delivery Method Room Air Room Air Room Air 08/30/23 13:00 08/30/23 13:53 Temperature Temperature Source Pulse Rate 113 H 113 H Respiratory Rate 18 23 H Respiratory Effort Respiratory Depth Respiratory Pattern Blood Pressure 153/100 H 126/80 H Blood Pressure Mean 117 95 Pulse Ox 98 94 Oxygen Delivery Method Room Air Room Air Weight Weight: 178 lb 9.191 oz Body Mass Index (BMI) 23.6 Physical Exam Narrative General: Alert, Oriented x3, Cooperative, No apparent distress HEENT: Atraumatic, PERRLA, EOMI, Normocephalic Oral: Moist Mucosa Neck: Supple, No JVD Lungs: Diminished, Normal air movement, No rhonchi, No wheeze, No rales Cardiovascular: Irregular rate, irregular rhythm, Normal S1, Normal S2, No murmurs Abdomen: Soft, Non Tender, Non-Distended, No Hepato-splenomegaly Extremities: No edema, Capillary Refill Less than 3 Seconds Skin: No rashes, No breakdown Musculoskeletal: No Tenderness to Palpation of Joints or Extremities Neurological: Cranial nerves II-XII grossly intact, Motor Exam 5/5 strength throughout, Sensory exam intact to light touch and pain Psych/Mental Status: Normal Affect, Appropriate Results Lab / Micro Data 08/30/23 11:49 08/30/23 11:49 Labs: Laboratory Results - last 24 hr 08/30/23 11:49: WBC 8.3, RBC 4.66, Hgb 14.6, Hct 45.2, MCV 97.0 H, MCH 31.3, MCHC 32.3, RDW Std Deviation 47.5 H, RDW Coeff of [place] 13.3, Plt Count 271, MPV 11.5, Immature Gran % (Auto) 0.600, Neut % (Auto) 70.1 H, Lymph % (Auto) 12.8 L,Keith % (Auto) 15.3 H, Eos % (Auto) 0.7, Baso % (Auto) 0.5, Absolute Neuts (auto)5.8, Absolute Lymphs (auto) 1.06, Nucleated RBC % 0, Sodium 137, Potassium 4.1, Chloride 104, Carbon Dioxide 30.0, Anion Gap 3 L, BUN 10, Creatinine 0.68 L, Estim Creat Clear Calc 64.36, Est GFR (MDRD) Af Amer 143, Est GFR (MDRD) Non-Af 118, BUN/Creatinine Ratio 14.6, Glucose 114 H, Calcium 9.0, Troponin I High Luap781 H, B-Natriuretic Peptide 185.5 H Radiology Impression Chest X-Ray 08/30/23 12:05 IMPRESSION: Mild pleural effusions with increased bibasilar atelectasis or pneumonia. Electronically Signed: Silva Soler MD at 12:19 EDT , Assessment & Plan Assessment/Plan (1) Shortness of breath: PLAN: Plan 1. Shortness of breath secondary to diastolic CHF exacerbation in setting of pulmonary hypertension ? Last echo was on 04/23/2022 with an EF of 60% and PA systolic pressure 55 mmHg and stage II diastolic dysfunction ? Continue with Lasix ? Will likely need to be discharged on diuretic ? We will repeat echo ? Not currently requiring any oxygen at rest but will likely need an amatory pulse ox prior to discharge 2. A-fib/HTN ? His heart rate while here has been less than 120 so we will hold off on any IVrate medications ? Continue with his home metoprolol ? Hopefully with diuretics his heart rate will improve ? He is not on anticoagulation other than aspirin this likely secondary to beinga fall risk from his Parkinson's disease 3. Parkinson's disease/seizure disorder ? Stable ? Continue with his Sinemet ? Continue with Keppra 4. Hypothyroidism ? We will obtain a TSH as his last was a year ago ? Continue with his Synthroid DVT: Ambulation 75 minutes was spent on direct patient care, including documentation as well as chart review and collaboration with colleagues Charges/Coding Visit Charges Inpatient E&M: 24025 Init Hosp L3 08/30/23 1653 <Electronically signed by Yonatan Morrissey MD> Cosigner Signature (if applicable): CC: Dr. Yonatan Morrissey MD; Dr. Vu Pulido MD~ Signed [facility] Work Phone: [phone]) 273-179810-13-2023 Discharge summary Author Jozef Grant [facility] August 30, 2023 2:00pm Note Date/Time August 30, 2023 1 2:51pm [facility] Medical Records Department [address] [place] [address] Emergency Department Summary 08/30/23 MR#: [id number] Acct: [id number] Name: RAMSES GILLILAND Rep #:[id number] : 1940 83 From: Jozef Grant DO PCP: Dr. Vu Pulido MD Status:ADM I NO Location: [place] [address] HPI History of Present Illness Chief Complaint: Shortness of Breath Narrative Narrative: 83-year-old male presenting with shortness of breath. He states that he was seen about 6 days ago for similar. He was placed on antibiotics and told he hadpneumonia. He has not had any fevers or chills at home since he has been home. He does have a cough which is only having production of clear sputum. No feversor chills. He does describe sweats. He has dyspnea on exertion and orthopnea. No lower extremity edema. He denies any chest pain. He states at this point itis difficult for him to take a shower put on his close because he becomes so fatigued. He states that he did vomit about 4 days ago 2 times but has not any problems since. He is able to eat and drink. No constipation or diarrhea. No urinary complaints. 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 Parkinson disease Paroxysmal atrial fibrillation Seizure disorder Weight gain Home Medications levetiracetam 750 mg tablet 750 mg PO BID seizures 12/15/20 [History Last Taken 01/09/21] aspirin 81 mg tablet,delayed release (Adult Aspirin Regimen) 81 mg PO DAILY 05/18/22 [History Last Taken Unknown] carbidopa 25 mg-levodopa 100 mg tablet 0.5 tab PO TID 08/17/22 [History Last Taken Unknown] cholecalciferol (vitamin D3) 25 mcg (1,000 unit) tablet 2,000 unit PO DAILY supplement 08/17/22 [History Last Taken Unknown] levothyroxine 25 mcg tablet 25 mcg PO DAILY 08/17/22 [History Last Taken Unknown] vitamin E (dl, acetate) 180 mg (400 unit) capsule 180 mg PO DAILY 08/17/22 [History Last Taken Unknown] albuterol sulfate 90 mcg/actuation aerosol inhaler (Proventil HFA) 2 puff inhalation Q6H PRN shortness of breath or wheezing #6.7 grams 09/23/22 [Rx Last Taken Unknown] metoprolol tartrate 25 mg tablet 25 mg PO BID #60 tabs 01/21/23 [Rx Last Taken Unknown] azithromycin 250 mg tablet 250 mg PO QDAY #6 tabs 08/21/23 [Rx Last Taken Unknown] benzonatate 200 mg capsule 200 mg PO QHS PRN cough #10 caps 08/21/23 [Rx Last Taken Unknown] carbidopa ER 50 mg-levodopa 200 mg tablet,extended release 1 tab PO QHS 08/22/23[History Last Taken Unknown] doxycycline hyclate 100 mg capsule 100 mg PO BID 7 days #14 caps 08/24/23 [Rx Last Taken Unknown] doxycycline monohydrate 100 mg capsule 100 mg PO Q12H 08/30/23 [History Last Taken Unknown] Allergy/AdvReac Type Severity Reaction Status Date / Time No Known Allergies Allergy Verified 08/30/23 10:53 Family History Father Hypertension Mother Parkinsons disease Surgical History History of cardioversion (01/09/21) S/P appendectomy S/P cholecystectomy S/P exploratory laparotomy Social History household members: spouse Smoking Status: Former smoker how long ago did patient quit smoking: Quite remotely, but did smoke again x 1 month in 2020 but has since quit. alcohol intake: never substance use type: does not use ROS ROS ED Constitutional Constitutional ED: Denies chills, fever(s) or sweats Eyes Eyes: Denies blurry vision or change in vision ENT ENT ED: Denies ear pain or sore throat Cardiovascular Cardiovascular: Reports orthopnea; Denies chest pain, palpitations or racing heartbeat Respiratory/Chest Respiratory/Chest: Reports cough, dyspnea, dyspnea on exertion and orthopnea; Denies sputum Gastrointestinal Gastrointestinal: Denies abdominal pain, constipation, diarrhea, nausea or vomiting Genitourinary Genitourinary ED: Denies dysuria, hematuria or urinary frequency Musculoskeletal Musculoskeletal: Denies arthralgias, myalgias or neck pain Integumentary Denies abscess, Abrasions or rash Neurologic Neurologic: Denies headache(s), paresthesias or weakness Psychiatric Psychiatric: Denies anxiety, depression, suicidal ideation or suicidal thoughts Endocrine Endocrinology: Denies polydipsia or polyuria EXAM Physical Exam Const Vital Signs: 08/30/23 10:51 08/30/23 11:51 08/30/23 11:51 Temperature 97.7 F L Temperature Source Temporal Pulse Rate 79 Respiratory Rate 14 Respiratory Effort Normal Respiratory Depth Normal Respiratory Pattern Normal Blood Pressure 125/83 H Blood Pressure Mean 97 Pulse Ox 91 Oxygen Delivery Method Room Air Room Air Room Air 08/30/23 13:00 Temperature Temperature Source Pulse Rate 113 H Respiratory Rate 18 Respiratory Effort Respiratory Depth Respiratory Pattern Blood Pressure 153/100 H Blood Pressure Mean 117 Pulse Ox 98 Oxygen Delivery Method Room Air Positive well nourished General Appearance ED: NAD; Negative for pallor HEENT Reports moist mucous membranes atraumatic Eyes PERRL Resp normal respiratory effort Auscultation: rales diffuse Cardio regular rate and regular rhythm GI non-tender Extremity General Extremety ED: Negative for edema or tenderness General Extremity: Negative for edema Neuro oriented x3 and CN's II-XII intact bilaterally Sensorium / Orientation: alert Psych mental status grossly normal Skin no wounds and skin turgor normal General Skin Exam: Negative for jaundice or pallor MDM MDM MDM Narrative Medical decision making narrative: 83-year-old male presenting with dyspnea. He is describing orthopnea and dyspnea on exertion. He does have a cough reactive-appearing sputum and has been on antibiotics but has finished these. It does not like he is on doxycycline. Differential includes pneumonia, CHF, acute coronary syndrome, viral etiology, dehydration, electrolyte normalities. CBC was obtained to assess white blood cell count, hemoglobin, platelets. BMP to assess renal function and electrolytes. High-sensitivity troponin and EKG to assess for ischemia/dysrhythmia. BNP to assess for CHF. Chest x-ray to rule out pneumoniaversus CHF. CBC shows a white count of 8.3. Hemoglobin stable 14.6. Plateletsare normal at 271. Renal function within normal limits. High- sensitivity troponin is 106. BNP 185.5 and has not much changed. Chest x-ray my interpretation bilateral pleural effusions. The radiologist services and agreesstates this could be a light atelectasis or pneumonia. The patient ambulated. He does not feel as if he can go home because he is so short of breath. Patientdesaturated to 88% while ambulating. Patient was given 40 mg of Lasix. I discussed with the hospitalist I think this is most likely CHF. It looks like he did a round of azithromycin prior to doing doxycycline and he still having shortness of breath. Impression: 1. Dyspnea 2. CHF exacerbation 3. Elevated troponin Lab Data Attestation: I reviewed the patient's lab results. Labs: Laboratory Results - last 24 hr 08/30/23 11:49 WBC 8.3 RBC 4.66 Hgb 14.6 Hct 45.2 MCV 97.0 H MCH 31.3 MCHC 32.3 RDW Std Deviation 47.5 H RDW Coeff of Francis 13.3 Plt Count 271 MPV 11.5 Immature Gran % (Auto) 0.600 Neut % (Auto) 70.1 H Lymph % (Auto) 12.8 L Keith % (Auto) 15.3 H Eos % (Auto) 0.7 Baso % (Auto) 0.5 Absolute Neuts (auto) 5.8 Absolute Lymphs (auto) 1.06 Nucleated RBC % 0 Sodium 137 Potassium 4.1 Chloride 104 Carbon Dioxide 30.0 Anion Gap 3 L BUN 10 Creatinine 0.68 L Estim Creat Clear Calc 64.36 Est GFR (MDRD) Af Amer 143 Est GFR (MDRD) Non-Af 118 BUN/Creatinine Ratio 14.6 Glucose 114 H Calcium 9.0 Troponin I High Sens 106 H B-Natriuretic Peptide 185.5 H Radiography Diagnostic Testing: Clinical Impression(s) from Imaging Studies Chest X-Ray 08/30/23 12:05 IMPRESSION: Mild pleural effusions with increased bibasilar atelectasis or pneumonia. Electronically Signed: Silva Soler MD at 12:19 EDT , Discharge Plan Disposition Disposition: Acute Care Hospital [facility] Discharge Date/Time: 08/30/23 13:55 What to do if you have Problems For any increased pain, shortness of breath, bleeding, nausea or vomiting, chestpain, or any unexpected problems, contact your Primary Care Provider. Call [facility] ([phone]) or report to the closest Emergency Room. Call 911 if necessary. 08/30/23 1400 <Electronically signed by Jozef Grant DO> Cosigner Signature (if applicable): CC: Dr. Vu Pulido MD ~ Signed [facility] Work Phone: 1(206) 463-594109-20-2023 Miscellaneous Notes* Telephone Encounter - Lis Morris RN - 08/07/2023 11:02 AM EDT Phoned patient and given provider's message below with verbalized understanding. * Telephone Encounter - Vu Pulido MD - 08/06/2023 5:20 PM EDT Vit d is slightly low. Make sure taking vit d. Otherwise labs are ok. [facility] History of Present illness Narrative* Vu Pulido MD - 08/05/2023 2:35 PM EDT Patient presents with: 6 Month Exam HPI: Patient presents today for office visit for follow up. Parkinson's: Saw Dr. Garcia on 07/15/23. Ropinirole stopped Started on Sinemet. Ambulates independently at home Walking better with his meds. No seizures. Uses walker while out Had 3-4 falls in May Got a scooter at home as well. No tremor or shakiness currently. Memory is stable. THYROID: Continues on Levothyroxine No energy changes Weight is stable. Follows with Cardiology. Dr. Ferrer Continues on Metoprolol Denies chest pain Does have some shortness of breath No edema. No chest pain. No changes in his breathing. Bp is good. Appetite is good. Last psa was good. MEDICATIONS: Current Outpatient Medications Medication Sig carbidopa-levodopa (SINEMET) 25-100 mg per tablet Take 1 tablet at 8AM, 1 tablet at Noon, and 1 tablet at 4PM. carbidopa-levodopa CR (SINEMET CR) 50-200 mg per tablet Take 1 tablet at 9PM (bedtime) levETIRAcetam (KEPPRA) 750 mg tablet Take 1 tablet by mouth twice daily. albuterol HFA (PROVENTIL HFA, VENTOLIN HFA) 90 mcg/actuation inhaler Inhale 2 Puffs as instructed every 6 hours as needed. aspirin, enteric coated (ASPIRIN, ENTERIC COATED) 81 mg EC tablet Take 81 mg by mouth once daily. levothyroxine (SYNTHROID) 25 mcg tablet Take 1 tablet by mouth once daily. Take on empty stomach. For thyroid. cholecalciferol (VITAMIN D3) 1,000 unit tab tablet Take 2 capsules by mouth once daily. metoprolol tartrate, short acting, (LOPRESSOR) 25 mg tablet Take 25 mg by mouth twice daily. multivit-min/FA/lycopen/lutein (CENTRUM SILVER MEN ORAL) Take by mouth once daily. No current facility-administered medications for this visit. ALLERGIES: ALLERGIES No Known Allergies 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 10/02/2017 Dx 09/2017 and started on fosamax Prostate cancer (HCC) 2007 45 radiation treatments-moderately differentiated adenocarcinoma 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) 01/31/2015 Seizures (HCC) 2007 Tobacco abuse 09/30/2014 Vascular dementia (HCC) 09/30/2014 Vertebral compression fracture (HCC) 11/04/2017 Vitamin D deficiency 09/19/2017 PAST SURGICAL HISTORY Procedure Laterality Date APPENDECTOMY remote CATARACT SURGERY, COMPLEX 2011, 2012 IOLs CHOLECYSTECTOMY 2005 laparoscopic CYSTOSCOPY 2008 PAST SURGICAL HISTORY OF 2007 prostate cancer external radiation rx PAST SURGICAL HISTORY OF surgery for PUD complications [place] II FAMILY HISTORY Problem Relation Age of Onset COPD Mother COPD Father Breast Cancer Sister Cancer Brother Social History Tobacco Use Smoking status: Former Packs/day: 1.00 Years: 30.00 Additional pack years: 0.00 Total pack years: 30.00 Types: Cigarettes Smokeless tobacco: Never Substance Use Topics Alcohol use: No Drug use: No Reviewed current medications, allergies, past medical history, surgical history, family history andsocial history today. REVIEW OF SYSTEMS All other reviewed and negative other than HPI. HEALTH MAINTENANCE: Reviewed health maintenance issues today and recommended the following in detail. Covid-19 Vaccine(1) Never done Spirometry Never done Shingrix Vaccine(1 of 2) Never done Advance Directive Discussion Never done Influenza Vaccine(1) due on 07/19/2023 VITALS: BP 130/82 Pulse 98 Ht 188 cm (6' 2) Wt 83.5 kg (184 lb) SpO2 96% BMI 23.62 kg/m Last 4 Encounter Wt Readings: Date: Wt: 07/15/2023 85.2 kg (187 lb 12.8 oz) 05/16/2023 85.6 kg (188 lb 12.8 oz) 02/07/2023 84.5 kg (186 lb 3.2 oz) 02/06/2023 86 kg (189 lb 9.6 oz) PHYSICAL EXAMINATION: General appearance: Well appearing, alert, in no acute distress, well-hydrated, well nourished. Skin: Skin color, texture, turgor normal, no suspicious rashes or lesions Head: Normocephalic, no masses, lesions, tenderness or abnormalities Lungs: Lungs clear to auscultation. No wheezing, rhonchi, rales Heart: irregular today. Normal s1 and s2. Abdomen: Normal abdominal exam, Abdomen soft, non-tender. Bowel sounds normal. No masses, organomegaly Extremities: No deformities, edema, skin discoloration, clubbing or cyanosis. Good capillary refill. ASSESSMENT/PLAN: 1. Vascular dementia without behavioral disturbance, psychotic disturbance, mood disturbance, or anxiety, unspecified dementia severity (HCC) - ICD9: 290.40, ICD10: F01.50 (primary diagnosis) - stable. 2. 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) - ICD9: 438.89, 345.90, ICD10: I69.398, G40.909 - per neurol 3. Vitamin D deficiency - ICD9: 268.9, ICD10: E55.9 - check lbas. 4. Hypertension, essential - ICD9: 401.9, ICD10: I10 - Controlled - Continue current medications 5. Persistent atrial fibrillation (HCC) - ICD9: 427.31, ICD10: I48.19 Is on asa. Not an anticoag candidate due to falls. 6. Hypothyroidism, acquired - ICD9: 244.9, ICD10: E03.9 -= stable. 7. Chronic obstructive pulmonary disease, unspecified COPD type (HCC) - ICD9: 496, ICD10: J44.9 - refill albuterol. Vu Pulido MD [facility] History of Past illness Narrative* Problem Noted Date Diagnosed Date Resolved Date Bilateral pleural effusion 08/05/2023 08/05/2023 0 08/05/2023 Acute bronchitis 11/05/2022 08/05/2023 08/05/2023 Chronic anticoagulation 01/05/202101/17 Closed fracture of shaft of humerus 06/24/2018 08/05/2023 Prostate cancer 09/30/2014 05/15/2022 Tobacco abuse 09/30/2014 09/18/2017 Memory loss 09/30/2014 05/17/2022 Diarrhea following gastrointestinal surgery 09/30/2014 11/04/2017 Rectal mass 02/04/2013 09/30/2014 documented as of this encounter (statuses as of 08/06/2023) [facility] of Past illness Narrative* Problem Noted Date Diagnosed Date Resolved Date Bilateral pleural effusion 08/05/2023 08/05/2023 0 08/05/2023 Acute bronchitis 11/05/2022 08/05/2023 08/05/2023 Chronic anticoagulation 01/05/2021 03/2 12/2022 Closed fracture of shaft of humerus 06/24/2018 08/05/2023 Prostate cancer 09/30/2014 05/15/2022 Tobacco abuse 09/30/2014 09/18/2017 Memory loss 09/30/2014 05/17/2022 Diarrhea following gastrointestinal surgery 09/30/2014 11/04/2017 Rectal mass 02/04/2013 09/30/2014 documented as of this encounter (statuses as of 08/07/2023) [facility] of Past illness Narrative* Problem Noted Date Diagnosed Date Resolved Date Bilateral pleural effusion 08/05/2023 08/05/2023 0 08/05/2023 Acute bronchitis 11/05/2022 08/05/2023 08/05/2023 Chronic anticoagulation 01/05/2021 03/2 12/2022 Closed fracture of shaft of humerus 06/24/2018 08/05/2023 Prostate cancer 09/30/2014 05/15/2022 Tobacco abuse 09/30/2014 09/18/2017 Memory loss 09/30/2014 05/17/2022 Diarrhea following gastrointestinal surgery 09/30/2014 11/04/2017 Rectal mass 02/04/2013 09/30/2014 documented as of this encounter (statuses as of 08/07/2023) [facility] of Past illness Narrative* Problem Noted Date Diagnosed Date Resolved Date Bilateral pleural effusion 08/05/2023 08/05/2023 0 08/05/2023 Acute bronchitis 11/05/2022 08/05/2023 08/05/2023 Chronic anticoagulation 01/05/2021 03/2 12/2022 Closed fracture of shaft of humerus 06/24/2018 08/05/2023 Prostate cancer 09/30/2014 05/15/2022 Tobacco abuse 09/30/2014 09/18/2017 Memory loss 09/30/2014 05/17/2022 Diarrhea following gastrointestinal surgery 09/30/2014 11/04/2017 Rectal mass 02/04/2013 09/30/2014 documented as of this encounter (statuses as of 09/02/2023) [facility] Narrative* Problem Noted Date Diagnosed Date Resolved Date Bilateral pleural effusion 08/05/2023 08/05/2023 0 08/05/2023 Acute bronchitis 11/05/2022 08/05/2023 08/05/2023 Chronic anticoagulation 01/05/2021 03/2 12/2022 Closed fracture of shaft of humerus 06/24/2018 08/05/2023 Prostate cancer 09/30/2014 05/15/2022 Tobacco abuse 09/30/2014 09/18/2017 Memory loss 09/30/2014 05/17/2022 Diarrhea following gastrointestinal surgery 09/30/2014 11/04/2017 Rectal mass 02/04/2013 09/30/2014 documented as of this encounter (statuses as of 09/03/2023) [facility] illness Narrative* Problem Noted Date Diagnosed Date Resolved Date Bilateral pleural effusion 08/05/2023 08/05/2023 0 08/05/2023 Acute bronchitis 11/05/2022 08/05/2023 08/05/2023 Chronic anticoagulation 01/05/2021 03/2 12/2022 Closed fracture of shaft of humerus 06/24/2018 08/05/2023 Prostate cancer 09/30/2014 05/15/2022 Tobacco abuse 09/30/2014 09/18/2017 Memory loss 09/30/2014 05/17/2022 Diarrhea following gastrointestinal surgery 09/30/2014 11/04/2017 Rectal mass 02/04/2013 09/30/2014 documented as of this encounter (statuses as of 09/10/2023) [facility] illness Narrative* Problem Noted Date Diagnosed Date Resolved Date Bilateral pleural effusion 08/05/2023 08/05/2023 0 08/05/2023 Acute bronchitis 11/05/2022 08/05/2023 08/05/2023 Chronic anticoagulation 01/05/2021 03/2 12/2022 Closed fracture of shaft of humerus 06/24/2018 08/05/2023 Prostate cancer 09/30/2014 05/15/2022 Tobacco abuse 09/30/2014 09/18/2017 Memory loss 09/30/2014 05/17/2022 Diarrhea following gastrointestinal surgery 09/30/2014 11/04/2017 Rectal mass 02/04/2013 09/30/2014 documented as of this encounter (statuses as of 09/12/2023) [facility] Narrative* Problem Noted Date Diagnosed Date Resolved Date Bilateral pleural effusion 08/05/2023 08/05/2023 0 08/05/2023 Acute bronchitis 11/05/2022 08/05/2023 08/05/2023 Chronic anticoagulation 01/05/2021 03/2 12/2022 Closed fracture of shaft of humerus 06/24/2018 08/05/2023 Prostate cancer 09/30/2014 05/15/2022 Tobacco abuse 09/30/2014 09/18/2017 Memory loss 09/30/2014 05/17/2022 Diarrhea following gastrointestinal surgery 09/30/2014 11/04/2017 Rectal mass 02/04/2013 09/30/2014 documented as of this encounter (statuses as of 09/13/2023) [facility] Narrative* Problem Noted Date Diagnosed Date Resolved Date Bilateral pleural effusion 08/05/2023 08/05/2023 0 08/05/2023 Acute bronchitis 11/05/2022 08/05/2023 08/05/2023 Chronic anticoagulation 01/05/2021 03/2 12/2022 Closed fracture of shaft of humerus 06/24/2018 08/05/2023 Prostate cancer 09/30/2014 05/15/2022 Tobacco abuse 09/30/2014 09/18/2017 Memory loss 09/30/2014 05/17/2022 Diarrhea following gastrointestinal surgery 09/30/2014 11/04/2017 Rectal mass 02/04/2013 09/30/2014 documented as of this encounter (statuses as of 09/22/2023) [facility] illness Narrative* Problem Noted Date Diagnosed Date Resolved Date Bilateral pleural effusion 08/05/2023 08/05/2023 0 08/05/2023 Acute bronchitis 11/05/2022 08/05/2023 08/05/2023 Chronic anticoagulation 01/05/2021 03/2 12/2022 Closed fracture of shaft of humerus 06/24/2018 08/05/2023 Prostate cancer 09/30/2014 05/15/2022 Tobacco abuse 09/30/2014 09/18/2017 Memory loss 09/30/2014 05/17/2022 Diarrhea following gastrointestinal surgery 09/30/2014 11/04/2017 Rectal mass 02/04/2013 09/30/2014 documented as of this encounter (statuses as of 10/09/2023) [facility] of Past illness Narrative* Problem Noted Date Diagnosed Date Resolved Date Bilateral pleural effusion 08/05/2023 08/05/2023 0 08/05/2023 Acute bronchitis 11/05/2022 08/05/2023 08/05/2023 Chronic anticoagulation 01/05/2021 03/2 12/2022 Closed fracture of shaft of humerus 06/24/2018 08/05/2023 Prostate cancer 09/30/2014 05/15/2022 Tobacco abuse 09/30/2014 09/18/2017 Memory loss 09/30/2014 05/17/2022 Diarrhea following gastrointestinal surgery 09/30/2014 11/04/2017 Rectal mass 02/04/2013 09/30/2014 documented as of this encounter (statuses as of 10/09/2023) [facility] illness Narrative* Problem Noted Date Diagnosed Date Resolved Date Bilateral pleural effusion 08/05/2023 08/05/2023 0 08/05/2023 Acute bronchitis 11/05/2022 08/05/2023 08/05/2023 Chronic anticoagulation 01/05/2021 03/2 12/2022 Closed fracture of shaft of humerus 06/24/2018 08/05/2023 Prostate cancer 09/30/2014 05/15/2022 Tobacco abuse 09/30/2014 09/18/2017 Memory loss 09/30/2014 05/17/2022 Diarrhea following gastrointestinal surgery 09/30/2014 11/04/2017 Rectal mass 02/04/2013 09/30/2014 documented as of this encounter (statuses as of 01/15/2024) [facility] Narrative* Problem Noted Date Diagnosed Date Resolved Date Bilateral pleural effusion 08/05/2023 08/05/2023 0 08/05/2023 Acute bronchitis 11/05/2022 08/05/2023 08/05/2023 Chronic anticoagulation 01/05/2021 03/2 12/2022 Closed fracture of shaft of humerus 06/24/2018 08/05/2023 Prostate cancer 09/30/2014 05/15/2022 Tobacco abuse 09/30/2014 09/18/2017 Memory loss 09/30/2014 05/17/2022 Diarrhea following gastrointestinal surgery 09/30/2014 11/04/2017 Rectal mass 02/04/2013 09/30/2014 documented as of this encounter (statuses as of 01/27/2024) [facility] illness Narrative* Problem Noted Date Diagnosed Date Resolved Date Bilateral pleural effusion 08/05/2023 08/05/2023 0 08/05/2023 Acute bronchitis 11/05/2022 08/05/2023 08/05/2023 Chronic anticoagulation 01/05/2021 03/2 12/2022 Closed fracture of shaft of humerus 06/24/2018 08/05/2023 Prostate cancer 09/30/2014 05/15/2022 Tobacco abuse 09/30/2014 09/18/2017 Memory loss 09/30/2014 05/17/2022 Diarrhea following gastrointestinal surgery 09/30/2014 11/04/2017 Rectal mass 02/04/2013 09/30/2014 documented as of this encounter (statuses as of 01/27/2024) [facility] of Past illness Narrative* Problem Noted Date Diagnosed Date Resolved Date Bilateral pleural effusion 08/05/2023 08/05/2023 0 08/05/2023 Acute bronchitis 11/05/2022 08/05/2023 08/05/2023 Chronic anticoagulation 01/05/2021 03/2 12/2022 Closed fracture of shaft of humerus 06/24/2018 08/05/2023 Prostate cancer 09/30/2014 05/15/2022 Tobacco abuse 09/30/2014 09/18/2017 Memory loss 09/30/2014 05/17/2022 Diarrhea following gastrointestinal surgery 09/30/2014 11/04/2017 Rectal mass 02/04/2013 09/30/2014 documented as of this encounter (statuses as of 01/28/2024) [facility] of [facility] illness Narrative* Problem Noted Date Diagnosed Date Resolved Date Bilateral pleural effusion 08/05/2023 08/05/2023 0 08/05/2023 Acute bronchitis 11/05/2022 08/05/2023 08/05/2023 Chronic anticoagulation 01/05/202101/17 Closed fracture of shaft of humerus 06/24/2018 08/05/2023 Prostate cancer 09/30/2014 05/15/2022 Tobacco abuse 09/30/2014 09/18/2017 Memory loss 09/30/2014 05/17/2022 Diarrhea following gastrointestinal surgery 09/30/2014 11/04/2017 Rectal mass 02/04/2013 09/30/2014 documented as of this encounter (statuses as of 02/01/2024) [facility]* Patient Instructions* Vu Garcia Jr., MD - 07/15/2023 3:05 PM EDT Stop Ropinirole. 2. Start Sinemet (Carbidopa-Levodopa) 25/100mg -- 1 tablet at 8AM, 1 tablet at noon, 1 tablet at 4PM Start Sineme CR (Carbidopa-Levodopa CR) 50/200mg -- 1 tablet 9PM or bedtime. [facility] History of Present illness Narrative* Vu Garcia Jr., MD - 07/15/2023 2:26 PM EDT NEW PATIENT (CONSULT) HISTORY AND PHYSICAL EXAM PRIMARY CARE PHYSICIAN: Vu Pulido MD REASON FOR CONSULT: PD REFERRING PHYSICIAN: Michael Mera MD (per records never saw pt) CHIEF COMPLAINT: PD Consultation requested by Michael Mera MD for an opinion regarding chief complaint of Patient presents with: New Patient: Pt reported bilateral knee weakness, reported new fall x1 wk. and my final recommendations will be communicated back to the requesting physician by way of sharedmedical record or letter via [place] mail. HISTORY OF PRESENT ILLNESS: Ramses Gilliland is a 82 year old male, BMI 24.11 kg/m2 with a PMH significant for and per last visit with with Ila James CNP on 05/16/23: G20 Parkinson's disease (HCC) (primary encounter diagnosis) R26.89 Balance problem R29.898 Leg weakness, bilateral Comment: Hx of PD dx in 10/2020. At time of previous appointment, there was confusion surrounding his medications as pt was to DC Requip and instead start Sinemet, however, pt had reportedly stopped and restarted Requip while simultaneously taking Sinemet. Ultimately, decision was made to DC Requipand increase Sinemet to 1 tab TID. On discussion in office today, pt reports he is no longer takingSinemet (stopped the medication on his own) but is still taking Requip 1mg TID. Uncertain if he is actually taking medication as last RF was provided in 08/09 and pt presents with full bottle of medication. In addition, pt and spouse continue to report that pt does not have PD (see HPI). Exam today n otable for shuffling gait, retropulsion, and slow/uncoordinated movements as well as mild rigidity to RUE, though exam somewhat improved since previous appointment. Discussed that there may be other causes for exam findings such as L spine dz and hx of stroke (pt reports past stroke only presented with speech changes) which can cause similar sx he is experiencing as well. We discussed further workup and treatment including returning to PT (as pt only went twice and stopped due to increase pain-see below) as well as further imaging of L spine. Pt is vacationing in [place] in the upcoming months and reports they will consider imaging upon return in June. Also discussed medications and the importance of compliance with prescribed medications. As pt is currently taking Requip 1mg TID will continue medication at this time. However, have asked that they are seen within the movement disorder clinic for further evaluation and recommendations regarding PD dx as well as medications. They are agreeable and consult placed. Additionally, due to BLE weakness and balance concerns, consult previously placed for PT with pt discontinuing therapy after initial session d/t pain. He continued to report weakness to both knees and consult was offered for orthopedics, however, pt deferred at time of last OV. Again, recommend that if able to tolerate pt should return to PT to finish course of therapy. Important that pt stays active within limitations to prevent worsening symptoms. F01.50 Vascular dementia without behavioral disturbance, psychotic disturbance, mood disturbance, or anxiety, unspecified dementia severity ([facility]) Comment: Hx of vascular dementia diagnosed after CVA in 2014. Subjectively, sx remain stable. Denies hallucinations or dangerous behaviors. Modified MOCA completed with score of 15/25; unchanged since time of previous appointment. Testing again complicated by the fact that pt is [place] and does not have his glasses. Medication previously deferred. Revisited today, and again pt defers. Recommend completing mentally stimulating activities for brain exercise (i.e. crossword puzzles, social interactions...) as well as regular physical exercise within patient limitations. Again, would also recommend regular use of hearing aids and glasses to improve memory/cognition as well. 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 No further seizure activity since time of last appointment. He continues to take Keppra 750mg BID without SE or concerns. Will continue as previously prescribed. Goals for stroke prevention remain BP <140/90 and BG <140. Remain compliant with ASA 81mg and continue follow up with PCP and cardiology for risk factor management. If new sx should occur pt to immediately call 911 and present to ED. Maintain seizure precautions. Patient was supposed to be a movement specialist. Appears scheduled incorrectly but they wish to proceed with visit. Both pt and significant other are somewhat poor historian. States had first seizure 05/24/07. Last seizure many years ago. Appears due to stroke per prior records. Pt's adamant pt does not have PDbecause a physical therapists told them so. States take Ropinirole daily 1mg TID. I cannot clarify to what extent Sinemet was tried - see notes above. Patient last fall couple days ago. He states knees just give out. Other times if falls cannot get up. Difficulties getting out of chairs. I cannot get a clear answer as to how many strokes pt has had as indicates he has had multiple minis. Sense of smell intact. When asked about hand writing, states not too good because only went to 8th grade. Describes as small and messy. Is not indicating issues with fine motor tasks otherwise. No RBD symptoms. No back pain. No leg or joint pain. Falls started years ago - he would be mowing with the mower and would fall. Not driving anymore because he is too slow per his . When I ask what thinigs he is slow with, states walking. Subjectively they stat memory is ok. No swallowing issues. Pt is having multiple falls. No family history of neurologic disease. No bowel or bladder issues. REVIEW OF SYSTEMS GENERAL:No weight loss, malaise or fevers. HEENT:Negative for frequent or significant headaches, No changes in hearing or vision, no nose bleeds or other nasal problems NECK:Negative for lumps, goiter, pain and significant neck swelling RESPIRATORY: Negative for cough, wheezing or shortness of breath. CARDIOVASCULAR: Negative for chest pain, leg swelling or palpitations. GASTROINTESTINAL: Negative for abdominal discomfort, blood in stools or black stools or change in bowel habits GENITOURINARY: No history of dysuria, frequency or incontinence MUSCULOSKELETAL: Negative for joint pain or swelling, back pain or muscle pain. NEUROLOGIC:Negative for focal numbness or weakness, headaches and dizziness or syncope, vision changes, speech/language changes, changes in gait or falls -- besides those complaints as above in HPI. SKIN:Negative for lesions, rash, and itching. LAB/IMAGING: Reviewed and include: WBC (k/uL) Date Value 02/06/2023 7.65 RBC (m/uL) Date Value 02/06/2023 5.06 Hemoglobin (g/dL) Date Value 02/06/2023 16.0 Hematocrit (%) Date Value 02/06/2023 49.2 MCV (fL) Date Value 02/06/2023 97.2 MCH (pg) Date Value 02/06/2023 31.6 MCHC (g/dL) Date Value 02/06/2023 32.5 RDW-CV (%) Date Value 02/06/2023 12.9 Platelet Count (k/uL) Date Value 02/06/2023 248 MPV (fL) Date Value 02/06/2023 11.7 Glucose (mg/dL) Date Value 02/06/2023 80 BUN (mg/dL) Date Value 02/06/2023 11 Creatinine (mg/dL) Date Value 02/06/2023 0.74 Sodium (mmol/L) Date Value 02/06/2023 144 Potassium (mmol/L) Date Value 02/06/2023 4.3 Chloride (mmol/L) Date Value 02/06/2023 107 (H) CO2 (mmol/L) Date Value 02/06/2023 25 Protein, Total (g/dL) Date Value 02/06/2023 7.3 Albumin (g/dL) Date Value 02/06/2023 4.0 Calcium, Total (mg/dL) Date Value 02/06/2023 9.5 Alkaline Phosphatase (U/L) Date Value 02/15/2023 127 (H) Bilirubin, Total (mg/dL) Date Value 02/06/2023 0.3 AST (U/L) Date Value 02/06/2023 19 ALT (U/L) Date Value 02/06/2023 15 MEDICATIONS: levETIRAcetam (KEPPRA) 750 mg tablet Take 1 tablet by mouth twice daily. albuterol HFA (PROVENTIL HFA, VENTOLIN HFA) 90 mcg/actuation inhaler Inhale 2 Puffs as instructed every 6 hours as needed. aspirin, enteric coated (ASPIRIN, ENTERIC COATED) 81 mg EC tablet Take 81 mg by mouth once daily. cholecalciferol (VITAMIN D3) 1,000 unit tab tablet Take 2 capsules by mouth once daily. metoprolol tartrate, short acting, (LOPRESSOR) 25 mg tablet Take 25 mg by mouth twice daily. carbidopa-levodopa (SINEMET 25-100) 25-100 mg per tablet Take 1 tablet by mouth three times daily. Take three times daily with meals. (Patient not taking: Reported on 05/16/2023) rOPINIRole (REQUIP) 1 mg tablet TAKE 1 TABLET BY MOUTH THREE TIMES A DAY levothyroxine (SYNTHROID) 25 mcg tablet Take 1 tablet by mouth once daily. Take on empty stomach. For thyroid. Vitamin E, dl, acetate, 1,000 unit capsule Take 400 Units by mouth once daily. (Patient not taking:Reported on 05/16/2023) multivit-min/FA/lycopen/lutein (CENTRUM SILVER MEN ORAL) Take by mouth once daily. (Patient not taking: No sig reported) HISTORIES 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 10/02/2017 Dx 09/2017 and started on fosamax Prostate cancer ([facility]) 2008 45 radiation treatments-moderately differentiated adenocarcinoma Seizure disorder as sequela of cerebrovascular accident [facility] [facility]) 01/31/2015 Seizures ([facility]) 2006 Tobacco abuse 09/30/2014 Vascular dementia ([facility]) 09/30/2014 Vertebral compression fracture ([facility]) 11/04/2017 Vitamin D deficiency 09/19/2017 FAMILY HISTORY Problem Relation Age of Onset COPD Mother COPD Father Breast Cancer Sister Cancer Brother SOCIAL HISTORY Social History Tobacco Use Smoking status: Former Packs/day: 1.00 Years: 30.00 Additional pack years: 0.00 Total pack years: 30.00 Types: Cigarettes Smokeless tobacco: Never Substance Use Topics Alcohol use: No Drug use: No PHYSICAL EXAMINATION BP 126/78 Pulse 86 Resp 16 Wt 85.2 kg (187 lb 12.8 oz) SpO2 98% BMI 24.11 kg/m GENERAL EXAM: General appearance: NAD, flat affect. HEENT: NC/AT, nasal congestion absent, no oral lesions, membranes moist. NECK: No masses, supple. Lungs: CTA bilaterally. CV: RRR nl S1, S2 Extr: No cyanosis, clubbing or edema. Skin: Cool to touch. NEUROLOGICAL EXAM: General: Awake, alert, oriented x3 (person,place,time), speech fluent, no dysarthria; naming, repetition intact. Short and mcc memory intact. Did not complete full MOCA due to other conditions being evaluated. CN: PERRL, fundi awith no evidence of papilledema, EOMI and without nystagmus BUT IMPAIRED UP GAZE VERTICAL EYE MOVEMENTS, VFF to confrontation, facial sensation and strength are normal and symmetric, hearing is intact to finger rub bilaterally, palate and tongue movements are intact and symmetric.SCM and trapezius strength normal. Motor: Increased tone lisa UE, R>L. Bulk symmetric. Strength 5/5 x4 ext. Coordination: FNF with dysmetria in RUE, SHANNNE bradykin lisa, HTS intact. No tremors. Sensation: Light touch, vibration intact throughout. No evidence of neglect. Gait: Unable to rise from seated position and some difficulties even with upper exts. Stooped posture. Decreased stride with pt then taking 8 steps to turn 180 degrees. Decreased arm swing lisa. + Retropulsion on pull testing. Assessment and Plan: ASSESSMENT/PLAN: 1. Parkinson's disease (HCC) - ICD9: 332.0, ICD10: G20 (primary diagnosis) Patient with multiple endorsed signs and symptoms as well as exam findings suggestive of Parkinsonism vs possible Park + syndrome such as PSP given lack of tremor and noted impaired vertical eye movements today on exam. Dx d/w pt and his in detail and explained that this would be a clinical dx. I do believe that this is more than a conditioning issue. I also suspect that Requip 1mg TID is inadequate in treating symptoms and increasing dose would in turn increase risk of side effects. Thus,I am again asking patient be placed on trial of Sinemet 25/100mg TID at 8AM, Noon and 4PM followed by Sinemet CR dose of 50/200 at bedtime (~9PM). SE and ADRs reviewed with pt and his today. I would encourage that he continue with PT. Again, it appears pt was supposed to follow up with movement disorders center and if still questionning diagnosis explained another referral can be made. Also,at time of next visit, if tolerating Sinemet, not that a higher dose may still be necessary. Finally, I explained ddx which would also include Parkinson's due to vascular insults or NPH (denies incont inence). With no recent imaging in our records except a report from a CT scan 7 years ago at OSH showing per report chronic lisa lacunar infarcts, recommend new MRI brain be completed with which they agree. 2. 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 Both pt and limited historians. Unclear seizure history, as to workup and howdx confirmed. On Keppra for years. Thus, will continue for now. 3. History of stroke - ICD9: V12.54, ICD10: Z86.73 Again, as with above, limited records. No changes to therapy at this time. MRI brain above. 4. Vascular dementia without behavioral disturbance, psychotic disturbance, mood disturbance, or anxiety, unspecified dementia severity (HCC) - ICD9: 290.40, ICD10: F01.50 Unfortunately given other dx, was not available to evaluate at this visit. Will need full MOCA in future. No changes in meds given we are changing PD meds today. Vu Garcia MD I spent a total of 54 minutes on the date of the service which included preparing to see the patient, [id number] patient care, completing clinical documentation, obtaining and/or reviewing separately obtained history, performing a medically appropriate examination, counseling and educating the pat ient/family/caregiver, ordering medications, tests, or procedures, and communicating results to thepatient/family/caregiver. documented in this [facility]06[facility] History of Present illness Narrative* Karmen James, [employer] PRODUCTION MACHINE OPERATOR - 05/16/2023 1:45 PM EDT Images from the original note were not included. [facility] [place] Follow-up Visit Follow-up note May 16, 2023 HPI: Mr. Gilliland presents today for a follow-up visit. Per his previous visit on 02/07/23: G20 Parkinson's disease (HCC) (primary encounter diagnosis) R26.89 Balance problem R29.898 Leg weakness, bilateral Comment: Hx of PD dx in 10/2020. At time of previous appointment, sx persisted despite increased dose of Requip and decision was made to titrate down and DC Requip while simultaneously initiating Sinemet 1/2 tablet 25-100mg TID with meals. Uncertain if pt fully titrated down and off Requip as pt's reports that it was stopped but then restarted (?). He is also currently taking third dose of Sinemet at bedtime instead of at dinner. Discussed importance of taking medication as prescribed. Exam at time of OV today pt still with shuffling gait, retropulsion, and slow/uncoordinated movements. As his reports he is no longer taking Requip, will increase Sinemet to full tablet TID with meals. Also at time of previous appointment XR L spine ordered d/t BLE weakness and balance concerns. Results noting well preserved disc spaces, severely osteopenic bones, and kissing spine. Pt was advised to continue PT (for balance, strength, and lumbar pain). Per his pt reported pain with PT and did not return. Today he denies lumbar pain but does report that knees will become weak. Offered consult to orthopedics but pt declines. If able to tolerate would recommend returning to PT. Important that pt stays active within limitations to prevent worsening symptoms. F01.50 Vascular dementia without behavioral disturbance, psychotic disturbance, mood disturbance, or anxiety, unspecified dementia severity (HCC) Comment: Hx of vascular dementia diagnosed after CVA in 2013. MOCA repeated in office today with score of 15/25. Slight improvement from time of last visit. As noted at previous appointments, test iscomplicated by the fact that patient is extremely MARSHALL. He denies hallucinations or dangerous behaviors. Pt was previously prescribed Namenda, however, he did not start medication and at time of previous appointment alternative medication changes were made and therefore Namenda was deferred. Revisited medication today and pt defers initiation at this time. Recommend completing mentally stimulatingactivities for brain exercise (i.e. crossword puzzles, social interactions...) as well as regular ph ysical exercise within patient limitations. Again, would also recommend regular use of hearing aidsto improve memory/cognition as well. 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 He denies seizure activity since time ofprevious appointment. He remains stable on Keppra 750mg BID. Lab work recently ordered by PCP and Keppra level, CBC, and CMP currently in process. Note, previous levels drawn in 08/09 WNL. Will continue as previously prescribed at this time. Goals for stroke prevention remain BP <140/90 and BG <140. Remain compliant with ASA 81mg and continue follow up with PCP and cardiology for risk factormanagement. If new sx should occur pt to immediately call 911 and present to ED. Maintain seizure precautions. Denies seizure like activity. No LOC, loss of b/b, tongue/cheek bite. Still taking Keppra 750mg BID. Denies SE from medication. Denies new stroke symptoms; vision changes, speech changes, sensation changes. Still taking ASA 81mg. Not checking BP at home. BP elevated today but on review this is abnormal trend. Did fall one time in the bathroom. Got himself up. States his knees gave out. Was about to get in the shower. No LOC or head injury. No other residual symptoms. Memory has been about the same. Not forgetting names, getting lost in familiar places. Able to dress and bathe himself. No hallucinations, RBD. Not wandering. Not driving. Not cooking for himself; states he could if he needed to. Not taking medication for memory. Not taking Sinemet. He states his physical therapist told him he does not have PD. States he is still taking Requip. States the only problem is his knees. No tremors. No difficulty with buttons/zippers. Shuffles when he walks. Does not feel like legs freeze. Again states his knees give out on him. Slurred speech with stroke. Does not want to go to PT. Taking Requip TID. Modified MOCA 02/07/23 Visuospatial/exec (5-5) Incorrect cube/numbers/clock hands (2/4) Naming (0-3) (3/3) Memory Words, up to 2 trials: Face, Velvet, Anglican, Terese, Red (no points) 3/5 first try, 4/5 second try Attention forwards: 2 1 8 5 4 (0-1) (11/18) Attention backwards: 7 4 2 (0-1) (11/18) Tap for the A: F B A C M N A A J K L B A F A K D E A A A J A M O F A A B (1 point if 0 or 1 error) (Deferred) Serial subtraction by 7: [id number] (3 points for correct 4 or 5; 2 points for 2 or 3 correct; 1 point for 1 correct) 100-92-?- (Deferred) Language: repeat: I only know that Riley is the one to help today (0-1) (0/1) Language: repeat: The cat always hid under the couch when dogs were in the room (0-1) (1/1) Fluency: max words beginning with the letter F (1 point if 11 or more words) lll (0/1) Abstraction: practice banana-orange=fruit. Then train-bicycle (1) AND watch- ruler (1) total: (2) (2/2) Delayed recall: recall words: face, velvet, druze, terese, red (0-5) (1/5) Orientation: date(1), month(1), year(1), day(1), place(1), city(1) max 6 points (4/6) Total Score max 25 (15) Hearing impaired (Y or N) Y Vision impaired (Y or N) Y *Patient hard of hearing which complicates testing. 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) 01/31/2015 Seizures (HCC) 2006 Tobacco abuse 09/30/2014 Vascular dementia (HCC) 09/30/2014 Vertebral compression fracture (HCC) 11/04/2017 Vitamin D deficiency 09/19/2017 PAST SURGICAL HISTORY Procedure Laterality Date APPENDECTOMY remote CATARACT SURGERY, COMPLEX 2011, 2012 IOLs CHOLECYSTECTOMY 2004 laparoscopic CYSTOSCOPY 2008 PAST SURGICAL HISTORY OF 2007 prostate cancer external radiation rx PAST SURGICAL HISTORY OF 1980s surgery for PUD complications [place]roth II Current Outpatient Medications on File Prior to Visit Medication Sig carbidopa-levodopa (SINEMET 25-100) 25-100 mg per tablet Take 1 tablet by mouth three times daily. Take three times daily with meals. levETIRAcetam (KEPPRA) 750 mg tablet Take 1 tablet by mouth twice daily. albuterol HFA (PROVENTIL HFA, VENTOLIN HFA) 90 mcg/actuation inhaler Inhale 2 Puffs as instructed every 6 hours as needed. aspirin, enteric coated (ASPIRIN, ENTERIC COATED) 81 mg EC tablet Take 81 mg by mouth once daily. rOPINIRole (REQUIP) 1 mg tablet TAKE 1 TABLET BY MOUTH THREE TIMES A DAY levothyroxine (SYNTHROID) 25 mcg tablet Take 1 tablet by mouth once daily. Take on empty stomach. For thyroid. Cholecalciferol, Vitamin D3, 50 mcg (2,000 unit) cap Take by mouth. Vitamin E, dl, acetate, 1,000 unit capsule Take 400 Units by mouth once daily. metoprolol tartrate, short acting, (LOPRESSOR) 25 mg tablet Take 25 mg by mouth twice daily. multivit-min/FA/lycopen/lutein (CENTRUM SILVER MEN ORAL) Take by mouth once daily. (Patient not taking: Reported on 02/07/2023) No current facility-administered medications on file prior to visit. Social History Tobacco Use Smoking status: Former Packs/day: 1.00 Years: 30.00 Pack years: 30.00 Types: Cigarettes Smokeless tobacco: Never Substance Use Topics Alcohol use: No Drug use: No ALLERGIES No Known Allergies Review of Systems: Vision: denies blurring vison, double vision/diplopia Cardiopulmonary: denies chest pain, palpitations Respiratory: + shortness of breath GI: denies recent nausea, vomiting, diarrhea, constipation : denies incontinence Musculoskeletal: denies + weakness, + joint ache/pain Back/spine: denies low back or cervical pains Neuro: denies tremors, loss of feeling, dizziness, seizure, blackout, paresthesia, facial paresthesia, facial weakness, difficulty in speech, slurring of words, dysarthria, dysphagia, + memory loss, headache, + hard of hearing Physical Exam: 05/16/23 1339 BP: 153/88 Pulse: 70 Resp: 16 Temp: 37.1 C (98.8 F) TempSrc: Temporal SpO2: 97% Weight: 85.6 kg (188 lb 12.8 oz) Patient is alert and in no distress. Dress is appropriate. Mood is appropriate Breathing appears regular and unstressed Neurologic examination: Modified MOCA above. CN: Pupils equal and reactive to light, extraocular movements intact with no nystagmus, face is symmetric with no facial droop, hearing intact bilaterally, tongue is midline with no deviation, shoulder shrug is symmetric. Motor exam shows 5/5 strength symmetric through the upper and lower extremities in all groups tested. Sensory intact to light touch in all extremities. Vibratory sensation is symmetric all extremities. Deep tendon reflexes are decreased symmetrically at the biceps, brachioradialis, triceps, patella, and achilles bilaterally. Coordination: No dysmetria on finger to nose. No tremors noted. No drift seen. Hand/finger tap uncoordinated and slow bilaterally R>L. Mild rigidity RUE. Shuffling gait. Stooped posture. Unable to rise from chair without using arms. Decreased arm swing on R and L with R>L. Slow and unstable five step turn. Retropulsion on pull test. Using walker for longer distances. Gait slightly improved since previous appointment. Labs/studies: Component Latest Ref Rng & Units 02/06/2023 02/15/2023 WBC 3.70 - 11.00 k/uL 7.65 RBC 4.20 - 6.00 m/uL 5.06 Hemoglobin 13.0 - 17.0 g/dL 16.0 Hematocrit 39.0 - 51.0 % 49.2 MCV 80.0 - 100.0 fL 97.2 MCH 26.0 - 34.0 pg 31.6 MCHC 30.5 - 36.0 g/dL 32.5 RDW-CV 11.5 - 15.0 % 12.9 Platelet Count 150 - 400 k/uL 248 MPV 9.0 - 12.7 fL 11.7 Neut% % 58.2 Abs Neut (ANC) 1.45 - 7.50 k/uL 4.45 Lymph% % 26.1 Abs Lymph 1.00 - 4.00 k/uL 2.00 Keith% % 12.7 Abs Keith <0.87 k/uL 0.97 (H) Eosin% % 2.2 Abs Eosin <0.46 k/uL 0.17 Baso% % 0.5 Abs Baso <0.11 k/uL 0.04 Immature Gran % % 0.3 IMMATURE GRANS (ABS) <0.10 k/uL <0.03 NRBC /100 WBC 0.0 Absolute nRBC <0.01 k/uL <0.01 DTYPE Auto Protein, Total 6.3 - 8.0 g/dL 7.3 Albumin 3.9 - 4.9 g/dL 4.0 Calcium 8.5 - 10.2 mg/dL 9.5 Bilirubin, Total 0.2 - 1.3 mg/dL 0.3 Alkaline Phosphatase 38 - 113 U/L 115 (H) AST 14 - 40 U/L 19 ALT 10 - 54 U/L 15 Glucose 74 - 99 mg/dL 80 BUN 9 - 24 mg/dL 11 Creatinine 0.73 - 1.22 mg/dL 0.74 Sodium 136 - 144 mmol/L 144 Potassium 3.7 - 5.1 mmol/L 4.3 Chloride 97 - 105 mmol/L 107 (H) CO2 22 - 30 mmol/L 25 Anion Gap 9 - 18 mmol/L 12 eGFR >=60 mL/min/1.73m 91 Total Cholesterol, Nonfasting <200 mg/dL 167 Triglycerides, Nonfasting <150 mg/dL 180 (H) HDL Cholesterol, Nonfasting >39 mg/dL 29 (L) LDL Cholesterol, Nonfasting <100 mg/dL 102 (H) Non HDL Cholesterol, Nonfasting <130 mg/dL 138 (H) VLDL Cholesterol, Nonfasting <30 mg/dL 36 (H) Total Chol/HDL Ratio, Nonfasting <5.10 mg/dL 5.76 (H) LDL/HDL Ratio, Nonfasting <2.54 mg/dL 3.52 (H) Alk Phos Bone % 10.7 - 68.3 % 37.5 Bone Fraction 12.9 - 52.6 U/L 47.6 Alk Phos Liver % 26.0 - 86.2 % 62.5 Liver Fraction 16.0 - 69.3 U/L 79.4 (H) Alk Phos Intestine % 0.0 - 24.2 % 0.0 Intestine Fraction 0.0 - 16.3 U/L 0.0 TSH 0.270 - 4.200 mIU/L 3.890 Levetiracetam 12.0 - 46.0 ug/mL 28.3 XR L Spine 08/09/22: FINDINGS: There are five ong-gqj-nrydxdi lumbar vertebrae. Mild left-sided stricture seen on AP view. L2 and L3 vertebral body compression deformities/age indeterminate fractures visualized, involving the superior endplates. No subluxation The disc spaces are well preserved. There is significant osteophyte formation. The bones are severely osteopenic. Kissing spine seen on lateral view. CT Brain 07/02/18: Chronic involutional changes of the brain. Old left basal ganglia lacunar infarct. Assessment/Plan: G20 Parkinson's disease (HCC) (primary encounter diagnosis) R26.89 Balance problem R29.898 Leg weakness, bilateral Comment: Hx of PD dx in 10/2020. At time of previous appointment, there was confusion surrounding his medications as pt was to DC Requip and instead start Sinemet, however, pt had reportedly stopped and restarted Requip while simultaneously taking Sinemet. Ultimately, decision was made to DC Requipand increase Sinemet to 1 tab TID. On discussion in office today, pt reports he is no longer takingSinemet (stopped the medication on his own) but is still taking Requip 1mg TID. Uncertain if he is actually taking medication as last RF was provided in 08/09 and pt presents with full bottle of medication. In addition, pt and spouse continue to report that pt does not have PD (see HPI). Exam today n otable for shuffling gait, retropulsion, and slow/uncoordinated movements as well as mild rigidity to RUE, though exam somewhat improved since previous appointment. Discussed that there may be other causes for exam findings such as L spine dz and hx of stroke (pt reports past stroke only presented with speech changes) which can cause similar sx he is experiencing as well. We discussed further workup and treatment including returning to PT (as pt only went twice and stopped due to increase pain-see below) as well as further imaging of L spine. Pt is vacationing in [place] in the upcoming months and reports they will consider imaging upon return in June. Also discussed medications and the importance of compliance with prescribed medications. As pt is currently taking Requip 1mg TID will continue medication at this time. However, have asked that they are seen within the movement disorder clinic for further evaluation and recommendations regarding PD dx as well as medications. They are agreeable and consult placed. Additionally, due to BLE weakness and balance concerns, consult previously placed for PT with pt discontinuing therapy after initial session d/t pain. He continued to report weakness to both knees and consult was offered for orthopedics, however, pt deferred at time of last OV. Again, recommend that if able to tolerate pt should return to PT to finish course of therapy. Important that pt stays active within limitations to prevent worsening symptoms. F01.50 Vascular dementia without behavioral disturbance, psychotic disturbance, mood disturbance, or anxiety, unspecified dementia severity (HCC) Comment: Hx of vascular dementia diagnosed after CVA in 2013. Subjectively, sx remain stable. Denies hallucinations or dangerous behaviors. Modified MOCA completed with score of 15/25; unchanged since time of previous appointment. Testing again complicated by the fact that pt is MARSHALL and does not have his glasses. Medication previously deferred. Revisited today, and again pt defers. Recommend completing mentally stimulating activities for brain exercise (i.e. crossword puzzles, social interactions...) as well as regular physical exercise within patient limitations. Again, would also recommend regular use of hearing aids and glasses to improve memory/cognition as well. 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 No further seizure activity since time of last appointment. He continues to take Keppra 750mg BID without SE or concerns. Will continue as previously prescribed. Goals for stroke prevention remain BP <140/90 and BG <140. Remain compliant with ASA 81mg and continue follow up with PCP and cardiology for risk factor management. If new sx should occur pt to immediately call 911 and present to ED. Maintain seizure precautions. Office Visit on 05/16/23 CONSULT TO NEUROLOGY Karmen James APRN.JOSE ANGEL I spent a total of 50 minutes on the date of the service which included preparing to see the patient, [id number] patient care, completing clinical documentation, obtaining and/or reviewing separately obtained history, performing a medically appropriate examination, counseling and educating the pat ient/family/caregiver, and ordering medications, tests, or procedures. documented in this encounter[facility]03-24-[facility]23 Miscellaneous Notes* Telephone Encounter - Emili Serna MA - 02/08/2023 10:10 AM EDT notified. Emili Serna MA * Telephone Encounter - Rachelle Herman - 02/07/2023 2:25 PM EDT Left voicemail advising patient to return call for results. Rachelle Herman * Telephone Encounter - Vu Pulido MD - 02/07/2023 2:22 PM EDT Labs are stable, other than alk phos, a blood enzyme is minimally elevated. Recheck in one week documented in this encounterZ[facility]03-23-[facility]23 Instructions* Patient Instructions* Karmen James APRN.CNP - 02/07/2023 11:26 AM EDT Increase Sinemet to full tablet three times daily with meals. Do not restart Requip. documented in this encounterZ[facility]03-23-[facility] History of Present illness Narrative* Karmen James APRN.CNP - 02/07/2023 10:45 AM EDT Images from the original note were not included. [facility] [place] Follow-up Visit Follow-up note February 07, 2023 HPI: Mr. Gilliland presents today for a follow-up visit. Per his previous visit on 08/09/22: G20 Parkinson's disease (HCC) (primary encounter diagnosis) R26.89 Balance problem R29.898 Leg weakness, bilateral Comment: Patient with history of PD diagnosed in 10/2020 and started on Requip 0.5mg TID with improvement of related symptoms. However, Requip has since been titrated to 1mg TID without further improvement of symptoms. Since time of previous appointment he has attempted to complete PT but due to pain he stopped course of therapy. He does report multiple falls since previous appointment and is unstable with ambulation. Exam remains unchanged with shuffling gait, retropulsion, and slow/uncoordinated movements. After discussion today, pt is agreeable to titrate down Requip and instead transitionto Sinemet 1/2 tablet 25- 100mg TID with meals. In addition, he reports generalized weakness to BLE with episodes of his legs giving out beneath him. Will order XR lumbar spine to evaluate for degenerative changes possible contributing to leg weakness. Discussed importance of physical therapy and would recommend returning and completing therapy as previously prescribed. Pt should continue to use assistive device at home for stability and attempt to participate in physical activities and HEP provided by PT within limitations. 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 He denies seizure activity since time ofprevious appointment and remains stable on Keppra 750mg BID. Lab work reviewed and will order Keppra level. Will continue as previously prescribed. Goals for stroke prevention remain BP <140/90 and BG <140. Remain compliant with ASA 81mg and continue follow up with PCP and cardiology for risk factor management. If new sx should occur pt to immediately call 911 and present to ED. F01.50 Vascular dementia without behavioral disturbance (HCC) Comment: Hx of vascular dementia diagnosed after CVA in 2013. MOCA repeated in office today with slight decrease in score; 11/14. However, as previously noted, pt is very MARSHALL which complicates and may impact exam. Declines significant change in memory or dangerous behavior/hallucinations. Previously prescribed Namenda, however, he did not start medication and will defer at time of appointment today given change in medications above. Recommend completing mentally stimulating activities for brainexercise (i.e. crossword puzzles, social interactions...) as well as regular physical exercise within patient limitations. Again, would also recommend regular use of hearing aids to improve memory/cognition as well. His states that the therapist at [facility] told him he doesn't have Parkinson's. He had painat therapy and stopped going. Shuffling a little when walking. His states his knees will give out on him. Does not see orthopedics and does not want to follow up. Has had a fall two weeks ago. Did not hit his head. No difficulty with fine motor movements. No tremor. Not yelling out in sleep oracting out dreams. States he sleeps well; all night. Denies hallucinations. Still completing ADL's.Dressing himself appropriately. Eats three meals a day. States he he really only gets up to use the bathroom. Not getting much exercise due to the weather. No further low back pain. He states memory has been alright. No worsening of memory. Not forgetting family/friends names. Notgetting lost in familiar places. Receives help with medications. Denies seizure activity; loss of b/b, convulsions, tongue bite. Leaving for [place] in May. Sometimes checks BP at home. States it is usually WNL. Has been taking Sinemet since last appointment. Had been off the Requip, however, his restarted the medication for about a week. Denies dizziness, lightheadedness, constipation, focal weakness, speech or vision changes, LOC, syncope. Asking for RF of albuterol to open his airways when in [place]. Pt presents with pill bottle of Sinemet filled on 11/20/22. Still with multiple pills in the bottle. Prescription was written for 45 tablets for one month. Takes in AM, noon, and bedtime. Then later states taking 1/2 tablet at 5pm. Modified MOCA 02/07/23 Visuospatial/exec (5-5) Incorrect cube/clock hands (2/4) Naming (0-3) (3/3) Memory Words, up to 2 trials: Face, Velvet, Anglican, Terese, Red (no points) 5/5 first try, 5/5 second try Attention forwards: 2 1 8 5 4 (0-1) (11/18) Attention backwards: 7 4 2 (0-1) (11/18) Tap for the A: F B A C M N A A J K L B A F A K D E A A A J A M O F A A B (1 point if 0 or 1 error) (Deferred) Serial subtraction by 7: [id number] (3 points for correct 4 or 5; 2 points for 2 or 3 correct; 1 point for 1 correct) 100-92-?- (Deferred) Language: repeat: I only know that Riley is the one to help today (0-1) (0/1) Language: repeat: The cat always hid under the couch when dogs were in the room (0-1) (1/1) Fluency: max words beginning with the letter F (1 point if 11 or more words) l (0/1) Abstraction: practice banana-orange=fruit. Then train-bicycle (1) AND watch- ruler (1) total: (2) (1/2) Delayed recall: recall words: face, velvet, druze, terese, red (0-5) (2/5) Orientation: date(1), month(1), year(1), day(1), place(1), city(1) max 6 points (4/6) Total Score max 25 (15) Hearing impaired (Y or N) Y Vision impaired (Y or N) N *Patient extremely hard of hearing which greatly complicates testing. 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) 01/31/2015 Seizures (HCC) 2006 Tobacco abuse 09/30/2014 Vascular dementia (HCC) 09/30/2014 Vertebral compression fracture (HCC) 11/04/2017 Vitamin D deficiency 09/19/2017 PAST SURGICAL HISTORY Procedure Laterality Date APPENDECTOMY remote CATARACT SURGERY, COMPLEX 2011, 2012 IOLs CHOLECYSTECTOMY 2005 laparoscopic CYSTOSCOPY 2008 PAST SURGICAL HISTORY OF 2007 prostate cancer external radiation rx PAST SURGICAL HISTORY OF surgery for PUD complications [facility] II Current Outpatient Medications on File Prior to Visit Medication Sig carbidopa-levodopa (SINEMET 25-100) 25-100 mg per tablet TAKE 0.5 TABLETS BY MOUTH THREE TIMES DAILY. TAKE THREE TIMES DAILY WITH MEALS. levETIRAcetam (KEPPRA) 750 mg tablet Take 1 tablet by mouth twice daily. albuterol HFA (PROVENTIL HFA, VENTOLIN HFA) 90 mcg/actuation inhaler Inhale 2 Puffs as instructed every 6 hours as needed. aspirin, enteric coated (ASPIRIN, ENTERIC COATED) 81 mg EC tablet Take 81 mg by mouth once daily. rOPINIRole (REQUIP) 1 mg tablet TAKE 1 TABLET BY MOUTH THREE TIMES A DAY levothyroxine (SYNTHROID) 25 mcg tablet Take 1 tablet by mouth once daily. Take on empty stomach. For thyroid. Cholecalciferol, Vitamin D3, 50 mcg (2,000 unit) cap Take by mouth. Vitamin E, dl, acetate, 1,000 unit capsule Take 400 Units by mouth once daily. metoprolol tartrate, short acting, (LOPRESSOR) 25 mg tablet Take 25 mg by mouth twice daily. multivit-min/FA/lycopen/lutein (CENTRUM SILVER MEN ORAL) Take by mouth once daily. No current facility-administered medications on file prior to visit. Social History Tobacco Use Smoking status: Former Packs/day: 1.00 Years: 30.00 Pack years: 30.00 Types: Cigarettes Smokeless tobacco: Never Substance Use Topics Alcohol use: No Drug use: No ALLERGIES No Known Allergies Review of Systems: Vision: denies blurring vison, double vision/diplopia Cardiopulmonary: denies chest pain, palpitations Respiratory: + shortness of breath GI: denies recent nausea, vomiting, diarrhea, constipation : denies incontinence Musculoskeletal: denies + weakness, joint ache/pain Back/spine: denies low back, mid back, or cervical pains Neuro: denies tremors, loss of feeling, dizziness, seizure, blackout, paresthesia, facial paresthesia, facial weakness, difficulty in speech, slurring of words, dysarthria, dysphagia, + memory loss, headache, + hard of hearing Physical Exam: 02/07/23 1048 BP: 140/82 Pulse: 70 Resp: 16 Temp: 36.3 C (97.4 F) SpO2: 95% Weight: 84.5 kg (186 lb 3.2 oz) Patient is alert and in no distress. Dress is appropriate. Mood is appropriate Breathing appears regular and unstressed Neurologic examination: Modified MOCA above. CN: Pupils equal and reactive to light, extraocular movements intact with no nystagmus, face is symmetric with no facial droop, hearing intact bilaterally, tongue is midline with no deviation, shoulder shrug is symmetric. Motor exam shows 5/5 strength symmetric through the upper and lower extremities in all groups tested. Sensory intact to light touch in all extremities. Vibratory sensation is intact and symmetric all extremities. Deep tendon reflexes are symmetric at the biceps, brachioradialis, triceps, patella, and achilles bilaterally. Coordination: No dysmetria on finger to nose. No tremors noted. No drift seen. Toe tap slow on R. Hand/finger tap uncoordinated and slow bilaterally R>L. Mild rigidity RUE. Shuffling gait. Stooped posture. Unable to rise from chair without using arms. Decreased arm swing on R and L with R>L. Slow five step turn. Retropulsion on pull test. Using walker. Labs/studies: XR L Spine 08/09/22: FINDINGS: There are five [id number] lumbar vertebrae. Mild left-sided stricture seen on AP view. L2 and L3 vertebral body compression deformities/age indeterminate fractures visualized, involving the superior endplates. No subluxation The disc spaces are well preserved. There is significant osteophyte formation. The bones are severely osteopenic. Kissing spine seen on lateral view. Component Latest Ref Rng & Units 05/17/2022 WBC 3.70 - 11.00 k/uL 5.47 RBC 4.20 - 6.00 m/uL 4.74 Hemoglobin 13.0 - 17.0 g/dL 14.5 Hematocrit 39.0 - 51.0 % 45.4 MCV 80.0 - 100.0 fL 95.8 MCH 26.0 - 34.0 pg 30.6 MCHC 30.5 - 36.0 g/dL 31.9 RDW-CV 11.5 - 15.0 % 13.3 Platelet Count 150 - 400 k/uL 265 MPV 9.0 - 12.7 fL 11.8 Neut% % 57.7 Abs Neut (ANC) 1.45 - 7.50 k/uL 3.15 Lymph% % 24.3 Abs Lymph 1.00 - 4.00 k/uL 1.33 Keith% % 15.0 Abs Keith <0.87 k/uL 0.82 Eosin% % 1.6 Abs Eosin <0.46 k/uL 0.09 Baso% % 0.7 Abs Baso <0.11 k/uL 0.04 Immature Gran % % 0.7 IMMATURE GRANS (ABS) <0.10 k/uL 0.04 NRBC /100 WBC 0.0 Absolute nRBC <0.01 k/uL <0.01 DTYPE Auto Protein, Total 6.3 - 8.0 g/dL 7.1 Albumin 3.9 - 4.9 g/dL 4.0 Calcium 8.5 - 10.2 mg/dL 9.4 Bilirubin, Total 0.2 - 1.3 mg/dL 0.2 Alkaline Phosphatase 38 - 113 U/L 94 AST 14 - 40 U/L 33 ALT 10 - 54 U/L 39 Glucose 74 - 99 mg/dL 86 BUN 9 - 24 mg/dL 13 Creatinine 0.73 - 1.22 mg/dL 0.92 Sodium 136 - 144 mmol/L 139 Potassium 3.7 - 5.1 mmol/L 4.3 Chloride 97 - 105 mmol/L 104 CO2 22 - 30 mmol/L 23 Anion Gap 9 - 18 mmol/L 12 eGFR >=60 mL/min/1.73m 84 Previously Reviewed: CT Brain 07/02/18: Chronic involutional changes of the brain. Old left basal ganglia lacunar infarct. Component Latest Ref Rng & Units 03/09/2021 Protein, Total 6.3 - 8.0 g/dL 7.0 Albumin 3.9 - 4.9 g/dL 4.2 Calcium 8.5 - 10.2 mg/dL 9.1 Bilirubin, Total 0.2 - 1.3 mg/dL 0.2 Alkaline Phosphatase 38 - 113 U/L 103 AST 14 - 40 U/L 34 Glucose 74 - 99 mg/dL 96 BUN 9 - 24 mg/dL 11 Creatinine 0.73 - 1.22 mg/dL 0.91 Sodium 136 - 144 mmol/L 140 Potassium 3.7 - 5.1 mmol/L 4.2 Chloride 97 - 105 mmol/L 101 CO2 22 - 30 mmol/L 28 Anion Gap 9 - 18 mmol/L 11 ALT 10 - 54 U/L 58 (H) eGFR- >60 eGFR-All Other Races . >60 WBC 3.70 - 11.00 k/uL 6.88 RBC 4.20 - 6.00 m/uL 4.94 Hemoglobin 13.0 - 17.0 g/dL 15.2 Hematocrit 39.0 - 51.0 % 47.6 MCV 80.0 - 100.0 fL 96.4 MCH 26.0 - 34.0 pG 30.8 MCHC 30.5 - 36.0 g/dL 31.9 RDW-CV 11.5 - 15.0 % 13.7 Platelet Count 150 - 400 k/uL 276 MPV 9.0 - 12.7 fL 11.8 Absolute nRBC <0.01 k/uL <0.01 Levetiracetam 12.0 - 46.0 ug/mL 19.4 Assessment/Plan: G20 Parkinson's disease (HCC) (primary encounter diagnosis) R26.89 Balance problem R29.898 Leg weakness, bilateral Comment: Hx of PD dx in 10/2020. At time of previous appointment, sx persisted despite increased dose of Requip and decision was made to titrate down and DC Requip while simultaneously initiating Sinemet 1/2 tablet 25-100mg TID with meals. Uncertain if pt fully titrated down and off Requip as pt's reports that it was stopped but then restarted (?). He is also currently taking third dose of Sinemet at bedtime instead of at dinner. Discussed importance of taking medication as prescribed. Exam at time of OV today pt still with shuffling gait, retropulsion, and slow/uncoordinated movements. As his reports he is no longer taking Requip, will increase Sinemet to full tablet TID with meals. Also at time of previous appointment XR L spine ordered d/t BLE weakness and balance concerns. Results noting well preserved disc spaces, severely osteopenic bones, and kissing spine. Pt was advised to continue PT (for balance, strength, and lumbar pain). Per his pt reported pain with PT and did not return. Today he denies lumbar pain but does report that knees will become weak. Offered consult to orthopedics but pt declines. If able to tolerate would recommend returning to PT. Important that pt stays active within limitations to prevent worsening symptoms. F01.50 Vascular dementia without behavioral disturbance, psychotic disturbance, mood disturbance, or anxiety, unspecified dementia severity (HCC) Comment: Hx of vascular dementia diagnosed after CVA in 2013. MOCA repeated in office today with score of 15/25. Slight improvement from time of last visit. As noted at previous appointments, test iscomplicated by the fact that patient is extremely MARSHALL. He denies hallucinations or dangerous behaviors. Pt was previously prescribed Namenda, however, he did not start medication and at time of previous appointment alternative medication changes were made and therefore Namenda was deferred. Revisited medication today and pt defers initiation at this time. Recommend completing mentally stimulatingactivities for brain exercise (i.e. crossword puzzles, social interactions...) as well as regular ph ysical exercise within patient limitations. Again, would also recommend regular use of hearing aidsto improve memory/cognition as well. 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 He denies seizure activity since time ofprevious appointment. He remains stable on Keppra 750mg BID. Lab work recently ordered by PCP and Keppra level, CBC, and CMP currently in process. Note, previous levels drawn in 08/09 WNL. Will continue as previously prescribed at this time. Goals for stroke prevention remain BP <140/90 and BG <140. Remain compliant with ASA 81mg and continue follow up with PCP and cardiology for risk factormanagement. If new sx should occur pt to immediately call 911 and present to ED. Maintain seizure precautions. Karmen James APRN.JOSE ANGEL I spent a total of 45 minutes on the date of the service which included preparing to see the patient, [id number] patient care, completing clinical documentation, obtaining and/or reviewing separately obtained history, performing a medically appropriate examination, counseling and educating the pat ient/family/caregiver, and ordering medications, tests, or procedures. documented in this encounterZ[facility]01-10-2023 Miscellaneous Notes* Telephone Encounter - Talya Sanchez - 11/27/2022 2:36 PM EST Patient has been identified by name and date of : Yes Requested Prescriptions Pending Prescriptions Disp Refills levothyroxine (SYNTHROID) 25 mcg tablet 90 tablet 3 Sig: Take 1 tablet by mouth once daily. Take on empty stomach. For thyroid. RX INSTRUCTIONS: Patient aware RX will be sent to pharmacy. No need to notify patient. [place] [facility] [place] in this encounterZanesville City [facility]01-04-2023 Miscellaneous Notes* Telephone Encounter - Luma Alvarenga LPN - 11/21/2022 11:37 AM EST Voicemail not set up. Letter put in the mail to patient. * Telephone Encounter - Luma Alvarenga LPN - 11/21/2022 10:[address] Pulido desk to sign. * Telephone Encounter - Vu Pulido MD - 11/20/2022 2:59 PM EST Letter created. Needs printed. Mine is not going to printer. * Telephone Encounter - Aida Jones - 11/20/2022 2:30 PM EST Patient would like a handicap sticker, please assist and advice. OSMEL Goldstein 11/20/2022 documented in this encounterZanesville City [facility]01-03-2023 Miscellaneous Notes* Telephone Encounter - Aida Jones - 11/20/2022 2:28 PM EST Patient has been identified by name and date of : Yes, Provider Date 11/20/2022 Time 2:29 Patient phones for refill(s): Requested Prescriptions Pending Prescriptions Disp Refills levETIRAcetam (KEPPRA) 750 mg tablet 180 tablet 3 Sig: Take 1 tablet by mouth twice daily. Date of last office visit in primary care: 10/05/2022 Last 2 Encounter Wt Readings: Date: Wt: 10/05/2022 86.6 kg (191 lb) 08/09/2022 87.5 kg (193 lb) Previous labs/tests for medication: Not applicable Please advise. Thank you. Aida Jones documented in this encounterZanesville City Hospital01-03-2023 Miscellaneous Notes* Telephone Encounter - Deepali Brenner MA - 11/20/2022 9:14 AM EST Patient has been identified by name and date of : Yes Last office visit in this department: 08/09/2022 NOV 12/20/22 RX INSTRUCTIONS: Pharmacy initiated this request. No need to notify patient. Patient phones requesting refills as follows: Requested Prescriptions Pending Prescriptions Disp Refills carbidopa-levodopa (SINEMET 25-100) 25-100 mg per tablet [Pharmacy Med Name: CARBIDOPA-LEVODOPA 25-100 TAB] 45 tablet 2 Sig: TAKE 0.5 TABLETS BY MOUTH THREE TIMES DAILY. TAKE THREE TIMES DAILY WITH MEALS. Please review and advise. Deepali Brenner MA documented in this encounterZanesville City Hospital11-18-2022 History of Present illness Narrative* Vu Pulido MD - 10/05/2022 2:04 PM EST Patient presents with: Hospital F/U HPI: Patient presents today for office visit for HOSPITAL/ER FOLLOW UP: Reason for visit: weakness/falls reports was out of breath Which facility: [facility] Date of visit: 09/23/22 Diagnosis: weakness Testing done: chest x-ray, CBC Treatment given: albuterol inhaler Current symptoms: doing much better Reviewed Er notes. They felt xray showed atelectasis. No acute etiology found. Has albuterol. Has used about 25 doses since the sixth. Not currently wheezing. No pain. Breathing is good. No cough. No swelling. MEDICATIONS: Current Outpatient Medications Medication Sig albuterol HFA (PROVENTIL HFA, VENTOLIN HFA) 90 mcg/actuation inhaler Inhale 2 Puffs as instructed every 6 hours as needed. aspirin, enteric coated (ASPIRIN, ENTERIC COATED) 81 mg EC tablet Take 81 mg by mouth once daily. carbidopa-levodopa (SINEMET) 25-100 mg per tablet Take 0.5 tablets by mouth three times daily. Takethree times daily with meals. levothyroxine (SYNTHROID) 25 mcg tablet Take 1 tablet by mouth once daily. Take on empty stomach. For thyroid. Cholecalciferol, Vitamin D3, 50 mcg (2,000 unit) cap Take by mouth. Vitamin E, dl, acetate, 1,000 unit capsule Take 400 Units by mouth once daily. levETIRAcetam (KEPPRA) 750 mg tablet Take 1 tablet by mouth twice daily. metoprolol tartrate, short acting, (LOPRESSOR) 25 mg tablet Take 25 mg by mouth twice daily. multivit-min/FA/lycopen/lutein (CENTRUM SILVER MEN ORAL) Take by mouth once daily. rOPINIRole (REQUIP) 1 mg tablet TAKE 1 TABLET BY MOUTH THREE TIMES A DAY No current facility-administered medications for this visit. ALLERGIES: ALLERGIES No Known Allergies 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 10/02/2017 Dx 09/2017 and started on fosamax Prostate cancer (HCC) 2007 44 radiation treatments-moderately differentiated adenocarcinoma 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) 01/31/2015 Seizures (HCC) 2007 Tobacco abuse 09/30/2014 Vascular dementia (HCC) 09/30/2014 Vertebral compression fracture (HCC) 11/04/2017 Vitamin D deficiency 09/19/2017 PAST SURGICAL HISTORY Procedure Laterality Date APPENDECTOMY remote CATARACT SURGERY, COMPLEX 2011, 2012 IOLs CHOLECYSTECTOMY 2004 laparoscopic CYSTOSCOPY 2008 PAST SURGICAL HISTORY OF 2007 prostate cancer external radiation rx PAST SURGICAL HISTORY OF surgery for PUD complications Billroth II FAMILY HISTORY Problem Relation Age of Onset COPD Mother COPD Father Breast Cancer Sister Cancer Brother Social History Tobacco Use Smoking status: Former Packs/day: 1.00 Years: 30.00 Pack years: 30.00 Types: Cigarettes Smokeless tobacco: Never Substance Use Topics Alcohol use: No Drug use: No Reviewed current medications, allergies, past medical history, surgical history, family history andsocial history today. REVIEW OF SYSTEMS All other reviewed and negative other than HPI. VITALS: BP 122/70 Pulse 63 Wt 86.6 kg (191 lb) SpO2 99% BMI 24.52 kg/m Last 4 Encounter Wt Readings: Date: Wt: 08/09/2022 87.5 kg (193 lb) 08/09/2022 88 kg (194 lb) 05/17/2022 90.3 kg (199 lb) 04/26/2022 93.1 kg (205 lb 3.2 oz) PHYSICAL EXAMINATION: General appearance: Well appearing, alert, in no acute distress, well-hydrated, well nourished. Skin: Skin color, texture, turgor normal, no suspicious rashes or lesions Head: Normocephalic, no masses, lesions, tenderness or abnormalities Back: Normal exam Lungs: Lungs clear to auscultation. No wheezing, rhonchi, rales Heart: RRR without murmur, gallop, or rubs. No ectopy Extremities: No deformities, edema, skin discoloration, clubbing or cyanosis. Good capillary refill. ASSESSMENT/PLAN: 1. SOB (shortness of breath) - ICD9: 786.05, ICD10: R06.02 (primary diagnosis) - patient declines pfts Continue meds prn. Call if any issues. 2. Chronic obstructive pulmonary disease, unspecified COPD type (HCC) - ICD9: 496, ICD10: J44.9 Vu Pulido documented in this encounterZanesville City Hospital10-18-2022 Miscellaneous Notes* Telephone Encounter - MARLA Acuña - 09/04/2022 1:09 PM EDT TC to patient who verbalizes understanding of providers message below. Pt states that he does not like physical therapy and it does not help him. When asked if he would like a consult to pain med or spine med pt states he is doing okay right now and does not want a consult. Pt informed if he changes his mind to give us a call. MARLA Acuña * Telephone Encounter - MARLA Acuña - 09/04/2022 1:07 PM EDT ----- Message from Karmen James APRN.[employer] PRODUCTION MACHINE OPERATOR sent at 09/04/2022 1:05 PM EDT ----- XR of lumbar spine shows both compression deformities and kissing spine. Both of these findings maylead to low back pain. No significant disc space narrowing was seen on imaging. I would recommend continuing with physical therapy, however, if pain is too severe could also consider consult to spinemedicine/pain management. documented in this encounterZanesville City Hospital09-26-2022 Miscellaneous Notes* Telephone Encounter - Rachelle Herman - 08/13/2022 8:35 AM EDT Spoke with Ramses and relayed message. He verbalized understanding and had no questions at this time. Rachelle Herman * Telephone Encounter - Rachelle Herman - 08/13/2022 8:33 AM EDT ----- Message from Olinda Chester APRN.CHOCOL[employer] PRODUCTION MACHINE OPERATOR sent at 08/13/2022 7:28 AM EDT ----- Can please let patient know that his labwork shows that his thyroid is at a stable level. Please continue the same dose of medication. Olinda Chester APRN.CHOCOLATE PRODUCTION MACHINE OPERATOR documented in this encounterZanesville City Hospital09-22-2022 History of Present illness Narrative* Vu Pulido MD - 08/09/2022 4:20 PM EDT Patient presents with: Follow Up: Neuro is stopping requip and starting carbidopa-levodopa HPI: Patient presents today for office visit for follow up. Cardiology has now gotten him off of amiodarone. Saw neurology and adjusted meds. He is taking his meds correctly per his . Only did three physical therapy visits and stopped because they made him sore. Did cut his face in [place] and cut his face. Got a tetanus shot. No injury. No chest pain or shortness of breath. No edema. See last ov: Was in the hospital on 04/23-04/24 overdosed accidentally with a large amount of synthroid. His thinks he took at least 20 pills. They held it and he was to follow up with us the week later. States he felt good. No chest pain or palpitations. Did an echo. And held synthroid. His troponin was up but felt to possibly be demand ischemia. Looking at old records he was to stop eliquis, lasix and amiodarone. They apparently are still taking the amiodarone. Will see if we can get them back into cardiology for follow up on his elevated troponin and verify what he is to be on. HTN: Patient is compliant with meds Yes Syncope: No. Headache: No. Dizziness: No. Parkison's/NEURO:sees neurology A fib:sees [place] [facility]. See above. Still taking amiodarone. Notes say he was to stop it. Hadelevated troponins. HYPOTHYROID:no meds since off of synthroid. URO:no urinary issues. Was in [facility], 04/28-05/01/22. Seen at urgent care and put on Kelfex for cellulitis. Troponin was up there as well. Xray showed left lung atelectasis vs infiltrate. Was diagnosed with mild chf but not sent home lasix. No cough. Switched to IV doxycycline. Switched to oral doxycycline. No fever or chills. No nausea or vomiting. Rash is still persistent per . says it is better. No itching or redness or warmth. says she is going on vacation for a month starting tomorrow to [place]. MEDICATIONS: Current Outpatient Medications Medication Sig rOPINIRole (REQUIP) 1 mg tablet TAKE 1 TABLET BY MOUTH THREE TIMES A DAY levothyroxine (SYNTHROID) 25 mcg tablet Take 1 tablet by mouth once daily. Take on empty stomach. For thyroid. Cholecalciferol, Vitamin D3, 50 mcg (2,000 unit) cap Take by mouth. Vitamin E, dl, acetate, 1,000 unit capsule Take 400 Units by mouth once daily. levETIRAcetam (KEPPRA) 750 mg tablet Take 1 tablet by mouth twice daily. metoprolol tartrate, short acting, (LOPRESSOR) 25 mg tablet Take 25 mg by mouth twice daily. multivit-min/FA/lycopen/lutein (CENTRUM SILVER MEN ORAL) Take by mouth once daily. carbidopa-levodopa (SINEMET) 25-100 mg per tablet Take 0.5 tablets by mouth three times daily. Takethree times daily with meals. No current facility-administered medications for this visit. ALLERGIES: ALLERGIES No Known Allergies 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 10/02/2017 Dx 09/2017 and started on fosamax Prostate cancer (HCC) 2007 44 radiation treatments-moderately differentiated adenocarcinoma 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) 01/31/2015 Seizures (HCC) 2006 Tobacco abuse 09/30/2014 Vascular dementia (HCC) 09/30/2014 Vertebral compression fracture (HCC) 11/04/2017 Vitamin D deficiency 09/19/2017 PAST SURGICAL HISTORY Procedure Laterality Date APPENDECTOMY remote CATARACT SURGERY, COMPLEX 2011, 2012 IOLs CHOLECYSTECTOMY 2005 laparoscopic CYSTOSCOPY 2008 PAST SURGICAL HISTORY OF 2007 prostate cancer external radiation rx PAST SURGICAL HISTORY OF surgery for PUD complications Billroth II FAMILY HISTORY Problem Relation Age of Onset COPD Mother COPD Father Breast Cancer Sister Cancer Brother Social History Tobacco Use Smoking status: Former Packs/day: 1.00 Years: 30.00 Pack years: 30.00 Types: Cigarettes Smokeless tobacco: Never Substance Use Topics Alcohol use: No Drug use: No Reviewed current medications, allergies, past medical history, surgical history, family history andsocial history today. REVIEW OF SYSTEMS All other reviewed and negative other than HPI. HEALTH MAINTENANCE: Reviewed health maintenance issues today and recommended the following in detail. INFLUENZA-declines VITALS: BP 128/68 Pulse 76 Wt 87.5 kg (193 lb) BMI 24.78 kg/m Last 4 Encounter Wt Readings: Date: Wt: 08/09/2022 87.5 kg (193 lb) 08/09/2022 88 kg (194 lb) 05/17/2022 90.3 kg (199 lb) 04/26/2022 93.1 kg (205 lb 3.2 oz) PHYSICAL EXAMINATION: General appearance: Well appearing, alert, in no acute distress, well-hydrated, well nourished. Skin: Skin color, texture, turgor normal, no suspicious rashes or lesions Head: Normocephalic, no masses, lesions, tenderness or abnormalities Ears: Positive findings: cerumen bilaterally, amount Moderate Lungs: Lungs clear to auscultation. No wheezing, rhonchi, rales Heart: RRR without murmur, gallop, or rubs. No ectopy Abdomen: Normal abdominal exam, Abdomen soft, non-tender. Bowel sounds normal. No masses, organomegaly Extremities: No deformities, edema, skin discoloration, clubbing or cyanosis. Good capillary refill. ASSESSMENT/PLAN: 1. Hypothyroidism, acquired - ICD9: 244.9, ICD10: E03.9 (primary diagnosis) - check labs. - TSH BLD 2. Hypertension, essential - ICD9: 401.9, ICD10: I10 - good control - Continue current medication(s) - Goal of BP <130/80 3. Persistent atrial fibrillation (HCC) - ICD9: 427.31, ICD10: I48.19 4. History of duodenal ulcer - ICD9: V12.79, ICD10: Z87.19 - stable. 5. Vascular dementia without behavioral disturbance (HCC) - ICD9: 290.40, ICD10: F01.50 - stable. 6. Bilateral cerumen. Ears irrigated by nursing Tolerated well. Clear on recheck by myself. Vu Pulido MD documented in this encounter[facility]09-[facility] Instructions* Patient Instructions* Karmen James APRN.CNP - 08/09/2022 3:21 PM EDT Week one: Decrease Requip to 1/2 tablet three times daily. Week two: Decrease Requip to 1/2 tablet twice daily. Week three: Decrease Requip to 1/2 tablet daily. Week four: Stop medication. documented in this encounterZ[facility]09-22-2022 History of Present illness Narrative* Karmen James APRN.CNP - 08/09/2022 2:30 PM EDT Images from the original note were not included. [facility] [place] Follow-up Visit Follow-up note August 09, 2022 HPI: Mr. Gilliland presents today for a follow-up visit. Per his previous visit on 04/26/22: G20 Parkinson's disease (HCC) (primary encounter diagnosis) Comment: Patient with history of PD diagnosed in 10/2020 and started on Requip 0.5mg TID with improvement of related symptoms. Requip has since been titrated to 1mg TID again with minimal change in symptoms since each increase in dose. Exam remains essentially unchanged since time of previous appointment with shuffling, unstable gait, decreased arm swing (though note that patient has history of Rshoulder injury), and slow/uncoordinated movements. Again, discussed changing to alternative medication such as Sinemet as this may provide better improvement of symptoms, however, he declines at this time. Did discuss that we would not add medication but rather titrate off Requip and slowly initiate Sinemet (given additional concern for orthostatic hypotension). Of note, he was recently in the hospital for unintentional Synthroid OD and was discharged with prescription for physical therapy. Hereports that he will be setting up first visit after appointment today. After discussion, he is agreeable that if no improvement in symptoms after completion of physical therapy, will transition fromRequip to Sinemet. Note, pt will be going to [place] for month of May and encouraged him to begin PT prior to leaving for trip so that he may continue to work on safe HEP while out of town. 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 Last seizure was roughly four years ago after CVS. No reported seizure activity since time of previous appointment. Currently taking Keppra 750mg BID without SE or concerns. Will continue as previously prescribed. For stroke prevention goals remain BP <140/90 and BG <140. Of note, patient with hx of afib and following with cardiology. Recently stopped Eliquis as per most recent cardiology note pt is in SR (cardioversion in 12/2020). He remains on ASA 81mg. Continue to remain compliant with medications and follow with cardiology. Reviewed red flag symptoms and when to call 911 and present to ED. G31.84 Mild cognitive impairment Comment: Hx of vascular dementia diagnosed after CVA in 2013. MOCA repeated in office today with significant change; score of 15/29. Of note, pt is very MARSHALL and not currently using hearing aids whichcomplicates exam. Both the patient and his spouse report no significant concerns regarding worsening of memory. No report of dangerous behaviors or hallucinations. Discussed changes in exam today as well as possible initiation of medications that can be used to slow progression of decline of memory. He is agreeable to begin Namenda 5mg daily. Reviewed side effects. If no SE can increase to 5mg BID after two weeks. Recommend completing mentally stimulating activities for brain exercise (i.e. crossword puzzles, social interactions...) as well as regular physical exercise within patient limitations. Would also recommend regular use of hearing aids to improve memory/cognition as well. R21 Rash Comment: Red rash to medial aspect of R ankle. On exam skin is warm and edematous. Pt reports rash has been increasing in size. Has appointment with PCP on 05/17/22, however, recommend that patient isseen in for more urgent evaluation and he agrees to be seen after appointment today. Denies seizures since his previous appointment. Has not a seizure in two years. Still taking [id number] BID. Denies SE with medication. Still taking ASA everything. Denies speech or vision changes, loss of sensation, focal weakness. He did have a few falls when in . Got home in June. Went to physical therapy three times but then quit. States they told him that he doesn't have Parkinson's and his symptoms are related to old age and lack of exercise. When asked if legs, back, or joints were causing pain he states he is unsure what was painful. He states he went to therapy and the next day he just couldn't get out of bed. Had went to for his rash; was cellulitis. He states his memory has been good. Hasn't changed much since previous appointment. Will frequentlyask why he is somewhere or will forget things frequently. Not wandering in the middle of the night.Denies hallucinations. Still completes ADL's on his own. Still taking Requip. Taking 1mg TID. No difficulty buttoning buttons or zipping zippers. No freezing when walking. Shuffles when walking. Denies tremors. Denies soft speech. Never writes except for signing name. Denies bowel or bladder changes. Denies LOC or syncope. Does not have hearing aids. Modified MOCA 08/09/22 Visuospatial/exec (5-5) Incorrect cube/clock hands (2/4) Naming (0-3) Missed rhino (2/3) Memory Words, up to 2 trials: Face, Velvet, Anglican, Terese, Red (no points) 2/5 first try, 3/5 second try Attention forwards: 2 1 8 5 4 (0-1) (/) Attention backwards: 7 4 2 (0-1) (11/18) Tap for the A: F B A C M N A A J K L B A F A K D E A A A J A M O F A A B (1 point if 0 or 1 error) (Deferred) Serial subtraction by 7: [id number] (3 points for correct 4 or 5; 2 points for 2 or 3 correct; 1 point for 1 correct) 100-92-?- (0/3) Language: repeat: I only know that Riley is the one to help today (0-1) (11/18) Language: repeat: The cat always hid under the couch when dogs were in the room (0-1) (11/18) Fluency: max words beginning with the letter F (1 point if 11 or more words) lll (0/1) Abstraction: practice banana-orange=fruit. Then train-bicycle (1) AND watch- ruler (1) total: (2) (11/19) Delayed recall: recall words: face, velvet, druze, terese, red (0-5) (0/5) Orientation: date(1), month(1), year(1), day(1), place(1), city(1) max 6 points (3/6) Total Score max 28 (12) Hearing impaired (Y or N) Y Vision impaired (Y or N) N *Patient extremely hard of hearing which greatly complicates testing. 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 10/02/2017 Dx 09/2017 and started on fosamax Prostate cancer (HCC) 2007 45 radiation treatments-moderately differentiated adenocarcinoma 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) 01/31/2015 Seizures (HCC) 2007 Tobacco abuse 09/30/2014 Vascular dementia (HCC) 09/30/2014 Vertebral compression fracture (HCC) 11/04/2017 Vitamin D deficiency 09/19/2017 PAST SURGICAL HISTORY Procedure Laterality Date APPENDECTOMY remote CATARACT SURGERY, COMPLEX 2011, 2012 IOLs CHOLECYSTECTOMY 2005 laparoscopic CYSTOSCOPY 2008 PAST SURGICAL HISTORY OF 2007 prostate cancer external radiation rx PAST SURGICAL HISTORY OF surgery for PUD complications Billroth II Current Outpatient Medications on File Prior to Visit Medication Sig rOPINIRole (REQUIP) 1 mg tablet TAKE 1 TABLET BY MOUTH THREE TIMES A DAY levothyroxine (SYNTHROID) 25 mcg tablet Take 1 tablet by mouth once daily. Take on empty stomach. For thyroid. Cholecalciferol, Vitamin D3, (VITAMIN D-3) 50 mcg (2,000 unit) cap Take by mouth. Vitamin E, dl, acetate, 1,000 unit capsule Take 1,000 Units by mouth once daily. levETIRAcetam (KEPPRA) 750 mg tablet Take 1 tablet by mouth twice daily. amiodarone (PACERONE) 200 mg tablet 1 tablet once daily. metoprolol tartrate, short acting, (LOPRESSOR) 25 mg tablet Take 25 mg by mouth twice daily. multivit-min/FA/lycopen/lutein (CENTRUM SILVER MEN ORAL) Take by mouth once daily. No current facility-administered medications on file prior to visit. Social History Tobacco Use Smoking status: Former Packs/day: 1.00 Years: 30.00 Pack years: 30.00 Types: Cigarettes Smokeless tobacco: Never Substance Use Topics Alcohol use: No Drug use: No ALLERGIES No Known Allergies Review of Systems: Vision: denies blurring vison, double vision/diplopia Cardiopulmonary: denies chest pain, palpitations Respiratory: + shortness of breath GI: denies recent nausea, vomiting, diarrhea, constipation : denies incontinence Musculoskeletal: denies + weakness, joint ache/pain Back/spine: denies low back, mid back, or cervical pains Neuro: denies tremors, loss of feeling, dizziness, seizure, blackout, paresthesia, facial paresthesia, facial weakness, difficulty in speech, slurring of words, dysarthria, dysphagia, + memory loss, headache, + hard of hearing Physical Exam: 08/09/22 1412 BP: 128/68 Pulse: 76 Resp: 18 Temp: 36.6 C (97.8 F) SpO2: 98% Weight: 88 kg (194 lb) Patient is alert and in no distress. Dress is appropriate. Mood is appropriate Breathing appears regular and unstressed Neurologic examination: Modified MOCA above. CN: Pupils equal and reactive to light, extraocular movements intact with no nystagmus, face is symmetric with no facial droop, hearing intact bilaterally, tongue is midline with no deviation, shoulder shrug is symmetric. Motor exam shows 5/5 strength symmetric through the upper and lower extremities in all groups tested. Sensory intact to light touch in all extremities. Vibratory sensation is intact and symmetric all extremities. Deep tendon reflexes are symmetric at the biceps, brachioradialis, triceps, patella, and achilles bilaterally. Coordination: No dysmetria on finger to nose. No tremors noted. No drift seen. Toe tap slow on R. Hand/finger tap uncoordinated and slow bilaterally L>R. No rigidity. Shuffling gait. Stooped posture. Unable to rise from chair without using arms. Decreased arm swing on L. Slow five step turn. Retropulsion on pull test. Labs/studies: Component Latest Ref Rng & Units 05/17/2022 WBC 3.70 - 11.00 k/uL 5.47 RBC 4.20 - 6.00 m/uL 4.74 Hemoglobin 13.0 - 17.0 g/dL 14.5 Hematocrit 39.0 - 51.0 % 45.4 MCV 80.0 - 100.0 fL 95.8 MCH 26.0 - 34.0 pg 30.6 MCHC 30.5 - 36.0 g/dL 31.9 RDW-CV 11.5 - 15.0 % 13.3 Platelet Count 150 - 400 k/uL 265 MPV 9.0 - 12.7 fL 11.8 Neut% % 57.7 Abs Neut (ANC) 1.45 - 7.50 k/uL 3.15 Lymph% % 24.3 Abs Lymph 1.00 - 4.00 k/uL 1.33 Keith% % 15.0 Abs Keith <0.87 k/uL 0.82 Eosin% % 1.6 Abs Eosin <0.46 k/uL 0.09 Baso% % 0.7 Abs Baso <0.11 k/uL 0.04 Immature Gran % % 0.7 IMMATURE GRANS (ABS) <0.10 k/uL 0.04 NRBC /100 WBC 0.0 Absolute nRBC <0.01 k/uL <0.01 DTYPE Auto Protein, Total 6.3 - 8.0 g/dL 7.1 Albumin 3.9 - 4.9 g/dL 4.0 Calcium 8.5 - 10.2 mg/dL 9.4 Bilirubin, Total 0.2 - 1.3 mg/dL 0.2 Alkaline Phosphatase 38 - 113 U/L 94 AST 14 - 40 U/L 33 ALT 10 - 54 U/L 39 Glucose 74 - 99 mg/dL 86 BUN 9 - 24 mg/dL 13 Creatinine 0.73 - 1.22 mg/dL 0.92 Sodium 136 - 144 mmol/L 139 Potassium 3.7 - 5.1 mmol/L 4.3 Chloride 97 - 105 mmol/L 104 CO2 22 - 30 mmol/L 23 Anion Gap 9 - 18 mmol/L 12 eGFR >=60 mL/min/1.73m 84 Previously Reviewed: CT Brain 07/02/18: Chronic involutional changes of the brain. Old left basal ganglia lacunar infarct. Component Latest Ref Rng & Units 03/09/2021 Protein, Total 6.3 - 8.0 g/dL 7.0 Albumin 3.9 - 4.9 g/dL 4.2 Calcium 8.5 - 10.2 mg/dL 9.1 Bilirubin, Total 0.2 - 1.3 mg/dL 0.2 Alkaline Phosphatase 38 - 113 U/L 103 AST 14 - 40 U/L 34 Glucose 74 - 99 mg/dL 96 BUN 9 - 24 mg/dL 11 Creatinine 0.73 - 1.22 mg/dL 0.91 Sodium 136 - 144 mmol/L 140 Potassium 3.7 - 5.1 mmol/L 4.2 Chloride 97 - 105 mmol/L 101 CO2 22 - 30 mmol/L 28 Anion Gap 9 - 18 mmol/L 11 ALT 10 - 54 U/L 58 (H) eGFR- >60 eGFR-All Other Races . >60 WBC 3.70 - 11.00 k/uL 6.88 RBC 4.20 - 6.00 m/uL 4.94 Hemoglobin 13.0 - 17.0 g/dL 15.2 Hematocrit 39.0 - 51.0 % 47.6 MCV 80.0 - 100.0 fL 96.4 MCH 26.0 - 34.0 pG 30.8 MCHC 30.5 - 36.0 g/dL 31.9 RDW-CV 11.5 - 15.0 % 13.7 Platelet Count 150 - 400 k/uL 276 MPV 9.0 - 12.7 fL 11.8 Absolute nRBC <0.01 k/uL <0.01 Levetiracetam 12.0 - 46.0 ug/mL 19.4 Assessment/Plan: G20 Parkinson's disease (HCC) (primary encounter diagnosis) R26.89 Balance problem R29.898 Leg weakness, bilateral Comment: Patient with history of PD diagnosed in 10/2020 and started on Requip 0.5mg TID with improvement of related symptoms. However, Requip has since been titrated to 1mg TID without further improvement of symptoms. Since time of previous appointment he has attempted to complete PT but due to pain he stopped course of therapy. He does report multiple falls since previous appointment and is unstable with ambulation. He reports Exam remains unchanged with shuffling gait, retropulsion, and slow/uncoordinated movements. After discussion today, pt is agreeable to titrate down Requip and insteadtransition to Sinemet 1/2 tablet 25-100mg TID with meals. In addition, he reports generalized weakness to BLE with episodes of his legs giving out beneath him. Will order XR lumbar spine to evaluate for degenerative changes possible contributing to leg weakness. Discussed importance of physical therapy and would recommend returning and completing therapy as previously prescribed. Pt should continue to use assistive device at home for stability and attempt to participate in physical activities and HEP provided by PT within limitations. 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 He denies seizure activity since time ofprevious appointment and remains stable on Keppra 750mg BID. Lab work reviewed and will order Keppra level. Will continue as previously prescribed. Goals for stroke prevention remain BP <140/90 and BG <140. Remain compliant with ASA 81mg and continue follow up with PCP and cardiology for risk factor management. If new sx should occur pt to immediately call 911 and present to ED. F01.50 Vascular dementia without behavioral disturbance (HCC) Comment: Hx of vascular dementia diagnosed after CVA in 2013. MOCA repeated in office today with slight decrease in score; 11/14. However, as previously noted, pt is very MARSHALL which complicates and may impact exam. Declines significant change in memory or dangerous behavior/hallucinations. Previously prescribed Namenda, however, he did not start medication and will defer at time of appointment today given change in medications above. Recommend completing mentally stimulating activities for brainexercise (i.e. crossword puzzles, social interactions...) as well as regular physical exercise within patient limitations. Again, would also recommend regular use of hearing aids to improve memory/cognition as well. Office Visit on 08/09/22 XR LUMBAR GENERAL 3V AP/LAT/L5-S1 LEVETIRACETAM Karmen James APRN.JOSE ANGEL I spent a total of 45 minutes on the date of the service which included preparing to see the patient, [id number] patient care, completing clinical documentation, obtaining and/or reviewing separately obtained history, performing a medically appropriate examination, counseling and educating the pat ient/family/caregiver, and ordering medications, tests, or procedures. documented in this encounterZ[facility]ville [facility]09-09-2022 Miscellaneous Notes* Telephone Encounter - Montserrat Sorto MA - 07/27/2022 8:40 AM EDT Pharmacy escripts requesting the following refill: Requested Prescriptions Pending Prescriptions Disp Refills rOPINIRole (REQUIP) 1 mg tablet [Pharmacy Med Name: ROPINIROLE HCL 1 MG TABLET] 270 tablet Sig: TAKE 1 TABLET BY MOUTH THREE TIMES A DAY LEE: 04/26/2022 NOV: 08/09/2022 Please review. Montserrat Sorto CMA documented in this encounterZ[facility]ville [facility]07-11-2022 Miscellaneous Notes* Telephone Encounter - Lata Plaza Ma - 05/28/2022 10:39 AM EDT Tried to reach pt, line is not a working number. Lata Plaza Ma * Telephone Encounter - Emili Serna MA - 05/25/2022 10:51 AM EDT Attempted to contact patient. Phone rings busy with no option to leave a message. Please try again later. Emili Serna MA * Telephone Encounter - Matthew Chaparro LPN - 05/22/2022 1:38 PM EDT TC to pt, left message to return call to office. * Telephone Encounter - Vu Pulido MD - 05/22/2022 1:09 PM EDT Ok. Please recheck labs when back in town. * Telephone Encounter - Yanely Monteiro LPN - 05/22/2022 12:02 PM EDT notified of dr's message. reports pt will take synthroid. reports they are in [place] now and will be back 06/29 so asking for a refill on rx. Would like rx to go to local [facility] and rx will be filled by [facility]. Yanely Monteiro LPN * Telephone Encounter - Montserrat Connor Ma - 05/22/2022 11:07 AM EDT Left message for patient to return call. Montserrat Connor Ma * Telephone Encounter - Vu Pulido MD - 05/22/2022 11:04 AM EDT Did not see cmp. Let him know his thyroid is borderline. Are they willing to resume a small amount of synthroid? * Telephone Encounter - Matthew Chaparro LPN - 05/22/2022 10:57 AM EDT cmp and bmp were both ordered, but cmp was the test run. Do you still want a bmp? * Telephone Encounter - Vu Pulido MD - 05/22/2022 8:34 AM EDT For some reason lab, did not draw bmp with the remainder of the labs that were done. Can we see whyand see if it can be added. documented in this encounterZanesville City Hospital07-01-2022 Miscellaneous Notes* Telephone Encounter - Rasheeda Tanner Ma - 05/18/2022 8:58 AM EDT Left detailed message on confidential vm Rasheeda Tanner Ma * Telephone Encounter - Vu Pulido MD - 05/17/2022 5:50 PM EDT Xray shows no acute changes. Does show some scarring at the bases. If any shortness of breath or continued cough, let me know documented in this encounterZanesville City Hospital07-01-2022 Miscellaneous Notes* Telephone Encounter - Kiana Santana RN - 05/18/2022 8:25 AM EDT Sherrell from [facility] calling to request patient's recent OV note from 05/17/22 and chest xray result. Faxed as requested to [phone]. Kiana Santana RN documented in this encounterZanesville City Hospital06-30-2022 History of Present illness Narrative* Vu Pulido MD - 05/17/2022 1:05 PM EDT Patient presents with: Hospital Discharge: Was at [facility] 04/23-04/24 then [facility] 04/28-05/01 dx cellulitis finished doxy (10 days) HPI: Patient presents today for office visit for follow up. Was in the hospital on 04/23-04/24 overdosed accidentally with a large amount of synthroid. His thinks he took at least 20 pills. They held it and he was to follow up with us the week later. States he felt good. No chest pain or palpitations. Did an echo. And held synthroid. His troponin was up but felt to possibly be demand ischemia. Looking at old records he was to stop eliquis, lasix and amiodarone. They apparently are still taking the amiodarone. Will see if we can get them back into cardiology for follow up on his elevated troponin and verify what he is to be on. HTN: Patient is compliant with meds Yes Syncope: No. Headache: No. Dizziness: No. Parkison's/NEURO:sees neurology A fib:sees [facility]. See above. Still taking amiodarone. Notes say he was to stop it. Hadelevated troponins. HYPOTHYROID:no meds since off of synthroid. URO:no urinary issues. Was in [facility], 04/28-05/01/22. Seen at urgent care and put on Kelfex for cellulitis. Troponin was up there as well. Xray showed left lung atelectasis vs infiltrate. Was diagnosed with mild chf but not sent home lasix. No cough. Switched to IV doxycycline. Switched to oral doxycycline. No fever or chills. No nausea or vomiting. Rash is still persistent per . says it is better. No itching or redness or warmth. says she is going on vacation for a month starting tomorrow to [place]. Component Latest Ref Rng & Units 11/21/2021 11/30/2021 Cholesterol, Total <200 mg/dL 191 Triglyceride <150 mg/dL 279 (H) HDL Cholesterol >39 mg/dL 30 (L) LDL Cholesterol <100 mg/dL 105 (H) Non HDL Cholesterol <130 mg/dL 161 (H) Fasting Time hrs 3 VLDL Cholesterol <30 mg/dL 56 (H) TC:HDL Ratio <5.10 6.37 (H) LDL:HDL Ratio <2.54 3.50 (H) T4 5.5 - 10.2 ug/dL 6.9 T4 Uptake 0.91 - 1.19 1.03 FTI 5.3 - 10.8 ug/dL 6.7 PSA Screening <2.60 ng/mL 0.74 T3 79 - 165 ng/dL 67 (L) TSH 0.270 - 4.200 uU/mL 10.500 (H) MEDICATIONS: Current Outpatient Medications Medication Sig rOPINIRole (REQUIP) 1 mg tablet TAKE 1 TABLET BY MOUTH THREE TIMES A DAY memantine (NAMENDA) 5 mg tablet Take 1 tablet by mouth once daily. levothyroxine (SYNTHROID) 25 mcg tablet Take 1 tablet by mouth once daily. Take on empty stomach. For thyroid. (Patient not taking: Reported on 04/26/2022 ) Cholecalciferol, Vitamin D3, (VITAMIN D-3) 50 mcg (2,000 unit) cap Take by mouth. Vitamin E, dl, acetate, 1,000 unit capsule Take 1,000 Units by mouth once daily. levETIRAcetam (KEPPRA) 750 mg tablet Take 1 tablet by mouth twice daily. amiodarone (PACERONE) 200 mg tablet 1 tablet twice daily. apixaban (ELIQUIS) 5 mg tab(s) Take 1 tablet by mouth twice daily. (Patient not taking: Reported on04/26/2022 ) potassium chloride ER (K-DUR, KLOR-CON) 20 mEq tablet Take 1 tablet by mouth twice daily with meals. (Patient not taking: Reported on 04/26/2022 ) furosemide (LASIX) 40 mg tablet Take 1 tablet by mouth once daily. (Patient not taking: Reported on04/26/2022 ) metoprolol tartrate, short acting, (LOPRESSOR) 25 mg tablet Take 25 mg by mouth twice daily. multivit-min/FA/lycopen/lutein (CENTRUM SILVER MEN ORAL) Take by mouth once daily. No current facility-administered medications for this visit. ALLERGIES: ALLERGIES No Known Allergies 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 10/02/2017 Dx 09/2017 and started on fosamax Prostate cancer (HCC) 2007 45 radiation treatments-moderately differentiated adenocarcinoma 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) 01/31/2015 Seizures (HCC) 2007 Tobacco abuse 09/30/2014 Vascular dementia (HCC) 09/30/2014 Vertebral compression fracture ([facility]) 11/04/2017 Vitamin D deficiency 09/19/2017 PAST SURGICAL HISTORY Procedure Laterality Date APPENDECTOMY remote CATARACT SURGERY, COMPLEX 2011, 2012 IOLs CHOLECYSTECTOMY 2005 laparoscopic CYSTOSCOPY 2008 PAST SURGICAL HISTORY OF 2007 prostate cancer external radiation rx PAST SURGICAL HISTORY OF surgery for PUD complications Billroth II FAMILY HISTORY Problem Relation Age of Onset COPD Mother COPD Father Breast Cancer Sister Cancer Brother Social History Tobacco Use Smoking status: Former Smoker Packs/day: 1.00 Years: 30.00 Pack years: 30.00 Types: Cigarettes Smokeless tobacco: Never Used Substance Use Topics Alcohol use: No Drug use: No Reviewed current medications, allergies, past medical history, surgical history, family history andsocial history today. REVIEW OF SYSTEMS All other reviewed and negative other than HPI. VITALS: BP 110/62 Pulse (!) 56 Wt 90.3 kg (199 lb) BMI 25.55 kg/m Last 4 Encounter Wt Readings: Date: Wt: 04/26/2022 93.1 kg (205 lb 3.2 oz) 04/26/2022 0 kg () 01/25/2022 89.1 kg (196 lb 6.4 oz) 11/30/2021 88.9 kg (196 lb) PHYSICAL EXAMINATION: General appearance: Well appearing, alert, in no acute distress, well-hydrated, well nourished. Skin: Skin color, texture, turgor normal, no suspicious rashes or lesions Head: Normocephalic, no masses, lesions, tenderness or abnormalities Neck: Supple, no adenopathy; thyroid symmetric, normal size, no bruits Lungs: Lungs clear to auscultation. No wheezing, rhonchi, rales Heart: RRR without murmur, gallop, or rubs. No ectopy Abdomen: Normal abdominal exam, Abdomen soft, non-tender. Bowel sounds normal. No masses, organomegaly Extremities: No deformities, edema, skin discoloration, clubbing or cyanosis. Good capillary refill. , some peeling skin where the cellulitis was but is better. Musculoskeletal: No joint swelling, deformity, or tenderness Peripheral pulses: Normal Neuro: Negative. ASSESSMENT/PLAN: 1. Accidental drug overdose, subsequent encounter - ICD9: V58.89, 977.9, ICD10: T50.901D (primary diagnosis) - off of synthroid. Will recheck labs. Encouraged to be careful with med usage. 2. Vascular dementia without behavioral disturbance (HCC) - ICD9: 290.40, ICD10: F01.50 - stable. 3. 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 Parkinson's disease (HCC) - ICD9: 332.0, ICD10: G20 - per neuro. 5. Persistent atrial fibrillation (HCC) - ICD9: 427.31, ICD10: I48.19 - reviewing old records, the last note I had was he was to stop amiodarone but apparently is still using it. Appears to be stable. Recommended he follow with cardiology given the question of chf and elevated troponins during hospital stays. Red flags for re-assessment reviewed with patient in detail. - CBC + DIFF - BASIC METABOLIC PNL 6. Hypertension, essential - ICD9: 401.9, ICD10: I10 - good control - Continue current medication(s) - Goal of BP <130/80 - CBC + DIFF - COMP METABOLIC PANEL 7. Hypothyroidism, acquired - ICD9: 244.9, ICD10: E03.9 - check off labs. - TSH BLD - TSH BLD - T4/FTI/T4U 8. Compression fracture of lumbar vertebra with routine healing, unspecified lumbar vertebral level, subsequent encounter - ICD9: V54.17, ICD10: S32.000D 9. History of CVA (cerebrovascular accident) - ICD9: V12.54, ICD10: Z86.73 - stable. 10. Vitamin D deficiency - ICD9: 268.9, ICD10: E55.9 11. Elevated troponin - ICD9: 790.6, ICD10: R77.8 - as aboe. - CONSULT TO CARDIOLOGY - TSH BLD - T4/FTI/T4U 12. Abnormal x-ray - ICD9: 793.99, ICD10: R93.89 - recheck xray - XR CHEST 2V FRONTAL/LAT 13. Cellulitis of skin - ICD9: 682.9, ICD10: L03.90 - Appears return. Vu Pulido RTO in eight weeks [facility]. MICRO - Microbiology PROCEDURE: Blood Culture (bacterial) [*1] SOURCE: Blood BODY SITE: COLLECTED DATE/TIME: 04/28/2022 17:36 EDT RECEIVED DATE/TIME: 04/29/2022 22:18 EDT START DATE/TIME: 04/29/2022 22:19 EDT FREE TEXT SOURCE: FINAL REPORTS Final Report [] Verified Date/Time/Personnel: 05/04/2022 22:59 EDT Blood Culture: No Growth at 5 days. PRELIMINARY REPORTS Preliminary Report [] Verified Date/Time/Personnel: 04/29/2022 22:59 EDT Culture has been received in lab and is no growth to date. Routine cultures are held for 5 days. Performing Locations *1: This test was performed at: [address], [address] [place], [place] [address]05-05-2022 Note. MICRO - Microbiology PROCEDURE: Blood Culture (bacterial) [*1] SOURCE: Blood BODY SITE: COLLECTED DATE/TIME: 04/28/2022 17:36 EDT RECEIVED DATE/TIME: 04/29/2022 22:18 EDT START DATE/TIME: 04/29/2022 22:19 EDT FREE TEXT SOURCE: FINAL REPORTS Final Report [] Verified Date/Time/Personnel: 05/04/2022 22:59 EDT Blood Culture: No Growth at 5 days. PRELIMINARY REPORTS Preliminary Report [] Verified Date/Time/Personnel: 04/29/2022 22:59 EDT Culture has been received in lab and is no growth to date. Routine cultures are held for 5 days. Performing Locations *1: This test was performed at: [address], [address] [place], [place] [address]04-30-2022 Miscellaneous Notes* Telephone Encounter - Montserrat Sorto MA - 04/30/2022 8:35 AM EDT Pharmacy escripts requesting the following refill: Pending Prescriptions Disp Refills ROPINIROLE 1 MG TABLET 90 tablet 2 Sig: TAKE 1 TABLET BY MOUTH THREE TIMES A DAY [place]: Yes LEE: 04/26/2022 Please review. Montserrat Sorto CMA [facility] Note. MICRO - Microbiology PROCEDURE: Streptococcus Pneumoniae Urine Antig [^1 *1] SOURCE: Urine BODY SITE: COLLECTED DATE/TIME: 04/29/2022 09:55 EDT RECEIVED DATE/TIME: 04/29/2022 22:28 EDT START DATE/TIME: 04/29/2022 22:28 EDT FREE TEXT SOURCE: FINAL REPORTS Final Report [] Verified Date/Time/Personnel: 04/30/2022 00:04 EDT Presumptive negative for pneumococcal pneumonia, suggesting no current or recent pneumococcal infection. Infection due to Strep pneumoniae cannot be ruled out since the antigen present in the sample may be below the detection limit of the test. Interpretive Data ^1: Streptococcus Pneumoniae Urine Antig This test has not been evaluated on patients taking antibiotics for greater than 24 hours or on patients who have recently completed an antibiotic regimen. The accuracy of this test has not been proven in young children. Performing Locations *1: This test was performed at: [address], [facility] , [facility] ([place])04-30-2022 Note. MICRO - Microbiology PROCEDURE: Legionella Urine Ag [*1] SOURCE: Urine BODY SITE: COLLECTED DATE/TIME: 04/29/2022 09:55 EDT RECEIVED DATE/TIME: 04/29/2022 22:28 EDT START DATE/TIME: 04/29/2022 22:28 EDT FREE TEXT SOURCE: FINAL REPORTS Final Report [] Verified Date/Time/Personnel: 04/30/2022 00:04 EDT Presumptive negative for L. pneumophila serogroup 1 antigen in urine, suggesting no recent or current infection. Legionnaire's disease cannot be ruled out since other serogroups and species may also cause disease. Performing Locations *1: This test was performed at: [facility], [address] [place] [address], [id number] , [facility] ([place])04-26-2022 History of Present illness Narrative* Zhao Pandey MD - 04/26/2022 4:04 PM EDT Patient presents with: reddness on both ankles: x 4 days HPI: Rash: Location/Duration: Medial righ x 5 days, lateral left since last night Pruritis: Yes Pain: Yes Change: Getting bigger Bleeding/ulceration/blister/pustule: Red, swelling Change in medications: In the ER for accidental Synthroid over ingestion 3 days ago. Recent illness: No, denies fever/chills/body aches. Treatment: Healing ointment (aquaphor) Off eliquis, kdur, and lasix since March. 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) 01/31/2015 Seizures (HCC) 2007 Tobacco abuse 09/30/2014 Vascular dementia (HCC) 09/30/2014 Vertebral compression fracture (HCC) 11/04/2017 Vitamin D deficiency 09/19/2017 PAST SURGICAL HISTORY Procedure Laterality Date APPENDECTOMY remote CATARACT SURGERY, COMPLEX 2011, 2013 IOLs CHOLECYSTECTOMY 2005 laparoscopic CYSTOSCOPY 2009 PAST SURGICAL HISTORY OF 2007 prostate cancer external radiation rx PAST SURGICAL HISTORY OF surgery for PUD complications Billroth II MEDICATIONS: memantine (NAMENDA) 5 mg tablet Take 1 tablet by mouth once daily. rOPINIRole (REQUIP) 1 mg tablet Take 1 tablet by mouth three times daily. Cholecalciferol, Vitamin D3, (VITAMIN D-3) 50 mcg (2,000 unit) cap Take by mouth. Vitamin E, dl, acetate, 1,000 unit capsule Take 1,000 Units by mouth once daily. levETIRAcetam (KEPPRA) 750 mg tablet Take 1 tablet by mouth twice daily. amiodarone (PACERONE) 200 mg tablet 1 tablet twice daily. metoprolol tartrate, short acting, (LOPRESSOR) 25 mg tablet Take 25 mg by mouth twice daily. multivit-min/FA/lycopen/lutein (CENTRUM SILVER MEN ORAL) Take by mouth once daily. levothyroxine (SYNTHROID) 25 mcg tablet Take 1 tablet by mouth once daily. Take on empty stomach. For thyroid. apixaban (ELIQUIS) 5 mg tab(s) Take 1 tablet by mouth twice daily. potassium chloride ER (K-DUR, KLOR-CON) 20 mEq tablet Take 1 tablet by mouth twice daily with meals. furosemide (LASIX) 40 mg tablet Take 1 tablet by mouth once daily. ALLERGIES: ALLERGIES No Known Allergies VITALS: BP 112/78 Pulse 62 Temp 36.6 C (97.8 F) Resp 18 Wt 93.1 kg (205 lb 3.2 oz) SpO2 98% BMI26.35 kg/m Last 4 Encounter Wt Readings: Date: Wt: 04/26/2022 93.1 kg (205 lb 3.2 oz) 04/26/2022 0 kg () 01/25/2022 89.1 kg (196 lb 6.4 oz) 11/30/2021 88.9 kg (196 lb) PHYSICAL EXAM: GEN: pleasant, no acute distress, alert, sitting in a wheelchair. Accompanied by his . HEENT: PERRL, EOMI, MMM HEART: regular rate, regular rhythm, no murmurs LUNGS: clear to auscultation, no wheezes or crackles, no increased WOB ABD: soft, obese EXT: no clubbing, no cyanosis, 1-2+ pitting edema of both ankles and feet. SKIN: Medial right ankle: 15 erythematous non-blanching warm rash with bumpy skin in the central 1/2, possible evolving vesicles, no pustules of fluctuance. The lesion appears at least doubled in size compared to a photo 3 days ago. Lateral left ankle: erythema, ecchymosis, and swelling below the malleolus. Range of motion: inversion, eversion, anterior drawer- non-painful. Palpation: Medial malleolus, lateral malleolus, Dorsal proximal midfoot, proximal 5th metatarsal non-painful. Painful to bear weight. Component Latest Ref Rng & Units 11/21/2021 eGFR-All Other Races . >60 ASSESSMENT/PLAN: 1. Rash and other nonspecific skin eruption - ICD9: 782.1, ICD10: R21 (primary diagnosis) 2. Contusion of left ankle, initial encounter - ICD9: 924.21, ICD10: S90.02XA 3. Leg swelling - ICD9: 729.81, ICD10: M79.89 Pruritic and tender medial right ankle lesion may represent arthropod envenomation. Cover for cellulitis. Not typical presentation for vascular embolism. The lesion border was marked with a pen. - TRIAMCINOLONE ACETONIDE 0.1 % TOPICAL CREAM - CEPHALEXIN 500 MG CAPSULE The left lateral ankle changes appear typical of an inversion sprain. Follow up if the lesions continue to worsen. I suggested cardiology follow up for edema and weight gain which may be related to lasix cessation. Zhao Pandey MD * Isreal Villegas APRN.CH[employer]OLATE PRODUCTION MACHINE OPERATOR - 04/26/2022 4:01 PM EDT Subjective HPI .Patient presents with: reddness on both ankles: x 4 days 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) 01/31/2015 Seizures (HCC) 2006 Tobacco abuse 09/30/2014 Vascular dementia (HCC) 09/30/2014 Vertebral compression fracture (HCC) 11/04/2017 Vitamin D deficiency 09/19/2017 PAST SURGICAL HISTORY Procedure Laterality Date APPENDECTOMY remote CATARACT SURGERY, COMPLEX 2011, 2012 IOLs CHOLECYSTECTOMY 2005 laparoscopic CYSTOSCOPY 2008 PAST SURGICAL HISTORY OF 2007 prostate cancer external radiation rx PAST SURGICAL HISTORY OF 1980s surgery for PUD complications Billroth II ALLERGIES Patient has no known allergies. MEDICATIONS memantine (NAMENDA) 5 mg tablet Take 1 tablet by mouth once daily. rOPINIRole (REQUIP) 1 mg tablet Take 1 tablet by mouth three times daily. Cholecalciferol, Vitamin D3, (VITAMIN D-3) 50 mcg (2,000 unit) cap Take by mouth. Vitamin E, dl, acetate, 1,000 unit capsule Take 1,000 Units by mouth once daily. levETIRAcetam (KEPPRA) 750 mg tablet Take 1 tablet by mouth twice daily. amiodarone (PACERONE) 200 mg tablet 1 tablet twice daily. metoprolol tartrate, short acting, (LOPRESSOR) 25 mg tablet Take 25 mg by mouth twice daily. multivit-min/FA/lycopen/lutein (CENTRUM SILVER MEN ORAL) Take by mouth once daily. levothyroxine (SYNTHROID) 25 mcg tablet Take 1 tablet by mouth once daily. Take on empty stomach. For thyroid. apixaban (ELIQUIS) 5 mg tab(s) Take 1 tablet by mouth twice daily. potassium chloride ER (K-DUR, KLOR-CON) 20 mEq tablet Take 1 tablet by mouth twice daily with meals. furosemide (LASIX) 40 mg tablet Take 1 tablet by mouth once daily. FAMILY HISTORY Problem Relation Age of Onset COPD Mother COPD Father Breast Cancer Sister Cancer Brother Social History Tobacco Use Smoking status: Former Smoker Packs/day: 1.00 Years: 30.00 Pack years: 30.00 Types: Cigarettes Smokeless tobacco: Never Used Substance Use Topics Alcohol use: No Drug use: No BP 112/78 Pulse 62 Temp 36.6 C (97.8 F) Resp 18 Wt 93.1 kg (205 lb 3.2 oz) SpO2 98% BMI26.35 kg/m ROS Objective Physical Exam [facility] History of Present illness Narrative* Karmen James APRN.CNP - 04/26/2022 2:30 PM EDT Images from the original note were not included. [facility] [place] Follow-up Visit Follow-up note April 26, 2022 HPI: Mr. Gilliland presents today for a follow-up visit. Per his previous visit on 01/25/22: G20 Parkinson's disease (HCC) (primary encounter diagnosis) Comment: Patient with history of PD diagnosed in 10/2020 and started on Requip 0.5mg TID with improvement of related symptoms. At previous appointment Requip dose increased to 0.75 mg TID with evening dose moved to dinner time. Pt reports minimal change in sx since previous visit. On exam today patient still with mild shuffling gait, decreased arm swing on R (though note that patient has history of R shoulder injury), and slow/uncoordinated finger/hand tap bilaterally. As symptoms persist, discussed changing to alternative medication such as Sinemet. At this time he declines and would like tocontinue with Requip. Will increase dose to 1mg TID. Again discussed starting physical therapy for i mprovement of balance and stability, however, patient declines at this time. Recommend continuing to use walker with ambulation. 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 Per patient report, last seizure was roughly four years ago following CVA. No further seizure activity since previous visit. Remains on Keppra 750mg BID. Will continue as previously prescribed. For stroke prevention recommend goal BP <140/90 and BG <140. Of note, patient with hx of afib and currently on Eliquis. Continue to remain compliant with medications. G31.84 Mild cognitive impairment Comment: Pt with history of vascular dementia diagnosed after CVA in 2013. Modified MOCA repeated today in office with score of 23/27; slight improvement since previous visit. Pt and reporting no significant change in memory since previous visit. At this time will continue to monitor and assess for further changes at next visit. Presents today with rash to R medial ankle and L lateral ankle. Symptoms began on the . Rash is red and painful. Recently hospitalized for unintentional synthroid overdose. His typically puts his pills in anunmarked bottle for him to take. However, he accidentally took all of the pills out of the synthroid bottle instead. Rash started that evening. Left ankle started on 04/25/22. Denies seizure activity. Still taking Keppra 750mg BID. Denies loss of bowel or bladder, shaking, tremoring, biting cheek or tongue. No focal weakness, speech changes, loss of vision. Recently taken off Eliquis, Lasix, and Potassium. States peanut cleaner took him off these medications. Follows with Dr. Ferrer. His states that his peanut cleaner took him off Eliquis because of wheezing and the wheezing has since stopped. Most recent cardiology note obtained for review. Per Dr. Ferrer on 03/01/22: He appears doing fairly well though he complains of wheezing as well as dizziness when he gets up quickly. He is orthostatic and has had near falls. He remains on anticoagulation and aspirin as needed. He did develop thyroid abnormalities on the amiodarone. Paroxysmal atrial fibrillation: He did have an episode of atrial fibrillation and is currently in sinus rhythm. We will discontinuethe amiodarone and he will remain on the beta-loli. The Eliquis will also be discontinued. We will continue to monitor him and see how he does. Essential hypertension: His blood pressure is under good control and he is actually orthostatic. I would recommend that we discontinue the Lasix as well as the potassium supplementation. His lipid profile demonstrated totalcholesterol of 191, HDL of 30, and LDL of 105. No other changes will be made. Needs hearing aids but has not yet gotten them. His states that in March he was using the walker to start walking down the road. His states that he has been taking the Requip TID. Feels his legs have been weak. His notes that he has had a few falls. States he went to pick asparagus and fell in the grass. Denies tremors. No difficulty buttoning buttons or zipping. No signficant change since increasing Requip. States his memory hasn't been bad. His states he is doing ok. No difficulty remembering family or friends. Not getting lost in familiar place. Not wandering at night. Denies hallucinations. Nosx of RBD. Uses a walker when at home. Modified MOCA 04/26/22 Visuospatial/exec (5-5) Incorrect cube/clock hands (2/4) Naming (0-3) Missed rhino (2/3) Memory Words, up to 2 trials: Face, Velvet, Anglican, Terese, Red (no points) 2/5 first try, 2/5 second try Attention forwards: 2 1 8 5 4 (0-1) (11/18) Attention backwards: 7 4 2 (0-1) (11/18) Tap for the A: F B A C M N A A J K L B A F A K D E A A A J A M O F A A B (1 point if 0 or 1 error) (0/1) Serial subtraction by 7: [id number] (3 points for correct 4 or 5; 2 points for 2 or 3 correct; 1 point for 1 correct) 100-93-80- (1/) Language: repeat: I only know that Riley is the one to help today (0-1) (11/18) Language: repeat: The cat always hid under the couch when dogs were in the room (0-1) (11/18) Fluency: max words beginning with the letter F (1 point if 11 or more words) lll (0/1) Abstraction: practice banana-orange=fruit. Then train-bicycle (1) AND watch- ruler (1) total: (2) (2/2) Delayed recall: recall words: face, velvet, druze, terese, red (0-5) (0/5) Orientation: date(1), month(1), year(1), day(1), place(1), city(1) max 6 points (4/6) Total Score max 29 (15) Hearing impaired (Y or N) Y Vision impaired (Y or N) N *Patient extremely hard of hearing and difficulty assessing recall. 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 10/02/2017 Dx 09/2017 and started on fosamax Prostate cancer (HCC) 2007 45 radiation treatments-moderately differentiated adenocarcinoma 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) 01/31/2015 Seizures (HCC) 2006 Tobacco abuse 09/30/2014 Vascular dementia (HCC) 09/30/2014 Vertebral compression fracture (HCC) 11/04/2017 Vitamin D deficiency 09/19/2017 PAST SURGICAL HISTORY Procedure Laterality Date APPENDECTOMY remote CATARACT SURGERY, COMPLEX 2011, 2012 IOLs CHOLECYSTECTOMY 2005 laparoscopic CYSTOSCOPY 2009 PAST SURGICAL HISTORY OF 2008 prostate cancer external radiation rx PAST SURGICAL HISTORY OF 1980s surgery for PUD complications Billroth II Current Outpatient Medications on File Prior to Visit Medication Sig rOPINIRole (REQUIP) 1 mg tablet Take 1 tablet by mouth three times daily. levothyroxine (SYNTHROID) 25 mcg tablet Take 1 tablet by mouth once daily. Take on empty stomach. For thyroid. Cholecalciferol, Vitamin D3, (VITAMIN D-3) 50 mcg (2,000 unit) cap Take by mouth. Vitamin E, dl, acetate, 1,000 unit capsule Take 1,000 Units by mouth once daily. levETIRAcetam (KEPPRA) 750 mg tablet Take 1 tablet by mouth twice daily. amiodarone (PACERONE) 200 mg tablet 1 tablet twice daily. apixaban (ELIQUIS) 5 mg tab(s) Take 1 tablet by mouth twice daily. potassium chloride ER (K-DUR, KLOR-CON) 20 mEq tablet Take 1 tablet by mouth twice daily with meals. furosemide (LASIX) 40 mg tablet Take 1 tablet by mouth once daily. metoprolol tartrate, short acting, (LOPRESSOR) 25 mg tablet Take 25 mg by mouth twice daily. multivit-min/FA/lycopen/lutein (CENTRUM SILVER MEN ORAL) Take by mouth once daily. No current facility-administered medications on file prior to visit. Social History Tobacco Use Smoking status: Former Smoker Packs/day: 1.00 Years: 30.00 Pack years: 30.00 Types: Cigarettes Smokeless tobacco: Never Used Substance Use Topics Alcohol use: No Drug use: No ALLERGIES Not on File Review of Systems: Vision: denies blurring vison, double vision/diplopia Cardiopulmonary: denies chest pain, palpitations Respiratory: + shortness of breath GI: denies recent nausea, vomiting, diarrhea, constipation : denies incontinence Musculoskeletal: denies + weakness, joint ache/pain Back/spine: denies low back, mid back, or cervical pains Neuro: denies tremors, loss of feeling, dizziness, seizure, blackout, paresthesia, facial paresthesia, facial weakness, difficulty in speech, slurring of words, dysarthria, dysphagia, + memory loss, headache, + hard of hearing Physical Exam: 04/26/22 1432 BP: 102/70 Pulse: 62 Resp: 18 Temp: 36.4 C (97.5 F) SpO2: 95% Patient is alert and in no distress. Dress is appropriate. Mood is appropriate Breathing appears regular and unstressed Neurologic examination: Modified MOCA above. CN: Pupils equal and reactive to light, extraocular movements intact with no nystagmus, face is symmetric with no facial droop, hearing intact bilaterally, tongue is midline with no deviation, shoulder shrug is symmetric. Motor exam shows 5/5 strength symmetric through the upper and lower extremities in all groups tested. Sensory intact to light touch in all extremities. Vibratory sensation is intact and symmetric all extremities. Deep tendon reflexes are symmetric at the biceps, brachioradialis, triceps, patella, and achilles bilaterally. Coordination: No dysmetria on finger to nose. No tremors noted. No drift seen. Toe tap slow on R. Hand/finger tap uncoordinated and slow bilaterally L>R. No rigidity. Shuffling gait. Stooped posture. Unable to rise from chair without using arms. Decreased arm swing on L. Slow five step turn. Retropulsion on pull test. Labs/studies: Previously Reviewed: Component Latest Ref Rng & Units 11/21/2021 11/30/2021 WBC 3.70 - 11.00 k/uL 6.63 RBC 4.20 - 6.00 m/uL 4.77 Hemoglobin 13.0 - 17.0 g/dL 15.9 Hematocrit 39.0 - 51.0 % 48.0 MCV 80.0 - 100.0 fL 100.6 (H) MCH 26.0 - 34.0 pG 33.3 MCHC 30.5 - 36.0 g/dL 33.1 RDW-CV 11.5 - 15.0 % 12.5 Platelet Count 150 - 400 k/uL 219 MPV 9.0 - 12.7 fL 12.3 Neut% % 61.4 Abs Neut (ANC) 1.45 - 7.50 k/uL 4.08 Lymph% % 23.4 Abs Lymph 1.00 - 4.00 k/uL 1.55 Keith% % 11.8 Abs Keith <0.87 k/uL 0.78 Eosin% % 2.6 Abs Eosin <0.46 k/uL 0.17 Baso% % 0.8 Abs Baso <0.11 k/uL 0.05 Nucleated Reds 0 /100 WBC 0.0 Absolute nRBC <0.01 k/uL <0.01 Diff Type Auto Diff Protein, Total 6.3 - 8.0 g/dL 6.6 Albumin 3.9 - 4.9 g/dL 4.0 Calcium 8.5 - 10.2 mg/dL 9.3 Bilirubin, Total 0.2 - 1.3 mg/dL 0.3 Alkaline Phosphatase 38 - 113 U/L 91 AST 14 - 40 U/L 30 Glucose 74 - 99 mg/dL 110 (H) BUN 9 - 24 mg/dL 17 Creatinine 0.73 - 1.22 mg/dL 1.05 Sodium 136 - 144 mmol/L 139 Potassium 3.7 - 5.1 mmol/L 4.7 Chloride 97 - 105 mmol/L 101 CO2 22 - 30 mmol/L 28 Anion Gap 9 - 18 mmol/L 10 ALT 10 - 54 U/L 38 eGFR- >60 eGFR-All Other Races . >60 Cholesterol, Total <200 mg/dL 191 Triglyceride <150 mg/dL 279 (H) HDL Cholesterol >39 mg/dL 30 (L) LDL Cholesterol <100 mg/dL 105 (H) Non HDL Cholesterol <130 mg/dL 161 (H) Fasting Time hrs 3 VLDL Cholesterol <30 mg/dL 56 (H) TC:HDL Ratio <5.10 6.37 (H) LDL:HDL Ratio <2.54 3.50 (H) T4 5.5 - 10.2 ug/dL 6.9 T4 Uptake 0.91 - 1.19 1.03 FTI 5.3 - 10.8 ug/dL 6.7 Levetiracetam 12.0 - 46.0 ug/mL 22.2 TSH 0.270 - 4.200 uU/mL 9.310 (H) 10.500 (H) T3 79 - 165 ng/dL 67 (L) CT Brain 07/02/18: Chronic involutional changes of the brain. Old left basal ganglia lacunar infarct. Component Latest Ref Rng & Units 03/09/2021 Protein, Total 6.3 - 8.0 g/dL 7.0 Albumin 3.9 - 4.9 g/dL 4.2 Calcium 8.5 - 10.2 mg/dL 9.1 Bilirubin, Total 0.2 - 1.3 mg/dL 0.2 Alkaline Phosphatase 38 - 113 U/L 103 AST 14 - 40 U/L 34 Glucose 74 - 99 mg/dL 96 BUN 9 - 24 mg/dL 11 Creatinine 0.73 - 1.22 mg/dL 0.91 Sodium 136 - 144 mmol/L 140 Potassium 3.7 - 5.1 mmol/L 4.2 Chloride 97 - 105 mmol/L 101 CO2 22 - 30 mmol/L 28 Anion Gap 9 - 18 mmol/L 11 ALT 10 - 54 U/L 58 (H) eGFR- >60 eGFR-All Other Races . >60 WBC 3.70 - 11.00 k/uL 6.88 RBC 4.20 - 6.00 m/uL 4.94 Hemoglobin 13.0 - 17.0 g/dL 15.2 Hematocrit 39.0 - 51.0 % 47.6 MCV 80.0 - 100.0 fL 96.4 MCH 26.0 - 34.0 pG 30.8 MCHC 30.5 - 36.0 g/dL 31.9 RDW-CV 11.5 - 15.0 % 13.7 Platelet Count 150 - 400 k/uL 276 MPV 9.0 - 12.7 fL 11.8 Absolute nRBC <0.01 k/uL <0.01 Levetiracetam 12.0 - 46.0 ug/mL 19.4 Assessment/Plan: G20 Parkinson's disease (HCC) (primary encounter diagnosis) Comment: Patient with history of PD diagnosed in 10/2020 and started on Requip 0.5mg TID with improvement of related symptoms. Requip has since been titrated to 1mg TID again with minimal change in symptoms since each increase in dose. Exam remains essentially unchanged since time of previous appointment with shuffling, unstable gait, decreased arm swing (though note that patient has history of Rshoulder injury), and slow/uncoordinated movements. Again, discussed changing to alternative medication such as Sinemet as this may provide better improvement of symptoms, however, he declines at this time. Did discuss that we would not add medication but rather titrate off Requip and slowly initiate Sinemet (given additional concern for orthostatic hypotension). Of note, he was recently in the hospital for unintentional Synthroid OD and was discharged with prescription for physical therapy. Hereports that he will be setting up first visit after appointment today. After discussion, he is agreeable that if no improvement in symptoms after completion of physical therapy, will transition fromRequip to Sinemet. Note, pt will be going to [place] for month of May and encouraged him to begin PT prior to leaving for trip so that he may continue to work on safe HEP while out of town. 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 Last seizure was roughly four years ago after CVS. No reported seizure activity since time of previous appointment. Currently taking Keppra 750mg BID without SE or concerns. Will continue as previously prescribed. For stroke prevention goals remain BP <140/90 and BG <140. Of note, patient with hx of afib and following with cardiology. Recently stopped Eliquis as per most recent cardiology note pt is in SR (cardioversion in 12/2020). He remains on ASA 81mg. Continue to remain compliant with medications and follow with cardiology. Reviewed red flag symptoms and when to call 911 and present to ED. G31.84 Mild cognitive impairment Comment: Hx of vascular dementia diagnosed after CVA in 2013. MOCA repeated in office today with significant change; score of 15/29. Of note, pt is very MARSH[place] and not currently using hearing aids whichcomplicates exam. Both the patient and his spouse report no significant concerns regarding worsening of memory. No report of dangerous behaviors or hallucinations. Discussed changes in exam today as well as possible initiation of medications that can be used to slow progression of decline of memory. He is agreeable to begin Namenda 5mg daily. Reviewed side effects. If no SE can increase to 5mg BID after two weeks. Recommend completing mentally stimulating activities for brain exercise (i.e. crossword puzzles, social interactions...) as well as regular physical exercise within patient limitations. Would also recommend regular use of hearing aids to improve memory/cognition as well. R21 Rash Comment: Red rash to medial aspect of R ankle. On exam skin is warm and edematous. Pt reports rash has been increasing in size. Has appointment with PCP on 05/17/22, however, recommend that patient isseen in for more urgent evaluation and he agrees to be seen after appointment today. Karmen James, [employer] PRODUCTION MACHINE OPERATOR I spent a total of 50 minutes on the date of the service which included preparing to see the patient, [id number] patient care, completing clinical documentation, obtaining and/or reviewing separately obtained history, performing a medically appropriate examination, counseling and educating the pat ient/family/caregiver and ordering medications, tests, or procedures. [facility] Miscellaneous Notes* Telephone Encounter - Montserrat Sorto MA - 02/21/2022 9:14 AM EDT Pharmacy escripts requesting the following refill: Refused Prescriptions Disp Refills rOPINIRole (REQUIP) 1 mg tablet [Pharmacy Med Name: ROPINIROLE HCL 1 MG TABLET] 90 tablet 2 Sig: TAKE 1 TABLET BY MOUTH THREE TIMES A DAY [place]: No Refills available Montserrat Sorto CMA documented [facility] History of Past illness Narrative* Problem Noted Date Resolved Date Chronic anticoagulation 01/05/2021 02/07/20 23 Prostate cancer 09/30/2014 05/15/2022 Tobacco abuse 09/30/2014 09/18/2017 Memory loss 09/30/2014 05/17/2022 Diarrhea following gastrointestinal surgery 09/1811/04/2017 Rectal mass 02/04/2013 09/30/2014 documented as of this encounter (statuses as of 02/07/2023) [facility] of Past illness Narrative* Problem Noted Date Resolved Date Chronic anticoagulation 01/05/2021 02/07/20 23 Prostate cancer 09/30/2014 05/15/2022 Tobacco abuse 09/30/2014 09/18/2017 Memory loss 09/30/2014 05/17/2022 Diarrhea following gastrointestinal surgery 09/1811/04/2017 Rectal mass 02/04/2013 09/30/2014 documented as of this encounter (statuses as of 02/08/2023) [facility] of Past illness Narrative* Problem Noted Date Resolved Date Chronic anticoagulation 01/05/2021 02/07/20 23 Prostate cancer 09/30/2014 05/15/2022 Tobacco abuse 09/30/2014 09/18/2017 Memory loss 09/30/2014 05/17/2022 Diarrhea following gastrointestinal surgery 09/1811/04/2017 Rectal mass 02/04/2013 09/30/2014 documented as of this encounter (statuses as of 05/17/2023) [facility] of [facility] illness Narrative* Problem Noted Date Diagnosed Date Resolved Date Chronic anticoagulation 01/05/2021/12/2022 Prostate cancer 09/30/2014 05/15/2022 Tobacco abuse 09/30/2014 09/18/2017 Memory loss 09/30/2014 05/17/2022 Diarrhea following gastrointestinal surgery 09/30/2014 11/04/2017 Rectal mass 02/04/2013 09/30/2014 documented as of this encounter (statuses as of 07/16/2023) [facility] of [facility] illness Narrative* Problem Noted Date Resolved Date Tobacco abuse 09/30/2014 09/18/2017 Diarrhea following gastrointestinal surgery 09/1811/04/2017 Rectal mass 02/04/2013 09/30/2014 documented as of this encounter (statuses as of 02/21/2022) [facility] illness Narrative* Problem Noted Date Resolved Date Tobacco abuse 09/30/2014 09/18/2017 Diarrhea following gastrointestinal surgery 09/1811/04/2017 Rectal mass 02/04/2013 09/30/2014 documented as of this encounter (statuses as of 04/26/2022) [facility] illness Narrative* Problem Noted Date Resolved Date Tobacco abuse 09/30/2014 09/18/2017 Diarrhea following gastrointestinal surgery 09/1811/04/2017 Rectal mass 02/04/2013 09/30/2014 documented as of this encounter (statuses as of 04/30/2022) [facility] Narrative* Problem Noted Date Resolved Date Tobacco abuse 09/30/2014 09/18/2017 Diarrhea following gastrointestinal surgery 09/1811/04/2017 Rectal mass 02/04/2013 09/30/2014 documented as of this encounter (statuses as of 04/30/2022) [facility] Narrative* Problem Noted Date Resolved Date Prostate cancer 09/30/2014 05/15/2022 Tobacco abuse 09/30/2014 09/18/2017 Memory loss 09/30/2014 05/17/2022 Diarrhea following gastrointestinal surgery 09/1811/04/2017 Rectal mass 02/04/2013 09/30/2014 documented as of this encounter (statuses as of 05/17/2022) [facility] Narrative* Problem Noted Date Resolved Date Prostate cancer 09/30/2014 05/15/2022 Tobacco abuse 09/30/2014 09/18/2017 Memory loss 09/30/2014 05/17/2022 Diarrhea following gastrointestinal surgery 09/1811/04/2017 Rectal mass 02/04/2013 09/30/2014 documented as of this encounter (statuses as of 05/18/2022) [facility] Narrative* Problem Noted Date Resolved Date Prostate cancer 09/30/2014 05/15/2022 Tobacco abuse 09/30/2014 09/18/2017 Memory loss 09/30/2014 05/17/2022 Diarrhea following gastrointestinal surgery 09/1811/04/2017 Rectal mass 02/04/2013 09/30/2014 documented as of this encounter (statuses as of 05/28/2022) [facility] Narrative* Problem Noted Date Resolved Date Prostate cancer 09/30/2014 05/15/2022 Tobacco abuse 09/30/2014 09/18/2017 Memory loss 09/30/2014 05/17/2022 Diarrhea following gastrointestinal surgery 09/1811/04/2017 Rectal mass 02/04/2013 09/30/2014 documented as of this encounter (statuses as of 07/27/2022) [facility] Narrative* Problem Noted Date Resolved Date Prostate cancer 09/30/2014 05/15/2022 Tobacco abuse 09/30/2014 09/18/2017 Memory loss 09/30/2014 05/17/2022 Diarrhea following gastrointestinal surgery 09/1811/04/2017 Rectal mass 02/04/2013 09/30/2014 documented as of this encounter (statuses as of 08/09/2022) [facility] Narrative* Problem Noted Date Resolved Date Prostate cancer 09/30/2014 05/15/2022 Tobacco abuse 09/30/2014 09/18/2017 Memory loss 09/30/2014 05/17/2022 Diarrhea following gastrointestinal surgery 09/1811/04/2017 Rectal mass 02/04/2013 09/30/2014 documented as of this encounter (statuses as of 08/10/2022) [facility] Narrative* Problem Noted Date Resolved Date Prostate cancer 09/30/2014 05/15/2022 Tobacco abuse 09/30/2014 09/18/2017 Memory loss 09/30/2014 05/17/2022 Diarrhea following gastrointestinal surgery 09/1811/04/2017 Rectal mass 02/04/2013 09/30/2014 documented as of this encounter (statuses as of 08/13/2022) [facility] Narrative* Problem Noted Date Resolved Date Prostate cancer 09/30/2014 05/15/2022 Tobacco abuse 09/30/2014 09/18/2017 Memory loss 09/30/2014 05/17/2022 Diarrhea following gastrointestinal surgery 09/1811/04/2017 Rectal mass 02/04/2013 09/30/2014 documented as of this encounter (statuses as of 09/11/2022) [facility] Narrative* Problem Noted Date Resolved Date Prostate cancer 09/30/2014 05/15/2022 Tobacco abuse 09/30/2014 09/18/2017 Memory loss 09/30/2014 05/17/2022 Diarrhea following gastrointestinal surgery 09/1811/04/2017 Rectal mass 02/04/2013 09/30/2014 documented as of this encounter (statuses as of 10/05/2022) [facility] Narrative* Problem Noted Date Resolved Date Prostate cancer 09/30/2014 05/15/2022 Tobacco abuse 09/30/2014 09/18/2017 Memory loss 09/30/2014 05/17/2022 Diarrhea following gastrointestinal surgery 09/1811/04/2017 Rectal mass 02/04/2013 09/30/2014 documented as of this encounter (statuses as of 11/22/2022) [facility] Narrative* Problem Noted Date Resolved Date Prostate cancer 09/30/2014 05/15/2022 Tobacco abuse 09/30/2014 09/18/2017 Memory loss 09/30/2014 05/17/2022 Diarrhea following gastrointestinal surgery 09/1811/04/2017 Rectal mass 02/04/2013 09/30/2014 documented as of this encounter (statuses as of 11/22/2022) [facility] Narrative* Problem Noted Date Resolved Date Prostate cancer 09/30/2014 05/15/2022 Tobacco abuse 09/30/2014 09/18/2017 Memory loss 09/30/2014 05/17/2022 Diarrhea following gastrointestinal surgery 09/1811/04/2017 Rectal mass 02/04/2013 09/30/2014 documented as of this encounter (statuses as of 11/23/2022) [facility] Narrative* Problem Noted Date Resolved Date Prostate cancer 09/30/2014 05/15/2022 Tobacco abuse 09/30/2014 09/18/2017 Memory loss 09/30/2014 05/17/2022 Diarrhea following gastrointestinal surgery 09/1811/04/2017 Rectal mass 02/04/2013 09/30/2014 documented as of this encounter (statuses as of 11/27/2022) [facility] Diagnosis Onset Date Resolution Status Essential (primary) hypertension chronic Paroxysmal atrial fibrillation chronic Accidental overdose of levothyroxine acute Elevated troponin acute [facility] Work Phone: Evaluation note* Diagnosis Rash and other nonspecific skin eruption- Primary Contusion of left ankle, initial encounter Leg swelling Swelling of [facility] Parkinson's disease (HCC)- Primary Paralysis agitans 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) History of CVA (cerebrovascular accident) Transient ischemic attack (TIA), and cerebral infarction without residual deficits Mild cognitive impairment Mild cognitive impairment, so stated Rash Rash and other nonspecific skin eruption [facility] Accidental drug overdose, subsequent encounter- Primary Vascular dementia without behavioral disturbance (HCC) Vascular dementia, uncomplicated 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) Parkinson's disease (HCC) Paralysis agitans Persistent atrial fibrillation (HCC) Atrial fibrillation Hypertension, essential Unspecified essential hypertension Hypothyroidism, acquired Unspecified hypothyroidism Compression fracture of lumbar vertebra with routine healing, unspecified lumbar vertebral level, subsequent encounter History of CVA (cerebrovascular accident) Transient ischemic attack (TIA), and cerebral infarction without residual deficits Vitamin D deficiency Unspecified vitamin D deficiency Elevated troponin Other abnormal blood chemistry Abnormal x-ray Other nonspecific (abnormal) findings on radiological and other examinations of body structure Cellulitis of skin Cellulitis and abscess of unspecified site [facility] Diagnosis Hypothyroidism, acquired Unspecified hypothyroidism [facility] Diagnosis Parkinson's disease (HCC)- Primary Paralysis agitans [facility] Diagnosis Hypothyroidism, acquired- Primary Unspecified hypothyroidism Hypertension, essential Unspecified essential hypertension Persistent atrial fibrillation (HCC) Atrial fibrillation History of duodenal ulcer Personal history of other diseases of digestive system Vascular dementia without behavioral disturbance (HCC) Vascular dementia, uncomplicated Bilateral impacted cerumen Impacted cerumen [facility] Diagnosis Parkinson's disease (HCC)- Primary Paralysis agitans Balance problem Other symptoms involving nervous and musculoskeletal systems Leg weakness, bilateral Other musculoskeletal symptoms referable to limbs 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) History of CVA (cerebrovascular accident) Transient ischemic attack (TIA), and cerebral infarction without residual deficits Vascular dementia without behavioral disturbance (HCC) Vascular dementia, uncomplicated [facility] Diagnosis Onset Date Resolution Status Abnormality, skin acute Essential (primary) hypertension chronic Paroxysmal atrial fibrillation [facility] Work Phone: Evaluation note* Diagnosis SOB (shortness of breath)- Primary Shortness of breath Chronic obstructive pulmonary disease, unspecified COPD type ([facility]) [facility]* Diagnosis 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) [facility]* Diagnosis Hypothyroidism, acquired Unspecified hypothyroidism [facility] Diagnosis Parkinson's disease (HCC)- Primary Paralysis agitans Balance problem Other symptoms involving nervous and musculoskeletal systems Leg weakness, bilateral Other musculoskeletal symptoms referable to limbs Vascular dementia without behavioral disturbance, psychotic disturbance, mood disturbance, or anxiety, unspecified dementia severity (HCC) 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) [facility]* Diagnosis Elevated alkaline phosphatase level- Primary Other nonspecific abnormal serum enzyme levels [facility] Diagnosis Parkinson's disease (HCC)- Primary Paralysis agitans Balance problem Other symptoms involving nervous and musculoskeletal systems Leg weakness, bilateral Other musculoskeletal symptoms referable to limbs Vascular dementia without behavioral disturbance, psychotic disturbance, mood disturbance, or anxiety, unspecified dementia severity (HCC) 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) History of stroke Transient ischemic attack (TIA), and cerebral infarction without residual deficits [facility] Diagnosis Parkinson's disease (HCC)- Primary Paralysis agitans 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) History of stroke Transient ischemic attack (TIA), and cerebral infarction without residual deficits Cerebral infarction, unspecified mechanism (HCC) Vascular dementia without behavioral disturbance, psychotic disturbance, mood disturbance, or anxiety, unspecified dementia severity (HCC) [facility] Diagnosis Vascular dementia without behavioral disturbance, psychotic disturbance, mood disturbance, or anxiety, unspecified dementia severity (HCC)- Primary 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) Vitamin D deficiency Unspecified vitamin D deficiency Hypertension, essential Unspecified essential hypertension Persistent atrial fibrillation (HCC) Atrial fibrillation Hypothyroidism, acquired Unspecified hypothyroidism Chronic obstructive pulmonary disease, unspecified COPD type (HCC) Fatty liver Other chronic nonalcoholic liver disease [facility] Diagnosis Parkinson's disease (HCC) Paralysis agitans [facility] Diagnosis Onset Date Resolution Status Essential (primary) hypertension chronic Paroxysmal atrial fibrillation chronic Irregularly irregular heart rhythm acute Shortness of breath acute Elevated troponin I level ac [place] Paroxysmal atrial fibrillati on with rapid ventricular response acute Pleural effusion acute Shortness of breath acute [facility] Work Phone: Evaluation note* Diagnosis Parkinson's disease Paralysis agitans [facility] Diagnosis Congestive heart failure, unspecified HF chronicity, unspecified heart failure type (HCC)- Primary [facility] Diagnosis Congestive heart failure, unspecified HF chronicity, unspecified heart failure type (HCC)- Primary Pleural effusion Unspecified pleural effusion Hypertension, essential Unspecified essential hypertension Acute diastolic heart failure (HCC) Acute diastolic heart failure Hypothyroidism, acquired Unspecified hypothyroidism Vascular dementia without behavioral disturbance, psychotic disturbance, mood disturbance, or anxiety, unspecified dementia severity (HCC) [facility]* Diagnosis Congestive heart failure, unspecified HF chronicity, unspecified heart failure type (HCC) documented in this encounter [facility] note* Diagnosis Cerebral infarction, unspecified mechanism (HCC) documented in this encounter [facility] note* Diagnosis Parkinson's disease, unspecified whether dyskinesia present, unspecified whether manifestations fluctuate 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) History of stroke Transient ischemic attack (TIA), and cerebral infarction without residual deficits Cerebral infarction, unspecified mechanism (HCC) Vascular dementia without behavioral disturbance, psychotic disturbance, mood disturbance, or anxiety, unspecified dementia severity (HCC) 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) Mild cognitive impairment Mild cognitive impairment, so stated Vascular dementia without behavioral disturbance (HCC) Vascular dementia, uncomplicated Neuropathy Mononeuritis of unspecified site documented in this encounter [facility] note* Diagnosis Acute diastolic heart failure (HCC)- Primary Acute diastolic heart failure Parkinson's disease, unspecified whether dyskinesia present, unspecified whether manifestations fluctuate Congestive heart failure, unspecified HF chronicity, unspecified heart failure type (HCC) Hypertension, essential Unspecified essential hypertension Hypothyroidism, acquired Unspecified hypothyroidism Vascular dementia without behavioral disturbance, psychotic disturbance, mood disturbance, or anxiety, unspecified dementia severity (HCC) Persistent atrial fibrillation (HCC) Atrial fibrillation Folate deficiency Other B-complex deficiencies documented in this encounter [facility] note* Diagnosis Vascular dementia without behavioral disturbance, psychotic disturbance, mood disturbance, or anxiety, unspecified dementia severity (HCC)- Primary History of CVA (cerebrovascular accident) Transient ischemic attack (TIA), and cerebral infarction without residual deficits Parkinson's disease, unspecified whether dyskinesia present, unspecified whether manifestations fluctuate (HCC) 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) Hypotension, unspecified hypotension type documented in this encounter [facility] note* Diagnosis 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)- Primary Parkinson's disease, unspecified whether dyskinesia present, unspecified whether manifestations fluctuate (HCC) Persistent atrial fibrillation (HCC) Atrial fibrillation Hypertension, essential Unspecified essential hypertension Congestive heart failure, unspecified HF chronicity, unspecified heart failure type (HCC) Acute diastolic heart failure (HCC) Acute diastolic heart failure Hypothyroidism, acquired Unspecified hypothyroidism Vascular dementia without behavioral disturbance, psychotic disturbance, mood disturbance, or anxiety, unspecified dementia severity (HCC) Compression fracture of lumbar vertebra with routine healing, unspecified lumbar vertebral level, subsequent encounter Folate deficiency Other B-complex deficiencies [facility]* Diagnosis Hyperglycemia- Primary Other abnormal glucose [facility] Diagnosis URI, acute- Primary Acute upper respiratory infections of unspecified site Hypothyroidism, acquired Unspecified hypothyroidism Parkinson's disease, unspecified whether dyskinesia present, unspecified whether manifestations fluctuate (HCC) 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) Persistent atrial fibrillation (HCC) Atrial fibrillation Acute diastolic heart failure (HCC) Acute diastolic heart failure Congestive heart failure, unspecified HF chronicity, unspecified heart failure type (HCC) Hypertension, essential Unspecified essential hypertension Fatty liver Other chronic nonalcoholic liver disease Compression fracture of lumbar vertebra with routine healing, unspecified lumbar vertebral level, subsequent encounter Vascular dementia without behavioral disturbance, psychotic disturbance, mood disturbance, or anxiety, unspecified dementia severity (HCC) History of CVA (cerebrovascular accident) Transient ischemic attack (TIA), and cerebral infarction without residual deficits Vitamin D deficiency Unspecified vitamin D deficiency Weight loss Loss of weight [facility] Diagnosis Parkinson's disease, unspecified whether dyskinesia present, unspecified whether manifestations fluctuate (HCC)- Primary Vascular dementia without behavioral disturbance, psychotic disturbance, mood disturbance, or anxiety, unspecified dementia severity (HCC) History of CVA (cerebrovascular accident) Transient ischemic attack (TIA), and cerebral infarction without residual deficits 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 ([facility]) Hypotension, unspecified hypotension type Frequent falls Personal history of fall [facility] Diagnosis Leukocytosis, unspecified type- Primary [facility] Diagnosis Pleural effusion Unspecified pleural effusion Acute diastolic heart failure (HCC) Acute diastolic heart failure [facility] Diagnosis Abnormal x-ray Other nonspecific (abnormal) findings on radiological and other examinations of body structure [facility] Diagnosis Balance problem Other symptoms involving nervous and musculoskeletal systems Leg weakness, bilateral Other musculoskeletal symptoms referable to limbs [facility] Diagnosis Folate deficiency Other B-complex deficiencies [facility] Diagnosis 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)- Primary Hypothyroidism, acquired Unspecified hypothyroidism Folate deficiency Other B-complex deficiencies Encounter for immunization Need for other specified prophylactic vaccination against single bacterial disease Persistent atrial fibrillation (HCC) Atrial fibrillation Simple chronic bronchitis (HCC) Simple chronic bronchitis Acute diastolic heart failure (HCC) Acute diastolic heart failure Hypertension, essential Unspecified essential hypertension [facility] Diagnosis 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) [facility] Diagnosis Onset Date Resolution Status Admit Date Essential (primary) hypertension chr onic May 04, 2025 1:52pm Paroxysmal atrial fibrillation chron ic May 04, 2025 1:52pm [facility] Work Phone: Evaluation note* Diagnosis Congestive heart failure, unspecified HF chronicity, unspecified heart failure type (HCC)- Primary Folate deficiency Other B-complex deficiencies Parkinson's disease, unspecified whether dyskinesia present, unspecified whether manifestations fluctuate (HCC) 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) Persistent atrial fibrillation (HCC) Atrial fibrillation Hypertension, essential Unspecified essential hypertension Acute diastolic heart failure (HCC) Acute diastolic heart failure Chronic obstructive pulmonary disease, unspecified COPD type (HCC) Fatty liver Other chronic nonalcoholic liver disease Hypothyroidism, acquired Unspecified hypothyroidism Compression fracture of lumbar vertebra with routine healing, unspecified lumbar vertebral level, subsequent encounter History of CVA (cerebrovascular accident) Transient ischemic attack (TIA), and cerebral infarction without residual deficits Vitamin D deficiency Unspecified vitamin D deficiency Screening for prostate cancer Special screening for malignant neoplasm of prostate Vascular dementia without behavioral disturbance, psychotic disturbance, mood disturbance, or anxiety, unspecified dementia severity (HCC) Personal history of malignant neoplasm of prostate documented in this encounter [facility] Discharge instructions Additional Instructions Plenty of fluids and rest. Follow-up with your doctor. Return if worse.[facility] Work Phone: Reason for referral (narrative)* Diagnostic Procedure Only (Routine) - Closed Specialty Diagnoses / Procedures Referred By Contkaty t Referred To Contact XR IMAGING Diagnoses Balance problem Leg weakness, bilateral Procedures XR LUMBAR GENERAL 3V AP/LAT/L5-S1 RADEX SPINE LUMBOSACRAL 2/3 VIEWS Karmen James APRN.[employer] MACHINE OPERATOR [address] [place] [id number] Xr Imaging Referral ID Status Reason Start Date Expiration Date V isits Requested Visits Authorized [id number] Closed Auto-Generate d Referral 08/09/2022 09/08/2023 1 1 [place] for referral (narrative)* Diagnostic Procedure Only (Routine) - Closed Specialty Diagnoses / Procedures Referred By Contac t Referred To Contact XR IMAGING Diagnoses Balance problem Leg weakness, bilateral Procedures XR LUMBAR GENERAL 3V AP/LAT/L5-S1 RADEX SPINE LUMBOSACRAL 2/3 VIEWS Karmen James APRN.[employer] PRODUCTION MACHINE OPERATOR [address] [place] [id number] [place] [address] Referral ID Status Reason Start Date Expiration Date V isits Requested Visits Authorized [id number] Closed Auto-Generate d Referral 08/09/2022 09/08/2023 1 1 [place] for referral (narrative)No reason for [facility] Reason for visit Narrative* Diagnostic Procedure Only (Routine) - Closed Specialty Diagnoses / Procedures Referred By Contac t Referred To Contact XR IMAGING Diagnoses Balance problem Leg weakness, bilateral Procedures XR LUMBAR GENERAL 3V AP/LAT/L5-S1 RADEX SPINE LUMBOSACRAL 2/3 VIEWS Karmen James APRN.CH[employer]OL[employer] PRODUCTION MACHINE OPERATOR [address] [place] [id number] [place] [address] Referral ID Status Reason Start Date Expiration Date V isits Requested Visits Authorized [id number] Closed Auto-Generate d Referral 08/09/2022 09/08/2023 1 1 [facility] Chief Complaint and Reason for Visit Chief Complaint 6-9 M FU(RS FROM 02/17 8) LEVOTHYROXINE OD, ELEVATED TROP Reason for Visit Essential (primary) hypertension Paroxysmal atrial fibrillation Accidental overdose of levothyroxine Elevated troponin Chief Complaint PARKINSONS DISEASE. RX HERE 4 M FU WEAKNESS Reason for Visit Abnormality, skin Essential (primary) hypertension Paroxysmal atrial fibrillation Chief Complaint COLD SYMPTOMS/COUGH 1 Y FU CONGESTION,COUGH cough CHF Congestive heart failure Congestive heart failure Congestive heart failure Reason for Visit Essential (primary) hypertension Paroxysmal atrial fibrillation Irregularly irregular heart rhythm Shortness of breath Elevated troponin I level Paroxysmal atrial fibrillation with rapid ventricular response Pleural effusion Shortness of breath Chief Complaint Admit Date 1 Y FU/MOVED FROM [facility] May 04, 2025 1: 52pm Reason for Visit Admit Date Essential (primary) hypertension May 042024 1:52pm Paroxysmal atrial fibrillation April 1:52pm Family History No Family History Records Found Relationship Condition Age at Onset Recorded Date/T eladia father Hypertension Unknown mother Parkinson's disease Unknown Advance Directives No Advanced Directives Records Found Advance Directive Response Recorded Date/ Time Advance Directives No December 11:59am Living Will Yes April 22, 2022 1 1:57pm Power of Ambulatory Care Yes April 22, 2022 11:57pm Advance Directive Response Recorded Date/ Time Name of Medical Power of Ambulatory Care doris mace September 23, 2022 5:00pm Advance Directives No December 10:59am Living Will Yes September 23 5:00pm Power of Ambulatory Care Yes September 23, 2022 5:00pm Advance Directive Response Recorded Date/ Time Name of Medical Power of Ambulatory Care August 24, 2023 4:16pm Name of Medical Power of Ambulatory Care Doris Mace August 30, 2023 2:20pm Advance Directives No August 24, 2023 1:06pm Living Will Yes August 30 2:20pm Power of Ambulatory Care Yes August 30, 2023 2:20pm Advance Directive Response Recorded Date/ Time Living Will Yes August 30 2:20pm Do you have a Healthcare Power of Ambulatory Care? Yes August 30, 2023 2:20pm Advance Directives No August 24, 2023 1:06pm Reason for Referral Specialty Diagnoses / Procedures Referred By Contac t Referred To Contact Cardiology Diagnoses Elevated troponin Accidental drug overdose, subsequent encounter Procedures CONSULT TO CARDIOLOGY OFFICE/OUTPATIENT [facility] 60-74 MINUTES Vu Pulido MD [address] [place] [address] Referral ID Status Reason Start Date Expiration Date Visits Requested Visits Authorized [id number] Pending Review PCP Requested Referral 05/17/2022 05/17/2023 1 1 Specialty Diagnoses / Procedures Referred By Contac t Referred To Contact Neurology Diagnoses Parkinson's disease (HCC) Procedures CONSULT TO NEUROLOGY OFFICE/OUTPATIENT [facility] 60-74 MINUTES Michael Mera MD [address] [place] [address] Referral ID Status Reason Start Date Expiration Date Visits Requested Visits Authorized [id number] Pending Review PCP Requested Referral 05/16/2023 05/15/2024 1 1 Specialty Diagnoses / Procedures Referred By Contac t Referred To Contact MR IMAGING Diagnoses Cerebral infarction, unspecified mechanism (HCC) Procedures MRI BRAIN WO IVCON MRI BRAIN BRAIN STEM W/O CONTRAST MATERIAL Vu Garcia Jr., MD [address] [facility] [address] [place] [address] [place] [address] Referral ID Status Reason Start Date Expiration Date Visits Requested Visits Authorized [id number] Authorized Auto-Generat ed Referral 07/15/2023 08/13/2024 1 1 Referral ID Status Reason Start Date Expiration Date V isits Requested Visits Authorized [id number] Closed Auto-Generate d Referral 07/15/2023 08/13/2024 1 1 Summary Purpose Additional Source Comments Source Comments (unrecognize d section and content) In the event this informatio n is protected by the Federal Confidentiality of Alcohol and Drug Abuse Patient Records regulations: The Federal rules restrict any use of the information to criminally investigate or prosecute any alcohol or drug abuse patient.[facility] the event this information is protected by the Federal Confidentiality of Alcohol and Drug Abuse Patient Records regulations: The Federal rules restrict any use of the information to criminally investigate or prosecute any alcohol or drug abuse patient.[facility] the event this information is protected by the Federal Confidentiality of Alcohol and Drug Abuse Patient Records regulations: The Federal rules restrict any use of the information to criminally investigate or prosecute any alcohol or drug abuse patient.[facility] the event this information is protected by the Federal Confidentiality of Alcohol and Drug Abuse Patient Records regulations: The Federal rules restrict any use of the information to criminally investigate or prosecute any alcohol or drug abuse patient.[facility] the event this information is protected by the Federal Confidentiality of Alcohol and Drug Abuse Patient Records regulations: The Federal rules restrict any use of the information to criminally investigate or prosecute any alcohol or drug abuse patient.[facility] the event this information is protected by the Federal Confidentiality of Alcohol and Drug Abuse Patient Records regulations: The Federal rules restrict any use of the information to criminally investigate or prosecute any alcohol or drug abuse patient.[facility] the event this information is protected by the Federal Confidentiality of Alcohol and Drug Abuse Patient Records regulations: The Federal rules restrict any use of the information to criminally investigate or prosecute any alcohol or drug abuse patient.[facility] the event this information is protected by the Federal Confidentiality of Alcohol and Drug Abuse Patient Records regulations: The Federal rules restrict any use of the information to criminally investigate or prosecute any alcohol or drug abuse patient.[facility] the event this information is protected by the Federal Confidentiality of Alcohol and Drug Abuse Patient Records regulations: The Federal rules restrict any use of the information to criminally investigate or prosecute any alcohol or drug abuse patient.[facility] the event this information is protected by the Federal Confidentiality of Alcohol and Drug Abuse Patient Records regulations: The Federal rules restrict any use of the information to criminally investigate or prosecute any alcohol or drug abuse patient.[facility] the event this information is protected by the Federal Confidentiality of Alcohol and Drug Abuse Patient Records regulations: The Federal rules restrict any use of the information to criminally investigate or prosecute any alcohol or drug abuse patient.[facility] the event this information is protected by the Federal Confidentiality of Alcohol and Drug Abuse Patient Records regulations: The Federal rules restrict any use of the information to criminally investigate or prosecute any alcohol or drug abuse patient.[facility] the event this information is protected by the Federal Confidentiality of Alcohol and Drug Abuse Patient Records regulations: The Federal rules restrict any use of the information to criminally investigate or prosecute any alcohol or drug abuse patient.[facility] the event this information is protected by the Federal Confidentiality of Alcohol and Drug Abuse Patient Records regulations: The Federal rules restrict any use of the information to criminally investigate or prosecute any alcohol or drug abuse patient.[facility] the event this information is protected by the Federal Confidentiality of Alcohol and Drug Abuse Patient Records regulations: The Federal rules restrict any use of the information to criminally investigate or prosecute any alcohol or drug abuse patient.[facility] the event this information is protected by the Federal Confidentiality of Alcohol and Drug Abuse Patient Records regulations: The Federal rules restrict any use of the information to criminally investigate or prosecute any alcohol or drug abuse patient.[facility] the event this information is protected by the Federal Confidentiality of Alcohol and Drug Abuse Patient Records regulations: The Federal rules restrict any use of the information to criminally investigate or prosecute any alcohol or drug abuse patient.[facility] the event this information is protected by the Federal Confidentiality of Alcohol and Drug Abuse Patient Records regulations: The Federal rules restrict any use of the information to criminally investigate or prosecute any alcohol or drug abuse patient.[facility] the event this information is protected by the Federal Confidentiality of Alcohol and Drug Abuse Patient Records regulations: The Federal rules restrict any use of the information to criminally investigate or prosecute any alcohol or drug abuse patient.[facility] the event this information is protected by the Federal Confidentiality of Alcohol and Drug Abuse Patient Records regulations: The Federal rules restrict any use of the information to criminally investigate or prosecute any alcohol or drug abuse patient.[facility] the event this information is protected by the Federal Confidentiality of Alcohol and Drug Abuse Patient Records regulations: The Federal rules restrict any use of the information to criminally investigate or prosecute any alcohol or drug abuse patient.[facility] the event this information is protected by the Federal Confidentiality of Alcohol and Drug Abuse Patient Records regulations: The Federal rules restrict any use of the information to criminally investigate or prosecute any alcohol or drug abuse patient.[facility] the event this information is protected by the Federal Confidentiality of Alcohol and Drug Abuse Patient Records regulations: The Federal rules restrict any use of the information to criminally investigate or prosecute any alcohol or drug abuse patient.[facility] the event this information is protected by the Federal Confidentiality of Alcohol and Drug Abuse Patient Records regulations: The Federal rules restrict any use of the information to criminally investigate or prosecute any alcohol or drug abuse patient.[facility] the event this information is protected by the Federal Confidentiality of Alcohol and Drug Abuse Patient Records regulations: The Federal rules restrict any use of the information to criminally investigate or prosecute any alcohol or drug abuse patient.[facility] the event this information is protected by the Federal Confidentiality of Alcohol and Drug Abuse Patient Records regulations: The Federal rules restrict any use of the information to criminally investigate or prosecute any alcohol or drug abuse patient.[facility] the event this information is protected by the Federal Confidentiality of Alcohol and Drug Abuse Patient Records regulations: The Federal rules restrict any use of the information to criminally investigate or prosecute any alcohol or drug abuse patient.[facility] the event this information is protected by the Federal Confidentiality of Alcohol and Drug Abuse Patient Records regulations: The Federal rules restrict any use of the information to criminally investigate or prosecute any alcohol or drug abuse patient.[facility] the event this information is protected by the Federal Confidentiality of Alcohol and Drug Abuse Patient Records regulations: The Federal rules restrict any use of the information to criminally investigate or prosecute any alcohol or drug abuse patient.[facility] the event this information is protected by the Federal Confidentiality of Alcohol and Drug Abuse Patient Records regulations: The Federal rules restrict any use of the information to criminally investigate or prosecute any alcohol or drug abuse patient.[facility] the event this information is protected by the Federal Confidentiality of Alcohol and Drug Abuse Patient Records regulations: The Federal rules restrict any use of the information to criminally investigate or prosecute any alcohol or drug abuse patient.[facility] the event this information is protected by the Federal Confidentiality of Alcohol and Drug Abuse Patient Records regulations: The Federal rules restrict any use of the information to criminally investigate or prosecute any alcohol or drug abuse patient.[facility] the event this information is protected by the Federal Confidentiality of Alcohol and Drug Abuse Patient Records regulations: The Federal rules restrict any use of the information to criminally investigate or prosecute any alcohol or drug abuse patient.[facility] the event this information is protected by the Federal Confidentiality of Alcohol and Drug Abuse Patient Records regulations: The Federal rules restrict any use of the information to criminally investigate or prosecute any alcohol or drug abuse patient.[facility] the event this information is protected by the Federal Confidentiality of Alcohol and Drug Abuse Patient Records regulations: The Federal rules restrict any use of the information to criminally investigate or prosecute any alcohol or drug abuse patient.[facility]In the event this information is protected by the Federal Confidentiality of Alcohol and Drug Abuse Patient Records regulations: The Federal rules restrict any use of the information to criminally investigate or prosecute any alcohol or drug abuse patient.[facility] HospitalIn the event this information is protected by the Federal Confidentiality of Alcohol and Drug Abuse Patient Records regulations: The Federal rules restrict any use of the information to criminally investigate or prosecute any alcohol or drug abuse patient.[facility]In the event this information is protected by the Federal Confidentiality of Alcohol and Drug Abuse Patient Records regulations: The Federal rules restrict any use of the information to criminally investigate or prosecute any alcohol or drug abuse patient.[facility] HospitalIn the event this information is protected by the Federal Confidentiality of Alcohol and Drug Abuse Patient Records regulations: The Federal rules restrict any use of the information to criminally investigate or prosecute any alcohol or drug abuse patient.[facility] HospitalIn the event this information is protected by the Federal Confidentiality of Alcohol and Drug Abuse Patient Records regulations: The Federal rules restrict any use of the information to criminally investigate or prosecute any alcohol or drug abuse patient.[facility] the event this information is protected by the Federal Confidentiality of Alcohol and Drug Abuse Patient Records regulations: The Federal rules restrict any use of the information to criminally investigate or prosecute any alcohol or drug abuse patient.[facility] HospitalIn the event this information is protected by the Federal Confidentiality of Alcohol and Drug Abuse Patient Records regulations: The Federal rules restrict any use of the information to criminally investigate or prosecute any alcohol or drug abuse patient.[facility] HospitalIn the event this information is protected by the Federal Confidentiality of Alcohol and Drug Abuse Patient Records regulations: The Federal rules restrict any use of the information to criminally investigate or prosecute any alcohol or drug abuse patient.[facility]In the event this information is protected by the Federal Confidentiality of Alcohol and Drug Abuse Patient Records regulations: The Federal rules restrict any use of the information to criminally investigate or prosecute any alcohol or drug abuse patient.[facility] HospitalIn the event this information is protected by the Federal Confidentiality of Alcohol and Drug Abuse Patient Records regulations: The Federal rules restrict any use of the information to criminally investigate or prosecute any alcohol or drug abuse patient.[facility] HospitalIn the event this information is protected by the Federal Confidentiality of Alcohol and Drug Abuse Patient Records regulations: The Federal rules restrict any use of the information to criminally investigate or prosecute any alcohol or drug abuse patient.[facility]In the event this information is protected by the Federal Confidentiality of Alcohol and Drug Abuse Patient Records regulations: The Federal rules restrict any use of the information to criminally investigate or prosecute any alcohol or drug abuse patient.[facility] HospitalIn the event this information is protected by the Federal Confidentiality of Alcohol and Drug Abuse Patient Records regulations: The Federal rules restrict any use of the information to criminally investigate or prosecute any alcohol or drug abuse patient.[facility] HospitalIn the event this information is protected by the Federal Confidentiality of Alcohol and Drug Abuse Patient Records regulations: The Federal rules restrict any use of the information to criminally investigate or prosecute any alcohol or drug abuse patient.[facility] HospitalIn the event this information is protected by the Federal Confidentiality of Alcohol and Drug Abuse Patient Records regulations: The Federal rules restrict any use of the information to criminally investigate or prosecute any alcohol or drug abuse patient.[facility] HospitalIn the event this information is protected by the Federal Confidentiality of Alcohol and Drug Abuse Patient Records regulations: The Federal rules restrict any use of the information to criminally investigate or prosecute any alcohol or drug abuse patient.[facility] HospitalIn the event this information is protected by the Federal Confidentiality of Alcohol and Drug Abuse Patient Records regulations: The Federal rules restrict any use of the information to criminally investigate or prosecute any alcohol or drug abuse patient.[facility] HospitalIn the event this information is protected by the Federal Confidentiality of Alcohol and Drug Abuse Patient Records regulations: The Federal rules restrict any use of the information to criminally investigate or prosecute any alcohol or drug abuse patient.[facility] HospitalIn the event this information is protected by the Federal Confidentiality of Alcohol and Drug Abuse Patient Records regulations: The Federal rules restrict any use of the information to criminally investigate or prosecute any alcohol or drug abuse patient.[facility] Reason for Visit (unrecogniz ed section and content) Reason Comments Refill Request Reason Comments reddness on both ankles x 4 days Reason Comments Follow Up 3 months Reason Comments Hospital Discharge Was at [facility] 04/23-04/24 t denis Popman 04/28-05/01 dx cellulitis finished doxy (10 days) Reason Comments Fax Request Reason Comments Results Reason Comments Follow Up Neuro is stopping re quip and starting carbidopa-levodopa Reason Comments Established Patient Three month follow u p Parkinson's disease, seizures and mild cognitive impairment Reason Comments Hospital F/U Reason Onset Date Comments Refill Request 11/20/2022 Reason Comments Handicap Placard Reason Comments Follow Up Reason Comments F/U 3 Month Reason Comments New Patient Pt reported bilatera l knee weakness, reported new fall x1 wk. Specialty Diagnoses / Procedures Referred By Contac t Referred To Contact Neurology Diagnoses Parkinson's disease (HCC) Procedures CONSULT TO NEUROLOGY OFFICE/OUTPATIENT NEW HIGH MDM 60-74 MINUTES Michael Mera MD [address] [place] [address] Referral ID Status Reason Start Date Expiration Date Visits Requested Visits Authorized [id number] Pending Review PCP Requested Referral 05/16/2023 05/15/2024 1 1 Reason Comments 6 Month Exam Reason Comments Med Change Request Reason Onset Date Comments Refill Request 09/13/2023 Specialty Diagnoses / Procedures Referred By Contac t Referred To Contact MR IMAGING Diagnoses Cerebral infarction, unspecified mechanism ([facility]) Procedures MRI BRAIN WO IVCON MRI BRAIN BRAIN STEM W/O CONTRAST MATERIAL Vu Garcia Jr., MD [address] [facility] [address] [place] [address] [place] [address] Referral ID Status Reason Start Date Expiration Date V isits Requested Visits Authorized [id number] Closed Auto-Generate d Referral 07/15/2023 08/13/2024 1 1 Reason Comments New Patient Reason Comments Follow Up Pt reported memory i ssues remained unchanged, ran out Sinemet x1.5 wks. Reason Comments Results Cbc Reason Onset Date Comments Refill Request 09/23/2024 Reason Comments Follow Up 5 month exam Reason Onset Date Comments Refill Request 04/26/2025 Reason Onset Date Comments Erroneous encounter-disregard 05/12/2025 Reason Onset Date Comments Population Health Navigation Outreach 07/15/2025 [employer] [facility] sprint list Care Teams (unrecognized sec tion and content) Bricklayer Helper Relationship Specialty Start Date End Date Vu Pulido MD [address] [place], [place] [id number] PCP - General Family Practice 11/16/21 Bricklayer Helper Relationship Specialty Start Date End Date Vu Pulido MD [address] [facility] [place] [place] [address] PCP - General Family Practice 11/16/21 Bricklayer Helper Relationship Specialty Start Date End Date Vu Pulido MD [address] [facility] [place] [place] [address] PCP - General Family Practice 11/16/21 Bricklayer Helper Relationship Specialty Start Date End Date Vu Pulido MD [address] [facility] [place] [place] [address] PCP - General Family Practice 11/16/21 Bricklayer Helper Relationship Specialty Start Date End Date Vu Pulido MD [address] [facility] [place] [place] [address] PCP - General Family Practice 11/16/21 Bricklayer Helper Relationship Specialty Start Date End Date Vu Pulido MD [address] [facility] [place] [address] PCP - General Family Practice 11/16/21 Bricklayer Helper Relationship Specialty Start Date End Date Vu Pulido MD [address] [facility] [place] [address] PCP - General Family Practice 11/16/21 Bricklayer Helper Relationship Specialty Start Date End Date Vu Pulido MD [address] [facility] [place] [address] PCP - General Family Practice 11/16/21 Bricklayer Helper Relationship Specialty Start Date End Date Vu Pulido MD [address] [facility] [place] [address] PCP - General Family Practice 11/16/21 Bricklayer Helper Relationship Specialty Start Date End Date Vu Pulido MD [address] [facility] [place] [address] PCP - General Family Medicine 11/16/21 Bricklayer Helper Relationship Specialty Start Date End Date Vu Pulido MD [address] [facility] [place] [address] PCP - General Family Medicine 11/16/21 Bricklayer Helper Relationship Specialty Start Date End Date Vu Pulido MD [address] [facility] [place] [address] PCP - General Family Medicine 11/16/21 Bricklayer Helper Relationship Specialty Start Date End Date Vu Pulido MD [address] [facility] [place] [address] PCP - General Family Medicine 11/16/21 Bricklayer Helper Relationship Specialty Start Date End Date Vu Pulido MD [address] [facility] [place] [address] PCP - General Family Medicine 11/16/21 Bricklayer Helper Relationship Specialty Start Date End Date Vu Pulido MD [address] [facility] [place] [address] PCP - General Family Medicine 11/16/21 Bricklayer Helper Relationship Specialty Start Date End Date Vu Pulido MD [address] [facility] [place] [address] PCP - General Family Medicine 11/16/21 Bricklayer Helper Relationship Specialty Start Date End Date Vu Pulido MD [address] [facility] [place] [address] PCP - General Family Medicine 11/16/21 Bricklayer Helper Relationship Specialty Start Date End Date Vu Pulido MD [address] [facility] [place] [address] PCP - General Family Medicine 11/16/21 Bricklayer Helper Relationship Specialty Start Date End Date Vu Pulido MD [address] [facility] [place] [address] PCP - General Family Medicine 11/16/21 Bricklayer Helper Relationship Specialty Start Date End Date Vu Pulido MD [address] [facility] [place] [address] PCP - General Family Medicine 11/16/21 Bricklayer Helper Relationship Specialty Start Date End Date Vu Pulido MD [address] [facility] [place] [address] PCP - General Family Medicine 11/16/21 Team Status: Active Member Role Status Dates Dr. Kaiden Durham III, MD Family Provider Active Dr. Vu Pulido MD Primary Care Provider Active Team Status: Inactive Member Role Status Dates Dr. Vu Pulido MD Primary Care Provider, Referring Provider Active Dr. Brady Ferrer MD Attending Provider Active Team Status: Inactive Member Role Status Dates Dr. Vu Pulido MD Primary Care Provider, Referring Provider Active Maynor ANDRADE, PA Attending Provider Active Team Status: Inactive Member Role Status Dates Dr. Vu Pulido MD Primary Care Provider, Referring Provider Active RAYMOND Levy Attending Provider Active Team Status: Active Member Role Status Dates Dr. Vu Pulido MD Primary Care Provider Active Dr. Jozef Grant DO Emergency Provider Active Dr. Yonatan Morrissey MD Admit Provi cruzito, Attending Provider, Other Provider Active Team Status: Active Member Role Status Dates Dr. Vu Pulido MD Primary Care Provider Active Dr. Brady Ferrer MD Attending Provider Active Team Status: Active Member Role Status Dates Dr. Vu Pulido MD Primary Care Provider Active Dr. Jozef Grant DO Emergency Provider Active Dr. Yonatan Morrissey MD Admit Provider, Other Pro vider Active Dr. Lata Sagastume , Attending Provider, Other Provide r Active Team Status: Inactive Member Role Status Dates Dr. Vu Pulido MD Primary Care Provider Active Dr. Lion Horowitz MD Attending Provider, Emergency Pr ovider Active Team Status: Inactive Member Role Status Dates Dr. Vu uPlido MD Primary Care Provider Active Dr. Jozef Grant DO Emergency Provider Active Dr. Yonatan Morrissey MD Admit Provider, Other Pro vider Active Dr. Lata Sagastume , DO Attending Provider Active Bricklayer Helper Relationship Specialty Start Date End Date Vu Pulido MD [address] [facility] [place] [address] PCP - General Family Medicine 11/16/21 Bricklayer Helper Relationship Specialty Start Date End Date Vu Pulido MD [address] [place] [address] PCP - General Family Medicine 11/16/21 Bricklayer Helper Relationship Specialty Start Date End Date Vu Pulido MD [address] [place] [address] PCP - General Family Medicine 11/16/21 Bricklayer Helper Relationship Specialty Start Date End Date Vu Pulido MD [address] [place] [address] PCP - General Family Medicine 11/16/21 Bricklayer Helper Relationship Specialty Start Date End Date Vu Pulido MD [address] [place] [address] PCP - General Family Medicine 11/16/21 Bricklayer Helper Relationship Specialty Start Date End Date Vu Pulido MD [address] [place] [address] PCP - General Family Medicine 11/16/21 Bricklayer Helper Relationship Specialty Start Date End Date Vu Pulido MD [address] [place] [address] PCP - General Family Medicine 11/16/21 Bricklayer Helper Relationship Specialty Start Date End Date Vu Pulido MD [address] [facility] [place] [address] PCP - General Family Medicine 11/16/21 Bricklayer Helper Relationship Specialty Start Date End Date Vu Pulido MD [address] [facility] [place] [address] PCP - General Family Medicine 11/16/21 Bricklayer Helper Relationship Specialty Start Date End Date Vu Pulido MD [address] [facility] [place] [address] PCP - General Family Medicine 11/16/21 Bricklayer Helper Relationship Specialty Start Date End Date Vu Pulido MD [address] [facility] [place] [address] PCP - General Family Medicine 11/16/21 Bricklayer Helper Relationship Specialty Start Date End Date Vu Pulido MD [address] [facility] [place] [address] PCP - General Family Medicine 11/16/21 Bricklayer Helper Relationship Specialty Start Date End Date Vu Pulido MD [address] [facility] [place] [address] PCP - General Family Medicine 11/16/21 Bricklayer Helper Relationship Specialty Start Date End Date Vu Pulido MD [address] [facility] [place] [address] PCP - General Family Medicine 11/16/21 Bricklayer Helper Relationship Specialty Start Date End Date Vu Pulido MD [address] [facility] [place] [address] PCP - General Family Medicine 11/16/21 Bricklayer Helper Relationship Specialty Start Date End Date Vu Pulido MD [address] [facility], [place] [address] PCP - General Family Medicine 11/16/21 Bricklayer Helper Relationship Specialty Start Date End Date Vu Pulido MD [address] [facility], [place] [address] PCP - General Family Medicine 11/16/21 Olinda Chester, ELECTRONICS ASSEMBLER AND TESTER.CHOCOLATE PRODUCTION MACHINE OPERATOR [address] [facility], [place] [address] Flat Sorter Processor [facility] 10/26/24 Darcie Mccann ELECTRONICS ASSEMBLER AND TESTER.CHOCOLATE PRODUCTION MACHINE OPERATOR [address] [place] [address] [facility] 10/26/24 Bricklayer Helper Relationship Specialty Start Date End Date Vu Pulido MD [address] [place], [place] [address] PCP - General Family Medicine 11/16/21 Olinda Chester, ELECTRONICS ASSEMBLER AND TESTER.CHOCOLATE PRODUCTION MACHINE OPERATOR [address] [place], [place] [address] [facility] 10/26/24 Darcie Mccann ELECTRONICS ASSEMBLER AND TESTER.CHOCOLATE PRODUCTION MACHINE OPERATOR [address] [facility], [place] [address] Former[facility] 10/26/24 Team Status: Inactive Member Role Status Dates Dr. Vu Pulido MD Primary Care Provider Active Start: May 04, 2025 End: May 04, 2025 Dr. Vu Pulido MD Referring Provider Active Start: May 04, 2025 End: May 04, 2025 Riley Munson TABLET REPAIR, TABLET REPAIR-C Attending Provider Active S tart: May 04, 2025 End: May 04, 2025 Bricklayer Helper Relationship Specialty Start Date End Date Vu Pulido MD [address] [facility] [place] [address] PCP - General Family Medicine 11/16/21 Olinda Chester APRN.CHOCOLATE PRODUCTION MACHINE OPERATOR [address] [place] [address] Flat Sorter Processor Family [facility] 10/26/24 Darcie Mccann APRN.CHOCOLATE PRODUCTION MACHINE OPERATOR [address] [facility] [place] [address] Formerly [facility] 10/26/24 Bricklayer Helper Relationship Specialty Start Date End Date Vu Pulido MD [address] [facility] [place] [address] PCP - General Family Medicine 11/16/21 Olinda Chester ELECTRONICS ASSEMBLER AND TESTER.CHOCOLATE PRODUCTION MACHINE OPERATOR [address] [facility] [place] [address] Flat [facility] 10/26/24 Darcie Mccann APRN.CHOCOLATE PRODUCTION MACHINE OPERATOR [address] [facility] [place] [address] Flat [facility] 10/26/24 Bricklayer Helper Relationship Specialty Start Date End Date Vu Pulido MD [address] [facility] [place] [address] PCP - General Family Medicine 11/16/21 Olinda Chester APRN.CHOCOLATE PRODUCTION MACHINE OPERATOR [address] [place] [address] Flat Sorter Processor Family Medicine 10/26/24 Darcie Mccann APRN.CHOCOLATE PRODUCTION MACHINE OPERATOR [address] [place], [place] [address] [facility]ly [facility] 10/26/24 Bricklayer Helper Relationship Specialty Start Date End Date Vu Pulido MD [address] [place], [place] [id number] PCP - General Family Medicine 11/16/21 Olinda Chester APRN.CHOCOLATE PRODUCTION MACHINE OPERATOR [address] [place], [place] [address] Former[facility] 10/26/24 Darcie Mccann APRN.CHOCOLATE PRODUCTION MACHINE OPERATOR [address] [place], [place] [id number] [facility] 10/26/24 Goals (unrecognized section and content) Goals may be documented in a n alternate sectionGoals may be documented in an alternate sectionGoals may be documented in an alternate section (unrecognized sect ion and content) No Status Records FoundNo Status Records FoundNo Status Records Found INFORMATION SOURCE (unrecogn ized section and content) DATE CREATED AUTHOR 08/19/2022 [facility] ([place]) DATE CREATED AUTHOR AUTHOR'S ORGANIZ ATION 05/07/2025 [facility] DATE CREATED AUTHOR AUTHOR'S ORGANIZ ATION 07/17/2025 [facility] FOR RECORDS PERTAINING TO PATIENTS WHO ARE OR HAVE BEEN ENROLLED IN A CHEMICAL DEPENDENCY/SUBSTANCEABUSE PROGRAM, SOME INFORMATION MAY BE OMITTED. This clinical summary was aggregated from multiple sources. Caution should be exercised in using it in the provision of clinical care. This summary normalizes information from multiple sources, and as a consequence, information in this document may materially change the coding, format and clinical context of patient data. In addition, data may be omitted in some cases. CLINICAL DECISIONS SHOULD BE BASED ON THE PRIMARY CLINICAL RECORDS. [employer] [facility]. provides no warranty or guarantee of the accuracy or completeness of information in this document.
[2025-08-20 04:58] LABS: Hematocrit 39.7 % (40-54); Hemoglobin 13.3 g/dL (13.0-16.5); Mean Corp Hgb Conc 33.5 g/dL (32-36); Mean Corpuscular Volume 95.9 fL (80-94); Mean Platelet Vol. 10.3 fl (6.2-12.0); Platelet Count 267 K/mm3 (150-450); RBC Distribution Width CV 13.3 % (11.6-14.6); RBC Distribution Width SD 47.0 fl (35.1-43.9); Red Blood Count 4.14 M/mm3 (4.6-6.2); White Blood Count 7.3 K/mm3 (4.4-11.0)
[2025-08-20 05:28] LABS: Anion Gap 12 (5-15); BUN 9 mg/dL (4-19); BUN/Creat Ratio 19.1 RATIO (10-20); Calcium,Total 8.6 mg/dL (7.6-11.0); Carbon Dioxide 21.5 mmol/L (21.0-32.0); Chloride 103 mmol/L (98-108); Estimated Creatinine Clearance 61.06 ml/min (50-250); Glucose 97 mg/dL (70-99); Potassium 3.6 mmol/L (3.3-5.1)
--- NOTE | 2025-08-20 07:26 | PN.HOSP_ITS ---
Reason for Visit Chief Complaint: Worsening cough with shortness of breath and fatigue Objective Data Objective Data Vital Signs: Vital Signs Temp Pulse Resp BP Pulse Ox O2 Del Method O2 Flow Rate 97.4 F L 101 H 21 H 124/71 H 95 Nasal Cannula 2 08/19/25 23:00 08/20/25 07:00 08/20/25 07:00 08/20/25 07:00 08/20/25 07:00 08/20/25 07:00 08/20/25 07:00 Oxygen Flow Rate (L/min) 2 Oxygen Delivery Method Nasal Cannula Weight: 62.8 kg Body Mass Index (BMI) 18.2 Intake & Output: Intake and Output for Last 24 Hours 08/18/25 08/19/25 08/20/25 23:59 23:59 23:59 Intake Total 281.01 / 286.01 40.00 / 40.00 Output Total 450 / 450 Balance -168.99 / -163.99 40.00 / 40.00 Lab / Micro Data 08/20/25 04:38 08/20/25 04:38 Labs: Laboratory Results - last 24 hr 08/19/25 11:36: WBC 9.2, RBC 4.50 L, Hgb 14.4, Hct 42.7, MCV 94.9 H, MCH 32.0, MCHC 33.7, RDW Std Deviation 46.3 H, RDW Coeff of Francis 13.2, Plt Count 294, MPV 10.4, Immature Gran % (Auto) 0.300, Neut % (Auto) 67.1, Lymph % (Auto) 12.3 L, M yarely % (Auto) 15.0 H, Eos % (Auto) 5.0, Baso % (Auto) 0.3, Absolute Neuts (auto) 6.2, Absolute Lymphs (auto) 1.13, Nucleated RBC % 0, Sodium 137, Potassium 3.8, Chloride 103, Carbon Dioxide 22.6, Anion Gap 11, BUN 8, Creatinine 0.54 L, Estim Creat Clear Calc 64.07, Est GFR (MDRD) Non-Af 98, BUN/Creatinine Ratio 14.7, G lucose 103 H, Calcium 9.0, Phosphorus 3.1, Magnesium 1.9, Troponin T High Sens 15, NT pro BNP II 1142, TSH 3.680 08/19/25 11:55: Lactic Acid 1.4 08/19/25 13:46: Troponin T Hi Sens 2 Hr 17 08/19/25 15:50: Troponin T Hi Sens 4Hr 15 08/20/25 04:38: WBC 7.3, RBC 4.14 L, Hgb 13.3, Hct 39.7 L, MCV 95.9 H, MCH 32.1 H, MCHC 33.5, RDW Std Deviation 47.0 H, RDW Coeff of Francis 13.3, Plt Count 267, MPV 10.3, Sodium 137, Potassium 3.6, Chloride 103, Carbon Dioxide 21.5, Anion Gap 12, BUN 9, Creatinine 0.49 L, Estim Creat Clear Calc 61.06, Est GFR (MDRD) Non-Af 101, BUN/Creatinine Ratio 19.1, Glucose 97, Calcium 8.6 Micro: Microbiology 08/19/25 17:31 Mucosa - Nasopharyngeal Respiratory Panel (PCR) - Final Rhinovirus Radiography Diagnostic Testing: Radiology Impression Chest X-Ray 08/19/25 11:40 IMPRESSION: 1. Emphysema 2. Scant pleural fluid. Mild scarring. No consolidation. Reading Location: [facility] Rhythm Strip Rhythm Strip: A-fib Rate: 122 Ectopy: None Physical Exam Narrative GENERAL: In no apparent distress HEENT: Atraumatic; normocephalic EYES; Anicteric, Normal Conjunctiva NECK; supple, normal thyroid, RESPIRATORY: Diminished to auscultation CARDIOVASCULAR: Irregularly irregular tachycardic GI: soft, normoactive bowel sounds, : No Renal angle tenderness; EXTREMITIES: No edema, no clubbing, MUSCULOSKELETAL: no muscle wasting NEURO: Awake; no lateralizing signs. SKIN: No Rash PSYCH; cooperative Assessment & Plan Assessment/Plan (1) Atrial fibrillation with RVR: PLAN: Plan Patient is an 85-year-old gentleman with multiple comorbidities who presented to the emergency department with progressive generalized weakness shortness of breath as well as cough. Patient was found to be in A-fib with RVR. Also tested positive for rhinovirus admitted to the monitored bed for further management 1. Paroxysmal A-fib with RVR ? Patient admitted to monitored bed started on Cardizem drip titrated to keep heart rate less than 100. Patient still remains on Cardizem drip. And heart rate remains elevated. Plan is to add p.o. Cardizem 2. Acute rhinovirus infection ? Chest x-ray obtained on admission demonstrated no consolidation did demonstrate mild scarring and scant pleural effusion as well as evidence of emphysema. Plan is to continue current symptom management 3. Chronic congestive heart failure with preserved ejection fraction ? Patient remains compensated 4. COPD/emphysema ? Did continue patient aerosol treatment in addition to supplemental oxygen 5. Seizure disorder ? Controlled on levetiracetam 6. Hypothyroidism ? Patient is on levothyroxine home dose continued 7. Physical deconditioning ? Requested for PT OT eval and social media coordinator to assist with discharge planning 8. DVT prophylaxis ? On enoxaparin Time spent in the patient's overall evaluation,decision-making process, review of diagnostic data, adjustment of management, discussion with other providers, nursing nursing and ancillary staff involved in patient's care documentation, 50 Minutes Charges/Coding Visit Charges Inpatient E&M: [address]87 [place] [id number]
--- NOTE | 2025-08-20 12:45 | CASEMGMT ---
RN ELLIOT FLATWORK TIER ELLIOT to room to meet with patient for initial transition planning/care coordination assessment. VERONICA ZARATE introduced self and role at [facility]. Pt voices understanding and consents to assessment at this time. Pt resting in bed in no distress at this time. and sis-in-law @ bedside, pt agreeable to her being present during assessment. Pt is A/O at this time and answers all questions appropriately. Care providers, pharmacy, and demographics verified/updated at this time. Strata: 2 PCP: Dr Blackman Specialists: [facility]/Cardiology Preferred Pharmacy: [facility] Insurance: [employer] [facility] Prescription Benefit: Yes LNOK: , Doris. Daughter, Maye Living Arrangements: Lives w/his in one-story home w/no steps to enter. assists w/ADL's, manages pt's medications, and does home mgnt tasks. Dtr, Maye, lives about 3 miles away and can assist, as needed. Transportation: DME: Pt has a walker, rollator, a specialized walker w/arm rests, shower chair, comfort height commode w/rails, pulse ox. They also just purchased a lift to assist pt w/getting off the floor d/t pt has fallen 4 times in past year d/t knees buckling. Does not have Home O2. Pt & made aware he will have home O2 testing be completed prior to discharge. If O2 is needed, prefers [employer]. HHC/SNF: No history of either. Pt wishes to return home and states has no concerns with going home at time of discharge. Pt and both decline HHC or OP therapy. Follow for home oxygen needs and any further discharge planning/needs. Pt and voice no further concerns/needs at this time. PLAN: Home w/spousal support. Follow for possible need of O2 @ [facility]. Green sheet placed on pt's chart w/home O2 set-up instructions if pt qualifies for O2 Follow for anti-coag. Aye ESCAMILLA RN, CM
[2025-08-20] MEDS: 0.9% Saline Lock 10 ML Syringe IV (13:19)
[2025-08-20] MEDS: Ensure Plus High Protein 120 ML LIQUID PO ×2 (13:19→17:02)
--- NOTE | 2025-08-20 14:10 | CHAPLAIN ---
Type of Pastoral Visit _x__ Initial Visit ___ Follow-up Visit ___ On-call Visit ___ General Patient Visit ___ Spiritual Assessment ___ Family Conference ___ Bereavement ___ Rapid Response ___ Code Blue ___ Other (describe below) Pastoral Care Referral From _x__ Patient ___ Family ___ Nurse ___ Physician ___ Mobile Device Developer ___ Targeteer ___ Other (describe below) Sacrament/Intervention _x__ Active listening ___ Anointing ___ Samaritan ___ Bereavement ___ Communion ___ Georgette exploration ___ ___ Life review _x__ Prayer ___ Reconciliation ___ Sacrament of Sick _x__ Supportive presence ___ Wedding ___ Other (describe below) Pastoral Comments patient and family members are in the room; pt is awake and is offered support; pt admits that he is only about half right now; pt is able to give some life review; spouse and other family members offered support and they interact in the conversation; pt denies 'knowing anything else that I need'; pt and family welcomes prayer
--- NOTE | 2025-08-21 01:57 | PCM.HOSP.N ---
Hospitalist Note Patient with recurrent PAF RVR, will given an additional cardizem 30 mg x 1 dose now.
[2025-08-21 05:12] VITALS: BP 116/73; PULSE 93; RESP 16; TEMP 36.3; O2SAT 94
[2025-08-21] MEDS: guaiFENesin 10 ML UDC (200MG/10ML) PO (05:16)
[2025-08-21] MEDS: 0.9% Saline Lock 10 ML Syringe IV (05:18)
[2025-08-21 05:40] LABS: Hematocrit 38.9 % (40-54); Hemoglobin 13.0 g/dL (13.0-16.5); Immature Granulocytes Count 0.050 X10^3/uL (0.0-0.0); Mean Corp Hgb Conc 33.4 g/dL (32-36); Mean Corpuscular Volume 95.1 fL (80-94); Mean Platelet Vol. 10.8 fl (6.2-12.0); NRBC Flagged by Analyzer 0 % (0-5); Platelet Count 321 K/mm3 (150-450); RBC Distribution Width CV 13.3 % (11.6-14.6); RBC Distribution Width SD 46.5 fl (35.1-43.9); Red Blood Count 4.09 M/mm3 (4.6-6.2); White Blood Count 10.9 K/mm3 (4.4-11.0)
[2025-08-21 06:06] LABS: Anion Gap 12 (5-15); BUN 13 mg/dL (4-19); BUN/Creat Ratio 21.7 RATIO (10-20); Calcium,Total 8.8 mg/dL (7.6-11.0); Carbon Dioxide 21.5 mmol/L (21.0-32.0); Chloride 103 mmol/L (98-108); Estimated Creatinine Clearance 61.06 ml/min (50-250); Glucose 102 mg/dL (70-99); Magnesium 2.0 mg/dL (1.5-2.2); Potassium 3.9 mmol/L (3.3-5.1)
--- NOTE | 2025-08-21 07:41 | PCM.PN.HOSP ---
Reason for Visit Chief Complaint: Worsening cough with shortness of breath and fatigue Subjective Subjective Patient seen still has a persistent cough. Heart rate control still not optimal. Patient was on Cardizem drip this was weaned off the day prior started patient on p.o. Cardizem. Did discuss with patient and the about plans regarding discharge. Goal is to get heart rate under control prior to making the decision Objective Data Objective Data Vital Signs: Vital Signs Temp Pulse Resp BP Pulse Ox O2 Del Method O2 Flow Rate 97.3 F L 93 16 116/73 94 Room Air 2 08/21/25 05:12 08/21/25 05:12 08/21/25 05:12 08/21/25 05:12 08/21/25 05:12 08/21/25 07:34 08/20/25 12:00 Oxygen Flow Rate (L/min) 2 Oxygen Delivery Method Room Air Weight: 62.8 kg Body Mass Index (BMI) 18.2 Intake & Output: Intake and Output for Last 24 Hours 08/19/25 08/20/25 08/21/25 23:59 23:59 23:59 Intake Total 281.01 / 286.01 896.83 / 1136.83 240 / 240 Output Total 450 / 450 Balance -168.99 / -163.99 896.83 / 1136.83 240 / 240 Lab / Micro Data 08/21/25 04:38 08/21/25 04:38 Labs: Laboratory Results - last 24 hr 08/21/25 04:38: WBC 10.9, RBC 4.09 L, Hgb 13.0, Hct 38.9 L, MCV 95.1 H, MCH 31.8, MCHC 33.4, RDW Std Deviation 46.5 H, RDW Coeff of Francis 13.3, Plt Count 321, MPV 10.8, Immature Gran % (Auto) 0.500, Neut % (Auto) 71.3 H, Lymph % (Auto) 11.0 L, [place] % (Auto) 13.7 H, Eos % (Auto) 3.1, Baso % (Auto) 0.4, Absolute Neuts (auto) 7.8 H, Absolute Lymphs (auto) 1.20, Nucleated RBC % 0, Sodium 136, Potassium 3.9, Chloride 103, Carbon Dioxide 21.5, Anion Gap 12, BUN 13, Creatinine 0.59 L, Estim Creat Clear Calc 61.06, Est GFR (MDRD) Non-Af 96, BUN/Creatinine Ratio 21.7 H, Glucose 102 H, Calcium 8.8, Phosphorus 2.9, Magnesium 2.0 Micro: Microbiology 08/19/25 17:31 Mucosa - Nasopharyngeal Respiratory Panel (PCR) - Final Rhinovirus Rhythm Strip Rhythm Strip: A-fib Rate: 122 Ectopy: None Physical Exam Narrative GENERAL: In no apparent distress HEENT: Atraumatic; normocephalic EYES; Anicteric, Normal Conjunctiva NECK; supple, normal thyroid, RESPIRATORY: Diminished to auscultation CARDIOVASCULAR: Irregularly irregular tachycardic GI: soft, normoactive bowel sounds, : No Renal angle tenderness; EXTREMITIES: No edema, no clubbing, MUSCULOSKELETAL: no muscle wasting NEURO: Awake; no lateralizing signs. SKIN: No Rash PSYCH; cooperative Assessment & Plan Assessment/Plan (1) Atrial fibrillation with RVR: PLAN: Plan Patient is an 85-year-old gentleman with multiple comorbidities who presented to the emergency department with progressive generalized weakness shortness of breath as well as cough. Patient was found to be in A-fib with RVR. Also tested positive for rhinovirus admitted to the monitored bed for further management 1. Paroxysmal A-fib with RVR ? Patient admitted to monitored bed started on Cardizem drip titrated to keep heart rate less than 100. Patient still remains on Cardizem drip. And heart rate remains elevated. Plan is to add p.o. Cardizem ? 08/21/2025;Heart rate control still not optimal. Patient was on Cardizem drip this was weaned off the day prior started patient on p.o. Cardizem. Did discuss with patient and the about plans regarding discharge. Goal is to get heart rate under control prior to making the decision 2. Acute rhinovirus infection ? Chest x-ray obtained on admission demonstrated no consolidation did demonstrate mild scarring and scant pleural effusion as well as evidence of emphysema. Plan is to continue current symptom management ? 08/21/2025; patient still has persistent cough, we will continue current symptom 3. Chronic congestive heart failure with preserved ejection fraction ? Patient remains compensated 4. COPD/emphysema ? Did continue patient aerosol treatment in addition to supplemental oxygen 5. Seizure disorder ? Controlled on levetiracetam 6. Hypothyroidism ? Patient is on levothyroxine home dose continued 7. Physical deconditioning ? Requested for PT OT eval and social media analyst to assist with discharge planning 8. DVT prophylaxis ? On enoxaparin Time spent in the patient's overall evaluation,decision-making process, review of diagnostic data, adjustment of management, discussion with other providers, nursing nursing and ancillary staff involved in patient's care documentation, 38 Minutes Charges/Coding Visit Charges Inpatient E&M: 48743 Subs Hosp L2
[2025-08-21 08:39] VITALS: PULSE 114
[2025-08-21] MEDS: Ensure Plus High Protein 120 ML LIQUID PO ×3 (08:42→17:24)
[2025-08-21 11:00] VITALS: BP 116/88; PULSE 110; RESP 17; TEMP 36.6; O2SAT 98
[2025-08-21 20:40] VITALS: BP 114/89; PULSE 93; RESP 18; TEMP 36.3; O2SAT 93
[2025-08-21 20:43] VITALS: PULSE 93
[2025-08-21 23:19] VITALS: BP 113/92; PULSE 105; RESP 16; O2SAT 95
--- NOTE | 2025-08-22 02:14 | PCM.HOSP.N ---
Hospitalist Note Patient similar to the evening prior with rate in the 120s, will administer an additional 30 mg p.o. x 1 of Cardizem as this significantly improved his rate the evening prior.
[2025-08-22 06:00] VITALS: BP 112/82; PULSE 94; RESP 18; TEMP 36.6; O2SAT 96
[2025-08-22 07:31] LABS: Hematocrit 40.8 % (40-54); Hemoglobin 13.6 g/dL (13.0-16.5); Immature Granulocytes Count 0.070 X10^3/uL (0.0-0.0); Mean Corp Hgb Conc 33.3 g/dL (32-36); Mean Corpuscular Volume 95.6 fL (80-94); Mean Platelet Vol. 10.5 fl (6.2-12.0); NRBC Flagged by Analyzer 0 % (0-5); Platelet Count 298 K/mm3 (150-450); RBC Distribution Width CV 13.5 % (11.6-14.6); RBC Distribution Width SD 47.0 fl (35.1-43.9); Red Blood Count 4.27 M/mm3 (4.6-6.2); White Blood Count 9.5 K/mm3 (4.4-11.0)
--- NOTE | 2025-08-22 07:55 | PCM.PN.HOSP ---
Reason for Visit Chief Complaint: Worsening cough with shortness of breath and fatigue Subjective Subjective Patient seen heart rate control improved plans for patient to be assessed for discharge Objective Data Objective Data Vital Signs: Vital Signs Temp Pulse Resp BP Pulse Ox O2 Del Method O2 Flow Rate 97.8 F 94 18 112/82 H 96 Room Air 2 08/22/25 06:00 08/22/25 06:00 08/22/25 06:00 08/22/25 06:00 08/22/25 06:00 08/22/25 07:44 08/21/25 14:00 Oxygen Flow Rate (L/min) 2 Oxygen Delivery Method Room Air Weight: 62.8 kg Body Mass Index (BMI) 18.2 Intake & Output: Intake and Output for Last 24 Hours 08/20/25 08/21/25 08/22/25 23:59 23:59 23:59 Intake Total 896.83 / 1136.83 1320 / 1320 Balance 896.83 / 1136.83 1320 / 1320 Lab / Micro Data 08/22/25 07:07 08/22/25 07:07 Labs: Laboratory Results - last 24 hr 08/22/25 07:07: WBC 9.5, RBC 4.27 L, Hgb 13.6, Hct 40.8, MCV 95.6 H, MCH 31.9, MCHC 33.3, RDW Std Deviation 47.0 H, RDW Coeff of Francis 13.5, Plt Count 298, MPV 10.5, Immature Gran % (Auto) 0.700, Neut % (Auto) 71.6 H, Lymph % (Auto) 11.2 L, [place] % (Auto) 13.8 H, Eos % (Auto) 2.3, Baso % (Auto) 0.4, Absolute Neuts (auto) 6.8, Absolute Lymphs (auto) 1.06, Nucleated RBC % 0 Micro: Microbiology 08/19/25 17:31 Mucosa - Nasopharyngeal Respiratory Panel (PCR) - Final Rhinovirus Rhythm Strip Rhythm Strip: A-fib Rate: 122 Ectopy: None Physical Exam Narrative GENERAL: In no apparent distress HEENT: Atraumatic; normocephalic EYES; Anicteric, Normal Conjunctiva NECK; supple, normal thyroid, RESPIRATORY: Diminished to auscultation CARDIOVASCULAR: Irregularly irregular tachycardic GI: soft, normoactive bowel sounds, : No Renal angle tenderness; EXTREMITIES: No edema, no clubbing, MUSCULOSKELETAL: no muscle wasting NEURO: Awake; no lateralizing signs. SKIN: No Rash PSYCH; cooperative Assessment & Plan Assessment/Plan (1) Atrial fibrillation with RVR: PLAN: Plan Patient is an 85-year-old gentleman with multiple comorbidities who presented to the emergency department with progressive generalized weakness shortness of breath as well as cough. Patient was found to be in A-fib with RVR. Also tested positive for rhinovirus admitted to the monitored bed for further management 1. Paroxysmal A-fib with RVR ? Patient admitted to monitored bed started on Cardizem drip titrated to keep heart rate less than 100. Patient still remains on Cardizem drip. And heart rate remains elevated. Plan is to add p.o. Cardizem ? 08/21/2025;Heart rate control still not optimal. Patient was on Cardizem drip this was weaned off the day prior started patient on p.o. Cardizem. Did discuss with patient and the about plans regarding discharge. Goal is to get heart rate under control prior to making the decision ? 08/22/2025; heart rate controlled improved plans for patient to be assessed for discharge 2. Acute rhinovirus infection ? Chest x-ray obtained on admission demonstrated no consolidation did demonstrate mild scarring and scant pleural effusion as well as evidence of emphysema. Plan is to continue current symptom management ? 08/21/2025; patient still has persistent cough, we will continue current symptom 3. Chronic congestive heart failure with preserved ejection fraction ? Patient remains compensated 4. COPD/emphysema ? Did continue patient aerosol treatment in addition to supplemental oxygen 5. Seizure disorder ? Controlled on levetiracetam 6. Hypothyroidism ? Patient is on levothyroxine home dose continued 7. Physical deconditioning ? Requested for PT OT eval and social science professor to assist with discharge planning 8. DVT prophylaxis ? On enoxaparin Time spent in the patient's overall evaluation,decision-making process, review of diagnostic data, adjustment of management, discussion with other providers, nursing nursing and ancillary staff involved in patient's care documentation, 35 Minutes Charges/Coding Visit Charges Inpatient E&M: 00302 Subs Hosp L2
[2025-08-22 08:17] VITALS: PULSE 113
[2025-08-22 08:17] LABS: Anion Gap 11 (5-15); BUN 11 mg/dL (4-19); BUN/Creat Ratio 20.1 RATIO (10-20); Calcium,Total 8.8 mg/dL (7.6-11.0); Carbon Dioxide 23.2 mmol/L (21.0-32.0); Chloride 105 mmol/L (98-108); Estimated Creatinine Clearance 61.06 ml/min (50-250); Glucose 96 mg/dL (70-99); Potassium 3.9 mmol/L (3.3-5.1)
[2025-08-22] MEDS: Ensure Plus High Protein 120 ML LIQUID PO (08:17)
--- NOTE | 2025-08-22 09:49 | PCM.DC.SUM ---
Providers Date of Admission: 08/19/25 Date of Discharge: 08/22/25 Primary Care Physician: Dr. Vu Blackman MD Reason For Visit: AFIB W/ RVR Diagnosis Discharge Diagnosis (1) Atrial fibrillation with RVR: Status: Acute Code(s): I48.91 - Unspecified atrial fibrillation Plan Patient is an 85-year-old gentleman with multiple comorbidities who presented to the emergency department with progressive generalized weakness shortness of breath as well as cough. Patient was found to be in A-fib with RVR. Also tested positive for rhinovirus admitted to the monitored bed for further management 1. Paroxysmal A-fib with RVR ? Patient admitted to monitored bed started on Cardizem drip titrated to keep heart rate less than 100. Patient still remains on Cardizem drip. And heart rate remains elevated. Plan is to add p.o. Cardizem ? 08/21/2025;Heart rate control still not optimal. Patient was on Cardizem drip this was weaned off the day prior started patient on p.o. Cardizem. Did discuss with patient and the about plans regarding discharge. Goal is to get heart rate under control prior to making the decision ? 08/22/2025; heart rate controlled improved plans for patient to be assessed for discharge patient's [id number] score: 6 however decision was made not to anticoagulate by patient primary assembler watch train given significant risk for falls which outweighs any benefit. 2. Acute rhinovirus infection ? Chest x-ray obtained on admission demonstrated no consolidation did demonstrate mild scarring and scant pleural effusion as well as evidence of emphysema. Plan is to continue current symptom management ? 08/21/2025; patient still has persistent cough, we will continue current symptom 3. Chronic congestive heart failure with preserved ejection fraction ? Patient remains compensated 4. COPD/emphysema ? Did continue patient aerosol treatment in addition to supplemental oxygen 5. Seizure disorder ? Controlled on levetiracetam 6. Hypothyroidism ? Patient is on levothyroxine home dose continued 7. Physical deconditioning ? Requested for PT OT eval and social media content manager to assist with discharge planning 8. DVT prophylaxis ? On enoxaparin Time spent in the patient's overall evaluation,decision-making process, review of diagnostic data, adjustment of management, discussion with other providers, nursing nursing and ancillary staff involved in patient's care documentation, 35 Minutes Medications at Discharge Home Medications levetiracetam 750 mg tablet 750 mg PO BID seizures 12/15/20 levothyroxine 25 mcg tablet 25 mcg PO DAILY thyroid 08/17/22 vitamin E (dl, acetate) 180 mg (400 unit) capsule 180 mg PO DAILY vitamin 08/17/22 albuterol sulfate 90 mcg/actuation aerosol inhaler (Proventil HFA) 2 puff inhalation Q6H PRN shortness of breath or wheezing #6.7 grams 09/23/22 folic acid 1 mg tablet 1 mg PO QDAY 02/17/24 cholecalciferol (vitamin D3) 10 mcg (400 unit) chewable tablet 10 mcg PO QDAY 05/04/25 xwxbdjca-fczhtniz-vgslt acid 400 mcg-vit K 20 mcg-lycop 300 mcg tablet (One-A-Day Men's Multivitamin) 4 tab PO DAILY Supplement 05/04/25 potassium chloride 20 mEq tablet,extended release 20 meq PO DAILY #90 tabs 05/04/25 diltiazem HCl 120 mg capsule,extended release 24 hr 120 mg PO Q12 60 days #120 caps 08/22/25 guaifenesin 600 mg tablet, extended release 12 hr (Mucinex) 1,200 mg (2 x 600 mg) PO BID 10 days #40 tabs 08/22/25 metoprolol tartrate 25 mg tablet 25 mg PO BID 60 days #120 tabs 08/22/25 Physical Exam Narrative GENERAL: In no apparent distress HEENT: Atraumatic; normocephalic EYES; Anicteric, Normal Conjunctiva NECK; supple, normal thyroid, RESPIRATORY: Diminished to auscultation CARDIOVASCULAR: Irregularly irregular GI: soft, normoactive bowel sounds, : No Renal angle tenderness; EXTREMITIES: No edema, no clubbing, MUSCULOSKELETAL: no muscle wasting NEURO: Awake; no lateralizing signs. SKIN: No Rash PSYCH; cooperative Weight / BMI Weight Weight: 62.8 kg Body Mass Index (BMI) 18.2 ABG / Lab / Microbiology Data 08/22/25 07:07 08/22/25 07:07 Laboratory: Laboratory Results - last 24 hr 08/22/25 07:07: WBC 9.5, RBC 4.27 L, Hgb 13.6, Hct 40.8, MCV 95.6 H, MCH 31.9, MCHC 33.3, RDW Std Deviation 47.0 H, RDW Coeff of Francis 13.5, Plt Count 298, MPV 10.5, Immature Gran % (Auto) 0.700, Neut % (Auto) 71.6 H, Lymph % (Auto) 11.2 L, [place] % (Auto) 13.8 H, Eos % (Auto) 2.3, Baso % (Auto) 0.4, Absolute Neuts (auto) 6.8, Absolute Lymphs (auto) 1.06, Nucleated RBC % 0, Sodium 140, Potassium 3.9, Chloride 105, Carbon Dioxide 23.2, Anion Gap 11, BUN 11, Creatinine 0.54 L, Estim Creat Clear Calc 61.06, Est GFR (MDRD) Non-Af 98, BUN/Creatinine Ratio 20.1 H, Glucose 96, Calcium 8.8 Microbiology: Microbiology 08/19/25 17:31 Mucosa - Nasopharyngeal Respiratory Panel (PCR) - Final Rhinovirus D/C Instructions Discharge Activity: Return to Normal Activity Call your doctor if you observe: Fever of 101 or Higher, Shortness of breath, Fainting spells and Chest pain DC O2, CPAP, BIPAP Needs Home O2 Discharge instructions: No Meaningful Use Info Meaningful Use Meaningful Use Diagnoses (Choose all that apply): None applicable Discharge Plan Admission Admit Date/Time: 08/19/25 14:47 Attending Provider: Martinez Ames Primary Care Provider: Vu Blackman Consulting Providers: Noe Patterson Discharge Orders/Prescriptions Prescriptions: New diltiazem HCl 120 mg Capsule,Extended Release 24hr 120 mg PO Q12 60 Days Qty: 120 0RF metoprolol tartrate 25 mg Tablet 25 mg PO BID 60 Days Qty: 120 0RF guaifenesin [Mucinex] 600 mg tablet extended release 12hr 1,200 mg PO BID 10 Days Qty: 40 0RF Continued vitamin E (dl, acetate) 180 mg (400 unit) capsule 180 mg PO DAILY levothyroxine 25 mcg tablet 25 mcg PO DAILY Patient Comments: TAKE 1 TABLET BY MOUTH ONCE DAILY. TAKE ON EMPTY STOMACH. FOR THYROID. folic acid 1 mg tablet 1 mg PO QDAY cholecalciferol (vitamin D3) 10 mcg (400 unit) tablet,chewable 10 mcg PO QDAY One-A-Day Men's Multivitamin 400-20-300 mcg tablet 4 tab PO DAILY potassium chloride 20 mEq tablet extended release 20 meq PO DAILY Qty: 90 3RF levetiracetam 750 MG tablet 750 mg PO BID albuterol sulfate [Proventil HFA] 90 mcg/actuation HFA aerosol inhaler 2 puff inhalation Q6H PRN (Reason: shortness of breath or wheezing) Qty: 6.7 1RF Referrals / Follow Up: Vu Blackman MD [Primary Care Provider, Medical] - Within 1 Week Disposition Disposition (needs filled in before D/C Order can be placed): Home, Self Care Charges/Coding Visit Charges Inpatient E&M: 99703 Disch Hosp >30min
[2025-08-22 10:47] VITALS: O2SAT 94; O2SAT 96
[2025-08-22 12:00] VITALS: BP 114/76; PULSE 94; RESP 16; TEMP 36.8; O2SAT 96
== END 2025-08-22 12:30 | disposition home or self-care (01) | DRG 309 ==
LOC: ED 14:52 → PCU 15:12
PROVIDERS: Admitting Provider Hospitalist; Emergency Provider Emergency Medicine; PCP Family Medicine; Visit Provider Internal Medicine
DX: I48.0 Paroxysmal atrial fibrillation (principal); I50.32 Chronic diastolic (congestive) heart failure; B34.8 Other viral infections of unspecified site; Z66 Do not resuscitate; G20.A1 Parkinson's disease without dyskinesia, without mention of fluctuations; G40.909 Epilepsy, unspecified, not intractable, without status epilepticus; J43.9 Emphysema, unspecified; E03.9 Hypothyroidism, unspecified; I11.0 Hypertensive heart disease with heart failure; Z87.891 Personal history of nicotine dependence; Z79.51 Long term (current) use of inhaled steroids; Z79.899 Other long term (current) drug therapy; Z86.73 Personal history of transient ischemic attack (TIA), and cerebral infarction without residual deficits
CPT/HCPCS: 36415; 71046; 80048; 83605; 83735; 83880; 84100; 84443; 84484; 85025; 85027; 87633; 93005; 94668; 97116; 97162; 97166; 97530; 97535; 99285; A4216; J1938

== ENCOUNTER → 2025-10-19 | Outpatient (CLI) | payer MEDICARE, SELFPAY ==
--- NOTE | 2025-10-19 14:00 | RAD_ITS ---
PROCEDURE: CHEST PA AND LATERAL 10/19/2025 REASON FOR EXAM: COUGH, TECHNIQUE: Procedure Code: RADCXR Modality: DX Procedure: CHEST PA AND LATERAL COMPARISON: 08/19/2025 FINDINGS: Hyperinflated lungs likely reflective of COPD/pulmonary emphysema. Bibasilar scarring. Underlying chronic lung disease not excluded. Right lower lobe opacity likely atelectasis although aspiration or pneumonia not excluded. Mild right base effusion. Cardiac silhouette is unchanged. Calcified aortic arch. Osseous structures are grossly unchanged RAD/Chest PA and Lateral IMPRESSION: Hyperinflated lungs likely reflective of COPD/pulmonary emphysema. Underlying chronic lung disease not excluded. Right lower lobe opacity likely atelectasis although aspiration or pneumonia no t excluded. Mild right base effusion. Reading Location: [id number]
== END | disposition home or self-care (01) ==
LOC: RAD 13:57
PROVIDERS: PCP Family Medicine; Referring Provider Nurse Practitioner Family; Visit Provider Nurse Practitioner Family
DX: R05.9 Cough, unspecified (principal); I48.0 Paroxysmal atrial fibrillation; J90 Pleural effusion, not elsewhere classified; I10 Essential (primary) hypertension
CPT/HCPCS: 71046